=== PATIENT | female | born 1945 | race Caucasian/White ===

== ENCOUNTER 2016-11-22 14:05 | Inpatient (IN) | payer MEDICARE, BC ==
[2016-11-22] MEDS ORDERED: SODIUM CHLORIDE 0.9% 500 ML IV STA (14:42)
[2016-11-22] MEDS ORDERED: SODIUM CHLORIDE 0.9% 1,000 ML IV STA (14:42)
[2016-11-22] MEDS ORDERED: METOCLOPRAMIDE 5 MG/ML 2 ML VIAL IVP STA (14:42)
[2016-11-22 14:53] LABS: Basophils % (A) 0 %; CH 31.6; CHCM 33.8; Eosinophils % (A) 0 %; HCT 48.9 % (34.0-46.0); HDW 2.53; HGB 15.8 gm/dL (11.4-16.0); Luc # (Auto) 0.08; Luc % (Auto) 1; Lymphocytes # (A) 1.1 k/uL (1.0-4.8); Lymphocytes % (A) 11 %; MCH 30.4 pg (25.0-35.0); MCHC 32.4 g/dL (31.0-37.0); MCV 94.1 fL (80.0-100.0); Mean Platelet Volume 8.7; Monocytes # (A) 0.4 k/uL (0-1.0); Monocytes % (A) 4 %; Neutrophils # (A) 8.1 k/uL (1.3-7.7); Neutrophils % (A) 84 %; RDW 13.5 % (11.5-15.5); WBC 9.7 k/uL (3.8-10.6); WBC (Perox) 9.56
[2016-11-22 14:58] LABS: ALT 322 U/L (9-52); AST 225 U/L (14-36); Alkaline Phosphatase 155 U/L (38-126); Anion Gap 11 mmol/L; Blood Urea Nitrogen 15 mg/dL (7-17); Calcium 9.4 mg/dL (8.4-10.2); Carbon Dioxide 25 mmol/L (22-30); Chloride 106 mmol/L (98-107); Glucose 106 mg/dL (74-99); Magnesium 1.9 mg/dL (1.6-2.3); Non-African American GFR(MDRD) >60 (>60 ml/min/1.73 sqM); Potassium 3.6 mmol/L (3.5-5.1); Sodium 142 mmol/L (137-145); Total Bilirubin 2.8 mg/dL (0.2-1.3)
[2016-11-22 15:00] LABS: Creatine Kinase 52 U/L (30-135)
[2016-11-22 15:13] LABS: INR 1.2 (<1.1); Partial Thromboplastin Time 25.9 sec (22.0-30.0); Prothrombin Time 12.3 sec (9.0-12.0)
[2016-11-22 15:14] LABS: Appearance,Urine Clear (Clear); Bacteria,Urine Occasional /hpf; Bilirubin,Urine Negative (Negative); Glucose,Urine (UA) Negative (Negative); Ketones,Urine Negative (Negative); Leukocyte Esterase,Urine Small (Negative); Nitrite,Urine Negative (Negative); PH, Urine 5.5 (5.0-8.0); Particle Count 2353; Protein,Urine Negative (Negative); RBC,Urine <1 /hpf (0-5); Specific Gravity,Urine 1.003 (1.001-1.035); Squamous Epithelial Cell,Urine 2 /hpf (0-4); UA Billing (MACRO vs. MICRO) MICRO; Urobilinogen,Urine <2.0 mg/dL (<2.0); WBC,Urine 2 /hpf (0-5)
[2016-11-22 15:14] LABS: Creatine Kinase MB 0.8 ng/mL (0.0-2.4); Troponin I <0.012 ng/mL (0.000-0.034)
--- NOTE | 2016-11-22 15:49 | XR ---
EXAMINATION TYPE: XR chest 2V DATE OF EXAM: 11/22/2016 3:26 PM COMPARISON: Chest x-ray July 16, 2016 HISTORY: Weakness and chest pressure. History of heart attack and COPD TECHNIQUE: Frontal and lateral views of the chest are obtained. FINDINGS: Osseous structures are demineralized. Postsurgical change lower cervical spine is partiall y imaged with fusion plate and posterior fusion hardware. Post surgical changes right shoulder level is partially imaged. There is mild cardiomegaly on current study. There is underlying emphysematous change. Small amount o f fluid within fissure left lung is felt present. There is patchy left basilar atelectasis. Right sofia g is clear. No pneumothorax is seen bilaterally. IMPRESSION: Chronic parenchymal changes with new mild cardiomegaly. Possible mild fluid overload sta te, clinical correlation for CHF exacerbation advised.
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
[2016-11-22] MEDS ORDERED: NALOXONE 0.4 MG/ML 1 ML VIAL IV PRN (17:13)
[2016-11-22] MEDS: SODIUM CHLORIDE 0.9% 1,000 ML IV SCH (19:09)
[2016-11-22] MEDS: DIPYRIDAMOLE-ASPIRIN 200-25 MG 1 EACH CPMP.12HR PO SCH (20:36)
[2016-11-22] MEDS: PREGABALIN 75 MG CAP PO SCH (20:37)
[2016-11-22] MEDS: NAPROXEN 250 MG TAB PO PRN (20:37)
[2016-11-22] MEDS: FAMOTIDINE 20 MG TAB PO SCH (20:37)
[2016-11-22 20:45] LABS: Creatine Kinase 42 U/L (30-135)
[2016-11-22 20:58] LABS: Creatine Kinase MB 0.7 ng/mL (0.0-2.4); Troponin I <0.012 ng/mL (0.000-0.034)
[2016-11-22] MEDS ORDERED: FUROSEMIDE 10 MG/ML 4 ML VIAL IV SCH (21:00)
[2016-11-22] MEDS ORDERED: METOPROLOL TARTRATE 12.5 MG TAB PO SCH (21:00)
[2016-11-22] MEDS: ALPRAZolam 0.25 MG TAB PO PRN (23:01)
[2016-11-23 03:09] LABS: Creatine Kinase 42 U/L (30-135)
[2016-11-23 03:22] LABS: Creatine Kinase MB 0.7 ng/mL (0.0-2.4); Troponin I <0.012 ng/mL (0.000-0.034)
[2016-11-23] MEDS ORDERED: SODIUM CHLORIDE 0.9% 250 ML IV SCH (05:30)
[2016-11-23] MEDS: LEVOTHYROXINE 137 MCG TAB PO SCH (05:35)
[2016-11-23 09:29] LABS: Anion Gap 8 mmol/L; Blood Urea Nitrogen 18 mg/dL (7-17); Calcium 8.5 mg/dL (8.4-10.2); Carbon Dioxide 26 mmol/L (22-30); Chloride 108 mmol/L (98-107); Glucose 103 mg/dL (74-99); Non-African American GFR(MDRD) >60 (>60 ml/min/1.73 sqM); Potassium 3.6 mmol/L (3.5-5.1); Sodium 142 mmol/L (137-145)
[2016-11-23] MEDS: FAMOTIDINE 20 MG TAB PO SCH ×2 (10:08→22:05)
[2016-11-23] MEDS: OXYBUTYNIN XL 5 MG TAB.ER.24 PO SCH (10:08)
[2016-11-23] MEDS: PREGABALIN 75 MG CAP PO SCH ×3 (10:08→22:06)
[2016-11-23] MEDS: DIPYRIDAMOLE-ASPIRIN 200-25 MG 1 EACH CPMP.12HR PO SCH ×2 (10:08→22:05)
[2016-11-23] MEDS: SODIUM CHLORIDE 0.9% 1,000 ML IV SCH (10:48)
[2016-11-23] MEDS: ONDANSETRON 4 MG/2 ML VIAL IVP PRN (10:48)
[2016-11-23] MEDS ORDERED: SODIUM CHLORIDE 0.9% 500 ML IV ONE ×3 (11:01→13:30)
[2016-11-23] MEDS ORDERED: Potassium Replacement Protocol 1 EACH MISC MISCELLANE PRN (11:01)
[2016-11-23 11:55] LABS: Glucose,Whole Blood 95 mg/dL (75-99)
[2016-11-23 12:16] LABS: Glucose,Whole Blood 92 mg/dL (75-99)
--- NOTE | 2016-11-23 13:09 | XR ---
EXAMINATION TYPE: XR chest 1V DATE OF EXAM: 11/23/2016 1:05 PM CLINICAL HISTORY: Difficulty breathing and CHF progress study. TECHNIQUE: Single AP portable upright view of the chest is obtained. COMPARISON: Chest x-ray from one day earlier FINDINGS: Heart size is stable and mildly enlarged. There is chronic parenchymal change with persist ent left basilar opacity. Right lung remains clear. Osseous structures are demineralized. Postsurgica l changes lower cervical spine is redemonstrated. Postsurgical change right shoulder is also partiall y imaged. IMPRESSION: Chronic parenchymal change and mild cardiomegaly with patchy left basilar atelectasis and /or infiltrate redemonstrated. No new infiltrate is seen.
[2016-11-23 14:00] LABS: Glucose,Whole Blood 128 mg/dL (75-99)
[2016-11-23] MEDS: POTASSIUM CHLORIDE 10 MEQ, LIDOCAINE 2% INJ 10 MG in SODIUM CHLORIDE 0.9% 100 ML IV SCH ×2 (14:02→16:23)
[2016-11-23] MEDS: PANTOPRAZOLE 40 MG/10 ML VIAL IVP SCH (18:49)
--- NOTE | 2016-11-23 21:54 | HP ---
DATE OF ADMISSION: 11/23/2016 CHIEF COMPLAINT: Weakness. HISTORY OF PRESENT ILLNESS: This 71-year-old woman with a past medical history of multiple medical problems, including history of CAD, history of CHF, COPD, CVA, TIA, fibromyalgia, hypertension, hyperlipidemia, history of myocardial infarction, history of back surgery, history of DJD and depression being followed by Dr. Alissa Ulrich in the outpatient setting complaining of generalized tiredness and achiness. The patient had previously bilateral pneumonia and severe COPD and CHF with chronic diastolic dysfunction, ejection 50% percent, also. The patient was found to have relative hypotension intermittently and the laboratory values also at the time of admission showed elevated LFTs of undetermined etiology and the patient admitted for further evaluation and treatment at this time. There is no history of any fever, rigors, chills. No history of headache, loss of consciousness, seizures. The patient was given multiple fluid boluses. PAST MEDICAL HISTORY: CAD, CHF, COPD, CVA, TIA, fibromyalgia, hypertension, hyperlipidemia, history of myocardial infarction, history of hypothyroidism, adenoidectomy, appendectomy, thyroidectomy, depression. Medications prior to admission include home medications are: 1. [place] 10 mg q.4 p.r.n. 2. Lopressor 12.5 mg q.h.s. 4. Lyrica 150 mg daily. 5. Naprosyn 500 mg b.i.d. p.r.n. 6. Aggrenox 25/200, 1 p.o. b.i.d. 7. VESIcare 10 mg p.o. daily. 8. Zocor 10 mg q.h.s. 9. Synthroid 135 mcg p.o. ALLERGIES ARE BACTRIM AND OXYCODONE. FAMILY HISTORY: History of myocardial infarction. SOCIAL HISTORY: Previous history of marijuana smoking. No history of other smoking, alcohol intake. REVIEW OF SYSTEMS: ENT: Diminished hearing, diminished vision. CARDIOVASCULAR: As mentioned earlier. GI: No nausea. : No dysuria. NERVOUS: As mentioned earlier. ALLERGY/IMMUNOLOGY: No asthma or hay fever. MUSCULOSKELETAL: As mentioned earlier. HEMATOLOGY/ONCOLOGY: No history of anemia. ENDOCRINE: Hypothyroidism. CONSTITUTIONAL: As mentioned earlier. DERMATOLOGY: Negative. RHEUMATOLOGY: Negative. PSYCHIATRY: As mentioned earlier. PHYSICAL EXAMINATION: Alert and oriented x3. Pulse is 78, blood pressure to 83/54, respirations 20, temperature normal, pulse ox 98% on 2L. HEENT: Conjunctivae normal. Oral mucosa dry. Neck is no jugular venous distension. No thyroid enlargement. No carotid bruits. CARDIOVASCULAR: S1 and S2 muffled. No S3. No S4, ejection systolic murmur. RESPIRATORY: Breath sounds diminished in the bases. A few scattered rhonchi. No crackles. Abdomen is soft, nontender. No mass palpable. LEGS: No edema. No swelling. NERVOUS SYSTEM: Higher functions as mentioned. Moves all 4 limbs. No focal motor or sensory deficits. LYMPHATIC: No lymph node palpable in neck, axillae or groins. SKIN: No ulcer, rash or bleeding. LABS: Platelets are 138. Otherwise, creatinine is normal at 0.75. LFTs are as noted. Troponins are negative. The EKG present on admission showed with possible LA enlargement. Chest x-ray done on admission showed chronic parenchymal changes and possible fluid overload and chest x-ray repeat was also noted. ASSESSMENT: 1. Weakness, hypotension for evaluation, possibly medication induced. Rule out primary cardiac disorder. possible sepsis Elevated LFTs: AST, ALT, total bilirubin, possible acute hepatitis etiology undetermined. 2. Thrombocytopenia. 3. History of congestive heart failure, ejection fraction 50% with chronic diastolic dysfunction. 4. History of coronary artery disease, chest pain, history of cerebrovascular accident, transient ischemic attack. 5. History of chronic obstructive pulmonary disease. 6. History of fibromyalgia. 7. History of hypertension. 8. History of hyperlipidemia. 9. Myocardial infarction. 10. History of pneumonia. 11. History of weight loss, 10 to 15 pounds. 12. Chronic back pain, degenerative joint disease. 13. Appendectomy. 14. History of claustrophobia. 15. Depression. 16. History of nicotine dependence. 17. FULL CODE. RECOMMENDATIONS AND DISCUSSION: In this 71-year-old woman who presented with multiple complex medical issues, we will monitor the patient closely. Continue with the current medications and symptomatic treatment. Repeat a fluid bolus; however, I would recommend transfer to ICU and close monitoring because of history of CHF and other issues. Other than that, cautious IV fluids. Repeat labs. Will also obtain cultures. Dr. Soto will be consulted for ICU management. Dr. Arevalo will consult for elevated LFTs. cultures will be obtained. Again, etiology uncertain. Will avoid nephrotoxic medications also. See orders for further details because of multiple complex medical issues. A copy of this dictation is being forwarded the patient Dr. Alissa Ulrich, who is the primary physician. Medication reconciliation is also being done. EMELINA
[2016-11-23] MEDS: MELATONIN 3 MG TABLET PO SCH (22:04)
[2016-11-23] MEDS: HEPARIN SODIUM,PORCINE 5,000 UNIT/ML 1 ML VIAL SQ SCH (22:05)
--- NOTE | 2016-11-23 22:14 | CONS ---
REASON FOR CONSULTATION: 1. Chest discomfort. 2. Systemic hypotension. HISTORY OF PRESENT ILLNESS: This is a pleasant 71-year-old female patient who sees Dr. Reginaldo Vasquez as an outpatient with a known history of coronary artery disease and prior myocardial infarction, congestive heart failure, chronic obstructive pulmonary disease, as well as history of TIA/CVA, was brought to the emergency room by her family because she was not feeling well. The patient states that she was just feeling weak lately. Beside that, she has been describing what seems to be chest discomfort. Also she describes intermittent episodes of nausea and vomiting. The patient was initially admitted into [facility]. She was found to be hypotensive with a systolic blood pressure around 90 and in view of that, the patient was transferred to the intensive care unit. The patient underwent an EKG which showed sinus mechanism with a sinus tachycardia at a heart rate around 100. She underwent a chest x-ray which showed chronic parenchymal changes with mild cardiomegaly and without any acute abnormalities. The patient had also 2 sets of cardiac enzymes that came in to be unremarkable. Her kidney function seems to be within normal limits. What was found on the blood work that she has abnormal liver function test with abnormal AST and ALT and also elevated bilirubin. The patient is not aware of any prior history of percutaneous coronary intervention in terms of stenting. It seems to be that her pressure has been about 100 mm systolic after she received some IV fluid. Past medical history includes: 1. CAD with a prior [place]. 2. Congestive heart failure. 3. History of CVA. 4. Hypothyroidism. SOCIAL HISTORY: She does not smoke or drink alcohol. Family history is not relevant. Current medications include: 1. Xanax 0.25 mg every 6 hours p.r.n. 2. Aggrenox 1 tablet b.i.d. 3. Pepcid 20 mg p.o. b.i.d. 4. Heparin 5000 subcu q.12 hours. 5. Synthroid 137 mcg p.o. daily. 6. Melatonin 3 mg p.o. q.h.s. 7. Naproxen 500 mg p.o. b.i.d. 8. Protonix 40 mg IV daily. 9. Lyrica 150 mg p.o. t.i.d. 10. She is on normal saline at 50 mL per hour. 11. Requip 3 mg p.o. t.i.d. 12. Ditropan 10 mg p.o. daily. 13. Zofran 4 mg IV every 6 hours. PHYSICAL EXAMINATION: GENERAL APPEARANCE: She does not look in any pain or distress. The patient is lying flat in bed. Vitals showed heart rate of 87 beats per minute, pressure is 89/57 mmHg, saturation is 96% on room on 2L. Cardiovascular shows regular rate and rhythm with a systolic murmur, right upper sternal border. Respiratory shows clear breathing sounds bilaterally. EXTREMITIES: No pedal edema was noted. DIAGNOSTIC WORKUP: The EKG as described above showed sinus tachycardia without any ischemic changes. The chest x-ray showed cardiomegaly with chronic parenchymal. Blood work showed the following: WBC 9.7, hemoglobin 15.8, platelet count of 138,000. The patient's INR is 1.2. Sodium 142, potassium 3.6, creatinine 0.83, BUN of 18. The troponin is normal limits. Total bilirubin of 2.8, AST was 225, ALT 155. ASSESSMENT: 1. Systemic hypotension of unknown etiology. 2. Generalized weakness and fatigue. 3. Chest discomfort. 4. Multiple comorbid conditions. PLAN: 1. Sepsis to be ruled out and blood culture and urine culture were sent already. 2. The patient's cortisol level was checked already as well. 3. Agree to keep the patient on the current above dose of 0.9 normal saline. 4. The patient possibly is dehydrated because of the nausea and vomiting the last few days. 5. I will obtain an echocardiogram with Doppler. 6. Severe underlying CAD to be ruled out and when the patient's blood pressure is stable, I will consider doing a stress test on her. 7. We will continue following up with her.
[2016-11-23] MEDS ORDERED: SODIUM CHLORIDE 0.9% 1,000 ML IV ONE (23:27)
[2016-11-24] MEDS ORDERED: NOREPINEPHRINE 4 MG in SODIUM CHLORIDE 0.9% 250 ML IV SCH (02:15)
[2016-11-24 05:28] LABS: Basophils % (A) 1 %; CH 30.9; CHCM 32.5; Eosinophils # (A) 0.1 k/uL (0-0.7); Eosinophils % (A) 2 %; HCT 38.5 % (34.0-46.0); HDW 2.57; Luc # (Auto) 0.12; Luc % (Auto) 3; Lymphocytes # (A) 1.2 k/uL (1.0-4.8); Lymphocytes % (A) 26 %; MCH 31.4 pg (25.0-35.0); MCHC 32.8 g/dL (31.0-37.0); MCV 95.5 fL (80.0-100.0); Mean Platelet Volume 7.9; Monocytes # (A) 0.3 k/uL (0-1.0); Monocytes % (A) 7 %; Neutrophils # (A) 2.9 k/uL (1.3-7.7); Neutrophils % (A) 62 %; RBC 4.03 m/uL (3.80-5.40); RDW 13.9 % (11.5-15.5); WBC 4.7 k/uL (3.8-10.6)
[2016-11-24 05:40] LABS: ALT 142 U/L (9-52); AST 42 U/L (14-36); Alkaline Phosphatase 99 U/L (38-126); Anion Gap 8 mmol/L; Blood Urea Nitrogen 12 mg/dL (7-17); Calcium 8.3 mg/dL (8.4-10.2); Carbon Dioxide 21 mmol/L (22-30); Chloride 114 mmol/L (98-107); Glucose 112 mg/dL (74-99); Magnesium 1.7 mg/dL (1.6-2.3); Non-African American GFR(MDRD) >60 (>60 ml/min/1.73 sqM); Phosphorous 3.3 mg/dL (2.5-4.5); Sodium 143 mmol/L (137-145); Total Bilirubin 0.6 mg/dL (0.2-1.3); Total Protein 5.3 g/dL (6.3-8.2)
[2016-11-24 05:42] LABS: HGB 12.6 gm/dL (11.4-16.0)
[2016-11-24] MEDS: NAPROXEN 250 MG TAB PO PRN (05:47)
[2016-11-24] MEDS: LEVOTHYROXINE 137 MCG TAB PO SCH (05:48)
[2016-11-24] MEDS ORDERED: Magnesium Replacement Protocol 1 EACH MISC MISCELLANE PRN (05:52)
[2016-11-24] MEDS: MAGNESIUM SULFATE-D5W PMX 1 GM in DEXTROSE/WATER 1 100ML.BAG IVPB SCH ×2 (06:50→08:10)
--- NOTE | 2016-11-24 07:24 | XR ---
EXAMINATION TYPE: XR chest 1V portable DATE OF EXAM: 11/24/2016 6:43 AM CLINICAL HISTORY: Difficulty breathing and CHF progress study. TECHNIQUE: Single AP portable upright view of the chest is obtained. COMPARISON: Chest x-ray from one day earlier FINDINGS: Cardiac silhouette size is stable and felt mildly enlarged. There is chronic parenchymal c hange with persistent left basilar opacity. Right lung remains clear. Osseous structures are somewhat demineralized. Postsurgical change right shoulder is partially imaged. IMPRESSION: Overall stable findings, chronic parenchymal changes and cardiomegaly with persistent l eft basilar atelectasis and/or infiltrate redemonstrated.
[2016-11-24] MEDS: PREGABALIN 75 MG CAP PO SCH ×3 (08:11→22:12)
[2016-11-24] MEDS: PANTOPRAZOLE 40 MG/10 ML VIAL IVP SCH (08:11)
[2016-11-24] MEDS: HEPARIN SODIUM,PORCINE 5,000 UNIT/ML 1 ML VIAL SQ SCH ×2 (08:11→22:12)
[2016-11-24] MEDS: OXYBUTYNIN XL 5 MG TAB.ER.24 PO SCH (08:11)
[2016-11-24] MEDS: FAMOTIDINE 20 MG TAB PO SCH (08:11)
[2016-11-24] MEDS: DIPYRIDAMOLE-ASPIRIN 200-25 MG 1 EACH CPMP.12HR PO SCH ×2 (08:11→22:12)
[2016-11-24] MEDS: SODIUM CHLORIDE 0.9% 1,000 ML IV SCH (09:10)
[2016-11-24] MEDS ORDERED: HYDROCORTISONE SUCCINATE 100 MG/2 ML VIAL IV STA (10:18)
[2016-11-24] MEDS: ONDANSETRON 4 MG/2 ML VIAL IVP PRN (10:30)
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
--- NOTE | 2016-11-24 16:41 | P.PN ---
Subjective This is a pleasant 71-year-old female patient who sees Dr. VC Vasquez as an outpatient with a past medical history significant for coronary artery disease and prior [facility], congestive heart failure, COPD, as well as history of TIA/ CVA, was admitted to the hospital with hypotension. Initially she was started on IV fluid but she continues to be hypotensive and she required to be on vasopressors was Levophed. I'll follow-up with her today, she continues requiring small dose of Levophed. Overall she is feeling better. The blood culture came in to be positive for gram-negative bacteria and the patient was started on antibiotic. Also the cortisol level was checked and came in to be low and she currently she is on steroids. An echocardiogram was ordered and is in process to be done. Objective - Vital Signs Vital signs: Vital Signs Temp 97.6 F 11/24/16 12:00 Pulse 74 11/24/16 15:00 Resp 18 11/24/16 15:00 BP 113/70 11/24/16 15:00 Pulse Ox 93 L 11/24/16 15:00 Intake & Output 11/23/16 11/24/16 11/24/16 18:59 06:59 18:59 Intake Total 3070 9314.953 5707.579 Output Total 825 750 600 Balance 2245 892.418 569.579 Weight 84.6 kg Intake: IV 2000 Sodium Chloride 0.9% 500 2000 ml @ 999 mls/hr IV .Q31M [facility] Rx#:[id number] Intake, IV Titration 400 1642.418 689.579 Amount Magnesium Sulfate-D5w Pmx 100 1 gm In Dextrose/Water 1 100ml.bag @ 100 mls/hr IVPB Q1H [facility] Rx#: [id number] Norepinephrine 4 mg In 42.418 39.579 Sodium Chloride 0.9% 250 ml @ Titrate IV .Q0M [facility] Rx#:[id number] Potassium Chloride 10 meq 200 Lidocaine 2% Inj 10 mg In Sodium Chloride 0.9% 100 ml @ 100 mls/hr IV Q1HR [facility] Rx#:[id number] Sodium Chloride 0.9% 1, 200 550 450 000 ml @ 50 mls/hr IV . Q20H [facility] Rx#:[id number] Sodium Chloride 0.9% 1, 1000 000 ml @ 999 mls/hr IV . Q1H1M [facility] Rx#:[id number] cefTRIAXone 1,000 mg In 50 100 Sodium Chloride 0.9% 50 ml @ 100 mls/hr IVPB Q24HR [facility] Rx#:[id number] Oral 670 480 Output: Urine 825 750 600 Other: Voiding Method Bedpan Bedpan Bedside Commode Bedpan # Voids 1 0 - Constitutional General appearance: Present: no acute distress - Respiratory Respiratory: bilateral: CTA - Cardiovascular Rhythm: regular Heart sounds: normal: S1, S2 - Labs CBC & Chem 7: 11/24/16 05:01 11/24/16 05:01 Labs: Abnormal Lab Results - Last 24 Hours (Table) 11/23/16 11/24/16 11/24/16 Range/Units 19:05 05:01 05:01 Plt Count 129 L (150-450) k/uL Chloride 114 H (98-107) mmol/L Carbon Dioxide 21 L (22-30) mmol/L Glucose 112 H (74-99) mg/dL Calcium 8.3 L (8.4-10.2) mg/dL AST 42 H (14-36) U/L ALT 142 H (9-52) U/L Total Protein 5.3 L (6.3-8.2) g/dL Albumin 2.8 L (3.5-5.0) g/dL TSH (0.465-4.680) mIU/L U Benzodiazepines Scrn Detected H (NotDetected) 11/24/16 Range/Units 05:01 Plt Count (150-450) k/uL Chloride (98-107) mmol/L Carbon Dioxide (22-30) mmol/L Glucose (74-99) mg/dL Calcium (8.4-10.2) mg/dL AST (14-36) U/L ALT (9-52) U/L Total Protein (6.3-8.2) g/dL Albumin (3.5-5.0) g/dL TSH <0.015 L (0.465-4.680) mIU/L U Benzodiazepines Scrn (NotDetected) Assessment and Plan Plan: Assessment #1 hypotension #2 possible sepsis #3 CAD #4 multiple comorbid conditions Plan #1 right wean the patient from the Levophed #2 she is on antibiotic regarding the blood culture #3 waiting for the echocardiogram to be performed #4 follow-up with the patient
[2016-11-24] MEDS: HYDROCORTISONE SUCCINATE 100 MG/2 ML VIAL IV SCH (16:51)
[2016-11-24] MEDS: MELATONIN 3 MG TABLET PO SCH (23:19)
[2016-11-25] MEDS: HYDROCORTISONE SUCCINATE 100 MG/2 ML VIAL IV SCH ×2 (00:03→08:42)
[2016-11-25] MEDS: diphenhydrAMINE 25 MG CAP PO PRN ×2 (01:34→22:43)
[2016-11-25 04:57] LABS: Basophils % (A) 0 %; CH 30.6; CHCM 31.5; Eosinophils % (A) 0 %; HCT 41.1 % (34.0-46.0); HDW 2.56; HGB 12.9 gm/dL (11.4-16.0); Hypochromasia Slight; Luc # (Auto) 0.03; Luc % (Auto) 1; Lymphocytes # (A) 0.5 k/uL (1.0-4.8); Lymphocytes % (A) 17 %; MCH 30.6 pg (25.0-35.0); MCHC 31.4 g/dL (31.0-37.0); MCV 97.4 fL (80.0-100.0); Mean Platelet Volume 8.3; Monocytes # (A) 0.1 k/uL (0-1.0); Monocytes % (A) 3 %; Neutrophils # (A) 2.5 k/uL (1.3-7.7); Neutrophils % (A) 79 %; RBC 4.22 m/uL (3.80-5.40); RDW 13.6 % (11.5-15.5); WBC 3.2 k/uL (3.8-10.6); WBC (Perox) 3.39
[2016-11-25 05:23] LABS: ALT 120 U/L (9-52); AST 35 U/L (14-36); Alkaline Phosphatase 93 U/L (38-126); Anion Gap 10 mmol/L; Blood Urea Nitrogen 9 mg/dL (7-17); Calcium 8.7 mg/dL (8.4-10.2); Carbon Dioxide 21 mmol/L (22-30); Chloride 111 mmol/L (98-107); Glucose 161 mg/dL (74-99); Magnesium 2.1 mg/dL (1.6-2.3); Non-African American GFR(MDRD) >60 (>60 ml/min/1.73 sqM); Potassium 4.3 mmol/L (3.5-5.1); Sodium 142 mmol/L (137-145); Total Bilirubin 0.4 mg/dL (0.2-1.3); Total Protein 5.4 g/dL (6.3-8.2)
[2016-11-25] MEDS: LEVOTHYROXINE 112 MCG TAB PO SCH (05:51)
[2016-11-25] MEDS: SODIUM CHLORIDE 0.9% 1,000 ML IV SCH (06:37)
[2016-11-25] MEDS: PANTOPRAZOLE 40 MG/10 ML VIAL IVP SCH (08:42)
[2016-11-25] MEDS: HEPARIN SODIUM,PORCINE 5,000 UNIT/ML 1 ML VIAL SQ SCH ×2 (08:43→22:43)
[2016-11-25] MEDS: OXYBUTYNIN XL 5 MG TAB.ER.24 PO SCH (08:43)
[2016-11-25] MEDS: PREGABALIN 75 MG CAP PO SCH ×3 (08:43→22:44)
[2016-11-25] MEDS: DIPYRIDAMOLE-ASPIRIN 200-25 MG 1 EACH CPMP.12HR PO SCH ×2 (08:43→22:43)
--- NOTE | 2016-11-25 10:34 | CDI ---
In responding to this query, please exercise your independent professional judgment. The [facility] Coding Staff and Clinical Documentation Specialists appreciate your assistance in clarifying documentation, maintaining compliance with coding guidelines, accurately documenting patients condition and capturing severity of illness. The fact that a question is asked does not imply that any particular answer is desired or expected. Communication forms are a method of clarifying documentation and are not made part of the Legal Health Record. Thank you in advance for your clarification. Last Revision, January 2016 Roly S[address] [place] [address] Documentation Clarification Form Date: 11/25/2016 10:12:00 AM From: Shadia Quiñonez RN Admit Date: 11/22/2016 5:13:00 PM Patient Name: Jessica Scanlon Visit Number: [id number] Dr. Nora Negron Patient history/risk factors: CAD, CHF, CVA, HTN, Hyperlipidemia, Hx of [place] Clinical Indicators: 11/22 H&P: "Weakness, hypotension for evaluation, possibly med induced. Possible Sepsis." Vitals: HR 70's, RR 16, B/P 80-90/ 50-60 on Levophed Treatment: 2,250 ML 0.9%NS Fluid Bolus Norepinephrine gtt- titrate for B/P In your professional opinion, can you please specify the type of shock if known ? Septic Shock o Suspected or known causative organism o Any associated organ failure Cardiogenic Shock o Cause Hypovolemic Shock o Cause Other, please specify Unable to determine Please document in your progress notes and discharge summary in order to capture severity of illness and risk of mortality. Include clinical findings that support your diagnosis. FYI: Press F11 to launch patient chart. Place X here if this finding has no clinical significance, is not applicable or if you are not able to provide any additional documentation. EMELINA
--- NOTE | 2016-11-25 10:40 | P.PN ---
Subjective This is a 71-year-old female patient with a known history of Coronary Artery Disease (CAD), Heart Failure, COPD, CVA/TIA, Fibromyalgia, Hyperlipidemia, Hypertension, previous Myocardial Infarction ([place]), and hypothyroidism. The patient was admitted with vague complaints. Apparently had some weakness some mental status changes and was noted to have a low blood pressure. Anyway the patient was evaluated thoroughly in the emergency room and was initially admitted to selective. The patient then was transferred to the ICU. On 11/25/2016, the patient is being seen in follow-up. She has been aggressively resuscitated IV fluids and she had received a total of 4 L of IV fluids. Her net fluid balance over the past 48 hours is more than 4 L positive. She required pressors briefly and currently she is off pressors in the norepinephrine infusion has been discontinued yesterday afternoon. The patient was found to have E. coli in her urine and the patient is currently on IV Rocephin. The white cell count is not elevated. The rest of the electrodes are all within normal limits. Renal function is also within normal. As for the liver function tests, these were abnormal at the time of admission and they subsequently normalized. The patient was found to have a low cortisol level at the time of admission. The patient was given stress dose hydrocortisone. Troponin is a been negative. BNP is not elevated. Chest x-ray showing cardiomegaly and a left basilar atelectasis and chronic parenchymal changes. Clinically however, the patient is improved significantly and the patient has no specific complaints today. She is gradually regaining her strength. No change in mental status. No chest pain. No nausea or vomiting. She tolerated her breakfast this morning. Note that echocardiogram from June 2016 showed a preserved LV function with an ejection fraction of 6065%, moderate mitral valve calcification, mild mitral regurgitation, [id number] pulmonary hypertension with a PA pressure of 43. Note that the patient was also in the hospital and June 2016 for bilateral pneumonia and COPD exacerbation. She was treated as an inpatient for a total of 10 days and she was discharged home. During her hospital stay she had a bronchoscopy that showed primarily candidal on examination. Objective - Vital Signs Vital signs: Vital Signs Temp 97.7 F 11/25/16 08:00 Pulse 74 11/25/16 09:00 Resp 21 11/25/16 09:00 BP 105/67 11/25/16 09:00 Pulse Ox 96 11/25/16 09:00 Intake & Output 11/24/16 11/25/16 11/25/16 18:59 06:59 18:59 Intake Total 1561.036 750 440 Output Total 1100 800 400 Balance 461.036 -50 40 Weight 81.2 kg Intake: IV 600 100 Sodium Chloride 0.9% 1, 600 100 000 ml @ 50 mls/hr IV . Q20H [facility] Rx#:[id number] Intake, IV Titration 841.036 50 100 Amount Magnesium Sulfate-D5w Pmx 100 1 gm In Dextrose/Water 1 100ml.bag @ 100 mls/hr IVPB Q1H [facility] Rx#: [id number] Norepinephrine 4 mg In 41.036 Sodium Chloride 0.9% 250 ml @ Titrate IV .Q0M [facility] Rx#:[id number] Sodium Chloride 0.9% 1, 600 50 50 000 ml @ 50 mls/hr IV . Q20H [facility] Rx#:[id number] cefTRIAXone 1,000 mg In 100 50 Sodium Chloride 0.9% 50 ml @ 100 mls/hr IVPB Q24HR [facility] Rx#:[id number] Oral 720 100 240 Output: Urine 1100 800 400 Other: Voiding Method Bedside Commode Bedside Commode Bedpan # Voids 0 0 - Exam The patient appeared well nourished and normally developed. Vital signs as documented. Head exam is unremarkable. No scleral icterus or corneal arcus noted. Neck is without jugular venous distension, thyromegaly, or carotid bruits. Carotid upstrokes are brisk bilaterally. Lungs are clear to auscultation and percussion. Cardiac exam reveals the PMI to be normally sized and situated. Rhythm is regular. First and second heart sounds normal. No murmurs, rubs or gallops. Abdominal exam reveals normal bowel sounds, no masses , no organomegaly and no aortic enlargement. Extremities are nonedematous and both femoral and pedal pulses are normal. - Labs CBC & Chem 7: 11/25/16 04:19 11/25/16 04:19 Labs: Abnormal Lab Results - Last 24 Hours (Table) 11/24/16 11/25/16 11/25/16 Range/Units 05:01 04:19 04:19 WBC 3.2 L (3.8-10.6) k/uL Plt Count 104 L (150-450) k/uL Lymphocytes # 0.5 L (1.0-4.8) k/uL Chloride 111 H (98-107) mmol/L Carbon Dioxide 21 L (22-30) mmol/L Creatinine 0.50 L (0.52-1.04) mg/dL Glucose 161 H (74-99) mg/dL ALT 120 H (9-52) U/L Total Protein 5.4 L (6.3-8.2) g/dL Albumin 3.0 L (3.5-5.0) g/dL TSH <0.015 L (0.465-4.680) mIU/L Microbiology - Last 24 Hours (Table) 11/23/16 18:30 Blood Culture - Preliminary Blood No Growth after 24 hours 11/23/16 16:56 Blood Culture - Preliminary Blood No Growth after 24 hours Assessment and Plan Plan: Assessment 1 generalized weakness with hypotension and dehydration and possibly a gram- negative urine checked infection with E. coli. The patient was resuscitated with IV fluids. The patient was placed on IV Rocephin. Hemodynamically stable and currently off vasopressors. 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 Continue the maintenance fluid of 50 mL an hour of normal saline. Over the patient out of the intensive care unit. Continue the Rocephin. We'll continue to follow.
--- NOTE | 2016-11-25 11:22 | ECHOF ---
Referral Reason: MEASUREMENTS -------- HEIGHT: 152.4 cm WEIGHT: 81.2 kg BP: 104/63 RVIDd: 2.7 cm (< 3.3) IVSd: 1.0 cm (0.6 - 1.1) LVIDd: 4.2 cm (3.9 - 5.3) LVPWd: 1.0 cm (0.6 - 1.1) IVSs: 1.5 cm LVIDs: 2.6 cm LVPWs: 1.5 cm LA Diam: 3.5 cm (2.7 - 3.8) LAESV Index (A-L): 44.46 ml/m Ao Diam: 3.1 cm (2.0 - 3.7) AV Cusp: 1.9 cm (1.5 - 2.6) MV EXCURSION: 8.785 mm (> 18.000) MV EF SLOPE: 24 mm/s (70 - 150) EPSS: 0.7 cm MV E Obey: 1.96 m/s MV DecT: 566 ms MV A Obey: 1.48 m/s MV E/A Ratio: 1.32 RAP: 15.00 mmHg RVSP: 47.02 mmHg FINDINGS -------- Resting bradycardia (HR<60bpm). This was a technically good study. The left ventricular size is normal. Left ventricular wall thickness is normal. Overall left ventricular systolic function is normal with, an EF between 60 - 65 %. The right ventricle is normal in size. The global wall thickness of the right ventricle is mildly enlarged. LA is severely dilated >40 ml/m2 The right atrium is normal in size. There is mild aortic valve sclerosis. The mitral valve leaflets are moderately thickened. Moderate mitral annular calcification present. Moderate mitral regurgitation is present. The peak and mean MV gradients are 24.10mmHg 5.86mmHg as measured by doppler. Moderate mitral stenosis. Moderate tricuspid regurgitation present. There is moderate pulmonary hypertension. The right ventricular systolic pressure, as measured by Doppler, is 47.02mmHg. Trace/mild (physiologic) pulmonic regurgitation. The aortic root size is normal. The inferior vena cava is dilated with no significant inspiratory collapse which is consistent estimated right atrial pressure of >20 mmHg. There is no pericardial effusion. CONCLUSIONS -------- 1. Resting bradycardia (HR<60bpm). 2. There is mild aortic valve sclerosis. 3. The mitral valve leaflets are moderately thickened. 4. Moderate mitral annular calcification present. 5. Moderate mitral regurgitation is present. 6. The peak and mean MV gradients are 24.10mmHg 5.86mmHg as measured by doppler. 7. Moderate mitral stenosis. 8. Moderate tricuspid regurgitation present. 9. There is moderate pulmonary hypertension. 10. The right ventricular systolic pressure, as measured by Doppler, is 47.02mmHg. 11. Trace/mild (physiologic) pulmonic regurgitation. 12. This was a technically good study. 13. The aortic root size is normal. 14. The inferior vena cava is dilated with no significant inspiratory collapse which is consistent estimated right atrial pressure of >20 mmHg. 15. There is no pericardial effusion. 16. The left ventricular size is normal. 17. Left ventricular wall thickness is normal. 18. Overall left ventricular systolic function is normal with, an EF between 60 - 65 %. 19. The right ventricle is normal in size. 20. The global wall thickness of the right ventricle is mildly enlarged. 21. LA is severely dilated >40 ml/m2 22. The right atrium is normal in size. SUPERVISOR KNITTING: Laly Castillo RDCS
--- NOTE | 2016-11-25 14:12 | PN ---
DATE OF SERVICE: 11/24/2016 This 71-year-old woman admitted with weakness and hypotension, possibly related to sepsis, gram-negative bacteria is grown from the cultures. The patient was transferred to ICU after pressor support and Levophed and IV fluids. Patient is feeling much better. LFTs are still elevated. Multiple consultants are following the patient closely. PATIENT MEDICAL HISTORY: Reviewed. REVIEW OF SYSTEMS: CARDIOVASCULAR SYSTEM: No angina, palpitations. RESPIRATORY: As mentioned earlier. GI: No nausea. : No dysuria. NERVOUS SYSTEM: No numbness or weakness. Current medications are reviewed and include: 1. Xanax 0.5 q.6 p.r.n. 2. Rocephin 1 gm IV daily. 3. Aggrenox b.i.d. 4. Heparin 5000 subQ b.i.d. 5. Solu-Cortef 100 mg IV q.h.s. 6. Synthroid 112 mcg p.o. daily. 7. Melatonin 3 mg q.h.s. 8. Narcan 0.2 q.2 p.r.n. 9. Naprosyn 500 mg p.o. b.i.d. 10. Zofran. 11. Ditropan XL. 12. Protonix 40 mg IV daily. 13. Lyrica 150 mg daily. 14. Requip. PHYSICAL EXAM: Patient is alert and oriented x3. The pulse is 66, blood pressure 112/71, respirations 17, temperature is normal, pulse ox 94% on room air. HEENT: Conjunctivae normal. Oral mucosa moist. NECK: No jugular venous distension. No thyroid enlargement, no lymph node enlargement. CARDIOVASCULAR SYSTEM: S1, S2, muffled. RESPIRATORY: Breath sounds diminished at the bases, a few scattered rhonchi, no crackles. Abdomen is soft, nontender, no mass palpable. EXTREMITIES: Legs no edema no swelling. NERVOUS SYSTEM: Higher functions as mentioned earlier. Moves all 4 limbs, no focal motor deficits. LYMPHATICS: No lymph node enlargement in neck, groin or axillae. SKIN: No ulcers, rash, bleeding. LABS: Platelets are 129, CBC within normal limits, cortisol is 7 and TSH less than 0.015, FT4 is 1.86. Albumin is 2.8, AST is 42 and ALT is 142. The drug screen is noted. ASSESSMENT: 1. Weakness, hypotension with possible severe sepsis and septic shock, status post IV fluids and pressor support. 2. Elevated LFTs, AST, ALT, total bilirubin, possible acute hepatitis or secondary to sepsis. 3. Thrombocytopenia. 4. History of congestive heart failure, ejection fraction 50% with chronic diastolic dysfunction. 5. History of coronary artery disease, chest pain. 6. History of cerebrovascular accident, transient ischemic attack. 7. History of chronic obstructive pulmonary disease. 8. History of fibromyalgia. 9. History of hypertension. 10. History of hyperlipidemia. 11. Myocardial infarction. 12. History of pneumonia. 13. History of weight loss, 10 to 15 pounds. 14. Chronic back pain, degenerative joint disease. 15. History of appendectomy. 16. History of claustrophobia. 17. History of depression. 18. History of nicotine dependence. 19. FULL CODE. RECOMMENDATION: In this 71-year-old woman who presented with multiple complex medical issues, will monitor the patient closely. Continue with the current medications, continue with the symptomatic treatment. Otherwise, at this time I would recommend continue with IV fluids, continue with the empiric antibiotics. Follow the cultures and closely monitor. Dr. Soto is following the patient closely. We will repeat cultures also. Will await the report of the cultures, otherwise, continue to monitor. The patient is on IV Rocephin. I would recommend DVT prophylaxis and continue to monitor, further recommendations to follow. Hold IV antihypertensive medications.
--- NOTE | 2016-11-25 18:41 | PN ---
ADDENDUM: Please note hypotension with possible septic shock of possibly secondary from gram negative bacilli and gram negative sepsis. MTDD
[2016-11-25] MEDS ORDERED: ATORVASTATIN 10 MG TAB PO SCH (21:00)
[2016-11-25] MEDS: MELATONIN 3 MG TABLET PO SCH (22:43)
[2016-11-25] MEDS: NAPROXEN 250 MG TAB PO PRN (23:45)
[2016-11-26] MEDS: SODIUM CHLORIDE 0.9% 1,000 ML IV SCH ×2 (04:14→08:35)
[2016-11-26] MEDS ORDERED: ALBUTEROL NEBULIZED 2.5 MG/3 ML INHALATION PRN (04:21)
[2016-11-26] MEDS: ALPRAZolam 0.25 MG TAB PO PRN (04:30)
--- NOTE | 2016-11-26 05:57 | PN ---
DATE OF SERVICE: 11/25/2016 PRESENTING COMPLAINT: Tired. INTERVAL HISTORY: This patient admitted with severe dehydration, possible UTI from Klebsiella pneumoniae with sepsis on presentation. The patient is eating somewhat better. Has been transferred out of the ICU. Has been up to the bathroom. Patient is at her baseline. Uses a walker. ( ). Review of systems done for constitutional, cardiovascular, GI, pulmonary; relevant findings as above. Current medications include IV ceftriaxone. On examination, temperature 98, pulse 74, respirations 16, blood pressure 103/54, pulse ox 99% on room air. GENERAL APPEARANCE: Sitting up, awake. EYES: Pupils equal. Conjunctivae not raised. Mass not palpable. RESPIRATORY: Effort normal. Lungs are clear. CARDIOVASCULAR: First and second sounds normal. No edema. ABDOMEN: Soft, nontender. Liver and spleen not palpable. PSYCHIATRY: Alert and oriented x3. Mood and affect normal. INVESTIGATIONS: White count 3.2, hemoglobin 12.9. Potassium 4.3, BUN 9, creatinine 0.50.TSH less than 0.015. ASSESSMENT: 1. Acute urinary tract infection with sepsis from Klebsiella pneumoniae, present on admission causing sepsis. 2. Chronic obstructive pulmonary disease. 3. Coronary artery disease with prior history of myocardial infarction. 4. Chronic congestive heart failure from diastolic dysfunction; ejection fraction 50% secondary to coronary artery disease. 5. Hyperlipidemia. 6. Fibromyalgia. 7. Essential hypertension. 8. Restless leg syndrome. 9. Hypothyroidism. PLAN: Overall the patient is doing better. We will switch the patient from ceftriaxone to Keflex. Appetite is doing much feeling. Patient's dose of Synthroid has already been scaled back. Will also ( ) the IV fluids. Care was discussed with the patient.
[2016-11-26] MEDS: LEVOTHYROXINE 112 MCG TAB PO SCH (06:33)
[2016-11-26] MEDS ORDERED: PANTOPRAZOLE 40 MG TABLET PO SCH (07:30)
[2016-11-26] MEDS: HEPARIN SODIUM,PORCINE 5,000 UNIT/ML 1 ML VIAL SQ SCH (08:30)
[2016-11-26] MEDS: OXYBUTYNIN XL 5 MG TAB.ER.24 PO SCH (08:30)
[2016-11-26] MEDS: DIPYRIDAMOLE-ASPIRIN 200-25 MG 1 EACH CPMP.12HR PO SCH (08:31)
[2016-11-26] MEDS: PREGABALIN 75 MG CAP PO SCH (08:31)
--- NOTE | 2016-11-26 11:25 | P.PN ---
Subjective This is a 71-year-old female patient with a known history of Coronary Artery Disease (CAD), Heart Failure, COPD, CVA/TIA, Fibromyalgia, Hyperlipidemia, Hypertension, previous Myocardial Infarction ([place]), and hypothyroidism. The patient was admitted with vague complaints. Apparently had some weakness some mental status changes and was noted to have a low blood pressure. Anyway the patient was evaluated thoroughly in the emergency room and was initially admitted to selective. The patient then was transferred to the ICU. On 11/25/2016, the patient is being seen in follow-up. She has been aggressively resuscitated IV fluids and she had received a total of 4 L of IV fluids. Her net fluid balance over the past 48 hours is more than 4 L positive. She required pressors briefly and currently she is off pressors in the norepinephrine infusion has been discontinued yesterday afternoon. The patient was found to have E. coli in her urine and the patient is currently on IV Rocephin. The white cell count is not elevated. The rest of the electrodes are all within normal limits. Renal function is also within normal. As for the liver function tests, these were abnormal at the time of admission and they subsequently normalized. The patient was found to have a low cortisol level at the time of admission. The patient was given stress dose hydrocortisone. Troponin is a been negative. BNP is not elevated. Chest x-ray showing cardiomegaly and a left basilar atelectasis and chronic parenchymal changes. Clinically however, the patient is improved significantly and the patient has no specific complaints today. She is gradually regaining her strength. No change in mental status. No chest pain. No nausea or vomiting. She tolerated her breakfast this morning. Note that echocardiogram from June 2016 showed a preserved LV function with an ejection fraction of 6065%, moderate mitral valve calcification, mild mitral regurgitation, [id number] pulmonary hypertension with a PA pressure of 43. Note that the patient was also in the hospital and June 2016 for bilateral pneumonia and COPD exacerbation. She was treated as an inpatient for a total of 10 days and she was discharged home. During her hospital stay she had a bronchoscopy that showed primarily candidal on examination. On 11/26/2016, the patient is being seen in follow-up. The patient got transferred out of the intensive care unit last night. Since then she has been doing extremely well. Ambulating. On room air. No cough or sputum production. No chest pain. She is on IV Rocephin in the urine cultures ultimately end up being Klebsiella pneumoniae. This is sensitive to Rocephin and is also sensitive to Augmentin. No other significant events overnight, blood work is all within normal limits. Objective - Vital Signs Vital signs: Vital Signs Temp 97 F L 11/26/16 07:00 Pulse 70 11/26/16 07:41 Resp 16 11/26/16 07:29 BP 92/52 11/26/16 07:00 Pulse Ox 94 L 11/26/16 07:29 Intake & Output 11/25/16 11/26/16 11/26/16 18:59 06:59 18:59 Intake Total 1370 590 Output Total 1200 Balance 170 590 Intake: IV 550 Sodium Chloride 0.9% 1, 550 000 ml @ 50 mls/hr IV . Q20H MARICARMEN Rx#:[id number] Intake, IV Titration 100 Amount Sodium Chloride 0.9% 1, 50 000 ml @ 50 mls/hr IV . Q20H MARICARMEN Rx#:[id number] cefTRIAXone 1,000 mg In 50 Sodium Chloride 0.9% 50 ml @ 100 mls/hr IVPB Q24HR MARICARMEN Rx#:[id number] Oral 720 590 Output: Urine 1200 Other: Voiding Method Bedside Commode Bedside Commode # Voids 4 - Exam The patient appeared well nourished and normally developed. Vital signs as documented. Head exam is unremarkable. No scleral icterus or corneal arcus noted. Neck is without jugular venous distension, thyromegaly, or carotid bruits. Carotid upstrokes are brisk bilaterally. Lungs are clear to auscultation and percussion. Cardiac exam reveals the PMI to be normally sized and situated. Rhythm is regular. First and second heart sounds normal. No murmurs, rubs or gallops. Abdominal exam reveals normal bowel sounds, no masses , no organomegaly and no aortic enlargement. Extremities are nonedematous and both femoral and pedal pulses are normal. - Labs CBC & Chem 7: 11/25/16 04:19 11/25/16 04:19 Labs: Microbiology - Last 24 Hours (Table) 11/23/16 18:30 Blood Culture - Preliminary Blood No Growth after 48 hours 11/23/16 16:56 Blood Culture - Preliminary Blood No Growth after 48 hours Assessment and Plan Plan: Assessment 1 generalized weakness with hypotension and dehydration and possibly a gram- negative urine checked infection with E. coli. The patient was resuscitated with IV fluids. The patient was placed on IV Rocephin. Hemodynamically stable and currently off vasopressors. On 11/26/2016, the patient is back to her baseline. Hemodynamically stable. On no pressors. No signs of septicemia. She has capsula pneumoniae her urine and she is on IV Rocephin and she'll be transitioned to oral antibiotics. Blood cultures of been negative for now. She is afebrile. White cell count is not elevated. 2 COPD with hospitalizations approximately 6 months ago for a right lower lobe pulmonary infiltrates/pneumonia 3 preserved LV function with an ejection fraction of 60-65% long with mild aortic stenosis a mild mitral regurgitation 4 coronary artery disease with previous myocardial infarction 5 CVA/TIA, history of 6 hyperlipidemia 7 hypertension 8 hypothyroidism 9 fibromyalgia 10 previous bouts of urine checked infection 11 previous bouts of nonsustained ventricular tachycardia followed up by cardiology 12 possible Domenica syndrome related to vancomycin 13 Anxiety disorder Plan Transition this patient to oral Augmentin. Cut down the IV fluids to KVO. Ablate in the hallway. Possible discharge per medicine. No active pulmonary or critical care issue at this point and we'll sign off the case.
[2016-11-26 14:28] VITALS: BP 104/55; PULSE 99; RESP 18; TEMP 97.8
[2016-11-26 14:39] LABS: ALT 85 U/L (9-52); AST 22 U/L (14-36); Alkaline Phosphatase 90 U/L (38-126); Anion Gap 10 mmol/L; Blood Urea Nitrogen 14 mg/dL (7-17); Calcium 8.6 mg/dL (8.4-10.2); Carbon Dioxide 25 mmol/L (22-30); Chloride 110 mmol/L (98-107); Glucose 121 mg/dL (74-99); Non-African American GFR(MDRD) >60 (>60 ml/min/1.73 sqM); Potassium 3.5 mmol/L (3.5-5.1); Sodium 145 mmol/L (137-145); Total Bilirubin 0.5 mg/dL (0.2-1.3); Total Protein 5.4 g/dL (6.3-8.2)
[2016-11-26 14:49] LABS: Basophils % (A) 1 %; CH 30.8; CHCM 32.3; Eosinophils % (A) 1 %; HCT 37.9 % (34.0-46.0); HGB 12.4 gm/dL (11.4-16.0); Luc # (Auto) 0.04; Luc % (Auto) 1; Lymphocytes # (A) 1.3 k/uL (1.0-4.8); Lymphocytes % (A) 23 %; MCH 31.4 pg (25.0-35.0); MCHC 32.7 g/dL (31.0-37.0); MCV 96.1 fL (80.0-100.0); Mean Platelet Volume 8.3; Monocytes # (A) 0.4 k/uL (0-1.0); Monocytes % (A) 7 %; Neutrophils # (A) 3.9 k/uL (1.3-7.7); Neutrophils % (A) 69 %; RBC 3.95 m/uL (3.80-5.40); RDW 14.1 % (11.5-15.5); WBC 5.7 k/uL (3.8-10.6); WBC (Perox) 6.24
--- NOTE | 2016-11-28 07:53 | DS ---
DATE OF ADMISSION: 11/22/2016 DATE OF DISCHARGE: 11/26/2016 FINAL DIAGNOSES: 1. Acute urinary tract infection with sepsis from Klebsiella pneumoniae, present on admission causing sepsis. 2. Chronic obstructive pulmonary disease. 3. Coronary artery disease with prior history of myocardial infarction. 4. Chronic congestive heart failure from diastolic dysfunction, ejection 50% secondary to coronary artery disease. 5. Hyperlipidemia. 6. Fibromyalgia. 7. Essential hypertension. 8. Restless leg syndrome. 9. Hypothyroidism. HOSPITAL COURSE: This patient presented with UTI with sepsis from above organism, doing much better at the time of discharge. The patient is felt to be over replaced with Synthroid as dose was cut back. Day of discharge, care was discussed with the patient. On exam, lungs are clear. CARDIOVASCULAR: First and second sounds normal. Patient up and about. DC MEDICATIONS: 1. Lyrica 150 mg p.o. t.i.d. 2. Aggrenox 1 capsule p.o. b.i.d. 3. Zocor 20 mg q.h.s. 4. [place] 10 one tablet q.4 p.r.n. 5. Naproxen 500 mg p.o. b.i.d. p.r.n. 6. Vesicare 10 mg p.o. daily. 7. Lopressor 12.5 p.o. q.h.s. 8. Keflex 250 mg p.o. q.8, 15 capsules. 9. Synthroid 112 mcg p.o. daily. 10. Protonix 40 mg with breakfast. 11. Requip 3 mg p.o. t.i.d. Follow up with Dr. Ulrich 12/03/2016. On exam, lungs are clear. CARDIOVASCULAR: First and second sounds are normal.
== END 2016-11-26 15:22 | disposition home health service (06) | DRG 871 ==
LOC: EC 14:05 → 6SEL 17:13 → 6ICU 11-23 13:50 → 5MS5E 11-25 18:05
PROVIDERS: ADMIT Hospitalist; ATTEND Hospitalist
DX: A41.59 Other Gram-negative sepsis (principal); R65.21 Severe sepsis with septic shock; N39.0 Urinary tract infection, site not specified; J98.11 Atelectasis; I50.32 Chronic diastolic (congestive) heart failure; D69.6 Thrombocytopenia, unspecified; I27.2 Other secondary pulmonary hypertension; I11.0 Hypertensive heart disease with heart failure; J44.9 Chronic obstructive pulmonary disease, unspecified; E86.0 Dehydration; E78.5 Hyperlipidemia, unspecified; E89.0 Postprocedural hypothyroidism; F32.9 Major depressive disorder, single episode, unspecified; F40.240 Claustrophobia; F41.9 Anxiety disorder, unspecified; G25.81 Restless legs syndrome; G89.29 Other chronic pain; I08.0 Rheumatic disorders of both mitral and aortic valves; I25.10 Atherosclerotic heart disease of native coronary artery without angina pectoris; I25.2 Old myocardial infarction; M19.90 Unspecified osteoarthritis, unspecified site; M79.7 Fibromyalgia; K44.9 Diaphragmatic hernia without obstruction or gangrene; M54.9 Dorsalgia, unspecified; R79.89 Other specified abnormal findings of blood chemistry; Z87.891 Personal history of nicotine dependence; Z96.611 Presence of right artificial shoulder joint; Z96.651 Presence of right artificial knee joint; Z79.899 Other long term (current) drug therapy; Z88.1 Allergy status to other antibiotic agents; Z88.5 Allergy status to narcotic agent; Z88.2 Allergy status to sulfonamides; Z82.49 Family history of ischemic heart disease and other diseases of the circulatory system
CPT/HCPCS: 36415; 71010; 71020; 80048; 80053; 80306; 81001; 82533; 82550; 82553; 83605; 83735; 83880; 84100; 84439; 84443; 84484; 85025; 85610; 85730; 87040; 87077; 87086; 87186; 93005; 93306; 94640; 96361; 96374; 99285

== ENCOUNTER 2016-12-19 11:07 | Observation (INO) | payer MEDICARE, BC ==
[2016-12-19] MEDS ORDERED: ONDANSETRON 4 MG/2 ML VIAL IVP STA ×3 (11:23→15:56)
[2016-12-19] MEDS ORDERED: SODIUM CHLORIDE 0.9% 500 ML IV STA ×2 (11:57→15:56)
[2016-12-19] MEDS ORDERED: MAG HYDROX/AL HYDROX/SIMETH 30 ML, HYOSCYAMINE ELIXIR 10 ML, CIMETIDINE HCL 300 MG, LID... PO STA ×4 (11:58)
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
[2016-12-19 12:05] LABS: Basophils % (A) 0 %; CH 31.5; CHCM 33.6; Eosinophils # (A) 0.1 k/uL (0-0.7); Eosinophils % (A) 1 %; HCT 50.3 % (34.0-46.0); HDW 2.61; Luc # (Auto) 0.09; Luc % (Auto) 2; Lymphocytes # (A) 0.9 k/uL (1.0-4.8); Lymphocytes % (A) 14 %; MCH 30.8 pg (25.0-35.0); MCHC 32.7 g/dL (31.0-37.0); MCV 94.2 fL (80.0-100.0); Mean Platelet Volume 7.5; Monocytes # (A) 0.3 k/uL (0-1.0); Monocytes % (A) 4 %; Neutrophils # (A) 5.1 k/uL (1.3-7.7); Neutrophils % (A) 79 %; RBC 5.34 m/uL (3.80-5.40); RDW 14.5 % (11.5-15.5); WBC 6.5 k/uL (3.8-10.6); WBC (Perox) 6.83
[2016-12-19 12:21] LABS: ALT 38 U/L (9-52); AST 29 U/L (14-36); Alkaline Phosphatase 89 U/L (38-126); Amylase 38 U/L (30-110); Anion Gap 15 mmol/L; Blood Urea Nitrogen 16 mg/dL (7-17); Calcium 9.4 mg/dL (8.4-10.2); Carbon Dioxide 25 mmol/L (22-30); Chloride 104 mmol/L (98-107); Glucose 96 mg/dL (74-99); Non-African American GFR(MDRD) >60 (>60 ml/min/1.73 sqM); Potassium 4.3 mmol/L (3.5-5.1); Sodium 144 mmol/L (137-145); Total Bilirubin 1.9 mg/dL (0.2-1.3); Total Protein 7.3 g/dL (6.3-8.2)
[2016-12-19 12:24] LABS: Ammonia <9 umol/L (<30)
[2016-12-19 12:26] LABS: HGB 16.4 gm/dL (11.4-16.0)
--- NOTE | 2016-12-19 12:46 | CT ---
EXAMINATION TYPE: CT brain wo con DATE OF EXAM: 12/19/2016 12:29 PM COMPARISON: Prior head CT 2013 2011 HISTORY: Patient complains of increased right side facial droop and right arm weakness. Patient has a history of prior stroke. CT DLP: 979.7 mGycm Automated exposure control for dose reduction was used. FINDINGS: There is no acute intracranial hemorrhage, mass effect, or midline shift identified. The ventricles and sulci are within normal limits in size. Cerebral vascular calcifications are present. There is c ortical atrophy. White matter demyelination in the periventricular locations is again seen. The globe s are intact and the visualized sinuses are remarkable for inflammatory change in the sphenoid sinus. IMPRESSION: No acute intracranial hemorrhage, mass effect, or midline shift is seen. Age-related atrophy and prob able chronic small vessel ischemia. Mild sinus disease.
[2016-12-19] MEDS ORDERED: MORPHINE SULFATE 4 MG/ML SYRINGE IV STA (13:12)
[2016-12-19 13:33] LABS: Appearance,Urine Cloudy (Clear); Bilirubin,Urine 1+ (Negative); Glucose,Urine (UA) Negative (Negative); Ketones,Urine 3+ (Negative); Leukocyte Esterase,Urine Negative (Negative); Mucus,Urine Many /hpf; Nitrite,Urine Negative (Negative); PH, Urine 5.5 (5.0-8.0); Particle Count 14556; Protein,Urine 1+ (Negative); Specific Gravity,Urine 1.028 (1.001-1.035); UA Billing (MACRO vs. MICRO) MICRO
--- NOTE | 2016-12-19 16:05 | US ---
EXAMINATION TYPE: US abdomen limited DATE OF EXAM: 12/19/2016 2:46 PM COMPARISON: Ultrasound kidneys 09 Apr 2016, CT abdomen pelvis second January 2016 CLINICAL HISTORY: Pain, RUQ. RUQ pain and N/V x 5 days, history of cholecystectomy EXAM MEASUREMENTS: Liver Length: 13.8 cm Gallbladder Wall: Surgically absent CBD: 0.7 cm Right Kidney: 9.3 x 5.3 x 5.1 cm TECHNOLOGIST IMPRESSION: Pancreas: Obscured by bowel gas Liver: heterogeneous echotexure with no definite lesions seen at this time, scanned intercostally, l imited by rib shadowing Gallbladder: Surgically absent Evidence for sonographic Orosco's sign: yes CBD: visualized portions wnl, limited by overlying bowel gas Right Kidney: 1.3cm hypoechoic area lateral inferior pole, limited by overlying bowel gas consistent with cyst as noted on previous exam, there is cortical thinning. Common bile duct thought to be within normal limits for patient's age and postcholecystectomy change. IMPRESSION: Limited exam. No significant abnormality is evident to account for patient's symptoms.
[2016-12-19] MEDS ORDERED: SODIUM CHLORIDE 0.9% 1,000 ML IV ONE (17:20)
--- NOTE | 2016-12-19 18:02 | CT ---
EXAMINATION TYPE: CT abdomen pelvis wo con DATE OF EXAM: 12/19/2016 5:21 PM COMPARISON: NONE HISTORY: Right upper Quadrant pain with vomiting for [address] DLP: 499.8 mGycm Automated exposure control for dose reduction was used. TECHNIQUE: Helical acquisition of images was performed from the lung bases through the pelvis. FINDINGS: LUNG BASES: There is a small morganii hernia with calcified right pleural plaques. Additionally there is mild bronchiectasis of the posterior basilar segment of the right lower lobe. Subtle interlobular septal thickening is seen, which most commonly relates to fluid overload. Right basilar atelectasis and left parenchymal scarring are noted. LIVER/GB: The liver is of normal contour with no focal contour deforming masses. There is no evidence of hepatic steatosis. Gallbladder is surgically absent and there is postcholecystectomy dilation of the common bile duct. PANCREAS: Single calcification is seen at the uncinate process. There is mild pancreatic atrophy note d. No pancreatic ductal dilatation. Other punctate calcifications of the ventral pancreatic body are seen on image 16. SPLEEN: No significant abnormality is seen. ADRENALS: Low-density 2.0 cm right adrenal gland lesion is compatible with Hounsfield units of an adr enal adenoma, lipid rich and benign. Similar appearing benign left adrenal adenoma measures 1.8 cm. T his emanates from the lateral limb. KIDNEYS: Multiple bilateral simple renal cyst are appreciated the largest emanating from the left mid pole. Nonobstructing punctate right lower pole renal calculi are present. In addition there is a sing le nonobstructing left lower pole renal calculus.. RETROPERITONEAL ADENOPATHY: None visualized REPRODUCTIVE ORGANS: No significant abnormality is seen URINARY BLADDER: No significant abnormality is seen. PELVIC ADENOPATHY: None visualized. OSSEOUS STRUCTURES: No significant abnormality is seen. BOWEL: There is a moderate hiatal hernia with evidence of Gogo fundoplication and diaphragmatic hi atus is patulous containing obtaining mesenteric fat. Additionally there is a thickened loop of bowel that is difficult to determine if it relates to the terminal ileum or dilated appendix. This is diff icult to determine as multiple loops of small bowel are similar in caliber and course opposed to one another. No right lower quadrant fat stranding changes are appreciated. OTHER: IMPRESSION: 1. THICKENING OF A SINGLE LOOP OF BOWEL NEAR THE TERMINAL ILEUM. IT IS DIFFICULT TO DETERMINE WHETHER THIS RELATES TO TERMINAL ILEITIS OR EARLY APPENDICITIS MULTIPLE SIMILAR CALIBER BOWEL LOOPS ARE I NTERPOSED. NO RIGHT LOWER QUADRANT FAT STRANDING CHANGES, FOCAL FLUID COLLECTION, PHLEGMONOUS COLLECT ION, OR FREE AIR IS IDENTIFIED AT THIS POINT. REPEAT IMAGING WITH ORAL CONTRAST COULD BE CONSIDERED I F THERE IS NO IMPROVEMENT IN PAIN. 2. MULTIPLE BILATERAL NONOBSTRUCTING RENAL CALCULI, SIMPLE RENAL CYSTS, SMALL HIATAL HERNIA, AND BILA TERAL BENIGN ADRENAL ADENOMAS.
[2016-12-19] MEDS: METOCLOPRAMIDE 5 MG/ML 2 ML VIAL IVP PRN (20:11)
[2016-12-19] MEDS: KETOROLAC 30 MG/ML 1 ML VIAL IVP PRN (20:11)
[2016-12-19] MEDS ORDERED: ATORVASTATIN 10 MG TAB PO SCH (21:00)
[2016-12-19] MEDS: PREGABALIN 75 MG CAP PO SCH (21:20)
[2016-12-19] MEDS: DIPYRIDAMOLE-ASPIRIN 200-25 MG 1 EACH CPMP.12HR PO SCH (21:21)
[2016-12-19] MEDS: METOPROLOL TARTRATE 12.5 MG TAB PO SCH (21:21)
[2016-12-19] MEDS: ATORVASTATIN 10 MG TAB PO SCH (21:21)
[2016-12-19] MEDS: ONDANSETRON 4 MG/2 ML VIAL IVP PRN (22:01)
[2016-12-20] MEDS: LORazepam 2 MG/ML SYRINGE IV PRN ×2 (00:07→22:41)
[2016-12-20] MEDS: KETOROLAC 30 MG/ML 1 ML VIAL IVP PRN ×3 (06:27→21:44)
[2016-12-20] MEDS: METOCLOPRAMIDE 5 MG/ML 2 ML VIAL IVP PRN ×2 (06:28→18:45)
[2016-12-20] MEDS: LEVOTHYROXINE 137 MCG TAB PO SCH (06:28)
[2016-12-20] MEDS ORDERED: PANTOPRAZOLE 40 MG TABLET PO SCH (07:30)
[2016-12-20] MEDS: DIPYRIDAMOLE-ASPIRIN 200-25 MG 1 EACH CPMP.12HR PO SCH ×2 (07:37→20:39)
[2016-12-20] MEDS: OXYBUTYNIN XL 5 MG TAB.ER.24 PO SCH (07:37)
[2016-12-20] MEDS: PREGABALIN 75 MG CAP PO SCH ×3 (07:38→21:44)
[2016-12-20] MEDS ORDERED: METOPROLOL SUCCINATE (ER) 25 MG TAB.ER.24H PO SCH (09:00)
[2016-12-20] MEDS ORDERED: SCOPOLAMINE 1.5MG/72HR PATCH TRANSDERM STA (11:56)
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
[2016-12-20] MEDS: ENOXAPARIN 40 MG/0.4 ML SYRINGE SQ SCH (12:17)
[2016-12-20] MEDS: SODIUM CHLORIDE 0.9% 1,000 ML IV SCH ×2 (12:18→22:15)
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
[2016-12-20] MEDS: ONDANSETRON 4 MG/2 ML VIAL IVP PRN ×2 (15:07→20:58)
[2016-12-20] MEDS: ATORVASTATIN 10 MG TAB PO SCH (20:39)
[2016-12-20] MEDS: PANTOPRAZOLE 40 MG/10 ML VIAL IVP SCH (20:59)
[2016-12-20] MEDS: METOPROLOL TARTRATE 12.5 MG TAB PO SCH (22:09)
[2016-12-21] MEDS: LEVOTHYROXINE 137 MCG TAB PO SCH (06:01)
[2016-12-21] MEDS: KETOROLAC 30 MG/ML 1 ML VIAL IVP PRN ×3 (06:29→19:10)
[2016-12-21] MEDS: SODIUM CHLORIDE 0.9% 1,000 ML IV SCH ×2 (08:23→17:30)
[2016-12-21] MEDS: OXYBUTYNIN XL 5 MG TAB.ER.24 PO SCH (08:23)
[2016-12-21] MEDS: ENOXAPARIN 40 MG/0.4 ML SYRINGE SQ SCH (08:23)
[2016-12-21] MEDS: DIPYRIDAMOLE-ASPIRIN 200-25 MG 1 EACH CPMP.12HR PO SCH ×2 (08:23→20:50)
[2016-12-21] MEDS: ONDANSETRON 4 MG/2 ML VIAL IVP PRN ×2 (08:24→19:45)
[2016-12-21] MEDS: PREGABALIN 75 MG CAP PO SCH ×3 (08:24→20:51)
[2016-12-21] MEDS: PANTOPRAZOLE 40 MG/10 ML VIAL IVP SCH ×2 (08:24→20:50)
[2016-12-21 08:41] LABS: Basophils % (A) 1 %; CH 31.2; CHCM 32.2; Eosinophils # (A) 0.1 k/uL (0-0.7); Eosinophils % (A) 1 %; HCT 45.7 % (34.0-46.0); HDW 2.65; HGB 14.5 gm/dL (11.4-16.0); Luc # (Auto) 0.07; Luc % (Auto) 1; Lymphocytes # (A) 1.2 k/uL (1.0-4.8); Lymphocytes % (A) 22 %; MCH 30.8 pg (25.0-35.0); MCHC 31.7 g/dL (31.0-37.0); MCV 97.3 fL (80.0-100.0); Mean Platelet Volume 8.4; Monocytes # (A) 0.4 k/uL (0-1.0); Monocytes % (A) 7 %; Neutrophils # (A) 3.7 k/uL (1.3-7.7); Neutrophils % (A) 68 %; RDW 14.6 % (11.5-15.5); WBC 5.4 k/uL (3.8-10.6)
[2016-12-21 09:00] LABS: ALT 47 U/L (9-52); AST 29 U/L (14-36); Alkaline Phosphatase 82 U/L (38-126); Anion Gap 11 mmol/L; Blood Urea Nitrogen 15 mg/dL (7-17); Calcium 8.8 mg/dL (8.4-10.2); Carbon Dioxide 24 mmol/L (22-30); Chloride 109 mmol/L (98-107); Glucose 96 mg/dL (74-99); Non-African American GFR(MDRD) >60 (>60 ml/min/1.73 sqM); Potassium 3.8 mmol/L (3.5-5.1); Sodium 144 mmol/L (137-145); Total Bilirubin 2.5 mg/dL (0.2-1.3); Total Protein 6.3 g/dL (6.3-8.2)
--- NOTE | 2016-12-21 14:03 | P.PN ---
Subjective Principal diagnosis: Intractable nausea and vomiting Patient is a 71 to female with intractable nausea and vomiting. She continues to have pain in the epigastrium and right upper quadrant. He has been using a scopolamine patch for that. His no fever no chills. She still having difficulty keeping food down. Objective - Vital Signs Vital signs: Vital Signs Temp 96.9 F L 12/21/16 07:00 Pulse 67 12/21/16 07:00 Resp 16 12/21/16 07:00 BP 92/57 12/21/16 07:00 Pulse Ox 96 12/21/16 07:00 Intake & Output 12/20/16 12/21/16 12/21/16 18:59 06:59 18:59 Intake Total 1100 Output Total 100 Balance 1000 Intake: Intake, IV Titration 1100 Amount Sodium Chloride 0.9% 1, 1100 000 ml @ 100 mls/hr IV . Q10H MARICARMEN Rx#:[id number] Output: Urine 100 Other: Voiding Method Bedside Commode Bedside Commode # Voids 2 1 # Bowel Movements 1 - Constitutional General appearance: Present: morbidly obese - Gastrointestinal Gastrointestinal Comment(s): Tenderness is related to the epigastrium. General gastrointestinal: Present: soft, tenderness. Absent: distended, hepatomegaly, organomegaly, rigid, umbilical hernia - Labs CBC & Chem 7: 12/21/16 08:14 12/21/16 08:14 Labs: Abnormal Lab Results - Last 24 Hours (Table) 12/21/16 12/21/16 Range/Units 08:14 08:14 Plt Count 123 L (150-450) k/uL Chloride 109 H (98-107) mmol/L Total Bilirubin 2.5 H (0.2-1.3) mg/dL Microbiology - Last 24 Hours (Table) 12/20/16 20:00 Urine Culture - Preliminary Urine,Voided Assessment and Plan (1) Intractable vomiting Status: Acute Plan: Patient continues to have intractable nausea and vomiting. At this time from the clinical exam her clinical course does not look like there is anything surgical going on. We'll continue to follow the patient with you. Agree with scopolamine patch and Zofran.
[2016-12-21] MEDS: ATORVASTATIN 10 MG TAB PO SCH (20:51)
[2016-12-21] MEDS: LORazepam 2 MG/ML SYRINGE IV PRN (20:51)
[2016-12-21] MEDS: METOPROLOL TARTRATE 12.5 MG TAB PO SCH (22:14)
[2016-12-22] MEDS: KETOROLAC 30 MG/ML 1 ML VIAL IVP PRN ×3 (03:46→22:40)
[2016-12-22] MEDS: ONDANSETRON 4 MG/2 ML VIAL IVP PRN ×3 (04:43→22:36)
[2016-12-22] MEDS: SODIUM CHLORIDE 0.9% 1,000 ML IV SCH ×2 (05:24→14:37)
[2016-12-22] MEDS: LEVOTHYROXINE 137 MCG TAB PO SCH (05:40)
[2016-12-22] MEDS: ENOXAPARIN 40 MG/0.4 ML SYRINGE SQ SCH (08:13)
[2016-12-22] MEDS: OXYBUTYNIN XL 5 MG TAB.ER.24 PO SCH (08:14)
[2016-12-22] MEDS: PREGABALIN 75 MG CAP PO SCH ×3 (08:14→22:15)
[2016-12-22] MEDS: DIPYRIDAMOLE-ASPIRIN 200-25 MG 1 EACH CPMP.12HR PO SCH ×2 (08:14→22:15)
[2016-12-22] MEDS: PANTOPRAZOLE 40 MG/10 ML VIAL IVP SCH ×2 (08:14→23:44)
[2016-12-22 08:25] LABS: Basophils % (A) 1 %; CH 30.7; CHCM 30.6; Eosinophils # (A) 0.1 k/uL (0-0.7); Eosinophils % (A) 2 %; HCT 43.1 % (34.0-46.0); HGB 13.6 gm/dL (11.4-16.0); Hypochromasia Moderate; Luc # (Auto) 0.14; Luc % (Auto) 4; Lymphocytes # (A) 1.2 k/uL (1.0-4.8); Lymphocytes % (A) 31 %; MCH 31.9 pg (25.0-35.0); MCHC 31.6 g/dL (31.0-37.0); Macrocytosis Slight; Mean Platelet Volume 8.3; Monocytes # (A) 0.4 k/uL (0-1.0); Monocytes % (A) 10 %; Neutrophils # (A) 2.1 k/uL (1.3-7.7); Neutrophils % (A) 54 %; RBC 4.27 m/uL (3.80-5.40); RDW 14.6 % (11.5-15.5); WBC 3.9 k/uL (3.8-10.6); WBC (Perox) 3.83
[2016-12-22 09:07] LABS: Polychromasia Present
--- NOTE | 2016-12-22 11:15 | PN ---
DATE OF SERVICE: 12/21/2016 PRESENTING COMPLAINT: Abdominal pain. INTERVAL HISTORY: This patient was seen by me this afternoon. Presented with right lower quadrant pain, remains afebrile. No white count. Not felt to be surgical by Dr. Hartmann. No specific diagnosis, but GI at this point. My impression still remains of localized terminal ileitis, which could be viral. Patient still having some pain but did tolerate some liquids. Has been up in the chair. Review of systems done for constitutional, cardiovascular, GI, pulmonary; relevant findings as above. Current medications are reviewed that include IV fluids. On examination, temperature 96.3, pulse 57, respiration 16, blood pressure 99/62, pulse ox 97% on room air. GENERAL APPEARANCE: Lying in bed, tired -appearing. EYES: Pupils equal. Conjunctivae normal. NECK: JVD not raised. RESPIRATORY: Normal. LUNGS: Diminished breath sounds. CARDIOVASCULAR: First and second sounds normal. No edema. ABDOMEN: Right lower quadrant tenderness. No guarding or rigidity. Soft. PSYCHIATRY: Alert and oriented. Mood and affect slightly anxious appearing. INVESTIGATIONS: White count 5.4, hemoglobin 14.5. No blood in the urine. ASSESSMENT: 1. Possible terminal ileitis could be viral, less likely appendicitis given no fever, no white count now for 4 days presentation. 2. Chronic obstructive pulmonary disease in an ex-smoker. 3. Coronary artery disease with prior history of myocardial infarction. 4. Chronic congestive heart failure from diastolic dysfunction, ejection fraction 50% secondary to coronary artery disease. 5. Hyperlipidemia. 6. Fibromyalgia, chronic. 7. Essential hypertension. 8. Restless leg syndrome. 9. Hypothyroidism. PLAN: Care was discussed with patient. There is no fever, no white count. Abdominal examination did show some localized tenderness, but no guarding or rigidity. Will like to try the patient on antibiotics and see how she does. Diet will be advanced to full liquids. Care was discussed with the patient.
[2016-12-22 14:39] LABS: Appearance,Urine Clear (Clear); Bacteria,Urine Occasional /hpf; Bilirubin,Urine Negative (Negative); Glucose,Urine (UA) Negative (Negative); Ketones,Urine Negative (Negative); Leukocyte Esterase,Urine Moderate (Negative); Mucus,Urine Rare /hpf; Nitrite,Urine Negative (Negative); Particle Count 2619; Protein,Urine Negative (Negative); RBC,Urine 6 /hpf (0-5); Specific Gravity,Urine 1.009 (1.001-1.035); Squamous Epithelial Cell,Urine 5 /hpf (0-4); UA Billing (MACRO vs. MICRO) MICRO; Urobilinogen,Urine <2.0 mg/dL (<2.0); WBC,Urine 9 /hpf (0-5)
[2016-12-22] MEDS: ATORVASTATIN 10 MG TAB PO SCH (22:15)
[2016-12-22] MEDS: METOPROLOL TARTRATE 12.5 MG TAB PO SCH (22:15)
[2016-12-23] MEDS: SODIUM CHLORIDE 0.9% 1,000 ML IV SCH ×3 (02:14→21:16)
[2016-12-23] MEDS: ONDANSETRON 4 MG/2 ML VIAL IVP PRN ×3 (05:57→16:55)
[2016-12-23] MEDS: KETOROLAC 30 MG/ML 1 ML VIAL IVP PRN ×2 (06:22→13:34)
[2016-12-23] MEDS: LEVOTHYROXINE 137 MCG TAB PO SCH (07:02)
--- NOTE | 2016-12-23 07:46 | PN ---
DATE OF SERVICE: 12/22/2016 PRESENTING COMPLAINT: Abdominal pain. INTERVAL HISTORY: This is a patient with right lower quadrant pain. She states she has been throwing up but according to nursing only brings up spit. The patient able to keep full liquids down. The nurse did notice some blood in the stool. Was not sure if the urine is involved. Otherwise looks rather comfortable in bed. Review of systems done for constitutional, cardiovascular, GI, pulmonary; relevant findings as above. Current medications are reviewed and include IV ceftriaxone. On examination, temperature 97, pulse 52, respirations 16, blood pressure 88/52, pulse ox 96% on room air. GENERAL APPEARANCE: Lying in bed, comfortable. EYES: Pupils equal. Conjunctivae normal. NECK: JVD not raised. Mass not palpable. RESPIRATORY: Effort normal. Lungs are clear. CARDIOVASCULAR: First and second sounds normal. No edema. ABDOMEN: Right lower quadrant tenderness. No guarding or rigidity. PSYCHIATRY: Alert and oriented x3. Mood and affect normal. INVESTIGATIONS: White count 3.9. The patient UA from 3 days ago was benign. ASSESSMENT: 1. Possible terminal ileitis, could be viral, less likely, ( ). No fever, no white count. Some blood is noted in the stool today. 2. Chronic obstructive pulmonary disease in an ex-smoker. 3. Coronary artery disease with history of prior history of myocardial infarction. 4. Chronic congestive heart failure from diastolic dysfunction, ejection fraction 50% secondary to coronary artery disease. 5. Hyperlipidemia. 6. Fibromyalgia, chronic. 7. Essential hypertension. 8. Restless leg syndrome. 9. Hypothyroidism. PLAN: We will just repeat UA to make sure there is no blood ( ) in the urine, most likely was hemorrhoidal bleeding. We will await Dr. Arevalo input. We will try patient on soft bland diet. Follow.
[2016-12-23 08:07] LABS: Basophils % (A) 1 %; CH 30.9; CHCM 31.4; Eosinophils # (A) 0.1 k/uL (0-0.7); Eosinophils % (A) 2 %; HCT 37.4 % (34.0-46.0); HDW 2.62; Hypochromasia Slight; Luc # (Auto) 0.08; Luc % (Auto) 3; Lymphocytes % (A) 29 %; MCH 31.7 pg (25.0-35.0); MCHC 32.1 g/dL (31.0-37.0); MCV 98.9 fL (80.0-100.0); Macrocytosis Slight; Monocytes # (A) 0.3 k/uL (0-1.0); Monocytes % (A) 8 %; Neutrophils # (A) 1.9 k/uL (1.3-7.7); Neutrophils % (A) 57 %; RBC 3.78 m/uL (3.80-5.40); RDW 14.8 % (11.5-15.5); WBC 3.3 k/uL (3.8-10.6); WBC (Perox) 3.57
[2016-12-23] MEDS: METOCLOPRAMIDE 5 MG/ML 2 ML VIAL IVP PRN ×3 (08:12→21:06)
[2016-12-23] MEDS: PANTOPRAZOLE 40 MG/10 ML VIAL IVP SCH ×2 (08:13→21:06)
[2016-12-23] MEDS: ENOXAPARIN 40 MG/0.4 ML SYRINGE SQ SCH (08:13)
[2016-12-23] MEDS: DIPYRIDAMOLE-ASPIRIN 200-25 MG 1 EACH CPMP.12HR PO SCH ×2 (10:45→21:44)
[2016-12-23] MEDS: PREGABALIN 75 MG CAP PO SCH ×3 (10:45→22:01)
[2016-12-23] MEDS: OXYBUTYNIN XL 5 MG TAB.ER.24 PO SCH (10:46)
--- NOTE | 2016-12-23 11:02 | P.PN ---
Progress Note - Text 71-year-old female was evaluated by surgical service at the request of the attending for intractable nausea vomiting diffuse tenderness to the right lower quadrant onset 1 week prior. The does not look to be any thing surgically going on and at this time from a clinical perspective will sign off with no further surgical recommendations. Will re-eval as indicated
[2016-12-23 12:12] LABS: Anion Gap 10 mmol/L; Blood Urea Nitrogen 11 mg/dL (7-17); Calcium 8.2 mg/dL (8.4-10.2); Carbon Dioxide 20 mmol/L (22-30); Chloride 113 mmol/L (98-107); Glucose 82 mg/dL (74-99); Non-African American GFR(MDRD) >60 (>60 ml/min/1.73 sqM); Potassium 3.8 mmol/L (3.5-5.1); Sodium 143 mmol/L (137-145)
[2016-12-23] MEDS: METOPROLOL TARTRATE 12.5 MG TAB PO SCH (21:06)
[2016-12-23] MEDS: ATORVASTATIN 10 MG TAB PO SCH (21:06)
[2016-12-23] MEDS: HYDROcodone/APAP 5-325MG 1 EACH TAB PO PRN (21:43)
[2016-12-23] MEDS: LORazepam 2 MG/ML SYRINGE IV PRN (22:00)
[2016-12-24] MEDS: HYDROcodone/APAP 5-325MG 1 EACH TAB PO PRN ×3 (03:26→14:12)
[2016-12-24] MEDS: SODIUM CHLORIDE 0.9% 1,000 ML IV SCH ×2 (05:13→17:09)
[2016-12-24] MEDS: LEVOTHYROXINE 137 MCG TAB PO SCH (06:22)
[2016-12-24] MEDS: ONDANSETRON 4 MG/2 ML VIAL IVP PRN ×2 (06:34→13:55)
[2016-12-24 07:49] VITALS: RESP 16; TEMP 98.5
--- NOTE | 2016-12-24 09:09 | PN ---
DATE OF SERVICE: 12/23/2016 INTERVAL HISTORY: Jessica Scanlon is a 71-year-old female with a past medical history of COPD, CAD, congestive heart failure, hyperlipidemia, fibromyalgia, hypertension, hypothyroidism, who came in with right lower quadrant abdominal pain. The patient states that she has been throwing up. As per the nursing staff report she only brings up spit. The patient states she has nausea, but she has been eating her lunch. This afternoon when I went in to see her she looks rather comfortable in bed. REVIEW OF SYSTEMS: CONSTITUTIONAL: Denies having fevers or chills or rigors. RESPIRATORY: No cough. No difficulty breathing. CARDIOVASCULAR: ( ) no abdominal pain. : No dysuria or hematuria. Patient's medications have been reviewed. On examination, patient's vital signs temperature 98, heart rate 75, respiratory rate 19, blood pressure 115/70, saturating at 93% on room air. GENERAL EXAMINATION: Patient is lying in bed, comfortable. EYES: Pupils round and reactive. No pallor. NECK: No JVD. No thyromegaly. CARDIOVASCULAR: S1, S2 heard. No S3. RESPIRATORY: Bilateral breath sounds are positive. ABDOMEN: Mild tenderness in the right upper quadrant of the abdomen. No guarding or rigidity. CENTRAL NERVOUS SYSTEM: Alert, awake, oriented x3. No focal deficits. PSYCHIATRIC: Appropriate mood and affect. LABS: Hemoglobin is 12, platelets 105, sodium 150, potassium 3.8, chloride 113, bicarb 22, BUN 11, creatinine 0.67. ASSESSMENT AND PLAN: 1. Intractable nausea, vomiting. 2. Right upper quadrant abdominal pain, unclear etiology as this has been going on for the past few months but this is not an acute for her. 3. Chronic obstructive pulmonary disease in an ex-smoker. 4. Coronary artery disease with prior history of myocardial infarction. 5. Congestive heart failure, diastolic dysfunction, ejection fraction of 50% secondary to coronary artery disease. 6. Hyperlipidemia. 7. Fibromyalgia. 8. Essential hypertension. 9. Restless leg syndrome. 10. Hypothyroidism. PLAN: The patient is currently on antibiotics in the form of Ceftriaxone. Her nausea and vomiting has improved significantly since when she came in. The abdominal pain that she has that is chronic has been going on since a few months, nothing acute. If the patient continues to improve in terms of symptoms, she can be discharged home tomorrow.
[2016-12-24] MEDS: ENOXAPARIN 40 MG/0.4 ML SYRINGE SQ SCH (09:19)
[2016-12-24] MEDS: PANTOPRAZOLE 40 MG/10 ML VIAL IVP SCH (09:19)
[2016-12-24] MEDS: OXYBUTYNIN XL 5 MG TAB.ER.24 PO SCH (09:20)
[2016-12-24] MEDS: DIPYRIDAMOLE-ASPIRIN 200-25 MG 1 EACH CPMP.12HR PO SCH (09:20)
[2016-12-24] MEDS: PREGABALIN 75 MG CAP PO SCH ×2 (09:20→16:46)
[2016-12-24] MEDS: METOCLOPRAMIDE 5 MG/ML 2 ML VIAL IVP PRN (09:21)
[2016-12-24 15:22] VITALS: BP 111/66; PULSE 87
[2016-12-25] MEDS ORDERED: PANTOPRAZOLE 40 MG TABLET PO SCH (09:00)
--- NOTE | 2016-12-25 22:25 | DS ---
DATE OF ADMISSION: 12/19/2016 DATE OF DISCHARGE: 12/24/2016 HOSPITAL COURSE: Ms. Scanlon is a 71-year-old female with a past medical history of COPD, coronary artery disease, CHF, hyperlipidemia, fibromyalgia, hypertension, restless leg syndrome, hypothyroidism. She came in with the chief complaint of 5 days of nausea, vomiting and not able to keep anything down. Patient did not have any fever. She was also having right upper quadrant abdominal pain. Patient stated that the pain had been chronic and not an acute issue. Patient denied having any diarrhea. At the time of admission the patient did not have any leukocytosis. As she was having acute abdomen, Surgical Services and GI Services were consulted. Patient was kept n.p.o. and given supportive management, after which her nausea and vomiting did resolve. Patient was resumed on her home medications. Patient showed significant improvement in her symptoms. CONSULTATIONS OBTAINED DURING THE HOSPITAL STAY: 1. GI. 2. Surgery. PROCEDURES DONE DURING HOSPITAL STAY: 1. Abdominal ultrasound showing no acute abdominal process. 2. CT scan of the abdomen and pelvis showing multiple non-obstructive renal calculi and some terminal ileitis or early appendicitis, but no focal fluid collection or free air was identified. Patient did improve with conservative management. As per GI Services, the patient is to continue the conservative management, and they did not plan to do an endoscopy. The same with Surgical Services, who signed off. At the time of discharge, patient's vital signs showed temperature 98.5, heart rate 87, respiratory rate 16, blood pressure 111/66. Saturating at 96%. GENERAL EXAMINATION: Patient is alert, awake and oriented x3. No focal deficits LUNGS: Bilateral breath sounds are positive. CARDIOVASCULAR: S1, S2 heard. ABDOMEN: Patient has some abdominal tenderness in the right upper quadrant which is chronic in nature. On examination of the lower abdomen, bowel sounds are positive. PATIENT'S LABS AT THE TIME OF DISCHARGE: White count 3.3, hemoglobin 12, platelets 105. Sodium 143, potassium 3.8, chloride 113, bicarb 20. BUN 11, creatinine 0.67. PATIENT'S DISCHARGE DIAGNOSES: 1. Intractable nausea and vomiting. 2. Right upper quadrant abdominal pain; unclear etiology, which has been going on for months, but no acute issues. CT scan of the abdomen and pelvic showed nonspecific findings. 3. Chronic obstructive pulmonary disease. 4. Smoker. 5. Coronary artery disease with history of myocardial infarction in the past. 6. Congestive heart failure, diastolic dysfunction; ejection fraction 50% secondary to coronary artery disease. 7. Hyperlipidemia. 8. Fibromyalgia. 9. Essential hypertension. 10. Restless leg syndrome. 11. Hypothyroidism. PATIENT'S DISCHARGE MEDICATIONS: 1. Zocor 20 mg p.o. at bedtime. 2. Vesicare 10 mg p.o. daily. 3. Aggrenox 25/200 mg 1 tablet b.i.d. 4. Flaxton 10/325 one tablet q.4 hours p.r.n. for pain. 5. Synthroid 137 mcg p.o. daily. 6. Metoprolol 12.5 mg p.o. at bedtime. 7. Omeprazole 20 mg p.o. daily. 8. Lyrica 150 mg p.o. 3 times a day. 9. Ropinirole 3 mg p.o. 3 times a day. 10. Zofran 8 mg p.o. q.4 to 6 hours p.r.n. for nausea and vomiting. 11. Protonix 40 mg b.i.d. FOLLOWUP: Patient is advised to follow up with her primary care physician, Dr. Ajay Ulrich, in 1 to 2 weeks. Activity as tolerated. Heart-healthy diet. More than 35 minutes spent with the discharge of the patient.
== END 2016-12-24 18:54 | disposition home or self-care (01) ==
LOC: EC 11:07 → 4MS4W 17:20
PROVIDERS: ADMIT Hospitalist; ATTEND Hospitalist
DX: R11.2 Nausea with vomiting, unspecified (principal); R10.11 Right upper quadrant pain; J44.9 Chronic obstructive pulmonary disease, unspecified; F17.200 Nicotine dependence, unspecified, uncomplicated; I25.10 Atherosclerotic heart disease of native coronary artery without angina pectoris; I25.2 Old myocardial infarction; I10 Essential (primary) hypertension; E78.5 Hyperlipidemia, unspecified; E03.9 Hypothyroidism, unspecified; I50.32 Chronic diastolic (congestive) heart failure; M79.7 Fibromyalgia; G25.81 Restless legs syndrome; K21.9 Gastro-esophageal reflux disease without esophagitis; Z79.02 Long term (current) use of antithrombotics/antiplatelets; Z79.82 Long term (current) use of aspirin; Z79.890 Hormone replacement therapy; Z79.899 Other long term (current) drug therapy; Z88.1 Allergy status to other antibiotic agents; Z88.5 Allergy status to narcotic agent
CPT/HCPCS: 36415; 93005; 97161; 80053 ×2; 80048; 82140; 82150; 83605; 83690; 83735; 84484; 85025 ×4; 81001 ×2; 87086; 87077; 87186; 76705; 70450; 74176; 99285; 96375 ×2; 96376 ×2; 96361 ×3; G0378 ×6; J2060 ×3; J2270; J2765 ×4; J2405 ×6; J1650 ×5; J0696 ×3; J1885 ×5; C9113 ×5; 96366; 96372

== ENCOUNTER 2016-12-27 12:05 | Inpatient (IN) | payer MEDICARE, BC ==
[2016-12-27] MEDS ORDERED: IPRATROPIUM-ALBUTEROL 3 ML NEB INHALATION STA (12:45)
[2016-12-27] MEDS ORDERED: NITROGLYCERIN OINT 1 INCH/GM PACKET TOPICAL STA (12:45)
[2016-12-27] MEDS ORDERED: methylPREDNISolone SOD SUCCI 125 MG/2 ML VIAL IV STA (12:45)
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
[2016-12-27] MEDS ORDERED: ONDANSETRON 4 MG/2 ML VIAL IVP STA (13:16)
[2016-12-27 13:22] LABS: Basophils % (A) 0 %; CH 31.6; CHCM 33.1; Eosinophils % (A) 0 %; HCT 36.5 % (34.0-46.0); HDW 2.57; HGB 11.9 gm/dL (11.4-16.0); Luc # (Auto) 0.09; Luc % (Auto) 1; Lymphocytes # (A) 0.5 k/uL (1.0-4.8); Lymphocytes % (A) 7 %; MCH 31.3 pg (25.0-35.0); MCHC 32.7 g/dL (31.0-37.0); MCV 95.8 fL (80.0-100.0); Mean Platelet Volume 8.3; Monocytes # (A) 0.5 k/uL (0-1.0); Monocytes % (A) 7 %; Neutrophils # (A) 5.9 k/uL (1.3-7.7); Neutrophils % (A) 85 %; RBC 3.81 m/uL (3.80-5.40); RDW 15.1 % (11.5-15.5); WBC 6.9 k/uL (3.8-10.6); WBC (Perox) 7.36
[2016-12-27 13:26] LABS: INR 1.1 (<1.1); Partial Thromboplastin Time 25.8 sec (22.0-30.0); Prothrombin Time 11.4 sec (9.0-12.0)
[2016-12-27 13:30] LABS: ALT 32 U/L (9-52); AST 17 U/L (14-36); Alkaline Phosphatase 65 U/L (38-126); Anion Gap 8 mmol/L; Blood Urea Nitrogen 8 mg/dL (7-17); Calcium 8.6 mg/dL (8.4-10.2); Carbon Dioxide 34 mmol/L (22-30); Chloride 101 mmol/L (98-107); Glucose 102 mg/dL (74-99); Magnesium 1.8 mg/dL (1.6-2.3); Non-African American GFR(MDRD) >60 (>60 ml/min/1.73 sqM); Potassium 3.9 mmol/L (3.5-5.1); Sodium 143 mmol/L (137-145); Total Bilirubin 1.2 mg/dL (0.2-1.3)
[2016-12-27 13:38] LABS: Creatine Kinase 47 U/L (30-135)
[2016-12-27 13:50] LABS: Creatine Kinase MB 0.5 ng/mL (0.0-2.4); Troponin I <0.012 ng/mL (0.000-0.034)
[2016-12-27] MEDS ORDERED: MORPHINE SULFATE 4 MG/ML SYRINGE IVP STA (13:54)
--- NOTE | 2016-12-27 14:22 | XR ---
EXAMINATION TYPE: XR chest 2V DATE OF EXAM: 12/27/2016 2:01 PM COMPARISON: NONE TECHNIQUE: 2 views are submitted HISTORY: Difficulty breathing FINDINGS: There are bilateral pleural effusions with cardiomegaly and bibasilar infiltrate. There is a diffuse interstitial pattern. Postsurgical change involving the right shoulder. The heart is enlarged. No pn eumothorax. IMPRESSION: 1. Small bilateral pleural effusions and basilar infiltrate. Underlying COPD and chronic interstitial lung disease noted. Mild venous congestion not excluded.
[2016-12-27] MEDS ORDERED: PIPERACILLIN-TAZOBACTAM 3.375 GM in DEXTROSE/WATER 1 50ML.BAG IVPB STA (14:46)
[2016-12-27] MEDS ORDERED: FUROSEMIDE 10 MG/ML 4 ML VIAL IV STA (14:46)
[2016-12-27] MEDS ORDERED: PNEUMONIA PROTOCOL UTILIZED 1 EACH MISC PO PRN (14:57)
[2016-12-27] MEDS ORDERED: NAPROXEN 250 MG TAB PO PRN (15:00)
[2016-12-27] MEDS: SODIUM CHLORIDE 0.9% 1,000 ML IV SCH (15:15)
[2016-12-27] MEDS ORDERED: NALOXONE 0.4 MG/ML 1 ML VIAL IV PRN (15:19)
[2016-12-27] MEDS ORDERED: FUROSEMIDE 10 MG/ML 4 ML VIAL IV SCH (16:00)
[2016-12-27] MEDS: IPRATROPIUM-ALBUTEROL 3 ML NEB INHALATION SCH ×4 (16:15→19:59)
[2016-12-27] MEDS: HYDROcodone/APAP 10-325MG 1 EACH TAB PO PRN ×2 (16:19→22:36)
[2016-12-27] MEDS: PREGABALIN 50 MG CAP PO SCH ×2 (16:23→21:43)
[2016-12-27] MEDS: PIPERACILLIN-TAZOBACTAM 3.375 GM in DEXTROSE/WATER 1 50ML.BAG IVPB SCH (16:27)
[2016-12-27] MEDS: NITROGLYCERIN OINT 1 INCH/GM PACKET TOPICAL SCH ×2 (18:03→23:36)
[2016-12-27] MEDS: ONDANSETRON 4 MG/2 ML VIAL IVP PRN (18:44)
[2016-12-27] MEDS ORDERED: PANTOPRAZOLE 40 MG/10 ML VIAL IVP SCH (19:00)
--- NOTE | 2016-12-27 19:44 | HP ---
DATE OF ADMISSION: Patient is a very pleasant 71-year-old female who was discharged about 3 days ago. She was treated for nausea and vomiting, and patient at that time was evaluated by Gastroenterology as well. Patient comes in with same nausea, vomiting, mainly complains of shortness of breath, complains of orthopnea. No clear history of paroxysmal nocturnal dyspnea. Patient on the chest x-ray is found to have some bilateral pleural effusions and mild central venous congestion; not impressive, though. Patient had an ejection fraction of 60% to 65% in the past. Patient had elevated BNP of 2200 with 400 BNP during her previous hospitalization. On exam, patient does not have any JVD. No pedal edema. Patient has bibasilar crackles. I did not appreciate any S3, either. Patient was given IV Lasix and had about 2.5 liters of diuresis. The patient has multiple other symptoms. 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 Patient still is on naproxen; may be contributing to her symptoms of nausea. Patient is severely nauseous. Patient improved during her hospitalization, was having nausea, vomiting. Patient continues to have nausea, vomiting now. Apart from that, patient is also complaining of chest pain, about 7/10 severe, in the right side of the chest, non-radiating. Pressure-like sensation, constant, associated with some questionable diaphoresis, associated with shortness of breath as mentioned above. Her chest pain and shortness of breath did not start at the same time. Patient has degenerative cervical spine disease, because of which patient has ( ) she says. Patient's EKG shows normal sinus rhythm without any acute ST-T wave changes. Patient had one set of troponin which is essentially within normal limits. I am consulting Cardiology as well as Gastroenterology. Will obtain an echocardiogram. Patient's previous echocardiogram essentially showed 60% to 65% ejection fraction. Patient has been under a lot of stress as well, which can contribute to takotsubo-like syndrome. REVIEW OF SYSTEMS: GENERAL: Patient was complaining of fever of 102 degrees. Patient denied any generalized body aches. CONSTITUTIONAL: No fever, no malaise, no fatigue. HEENT: No recent visual problems or hearing problems. Denied any sore throat. CARDIOVASCULAR: As described in HPI. PULMONARY: No shortness of breath, no cough, no hemoptysis. GASTROINTESTINAL: As described in HPI. NEUROLOGICAL: No headaches, no weakness, no numbness. HEMATOLOGICAL: Denies any bleeding or petechiae. GENITOURINARY: Denies any burning micturition, frequency, or urgency. MUSCULOSKELETAL/RHEUMATOLOGICAL: Denies any joint pain, swelling, or any muscle pain. ENDOCRINE: Denies any polyuria or polydipsia. The rest of the 14 point review of systems is negative. Home medications include: 1. Simvastatin. 2. Solifenacin. 3. ( ) 4. Aspirin. 5. Hydrocodone/acetaminophen . 6. Pregabalin. 7. Ropinirole. 8. Levothyroxine. 9. Metoprolol. 10. Naproxen. ALLERGIES: BACTRIM, OXYCODONE. PAST MEDICAL HISTORY: 1. Coronary artery disease. 2. COPD. 3. Fibromyalgia. 4. Hyperlipidemia. 5. Hypertension. 6. Myocardial infarction in the past. 7. Hypothyroidism. 8. Adenoidectomy. 9. Appendectomy. 10. Back surgery. 11. Cholecystectomy. 12. Hysterectomy. 13. Tonsillectomy. 14. Tubal ligation surgery. 15. Cervical fusion surgery. SOCIAL HISTORY: Former smoker. Quit smoking 20 years ago. Denied any history of COPD. Denied any alcohol abuse or any drug abuse. FAMILY HISTORY: Mother of natural causes. Father had myocardial infarction. PHYSICAL EXAMINATION: VITAL SIGNS: Temperature 99.1, pulse of 96, respiratory rate of 18. Blood pressure is 133/78. Saturating at 92% on 2 L of oxygen by nasal cannula. GENERAL: The patient is alert and oriented x3, not in any acute distress. Well developed, well nourished. HEENT: Pupils are round and equally reacting to light. EOMI. No scleral icterus. No conjunctival pallor. Normocephalic, atraumatic. No pharyngeal erythema. No thyromegaly. CARDIOVASCULAR: S1, S2 present. I did not appreciate any JVD. I did not appreciate any S3. PULMONARY: Bibasilar crackles are appreciated. No wheezing was appreciated. Fairly good air entry into bilateral lung chan. ABDOMEN: Soft, nontender, nondistended, normoactive bowel sounds. No palpable organomegaly. MUSCULOSKELETAL: No joint swelling or deformity. EXTREMITIES: No cyanosis, clubbing, or pedal edema. NEUROLOGICAL: Gross neurological examination did not reveal any focal deficits. SKIN: No rashes. LABORATORY DATA: CBC, CMP are essentially within normal limits. BNP as mentioned above. Chest x-ray as mentioned above. EKG as mentioned above. ASSESSMENT AND PLAN: 1. Shortness of breath; unsure of the exact etiology. Patient does not have any clear-cut signs or symptoms of CHF. Patient does not have any JVD or S3, but patient does have elevated BNP, and chest x-ray findings showed some central venous congestion. I will continue with IV Lasix, after which her symptoms of shortness of breath apparently did improve. Obtain an echocardiogram. Takotsubo syndrome is a consideration. 2. Nausea, vomiting secondary to gastritis. Considering her severity of symptoms continuing from her last admission, I will go ahead and consult Gastroenterology; may need an upper GI endoscopy. Patient will be started on Protonix. Naproxen will be discontinued. 3. Chest pain; appears to be musculoskeletal and reproducible in nature. Anyways, Cardiology will be consulted. I will get 2 more sets of troponins. Echocardiogram as mentioned above. 4. Right upper quadrant abdominal pain that has been going on for months. CT of the abdomen did not show any significant abnormality in the previous hospitalization. 5. Coronary artery disease. 6. Patient apparently has congestive heart failure, diastolic dysfunction; ejection fraction abnormal at that time, but patient is not taking any Lasix. 7. Fibromyalgia. 8. Essential hypertension. 9. Restless leg syndrome. 10. Hypothyroidism. For above-mentioned chronic medical problems, I will go ahead and continue her home medications. Patient's primary care physician is Dr. Ajay Ulrich.
[2016-12-27] MEDS ORDERED: IPRATROPIUM-ALBUTEROL 3 ML NEB INHALATION PRN (19:51)
[2016-12-27] MEDS: DIPYRIDAMOLE-ASPIRIN 200-25 MG 1 EACH CPMP.12HR PO SCH (21:43)
[2016-12-27] MEDS: METOPROLOL TARTRATE 12.5 MG TAB PO SCH (21:43)
[2016-12-27] MEDS ORDERED: MORPHINE SULFATE 4 MG/ML SYRINGE IVP PRN (22:28)
[2016-12-27] MEDS: PANTOPRAZOLE 40 MG/10 ML VIAL IVP SCH (22:35)
[2016-12-27] MEDS: METOCLOPRAMIDE 5 MG/ML 2 ML VIAL IVP PRN (22:35)
[2016-12-27] MEDS: ATORVASTATIN 10 MG TAB PO SCH (22:35)
[2016-12-27] MEDS: FUROSEMIDE 10 MG/ML 4 ML VIAL IV SCH (23:29)
[2016-12-28] MEDS: PIPERACILLIN-TAZOBACTAM 3.375 GM in DEXTROSE/WATER 1 50ML.BAG IVPB SCH ×2 (00:10→07:48)
[2016-12-28] MEDS: HYDROcodone/APAP 10-325MG 1 EACH TAB PO PRN ×3 (03:40→21:18)
[2016-12-28] MEDS: NITROGLYCERIN OINT 1 INCH/GM PACKET TOPICAL SCH ×4 (04:24→23:59)
[2016-12-28 05:57] LABS: CH 31.5; CHCM 32.8; HCT 34.5 % (34.0-46.0); HDW 2.59; HGB 11.1 gm/dL (11.4-16.0); MCH 31.1 pg (25.0-35.0); MCHC 32.3 g/dL (31.0-37.0); MCV 96.5 fL (80.0-100.0); Mean Platelet Volume 8.2; RBC 3.57 m/uL (3.80-5.40); RDW 15.2 % (11.5-15.5); WBC 4.8 k/uL (3.8-10.6)
[2016-12-28] MEDS: LEVOTHYROXINE 112 MCG TAB PO SCH (06:00)
[2016-12-28] MEDS: IPRATROPIUM-ALBUTEROL 3 ML NEB INHALATION SCH ×4 (06:09→19:29)
[2016-12-28 06:18] LABS: Anion Gap 8 mmol/L; Blood Urea Nitrogen 15 mg/dL (7-17); Calcium 8.4 mg/dL (8.4-10.2); Carbon Dioxide 35 mmol/L (22-30); Chloride 98 mmol/L (98-107); Glucose 129 mg/dL (74-99); Non-African American GFR(MDRD) >60 (>60 ml/min/1.73 sqM); Sodium 141 mmol/L (137-145)
[2016-12-28] MEDS: ONDANSETRON 4 MG/2 ML VIAL IVP PRN ×2 (07:48→14:35)
[2016-12-28] MEDS: PANTOPRAZOLE 40 MG/10 ML VIAL IVP SCH ×2 (07:56→21:17)
[2016-12-28] MEDS: OXYBUTYNIN 10 MG TAB.ER.24 PO SCH (07:56)
[2016-12-28] MEDS: DIPYRIDAMOLE-ASPIRIN 200-25 MG 1 EACH CPMP.12HR PO SCH ×2 (07:56→21:17)
[2016-12-28] MEDS: FUROSEMIDE 10 MG/ML 4 ML VIAL IV SCH (07:56)
[2016-12-28] MEDS: PREGABALIN 50 MG CAP PO SCH ×3 (07:56→21:17)
--- NOTE | 2016-12-28 08:31 | XR ---
EXAMINATION TYPE: XR chest 2V DATE OF EXAM: 12/28/2016 6:44 AM COMPARISON: 12/27/2016 INDICATION: Pneumonia TECHNIQUE: Frontal and lateral views of the chest are obtained. FINDINGS: The heart size is normal. The pulmonary vasculature is normal. Bibasilar infiltrates are present. This is improving. Small left pleural effusion may be present. Not e is made of a right shoulder prosthesis.. IMPRESSION: 1. Bibasilar infiltrates improving on the left. Continued follow-up is recommended.
--- NOTE | 2016-12-28 10:26 | CONS ---
DATE OF CONSULTATION: CHIEF COMPLAINT: Shortness of breath. This is a 71-year-old lady who was discharged home just 3 days ago, comes in complaining of shortness of breath. There is no history of leg edema, paroxysmal nocturnal dyspnea or orthopnea. The patient has had a recent echo that showed normal LV function. Has elevated BNP and is admitted with diagnosis of congestive heart failure. Patient was in the hospital last month with hypotension, generalized weakness and chest discomfort and at that time had an echo that was unremarkable. The patient also has had chest discomfort on this time mostly on the right side nonradiating without any other associated symptoms. Past medical history is significant for dyslipidemia, hypothyroidism, hypertension and COPD. Medications at home include simvastatin, aspirin, hydrocodone, metoprolol and naproxen. Allergic to BACTRIM and OXYCODONE. Past medical history is significant for COPD, CAD, fibromyalgia, hypertension, dyslipidemia. Past surgical history is significant for cholecystectomy, hysterectomy, tonsillectomy, cervical spine fusion surgery. On exam, comfortable at rest. Heart rate is 75 beats per minute, blood pressure 110/56, respiratory rate is 18. Chest is actually clear to auscultation and percussion. Heart exam reveals first and second heart sounds. No gallop. Abdomen is soft. Exam of the extremities did not reveal any edema. Peripheral pulses are felt. Three sets of troponins are negative. BNP is elevated. Potassium is 4. Creatinine is 0.76. Hemoglobin is 11.1. EKG shows sinus rhythm, normal axis, normal intervals. ASSESSMENT: 1. Shortness of breath, probably secondary to acute diastolic heart failure. 2. Chronic obstructive pulmonary disease. 3. Hypertension. PLAN: Patient is on IV Lasix, which I am going to decrease to once daily. Continue the aspirin, beta blockers and the rest of the things that she is on. I anticipate her going home over the next 24 hours. Thank you for giving me the privilege to participate in the care of this pleasant lady.
[2016-12-28] MEDS: METOCLOPRAMIDE 5 MG/ML 2 ML VIAL IVP PRN (11:02)
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
--- NOTE | 2016-12-28 11:47 | ECHOF ---
Referral Reason:CHF MEASUREMENTS -------- HEIGHT: 162.6 cm WEIGHT: 85.7 kg BP: 92/51 IVSd: 1.1 cm (0.6 - 1.1) LVIDd: 4.1 cm (3.9 - 5.3) LVPWd: 1.1 cm (0.6 - 1.1) LVIDs: 2.4 cm LA Diam: 3.9 cm (2.7 - 3.8) RVIDd: 2.9 cm (< 3.3) LAESV Index (A-L): 44.44 ml/m Ao Diam: 3.1 cm (2.0 - 3.7) AV Cusp: 1.8 cm (1.5 - 2.6) EPSS: 0.8 cm MV E Obey: 2.55 m/s MV DecT: 408 ms MV A Obey: 1.82 m/s MV E/A Ratio: 1.40 AV maxP.21 mmHg AV meanP.81 mmHg RAP: 15.00 mmHg RVSP: 52.67 mmHg MV EF SLOPE: 22.53 mm/s (70 - 150) MV EXCURSION: 8.13 mm (> 18.000) FINDINGS -------- Sinus rhythm with extra systolic beats. This was a technically adequate study. The left ventricular size is normal. There is borderline concentric left ventricular hypertrophy. Overall left ventricular systolic function is normal with, an EF between 60 - 65 %. The right ventricle is normal in size and function. LA is severely dilated >40 ml/m2 The right atrium is normal in size. Aortic valve is trileaflet and is mildly thickened. Trace amount of aortic regurgitation. There is mild aortic stenosis present. Peak/mean gradient across the Aortic Valve is 15.21mmHg / 7.81mmHg. The mitral valve leaflets are moderately thickened. Moderate mitral annular calcification present. Severe mitral regurgitation is present. The peak and mean MV gradients are 26.21mmHg 10.09mmHg as measured by doppler , with a MVA of 3.0cm (by planimetry) [id number] tricuspid regurgitation present. There is moderate pulmonary hypertension. The right ventricular systolic pressure, as measured by Doppler, is 52.67mmHg. Trace/mild (physiologic) pulmonic regurgitation. The aortic root size is normal. The inferior vena cava is dilated with no significant inspiratory collapse which is consistent estimated right atrial pressure of >20 mmHg. There is no pericardial effusion. CONCLUSIONS -------- 1. Sinus rhythm with extra systolic beats. 2. Trace amount of aortic regurgitation. 3. There is mild aortic stenosis present. 4. Peak/mean gradient across the Aortic Valve is 15.21mmHg / 7.81mmHg. 5. The mitral valve leaflets are moderately thickened. 6. Moderate mitral annular calcification present. 7. Severe mitral regurgitation is present. 8. The peak and mean MV gradients are 26.21mmHg 10.09mmHg as measured by doppler. 9. , with a MVA of 3.0cm (by planimetry) 10. [id number] tricuspid regurgitation present. 11. There is moderate pulmonary hypertension. 12. This was a technically adequate study. 13. The right ventricular systolic pressure, as measured by Doppler, is 52.67mmHg. 14. Trace/mild (physiologic) pulmonic regurgitation. 15. The aortic root size is normal. 16. The inferior vena cava is dilated with no significant inspiratory collapse which is consistent estimated right atrial pressure of >20 mmHg. 17. There is no pericardial effusion. 18. The left ventricular size is normal. 19. There is borderline concentric left ventricular hypertrophy. 20. Overall left ventricular systolic function is normal with, an EF between 60 - 65 %. 21. The right ventricle is normal in size and function. 22. LA is severely dilated >40 ml/m2 23. The right atrium is normal in size. 24. Aortic valve is trileaflet and is mildly thickened. ETL TESTER: Laly Castillo RDCS
[2016-12-28 13:27] VITALS: BMI 32.5
--- NOTE | 2016-12-28 14:15 | CONS ---
DATE OF CONSULTATION: 12/28/2016 REASON FOR CONSULTATION: Persistent nausea, vomiting. HISTORY OF PRESENT ILLNESS: The patient is a 71-year-old pleasant lady who was admitted to the hospital with persistent nausea, vomiting for the last few weeks duration. She was just recently treated for nausea, vomiting symptomatically and was discharged home about 3 days ago and now back to the hospital complaining of intense nausea, vomiting almost on a daily basis. She throws up at least once or twice a day usually the symptoms happen when she eats and lasts sometimes all day. She denies any associated abdominal pain. No fever, chills, night sweats. She had a similar hospitalization in August of last year. She had an upper endoscopy done by Dr. Arevalo, which showed a small hiatal hernia and mild gastritis. She denies any heartburn. She reports no dysphagia or odynophagia. No significant change in her bowel habits. Also has exacerbation of congestive heart failure and Cardiology is following the patient closely. Her past medical history is significant for hypertension, hyperlipidemia, congestive heart failure, hypothyroidism, degenerative joint disease and COPD. MEDICATIONS AT HOME: Naproxen, metoprolol, levothyroxine, ropinirole, pregabalin, aspirin, hydrocodone, simvastatin and VESIcare. Allergies to BACTRIM and OXYCODONE. SOCIAL HISTORY: No smoking or alcohol use. FAMILY HISTORY: Unremarkable. PAST SURGICAL HISTORY: Back surgery, cholecystectomy, tubal ligation, hysterectomy, tonsillectomy. REVIEW OF SYSTEMS: CARDIOPULMONARY: No chest pain or shortness of breath. GENITOURINARY: No dysuria or hematuria. MUSCULOSKELETAL: Unremarkable. SKIN: Unremarkable. ENDOCRINE: Unremarkable. PSYCHIATRIC: Unremarkable. NEUROLOGY: Unremarkable. ENT/VISION: Unremarkable. CONSTITUTIONAL: No recent weight loss. No fever, chills or night sweats. On physical examination, she appears comfortable. Vital signs are stable. Blood pressure 109/56, pulse is 75, and afebrile. HEENT EXAMINATION: Unremarkable. Conjunctivae pink. Sclerae anicteric. Oral cavity, no lesions. NECK: No JVD or lymph node enlargement. Chest was clear to auscultation. HEART: Regular rate and rhythm. ABDOMEN: Soft. Bowel sounds are positive. It was nontender, nondistended. Liver and spleen are not palpable. EXTREMITIES: No pedal edema. SKIN: No rashes. NEURO: She is alert and oriented x3. No focal deficits. Labs done at the time of admission to the hospital: WBC 4.8, hemoglobin 11.1, platelets 119. IMPRESSION: Persistent nausea, vomiting on and off for the last 3 to 4 months' duration. She had an upper endoscopy done in August 2016 that showed some gastritis and small hiatal hernia. The patient has no improvement in her symptoms with proton pump inhibitor therapy in the past. She was recently hospitalized a week ago, treated symptomatically and was discharged home and now back to the hospital persistent nausea and vomiting. No history of diabetes mellitus. She denies being started on any new medications in the last 3 months' duration. At this time, possibility of gastric dysmotility versus medication induced side effects causing the nausea, vomiting needs to be considered. RECOMMENDATIONS: 1. I will schedule the patient for a gastric emptying scan on Friday. 2. In the meantime, continue with IV PPI and antiemetics. 3. Small frequent meal. I will follow the patient closely during her hospital stay. Thank you for this consultation.
[2016-12-28] MEDS: SODIUM CHLORIDE 0.9% 1,000 ML IV SCH (15:41)
--- NOTE | 2016-12-28 20:44 | PN ---
Patient is a 71-year-old admitted for congestive heart failure, chronic diastolic dysfunction with acute exacerbation. Patient also had continued nausea and vomiting. Patient was evaluated by cardiology as well as gastroenterology. Gastroenterology believes her nausea is probably induced by medications versus hiatal hernia. Obtained an echocardiogram. Echocardiogram done in January showed normal ejection fraction, actually left ventricular concentric hypertrophy. REVIEW OF SYSTEMS: CARDIOVASCULAR: No chest pain, no orthopnea, no PND, no palpitations. PULMONARY: Denied any shortness of breath. No cough or hemoptysis. GASTROINTESTINAL: Continued nausea and vomiting, but improved. Shortness of breath significantly improved. NEUROLOGIC: No headaches, no weakness, no numbness. Medications were reviewed. PHYSICAL EXAMINATION: Temperature 98.3, pulse 65, respiratory rate of 18, blood pressure is 103/50. Saturating at 95% on 2 L O2 by nasal cannula. GENERAL: The patient is alert and oriented x3, not in any acute distress. Well developed, well nourished. HEENT: Pupils are round and equally reacting to light. EOMI. No scleral icterus. No conjunctival pallor. Normocephalic, atraumatic. No pharyngeal erythema. No thyromegaly. CARDIOVASCULAR: S1 and S2 present. Did not appreciate any jugular venous distention. There is no S3, pedal edema improved. PULMONARY: Chest is clear to auscultation, no wheezing or crackles. ABDOMEN: Soft, nontender, nondistended, normoactive bowel sounds. No palpable organomegaly. MUSCULOSKELETAL: No joint swelling or deformity. EXTREMITIES: No cyanosis, clubbing, or pedal edema. NEUROLOGICAL: Gross neurological examination did not reveal any focal deficits. SKIN: No rashes. ASSESSMENT AND PLAN: 1. Shortness of breath secondary to congestive heart failure, chronic diastolic dysfunction with acute exacerbation. The patient Lasix dose was decreased. 2. Nausea, vomiting secondary to hiatal hernia. Patient is undergoing barium swallow as per gastroenterology. 3. Right upper quadrant abdominal pain, which is chronic. No further intervention at this point of time. 4. Coronary artery disease. 5. Fibromyalgia. 6. Essential hypertension. 7. ( ) syndrome. 8. Hypothyroidism. Plan is to continue with diuretic therapy. I's and O's. Kidney function monitoring. Electrolytes monitoring.
[2016-12-28] MEDS: ATORVASTATIN 10 MG TAB PO SCH (21:16)
[2016-12-28] MEDS: METOPROLOL TARTRATE 12.5 MG TAB PO SCH (21:17)
[2016-12-29 07:03] LABS: Anion Gap 9 mmol/L; Blood Urea Nitrogen 20 mg/dL (7-17); Carbon Dioxide 36 mmol/L (22-30); Chloride 100 mmol/L (98-107); Glucose 89 mg/dL (74-99); Non-African American GFR(MDRD) >60 (>60 ml/min/1.73 sqM); Potassium 3.5 mmol/L (3.5-5.1); Sodium 145 mmol/L (137-145)
[2016-12-29] MEDS: NITROGLYCERIN OINT 1 INCH/GM PACKET TOPICAL SCH ×2 (07:14→11:38)
[2016-12-29] MEDS: IPRATROPIUM-ALBUTEROL 3 ML NEB INHALATION SCH ×4 (08:45→20:34)
[2016-12-29] MEDS: ONDANSETRON 4 MG/2 ML VIAL IVP PRN ×2 (08:50→16:06)
[2016-12-29] MEDS: HYDROcodone/APAP 10-325MG 1 EACH TAB PO PRN ×2 (08:50→14:46)
[2016-12-29] MEDS: LEVOTHYROXINE 112 MCG TAB PO SCH (08:54)
[2016-12-29] MEDS: PREGABALIN 50 MG CAP PO SCH ×3 (08:54→21:31)
[2016-12-29] MEDS: DIPYRIDAMOLE-ASPIRIN 200-25 MG 1 EACH CPMP.12HR PO SCH ×2 (08:55→21:31)
[2016-12-29] MEDS: PANTOPRAZOLE 40 MG/10 ML VIAL IVP SCH ×2 (08:55→21:31)
[2016-12-29] MEDS: OXYBUTYNIN 10 MG TAB.ER.24 PO SCH (08:55)
[2016-12-29] MEDS ORDERED: FUROSEMIDE 10 MG/ML 4 ML VIAL IV SCH (09:00)
[2016-12-29] MEDS: POLYETHYLENE GLYCOL 3350 17 GM POWD.PACK PO SCH (11:37)
--- NOTE | 2016-12-29 12:06 | PN ---
DATE OF SERVICE: 12/29/2016 REQUESTING PHYSICIAN: Dr. Murray. Patient is a 71-year-old pleasant lady with history of congestive heart failure, hypertension was admitted to the hospital because of persistent nausea, vomiting for the last few months duration. She has been having these symptoms for the last 3 months. She was evaluated by Dr. Arevalo and underwent an upper endoscopy in August of last year, which showed small hiatal hernia and mild gastritis. She was treated with Prilosec in the past with no help. She was scheduled for gastric emptying scan today to evaluate for any gastroparesis causing her symptoms. She was taken down for the test to the nuclear medicine department, but patient was complaining of such intense nausea and was about to throw up; hence, the procedure was canceled and she was sent back to her room. She also complains of some vague abdominal fullness and constipation. On physical examination, she appears comfortable. No apparent distress. Vitals as are stable. Blood pressure is 123/63, pulse rate 94, temperature 99. HEENT EXAMINATION: Unremarkable. Conjunctivae pink. Sclerae anicteric. Oral cavity, no lesions. NECK: No JVD, no lymph node enlargement. Chest was clear to auscultation. HEART: Regular rate and rhythm. ABDOMEN: Soft, nontender, nondistended. Liver and spleen are not palpable. Bowel sounds are positive. No organomegaly. EXTREMITIES: No pedal edema. SKIN: No rashes. NEURO: Alert and oriented x3. No focal deficits. No labs available from today IMPRESSION: 1. This is a lady with persistent intermittent nausea, vomiting for the last 3 months' duration. Upper endoscopy by Dr. Arevalo for the same symptoms in August 2016 showed small hiatal hernia and mild gastritis. She has been on Zofran and was started on Reglan yesterday morning with no help. She was scheduled for a gastric emptying scan to evaluate for gastroparesis, but the procedure was cancelled because of intense nausea. Most likely her symptoms are happening because of medication related side effects though she states that she was not started on any new medications in the last 3 months. 2. Congestive heart failure. 3. Mild constipation. RECOMMENDATIONS: 1. Agree with Zofran as well as Reglan as needed for her symptoms. 2. Will start her on MiraLAX for constipation. 3. Hopefully, her symptoms are better tomorrow and we can re-schedule for gastric emptying scan. 4. Small frequent meals and will follow her closely during her hospital stay.
--- NOTE | 2016-12-29 12:36 | P.PN ---
Subjective Principal diagnosis: Acute congestive heart failure secondary to diastolic dysfunction This is a 71-year-old female who is familiar to my service, patient is known to have history of severe COPD, hypertension, hypothyroidism, coronary artery disease, fibromyalgia, patient was recently admitted to [facility] on 2016, and she was mostly admitted with nausea vomiting and diarrhea. Patient was eventually discharged home after few days, however since then the patient has not been feeling well. She has been developing more shortness of breath, some cough, no wheezing, no fever, no chills, no hemoptysis. Shortness of breath has become quite pronounced. Patient presented to the ER, chest x-ray is suggestive of congestive heart failure. Hence the patient was admitted, and this consult was initiated. Patient was given diuretics overnight, and today she seems to be doing much better, breathing a lot easier. Clinically, the patient responded well to diuresis. Looking back at her last admission, patient was seen by many consultants at the time, and she responded well to conservative measures. Today, the patient denies any headaches no blurred vision, no dizziness, no nausea no vomiting no abdominal pain no melena no hematemesis no dysuria and no frequency no urgency. Patient was reevaluated today on 12/29/2016, overall she is feeling better, however she has intermittent episodes of diaphoresis and intermittent chronic nausea and dry heaves. And this has been going on for the last few months. Patient was seen for this by gastroenterology, and she is being evaluated again by Dr. Woodard for these symptoms.. No chest pain, no shortness of breath, no cough, no wheezing, CBC is relatively normal basic metabolic profile is also normal except for a bicarb of 36 which is expected considering the patient is known to have history of COPD. And she has metabolic compensation for her chronic respiratory acidosis. Objective - Vital Signs Vital signs: Vital Signs Temp 97.9 F 12/29/16 11:35 Pulse 87 12/29/16 12:21 Resp 18 12/29/16 11:35 BP 108/69 12/29/16 11:35 Pulse Ox 94 L 12/29/16 11:35 Intake & Output 12/28/16 12/29/16 12/29/16 18:59 06:59 18:59 Intake Total 275 240 Output Total 1500 800 200 Balance -1225 -560 -200 Weight 85.956 kg 86.2 kg Intake: Intake, IV Titration 100 240 Amount Sodium Chloride 0.9% 1, 100 240 000 ml @ 20 mls/hr IV . Q24H [facility] Rx#:[id number] Oral 175 Output: Urine 1500 800 200 Other: Voiding Method Bedside Commode Bedside Commode Bedside Commode # Voids 2 0 1 - Exam Physical Exam: Revealed a 71-year-old female in no distress. HEENT:[Neck is supple.] [No neck masses.] [No thyromegaly.] [No JVD.] Chest: [Clear throughout, minimal fine crackles at the bases, no rhonchi, no wheezes..] Cardiac Exam: [Normal S1 and S2, no S3 gallop, no murmur.] Abdomen: [Soft, nontender, no megaly, no rebound, no guarding, normal bowel sounds.] Extremities: [No clubbing, no edema, no cyanosis.] Neurological Exam: [No focal neurologic deficit.] - Labs CBC & Chem 7: 12/28/16 05:42 12/29/16 05:57 Labs: Abnormal Lab Results - Last 24 Hours (Table) 12/29/16 Range/Units 05:57 Carbon Dioxide 36 H (22-30) mmol/L BUN 20 H (7-17) mg/dL Calcium 8.0 L (8.4-10.2) mg/dL Assessment and Plan Plan: Impression: 1 Acute congestive heart failure secondary to diastolic dysfunction since the patient had a recent echocardiogram and showed good LV function. 2 history of COPD, severe but relatively stable, 3 history of urinary tract infection secondary to Klebsiella pneumonia, 4 history of coronary artery disease and previous HI 5 history of GERD and Mrs. fundoplication. 6 history of fibromyalgia 7 history of essential hypertension 8 history of restless leg syndrome 9 history of CVA/TIA 10 history of hyperlipidemia 11 history of hypothyroidism. Recommendation: Patient seems to be responding well to diuretics, she is now on bronchodilators in the form of DuoNeb, she is back on her usual medications including Lipitor, Aggrenox, Synthroid, Lopressor, and she is empirically on Zosyn. Follow-up chest x-ray in a.m., and if improved, consider discharge planning in the next 24-48 hours. Assuming her GI symptoms improve, and there is follow-up by gastroenterology on these chronic symptoms. Time with Patient: Less than 30
--- NOTE | 2016-12-29 12:50 | PN ---
A 71-year-old lady admitted to hospital with acute diastolic heart failure, feeling better from that standpoint. Her symptoms are primarily GI in origin now. She is on Lopressor 12.5 b.i.d., nitro paste which I am going to stop, Lipitor and Lasix which I am going to switch to p.o. On exam, comfortable at rest. Vital signs are stable. Chest exam reveals good air entry bilaterally. Heart exam reveals first and second heart sounds. No gallop. Abdomen is soft. Exam of the extremities did not reveal any edema. Peripheral pulses are felt. ASSESSMENT: Acute diastolic heart failure, improving. The rest of her evaluation is continuing at the moment.
[2016-12-29] MEDS ORDERED: MAGNESIUM CITRATE 296 ML BOTTLE PO ONE (14:15)
[2016-12-29] MEDS: FUROSEMIDE 40 MG TAB PO SCH (14:53)
[2016-12-29] MEDS: SODIUM CHLORIDE 0.9% 1,000 ML IV SCH (14:55)
--- NOTE | 2016-12-29 17:52 | PN ---
Patient is a 71-year-old admitted with congestive heart failure, chronic diastolic dysfunction with acute exacerbation. Patient is having nausea, vomiting. Patient will undergo gastric emptying studies tomorrow to rule out any gastroparesis and patient has significant clinical improvement, although does have bibasilar crackles that were appreciated. REVIEW OF SYSTEMS: CARDIOVASCULAR: No chest pain, no orthopnea, no PND, no palpitations. PULMONARY: Denied any shortness of breath. No cough or hemoptysis. GASTROINTESTINAL: No diarrhea, nausea or vomiting. No abdominal pain. Normoactive bowel sounds. NEUROLOGIC: No headaches, no weakness, no numbness. Medications were reviewed. PHYSICAL EXAMINATION: Temperature is 97.9, pulse of 87, respiratory rate of 18, blood pressure is 108/69, saturating at 94% on 2 L of O2 by nasal cannula. LUNG EXAMINATION: Bibasilar crackles are still heard. No wheezing was appreciated. Patient continues to have minimally elevated JVD. GENERAL: The patient is alert and oriented x3, not in any acute distress. Well developed, well nourished. HEENT: Pupils are round and equally reacting to light. EOMI. No scleral icterus. No conjunctival pallor. Normocephalic, atraumatic. No pharyngeal erythema. No thyromegaly. CARDIOVASCULAR: S1 and S2 present. No murmurs, rubs, or gallops. ABDOMEN: Soft, nontender, nondistended, normoactive bowel sounds. No palpable organomegaly. MUSCULOSKELETAL: No joint swelling or deformity. EXTREMITIES: No cyanosis, clubbing, or pedal edema. NEUROLOGICAL: Gross neurological examination did not reveal any focal deficits. SKIN: No rashes. LABORATORY DATA: Basic metabolic profile essentially within normal limits except for mildly elevated bicarbonate. ASSESSMENT AND PLAN: 1. Shortness of breath secondary to congestive heart failure, chronic diastolic dysfunction with acute exacerbation. Continue with IV Lasix at 40 mg at this point of time. 2. Nausea, vomiting, secondary to hiatal hernia. Will order any gastroparesis, gastric emptying studies tomorrow. 3. Right upper quadrant pain which is chronic. 4. Coronary artery disease. 5. Fibromyalgia. 6. Essential hypertension. 7. Hypothyroidism. For the rest of the above mentioned chronic medical problems I will go ahead and continue her home medications.
[2016-12-29] MEDS: ATORVASTATIN 10 MG TAB PO SCH (21:31)
[2016-12-29] MEDS: METOPROLOL TARTRATE 12.5 MG TAB PO SCH (21:31)
[2016-12-30 06:32] LABS: Anion Gap 7 mmol/L; Blood Urea Nitrogen 18 mg/dL (7-17); Calcium 8.2 mg/dL (8.4-10.2); Carbon Dioxide 39 mmol/L (22-30); Chloride 98 mmol/L (98-107); Glucose 77 mg/dL (74-99); Non-African American GFR(MDRD) >60 (>60 ml/min/1.73 sqM); Potassium 4.3 mmol/L (3.5-5.1); Sodium 144 mmol/L (137-145)
[2016-12-30] MEDS: IPRATROPIUM-ALBUTEROL 3 ML NEB INHALATION SCH ×4 (07:50→19:00)
[2016-12-30] MEDS ORDERED: PREGABALIN 75 MG CAP PO SCH (09:00)
[2016-12-30] MEDS: HYDROcodone/APAP 10-325MG 1 EACH TAB PO PRN ×2 (10:59→16:52)
[2016-12-30] MEDS: LEVOTHYROXINE 112 MCG TAB PO SCH (11:01)
[2016-12-30] MEDS: DIPYRIDAMOLE-ASPIRIN 200-25 MG 1 EACH CPMP.12HR PO SCH ×2 (11:02→20:45)
[2016-12-30] MEDS: OXYBUTYNIN 10 MG TAB.ER.24 PO SCH (11:02)
[2016-12-30] MEDS: FUROSEMIDE 40 MG TAB PO SCH ×2 (11:02→16:27)
[2016-12-30] MEDS: PANTOPRAZOLE 40 MG/10 ML VIAL IVP SCH ×2 (11:02→20:45)
[2016-12-30] MEDS: POLYETHYLENE GLYCOL 3350 17 GM POWD.PACK PO SCH (11:03)
--- NOTE | 2016-12-30 11:09 | NM ---
EXAMINATION TYPE: NM gastric emptying study DATE OF EXAM: 12/30/2016 10:47 AM COMPARISON: NONE HISTORY: Persistent nausea and vomiting Following administration of 2.2 mCi Tc 99m Sulfur Colloid with 1 cup of oatmeal projection images of the abdomen were obtained 10 minutes post ingestion. When possible, both anterior and posterior proje ction images were obtained to allow the calculation of the geometric mean activity. Clearance: 72 % Half-life: 43 min Gastroesophageal reflux: None IMPRESSION: Gastric emptying: Within normal limits Gastroesophageal reflux: None
--- NOTE | 2016-12-30 12:35 | CDI ---
In responding to this query, please exercise your independent professional judgment. The [facility] [employer] [facility] [employer] Coding Staff and Clinical Documentation Specialists appreciate your assistance in clarifying documentation, maintaining compliance with coding guidelines, accurately documenting patients condition and capturing severity of illness. The fact that a question is asked does not imply that any particular answer is desired or expected. Communication forms are a method of clarifying documentation and are not made part of the Legal Health Record. Thank you in advance for your clarification. Last Revision, January 2016 Roly Soria [address] [facility] [place] [address] Documentation Clarification Form Date: 12/30/2016 12:22:00 PM From: Nila Sims, CCS, CCDS Admit Date: 12/27/2016 3:01:00 PM Patient Name: Jessica Scanlon Visit Number: [id number] Discharge Date: Dr. Jan Faustin: The patient presented with the following respiratory symptoms: SOB, bilateral pleural effusions and mild central venous congestion, elevated BNP 2200, bibasilar crackles and chest pain. On home O2 2-3L nc. History/Risk Factors: Previous ECHO: EF 60-65%. COPD, Gastritis & Curtis's esophagus, CAD, Hypertension, former smoker. Clinical Indicators: VS: T 99, P 106, R 20-26 (sob), BP 134/89, PO 83 ra, 95 3Lnc BMI: 32.2 Treatment: INH, Nitropaste, IV Solumedrol, IV Zofran, IV Morphine, IV Zosyn, O2 2-3Lnc. In your professional opinion, can you please clarify if these findings signify one of the following conditions? Acuity: o Acute o Chronic o Acute on Chronic Respiratory Status: o Respiratory failure o Respiratory failure with hypercapnia o Respiratory failure with hypoxia o Acute Respiratory Distress o Other Diagnosis, please specify o Unable to determine Please document in your progress notes and discharge summary in order to capture severity of illness and risk of mortality. Include clinical findings that support your diagnosis. FYI: Press F11 to launch patient chart. Place X here if this finding has no clinical significance, is not applicable or if you are not able to provide any additional documentation. Thank You. EMELINA
--- NOTE | 2016-12-30 13:20 | P.PN ---
Subjective This is a 71-year-old female who is familiar to my service, patient is known to have history of severe COPD, hypertension, hypothyroidism, coronary artery disease, fibromyalgia, patient was recently admitted to [facility] on 2016, and she was mostly admitted with nausea vomiting and diarrhea. Patient was eventually discharged home after few days, however since then the patient has not been feeling well. She has been developing more shortness of breath, some cough, no wheezing, no fever, no chills, no hemoptysis. Shortness of breath has become quite pronounced. Patient presented to the ER, chest x-ray is suggestive of congestive heart failure. Hence the patient was admitted, and this consult was initiated. The patient is seen again today 12/30/2016 in follow-up on the selective care unit. She is awake and alert in no acute distress. She does have some ongoing issues with nausea and had been seen by Dr. Gutierrez. The patient did have previous cervical spine repair and sometimes gets headaches which could be contributing to the nausea as well. Her gastric emptying study performed this morning revealed no reflux and gastric emptying was within normal limits. Presently, she has no pulmonary complaints, she is maintaining O2 saturations in the low 90s on room air. She is afebrile. Hemodynamically stable. Objective - Vital Signs Vital signs: Vital Signs Temp 97 F L 12/30/16 12:00 Pulse 88 12/30/16 12:17 Resp 16 12/30/16 12:00 BP 111/58 12/30/16 12:00 Pulse Ox 92 L 12/30/16 12:00 Intake & Output 12/29/16 12/30/16 12/30/16 18:59 06:59 18:59 Intake Total 480 240 Output Total 550 1450 Balance -70 -1210 Weight 85 kg Intake: Intake, IV Titration 160 240 Amount Sodium Chloride 0.9% 1, 160 240 000 ml @ 20 mls/hr IV . Q24H [facility] Rx#:[id number] Oral 320 0 Output: Urine 550 1450 Other: Voiding Method Bedside Commode Bedside Commode # Voids 1 - Exam GENERAL EXAM: Obese. Alert, comfortable in no apparent distress. HEAD: Normocephalic. EYES: Normal reaction of pupils, equal size. NOSE: Clear with pink turbinates. THROAT: No erythema or exudates. NECK: No masses, no JVD. CHEST: No chest wall deformity. LUNGS: Equal air entry with faint basilar crackles.. CVS: S1 and S2 normal with no audible murmurs, regular rhythm. ABDOMEN: No hepatosplenomegaly, normal bowel sounds, no guarding or rigidity. Extremities: There is no significant peripheral edema. No clubbing, no cyanosis. Peripheral pulses are intact. - Labs CBC & Chem 7: 12/28/16 05:42 12/30/16 05:35 Labs: Abnormal Lab Results - Last 24 Hours (Table) 12/30/16 Range/Units 05:35 Carbon Dioxide 39 H (22-30) mmol/L BUN 18 H (7-17) mg/dL Calcium 8.2 L (8.4-10.2) mg/dL Assessment and Plan Plan: Impression: 1 Acute congestive heart failure secondary to diastolic dysfunction since the patient had a recent echocardiogram and showed good LV function. 2 History of COPD, severe but relatively stable, 3 History of urinary tract infection secondary to Klebsiella pneumonia, 4 History of coronary artery disease and previous [place] 5 History of GERD and Mrs. fundoplication. 6 History of fibromyalgia 7 History of essential hypertension 8 History of restless leg syndrome 9 History of CVA/TIA 10 History of hyperlipidemia 11 History of hypothyroidism. Plan: The patient was seen and evaluated by Dr. Soto. She has improved with diuretics. She is continued on her pulmonary medications. We'll increase her activity as tolerated. We will continue to follow make further recommendations based on her clinical status.
--- NOTE | 2016-12-30 14:12 | P.PN ---
Subjective Principal diagnosis: CHF This is a pleasant 71-year-old female who follows regularly with Dr. VC Vasquez in the office. She has a known history of hypertension, hypothyroidism, hyperlipidemia, coronary artery disease, severe COPD, she presented to the hospital with symptoms of progressively worsening shortness of breath. Chest x-ray was suggestive of congestive heart failure. Patient was seen and examined this morning, complaining of mild nausea, breathing is stable. She does have some ongoing issues with nausea and has been seen in consultation by Dr. Gutierrez, gastric emptying study performed this morning revealed no reflux and gastric emptying was within normal limits. Echocardiogram with Doppler study revealed an ejection fraction of 60-65%. Her weight today is down 1 kg, she is currently on by mouth Lasix. Objective - Vital Signs Vital signs: Vital Signs Temp 97 F L 12/30/16 12:00 Pulse 88 12/30/16 12:17 Resp 16 12/30/16 12:00 BP 111/58 12/30/16 12:00 Pulse Ox 92 L 12/30/16 12:00 Intake & Output 12/29/16 12/30/16 12/30/16 18:59 06:59 18:59 Intake Total 480 240 Output Total 550 1450 400 Balance -70 -1210 -400 Weight 85 kg Intake: Intake, IV Titration 160 240 Amount Sodium Chloride 0.9% 1, 160 240 000 ml @ 20 mls/hr IV . Q24H [facility] Rx#:[id number] Oral 320 0 Output: Urine 550 1450 400 Other: Voiding Method Bedside Commode Bedside Commode # Voids 1 # Bowel Movements 1 - Exam PHYSICAL EXAMINATION: HEENT: Head is atraumatic, normocephalic. Pupils equal, round. Neck is supple. There is no elevated jugular venous pressure. HEART EXAMINATION: Heart S1, S2 normal. No murmur or gallop heard. CHEST EXAMINATION: Lungs reveal fine crackles to bilateral bases. ABDOMEN: Soft, nontender. Bowel sounds are heard. No organomegaly noted. EXTREMITIES: 2+ peripheral pulses with no evidence of peripheral edema and no calf tenderness noted. NEUROLOGIC patient is awake, alert and oriented -3. . - Labs CBC & Chem 7: 12/28/16 05:42 12/30/16 05:35 Labs: Abnormal Lab Results - Last 24 Hours (Table) 12/30/16 Range/Units 05:35 Carbon Dioxide 39 H (22-30) mmol/L BUN 18 H (7-17) mg/dL Calcium 8.2 L (8.4-10.2) mg/dL Assessment and Plan (1) Diastolic CHF, acute on chronic Status: Acute (2) COPD (chronic obstructive pulmonary disease) Status: Acute (3) CAD (coronary artery disease) Status: Acute (4) HTN (hypertension) Status: Acute (5) History of CVA (cerebrovascular accident) Status: Acute (6) Hyperlipemia Status: Acute (7) Hypothyroid Status: Acute Plan: Cardiology's perspective, we'll recommend to continue the patient on her current medications. A follow-up appointment will be made with Dr. VC Vasquez in the office post discharge. DNP note has been reviewed, I agree with a documented findings and plan of care. Patient was seen and examined.
[2016-12-30] MEDS: ONDANSETRON 4 MG/2 ML VIAL IVP PRN (16:27)
--- NOTE | 2016-12-30 17:17 | PN ---
Patient is a 71-year-old pleasant lady admitted to the hospital with persistent nausea, vomiting for the last 3 months' duration. This morning she had a gastric emptying scan which was reported as normal. The patient had an upper endoscopy done by Dr. Arevalo a couple of months ago, which showed some gastritis and small hiatal hernia. No help with PPI therapy in the past. Presently while in the hospital she is on Zofran as well as Reglan and Protonix. Today she feels a little bit better. On further questioning, the patient states that lately she has been having severe right shoulder pain from cervical neck fusion that was done a few years ago and the pain occasionally radiates to her occipital area and that is what gives her some nausea. On physical examination, she appears comfortable in no apparent distress. Vitals signs are stable. Blood pressure is 130/82, pulse 84 per minute and afebrile. HEENT examination unremarkable. Conjunctivae pink. Sclerae anicteric. Oral cavity, no lesions or rigidity. Lymph node enlargement. CHEST: Clear to auscultation. HEART: Regular rate and rhythm. ABDOMEN: Soft. Bowel sounds are positive. No organomegaly. EXTREMITIES: No pedal edema. SKIN: No rashes. NEURO: Alert and oriented x3. No focal deficits. Labs from today basic metabolic panel is within normal limits. IMPRESSION: Persistent nausea, vomiting for the last 3 months' duration. Upper endoscopy 2 months ago was normal. A gastric emptying scan this morning is normal. Most likely her symptoms are either medication related or pain secondary to pain that she experiences from the cervical fusion causing some headaches. No upper gastrointestinal pathology at this time. RECOMMENDATIONS: 1. Continue with symptomatic and supportive care for chronic nausea and vomiting. 2. No need for more testing. 3. Continue with IV Reglan and Zofran as needed. We will follow her closely during her hospital stay.
[2016-12-30] MEDS: SODIUM CHLORIDE 0.9% 1,000 ML IV SCH (17:53)
[2016-12-30] MEDS ORDERED: NA PHOS,M-B/NA PHOS,DI-BA 133 ML ENEMA RECTAL ONE (18:35)
[2016-12-30] MEDS ORDERED: diphenhydrAMINE 25 MG CAP PO STA (19:30)
[2016-12-30] MEDS: ATORVASTATIN 10 MG TAB PO SCH (20:44)
[2016-12-30] MEDS: NAPROXEN 250 MG TAB PO SCH (22:06)
[2016-12-30] MEDS: METOPROLOL TARTRATE 12.5 MG TAB PO SCH (23:15)
--- NOTE | 2016-12-30 23:52 | PN ---
DATE OF SERVICE: 12/30/2016 PRESENTING COMPLAINT: Tired. INTERVAL HISTORY: This is a patient admitted with CHF exacerbation, known to have diastolic dysfunction. Breathing-james she is doing better, as per Cardiology. Patient does complain of quite a bit of nausea, but when I spoke to the staff, they said patient had eaten rather well; about 60% to 70% of her meals, including chicken strips, rice; kept it down well. On the last admission I had spoken to the nurse and patient had the same symptoms. She said that she was only coughing up spit, but she had been tolerating her diet. Patient does have some chronic neck pain. Patient did have a gastric emptying study that was unremarkable. Review of systems done for constitutional, cardiovascular, GI, pulmonary; relevant findings as above. Current medications are reviewed and include Aggrenox, Lyrica, Requip. On examination, temperature 97, pulse 77, respiration 16, blood pressure 111/58, pulse ox 92% on room air. GENERAL APPEARANCE: Lying in bed, comfortable. EYES: Pupils equal. Conjunctivae normal. NECK: JVD not raised. Mass not palpable. RESPIRATORY: Effort normal. LUNGS: Slightly decreased breath sounds. CARDIOVASCULAR: First and second sounds normal. No edema. ABDOMEN: Soft, nontender. PSYCHIATRY: Alert and oriented x3. Mood and affect slightly low-appearing. INVESTIGATIONS: Potassium 4.3. BUN 18, creatinine 0.76. ASSESSMENT: 1. Acute on chronic congestive heart failure exacerbation from diastolic dysfunction; ejection fraction 50%; secondary to coronary artery disease, clinically improved. 2. Hyperlipidemia. 3. Fibromyalgia, chronic. 4. Essential hypertension. 5. Restless leg syndrome. 6. Hypothyroidism. 7. Chronic obstructive pulmonary disease in an ex-smoker. 8. Nausea; could be a side effect from increased dose of Lyrica. PLAN: Patient is eating rather well as per the nursing staff. Also had a bowel movement today. I will cut back on the dose of Lyrica, give a heating pad for the shoulder. Will switch the Aggrenox to baby aspirin. Patient is on a rather hefty dose on [place]; maybe use at a lower strength and see if that cuts back on the nausea, too. Care was discussed with Dr. Gutierrez over the phone.
[2016-12-31] MEDS: HYDROcodone/APAP 5-325MG 1 EACH TAB PO PRN ×2 (01:28→08:23)
[2016-12-31 02:32] VITALS: TEMP 98.2
[2016-12-31] MEDS: ONDANSETRON 4 MG/2 ML VIAL IVP PRN (05:57)
[2016-12-31] MEDS ORDERED: SODIUM CHLORIDE 0.9% 500 ML IV STA (06:30)
[2016-12-31] MEDS: IPRATROPIUM-ALBUTEROL 3 ML NEB INHALATION SCH ×3 (07:13→15:11)
[2016-12-31] MEDS: LEVOTHYROXINE 112 MCG TAB PO SCH (07:34)
[2016-12-31 07:37] VITALS: BP 93/51; RESP 16
[2016-12-31] MEDS ORDERED: PREGABALIN 75 MG CAP PO SCH (08:00)
[2016-12-31] MEDS: NAPROXEN 250 MG TAB PO SCH (08:14)
[2016-12-31] MEDS: CALCIUM CARBONATE LIQUID 500 MG/5 ML CUP PO SCH ×2 (08:15→13:03)
[2016-12-31] MEDS: OXYBUTYNIN 10 MG TAB.ER.24 PO SCH (08:15)
[2016-12-31] MEDS: POLYETHYLENE GLYCOL 3350 17 GM POWD.PACK PO SCH (08:16)
[2016-12-31] MEDS: FUROSEMIDE 40 MG TAB PO SCH (08:16)
[2016-12-31] MEDS ORDERED: ASPIRIN 81 MG CHEW PO SCH (09:00)
--- NOTE | 2016-12-31 09:40 | CDI ---
In responding to this query, please exercise your independent professional judgment. The [facility] Coding Staff and Clinical Documentation Specialists appreciate your assistance in clarifying documentation, maintaining compliance with coding guidelines, accurately documenting patients condition and capturing severity of illness. The fact that a question is asked does not imply that any particular answer is desired or expected. Communication forms are a method of clarifying documentation and are not made part of the Legal Health Record. Thank you in advance for your clarification. Last Revision, January 2016 Roly Soria [address] [facility] [place] [address] Documentation Clarification Form Date: 12/31/2016 09:38:00 AM From: Nila Sims, CCS, CCDS Admit Date: 12/27/2016 3:01:00 PM Patient Name: Jessica Scanlon Visit Number: [id number] Discharge Date: Dr. Vinh Soto: The patient presented with the following respiratory symptoms: SOB, bilateral pleural effusions and mild central venous congestion, elevated BNP 2200, bibasilar crackles and chest pain. On home O2 2-3L nc. History/Risk Factors: Previous ECHO: EF 60-65%. COPD, Gastritis & Curtis's esophagus, CAD, Hypertension, former smoker. Clinical Indicators: VS: T 99, P 106, R 20-26 (sob), BP 134/89, PO 83 ra, 95 3Lnc BMI: 32.2 Treatment: INH, Nitropaste, IV Solumedrol, IV Zofran, IV Morphine, IV Zosyn, O2 2-3Lnc. In your professional opinion, can you please clarify if these findings signify one of the following conditions? Acuity: o Acute o Chronic o Acute on Chronic Respiratory Status: o Respiratory failure o Respiratory failure with hypercapnia o Respiratory failure with hypoxia o Acute Respiratory Distress o Other Diagnosis, please specify o Unable to determine Please document in your progress notes and discharge summary in order to capture severity of illness and risk of mortality. Include clinical findings that support your diagnosis. FYI: Press F11 to launch patient chart. Place X here if this finding has no clinical significance, is not applicable or if you are not able to provide any additional documentation. Thank You. EMELINA
--- NOTE | 2016-12-31 09:50 | P.PN ---
Subjective Principal diagnosis: 71-year-old female with persistent nausea vomiting for 3 months duration status post gastric emptying study reported as normal. EGD a few months ago reported as normal. Feels better today. Tolerated soft diet this morning. Mild nausea and no emesis. Objective - Vital Signs Vital signs: Vital Signs Temp 98.2 F 12/31/16 07:36 Pulse 71 12/31/16 08:00 Resp 16 12/31/16 08:00 BP 93/51 12/31/16 07:36 Pulse Ox 95 12/31/16 07:36 Intake & Output 12/30/16 12/31/16 12/31/16 18:59 06:59 18:59 Intake Total 480 400 360 Output Total 400 650 Balance 80 -250 360 Weight 84.5 kg 84.5 kg Intake: Oral 480 400 360 Output: Urine 400 650 Other: Voiding Method Bedside Commode Bedside Commode # Voids 1 1 1 # Bowel Movements 1 1 1 - Exam General appearance: The patient is alert, oriented, in no acute distress. HET: Head is normocephalic and atraumatic. Pupils are equal and reactive. Oropharynx is clear without lesions. Neck: Supple without lymphadenopathy. Trachea midline. Heart: S1 S2. Regular rate and rhythm. Lungs: No crackles or wheezes are heard. Abdomen: Soft, nontender, nondistended with bowel sounds. No peritoneal signs. No palpable organomegaly or masses. Extremities: Normal skin color and turgor. No cyanosis, rash, ulceration, clubbing, or edema. Radial and pedal pulses are 2/4 bilaterally. Neurological: No focal deficits. Strength and sensation are grossly intact. - Labs CBC & Chem 7: 12/28/16 05:42 12/30/16 05:35 Assessment and Plan Plan: Impression: 1. Persistent nausea vomiting for last 3 months duration status post upper endoscopy 2 months and reported as normal. Gastric emptying study completed and normal. Most likely symptoms are medication related or pain secondary to pain that she experiences from cervical fusion causing some headaches. No upper GI pathology at this time. Recommendations: 1. Patient has follow-up visit in GI office January 20. 2. Continue with systematic and supportive care for chronic nausea vomiting. 3. We'll sign off and be available for additional questions or concerns. Assessment and plan of care discussed with Dr. Gutierrez.
[2016-12-31 11:53] VITALS: PULSE 71
--- NOTE | 2016-12-31 15:18 | P.PN ---
Subjective Progress note dated 12/31/2016 This is a 71-year-old female who was admitted on 10/26/2017. Seen yesterday with my nurse practitioner Dr. Proctor. She was on selective yesterday and transferred down to the fifth floor sometime yesterday. She is awake and alert. No distress. May be going home today. Anyway the patient's feels a lot better. The patient's breathing is much improved. No pulmonary complaints. Again the patient may be discharged home. She has a history of severe COPD hypertension hypothyroidism coronary artery disease fibromyalgia and recent GI distress. Objective - Vital Signs Vital signs: Vital Signs Temp 98.2 F 12/31/16 07:36 Pulse 71 12/31/16 11:51 Resp 16 12/31/16 11:51 BP 93/51 12/31/16 07:36 Pulse Ox 95 12/31/16 07:36 Intake & Output 12/30/16 12/31/16 12/31/16 18:59 06:59 18:59 Intake Total 480 400 360 Output Total 400 650 250 Balance 80 -250 110 Weight 84.5 kg 84.5 kg Intake: Oral 480 400 360 Output: Urine 400 650 250 Other: Voiding Method Bedside Commode Bedside Commode # Voids 1 1 2 # Bowel Movements 1 1 1 - Exam No acute distress, oriented 3. HEENT examination is grossly unremarkable. Mucous membranes are moist. She is wearing O2. Neck supple. Full range of motion. No adenopathy. Cardiovascular examination reveals regular rhythm rate. S1-S2 normal. No S3- S4 or murmur. Lungs reveal relatively clear but somewhat diminished breath sounds. A few scattered mild rhonchi. No wheezes or crackles. Abdomen soft bowel sounds are heard. Extremities are intact. - Labs CBC & Chem 7: 12/28/16 05:42 12/30/16 05:35 Assessment and Plan (1) CAD (coronary artery disease) Status: Acute (2) COPD (chronic obstructive pulmonary disease) Status: Acute (3) COPD exacerbation Status: Acute (4) Congestive heart failure Status: Acute (5) Diastolic CHF, acute on chronic Status: Acute (6) HTN (hypertension) Status: Acute Plan: Plan dated 12/31/2016 The patient may be discharged home today. Not sure Dr. Sequeira is going to discharge the patient. From the pulmonary standpoint she sure is very stable. We'll continue to follow as needed. Time with Patient: Less than 30
--- NOTE | 2017-01-01 11:09 | CDI ---
In responding to this query, please exercise your independent professional judgment. The [facility] Coding Staff and Clinical Documentation Specialists appreciate your assistance in clarifying documentation, maintaining compliance with coding guidelines, accurately documenting patients condition and capturing severity of illness. The fact that a question is asked does not imply that any particular answer is desired or expected. Communication forms are a method of clarifying documentation and are not made part of the Legal Health Record. Thank you in advance for your clarification. Last Revision, January 2016 Roly Soria [address] [facility] [place] [address] Documentation Clarification Form Date: 12/31/2016 09:38:00 AM RESUBMITTED 01/01/2017 From: Nila Sims, [facility], CCDS Admit Date: 12/27/2016 3:01:00 PM Patient Name: Jessica Scanlon Visit Number: [id number] Discharge Date: 12/31/2016 Dr. Jan Faustin: The patient presented with the following respiratory symptoms: SOB, bilateral pleural effusions and mild central venous congestion, elevated BNP 2200, bibasilar crackles and chest pain. On home O2 2-3L nc. History/Risk Factors: Previous ECHO: EF 60-65%. COPD, Gastritis & Curtis's esophagus, CAD, Hypertension, former smoker. Clinical Indicators: VS: T 99, P 106, R 20-26 (sob), BP 134/89, PO 83 ra, 95 3Lnc BMI: 32.2 Treatment: INH, Nitropaste, IV Solumedrol, IV Zofran, IV Morphine, IV Zosyn, O2 2-3Lnc. In your professional opinion, can you please clarify if these findings signify one of the following conditions? Acuity: o Acute o Chronic o Acute on Chronic Respiratory Status: o Respiratory failure o Respiratory failure with hypercapnia o Respiratory failure with hypoxia o Acute Respiratory Distress o Other Diagnosis, please specify o Unable to determine Please document in your progress notes and discharge summary in order to capture severity of illness and risk of mortality. Include clinical findings that support your diagnosis. FYI: Press F11 to launch patient chart. Place X here if this finding has no clinical significance, is not applicable or if you are not able to provide any additional documentation. Thank You. EMELINA
--- NOTE | 2017-01-02 09:04 | DS ---
DATE OF ADMISSION: 12/27/2016 DATE OF DISCHARGE: 12/31/2016 FINAL DIAGNOSES: 1. Acute on chronic congestive heart failure exacerbation from diastolic dysfunction, ejection fraction 50% secondary to coronary artery disease. 2. Hyperlipidemia. 3. Fibromyalgia. 4. Essential hypertension. 5. Restless leg syndrome. 6. Hypothyroidism. 7. Chronic obstructive pulmonary disease in an ex-smoker. 8. Nausea as a side effect of increased dose of Lyrica. HOSPITAL COURSE: The patient with CHF exacerbation ( ) Lasix, also having nausea. Lyrica dose was cut back, symptoms actually did improve. Also, patient's dose of [place] was cut back. On exam, lungs are clear. CARDIOVASCULAR: First and second sounds are normal. Patient did also have a gastric emptying study, that was within normal limits. A 2-D echocardiogram showed severe mitral regurgitation. CONSULTATIONS: 1. Dr. Soto from Pulmonary. 2. Dr. Galen Gutierrez from GI. 3. Dr. Avery Gutierrez from Cardiology. DISCHARGE MEDICATIONS: 1. Zocor 20 mg q.h.s. 2. VESIcare 10 mg p.o. daily. 3. Synthroid 112 mcg p.o. daily. 4. Lopressor 12.5 p.o. q.h.s. 5. Aspirin 81 mg p.o. daily. 6. Lasix 40 mg p.o. daily. 7. [place] 5 one tablets q.6 p.r.n. 8. DuoNeb t.i.d. 9. Naproxen 250 mg p.o. b.i.d., 20 tablets. 10. MiraLax 17 gm p.o. daily. 11. Potassium 10 mEq daily. 12. Lyrica 150 mg p.o. b.i.d., reduced dose. 13. Requip 1 mg p.o. t.i.d., reduced dose. Follow up with Dr. Ulrich on 01/06/2017. Follow up with cardiology. On exam, LUNGS: Fair air entry. CARDIOVASCULAR: First and second sounds are normal.
--- NOTE | 2017-01-06 08:42 | CDI ---
In responding to this query, please exercise your independent professional judgment. The [facility] Coding Staff and Clinical Documentation Specialists appreciate your assistance in clarifying documentation, maintaining compliance with coding guidelines, accurately documenting patients condition and capturing severity of illness. The fact that a question is asked does not imply that any particular answer is desired or expected. Communication forms are a method of clarifying documentation and are not made part of the Legal Health Record. Thank you in advance for your clarification. Last Revision, January 2016 Roly Soria [address] [facility] [place] [address] Documentation Clarification Form Date: 12/31/2016 09:38:00 AM RESUBMITTED 01/06/2017 From: Nila Sims, [facility], CCDS Admit Date: 12/27/2016 3:01:00 PM Patient Name: Jessica Scanlon Visit Number: [id number] Discharge Date: 12/31/2016 Dr. Jan Faustin: The patient presented with the following respiratory symptoms: SOB, bilateral pleural effusions and mild central venous congestion, elevated BNP 2200, bibasilar crackles and chest pain. On home O2 2-3L nc. History/Risk Factors: Previous ECHO: EF 60-65%. COPD, Gastritis & Curtis's esophagus, CAD, Hypertension, former smoker. Clinical Indicators: VS: T 99, P 106, R 20-26 (sob), BP 134/89, PO 83 ra, 95 3Lnc BMI: 32.2 Treatment: INH, Nitropaste, IV Solumedrol, IV Zofran, IV Morphine, IV Zosyn, O2 2-3Lnc. In your professional opinion, can you please clarify if these findings signify one of the following conditions? Acuity: o Acute o Chronic o Acute on Chronic Respiratory Status: o Respiratory failure o Respiratory failure with hypercapnia o Respiratory failure with hypoxia o Acute Respiratory Distress o Other Diagnosis, please specify o Unable to determine Please document in your progress notes and discharge summary in order to capture severity of illness and risk of mortality. Include clinical findings that support your diagnosis. FYI: Press F11 to launch patient chart. Place X here if this finding has no clinical significance, is not applicable or if you are not able to provide any additional documentation. Thank You. EMELINA
== END 2016-12-31 16:14 | disposition home health service (06) | DRG 292 ==
LOC: EC 12:05 → 6SEL 15:01 → 5MS5E 12-30 17:33
PROVIDERS: ADMIT Hospitalist; ATTEND Hospitalist
DX: I50.33 Acute on chronic diastolic (congestive) heart failure (principal); E87.2 Acidosis; J80 Acute respiratory distress syndrome; J44.9 Chronic obstructive pulmonary disease, unspecified; I34.0 Nonrheumatic mitral (valve) insufficiency; R10.11 Right upper quadrant pain; K29.70 Gastritis, unspecified, without bleeding; K22.70 Barrett's esophagus without dysplasia; K21.0 Gastro-esophageal reflux disease with esophagitis; K44.9 Diaphragmatic hernia without obstruction or gangrene; I25.10 Atherosclerotic heart disease of native coronary artery without angina pectoris; I10 Essential (primary) hypertension; E78.5 Hyperlipidemia, unspecified; M79.7 Fibromyalgia; G25.81 Restless legs syndrome; M54.9 Dorsalgia, unspecified; K59.00 Constipation, unspecified; G89.29 Other chronic pain; Z99.81 Dependence on supplemental oxygen; F32.9 Major depressive disorder, single episode, unspecified; E89.0 Postprocedural hypothyroidism; Z96.651 Presence of right artificial knee joint; Z96.611 Presence of right artificial shoulder joint; E03.9 Hypothyroidism, unspecified; K21.9 Gastro-esophageal reflux disease without esophagitis; R11.0 Nausea; I25.2 Old myocardial infarction; Z98.1 Arthrodesis status; Z86.73 Personal history of transient ischemic attack (TIA), and cerebral infarction without residual deficits; Z87.891 Personal history of nicotine dependence; Z87.440 Personal history of urinary (tract) infections; Z88.2 Allergy status to sulfonamides; Z82.49 Family history of ischemic heart disease and other diseases of the circulatory system; Z88.5 Allergy status to narcotic agent
CPT/HCPCS: 36415; 71020; 78264; 80048; 80053; 82550; 82553; 83605; 83735; 83880; 84484; 85025; 85027; 85610; 85730; 87040; 93005; 93306; 94640; 96374; 96375; 99213; 99285; 99291

== ENCOUNTER 2017-01-16 15:08 | Observation (INO) | payer MEDICARE, BC ==
[2017-01-16] MEDS ORDERED: ASPIRIN 81 MG CHEW PO STA (15:31)
[2017-01-16 15:50] LABS: Basophils # (A) 0.1 k/uL (0-0.2); Basophils % (A) 1 %; CH 31.3; CHCM 32.6; Eosinophils # (A) 0.1 k/uL (0-0.7); Eosinophils % (A) 1 %; HCT 42.6 % (34.0-46.0); HDW 2.65; Luc # (Auto) 0.18; Luc % (Auto) 3; Lymphocytes # (A) 1.3 k/uL (1.0-4.8); Lymphocytes % (A) 23 %; MCHC 33.2 g/dL (31.0-37.0); MCV 96.5 fL (80.0-100.0); Mean Platelet Volume 8.6; Monocytes # (A) 0.4 k/uL (0-1.0); Monocytes % (A) 7 %; Neutrophils # (A) 3.7 k/uL (1.3-7.7); Neutrophils % (A) 64 %; RBC 4.41 m/uL (3.80-5.40); RDW 14.9 % (11.5-15.5); WBC 5.7 k/uL (3.8-10.6); WBC (Perox) 5.77
--- NOTE | 2017-01-16 15:52 | XR ---
EXAMINATION TYPE: XR chest 2V DATE OF EXAM: 01/16/2017 3:47 PM COMPARISON: Prior chest x-ray 28 December 2016 HISTORY: Chest pain and headache TECHNIQUE: Frontal and lateral views of the chest are obtained. FINDINGS: Patient is post shoulder arthroplasty, cervical fusion. There are overlying cardiac leads. There is improvement in aeration, volume status as compared to previous exam. No pneumothorax. Some minimal strand-like densities persist at the lung bases which may reflect atelectasis or scarring. Th ere may be underlying interstitial lung disease. Prominent lung volumes may be indicative of COPD. IMPRESSION: Improvement in volume status, aeration as compared to previous exam. Possible interstiti al lung disease as described, pneumonia felt to be less likely, there may be basilar atelectasis or s car, follow-up as indicated.
[2017-01-16 15:53] LABS: INR 1.1 (<1.1); Partial Thromboplastin Time 23.4 sec (22.0-30.0)
[2017-01-16 15:56] LABS: HGB 14.1 gm/dL (11.4-16.0)
[2017-01-16 15:59] LABS: ALT 34 U/L (9-52); AST 24 U/L (14-36); Alkaline Phosphatase 74 U/L (38-126); Anion Gap 11 mmol/L; Blood Urea Nitrogen 20 mg/dL (7-17); Calcium 9.4 mg/dL (8.4-10.2); Carbon Dioxide 27 mmol/L (22-30); Chloride 107 mmol/L (98-107); Glucose 107 mg/dL (74-99); Magnesium 2.1 mg/dL (1.6-2.3); Non-African American GFR(MDRD) >60 (>60 ml/min/1.73 sqM); Potassium 4.6 mmol/L (3.5-5.1); Sodium 145 mmol/L (137-145); Total Bilirubin 0.9 mg/dL (0.2-1.3); Total Protein 6.9 g/dL (6.3-8.2)
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
[2017-01-16 16:07] LABS: Creatine Kinase 40 U/L (30-135)
[2017-01-16 16:20] LABS: Creatine Kinase MB 0.4 ng/mL (0.0-2.4); Troponin I <0.012 ng/mL (0.000-0.034)
[2017-01-16] MEDS ORDERED: NITROGLYCERIN SL TABS 0.4 MG TAB SUBLINGUAL PRN (16:43)
[2017-01-16] MEDS ORDERED: HYDROcodone/APAP 10-325MG 1 EACH TAB PO ONE (17:34)
[2017-01-16] MEDS ORDERED: HYDROcodone/APAP 10-325MG 1 EACH TAB PO PRN (20:56)
[2017-01-16] MEDS ORDERED: ONDANSETRON 4 MG TAB PO PRN (20:56)
[2017-01-16] MEDS ORDERED: POLYETHYLENE GLYCOL 3350 17 GM POWD.PACK PO PRN (20:56)
[2017-01-16] MEDS ORDERED: IPRATROPIUM-ALBUTEROL 3 ML NEB INHALATION PRN (20:56)
[2017-01-16] MEDS ORDERED: ATORVASTATIN 10 MG TAB PO SCH (21:00)
[2017-01-16] MEDS ORDERED: ALPRAZolam 0.25 MG TAB PO PRN (21:00)
[2017-01-16 21:47] LABS: Creatine Kinase 34 U/L (30-135)
[2017-01-16] MEDS: MORPHINE SULFATE 2 MG/ML SYRINGE IVP PRN ×2 (21:47→21:57)
[2017-01-16] MEDS: PREGABALIN 75 MG CAP PO SCH (21:47)
[2017-01-16] MEDS: DIPYRIDAMOLE-ASPIRIN 200-25 MG 1 EACH CPMP.12HR PO SCH (21:47)
[2017-01-16 22:00] LABS: Creatine Kinase MB 0.3 ng/mL (0.0-2.4); Troponin I <0.012 ng/mL (0.000-0.034)
[2017-01-17] MEDS ORDERED: ONDANSETRON ODT 8 MG TAB.RAPDIS PO PRN (02:35)
[2017-01-17 03:10] LABS: Cholesterol 139 mg/dL (<200); HDL Cholesterol 75 mg/dL (40-60); Triglycerides 83 mg/dL (<150)
[2017-01-17 03:21] LABS: Creatine Kinase 37 U/L (30-135)
[2017-01-17 03:34] LABS: Creatine Kinase MB 0.4 ng/mL (0.0-2.4); Troponin I <0.012 ng/mL (0.000-0.034)
[2017-01-17] MEDS ORDERED: LEVOTHYROXINE 137 MCG TAB PO SCH (06:30)
[2017-01-17 08:22] VITALS: TEMP 97.7
--- NOTE | 2017-01-17 08:37 | CONS ---
DATE OF CONSULTATION: Mrs. Scanlon is 71-year-old female who is followed by Dr. Reginaldo Vasquez on a regular basis who presented with symptoms of right-sided chest discomfort. She was sitting watching her when she had severe pain on the right side of the chest that persisted and with some exacerbation. She had no associated symptoms, came into the emergency room and subsequently admitted. The patient was in the hospital earlier this month with symptoms of dyspnea. She has a history of congestive heart failure on basis of diastolic dysfunction. Her echocardiogram done recently which revealed a preserved left ventricular size systolic function, although there was a mention of severe mitral regurgitation was not documented in the past. Patient is not aware of significant valvular disease according to her. She reports a history of myocardial infarction a few years ago, although no cardiac catheterization was done. According to her, she had a stress test within the last 3 to 4 months that was unremarkable. She has no clear PND, orthopnea. She has some dizziness. No syncope. She is limited in her physical activity because of severe back discomfort and has underwent cervical effusion and has chronic pain. Her coronary risk factors are positive for hypertension, hyperlipidemia. She is a nonsmoker. She stopped 19 years ago. She has been told that she has chronic obstructive lung disease by Dr. Faustin and she uses oxygen at home. Coronary risk factors are positive for cholecystectomy, hysterectomy, tonsillectomy, and cervical fusion. Her medications at home include: 1. Aggrenox. 2. Hydrocodone. 3. Lasix 40 mg daily. 4. DuoNeb. 5. MiraLax. 6. Potassium. 7. Zofran. 8. Synthroid 0.137 mg daily. 9. Zestril 1.25 mg daily. 10. Lyrica 150 mg 3 times a day. 11. Simvastatin 20 mg daily. 12. Requip. 13. Metoprolol succinate 12.5 mg daily. REVIEW OF SYSTEMS: RESPIRATORY SYSTEM: She had dyspnea on exertion, occasional cough, history of chronic obstructive lung disease. GI system: She had episode of nausea and vomiting and diarrhea recently, but that has resolved. GI: No recent GI bleeding. No peptic ulcer disease. system: She had a history of TIA in the past. PHYSICAL EXAMINATION: A 71-year-old female, alert, oriented, in no apparent distress. Blood pressure running in the high in 90s and the heart rate in the 70s. HEAD: Normocephalic. EYES: Sclerae anicteric. NECK: Good upstroke. No bruit. No jugular venous distention. LUNGS: Clear to auscultation. HEART: Regular rate and rhythm. S1, S2, no S3, with systolic murmur at the base 2/6. No diastolic murmur. No rub. ABDOMEN: Soft, obese, nontender, positive bowel sounds. No organomegaly. EXTREMITIES: No edema. Intact distal pulses. LABORATORY DATA: Troponin less than 0.012 for 3 samples. Cholesterol 139, LDL of 47, BUN and creatinine of 20 and 0.8. Hemoglobin of 14.1 potassium of 4.6. EKG revealed a sinus mechanism, normal axis and intervals. Normal echocardiogram. Chest x-ray shows improvement compared chest x-ray done on the . IMPRESSION: 1. Right-sided chest discomfort, atypical for ischemic heart disease, probably noncardiac. 2. History of chronic dyspnea on exertion with chronic obstructive lung disease and a prior history of congestive heart failure on basis of diastolic dysfunction. 3. Reported significant mitral regurgitation on her echocardiogram, although on examination I do not hear significant mitral valve murmur. 4. History of hypertension. 5. Hyperlipidemia. 6. History of cervical spine discomfort and prior fusion. RECOMMENDATIONS: I will obtain the results of her stress test was obtained recently. If there is no significant abnormality, then from the cardiac standpoint, no further work-up will be needed at this time. She will follow up as an outpatient with Dr. Reginaldo Vasquez to further evaluate her mitral valve apparatus. At this time, I see no indication for cardiac work-up during this hospital stay unless the stress test that was done as an outpatient was abnormal. Thank you for this consult. Will follow with you.
[2017-01-17] MEDS ORDERED: LISINOPRIL 2.5 MG TAB PO SCH (09:00)
[2017-01-17] MEDS ORDERED: METOPROLOL SUCCINATE (ER) 25 MG TAB.ER.24H PO SCH (09:00)
[2017-01-17] MEDS ORDERED: POTASSIUM CHLORIDE ER 10 MEQ TAB.ER.PRT PO SCH (09:00)
[2017-01-17] MEDS ORDERED: ASPIRIN 325 MG TAB PO SCH (09:00)
[2017-01-17] MEDS ORDERED: FUROSEMIDE 40 MG TAB PO SCH (09:00)
[2017-01-17] MEDS ORDERED: DOBUTamine DRIP for NUC MED 500 MG in DEXTROSE/WATER 1 250ML.BAG IV ONE (10:12)
[2017-01-17 12:40] VITALS: BP 86/46; PULSE 73; RESP 14
--- NOTE | 2017-01-17 12:42 | ECHOS ---
DATE OF SERVICE: 01/17/2017 AGE: 71Y SEX: F HT: 60" WT: 174 lbs. Protocol Jordan: Others: Dobutamine Stress Echo Stage: Dur. of Exercise: *Heart Rate Blood Pressure *Rest: 69 Rest: 116/76 * *Max. Achieved: 132 Maximum BP: 158/62 85% PMHR: 128 100% PMHR: 150 *METS: INDICATIONS: MEDICATIONS: Patient was given dobutamine infusion according to the standard protocol. Peak heart rate of 132 was achieved. Maximum blood pressure of 158/62 mmHg was noted. Resting EKG shows normal sinus rhythm with normal LA interval and QRS duration and normal ST-T waves. No ST segment depression suggestive of ischemia is noted. An echocardiographic images reveals a normal left ventricular chamber size with normal left ventricular systolic function. At the peak dose of dobutamine infusion, normal increase in the wall thickness and contractility is noted. FINAL IMPRESSION: This dobutamine stress echocardiographic study is negative for stress-induced ischemia. EKG portion of the stress test is not suggestive of ischemia.
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
[2017-01-17] MEDS: DIPYRIDAMOLE-ASPIRIN 200-25 MG 1 EACH CPMP.12HR PO SCH (14:27)
[2017-01-17] MEDS: PREGABALIN 75 MG CAP PO SCH (14:27)
== END 2017-01-17 14:37 | disposition home or self-care (01) ==
LOC: EC 15:08 → 3OBS 16:44
PROVIDERS: ADMIT Internal Medicine; ATTEND Internal Medicine
DX: R07.89 Other chest pain (principal); J96.11 Chronic respiratory failure with hypoxia; J44.9 Chronic obstructive pulmonary disease, unspecified; I11.0 Hypertensive heart disease with heart failure; I50.30 Unspecified diastolic (congestive) heart failure; Z86.73 Personal history of transient ischemic attack (TIA), and cerebral infarction without residual deficits; G62.9 Polyneuropathy, unspecified; E78.5 Hyperlipidemia, unspecified; Z87.891 Personal history of nicotine dependence; E03.9 Hypothyroidism, unspecified; G25.81 Restless legs syndrome; M79.7 Fibromyalgia; I34.0 Nonrheumatic mitral (valve) insufficiency; I25.2 Old myocardial infarction; I25.10 Atherosclerotic heart disease of native coronary artery without angina pectoris; Z79.899 Other long term (current) drug therapy; Z79.82 Long term (current) use of aspirin; Z79.1 Long term (current) use of non-steroidal anti-inflammatories (NSAID); Z82.49 Family history of ischemic heart disease and other diseases of the circulatory system; R42 Dizziness and giddiness; G89.29 Other chronic pain; M54.9 Dorsalgia, unspecified; R32 Unspecified urinary incontinence; Z88.2 Allergy status to sulfonamides; Z88.5 Allergy status to narcotic agent; Z98.1 Arthrodesis status; Z99.81 Dependence on supplemental oxygen; K44.9 Diaphragmatic hernia without obstruction or gangrene
CPT/HCPCS: 99285; 36415; 93005; 93017; 93350; 80061; 80053; 82550 ×2; 82553 ×2; 83735; 84484 ×2; 85025; 85610; 85730; 71020; G0378 ×2; J1250; J2270; 96374; 96376

== ENCOUNTER → 2017-02-15 | Outpatient (CLI) | payer MEDICARE, BC ==
--- NOTE | 2017-02-18 13:36 | MM ---
Reason for exam: screening (asymptomatic). Last mammogram was performed 1 year ago. History: Patient is postmenopausal and has history of endometrial cancer at age 33. Physical Findings: A clinical breast exam by your physician is recommended on an annual basis and results should be correlated with mammographic findings. MG 3D Screening Mammo W/Cad Bilateral CC and MLO view(s) were taken. Prior study comparison: February 02, 2016, bilateral MG 3d diag mammo w/cad YUNIEL. December 30, 2014, bilateral MG screening mammo w CAD. December 30, 2013, bilateral digital screening mammo w/CAD. There are scattered fibroglandular densities. There is chronic nodularity in the right breast. No significant changes when compared with prior studies. ASSESSMENT: Benign, BI-RAD 2 RECOMMENDATION: Routine screening mammogram of both breasts in 1 year.
== END | disposition home or self-care (01) ==
LOC: RADMAMWWP 11:15
PROVIDERS: ATTEND Family Medicine
DX: Z12.31 Encounter for screening mammogram for malignant neoplasm of breast (principal)
CPT/HCPCS: 77063; G0202

== ENCOUNTER 2017-03-11 10:18 | Day surgery (SDC) | payer MEDICARE, BC ==
[2017-03-07 12:19] VITALS: BMI 30.8
[2017-03-11 10:46] VITALS: TEMP 98.6
[2017-03-11] MEDS ORDERED: PROPOFOL 10 MG/ML 20 ML VIAL IV ONE (11:26)
[2017-03-11] MEDS ORDERED: PHENYLEPHRINE-0.9% NACL SYG 1 MG/10 ML SYRINGE ONE (11:26)
[2017-03-11] MEDS ORDERED: ONDANSETRON 4 MG/2 ML VIAL IVP ONE (11:35)
[2017-03-11] MEDS ORDERED: BENZOCAINE SPRAY 100 APPLIC/CAN MUCOUS MEM ONE (11:47)
[2017-03-11] MEDS ORDERED: SODIUM CHLORIDE 0.9% 500 ML IV ONE (12:06)
[2017-03-11 13:04] VITALS: RESP 16
[2017-03-11 13:48] VITALS: BP 95/59; PULSE 71
--- NOTE | 2017-03-12 06:22 | ECHOT ---
DATE OF SERVICE: Mrs. Scanlon is a 71-year-old female who was advised transesophageal echocardiogram to assess the ( ) as well as the mechanism of the mitral regurgitation. This patient has decreased range of motion of the neck and so the patient was given propofol by nurse rodeo rider and transesophageal echocardiogram was performed without any complications. FINDINGS: Left ventricular chamber is normal in size with normal left ventricular systolic function. Left atrium is moderately enlarged. The right ventricle and right atrial chamber is normal in size. There is thickening of the anterior mitral leaflet noted with poor coaptation of the anterior and posterior mitral leaflet. There is no definite evidence of mitral valve prolapse or flailed leaflet. There is no definite evidence of any vegetations on the mitral valve. There is evidence of moderate to severe mitral regurgitation. There is no definite evidence of any reversal of flow in the pulmonary vein and ( ) velocity 0.8 m/second. Interatrial septum is intact. The aortic valve was mildly thickened. FINAL IMPRESSION: 1. There is thickening and calcification of particularly of the anterior mitral leaflet with poor coaptation of the anterior and posterior mitral leaflet. There is no definite evidence of any mitral valve prolapse or flailed mitral leaflet. No definite evidence of any vegetations. 2. Moderate to severe mitral regurgitation is noted. 3. Left ventricular chamber is normal in size with normal left ventricular systolic function. 4. There was no evidence of reversal of flow in the pulmonary vein. 5. Left atrium is moderately enlarged. There is no evidence of thrombus in the left atrium. 6. There is a mild to moderate tricuspid regurgitation noted. 7. Aortic valve is mildly calcified. RECOMMENDATIONS: At present, I would recommend to continue the patient on medical treatment.
[2017-03-12] MEDS ORDERED: LISINOPRIL 2.5 MG TAB PO SCH (09:00)
== END 2017-03-11 14:13 | disposition home or self-care (01) ==
LOC: CATHCVL 10:18
PROVIDERS: ATTEND Internal Medicine Cardiovascular Disease
DX: I08.3 Combined rheumatic disorders of mitral, aortic and tricuspid valves (principal); I67.9 Cerebrovascular disease, unspecified; I20.9 Angina pectoris, unspecified; I11.0 Hypertensive heart disease with heart failure; I50.32 Chronic diastolic (congestive) heart failure; E78.5 Hyperlipidemia, unspecified; Z79.02 Long term (current) use of antithrombotics/antiplatelets; Z79.899 Other long term (current) drug therapy; Z88.2 Allergy status to sulfonamides
CPT/HCPCS: 93312; 93320; 93325; J2405; J2370; J2704

== ENCOUNTER 2017-06-04 09:35 | Emergency (ER) | payer MEDICARE, BC ==
[2017-06-04 09:43] VITALS: RESP 18; TEMP 97.6
[2017-06-04] MEDS ORDERED: diphenhydrAMINE 50 MG CAP PO STA (09:50)
[2017-06-04] MEDS ORDERED: FAMOTIDINE 20 MG TAB PO STA (09:52)
[2017-06-04] MEDS ORDERED: predniSONE 50 MG TAB PO STA (09:52)
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
[2017-06-04 10:44] VITALS: BP 114/69; PULSE 76
== END 2017-06-04 10:49 | disposition home or self-care (01) ==
LOC: EC 09:35
DX: R11.0 Nausea (principal); T36.8X5A Adverse effect of other systemic antibiotics, initial encounter; E78.5 Hyperlipidemia, unspecified; E07.9 Disorder of thyroid, unspecified; M79.7 Fibromyalgia; I25.10 Atherosclerotic heart disease of native coronary artery without angina pectoris; I11.0 Hypertensive heart disease with heart failure; I50.9 Heart failure, unspecified; G25.81 Restless legs syndrome; Z86.73 Personal history of transient ischemic attack (TIA), and cerebral infarction without residual deficits; Z90.49 Acquired absence of other specified parts of digestive tract; Z88.1 Allergy status to other antibiotic agents; Z88.2 Allergy status to sulfonamides; Z88.5 Allergy status to narcotic agent; Z87.891 Personal history of nicotine dependence; Z79.899 Other long term (current) drug therapy
CPT/HCPCS: 99283; J7512

== ENCOUNTER 2017-12-31 11:33 | Inpatient (IN) | payer MEDICARE ==
[2017-12-31] MEDS ORDERED: NITROGLYCERIN OINT 1 INCH/GM PACKET TOPICAL STA (11:55)
[2017-12-31] MEDS ORDERED: SODIUM CHLORIDE 0.9% 1,000 ML IV STA (11:55)
[2017-12-31] MEDS ORDERED: ASPIRIN 81 MG PO STA (11:55)
[2017-12-31] MEDS ORDERED: MORPHINE SULFATE 4 MG/ML SYRINGE IVP STA (11:55)
[2017-12-31] MEDS ORDERED: MORPHINE SULFATE 4 MG/ML SYRINGE IV STA (11:55)
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
[2017-12-31 12:18] LABS: Basophils % (A) 0 %; Eosinophils # (A) 0.1 k/uL (0-0.7); Eosinophils % (A) 1 %; HGB 15.1 gm/dL (11.4-16.0); Lymphocytes # (A) 0.8 k/uL (1.0-4.8); Lymphocytes % (A) 13 %; MCH 32.7 pg (25.0-35.0); MCHC 33.5 g/dL (31.0-37.0); MCV 97.6 fL (80.0-100.0); Mean Platelet Volume 8.1; Monocytes # (A) 0.3 k/uL (0-1.0); Monocytes % (A) 4 %; Neutrophils % (A) 81 %; Platelet Count 152 k/uL (150-450); RBC 4.62 m/uL (3.80-5.40); RDW 13.3 % (11.5-15.5); WBC 6.2 k/uL (3.8-10.6)
[2017-12-31 12:30] LABS: INR 1.1 (<1.2); Partial Thromboplastin Time 23.7 sec (22.0-30.0); Prothrombin Time 10.7 sec (9.0-12.0)
[2017-12-31 12:32] LABS: ALT 28 U/L (9-52); AST 29 U/L (14-36); Albumin 3.7 g/dL (3.5-5.0); Alkaline Phosphatase 91 U/L (38-126); Anion Gap 10 mmol/L; Blood Urea Nitrogen 10 mg/dL (7-17); Calcium 9.1 mg/dL (8.4-10.2); Carbon Dioxide 27 mmol/L (22-30); Chloride 105 mmol/L (98-107); Glucose 111 mg/dL (74-99); Magnesium 2.1 mg/dL (1.6-2.3); Sodium 142 mmol/L (137-145); Total Bilirubin 0.9 mg/dL (0.2-1.3); Total Protein 6.4 g/dL (6.3-8.2)
--- NOTE | 2017-12-31 12:36 | XR ---
EXAMINATION TYPE: XR chest 2V DATE OF EXAM: 12/31/2017 COMPARISON: 11/25/2017 and 01/16/2017 HISTORY: 72-year-old female with chest pain TECHNIQUE: AP and lateral views FINDINGS: Heart upper limits of normal in size. Aorta and pulmonary vasculature within normal limits. Diffuse i nterstitial prominence appears largely chronic. Patchy bibasilar densities are unchanged from 8 and slightly increased from 01/16/2017. Focal density left lower lung is increased. No pleural effusi on. Posterior cervical fusion as well as ACDF and reverse right shoulder arthroplasty noted. IMPRESSION: 1. Chronic parenchymal changes. Patchy bibasilar densities are largely stable from 11/25/2017 suggestin g atelectasis and pleural parenchymal scarring. 2. However, focal left lower lung density is increased. This could represent atelectasis or early dev eloping pneumonia. Correlate with patient's symptoms. Follow-up can be performed.
[2017-12-31 12:40] LABS: Creatine Kinase 77 U/L (30-135)
[2017-12-31 12:50] LABS: Potassium 4.8 mmol/L (3.5-5.1)
[2017-12-31 12:54] LABS: Creatine Kinase MB 0.8 ng/mL (0.0-2.4); Troponin I <0.012 ng/mL (0.000-0.034)
--- NOTE | 2017-12-31 13:30 | CT ---
EXAMINATION TYPE: CT brain wo con DATE OF EXAM: 12/31/2017 COMPARISON: 12/19/2016 HISTORY: 72-year-old female Weakness in upper body, pain TECHNIQUE: Examination was done in axial plane without intravenous contrast. Coronal and sagittal r econstructions performed. CT DLP: 1097 mGycm Automated exposure control for dose reduction was used. FINDINGS: There is no evidence of acute intracranial hemorrhage, acute ischemic changes, mass, mass-effect, or extra-axial fluid collection. There is no effacement of cerebral sulci or basal subarachnoid cister ns. There is no hydrocephalus. There is no midline shift. [place]-white matter distinction is preserv ed. Mild to moderate bifrontal atrophy as seen previously. Paranasal sinuses and are well pneumatized. Trace trapped fluid in the inferior most left mastoid air cells unchanged. Orbits and globes are intact. IMPRESSION: No acute intracranial abnormality seen. Similar mild to moderate bifrontal atrophy.
[2017-12-31] MEDS ORDERED: LEVOFLOXACIN 750MG-D5W PMX 750 MG in DEXTROSE/WATER 1 150ML.BAG IVPB STA (14:10)
[2017-12-31] MEDS ORDERED: MORPHINE SULFATE 4 MG/ML SYRINGE IV PRN (14:11)
[2017-12-31] MEDS ORDERED: NALOXONE 0.4 MG/ML 1 ML VIAL IV PRN (14:11)
[2017-12-31] MEDS ORDERED: ACETAMINOPHEN TAB 325 MG TAB PO PRN (14:11)
[2017-12-31] MEDS ORDERED: ONDANSETRON ODT 4 MG TAB PO PRN (14:14)
[2017-12-31] MEDS ORDERED: NITROGLYCERIN SL TABS 0.4 MG TAB SUBLINGUAL PRN (14:16)
[2017-12-31] MEDS ORDERED: SODIUM CHLORIDE 0.9% 500 ML IV ONE (15:00)
[2017-12-31] MEDS: ONDANSETRON 4 MG/2 ML VIAL IVP PRN (16:37)
[2017-12-31] MEDS ORDERED: LACTATED RINGERS 500 ML IV ONE (17:15)
[2017-12-31] MEDS: PREGABALIN 75 MG CAP PO SCH ×2 (18:31→23:20)
[2017-12-31] MEDS: BUDESONIDE 1 MG/2 ML NEBU INHALATION SCH (19:36)
[2017-12-31] MEDS: IPRATROPIUM 0.5 MG/2.5 ML NEBU INHALATION SCH (19:36)
[2017-12-31] MEDS: FUROSEMIDE 20 MG TAB PO SCH (20:10)
[2017-12-31] MEDS: ATORVASTATIN 10 MG TAB PO SCH (20:10)
[2017-12-31] MEDS: DIPYRIDAMOLE-ASPIRIN 200-25 MG 1 EACH CPMP.12HR PO SCH (20:10)
[2017-12-31] MEDS: HYDROcodone/APAP 10-325MG 1 EACH TAB PO PRN (23:20)
[2018-01-01] MEDS: HYDROcodone/APAP 10-325MG 1 EACH TAB PO PRN ×4 (04:55→23:12)
[2018-01-01] MEDS: LEVOTHYROXINE 112 MCG TAB PO SCH (06:48)
[2018-01-01] MEDS: BUDESONIDE 1 MG/2 ML NEBU INHALATION SCH ×2 (08:33→20:30)
[2018-01-01] MEDS: IPRATROPIUM 0.5 MG/2.5 ML NEBU INHALATION SCH ×2 (08:33→20:30)
[2018-01-01] MEDS: ENOXAPARIN 40 MG/0.4 ML SYRINGE SQ SCH ×2 (09:07→14:08)
[2018-01-01] MEDS: DIPYRIDAMOLE-ASPIRIN 200-25 MG 1 EACH CPMP.12HR PO SCH ×2 (09:07→21:21)
[2018-01-01] MEDS: FLUoxetine HCL 20 MG CAP PO SCH (09:07)
[2018-01-01] MEDS: ASPIRIN 325 MG TAB PO SCH (09:07)
[2018-01-01] MEDS: MAGNESIUM OXIDE 400 MG TAB PO SCH (09:08)
[2018-01-01] MEDS: LISINOPRIL 2.5 MG TAB PO SCH (09:08)
[2018-01-01] MEDS: SPIRONOLACTONE 25 MG TAB PO SCH (09:10)
[2018-01-01] MEDS: FLUTICASONE 50MCG/SPRAY NASAL 16GM EA NOSTRIL SCH (09:14)
[2018-01-01] MEDS: PREGABALIN 75 MG CAP PO SCH ×3 (09:14→21:23)
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
[2018-01-01] MEDS ORDERED: RX INFO: IV CONTRAST WAS GIVEN 1 EACH MISC MISCELLANE PRN (10:40)
[2018-01-01] MEDS ORDERED: DOBUTamine DRIP for NUC MED 250 MG in DEXTROSE/WATER 1 250ML.BAG IV ONE (11:00)
[2018-01-01 11:33] VITALS: BMI 33.8
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
--- NOTE | 2018-01-01 13:04 | CT ---
EXAMINATION TYPE: CT angio chest DATE OF EXAM: 01/01/2018 COMPARISON: Prior chest CT 05/12/2014 HISTORY: shortness of breath and chest discomfort CT DLP: 591 mGycm Automated exposure control for dose reduction was used. CONTRAST: CTA scan of the thorax is performed with IV Contrast, patient injected with 100 mL of Omnipaque 350, pulmonary embolism protocol. MIP images are created and reviewed. 3D reconstructed images are creat ed on an independent workstation and reviewed. FINDINGS: LUNGS: The lungs are remarkable for some vague areas of groundglass opacity and tree-in-bud densities which have developed in the interval, there is no concerning parenchymal mass or nodule identified. Areas of scarring again noted. There is no pleural effusion or pneumothorax seen. The tracheobronc hial tree is patent. AORTA: No additional significant abnormality is seen. MEDIASTINUM: There is satisfactory enhancement of the pulmonary artery and its branches, there is no CT evidence for pulmonary embolism. There are no greater than 1 cm hilar or mediastinal lymph nodes. Pulmonary artery is prominent. No pericardial effusion is seen. There are coronary artery calcifica tions present. OTHER: Low dense adrenal mass is again noted. Patient is post cholecystectomy. Colonic interposition present anterior to the liver. Postop changes are noted to be level of the gastroesophageal junction , there is a hiatal hernia suspected.. Postop changes noted in the right hemidiaphragm. IMPRESSION: THERE MAY BE AREAS OF PNEUMONITIS, CONSIDER EDEMA, EARLY PNEUMONIA, ALLERGIC ALVEOLITIS. FOLLOW-UP IS RECOMMENDED. NO EVIDENT PULMONARY EMBOLISM. CORRELATE FOR POSSIBLE PULMONARY ARTERY HYPERTENSION. CO RONARY ARTERY DISEASE. Additional findings above.
--- NOTE | 2018-01-01 13:54 | ECHOS ---
STRESS ECHOCARDIOGRAM INDICATIONS: Chest pain. BASELINE HEART RATE: 85 BASELINE BLOOD PRESSURE: 119/41 MAXIMUM HEART RATE: 137 MAXIMUM BLOOD PRESSURE: 119/43 85% MPHR: 127 100% MPHR: 149 MAXIMUM STAGE REACHED: 2 TOTAL EXERCISE TIME: 6:00 CLINICAL INFORMATION: Baseline rhythm is a sinus mechanism, rate of 85, normal axis and intervals. Normal echocardiogram. Baseline blood pressure 119/41 mmHg. Patient received an infusion of dobutamine per protocol. Peak rate 137 beats per minute, which is equal to 92% maximum predicted heart rate. Peak blood pressure 119/43 mmHg. Electrocardiographic monitoring revealed rare PVCs. There was no evidence of diagnostic ischemic ST deviation. FINDINGS: Baseline echocardiogram revealed normal function with peak exercise. There was normal wall motion augmentation with no hypokinesis or dyskinesis. CONCLUSION: 1. Normal electrocardiac response to dobutamine infusion with rare premature ventricular contractions. 2. Normal stress echocardiogram with no evidence of stress-induced ischemia. MMODL / IJN: [id number] /
[2018-01-01] MEDS ORDERED: LEVOFLOXACIN 750MG-D5W PMX 750 MG in DEXTROSE/WATER 1 150ML.BAG IVPB SCH (14:00)
[2018-01-01] MEDS: LEVOFLOXACIN 750 MG TAB PO SCH (14:08)
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
--- NOTE | 2018-01-01 16:07 | P.PN ---
Progress Note - Text Progress Note Date: 01/01/18 DATE OF SERVICE: 01/01/2018 PRESENTING COMPLAINT: Not feeling well. HISTORY OF PRESENT ILLNESS: 72-year-old female who presented with several days of not feeling well, decreased appetite some vomiting feeling warm sweaty had 2 loose stools some headaches and shortness of breath. Just tired and rundown. Complained of chest pressure over the previous 24 hours. Chest x-ray revealed infiltrate, admitted for pneumonia. INTERVAL HISTORY: 01/01/2018: Lying in bed appears comfortable. No acute overnight events, vital signs stable afebrile. Patient is possibly having a stress test later today. States she continues to have some constant chest pressure. Troponins were negative 3. Computed tomography scan and chest x-ray revealed chronic changes not acute pneumonia, per pulmonology. Tolerating her diet, up with assistance. Last BM prior to admission. REVIEW OF SYSTEMS: Done for constitutional ,cardiovascular, GI, pulmonary with relevant findings as above. CURRENT MEDICATIONS Acetaminophen, [place], aspirin, Lipitor, budesonide, Aggrenox, Lovenox, fentanyl , fluoxetine, zone, Lasix, levofloxacin, levothyroxine sodium, lisinopril, mag oxide, morphine, Narcan, Nitrostat, Zofran, Lyrica, Requip, spironolactone, PHYSICAL EXAM VITAL SIGNS: Temperature 97.3, pulse 61, respirations 18, blood pressure 116/58, oxygen saturation 97% on 2 L. GENERAL APPEARANCE: Lying in bed, not in distress. HENT: Normocephalic, JVD not raised. Mass not palpable. Oral cavity normal, external appearance of ears and nose normal. EYES:Pupils equal. Conjunctiva normal. RESPIRATORY: Respiratory effort normal. Lungs diminished bilaterally to auscultation. CARDIOVASCULAR: First and second sounds normal. No edema. ABDOMEN: Soft. Liver and spleen not palpable. No tenderness. No mass palpable. PSYCHIATRY: Alert and oriented x3. Mood and affect normal. INVESTIGATIONS: LABS: CBC and BMP grossly unremarkable, troponin 3 episodes negative. Influenza A and B, negative Stress test: Normal stress echocardiogram and normal response to dobutamine infusion Negative for any stress-induced ischemia ASSESSMENT: -Acute pneumonia in a patient who felt warm sweaty some nausea vomiting not feeling well decreased appetite, chest x-ray revealed infiltrate. -Chronic congestive heart failure from diastolic dysfunction, ejection fraction 55% to 60% from hypertensive heart disease. -Hyperlipidemia. -Chronic fibromyalgia. -Essential hypertension. -Rest leg syndrome. -Hypothyroidism. -Chronic obstructive pulmonary disease in ex-smoker. -Gait dysfunction, uses a walker. -Chronic hypoxic respiratory failure on 2-3 L of oxygen. -Hiatal hernia,. -Moderate secondary pulmonary hypertension secondary to chronic obstructive pulmonary disease. -Severe mitral regurgitation nonrheumatic. PLAN: Pulmonology there is no pneumonia, the changes seen on the x-ray are chronic changes. Therefore we'll stop the Levaquin. Patient's stress test today was negative for any ischemic changes, will likely be cleared by cardiology for discharge tomorrow. Plan of care discussed at the bedside we will follow closely. MOBILE MECHANIC statement: Patient was seen and examined by nurse practitioner Coco Alfred and all elements of the case discussed with attending Dr. Sequeira
[2018-01-01] MEDS ORDERED: TEMAZEPAM 15 MG CAP PO PRN (21:17)
[2018-01-01] MEDS: ATORVASTATIN 10 MG TAB PO SCH (21:22)
--- NOTE | 2018-01-01 21:27 | PN ---
PROGRESS NOTE DATE OF SERVICE: January 01, 2018. ATTENDING NOTE: The patient seen and examined by me. Discussed with nurse practitioner, Ms. Alfred. This patient presented with feeling warm, some nausea, no vomiting. Chest x-ray showed some possible infiltrates. Started on antibiotics. She is feeling better today. Did have a stress test that was negative. Tolerating a diet. PHYSICAL EXAMINATION: Afebrile. Pulse 81, blood pressure 102/58, pulse ox 97% on 2 L. ASSESSMENT: 1. Probably bacterial pneumonia versus viral pneumonitis. Clinically improving with antibiotic. 2. Stress test negative. 3. Other medical conditions stable. PLAN: Continue current medication and treatment plan. If continues to do well, will DC home tomorrow. Chest CTA negative for PE. MMODL / IJN: [id number] /
[2018-01-01] MEDS: MELATONIN 5 MG TABLET PO PRN (23:12)
[2018-01-01] MEDS: FUROSEMIDE 20 MG TAB PO SCH (23:12)
[2018-01-02] MEDS: IPRATROPIUM 0.5 MG/2.5 ML NEBU INHALATION SCH ×4 (01:51→21:12)
[2018-01-02] MEDS: LEVOTHYROXINE 112 MCG TAB PO SCH (06:12)
[2018-01-02] MEDS: ASPIRIN 325 MG TAB PO SCH (08:33)
[2018-01-02] MEDS: FLUoxetine HCL 20 MG CAP PO SCH (08:33)
[2018-01-02] MEDS: ENOXAPARIN 40 MG/0.4 ML SYRINGE SQ SCH (08:33)
[2018-01-02] MEDS: DIPYRIDAMOLE-ASPIRIN 200-25 MG 1 EACH CPMP.12HR PO SCH ×2 (08:33→21:03)
[2018-01-02] MEDS: SPIRONOLACTONE 25 MG TAB PO SCH (08:34)
[2018-01-02] MEDS: FLUTICASONE 50MCG/SPRAY NASAL 16GM EA NOSTRIL SCH (08:34)
[2018-01-02] MEDS: LISINOPRIL 2.5 MG TAB PO SCH (08:34)
[2018-01-02] MEDS: MAGNESIUM OXIDE 400 MG TAB PO SCH (08:34)
[2018-01-02] MEDS: PREGABALIN 75 MG CAP PO SCH ×3 (08:36→22:08)
[2018-01-02] MEDS: BUDESONIDE 1 MG/2 ML NEBU INHALATION SCH ×2 (09:09→21:12)
--- NOTE | 2018-01-02 10:40 | P.PN ---
Subjective Progress Note Date: 01/02/18 Principal diagnosis: Atypical chest pain This is a very pleasant 72-year-old female patient who follows with Dr. Alissa Ulrich as her primary care physician. She has a history of coronary disease, congestive heart failure, CVA/TIA, fibromyalgia, hyperlipidemia, hypertension, hypothyroidism, chronic back pain, restless leg syndrome. She also has a remote history of chronic tobacco dependence for approximately 15 years however quit 20 years ago. She does have COPD and follows with Dr. Faustin in our office for the same. She presented to the emergency room yesterday with complaints of chest pressure and tingling and numbness of her bilateral arms. She states she had been sick for a few days with some nausea, vomiting and diarrhea. Her troponins were negative 3. Influenza screen was negative. Dobutamine stress test performed today was negative for cardiac ischemia. A CT angiogram was performed and revealed some possible areas of pneumonitis versus edema. She denied any worsening shortness of breath, cough or congestion. No chills or night sweats. Afebrile. No tachycardia. No tachypnea. Hemodynamically stable. Maintaining good O2 saturations in the high 90s on 2 L/m per nasal cannula. No leukocytosis. The patient is seen again today 01/02/2018 in follow-up on the selective care unit. She is awake and alert in no acute distress. She denies any worsening shortness of breath, cough or congestion. No chest pain, palpitations lightheadedness or dizziness. She is maintaining good O2 saturations in the mid to upper 90s on 2 L/m per nasal cannula. She's been afebrile. Hemodynamically stable. Objective - Vital Signs Vital signs: Vital Signs Temp 98.3 F 01/02/18 08:00 Pulse 69 01/02/18 08:00 Resp 16 01/02/18 04:05 BP 90/55 01/02/18 08:00 Pulse Ox 95 01/02/18 08:00 Intake & Output 01/01/18 01/02/18 01/02/18 18:59 06:59 18:59 Intake Total 1335 354 Balance 1335 354 Weight 78.7 kg 80.3 kg Intake: Intake, IV Titration 625 Amount Sodium Chloride 0.9% 1, 625 000 ml @ 75 mls/hr IV . [id number] STA Rx#:[id number] Oral 710 354 Other: # Voids 2 - Exam GENERAL EXAM: Alert, active, comfortable in no apparent distress. HEAD: Normocephalic. EYES: Normal reaction of pupils, equal size. NOSE: Clear with pink turbinates. THROAT: No erythema or exudates. NECK: No masses, no JVD. CHEST: No chest wall deformity. LUNGS: Equal air entry with no crackles, wheeze, rhonchi or dullness. CVS: S1 and S2 normal with no audible murmur, regular rhythm. ABDOMEN: No hepatosplenomegaly, normal bowel sounds, no guarding or rigidity. SPINE: No scoliosis or deformity SKIN: No rashes CENTRAL NERVOUS SYSTEM: No focal deficits, tone is normal in all 4 extremities. EXTREMITIES: There is no peripheral edema. No clubbing, no cyanosis. Peripheral pulses are intact. - Labs CBC & Chem 7: 12/31/17 11:42 12/31/17 11:42 Assessment and Plan Assessment: Impression: #1 Atypical chest pain. No evidence of stress-induced ischemia on dobutamine stress echocardiogram. #2 Chronic obstructive pulmonary disease, oxygen dependent, currently inactive and stable. No evidence of pneumonia clinically or radiographically. Findings of the computed tomography scan are chronic. #3 History of CVA. #4 Hyperlipidemia. #5 Hypertension. #6 Hypothyroidism. #7 Fibromyalgia. #8 Chronic pain syndrome. #9 Coronary artery disease. #10 Severe mitral regurgitation. #11 Moderate pulmonary hypertension. Plan: The patient was seen and evaluated by Dr. Faustin. She is cleared for discharge from the pulmonary standpoint. Continue with her home medications. She should follow-up in our office in 1-2 weeks' time. She is however encouraged to call sooner with any recurrence of symptoms or other questions or concerns. I, the cosigning physician, performed a history & physical examination of the patient. Lungs sounds are clear. Maintaining good O2 saturations in the 90s on 2 L/m per nasal cannula. I discussed the assessment and plan of care with my nurse practitioner, Mary Cobos. I attest to the above note as dictated by her.
[2018-01-02] MEDS: ONDANSETRON 4 MG/2 ML VIAL IVP PRN (12:00)
[2018-01-02] MEDS ORDERED: MORPHINE ORAL SOLN 10 MG/5 ML CUP PO PRN (13:58)
[2018-01-02] MEDS: LEVOFLOXACIN 750 MG TAB PO SCH (14:02)
--- NOTE | 2018-01-02 14:36 | P.PN ---
Subjective Progress Note Date: 01/02/18 This is a pleasant 72-year-old female who sees Dr. VC Vasquez in the office on a regular basis. Patient has history of hypertension, hyperlipidemia , history of CVA, she is a non-smoker, history of COPD, uses home O2, patient had a dobutamine echocardiographic study performed in January 2017 which was negative for stress-induced ischemia. Patient also underwent a ELLI in February 2017 which revealed thickening and calcification of the anterior mitral leaflet with poor coaptation of the anterior and posterior mitral leaflet, no definite evidence of any mitral valve prolapse or flail mitral leaflet. No evidence of vegetations. Moderate to severe mitral regurg. Left ventricular chamber was normal in size with normal left ventricular systolic function. Left atrium moderately enlarged. Mild to moderate tricuspid regurg. Patient also had an echocardiogram with Doppler study performed in December 2016 which revealed an ejection fraction of 60-65%, severe mitral regurgitation. Patient presents to the hospital on this occasion with symptoms of midsternal chest pressure and heaviness. 2 days ago the patient states she had 3 separate bouts of loose diarrhea stools, a subsequent to that she states she had some nausea and vomiting. Patient then states she had an episode where her upper body from the hips up, including bilateral arms became extremely numb and weak. She had some mild associated dizziness. She then developed chest pressure and heaviness midsternal, mild associated shortness of breath. And it was for this reason that she came to the emergency room for further evaluation. EKG performed on arrival here showed a normal sinus rhythm with no acute changes. Chest x-ray reveals chronic parenchymal changes. Patchy bibasilar densities largely stable as compared with prior chest x-ray. However left lower lung density has increased. This could represent pneumonia. CAT scan of the brain was performed which did not reveal any acute intracranial abnormality. patient underwent dobutamine stress echo that showed no evidence of ischemia. the patient was to be discharged however is being held up due to low blood pressure. Patient is asymptomatic at this time. Objective - Vital Signs Vital signs: Vital Signs Temp 98.3 F 01/02/18 08:00 Pulse 76 01/02/18 13:54 Resp 16 01/02/18 04:05 BP 76/42 01/02/18 12:00 Pulse Ox 98 01/02/18 12:00 Intake & Output 01/01/18 01/02/18 01/02/18 18:59 06:59 18:59 Intake Total 1335 590 Balance 1335 590 Weight 78.7 kg 80.3 kg Intake: Intake, IV Titration 625 0 Amount Levofloxacin 750Mg-D5w 0 Pmx 750 mg In Dextrose/ Water 1 150ml.bag @ 100 mls/hr IVPB Q24H MARICARMEN Rx#: [id number] Sodium Chloride 0.9% 1, 625 000 ml @ 75 mls/hr IV . [id number] STA Rx#:[id number] Oral 710 590 Other: # Voids 2 - Exam PHYSICAL EXAMINATION: HEENT: [Head is atraumatic, normocephalic. Pupils equal, round. Neck is supple. There is no elevated jugular venous pressure.] HEART EXAMINATION: [Heart sounds regular, S1 and S2 with a systolic murmur.] CHEST EXAMINATION:[ Lungs are clear to auscultation and precussion. No chest wall tenderness is noted on palpation or with deep breathing.] ABDOMEN: [ Soft, nontender. Bowel sounds are heard. No organomegaly noted]. EXTREMITIES:[ 2+ peripheral pulses with no evidence of peripheral edema and no calf tenderness noted]. NEUROLOGIC [patient is awake, alert and oriented x3.] . - Labs CBC & Chem 7: 12/31/17 11:42 12/31/17 11:42 Assessment and Plan Assessment: #1 chest pain, atypical, dobutamine stress echo negative for reversible ischemia #2 moderate to severe mitral regurgitation #3 hypertension, Currently hypotensive #4 hyperlipidemia #5 COPD Plan: From cardiology's perspective, we will decrease Aldactone to 12.5 mg daily. Anticipate the patient will be discharged in the next 24 hours. SENIOR ENERGY MARKET COORDINATOR note has been reviewed, I agree with a documented findings and plan of care. Patient was seen and examined.
[2018-01-02] MEDS ORDERED: SODIUM CHLORIDE 0.9% 1,000 ML IV SCH (14:45)
[2018-01-02] MEDS: HYDROcodone/APAP 10-325MG 1 EACH TAB PO PRN (21:02)
[2018-01-02] MEDS: ATORVASTATIN 10 MG TAB PO SCH (21:03)
[2018-01-02] MEDS: FUROSEMIDE 20 MG TAB PO SCH (22:08)
--- NOTE | 2018-01-02 23:28 | PN ---
PROGRESS NOTE DATE OF SERVICE: 01/02/2018 PRESENTING COMPLAINT: Tired. INTERVAL HISTORY: This patient presented with what appeared to be pneumonia, had a stress test that was negative. Earlier today, patient's blood pressure dropped down to 70 systolic. Patient just felt a bit tired. REVIEW OF SYSTEMS: Done for constitutional, cardiovascular, GI, pulmonary; relevant findings as above. The patient overall feeling much better. EXAMINATION: Temperature 98.3, pulse 69, blood pressure down to 76/42, pulse ox 98% on 2L. GENERAL APPEARANCE: Sitting on bed, less tired. EYES: Pupils equal. Conjunctivae normal. HEENT: External nose and ears normal. Oral cavity normal. NECK: JVD not raised. Mass not palpable. RESPIRATORY: Effort normal. LUNGS: Decreased breath sounds. No crackles. CARDIOVASCULAR: First and second sounds normal. No edema. ABDOMEN: Soft, nontender. Liver and spleen not palpable. PSYCHIATRY: Alert and oriented x3. Mood and affect normal. INVESTIGATIONS: From today, proBNP was 611. ASSESSMENT: 1. Pneumonia versus pneumonitis, responded well to IV antibiotic. Clinically feeling better. 2. Chronic congestive heart failure from diastolic dysfunction, ejection fraction 55%- 60% from hypertensive heart disease. 3. Hyperlipidemia. 4. Chronic fibromyalgia. 5. Hypotension. 6. Chronic fibromyalgia. 7. Restless legs syndrome. 8. Hypothyroidism. 9. Chronic obstructive pulmonary disease. 10.Smoker. 11.Gait dysfunction, uses a walker. 12.Chronic hypoxic respiratory failure on 2-3L of oxygen. 13.Hiatal hernia. 14.Moderate secondary pulmonary hypertension secondary to chronic obstructive pulmonary disease. 15.Severe mitral regurgitation, nonrheumatic. Given that patient is hypotensive, will order IV fluids. We will stop the patient's MANSI inhibitor. The patient is already on a p.o. antibiotic. Will keep the patient overnight, given that patient is hypotensive, and see how she is doing. MMODL / IJN: [id number] /
[2018-01-03] MEDS: MELATONIN 5 MG TABLET PO PRN (00:19)
[2018-01-03] MEDS: LEVOTHYROXINE 112 MCG TAB PO SCH (06:23)
[2018-01-03] MEDS: BUDESONIDE 1 MG/2 ML NEBU INHALATION SCH ×2 (08:08→20:19)
[2018-01-03] MEDS: IPRATROPIUM 0.5 MG/2.5 ML NEBU INHALATION SCH ×3 (08:09→20:19)
[2018-01-03] MEDS: DIPYRIDAMOLE-ASPIRIN 200-25 MG 1 EACH CPMP.12HR PO SCH ×2 (09:04→21:01)
[2018-01-03] MEDS: ENOXAPARIN 40 MG/0.4 ML SYRINGE SQ SCH (09:05)
[2018-01-03] MEDS: FLUTICASONE 50MCG/SPRAY NASAL 16GM EA NOSTRIL SCH (09:05)
[2018-01-03] MEDS: MAGNESIUM OXIDE 400 MG TAB PO SCH (09:05)
[2018-01-03] MEDS: FLUoxetine HCL 20 MG CAP PO SCH (09:05)
[2018-01-03] MEDS: PREGABALIN 75 MG CAP PO SCH ×3 (09:06→20:54)
[2018-01-03] MEDS: SPIRONOLACTONE 25 MG TAB PO SCH (09:06)
[2018-01-03] MEDS: HYDROcodone/APAP 10-325MG 1 EACH TAB PO PRN ×3 (09:10→23:11)
--- NOTE | 2018-01-03 11:55 | P.PN ---
Subjective Progress Note Date: 01/03/18 Principal diagnosis: Atypical chest pain This is a very pleasant 72-year-old female patient who follows with Dr. Alissa Ulrich as her primary care physician. She has a history of coronary disease, congestive heart failure, CVA/TIA, fibromyalgia, hyperlipidemia, hypertension, hypothyroidism, chronic back pain, restless leg syndrome. She also has a remote history of chronic tobacco dependence for approximately 15 years however quit 20 years ago. She does have COPD and follows with Dr. Faustin in our office for the same. She presented to the emergency room yesterday with complaints of chest pressure and tingling and numbness of her bilateral arms. She states she had been sick for a few days with some nausea, vomiting and diarrhea. Her troponins were negative 3. Influenza screen was negative. Dobutamine stress test performed today was negative for cardiac ischemia. A CT angiogram was performed and revealed some possible areas of pneumonitis versus edema. She denied any worsening shortness of breath, cough or congestion. No chills or night sweats. Afebrile. No tachycardia. No tachypnea. Hemodynamically stable. Maintaining good O2 saturations in the high 90s on 2 L/m per nasal cannula. No leukocytosis. The patient is seen again today 01/02/2018 in follow-up on the selective care unit. She is awake and alert in no acute distress. She denies any worsening shortness of breath, cough or congestion. No chest pain, palpitations lightheadedness or dizziness. She is maintaining good O2 saturations in the mid to upper 90s on 2 L/m per nasal cannula. She's been afebrile. Hemodynamically stable. The patient is seen again today 01/03/2018 in follow-up on the selective care unit. Her discharge was held yesterday due to some issues with hypotension. She is seen today in follow-up awake and alert in no acute distress. She denies any dizziness or lightheadedness. Current blood pressure 99/52. Heart rate 59 respirations 16 temperature is 97.7. She continues to maintain good O2 saturations in the mid 90s on 2 L/m per nasal cannula. She denies any worsening shortness of breath, cough or congestion. No chills or night sweats. Objective - Vital Signs Vital signs: Vital Signs Temp 97.7 F 01/03/18 08:00 Pulse 76 02/17/18 08:26 Resp 16 01/03/18 08:00 BP 99/52 01/03/18 08:00 Pulse Ox 96 01/03/18 08:00 Intake & Output 01/02/18 01/03/18 01/03/18 18:59 06:59 18:59 Intake Total 826 1595 236 Output Total 1150 Balance 826 445 236 Weight 72 kg Intake: IV 1375 0.9 @ 75 1375 Intake, IV Titration 0 Amount Levofloxacin 750Mg-D5w 0 Pmx 750 mg In Dextrose/ Water 1 150ml.bag @ 100 mls/hr IVPB Q24H [facility]IC[facility] Rx#: [id number] Oral 826 220 236 Output: Urine 1150 Other: # Voids 1 1 - Exam GENERAL EXAM: Alert, active, comfortable in no apparent distress. HEAD: Normocephalic. EYES: Normal reaction of pupils, equal size. NOSE: Clear with pink turbinates. THROAT: No erythema or exudates. NECK: No masses, no JVD. CHEST: No chest wall deformity. LUNGS: Equal air entry with no crackles, wheeze, rhonchi or dullness. CVS: S1 and S2 normal with no audible murmur, regular rhythm. ABDOMEN: No hepatosplenomegaly, normal bowel sounds, no guarding or rigidity. SPINE: No scoliosis or deformity SKIN: No rashes CENTRAL NERVOUS SYSTEM: No focal deficits, tone is normal in all 4 extremities. EXTREMITIES: There is no peripheral edema. No clubbing, no cyanosis. Peripheral pulses are intact. - Labs CBC & Chem 7: 12/31/17 11:42 12/31/17 11:42 Assessment and Plan Assessment: Impression: #1 Atypical chest pain. No evidence of stress-induced ischemia on dobutamine stress echocardiogram. #2 Chronic obstructive pulmonary disease, oxygen dependent, currently inactive and stable. No evidence of pneumonia clinically or radiographically. Findings of the computed tomography scan are chronic. #3 History of CVA. #4 Hyperlipidemia. #5 Hypertension. #6 Hypothyroidism. #7 Fibromyalgia. #8 Chronic pain syndrome. #9 Coronary artery disease. #10 Severe mitral regurgitation. #11 Moderate pulmonary hypertension. Plan: The patient was seen and evaluated by Dr. Faustin. She is cleared for discharge from the pulmonary standpoint. Medications have been adjusted secondary to her hypotension yesterday. Continue with her home pulmonary medications. She should follow-up in our office in 1-2 weeks' time. She is however encouraged to call sooner with any recurrence of symptoms or other questions or concerns. I, the cosigning physician, performed a history & physical examination of the patient. Lungs sounds are clear. Maintaining good O2 saturations in the 90s on 2 L/m per nasal cannula. I discussed the assessment and plan of care with my nurse practitioner, Mary Cobos. I attest to the above note as dictated by her.
[2018-01-03] MEDS ORDERED: diphenhydrAMINE 25 MG CAP PO PRN (12:23)
--- NOTE | 2018-01-03 12:49 | P.PN ---
Subjective Progress Note Date: 01/03/18 This is a pleasant 72-year-old female who sees Dr. VC Vasquez in the office on a regular basis. Patient has history of hypertension, hyperlipidemia , history of CVA, she is a non-smoker, history of COPD, uses home O2, patient had a dobutamine echocardiographic study performed in January 2017 which was negative for stress-induced ischemia. Patient also underwent a ELLI in February 2017 which revealed thickening and calcification of the anterior mitral leaflet with poor coaptation of the anterior and posterior mitral leaflet, no definite evidence of any mitral valve prolapse or flail mitral leaflet. No evidence of vegetations. Moderate to severe mitral regurg. Left ventricular chamber was normal in size with normal left ventricular systolic function. Left atrium moderately enlarged. Mild to moderate tricuspid regurg. Patient also had an echocardiogram with Doppler study performed in December 2016 which revealed an ejection fraction of 60-65%, severe mitral regurgitation. Patient presents to the hospital on this occasion with symptoms of midsternal chest pressure and heaviness. 2 days ago the patient states she had 3 separate bouts of loose diarrhea stools, a subsequent to that she states she had some nausea and vomiting. Patient then states she had an episode where her upper body from the hips up, including bilateral arms became extremely numb and weak. She had some mild associated dizziness. She then developed chest pressure and heaviness midsternal, mild associated shortness of breath. And it was for this reason that she came to the emergency room for further evaluation. EKG performed on arrival here showed a normal sinus rhythm with no acute changes. Chest x-ray reveals chronic parenchymal changes. Patchy bibasilar densities largely stable as compared with prior chest x-ray. However left lower lung density has increased. This could represent pneumonia. CAT scan of the brain was performed which did not reveal any acute intracranial abnormality. patient underwent dobutamine stress echo that showed no evidence of ischemia. the patient was to be discharged however is being held up due to low blood pressure. Patient is asymptomatic at this time. 01/03/2018 Patient seen and examined this morning, feeling well. She was kept in the hospital yesterday because of hypotension and her blood pressure today is 118/ 60. From our perspective she should be able to be discharged today Objective - Vital Signs Vital signs: Vital Signs Temp 97.8 F 01/03/18 12:00 Pulse 66 01/03/18 12:00 Resp 16 01/03/18 12:00 BP 94/55 01/03/18 12:00 Pulse Ox 96 01/03/18 12:00 Intake & Output 01/02/18 01/03/18 01/03/18 18:59 06:59 18:59 Intake Total 826 1595 466 Output Total 1150 Balance 826 445 466 Weight 72 kg Intake: IV 1375 0.9 @ 75 1375 Intake, IV Titration 0 Amount Levofloxacin 750Mg-D5w 0 Pmx 750 mg In Dextrose/ Water 1 150ml.bag @ 100 mls/hr IVPB Q24H [facility] Rx#: [id number] Oral 826 220 466 Output: Urine 1150 Other: # Voids 1 1 - Exam PHYSICAL EXAMINATION: HEENT: [Head is atraumatic, normocephalic. Pupils equal, round. Neck is supple. There is no elevated jugular venous pressure.] HEART EXAMINATION: [Heart S1, S2 systolic murmur is heard. No murmur or gallop heard.] CHEST EXAMINATION:[ Lungs are clear to auscultation and precussion. No chest wall tenderness is noted on palpation or with deep breathing.] ABDOMEN: [ Soft, nontender. Bowel sounds are heard. No organomegaly noted]. EXTREMITIES:[ 2+ peripheral pulses with no evidence of peripheral edema and no calf tenderness noted]. NEUROLOGIC [patient is awake, alert and oriented -3.] . - Labs CBC & Chem 7: 12/31/17 11:42 12/31/17 11:42 Assessment and Plan Plan: Assessment and plan #1 chest pain, with some atypical features for acute coronary syndrome. Troponins negative 3. EKG shows normal sinus rhythm with no acute changes. Dobutamine echocardiographic study performed in January 2017 negative for any reversible ischemia #2 moderate to severe mitral regurg #3 hypertension #4 hyperlipidemia #5 prior history of smoking, patient quit smoking approximately 20 years ago #6COPD with home O2 use #7 prior CVA #8 recent diarrhea with associated nausea and vomiting #9 focal left lower lung density, possible pneumonia, on IV antibiotics Plan From cardiology's perspective, patient may be able to be discharged home today. We will make her a follow-up appointment in the office post discharge. DNP note has been reviewed, I agree with a documented findings and plan of care. Patient was seen and examined.
[2018-01-03] MEDS: SODIUM CHLORIDE 0.9% 1,000 ML IV SCH ×2 (14:23→15:07)
[2018-01-03] MEDS: LEVOFLOXACIN 750 MG TAB PO SCH (15:04)
[2018-01-03] MEDS: ATORVASTATIN 10 MG TAB PO SCH (20:47)
--- NOTE | 2018-01-03 22:43 | PN ---
PROGRESS NOTE DATE OF SERVICE: 01/03/2018 Patient is being followed for Dr. Sequeira. A 72-year-old female patient who is seen for followup in her room. The patient was supposed to be discharged yesterday, but was kept in the hospital because she was hypotensive. Blood pressure is 118/60, but patient continues to continue to feel a little dizzy today. VITAL SIGNS: Temperature of 99.8, pulse 66, respirations 16, blood pressure 94/55, O2 saturation 96. HEENT: Atraumatic, normocephalic. Pupils equal and react to light. Extraocular movements intact. Buccal mucosa is fair. Neck is supple. No goiter or lymphadenopathy. JVD is negative. No carotid bruit heard. Lungs are clear to auscultate. No rales, rhonchi or wheezes. Heart is regular rate and rhythm without any murmurs or gallop rhythm. Abdomen is soft, nontender, nondistended. Bowel sounds positive. EXTREMITIES: No edema, clubbing or cyanosis. Pulses are palpable at 2+. NEUROLOGICAL: Patient is awake, alert, oriented x3. No gross motor or sensory deficit. LABS: CBC: White blood count 6.2, hemoglobin 15.1, hematocrit 45, platelet count of 152. Chemical profile: Sodium 142, potassium 4.8, chloride 105, bicarb 27, BUN 10, creatinine 0.7, glucose 111. ASSESSMENT: 1. Chest pain which is atypical. Acute coronary syndrome ruled out. Cardiology is following. Dobutamine stress test done in January 2017 was negative for any reversible ischemia. The patient does have moderate to severe mitral regurgitation, hypertension and hyperlipidemia. Cardiology continues to follow the patient and they are recommending discharge once the patient's vital signs are improved. 2. Pneumonia versus pneumonitis, responded well to IV antibiotics. The patient is on oral antibiotics and tolerating well. 3. Diastolic congestive heart failure with ejection fraction 55%-60%. 4. Hyperlipidemia, clinically stable. 5. Chronic fibromyalgia under control. 6. Restless legs syndrome. 7. Hypothyroidism. 8. Chronic obstructive pulmonary disease. 9. Gait dysfunction. Patient uses a walker. 10.Chronic hypoxemic respiratory failure. Patient remains on 2-3L of oxygen. The patient's MANSI inhibitors have been put on hold. Tolerating oral antibiotics well. Will continue with IV fluids for another 24 hours and discharge once the patient is clinically stable and no further complaints of dizziness. MMODL / IJN: [id number] /
[2018-01-04 00:18] VITALS: RESP 18
[2018-01-04 01:08] LABS: Appearance,Urine Clear (Clear); Bilirubin,Urine Negative (Negative); Blood,Urine Negative (Negative); Color,Urine Light Yellow; Glucose,Urine (UA) Negative (Negative); Ketones,Urine Negative (Negative); Leukocyte Esterase,Urine Negative (Negative); Nitrite,Urine Negative (Negative); Protein,Urine Negative (Negative); Specific Gravity,Urine 1.004 (1.001-1.035); Squamous Epithelial Cell,Urine 1 /hpf (0-4); Urobilinogen,Urine <2.0 mg/dL (<2.0); WBC,Urine <1 /hpf (0-5)
[2018-01-04] MEDS: MELATONIN 5 MG TABLET PO PRN (02:05)
[2018-01-04] MEDS: LEVOTHYROXINE 112 MCG TAB PO SCH (06:17)
[2018-01-04 07:10] LABS: Basophils % (A) 1 %; Eosinophils # (A) 0.1 k/uL (0-0.7); Eosinophils % (A) 2 %; HCT 41.2 % (34.0-46.0); HGB 12.8 gm/dL (11.4-16.0); Lymphocytes # (A) 0.9 k/uL (1.0-4.8); Lymphocytes % (A) 19 %; MCH 31.2 pg (25.0-35.0); MCHC 31.1 g/dL (31.0-37.0); MCV 100.3 fL (80.0-100.0); Mean Platelet Volume 7.6; Monocytes # (A) 0.4 k/uL (0-1.0); Monocytes % (A) 8 %; Neutrophils # (A) 3.3 k/uL (1.3-7.7); Neutrophils % (A) 68 %; Platelet Count 130 k/uL (150-450); RBC 4.11 m/uL (3.80-5.40); RDW 13.3 % (11.5-15.5); WBC 4.8 k/uL (3.8-10.6)
[2018-01-04 07:20] LABS: Anion Gap 8 mmol/L; Blood Urea Nitrogen 11 mg/dL (7-17); Calcium 8.6 mg/dL (8.4-10.2); Carbon Dioxide 30 mmol/L (22-30); Chloride 101 mmol/L (98-107); Glucose 131 mg/dL (74-99); Potassium 4.2 mmol/L (3.5-5.1); Sodium 139 mmol/L (137-145)
[2018-01-04] MEDS: BUDESONIDE 1 MG/2 ML NEBU INHALATION SCH (07:51)
[2018-01-04] MEDS: IPRATROPIUM 0.5 MG/2.5 ML NEBU INHALATION SCH ×2 (07:51→12:56)
[2018-01-04] MEDS: FLUoxetine HCL 20 MG CAP PO SCH (09:07)
[2018-01-04] MEDS: ENOXAPARIN 40 MG/0.4 ML SYRINGE SQ SCH (09:07)
[2018-01-04] MEDS: FLUTICASONE 50MCG/SPRAY NASAL 16GM EA NOSTRIL SCH (09:08)
[2018-01-04] MEDS: SPIRONOLACTONE 25 MG TAB PO SCH (09:08)
[2018-01-04] MEDS: MAGNESIUM OXIDE 400 MG TAB PO SCH (09:08)
[2018-01-04] MEDS: DIPYRIDAMOLE-ASPIRIN 200-25 MG 1 EACH CPMP.12HR PO SCH (09:08)
[2018-01-04] MEDS: PREGABALIN 75 MG CAP PO SCH (12:21)
[2018-01-04 13:10] VITALS: PULSE 82
--- NOTE | 2018-01-04 13:37 | P.PN ---
Subjective Progress Note Date: 01/04/18 Principal diagnosis: Atypical chest pain This is a very pleasant 72-year-old female patient who follows with Dr. Alissa Ulrich as her primary care physician. She has a history of coronary disease, congestive heart failure, CVA/TIA, fibromyalgia, hyperlipidemia, hypertension, hypothyroidism, chronic back pain, restless leg syndrome. She also has a remote history of chronic tobacco dependence for approximately 15 years however quit 20 years ago. She does have COPD and follows with Dr. Faustin in our office for the same. She presented to the emergency room yesterday with complaints of chest pressure and tingling and numbness of her bilateral arms. She states she had been sick for a few days with some nausea, vomiting and diarrhea. Her troponins were negative 3. Influenza screen was negative. Dobutamine stress test performed today was negative for cardiac ischemia. A CT angiogram was performed and revealed some possible areas of pneumonitis versus edema. She denied any worsening shortness of breath, cough or congestion. No chills or night sweats. Afebrile. No tachycardia. No tachypnea. Hemodynamically stable. Maintaining good O2 saturations in the high 90s on 2 L/m per nasal cannula. No leukocytosis. The patient is seen again today 01/02/2018 in follow-up on the selective care unit. She is awake and alert in no acute distress. She denies any worsening shortness of breath, cough or congestion. No chest pain, palpitations lightheadedness or dizziness. She is maintaining good O2 saturations in the mid to upper 90s on 2 L/m per nasal cannula. She's been afebrile. Hemodynamically stable. The patient is seen again today 01/03/2018 in follow-up on the selective care unit. Her discharge was held yesterday due to some issues with hypotension. She is seen today in follow-up awake and alert in no acute distress. She denies any dizziness or lightheadedness. Current blood pressure 99/52. Heart rate 59 respirations 16 temperature is 97.7. She continues to maintain good O2 saturations in the mid 90s on 2 L/m per nasal cannula. She denies any worsening shortness of breath, cough or congestion. No chills or night sweats. Reevaluated today on 01/04/2018, patient is doing much better today, her hypotension has resolved, I held her blood pressure medications, patient denies any cough no wheezing no shortness of breath and no chest pain. Labs from today were reviewed normal CBC noted normal basic metabolic profile noted blood sugar is 131. Objective - Vital Signs Vital signs: Vital Signs Temp 97.8 F 01/04/18 09:10 Pulse 82 01/04/18 13:09 Resp 18 01/04/18 09:10 BP 102/57 01/04/18 09:10 Pulse Ox 96 01/04/18 09:10 Intake & Output 01/03/18 01/04/18 01/04/18 18:59 06:59 18:59 Intake Total 766 1200 Output Total 900 Balance 766 300 Weight 81.9 kg Intake: IV 1200 0.9 @ 75 1200 Oral 766 Output: Urine 900 Other: Voiding Method Bedside Commode Bedside Commode - Exam GENERAL EXAM: Alert, active, comfortable in no apparent distress. HEAD: Normocephalic. EYES: Normal reaction of pupils, equal size. NOSE: Clear with pink turbinates. THROAT: No erythema or exudates. NECK: No masses, no JVD. CHEST: No chest wall deformity. LUNGS: Equal air entry with no crackles, wheeze, rhonchi or dullness. CVS: S1 and S2 normal with no audible murmur, regular rhythm. ABDOMEN: No hepatosplenomegaly, normal bowel sounds, no guarding or rigidity. SPINE: No scoliosis or deformity SKIN: No rashes CENTRAL NERVOUS SYSTEM: No focal deficits, tone is normal in all 4 extremities. EXTREMITIES: There is no peripheral edema. No clubbing, no cyanosis. Peripheral pulses are intact. - Labs CBC & Chem 7: 01/04/18 06:42 01/04/18 06:42 Labs: Abnormal Lab Results - Last 24 Hours (Table) 01/04/18 01/04/18 Range/Units 06:42 06:42 MCV 100.3 H (80.0-100.0) fL Plt Count 130 L (150-450) k/uL Lymphocytes # 0.9 L (1.0-4.8) k/uL Glucose 131 H (74-99) mg/dL Assessment and Plan Assessment: #1 Atypical chest pain. No evidence of stress-induced ischemia on dobutamine stress echocardiogram. #2 Chronic obstructive pulmonary disease, oxygen dependent, currently inactive and stable. No evidence of pneumonia clinically or radiographically. Findings of the computed tomography scan are chronic. #3 History of CVA. #4 Hyperlipidemia. #5 Hypertension. #6 Hypothyroidism. #7 Fibromyalgia. #8 Chronic pain syndrome. #9 Coronary artery disease. #10 Severe mitral regurgitation. #11 Moderate pulmonary hypertension. Recommendation: Patient was cleared from my perspective for discharge planning, follow-up on outpatient basis. Time with Patient: Less than 30
[2018-01-04 14:18] VITALS: BP 87/50; TEMP 97.7
--- NOTE | 2018-02-01 22:54 | DS ---
DISCHARGE SUMMARY DATE OF ADMISSION: 12/31/2017. DATE OF DISCHARGE: 01/04/2018. ADMISSION DIAGNOSES: 1. Atypical chest pain, rule out acute coronary syndrome. 2. Chronic obstructive pulmonary disease exacerbation, possible pneumonia. 3. History of cerebrovascular accident. 4. Hypertension. 5. Hyperlipidemia. 6. Hypothyroidism. BRIEF HISTORY: Patient is a 72-year-old female patient with history of coronary artery disease, CHF, CVA/TIA, presented to the emergency room with a complaint of chest pressure and tingling and numbness of bilateral arms. She said she had been sick for a few days with some nausea, vomiting, and diarrhea, so she presented to the ED. BRIEF HOSPITAL COURSE: The patient was admitted to cardiac telemetry. Cardiac enzymes and EKG was monitored. Patient's troponins were negative x3. The patient also had influenza test done in the ED which was negative. Cardiology was consulted. The patient was recommended a dobutamine stress echo, which was negative for ischemia. She had a CT angiography done for possible pneumonitis versus edema. The CT angiogram did show some areas of pneumonia. PAST MEDICAL HISTORY: Coronary artery disease, history of congestive heart failure, COPD, CVA/TIA, fibromyalgia, hyperlipidemia, hypertension, myocardial infarction, hypothyroidism. HOME MEDICATIONS: Patient is on Prozac 20 mg p.o. daily, Flonase 1 spray each nostril daily, Lasix 20 mg daily, Atrovent nebulizer treatments t.i.d., Mag-Ox 400 mg daily, Aldactone 25 mg daily, fentanyl patch 12 mcg every 72 hours. ALLERGIES: CLINDAMYCIN, NYSTATIN, SULFA, ACRYLATE, OXYCODONE. HOSPITAL COURSE: As indicated above, patient was admitted to cardiac telemetry. Cardiac enzymes and EKG were unremarkable. Dobutamine stress echo was negative. CT angiogram did show some pneumonia. The patient was treated with IV fluids and IV antibiotics. The patient did show marked improvement with that. She was transitioned to oral medications and antibiotics. Cardiology and Pulmonary consultations were done. Plan of care was approved by both services. The patient remained stable. She was planned to be discharged home. On day of admission, patient became extremely hypotensive. She was given some fluid boluses to improve the blood pressure. MANSI inhibitors were put on hold. The patient did respond to this management. She did not have any further complications. She was then discharged home in a stable condition. Discharge date was 01/04/2018. DISCHARGE DIAGNOSES: 1. Pneumonia. Chest pain, acute coronary syndrome ruled out. 2. Acute exacerbation diastolic congestive heart failure. 3. Hyperlipidemia. 4. Restless leg syndrome. 5. Hypothyroidism. 6. Gait dysfunction. 7. Acute chronic hypoxemic respiratory failure. PHYSICAL EXAMINATION: Examination on the day of discharge, vital signs temp is 99.8, pulse 66, respirations 16, blood pressure 94/55, O2 saturation 96%. HEENT: Atraumatic, normocephalic. Pupils equal and react to light. Extraocular movements intact. Buccal mucosa is fair. NECK: Supple. No goiter or lymphadenopathy. JVD is negative. No carotid bruit heard. LUNGS: Clear to auscultate. No rales, rhonchi, or wheezes. HEART: Regular rate and rhythm without any murmurs or gallop rhythm. ABDOMEN: Soft, nontender, nondistended. Bowel sounds positive. EXTREMITIES: No edema, clubbing, cyanosis. DISCHARGE DISPOSITION: Home. Patient was recommended to follow up with primary care physician and primary pizza driver. DISCHARGE MEDICATIONS: 1. Levaquin 750 mg daily for 4 days. 2. Aggrenox 250/200 mg b.i.d. 3. Pulmicort inhaler 1 inhalation b.i.d. 4. Prozac 20 mg daily. 5. Flonase 1 spray each nostril daily. 6. Lasix 20 mg at bedtime. 7. [place] 10/325 mg 1 tablets every 6 hours p.r.n. 8. Atrovent nebulizer treatment inhalation t.i.d. 9. Levothyroxine 112 mcg daily. 10.Mag-Ox 400 mg daily. 11.Lyrica 150 mg t.i.d. 12.Aldactone 25 mg daily. 13.Fentanyl patch 125 mcg every 72 hours. 14.Requip 3 mg t.i.d. 15.Lisinopril. The patient was advised to stop taking lisinopril. Plan to continue all current medications. Follow up with primary care physician and primary pizza driver in 1 to 2 weeks. MMODL / PAULAN: [id number] /
== END 2018-01-04 14:38 | disposition home health service (06) | DRG 194 ==
LOC: EC 11:33 → 6SEL 14:11
PROVIDERS: ADMIT Hospitalist; ATTEND Hospitalist
DX: J18.9 Pneumonia, unspecified organism (principal); J96.11 Chronic respiratory failure with hypoxia; I95.9 Hypotension, unspecified; I27.29 Other secondary pulmonary hypertension; I11.0 Hypertensive heart disease with heart failure; I50.32 Chronic diastolic (congestive) heart failure; I36.1 Nonrheumatic tricuspid (valve) insufficiency; J44.0 Chronic obstructive pulmonary disease with (acute) lower respiratory infection; R07.89 Other chest pain; I25.10 Atherosclerotic heart disease of native coronary artery without angina pectoris; E03.9 Hypothyroidism, unspecified; E78.5 Hyperlipidemia, unspecified; G25.81 Restless legs syndrome; G89.4 Chronic pain syndrome; I25.2 Old myocardial infarction; I34.0 Nonrheumatic mitral (valve) insufficiency; K44.9 Diaphragmatic hernia without obstruction or gangrene; M79.7 Fibromyalgia; F32.9 Major depressive disorder, single episode, unspecified; M54.2 Cervicalgia; M54.9 Dorsalgia, unspecified; R51 Headache; R11.2 Nausea with vomiting, unspecified; R26.9 Unspecified abnormalities of gait and mobility; Z99.81 Dependence on supplemental oxygen; Z79.899 Other long term (current) drug therapy; Z86.73 Personal history of transient ischemic attack (TIA), and cerebral infarction without residual deficits; Z90.710 Acquired absence of both cervix and uterus; Z98.1 Arthrodesis status; Z96.651 Presence of right artificial knee joint; Z96.611 Presence of right artificial shoulder joint; Z87.891 Personal history of nicotine dependence; Z88.1 Allergy status to other antibiotic agents; Z88.5 Allergy status to narcotic agent; Z88.2 Allergy status to sulfonamides; Z88.8 Allergy status to other drugs, medicaments and biological substances; Z90.49 Acquired absence of other specified parts of digestive tract; Z82.49 Family history of ischemic heart disease and other diseases of the circulatory system
CPT/HCPCS: 36415; 70450; 71046; 71275; 80048; 80053; 81003; 82550; 82553; 83735; 83880; 84484; 85025; 85610; 85730; 87502; 93005; 93017; 93350; 94640; 94760; 96361; 96365; 96375; 99285

== ENCOUNTER 2018-01-06 11:49 | Inpatient (IN) | payer MEDICARE ==
[2018-01-06] MEDS ORDERED: SODIUM CHLORIDE 0.9% 1,000 ML IV STA (12:15)
[2018-01-06] MEDS ORDERED: ONDANSETRON 4 MG/2 ML VIAL IVP STA (12:15)
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
[2018-01-06 12:58] LABS: Amorphous Sediment,Urine Moderate /hpf; Appearance,Urine Cloudy (Clear); Bacteria,Urine Rare /hpf; Bilirubin,Urine Negative (Negative); Blood,Urine Moderate (Negative); Color,Urine Yellow; Glucose,Urine (UA) Negative (Negative); Ketones,Urine 2+ (Negative); Leukocyte Esterase,Urine Negative (Negative); Mucus,Urine Rare /hpf; Nitrite,Urine Negative (Negative); Protein,Urine Trace (Negative); RBC,Urine 3 /hpf (0-5); Specific Gravity,Urine 1.017 (1.001-1.035); Squamous Epithelial Cell,Urine 2 /hpf (0-4); WBC,Urine 1 /hpf (0-5)
[2018-01-06 13:02] LABS: Basophils % (A) 0 %; Eosinophils # (A) 0.1 k/uL (0-0.7); Eosinophils % (A) 1 %; HCT 42.2 % (34.0-46.0); HGB 13.5 gm/dL (11.4-16.0); Lymphocytes # (A) 0.7 k/uL (1.0-4.8); Lymphocytes % (A) 9 %; MCH 31.9 pg (25.0-35.0); MCV 99.7 fL (80.0-100.0); Mean Platelet Volume 8.2; Monocytes # (A) 0.4 k/uL (0-1.0); Monocytes % (A) 4 %; Neutrophils # (A) 6.8 k/uL (1.3-7.7); Neutrophils % (A) 85 %; Platelet Count 143 k/uL (150-450); RBC 4.23 m/uL (3.80-5.40)
[2018-01-06 13:18] LABS: ALT 22 U/L (9-52); AST 21 U/L (14-36); Albumin 3.3 g/dL (3.5-5.0); Alkaline Phosphatase 94 U/L (38-126); Anion Gap 9 mmol/L; Blood Urea Nitrogen 13 mg/dL (7-17); Calcium 8.7 mg/dL (8.4-10.2); Carbon Dioxide 28 mmol/L (22-30); Chloride 105 mmol/L (98-107); Glucose 97 mg/dL (74-99); Magnesium 2.3 mg/dL (1.6-2.3); Potassium 4.3 mmol/L (3.5-5.1); Sodium 142 mmol/L (137-145); Total Bilirubin 0.9 mg/dL (0.2-1.3); Total Protein 5.8 g/dL (6.3-8.2)
[2018-01-06 13:23] LABS: Creatine Kinase 40 U/L (30-135)
[2018-01-06 13:27] LABS: INR 1.2 (<1.2); Prothrombin Time 11.1 sec (9.0-12.0)
--- NOTE | 2018-01-06 13:29 | XR ---
EXAMINATION TYPE: XR chest 2V DATE OF EXAM: 01/06/2018 COMPARISON: Prior chest x-ray 12/31/2017 HISTORY: Weakness, nausea and vomiting, COPD TECHNIQUE: Frontal and lateral views of the chest are obtained. FINDINGS: Postop changes are again noted. There are overlying cardiac leads. The heart is enlarged. Interstitium is increased. No pneumothorax or pleural effusion evident. Pulmonary vascularity mildly prominent. Probable scarring in the left lower lobe again noted. IMPRESSION: Correlate for pulmonary venous hypertension and interstitial edema. Follow-up is recomme nded.
--- NOTE | 2018-01-06 13:31 | XR ---
Abdomen HISTORY: Nausea and vomiting Frontal view of the abdomen submitted on 2 images and correlated to prior exam 05/20/2015 Postop changes again noted to the right hip. Bone mineralization is mildly reduced. Degenerative disc changes are present in the visualized spine, there is an underlying scoliosis. Lung bases show some minimal atelectatic change, surgical ladarius are present at the gastroesophageal junction, right uppe r quadrant, metallic) and in the anterior abdomen as on prior exam. There are some air-filled loops o f small and large bowel. No pneumoperitoneum. No evident bowel obstruction. Some loss of haustral mar kings suspected in the descending colon. IMPRESSION: Correlate for enteritis, colitis. Follow-up as indicated
[2018-01-06 13:37] LABS: Creatine Kinase MB 0.6 ng/mL (0.0-2.4); Troponin I <0.012 ng/mL (0.000-0.034)
[2018-01-06 13:41] LABS: Partial Thromboplastin Time 21.1 sec (22.0-30.0)
[2018-01-06] MEDS ORDERED: NALOXONE 0.4 MG/ML 1 ML VIAL IV PRN (13:44)
[2018-01-06] MEDS ORDERED: NITROGLYCERIN SL TABS 0.4 MG TAB SUBLINGUAL PRN (15:56)
--- NOTE | 2018-01-06 17:09 | CT ---
EXAMINATION TYPE: CT chest wo con DATE OF EXAM: 01/06/2018 COMPARISON: 01/01/2018 HISTORY: Chest pain and cough CT DLP: 387 mGycm. Automated Exposure Control for Dose Reduction was Utilized. TECHNIQUE: CT scan of the thorax is performed without IV contrast. FINDINGS: LUNGS: Multifocal reticulonodular opacities are seen within the lungs, right greater than left predom inating centrally with some nodularity and tree-in-bud opacity in the right upper lobe. Linear pleura l parenchymal scarring is also identified bilaterally. No pulmonary mass is seen. Intrafissural fluid is noted on the left. Prominent subpleural fat is seen. MEDIASTINUM: Lack of IV contrast is noted to limit evaluation for mediastinal and especially hilar ad enopathy. There are no definitive greater than 1 cm hilar or mediastinal lymph nodes. No cardiomega ly or pericardial effusion is seen. Moderate three-vessel coronary calcifications are present. OTHER: There is a small recurrent hiatal hernia despite postsurgical changes of the gastroesophageal junction with herniation of mesenteric fat. Additionally postsurgical changes the right hemidiaphragm are seen with recurrent diaphragmatic herniation measuring 1.6 cm. Cholecystectomy clips are noted w ithin the right upper quadrant. 1 cm right upper pole renal cyst is noted. Low-density left adrenal g land nodule meets criteria for a benign adrenal gland adenoma, lipid rich. There is partial visualiza tion of postsurgical changes of the right humerus and cervical spine. IMPRESSION: 1. Persistent multifocal reticular nodular opacities within both lungs with tree-in-bud opacity withi n the right upper lobe similar to the exam of 01/01/2018 suggesting atypical pneumonitis of infectious or inflammatory etiology. 2. Recurrent hiatal hernia, diaphragmatic hernia, benign right renal cyst, and benign lipid rich adre nal gland adenoma.
[2018-01-06] MEDS: PREGABALIN 75 MG CAP PO SCH ×2 (17:23→19:44)
--- NOTE | 2018-01-06 17:45 | HP ---
HISTORY AND PHYSICAL DATE OF CONSULTATION: 01/06/2018 CHIEF COMPLAINT: Incessant nausea, vomiting, and diminished appetite and feeling sick, cough. HISTORY OF PRESENT ILLNESS: This 72-year-old woman with a past medical history of multiple medical problems including CAD, COPD, CHF, CVA, TIA, fibromyalgia, hypertension, hyperlipidemia, history of pneumonia, history of chronic back pain, DJD being followed by Dr. Alissa Ulrich in the outpatient setting recently was admitted with complaints of weakness and not feeling well. The patient was suspected to have some pneumonia. The patient was given antibiotics. Patient improved significantly. Patient was discharged home but after going home the patient continues to be sick and got worse according to the patient's family, unable to eat and keep anything down. Patient was having incessant vomiting. The patient also had feeling weak and some cough and the patient came to [facility] and was admitted for further evaluation and treatment. The most recent chest x-ray done showed some interstitial edema versus pulmonary hypertension. Ejection fraction was found to be normal during the recent admission. The NT proBNP is not available. There is no history of any fever, rigors or chills. No history of headache, loss of consciousness, seizures at this time. The patient admitted for evaluation and treatment. During the previous admission, pulmonary saw the patient and was thought to have some chronic changes on chest x-ray. PAST MEDICAL HISTORY: History of CAD CHF, COPD, CVA, TIA, hypertension, hyperlipidemia, history of myocardial infarction, DJD. MEDICATIONS: Prior to admission include home medications prior to admission include are: 1. Requip 3 mg p.o. t.i.d. 2. Duragesic patch 1 q.72h hours. 3. Aldactone 25 mg. 4. Zocor 20 mg. 5. Lyrica 150 mg t.i.d. 6. Zofran 4 mg q.8 hours. 7. Nitrostat 0.4 sublingual p.r.n. 8. Magnesium oxide 400 mg daily. 9. Synthroid 112 mcg. 10.Levaquin 750 mg. 11.Atrovent t.i.d. 12.Daisetta 1 tab q.6h. 13.Lasix 20 mg q.h.s. 14.Flonase 1 spray daily. 15.Prozac 20 mg. 16.Pulmicort 1 mg b.i.d. 17.Aggrenox 25 mg p.o. b.i.d. ALLERGIES: CLINDAMYCIN, NYSTATIN, SULFA, TRIMETHOPRIM, OXYCODONE. FAMILY HISTORY: History of myocardial infarction. SOCIAL HISTORY: Previous history of smoking. No history of current smoking. No history of alcohol intake. REVIEW OF SYSTEMS: ENT: Diminished hearing and vision. CARDIOVASCULAR: As mentioned earlier. RESPIRATORY: As mentioned earlier. GI no nausea or vomiting. : No dysuria, or retention. Nervous system: No numbness, generalized weakness. Allergy/ immunology: No asthma or hay fever. MUSCULOSKELETAL: As mentioned earlier. Hematology/oncology: No history of anemia. ENDOCRINE: No history of diabetes, hypothyroidism. Constitutional: As mentioned earlier. Dermatology: Negative. Rheumatology: Negative. Psychiatric: As mentioned earlier. EXAMINATION: The patient is alert and oriented times three. Pulse 80, blood pressure 115/64, respiration 18, temperature 98.1, pulse ox 94% on room air. HEENT is conjunctivae normal. Oral mucosa moist. Neck is no jugular venous distention. No carotid bruit. No lymph node enlargement. Cardiovascular S1-S2 muffled. No S3, no S4. Respiratory: Breath sounds diminished in the bases. A few scattered rhonchi. A few crackles. ABDOMEN: Soft, nontender. No mass palpable. legs no edema and no swelling. NERVOUS SYSTEM: Higher functions as mentioned earlier. Moves all four limbs. No focal deficits Lymphatics: No lymph nodes palpable in the neck, axillae or groin. SKIN: No ulcer, rash or bleeding. LABS: At this time shows CBC with WBC 8, hemoglobin 13.5, platelets 143. INR 1.2. UA noted. ASSESSMENT: 1. Incessant nausea, vomiting, possible acute severe gastritis. 2. Bilateral lung lesions, rule out atypical pneumonia, interstitial pneumonia. 3. Rule out fluid overload. 4. History of congestive heart failure with chronic diastolic dysfunction ejection fraction 50-60%. 5. History of recent early pneumonia. 6. History of coronary artery disease. 7. History of congestive heart failure. 8. History of chronic obstructive pulmonary disease. 9. Cerebrovascular accident/transient ischemic attack. 10.Fibromyalgia. 11.Hyperlipidemia. 12.History of hypertension. 13.History of hypothyroidism. 14.History of myocardial infarction. 15.History of gait dysfunction. 16.History of back surgery, degenerative joint disease. 17.History of thyroidectomy. 18.History of depression. 19.History of claustrophobia. RECOMMENDATIONS AND DISCUSSION: This 72-year-old woman who presented with multiple complex medical issues, we will monitor the patient closely. Continue the current medications, symptomatic treatment, management and recommend bronchodilators and empiric antibiotics. I would recommend ceftriaxone and Zithromax. Pulmonary consultation, and I would also recommend the currently keep the patient n.p.o. except medications and Protonix. Symptomatic treatment. Again, IV fluids. Guarded prognosis because of the multiple complex medical issues and further recommendations to follow. See orders for details. DVT prophylaxis. Discussed with the patient who understands and agrees and further recommendations to follow. Check a serum cortisol level as well. MMODL / IJN: [id number] / EMELINA
[2018-01-06] MEDS: PANTOPRAZOLE 40 MG/10 ML VIAL IVP SCH ×2 (17:48→19:44)
[2018-01-06] MEDS: cefTRIAXone IN SWFI 1,000 MG/10 ML SYRINGE IVP SCH (17:49)
[2018-01-06] MEDS: AZITHROMYCIN 500 MG in SODIUM CHLORIDE 0.9% 250 ML IVPB SCH (17:50)
[2018-01-06] MEDS: METOCLOPRAMIDE 5 MG/ML 2 ML VIAL IVP PRN (17:50)
[2018-01-06] MEDS: SODIUM CHLORIDE 0.9% 1,000 ML IV SCH (19:44)
[2018-01-06] MEDS: HEPARIN SODIUM,PORCINE 5,000 UNIT/ML 1 ML VIAL SQ SCH (19:44)
[2018-01-06] MEDS: ATORVASTATIN 10 MG TAB PO SCH (19:45)
[2018-01-06] MEDS: ALPRAZolam 0.25 MG TAB PO PRN (19:45)
[2018-01-06] MEDS: FUROSEMIDE 20 MG TAB PO SCH (19:45)
[2018-01-06] MEDS: DIPYRIDAMOLE-ASPIRIN 200-25 MG 1 EACH CPMP.12HR PO SCH (19:45)
[2018-01-06] MEDS: HYDROcodone/APAP 10-325MG 1 EACH TAB PO PRN (19:47)
[2018-01-06] MEDS: IPRATROPIUM 0.5 MG/2.5 ML NEBU INHALATION SCH (20:49)
[2018-01-06] MEDS: BUDESONIDE 1 MG/2 ML NEBU INHALATION SCH (20:49)
[2018-01-07] MEDS: SODIUM CHLORIDE 0.9% 1,000 ML IV SCH ×4 (01:10→20:55)
[2018-01-07] MEDS: TEMAZEPAM 15 MG CAP PO PRN ×2 (01:29→23:14)
[2018-01-07] MEDS: HYDROcodone/APAP 10-325MG 1 EACH TAB PO PRN ×4 (01:29→20:47)
[2018-01-07] MEDS: LEVOTHYROXINE 112 MCG TAB PO SCH (05:09)
[2018-01-07] MEDS: ALPRAZolam 0.25 MG TAB PO PRN (05:11)
[2018-01-07 07:19] LABS: Basophils % (A) 0 %; Eosinophils # (A) 0.1 k/uL (0-0.7); Eosinophils % (A) 1 %; HCT 40.7 % (34.0-46.0); HGB 12.7 gm/dL (11.4-16.0); Lymphocytes # (A) 1.1 k/uL (1.0-4.8); Lymphocytes % (A) 16 %; MCH 31.5 pg (25.0-35.0); MCHC 31.3 g/dL (31.0-37.0); MCV 100.6 fL (80.0-100.0); Mean Platelet Volume 7.8; Monocytes # (A) 0.5 k/uL (0-1.0); Monocytes % (A) 7 %; Neutrophils # (A) 5.1 k/uL (1.3-7.7); Neutrophils % (A) 74 %; Platelet Count 144 k/uL (150-450); RBC 4.04 m/uL (3.80-5.40); RDW 13.1 % (11.5-15.5); WBC 6.8 k/uL (3.8-10.6)
[2018-01-07 07:43] LABS: Anion Gap 7 mmol/L; Blood Urea Nitrogen 12 mg/dL (7-17); Carbon Dioxide 27 mmol/L (22-30); Chloride 107 mmol/L (98-107); Glucose 84 mg/dL (74-99); Sodium 141 mmol/L (137-145)
[2018-01-07] MEDS: BUDESONIDE 1 MG/2 ML NEBU INHALATION SCH ×2 (08:25→19:42)
[2018-01-07] MEDS: IPRATROPIUM 0.5 MG/2.5 ML NEBU INHALATION SCH ×3 (08:26→19:43)
[2018-01-07] MEDS: DIPYRIDAMOLE-ASPIRIN 200-25 MG 1 EACH CPMP.12HR PO SCH ×2 (09:23→20:48)
[2018-01-07] MEDS: PANTOPRAZOLE 40 MG/10 ML VIAL IVP SCH ×2 (09:24→20:49)
[2018-01-07] MEDS: FLUTICASONE 50MCG/SPRAY NASAL 16GM EA NOSTRIL SCH (09:53)
[2018-01-07] MEDS: PREGABALIN 75 MG CAP PO SCH ×3 (09:53→20:42)
[2018-01-07] MEDS: HEPARIN SODIUM,PORCINE 5,000 UNIT/ML 1 ML VIAL SQ SCH ×2 (09:53→20:52)
[2018-01-07] MEDS: cefTRIAXone IN SWFI 1,000 MG/10 ML SYRINGE IVP SCH (09:54)
[2018-01-07] MEDS: SPIRONOLACTONE 25 MG TAB PO SCH (09:54)
[2018-01-07] MEDS: FLUoxetine HCL 20 MG CAP PO SCH (09:54)
--- NOTE | 2018-01-07 11:18 | ECHOF ---
Referral Reason:pneumonia?? MEASUREMENTS -------- HEIGHT: 152.4 cm WEIGHT: 78.9 kg BP: 90/56 RVIDd: 2.2 cm (< 3.3) IVSd: 0.9 cm (0.6 - 1.1) LVIDd: 4.2 cm (3.9 - 5.3) LVPWd: 0.9 cm (0.6 - 1.1) IVSs: 1.3 cm LVIDs: 2.4 cm LVPWs: 1.3 cm LAESV Index (A-L): 32.17 ml/m Ao Diam: 2.6 cm (2.0 - 3.7) AV Cusp: 1.2 cm (1.5 - 2.6) LA Diam: 3.9 cm (2.7 - 3.8) MV EXCURSION: 6.941 mm (> 18.000) MV EF SLOPE: 32 mm/s (70 - 150) EPSS: 0.8 cm MV E Obey: 1.95 m/s MV DecT: 480 ms MV A Obey: 1.54 m/s MV E/A Ratio: 1.26 AV maxP.66 mmHg AV meanP.60 mmHg RAP: 5.00 mmHg RVSP: 22.97 mmHg FINDINGS -------- Sinus rhythm. This was a technically good study. The left ventricular size is normal. Left ventricular wall thickness is normal. Overall left vent ricular systolic function is low-normal with, an EF between 50 - 55 %. Left ventricular fillimg pre ssure cannot be estimated due to severe mitral annular calcification. The right ventricle is normal in size and function. LA is midly dilated 29-33ml/m2. The right atrium is normal in size. Aortic valve is trileaflet and is mildly thickened. There is mild aortic stenosis present. Peak/m mayur gradient across the Aortic Valve is 14.66mmHg / 8.60mmHg. The mitral valve leaflets are mildly thickened. Mild mitral annular calcification present. Severe mitral regurgitation is present. The peak and mean MV gradients are 13.28mmHg 4.89mmHg as measure d by doppler. Moderate mitral stenosis. Mild tricuspid regurgitation present. The right ventricular systolic pressure, as measured by Doppl er, is 22.97mmHg. Pulmonic valve appears structurally normal. The aortic root, ascending aorta and aortic arch are normal. Normal inferior vena cava with normal inspiratory collapse consistent with estimated right atrial pre ssure of 5 mmHg. The pericardium is normal. CONCLUSIONS -------- 1. Sinus rhythm. 2. This was a technically good study. 3. The left ventricular size is normal. 4. Left ventricular wall thickness is normal. 5. Overall left ventricular systolic function is low-normal with, an EF between 50 - 55 %. 6. The right ventricle is normal in size and function. 7. LA is midly dilated 29-33ml/m2. 8. The right atrium is normal in size. 9. Aortic valve is trileaflet and is mildly thickened. 10. There is mild aortic stenosis present. 11. Peak/mean gradient across the Aortic Valve is 14.66mmHg / 8.60mmHg. 12. The mitral valve leaflets are mildly thickened. 13. Mild mitral annular calcification present. 14. Severe mitral regurgitation is present. 15. The peak and mean MV gradients are 13.28mmHg 4.89mmHg as measured by doppler. 16. Moderate mitral stenosis. 17. Mild tricuspid regurgitation present. 18. The right ventricular systolic pressure, as measured by Doppler, is 22.97mmHg. 19. Pulmonic valve appears structurally normal. 20. The aortic root, ascending aorta and aortic arch are normal. 21. Normal inferior vena cava with normal inspiratory collapse consistent with estimated right atrial pressure of 5 mmHg. 22. The pericardium is normal. CAREER TECHNICAL EDUCATION TEACHER: Jayla Moreau RDCS
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
[2018-01-07] MEDS: MAGNESIUM OXIDE 400 MG TAB PO SCH (15:38)
[2018-01-07] MEDS: HYDROCORTISONE SUCCINATE 100 MG/2 ML VIAL IV SCH ×2 (17:02→23:15)
[2018-01-07] MEDS: AZITHROMYCIN 500 MG in SODIUM CHLORIDE 0.9% 250 ML IVPB SCH (17:26)
[2018-01-07] MEDS: diphenhydrAMINE 25 MG CAP PO PRN (20:47)
[2018-01-07] MEDS: FUROSEMIDE 20 MG TAB PO SCH (20:48)
[2018-01-07] MEDS: ATORVASTATIN 10 MG TAB PO SCH (20:48)
--- NOTE | 2018-01-08 02:31 | PN ---
PROGRESS NOTE DATE OF SERVICE: 01/07/2018 This 72-year-old woman was admitted with multiple respiratory symptomatology was thought to have multifocal densities suggestive of atypical pneumonia. The patient is been closely monitored. A 2D echo with Doppler was done which showed normal ejection fraction, severe mitral regurgitation and moderate mitral stenosis. No chest pain. No palpitations. No fever. EXAM: Alert and oriented x3. Pulse 62, blood pressure 90/56, respirations 16, temperature 97.2, pulse ox 94% on 2 L. HEENT: Conjunctivae normal. Neck is no jugular venous distention. Cardiovascular: S1, S2 muffled. Respiratory: Breath sounds diminished in the bases. A few scattered rhonchi and crackles. Abdomen is soft, nontender. Legs are no edema, no swelling. Central nervous system : No focal deficits. LABS: Platelets 144 otherwise CMP noted and cortisol is only 5. Influenza is negative. PAST MEDICAL HISTORY: Reviewed. REVIEW OF SYSTEMS: Cardiovascular: No angina or palpitations. Respiration: As mentioned earlier. GI as mentioned earlier. no dysuria. Central nervous system: No numbness, weakness. CURRENT MEDICATIONS ARE: 1. [place] 10 mg q.i.d. p.r.n. 2. Xanax 0.2 t.i.d. 3. Lipitor. 4. Zithromax. 5. Pulmicort. 6. Rocephin. 7. Aggrenox. 8. Duragesic patch. 9. Flonase. 10.Lasix. 11.P.r.n. medication. 12.Heparin. 13.Solu-Cortef. ASSESSMENT: 1. Incessant nausea, vomiting, and possible acute gastritis. 2. Bilateral lung lesions nodular, possible atypical pneumonia, interstitial pneumonia. 3. Low serum cortisol level, rule out Addisoni's disease. 4. Congestive heart failure with chronic diastolic dysfunction ejection fraction 50% to 60%. 5. History of recent early pneumonia. 6. History of coronary artery disease. 7. History of congestive heart failure. 8. History of chronic obstructive pulmonary disease. 9. History of cerebrovascular accident, transient ischemic attack. 10.History of fibromyalgia. 11.Hyperlipidemia. 12.Hypertension. 13.Hypothyroidism. 14.History of myocardial infarction. 15.History of gait dysfunction. 16.History of back surgery, degenerative joint disease. 17.History of thyroidectomy. 18.Depression. 19.History of claustrophobia. RECOMMENDATIONS AND DISCUSSION: Recommend to continue current management and symptomatic treatment. I would also recommend a CT stimulation test. Other than that, continue the broad-spectrum IV antibiotics. I would continue with Zithromax and Rocephin combination and follow the cultures. Closely follow. DVT prophylaxis. Closely follow with Dr. Faustin. Continue the rest of the medications. Guarded prognosis because of multiple complex medical issues. Further recommendations to follow. MMODL / IJN: [id number] / EMELINA
--- NOTE | 2018-01-08 04:43 | CONS ---
CONSULTATION DATE OF SERVICE: 01/07/2018. REASON FOR CONSULTATION: Abnormal x-ray and CT and question of pneumonia. HISTORY OF PRESENT ILLNESS: The patient is a 72-year-old female presenting to the ER at [facility] on the December with chief complaints of nausea, vomiting, decreased appetite, and she is complaining of some chest pressure. Apparently the patient was admitted with similar symptoms from 12/31 to 01/04/2018. The patient said that she did have symptoms of not feeling well, unable to keep anything down, no appetite and heavy pressure on the anterior chest area for the last that has been getting worse for the last 3 days prior to presentation to the hospital. Pressure with moderate intensity almost 6 to 7/10, and no radiation. She did have some shortness of breath with minimal exertion. Did have very mild cough not bringing up any sputum. Denies having any URI symptoms. No significant abdominal pain or any diarrhea. No burning or frequency of urine. With these symptoms, the patient was brought to the ER with the patient has been evaluated by the ER physician. The patient did have a chest x-ray that was suggestive of correlate for pulmonary venous hypertension, interstitial edema. No consolidation reported. The patient did have a KUB x-ray correlate for enteritis/colitis. Followup is recommended. The patient subsequently did have a CT of the chest done which shows multifocal right opacity seen within the lungs, right greater than left, predominantly centrally and opacity right upper lobe. has not changed from her previous CT on 01/01/2018. The patient has been admitted to the hospital. Infectious Disease was consulted for further recommendation regarding antibiotic therapy. The patient has not had any vomiting since morning. REVIEW OF SYSTEMS: Constitutional positive for weakness. No fever has been recorded. Eyes: No complaint. ENT no complaint. Respiratory as per HPI. Cardiovascular: No complaint. Genitourinary no complaint. GASTROINTESTINAL: As per HPI. Musculoskeletal no complaint. Integumentary no complaint. Psychological no complaint. Endocrine no complaint. Neurological: No complaint. PAST MEDICAL HISTORY: Significant for coronary artery disease, heart failure, COPD, CVA, TIA, fibromyalgia, hypertension, hyperlipidemia, hypothyroidism, chronic back pain, restless legs syndrome. PAST SURGICAL HISTORY: Adenoidectomy, appendectomy, back surgery, cholecystectomy, hysterectomy, joint replacement, tonsillectomy tubal ligation, thyroidectomy, right shoulder replacement. Right knee replacement. SOCIAL HISTORY: Remote history of smoking. No drinking or drug use. FAMILY HISTORY: Father history of [place]. ALLERGIES: TO CLINDAMYCIN, SULFA, TRIMETHOPRIM AND OXYCODONE. MEDICATIONS: The patient is currently on Restoril, Aldactone, Requip, Lyrica, Protonix and Zofran, Nitrostat, Narcan. Rocephin, Zithromax, Lipitor, Xanax, Lesage. EXAMINATION: Blood pressure is 90/57 with a pulse of 62, temperature 97.2. He is 95% on 2 L nasal cannula. General description is an elderly-aged female lying in bed in no distress. No tachypnea or accessory muscle of respiration use. HEENT: Shows no pallor or scleral icterus. Oral mucous membranes dry. No pharyngeal erythema or thrush. Neck trachea central. No thyromegaly. Lungs unlabored breathing, decreased intensity. No wheeze or crackle. Heart S1-S2 regular rate and rhythm. ABDOMEN: Soft, no tenderness. No guarding. No rigidity. EXTREMITIES: No edema of feet. Skin examination no rash or mass palpable. Neurological: Patient is awake, alert, oriented times three. Mood and affect normal. LABS: Hemoglobin is 12.7, white count 6.8. BUN of 12, creatinine 0.77. Electrolytes have been normal. Liver enzymes are normal. Lactic acid 1.2. Urine did show some hematuria. Influenza serology was negative. Blood culture obtained currently pending. CT report as well as x-ray report as mentioned above. DIAGNOSTIC IMPRESSION AND PLAN: 1. The patient with abnormal CT suggestive of a mild opacity with question of possible atypical infection. The patient is currently with no fever and no elevated white count. She did have some shortness of breath. Very minimal cough and no sputum production may be related to possible fibrotic malignancies rather than infectious etiology. The patient currently no systemic symptoms. 2. Patient with nausea and vomiting. Positive diarrhea could be related to acute gastritis, possible viral etiology. PLAN: 1. Urine for Legionella antigen and mycoplasma serology has been requested, those will be followed. 2. Will discuss with pulmonary if bronchoscopy and biopsy may be of benefit with coming up with more accurate diagnosis at which time a bronchial wash should be obtained as well. 3. May continue with a short course of Rocephin and Zithromax while waiting for the culture to finalize. 4.for underlying nausea, vomiting, if the patient having diarrhea, stool studies will be requested. 5. We will follow up on the clinical condition and further adjust medication if needed. Thank you for this consultation. Will follow this patient along with you. WILLIE / PAULAN: [id number] / MTDD
[2018-01-08] MEDS: HYDROcodone/APAP 10-325MG 1 EACH TAB PO PRN ×3 (05:19→18:01)
[2018-01-08] MEDS: SODIUM CHLORIDE 0.9% 1,000 ML IV SCH ×3 (05:45→17:00)
[2018-01-08] MEDS: LEVOTHYROXINE 112 MCG TAB PO SCH (05:45)
[2018-01-08] MEDS: BUDESONIDE 1 MG/2 ML NEBU INHALATION SCH ×2 (07:50→21:21)
[2018-01-08] MEDS: IPRATROPIUM 0.5 MG/2.5 ML NEBU INHALATION SCH ×3 (07:50→21:21)
[2018-01-08 08:29] LABS: Basophils % (A) 0 %; Eosinophils % (A) 1 %; HCT 43.9 % (34.0-46.0); HGB 13.5 gm/dL (11.4-16.0); Hypochromasia Slight; Lymphocytes # (A) 0.7 k/uL (1.0-4.8); Lymphocytes % (A) 12 %; MCH 31.7 pg (25.0-35.0); MCHC 30.9 g/dL (31.0-37.0); MCV 102.9 fL (80.0-100.0); Macrocytosis Slight; Monocytes # (A) 0.2 k/uL (0-1.0); Monocytes % (A) 3 %; Neutrophils # (A) 4.9 k/uL (1.3-7.7); Neutrophils % (A) 84 %; Platelet Count 124 k/uL (150-450); RBC 4.27 m/uL (3.80-5.40); RDW 13.3 % (11.5-15.5); WBC 5.8 k/uL (3.8-10.6)
[2018-01-08 08:51] LABS: Anion Gap 11 mmol/L; Blood Urea Nitrogen 17 mg/dL (7-17); Calcium 8.3 mg/dL (8.4-10.2); Carbon Dioxide 28 mmol/L (22-30); Chloride 104 mmol/L (98-107); Glucose 139 mg/dL (74-99); Sodium 143 mmol/L (137-145)
[2018-01-08] MEDS: PANTOPRAZOLE 40 MG/10 ML VIAL IVP SCH ×2 (09:24→20:14)
[2018-01-08] MEDS: HEPARIN SODIUM,PORCINE 5,000 UNIT/ML 1 ML VIAL SQ SCH ×2 (09:24→20:14)
[2018-01-08] MEDS: HYDROCORTISONE SUCCINATE 100 MG/2 ML VIAL IV SCH ×2 (09:24→17:04)
[2018-01-08] MEDS: DIPYRIDAMOLE-ASPIRIN 200-25 MG 1 EACH CPMP.12HR PO SCH (09:24)
[2018-01-08] MEDS: FLUTICASONE 50MCG/SPRAY NASAL 16GM EA NOSTRIL SCH (09:24)
[2018-01-08] MEDS: PREGABALIN 75 MG CAP PO SCH ×3 (09:25→20:13)
[2018-01-08] MEDS: SPIRONOLACTONE 25 MG TAB PO SCH (09:25)
[2018-01-08] MEDS: FLUoxetine HCL 20 MG CAP PO SCH (09:25)
[2018-01-08] MEDS: cefTRIAXone IN SWFI 1,000 MG/10 ML SYRINGE IVP SCH (09:25)
--- NOTE | 2018-01-08 10:56 | P.PN ---
Subjective Progress Note Date: 01/08/18 Principal diagnosis: Intractable nausea, vomiting. Multifocal nodular opacities in both lungs suggesting atypical pneumonitis or inflammatory etiology Jessica is a 72-year-old white female patient of Dr. Ulrich, who presented to the emergency department on 01/06/2018 at 1149 with complaints of intractable nausea, vomiting, some chills, dyspnea, constant chest discomfort over upper sternal area since Friday of this week. She states she does have some coughing spells, but her cough is dry, she is dyspneic on a regular basis due to her history of CHF and COPD, and this has not significantly changed from her baseline. She was just hospitalized for atypical chest pain, and complaints of nausea vomiting and diarrhea and discharged home on Friday01/04/2018 in stable condition. Her COPD was stable during that admission. During that stay her troponins were negative 3, influenza screen was negative. Dobutamine stress test was negative for cardiac ischemia. Patient had a ELLI on 03/11/2017 to assess the mechanism of the mitral regurgitation. It showed thickening and calcification of anterior mitral leaflet with poor coaptation of the anterior and posterior mitral leaflet. There was no definite evidence of any vegetation nor was there any definite evidence of any mitral valve prolapse or flail mitral leaflet. There was moderate to severe mitral regurgitation, and there was mild to moderate tricuspid regurgitation noted. CT angiogram was positive for areas of pneumonitis versus or edema. Patient did not have any acute respiratory symptoms during that stay, no fever, no chills, no chest congestion or increased sputum production. She was discharged home on Levaquin, oral Lasix 20 mg at bedtime, Pulmicort nebIlan shelby and was instructed to follow-up with Dr. Ricketts in the office. Patient does have an underlying history of COPD , has home oxygen at 2-3 L per nasal cannula at bedtime and as needed, coronary artery disease, congestive heart failure, CVA/TIA, fibromyalgia, hyperlipidemia , hypertension, hypothyroidism, chronic back pain, restless leg syndrome. She did have cervical neck fusions, right shoulder replacement, right knee replacement surgeries, bilateral, cataract surgeries, appendectomy and cholecystectomy, Gogo fundoplication. She had an EGD in the past for her symptoms of nausea vomiting, weight loss, which did not show any evidence of peptic ulcer disease or Kristy. During this admission, lab work is negative for any evidence of leukocytosis, WBC is 8.0, hemoglobin is 13.5, INR is 1.2, electrolytes are within normal limits, renal profile is normal, liver enzymes within normal limits, troponin was negative 1, proBNP was elevated at 1360, C-reactive protein was 25.1, ESR was 39, plasma lactic acid was within normal limits at 1.2. Urinalysis showed trace protein, 2+ ketones, and moderate amount of blood. Leukocyte esterase was negative, there was a rare bacteria and rare mucus. Influenza screen was negative. Patient states she has been unable to eat or drink since she returned home on Friday. Every time she takes a drink, she has vomiting. She states her emesis consist of phlegmy material and some bilious output with it. She denies any diarrhea, her last bowel movement was on Friday and it was quiet hard, requiring her to strain to pass it. During last admission while inpatient she was having some diarrhea, which had resolved. She denies any abdominal pain other than when she sits up there is some abdominal wall discomfort over the lower abdomen. Her abdomen is soft, as no guarding noted. Chest x-ray showed pulmonary venous hypertension and interstitial edema. CT chest shows persistent multifocal reticulonodular opacities within both lungs with tree-in-bud opacity within the right upper lobe similar to the exam from suggesting atypical pneumonitis or infectious or inflammatory etiology. Patient was started on Rocephin, azithromycin, nebulized treatments, and admitted for further management. Legionella urine antigen was sent, pending at this time. Blood cultures, sputum culture and urine cultures, as well as mycoplasma IgG and IgM were ordered and are pending at this time. On 01/08/2018 patient seen again in follow-up on medical surgical floor. She hasn't had any episodes of vomiting since admission. She denies any acute dyspnea, chest congestion or sputum production. Remains afebrile, vital signs are stable. Currently on room air with O2 sat at 96%. Urine and blood culture remained negative at the 24-hour umesh. 2-D echocardiogram from 01/07/2018 has been reviewed and showed left ventricular systolic function within low-normal limit with EF between 50-55%, severe mitral regurgitation was again noted. Today's labs show no evidence of leukocytosis, electrolytes and renal profile remained within normal limits. Serum cortisol was low, at 5. Yesterday we added stress doses of hydrocortisone at 100 mg every 8 hours IV. Patient remains on combination of Zithromax and Rocephin, awaiting the final results of the Legionella and Mycoplasma antigen workup. Patient will be scheduled for bronchoscopy tomorrow on 01/09/[address] Ricketts so bronchial cultures can be obtained. Patient is in agreement. Objective - Vital Signs Vital signs: Vital Signs Temp 97.1 F L 01/08/18 06:21 Pulse 73 01/08/18 08:05 Resp 18 01/08/18 06:21 BP 87/53 01/08/18 06:21 Pulse Ox 96 01/08/18 06:21 Intake & Output 01/07/18 01/08/18 01/08/18 18:59 06:59 18:59 Intake Total 240 Balance 240 Weight 78.925 kg 79 kg Intake: Oral 240 Other: Voiding Method Toilet Bedside Commode Diaper Diaper # Voids 1 2 - Exam GENERAL EXAM: Alert, pleasant, 72-year-old white female comfortable in no apparent distress. HEAD: Normocephalic/atraumatic. EYES: Normal reaction of pupils, equal size. Conjunctiva pink, sclera white. NOSE: Clear with pink turbinates. THROAT: No erythema or exudates. NECK: No masses, no JVD, no thyroid enlargement, no adenopathy. CHEST: No chest wall deformity. Symmetrical expansion. LUNGS: Diffuse coarse crackles bilaterally at the bases, no rhonchi or wheezing noted. CVS: Regular rate and rhythm, normal S1 and S2, no gallops, no murmurs, no rubs ABDOMEN: Soft, nontender. No hepatosplenomegaly, normal bowel sounds, no guarding or rigidity. EXTREMITIES: No clubbing, no cyanosis, 2+ pulses and upper and lower extremities. Mild pretibial edema edema MUSCULOSKELETAL: Muscle strength and tone normal. SPINE: No scoliosis or deformity SKIN: No rashes CENTRAL NERVOUS SYSTEM: Alert and oriented -3. No focal deficits, tone is normal in all 4 extremities. PSYCHIATRIC: Alert and oriented -3. Appropriate affect. Intact judgment and insight. - Labs CBC & Chem 7: 01/08/18 08:04 01/08/18 08:04 Labs: Abnormal Lab Results - Last 24 Hours (Table) 01/08/18 01/08/18 Range/Units 08:04 08:04 MCV 102.9 H (80.0-100.0) fL MCHC 30.9 L (31.0-37.0) g/dL Plt Count 124 L (150-450) k/uL Lymphocytes # 0.7 L (1.0-4.8) k/uL Glucose 139 H (74-99) mg/dL Calcium 8.3 L (8.4-10.2) mg/dL Microbiology - Last 24 Hours (Table) 01/06/18 22:35 Urine Culture - Final Urine,Clean Catch 01/06/18 17:03 Blood Culture - Preliminary Blood No Growth after 24 hours Assessment and Plan Plan: Assessment: #1. Intractable nausea, vomiting, constipation, of unclear etiology. KUB x- ray positive for enteritis, colitis. Workup for atypical antigens, Legionella and Mycoplasma is in progress #2. Multifocal reticular nodular opacities within both lungs seen on CT chest from 01/06/2018 and 01/01/2018 suggesting atypical pneumonitis or inflammatory etiology. #3. Mild diastolic heart failure, last echo on 12/28/2016 showed EF of 60-65%. #4. History of moderate to severe mitral regurgitation, being medically treated #5. Recent admission with similar symptoms of nausea, vomiting, diarrhea and atypical chest pain. Dobutamine stress echo was negative for any evidence of ischemia. Patient's COPD was stable during last admission, patient was sent home on Levaquin and her maintenance inhalers and nebulized treatments. #6. History of advanced COPD, oxygen dependent, currently appears to be stable #7. Nicotine dependence, currently in remission #8. History of CVA/TIA #9. Hypertension, hyperlipidemia #10. Hypothyroidism #11. Fibromyalgia, chronic pain syndrome #12. Coronary artery disease Plan: Patient denies any dyspnea, other then on exertion which is at her baseline given the history of COPD and CHF. Afebrile, hemodynamically stable. No further episodes of nausea or vomiting. Awaiting the results of Legionella and Mycoplasma IgG. She continues on Rocephin and Zithromax for now. We'll proceed with scheduling the patient for a bronchoscopy with BAL, bronchial cultures will be obtained and sent for a more accurate diagnosis and etiology of the reticular opacities in bilateral lungs. Nothing by mouth after midnight. Continue with aggressive medical treatments for now. I performed a history & physical examination of the patient and discussed their management with my nurse practitioner, Rhonda Go. I reviewed the nurse practitioner's note and agree with the documented findings and plan of care. Lung sounds are positive for coarse rales bilaterally. The findings and the impression was discussed with the patient. I attest to the documentation by the nurse practitioner. Time with Patient: Less than 30
--- NOTE | 2018-01-08 11:23 | XR ---
EXAMINATION TYPE: XR chest 1V portable DATE OF EXAM: 01/08/2018 COMPARISON: Prior chest x-ray 01/06/2018, chest CT 01/06/2018 HISTORY: Atypical pneumonia, nausea TECHNIQUE: Single frontal view of the chest is obtained. FINDINGS: There may be some slight improvement in aeration. No pneumothorax. Patchy basilar density persists. Postop changes again noted. Cardiomediastinal silhouette, pulmonary vascularity and eulalio ar e unchanged. IMPRESSION: Suspect some improvement in aeration.
[2018-01-08] MEDS ORDERED: COSYNTROPIN 0.25 MG VIAL IVP ONE ×2 (12:00→18:00)
[2018-01-08] MEDS: MAGNESIUM OXIDE 400 MG TAB PO SCH (12:28)
[2018-01-08] MEDS: AZITHROMYCIN 500 MG in SODIUM CHLORIDE 0.9% 250 ML IVPB SCH (16:59)
--- NOTE | 2018-01-08 17:59 | PN ---
PROGRESS NOTE DATE OF SERVICE: 01/08/2018 REASON FOR FOLLOWUP: Abnormal x-ray and a question of pneumonia. INTERVAL HISTORY: The patient is afebrile today. She is breathing more comfortably. She did have occasional cough which has remained to be with minimal sputum production. She was able to provide a sputum sample; unfortunately, it was collected, but not sent down to the lab. The patient denies having any chest pain. No abdominal pain. No further vomiting and no diarrhea. EXAMINATION: Her blood pressure is 100/59 with a pulse of 57, temperature 97.9. She is 97% on 2L nasal cannula. General description is an elderly female up in the chair in no distress. RESPIRATORY SYSTEM: Unlabored breathing. Some decreased breath sounds at the bases. No wheeze. HEART: S1, S2. Regular rate and rhythm. ABDOMEN: Soft. No tenderness. No guarding or rigidity. EXTREMITIES: No edema of feet. LABS: Hemoglobin 13.5, white count of 5.8. BUN of 17, creatinine 0.74. Chest x-ray repeat did show some improvement. DIAGNOSTIC IMPRESSION AND PLAN: Patient with abnormal x-ray and CT with pattern with a question of possible pneumonia. Clinically, denies any significant respiratory symptoms; however, the patient did have mild cough and was able to provide a sputum. R.N. was advised to send the sputum for culture. Serology was also requested, which will be followed. Keep the patient on Rocephin and Zithromax while waiting for condition to stabilize. Continue supportive care. MMODL / IJN: [id number] / EMELINA
[2018-01-08] MEDS: FUROSEMIDE 20 MG TAB PO SCH (20:13)
[2018-01-08] MEDS: ATORVASTATIN 10 MG TAB PO SCH (20:13)
--- NOTE | 2018-01-08 22:44 | P.PN ---
Subjective Progress Note Date: 01/08/18 Progress note being dictated for Dr. Negron Interval history: This is a 72-year-old female admitted with possible acute gastritis, bilateral lung lesions nodular, possible atypical pneumonia, interstitial and pneumonia, low serum cortisol level, ruling out Parrish's disease and multiple other medical issues. Maintained on hydrocortisone , Rocephin, Zithromax, nebulized bronchodilators, with breathing slow to improve. Mostly Nonproductive cough, occasional minimal sputum production. Patient is scheduled for bronchoscopy tomorrow. Afebrile. Chest x-ray reporting some improvement in aeration. Objective - Vital Signs Vital signs: Vital Signs Temp 97.1 F L 01/08/18 16:00 Pulse 67 01/08/18 16:00 Resp 18 01/08/18 16:00 BP 100/59 01/08/18 16:00 Pulse Ox 97 01/08/18 16:00 Intake & Output 01/07/18 01/08/18 01/08/18 18:59 06:59 18:59 Intake Total 240 Balance 240 Weight 78.925 kg 79 kg Intake: Oral 240 Other: Voiding Method Toilet Bedside Commode Diaper Diaper # Voids 1 2 3 # Bowel Movements 1 - Exam PHYSICAL EXAM: VITAL SIGNS: As above GENERAL: Sitting up in chair, no acute distress HEENT: Conjunctivae normal. eyes normal. Oral mucosa moist NECK: No JVD. No thyroid enlargement. No LNs CARDIOVASCULAR: S1, S2 muffled. No murmur RESPIRATION: Breath sounds diminished in the bases. No rhonchi, scattered crackles. No wheezing ABDOMEN: Soft, nontender . No guarding. no masses palpable. No hepatosplenomegaly.Bowel sounds heard. LEGS: mildedema. PSYCHIATRY: Alert and oriented -3, mood and affect normal. NERVOUS SYSTEM: Cranial N 2-12 grossly normal. Moves all 4 limbs. Diffuse weakness No focal def. - Labs CBC & Chem 7: 01/08/18 08:04 01/08/18 08:04 Labs: Abnormal Lab Results - Last 24 Hours (Table) 01/08/18 01/08/18 Range/Units 08:04 08:04 MCV 102.9 H (80.0-100.0) fL MCHC 30.9 L (31.0-37.0) g/dL Plt Count 124 L (150-450) k/uL Lymphocytes # 0.7 L (1.0-4.8) k/uL Glucose 139 H (74-99) mg/dL Calcium 8.3 L (8.4-10.2) mg/dL Microbiology - Last 24 Hours (Table) 01/06/18 22:35 Urine Culture - Final Urine,Clean Catch 01/06/18 17:03 Blood Culture - Preliminary Blood No Growth after 24 hours Assessment and Plan Assessment: 1. possible acute gastritis 2. [ Bilateral lung lesions, nodular, possible atypical pneumonia, interstitial pneumonia, bronchoscopy pending]. 3. [Dissolvable, ruling out Mckenzie's disease]. 4. [ Congestive heart failure, diastolic dysfunction, EF 50-60%]. 5. [ Recent early pneumonia]. 6. [ CAD]. 7. [ COPD]. Plan: Continue on current medication regime ,monitoring and symptomatic treatment. Maintained on nebulized bronchodilators, steroids and antibiotics. Antibiotics as per infectious disease. Sputum culture ordered. Scheduled for bronchoscopy tomorrow with pulmonary as mentioned above. Legionella and Mycoplasma results pending. The impression and plan of care has been dictated as directed. : I performed a history and examination of this patient, discussed the same with the dictator. I agree with the dictator's note ,documented as a scribe. Any additional findings or plans will be noted.
[2018-01-09] MEDS: HYDROCORTISONE SUCCINATE 100 MG/2 ML VIAL IV SCH ×4 (00:02→23:03)
[2018-01-09] MEDS: ALPRAZolam 0.25 MG TAB PO PRN (00:02)
[2018-01-09] MEDS: TEMAZEPAM 15 MG CAP PO PRN ×2 (00:02→23:03)
[2018-01-09 05:28] LABS: Mycoplasma IgM Antibody 0.11 INDEX (<=0.90)
[2018-01-09] MEDS: LEVOTHYROXINE 112 MCG TAB PO SCH (05:44)
[2018-01-09] MEDS: HYDROcodone/APAP 10-325MG 1 EACH TAB PO PRN ×3 (05:44→20:57)
[2018-01-09] MEDS: SODIUM CHLORIDE 0.9% 1,000 ML IV SCH ×4 (05:44→23:04)
[2018-01-09] MEDS: BUDESONIDE 1 MG/2 ML NEBU INHALATION SCH ×2 (08:18→19:39)
[2018-01-09] MEDS: IPRATROPIUM 0.5 MG/2.5 ML NEBU INHALATION SCH ×3 (08:18→19:39)
[2018-01-09] MEDS: FLUoxetine HCL 20 MG CAP PO SCH (08:38)
[2018-01-09] MEDS: SPIRONOLACTONE 25 MG TAB PO SCH (08:39)
[2018-01-09] MEDS: PANTOPRAZOLE 40 MG/10 ML VIAL IVP SCH ×2 (08:45→20:58)
[2018-01-09] MEDS: cefTRIAXone IN SWFI 1,000 MG/10 ML SYRINGE IVP SCH (08:45)
[2018-01-09] MEDS: HEPARIN SODIUM,PORCINE 5,000 UNIT/ML 1 ML VIAL SQ SCH ×2 (08:45→20:58)
[2018-01-09] MEDS: FLUTICASONE 50MCG/SPRAY NASAL 16GM EA NOSTRIL SCH (08:45)
[2018-01-09] MEDS: PREGABALIN 75 MG CAP PO SCH ×3 (08:45→21:03)
[2018-01-09 08:48] LABS: Basophils % (A) 0 %; Eosinophils % (A) 0 %; HGB 12.2 gm/dL (11.4-16.0); Lymphocytes # (A) 0.8 k/uL (1.0-4.8); Lymphocytes % (A) 12 %; MCH 31.4 pg (25.0-35.0); MCHC 31.3 g/dL (31.0-37.0); MCV 100.4 fL (80.0-100.0); Mean Platelet Volume 8.4; Monocytes # (A) 0.4 k/uL (0-1.0); Monocytes % (A) 5 %; Neutrophils # (A) 5.7 k/uL (1.3-7.7); Neutrophils % (A) 82 %; Platelet Count 137 k/uL (150-450); RBC 3.88 m/uL (3.80-5.40); RDW 13.3 % (11.5-15.5); WBC 6.9 k/uL (3.8-10.6)
[2018-01-09 08:49] LABS: Anion Gap 11 mmol/L; Blood Urea Nitrogen 15 mg/dL (7-17); Calcium 8.2 mg/dL (8.4-10.2); Carbon Dioxide 27 mmol/L (22-30); Chloride 103 mmol/L (98-107); Glucose 107 mg/dL (74-99); Potassium 3.6 mmol/L (3.5-5.1); Sodium 141 mmol/L (137-145)
--- NOTE | 2018-01-09 09:54 | P.PN ---
Subjective Progress Note Date: 01/09/18 Principal diagnosis: Intractable nausea, vomiting. Multifocal nodular opacities in both lungs suggesting atypical pneumonitis or inflammatory etiology Jessica is a 72-year-old white female patient of Dr. Ulrich, who presented to the emergency department on 01/06/2018 at 1149 with complaints of intractable nausea, vomiting, some chills, dyspnea, constant chest discomfort over upper sternal area since Friday of this week. She states she does have some coughing spells, but her cough is dry, she is dyspneic on a regular basis due to her history of CHF and COPD, and this has not significantly changed from her baseline. She was just hospitalized for atypical chest pain, and complaints of nausea vomiting and diarrhea and discharged home on Friday01/04/2018 in stable condition. Her COPD was stable during that admission. During that stay her troponins were negative 3, influenza screen was negative. Dobutamine stress test was negative for cardiac ischemia. Patient had a ELLI on 03/11/2017 to assess the mechanism of the mitral regurgitation. It showed thickening and calcification of anterior mitral leaflet with poor coaptation of the anterior and posterior mitral leaflet. There was no definite evidence of any vegetation nor was there any definite evidence of any mitral valve prolapse or flail mitral leaflet. There was moderate to severe mitral regurgitation, and there was mild to moderate tricuspid regurgitation noted. CT angiogram was positive for areas of pneumonitis versus or edema. Patient did not have any acute respiratory symptoms during that stay, no fever, no chills, no chest congestion or increased sputum production. She was discharged home on Levaquin, oral Lasix 20 mg at bedtime, Pulmicort nebIlan shelby and was instructed to follow-up with Dr. Ricketts in the office. Patient does have an underlying history of COPD , has home oxygen at 2-3 L per nasal cannula at bedtime and as needed, coronary artery disease, congestive heart failure, CVA/TIA, fibromyalgia, hyperlipidemia , hypertension, hypothyroidism, chronic back pain, restless leg syndrome. She did have cervical neck fusions, right shoulder replacement, right knee replacement surgeries, bilateral, cataract surgeries, appendectomy and cholecystectomy, Gogo fundoplication. She had an EGD in the past for her symptoms of nausea vomiting, weight loss, which did not show any evidence of peptic ulcer disease or Kristy. During this admission, lab work is negative for any evidence of leukocytosis, WBC is 8.0, hemoglobin is 13.5, INR is 1.2, electrolytes are within normal limits, renal profile is normal, liver enzymes within normal limits, troponin was negative 1, proBNP was elevated at 1360, C-reactive protein was 25.1, ESR was 39, plasma lactic acid was within normal limits at 1.2. Urinalysis showed trace protein, 2+ ketones, and moderate amount of blood. Leukocyte esterase was negative, there was a rare bacteria and rare mucus. Influenza screen was negative. Patient states she has been unable to eat or drink since she returned home on Friday. Every time she takes a drink, she has vomiting. She states her emesis consist of phlegmy material and some bilious output with it. She denies any diarrhea, her last bowel movement was on Friday and it was quiet hard, requiring her to strain to pass it. During last admission while inpatient she was having some diarrhea, which had resolved. She denies any abdominal pain other than when she sits up there is some abdominal wall discomfort over the lower abdomen. Her abdomen is soft, as no guarding noted. Chest x-ray showed pulmonary venous hypertension and interstitial edema. CT chest shows persistent multifocal reticulonodular opacities within both lungs with tree-in-bud opacity within the right upper lobe similar to the exam from suggesting atypical pneumonitis or infectious or inflammatory etiology. Patient was started on Rocephin, azithromycin, nebulized treatments, and admitted for further management. Legionella urine antigen was sent, pending at this time. Blood cultures, sputum culture and urine cultures, as well as mycoplasma IgG and IgM were ordered and are pending at this time. On 01/08/2018 patient seen again in follow-up on medical surgical floor. She hasn't had any episodes of vomiting since admission. She denies any acute dyspnea, chest congestion or sputum production. Remains afebrile, vital signs are stable. Currently on room air with O2 sat at 96%. Urine and blood culture remained negative at the 24-hour umesh. 2-D echocardiogram from 01/07/2018 has been reviewed and showed left ventricular systolic function within low-normal limit with EF between 50-55%, severe mitral regurgitation was again noted. Today's labs show no evidence of leukocytosis, electrolytes and renal profile remained within normal limits. Serum cortisol was low, at 5. Yesterday we added stress doses of hydrocortisone at 100 mg every 8 hours IV. Patient remains on combination of Zithromax and Rocephin, awaiting the final results of the Legionella and Mycoplasma antigen workup. Patient will be scheduled for bronchoscopy tomorrow on 01/09/[address] Ricketts so bronchial cultures can be obtained. Patient is in agreement. On 01/09/2018 patient seen in follow-up. No nausea or vomiting since admission. Vital signs are stable, patient remains afebrile. On 2 L per nasal cannula her O2 sat is 93%. Blood, urine are negative and sputum culture is currently pending. Chest x-ray from 01/08/2018 shows some improvement in aeration. Today's lab work shows the previous history of 6.9, hemoglobin 12.2, no electrolyte or renal profile abnormality. Lung sounds are positive for rales over left lower lobe. Clear on the right. Patient denies any acute dyspnea, no significant sputum production. No fevers, no chills. Objective - Vital Signs Vital signs: Vital Signs Temp 98.3 F 01/09/18 07:40 Pulse 72 01/09/18 08:33 Resp 18 01/09/18 07:40 BP 96/57 01/09/18 07:40 Pulse Ox 93 L 01/09/18 08:19 Intake & Output 01/08/18 01/09/18 01/09/18 18:59 06:59 18:59 Intake Total 250 Balance 250 Intake: Oral 250 Other: Voiding Method Bedside Commode Diaper # Voids 2 4 # Bowel Movements 1 - Exam GENERAL EXAM: Alert, pleasant, 72-year-old white female comfortable in no apparent distress. HEAD: Normocephalic/atraumatic. EYES: Normal reaction of pupils, equal size. Conjunctiva pink, sclera white. NOSE: Clear with pink turbinates. THROAT: No erythema or exudates. NECK: No masses, no JVD, no thyroid enlargement, no adenopathy. CHEST: No chest wall deformity. Symmetrical expansion. LUNGS: Diffuse crackles over left lower lobe, no rhonchi or wheezing noted. CVS: Regular rate and rhythm, normal S1 and S2, no gallops, no murmurs, no rubs ABDOMEN: Soft, nontender. No hepatosplenomegaly, normal bowel sounds, no guarding or rigidity. EXTREMITIES: No clubbing, no cyanosis, 2+ pulses and upper and lower extremities. Mild pretibial edema edema MUSCULOSKELETAL: Muscle strength and tone normal. SPINE: No scoliosis or deformity SKIN: No rashes CENTRAL NERVOUS SYSTEM: Alert and oriented -3. No focal deficits, tone is normal in all 4 extremities. PSYCHIATRIC: Alert and oriented -3. Appropriate affect. Intact judgment and insight. - Labs CBC & Chem 7: 01/09/18 07:17 01/09/18 07:17 Labs: Abnormal Lab Results - Last 24 Hours (Table) 01/09/18 01/09/18 Range/Units 07:17 07:17 MCV 100.4 H (80.0-100.0) fL Plt Count 137 L (150-450) k/uL Lymphocytes # 0.8 L (1.0-4.8) k/uL Glucose 107 H (74-99) mg/dL Calcium 8.2 L (8.4-10.2) mg/dL Microbiology - Last 24 Hours (Table) 01/08/18 13:25 Gram Stain - Preliminary Sputum 01/06/18 17:03 Blood Culture - Preliminary Blood No Growth after 48 hours 01/06/18 22:35 Urine Culture - Final Urine,Clean Catch Assessment and Plan Plan: Assessment: #1. Intractable nausea, vomiting, constipation, of unclear etiology, resolved. KUB x-ray positive for enteritis, colitis. Workup for atypical antigens, Legionella and Mycoplasma is in progress #2. Multifocal reticular nodular opacities within both lungs seen on CT chest from 01/06/2018 and 01/01/2018 suggesting atypical pneumonitis or inflammatory etiology. #3. Mild diastolic heart failure, last echo on 12/28/2016 showed EF of 60-65%. #4. History of moderate to severe mitral regurgitation, being medically treated #5. Recent admission with similar symptoms of nausea, vomiting, diarrhea and atypical chest pain. Dobutamine stress echo was negative for any evidence of ischemia. Patient's COPD was stable during last admission, patient was sent home on Levaquin and her maintenance inhalers and nebulized treatments. #6. History of advanced COPD, oxygen dependent, currently appears to be stable #7. Nicotine dependence, currently in remission #8. History of CVA/TIA #9. Hypertension, hyperlipidemia #10. Hypothyroidism #11. Fibromyalgia, chronic pain syndrome #12. Coronary artery disease Plan: Continue with current medical treatment, yesterday we decreased the dose of hydrocortisone to 50 mg every 8 hours. Patient has not had any further episodes of nausea vomiting since admission. No acute pulmonary complaints, no significant chest congestion or sputum production. She remains afebrile, she continues on a combination of Rocephin and Zithromax. We'll proceed with bronchoscopy with BAL today and bronch washing will be sent for cultures. I performed a history & physical examination of the patient and discussed their management with my nurse practitioner, Rhonda Go. I reviewed the nurse practitioner's note and agree with the documented findings and plan of care. Lung sounds are positive for some scattered rales over left posterior lower lobe. The findings and the impression was discussed with the patient. I attest to the documentation by the nurse practitioner. Time with Patient: Less than 30
[2018-01-09] MEDS: POLYETHYLENE GLYCOL 3350 17 GM POWD.PACK PO SCH (10:37)
[2018-01-09] MEDS ORDERED: IV FLUID CONTINUATION 1,000 ML IV ONE (11:55)
[2018-01-09] MEDS ORDERED: PROPOFOL 10 MG/ML 20 ML VIAL IV ONE (12:03)
--- NOTE | 2018-01-09 12:45 | PCN ---
PROCEDURE NOTE The operative report is bronchoscopy and bronchoalveolar lavage of the right middle lobe and inferior segment of the lingula. PREOPERATIVE DIAGNOSIS: Abnormal CT of the chest and chest x-ray suggestive of atypical mycobacterial infection. POSTOPERATIVE DIAGNOSIS: Abnormal CT of the chest and chest x-ray suggestive of atypical mycobacterial infection. ANESTHESIA USED: IV conscious sedation by COBBLER UPPER. PROCEDURE: Patient was placed in the supine position, O2 was applied via nasal cannula, and a bite block was used. We monitored her O2 saturation continuously, blood pressure was intermittently monitored, cardiac rhythm was continuously monitored. After adequate IV conscious sedation, the bronchoscope was advanced through the bite block down to the area of the vocal cords. The vocal cords were patent. Lidocaine was applied over the vocal cords, and I was able to advance the bronchoscope down to the trachea. Thorough examination done of the trachea, nereyda, right upper lobe, right middle lobe, right lower lobe, left upper lobe, lingula and left lower lobe. Very minimal slightly purulent secretion noted in the airways, however, the bronchoscope was wedged into the middle lobe, and lavage of the middle lobe was done. Then I moved to the lingula, and lavage was done of the inferior segment of the lingula. The fluid was sent for different diagnostic studies. Procedure was well tolerated. No evidence of any significant findings otherwise. No endobronchial tumors and no significant purulent secretions noted. MMODL / IJN: [id number] /
--- NOTE | 2018-01-09 13:14 | CDI ---
Addendum: Chronic hypoxic respiratory failure due to advanced COPD and chronic CHF without chronic hypercapnia Documentation Clarification Form Date: 01/09/2018 12:28:00 PM From: Shadia Quiñonez RN, CCDS Admit Date: 01/07/2018 12:51:00 PM Patient Name: Jessica Scanlon Visit Number: [id number] ATTENTION: The Clinical Documentation Specialists (CDI) and [facility] Coding Staff appreciate your assistance in clarifying documentation. Please respond to the clarification below the line at the bottom and electronically sign. The CDI & [facility] Coding staff will review the response and follow-up if needed. Please note: Queries are made part of the Legal Health Record. If you have any questions, please contact the author of this message via ITS. Dr. Jan Faustin/ Rhonda Go Documentation in the medical record indicated the patient has O2 dependence. Please provide a clinically significance. History/Risk Factors: COPD, O2 dependant, CHF Tobacco use: hx of smoking Home oxygen dependant Clinical Indicators: 01/09 Pulmonary Progress Note: "History of advanced COPD, oxygen dependent, currently appears to be stable ." Pulse oximetry: 92-97% on room air to 2L nasal cannula 01/09 Pulmonary Lung/Breathing assessment:" Diffuse crackles over left lower lobe , no rhonchi or wheezing noted." Treatment: Breathing TX: Atrovent INH TID Pulse ox per nursing unit protocol O2: room air to 2L In your professional opinion, can you please clarify if these findings signify one of the following conditions? Acuity: Chronic Specificity: Respiratory Failure, further specify (if known): With hypercapnia? With hypoxia? Respiratory Distress Respiratory Insufficiency Other Diagnosis, please specify Unable to determine Please continue to document in your progress notes and discharge summary in order to capture severity of illness and risk of mortality. Include clinical findings that support your diagnosis. MTDD
[2018-01-09] MEDS: MAGNESIUM OXIDE 400 MG TAB PO SCH (13:57)
[2018-01-09 15:37] LABS: Appearance,BF Cloudy; Nucleated Cells, Body Fluid 155 /uL; RBC, Body Fluid 25 /uL
--- NOTE | 2018-01-09 15:38 | PN ---
PROGRESS NOTE DATE OF SERVICE: 01/09/2018 This 72-year-old woman who was admitted with bilateral lung lesions, possible acute pneumonia is on IV antibiotics. No chest pain. No palpitations. No fever. Pulmonary is following the patient closely. The patient underwent bronchoscopy today by Dr. Faustin to rule out the possibly atypical mycobacterial infection. The patient is being closely monitored. PAST MEDICAL HISTORY: Reviewed. REVIEW OF SYSTEMS: Noted. PHYSICAL EXAMINATION: Alert and oriented x2. Pulse 88, blood pressure 100/65, respiration 18, temperature 98.9, pulse ox 98% on 2 L. HEENT: Conjunctivae normal. NECK: No jugular venous distention. CARDIOVASCULAR: S1, S2 muffled. RESPIRATORY: Breath sounds diminished in the bases. A few scattered rhonchi and crackles. ABDOMEN: Soft, nontender. LEGS: No edema. NERVOUS SYSTEM: No focal deficits. LAB STUDIES: WBC 6, hemoglobin 12.2, platelets 137. ASSESSMENT: 1. Bilateral lung lesions noted, possible atypical pneumonia, rule out mycobacterial disease and interstitial pneumonia status post bronchoscopy. 2. Possible acute gastritis. 3. Low cortisole, rule out Parrish's disease. 4. Congestive heart failure with chronic diastolic dysfunction, ejection fraction 50 to 60%. 5. History of recent early pneumonia. 6. Coronary artery disease. 7. Chronic obstructive pulmonary disease. RECOMMENDATIONS AND DISCUSSION: This 72-year-old woman who presented with multiple complex medical issues, will monitor the patient closely. Continue the current management and symptomatic treatment. Otherwise the patient responded adequately to cortisol with a CT simulation. levels found to be relatively low. Guarded prognosis. I would also recommend a CT scan of the brain also at this time. Further recommendations to follow. MMODL / IJN: [id number] / MTDD
[2018-01-09 16:00] LABS: Mononuclear WBC,Body Fluid 34 %; Polynuclear WBC,Body Fluid 66 %; Total Cells Counted,Body Fluid 100
--- NOTE | 2018-01-09 16:27 | PN ---
PROGRESS NOTE DATE OF SERVICE: 01/09/2018 REASON FOR FOLLOWUP: Possible pneumonia. INTERVAL HISTORY: The patient is afebrile. The patient is status post bronchoscopy this morning by Dr. Faustin. The patient tolerated the procedure. Bronchial wash cultures currently pending. Denies having any chest pain. She did have mild cough. No abdominal pain or any diarrhea. EXAMINATION: Blood pressure 100/55 with a pulse of 80, temperature 98.9. She is 98% on 2 L nasal cannula. General description is an elderly female lying in bed in no distress. RESPIRATORY SYSTEM: Unlabored breathing. Mild wheeze. HEART: S1, S2. Regular rate and rhythm. ABDOMEN: Soft, no tenderness. LABS: Hemoglobin 12.2, white count 6.9, BUN of 15, creatinine 0.64. DIAGNOSTIC IMPRESSION AND PLAN: Patient with abnormal CT and x-ray with concern for possible atypical infection such as mycobacterium avium, status post bronch. Will wait for the bronch cultures to finalize. Continue with current IV Rocephin and Zithromax, adjusting it further based on the culture report. Continue supportive care. MMODL / IJN: [id number] /
[2018-01-09] MEDS: AZITHROMYCIN 500 MG in SODIUM CHLORIDE 0.9% 250 ML IVPB SCH (16:59)
[2018-01-09] MEDS: ATORVASTATIN 10 MG TAB PO SCH (20:58)
[2018-01-09] MEDS: FUROSEMIDE 20 MG TAB PO SCH (20:58)
[2018-01-10] MEDS: HYDROcodone/APAP 10-325MG 1 EACH TAB PO PRN ×4 (02:42→22:18)
[2018-01-10] MEDS: LEVOTHYROXINE 112 MCG TAB PO SCH (05:33)
[2018-01-10] MEDS: diphenhydrAMINE 25 MG CAP PO PRN (06:40)
[2018-01-10 07:56] LABS: Basophils % (A) 0 %; Eosinophils # (A) 0.1 k/uL (0-0.7); Eosinophils % (A) 1 %; HCT 39.9 % (34.0-46.0); Lymphocytes # (A) 0.9 k/uL (1.0-4.8); Lymphocytes % (A) 11 %; MCH 31.9 pg (25.0-35.0); MCHC 32.5 g/dL (31.0-37.0); MCV 98.1 fL (80.0-100.0); Mean Platelet Volume 7.9; Monocytes # (A) 0.5 k/uL (0-1.0); Monocytes % (A) 6 %; Neutrophils # (A) 6.4 k/uL (1.3-7.7); Neutrophils % (A) 81 %; Platelet Count 153 k/uL (150-450); RBC 4.07 m/uL (3.80-5.40); RDW 13.5 % (11.5-15.5); WBC 7.9 k/uL (3.8-10.6)
[2018-01-10 08:21] LABS: Anion Gap 10 mmol/L; Blood Urea Nitrogen 18 mg/dL (7-17); Calcium 8.2 mg/dL (8.4-10.2); Carbon Dioxide 31 mmol/L (22-30); Chloride 101 mmol/L (98-107); Glucose 106 mg/dL (74-99); Potassium 3.2 mmol/L (3.5-5.1); Sodium 142 mmol/L (137-145)
[2018-01-10] MEDS: BUDESONIDE 1 MG/2 ML NEBU INHALATION SCH ×2 (09:07→21:02)
[2018-01-10] MEDS: IPRATROPIUM 0.5 MG/2.5 ML NEBU INHALATION SCH ×3 (09:07→21:02)
[2018-01-10] MEDS: cefTRIAXone IN SWFI 1,000 MG/10 ML SYRINGE IVP SCH (09:17)
[2018-01-10] MEDS: HEPARIN SODIUM,PORCINE 5,000 UNIT/ML 1 ML VIAL SQ SCH ×2 (09:17→22:19)
[2018-01-10] MEDS: HYDROCORTISONE SUCCINATE 100 MG/2 ML VIAL IV SCH ×3 (09:17→23:30)
[2018-01-10] MEDS: ONDANSETRON 4 MG/2 ML VIAL IVP PRN ×3 (09:17→23:38)
[2018-01-10] MEDS: PANTOPRAZOLE 40 MG/10 ML VIAL IVP SCH ×2 (09:17→22:27)
[2018-01-10] MEDS: SODIUM CHLORIDE 0.9% 1,000 ML IV SCH ×3 (09:18→16:35)
[2018-01-10] MEDS: POLYETHYLENE GLYCOL 3350 17 GM POWD.PACK PO SCH (09:18)
[2018-01-10] MEDS: FLUoxetine HCL 20 MG CAP PO SCH (09:18)
[2018-01-10] MEDS: SPIRONOLACTONE 25 MG TAB PO SCH (09:18)
[2018-01-10] MEDS: FLUTICASONE 50MCG/SPRAY NASAL 16GM EA NOSTRIL SCH (09:19)
[2018-01-10] MEDS: PREGABALIN 75 MG CAP PO SCH ×3 (09:39→22:18)
[2018-01-10] MEDS: MAGNESIUM OXIDE 400 MG TAB PO SCH (13:14)
[2018-01-10] MEDS: METOCLOPRAMIDE 5 MG/ML 2 ML VIAL IVP PRN (13:17)
--- NOTE | 2018-01-10 14:18 | P.PN ---
Subjective Progress Note Date: 01/10/18 Principal diagnosis: Multifocal nodular opacities in the lungs bilaterallyLatosha Lopez is a 72-year-old white female patient of Dr. Ulrich, who presented to the emergency department on 01/06/2018 at 1149 with complaints of intractable nausea, vomiting, some chills, dyspnea, constant chest discomfort over upper sternal area since Friday of this week. She states she does have some coughing spells, but her cough is dry, she is dyspneic on a regular basis due to her history of CHF and COPD, and this has not significantly changed from her baseline. She was just hospitalized for atypical chest pain, and complaints of nausea vomiting and diarrhea and discharged home on Friday01/04/2018 in stable condition. Her COPD was stable during that admission. During that stay her troponins were negative 3, influenza screen was negative. Dobutamine stress test was negative for cardiac ischemia. Patient had a ELLI on 03/11/2017 to assess the mechanism of the mitral regurgitation. It showed thickening and calcification of anterior mitral leaflet with poor coaptation of the anterior and posterior mitral leaflet. There was no definite evidence of any vegetation nor was there any definite evidence of any mitral valve prolapse or flail mitral leaflet. There was moderate to severe mitral regurgitation, and there was mild to moderate tricuspid regurgitation noted. CT angiogram was positive for areas of pneumonitis versus or edema. Patient did not have any acute respiratory symptoms during that stay, no fever, no chills, no chest congestion or increased sputum production. She was discharged home on Levaquin, oral Lasix 20 mg at bedtime, Pulmicort nebs, DuoNeb and was instructed to follow-up with Dr. Ricketts in the office. Patient does have an underlying history of COPD , has home oxygen at 2-3 L per nasal cannula at bedtime and as needed, coronary artery disease, congestive heart failure, CVA/TIA, fibromyalgia, hyperlipidemia , hypertension, hypothyroidism, chronic back pain, restless leg syndrome. She did have cervical neck fusions, right shoulder replacement, right knee replacement surgeries, bilateral, cataract surgeries, appendectomy and cholecystectomy, Gogo fundoplication. She had an EGD in the past for her symptoms of nausea vomiting, weight loss, which did not show any evidence of peptic ulcer disease or Kristy. During this admission, lab work is negative for any evidence of leukocytosis, WBC is 8.0, hemoglobin is 13.5, INR is 1.2, electrolytes are within normal limits, renal profile is normal, liver enzymes within normal limits, troponin was negative 1, proBNP was elevated at 1360, C-reactive protein was 25.1, ESR was 39, plasma lactic acid was within normal limits at 1.2. Urinalysis showed trace protein, 2+ ketones, and moderate amount of blood. Leukocyte esterase was negative, there was a rare bacteria and rare mucus. Influenza screen was negative. Patient states she has been unable to eat or drink since she returned home on Friday. Every time she takes a drink, she has vomiting. She states her emesis consist of phlegmy material and some bilious output with it. She denies any diarrhea, her last bowel movement was on Friday and it was quiet hard, requiring her to strain to pass it. During last admission while inpatient she was having some diarrhea, which had resolved. She denies any abdominal pain other than when she sits up there is some abdominal wall discomfort over the lower abdomen. Her abdomen is soft, as no guarding noted. Chest x-ray showed pulmonary venous hypertension and interstitial edema. CT chest shows persistent multifocal reticulonodular opacities within both lungs with tree-in-bud opacity within the right upper lobe similar to the exam from suggesting atypical pneumonitis or infectious or inflammatory etiology. Patient was started on Rocephin, azithromycin, nebulized treatments, and admitted for further management. Legionella urine antigen was sent, pending at this time. Blood cultures, sputum culture and urine cultures, as well as mycoplasma IgG and IgM were ordered and are pending at this time. On 01/08/2018 patient seen again in follow-up on medical surgical floor. She hasn't had any episodes of vomiting since admission. She denies any acute dyspnea, chest congestion or sputum production. Remains afebrile, vital signs are stable. Currently on room air with O2 sat at 96%. Urine and blood culture remained negative at the 24-hour umesh. 2-D echocardiogram from 01/07/2018 has been reviewed and showed left ventricular systolic function within low-normal limit with EF between 50-55%, severe mitral regurgitation was again noted. Today's labs show no evidence of leukocytosis, electrolytes and renal profile remained within normal limits. Serum cortisol was low, at 5. Yesterday we added stress doses of hydrocortisone at 100 mg every 8 hours IV. Patient remains on combination of Zithromax and Rocephin, awaiting the final results of the Legionella and Mycoplasma antigen workup. Patient will be scheduled for bronchoscopy tomorrow on 01/09/[address] Ricketts so bronchial cultures can be obtained. Patient is in agreement. On 01/09/2018 patient seen in follow-up. No nausea or vomiting since admission. Vital signs are stable, patient remains afebrile. On 2 L per nasal cannula her O2 sat is 93%. Blood, urine are negative and sputum culture is currently pending. Chest x-ray from 01/08/2018 shows some improvement in aeration. Today's lab work shows the previous history of 6.9, hemoglobin 12.2, no electrolyte or renal profile abnormality. Lung sounds are positive for rales over left lower lobe. Clear on the right. Patient denies any acute dyspnea, no significant sputum production. No fevers, no chills. The patient is seen again today 01/10/2018 in follow-up on the regular medical floor. She is seen sitting up in bed and resting quite comfortably. She denies any worsening shortness of breath, cough or congestion. Bronchial washings reveal no growth thus far. Cytology is pending. She denies any worsening shortness of breath, cough or congestion. She still has some complaints of nausea. She has been afebrile. Maintaining good O2 saturations in the mid to upper 90s on 2 L/m per nasal cannula. She's been afebrile. No leukocytosis. Hemoglobin 13.0. Creatinine 0.70. Objective - Vital Signs Vital signs: Vital Signs Temp 96.7 F L 01/10/18 07:00 Pulse 88 01/10/18 14:06 Resp 22 01/10/18 07:00 BP 104/62 01/10/18 07:00 Pulse Ox 98 01/10/18 09:10 Intake & Output 01/09/18 01/10/18 01/10/18 18:59 06:59 18:59 Intake Total 20 1200 Balance 20 1200 Weight 83.5 kg Intake: IV 20 Oral 1200 Other: Voiding Method Bedside Commode Diaper # Voids 1 3 # Bowel Movements 0 - Exam GENERAL EXAM: Alert, active, comfortable in no apparent distress. HEAD: Normocephalic. EYES: Normal reaction of pupils, equal size. NOSE: Clear with pink turbinates. THROAT: No erythema or exudates. NECK: No masses, no JVD. CHEST: No chest wall deformity. LUNGS: Equal air entry with no crackles, wheeze, rhonchi or dullness. CVS: S1 and S2 normal with few scattered rhonchi. ABDOMEN: No hepatosplenomegaly, normal bowel sounds, no guarding or rigidity. SPINE: No scoliosis or deformity SKIN: No rashes CENTRAL NERVOUS SYSTEM: No focal deficits, tone is normal in all 4 extremities. EXTREMITIES: There is no peripheral edema. No clubbing, no cyanosis. Peripheral pulses are intact. - Labs CBC & Chem 7: 01/10/18 07:36 01/10/18 07:36 Labs: Abnormal Lab Results - Last 24 Hours (Table) 01/10/18 01/10/18 Range/Units 07:36 07:36 Lymphocytes # 0.9 L (1.0-4.8) k/uL Potassium 3.2 L (3.5-5.1) mmol/L Carbon Dioxide 31 H (22-30) mmol/L BUN 18 H (7-17) mg/dL Glucose 106 H (74-99) mg/dL Calcium 8.2 L (8.4-10.2) mg/dL Microbiology - Last 24 Hours (Table) 01/08/18 13:25 Gram Stain - Final Sputum Sputum Culture - Final Kristy albicans 01/09/18 12:10 Acid Fast Bacilli Smear - Final Bronchial Washings - Right Acid Fast Bacilli Culture - Preliminary 01/09/18 12:10 Gram Stain - Preliminary Bronchial Washings - Right Bronchial Washings Culture - Preliminary 01/09/18 12:10 Fungal Culture - Preliminary Bronchial Washings - Right 01/06/18 17:03 Blood Culture - Preliminary Blood No Growth after 72 hours Assessment and Plan Assessment: Assessment: #1. Intractable nausea, vomiting, constipation, of unclear etiology, resolved. KUB x-ray positive for enteritis, colitis. Workup for atypical antigens, Legionella and Mycoplasma is in progress #2. Multifocal reticular nodular opacities within both lungs seen on CT chest from 01/06/2018 and 01/01/2018 suggesting atypical pneumonitis or inflammatory etiology. Bronchoscopy with BAL performed 01/09/2018. Cultures are pending. Cytology is pending. #3. Mild diastolic heart failure, last echo on 12/28/2016 showed EF of 60-65%. #4. History of moderate to severe mitral regurgitation, being medically treated #5. Recent admission with similar symptoms of nausea, vomiting, diarrhea and atypical chest pain. Dobutamine stress echo was negative for any evidence of ischemia. Patient's COPD was stable during last admission, patient was sent home on Levaquin and her maintenance inhalers and nebulized treatments. #6. History of advanced COPD, oxygen dependent, currently appears to be stable #7. Nicotine dependence, currently in remission #8. History of CVA/TIA #9. Hypertension, hyperlipidemia #10. Hypothyroidism #11. Fibromyalgia, chronic pain syndrome #12. Coronary artery disease Plan: The patient is seen and evaluated by Dr. Faustin. She is stable from the pulmonary standpoint. Continue with her usual pulmonary medications. No abnormalities in bronchial wash thus far. Cytology is pending. I, the cosigning physician, performed a history & physical examination of the patient. Lungs sounds have few scattered rhonchi. Diminished.. Maintaining good O2 saturations in the 90s on 2 L/m per nasal cannula. I discussed the assessment and plan of care with my nurse practitioner, Mary Cobos. I attest to the above note as dictated by her.
[2018-01-10] MEDS ORDERED: Potassium Replacement Protocol 1 EACH MISC MISCELLANE PRN (14:31)
[2018-01-10] MEDS: POTASSIUM CHLORIDE ER 20 MEQ TAB.ER PO SCH (16:34)
[2018-01-10] MEDS: AZITHROMYCIN 500 MG TAB PO SCH (17:06)
[2018-01-10] MEDS ORDERED: FUROSEMIDE 20 MG TAB PO SCH (18:00)
[2018-01-10] MEDS ORDERED: FLUCONAZOLE 100 MG TAB PO ONE (22:00)
--- NOTE | 2018-01-10 22:06 | P.PN ---
Progress Note - Text Progress Note Date: 01/10/18 Presenting complaint: Nausea vomiting Interval history: This patient presented with nausea vomiting. Also felt to have possible pneumonia. Status post bronchoscopy. Nurse informs me that she does eat well but then throws up everything. Feels a bit congested. Tired. Rundown Review of systems: Was done for constitutional, cardiovascular, GI, pulmonary. relevant finding as above Current medications reviewed that included: Zithromax by mouth, Pulmicort nebulizer, ceftriaxone IV, Duragesic patch, bronchodilators, IV fluids On exam: VITAL SIGNS: [97.8, 74, 22, 114/69, 95% on 2 L] GENERAL APPEARANCE: Propped up in bed, tired appearing HEENT: External appearance of nose and ears normal. Oral cavity shows white patches in the pharynx. EYES: Pupils equal. Conjunctiva normal. NECK: JVD not raised. Mass not palpable. RESPIRATORY: Respiratory effort increased, decreased breath sounds and some basal crackles. CARDIOVASCULAR: First and second sounds normal. No edema. ABDOMEN: Soft. Liver and spleen not palpable. No tenderness. No mass palpable. PSYCHIATRY: Alert and oriented x3. Mood and affect anxious appearing. Investigations: White count 7.9, hemoglobin 13, potassium 3.2, BUN 18, creatinine 0.70 Urine Legionella antigen negative Assessment: -Atypical pneumonitis with multifocal reticular nodular opacities in both the lungs per computed tomography scan. Currently on antibiotics per pulmonary and ID. Patient's feeling poorly. Slow to respond -Oropharyngeal candidiasis infection in a patient who's been on antibiotics and inhaled steroids -Chronic congestive heart failure from dust or dysfunction EF 55-60% from hypertensive heart disease -Hyperlipidemia -Chronic fibronodular -Essential hypertension -Restless leg syndrome -Hypothyroidism -COPD in an ex-smoker -Gait dysfunction and a baseline uses a walker -Chronic hypoxic respiratory failure on 2-3 L of oxygen from COPD -Chronic hiatal hernia -Moderate secondary pulmonary hypertension secondary to COPD -Severe mitral regurgitation, non-rheumatic Plan: Will go ahead and add Diflucan 200 mg daily. Will DC the Lasix. As patient BUN is climbing. Possibly Zithromax can be discontinued and that could be contacted regarding to the nausea vomiting if okay with ID and pulmonary. Care was discussed with the patient. Patient being followed by ID and pulmonary
[2018-01-10] MEDS: ATORVASTATIN 10 MG TAB PO SCH (22:18)
[2018-01-10] MEDS: TEMAZEPAM 15 MG CAP PO PRN (23:30)
[2018-01-11] MEDS: SODIUM CHLORIDE 0.9% 1,000 ML IV SCH ×4 (04:25→23:33)
[2018-01-11] MEDS: LEVOTHYROXINE 112 MCG TAB PO SCH (06:06)
[2018-01-11] MEDS: HYDROcodone/APAP 10-325MG 1 EACH TAB PO PRN ×4 (06:15→23:30)
[2018-01-11] MEDS: cefTRIAXone IN SWFI 1,000 MG/10 ML SYRINGE IVP SCH (08:13)
[2018-01-11] MEDS: POLYETHYLENE GLYCOL 3350 17 GM POWD.PACK PO SCH (08:14)
[2018-01-11] MEDS: HYDROCORTISONE SUCCINATE 100 MG/2 ML VIAL IV SCH ×3 (08:14→23:33)
[2018-01-11] MEDS: FLUTICASONE 50MCG/SPRAY NASAL 16GM EA NOSTRIL SCH (08:14)
[2018-01-11] MEDS: SPIRONOLACTONE 25 MG TAB PO SCH (08:14)
[2018-01-11] MEDS: FLUoxetine HCL 20 MG CAP PO SCH (08:15)
[2018-01-11] MEDS: PREGABALIN 75 MG CAP PO SCH ×3 (08:21→20:40)
[2018-01-11] MEDS: PANTOPRAZOLE 40 MG TABLET PO SCH ×2 (08:23→20:42)
[2018-01-11] MEDS: HEPARIN SODIUM,PORCINE 5,000 UNIT/ML 1 ML VIAL SQ SCH ×2 (08:24→20:46)
[2018-01-11 08:33] LABS: Basophils % (A) 0 %; Eosinophils % (A) 0 %; HCT 41.3 % (34.0-46.0); HGB 12.6 gm/dL (11.4-16.0); Lymphocytes # (A) 0.9 k/uL (1.0-4.8); Lymphocytes % (A) 12 %; MCH 31.1 pg (25.0-35.0); MCHC 30.4 g/dL (31.0-37.0); MCV 102.1 fL (80.0-100.0); Macrocytosis Slight; Mean Platelet Volume 8.1; Monocytes # (A) 0.4 k/uL (0-1.0); Monocytes % (A) 6 %; Neutrophils # (A) 5.6 k/uL (1.3-7.7); Neutrophils % (A) 80 %; Platelet Count 144 k/uL (150-450); RBC 4.05 m/uL (3.80-5.40); RDW 13.3 % (11.5-15.5)
[2018-01-11] MEDS: IPRATROPIUM 0.5 MG/2.5 ML NEBU INHALATION SCH ×3 (08:36→21:00)
[2018-01-11] MEDS: BUDESONIDE 1 MG/2 ML NEBU INHALATION SCH ×2 (08:36→20:59)
[2018-01-11 08:39] LABS: Anion Gap 8 mmol/L; Blood Urea Nitrogen 17 mg/dL (7-17); Calcium 8.5 mg/dL (8.4-10.2); Carbon Dioxide 36 mmol/L (22-30); Chloride 99 mmol/L (98-107); Glucose 100 mg/dL (74-99); Potassium 3.6 mmol/L (3.5-5.1); Sodium 143 mmol/L (137-145)
--- NOTE | 2018-01-11 10:06 | P.PN ---
Subjective Progress Note Date: 01/11/18 Principal diagnosis: Intractable nausea, vomiting. Multifocal nodular opacities in both lungs suggesting atypical pneumonitis or inflammatory etiology Jessica is a 72-year-old white female patient of Dr. Ulrich, who presented to the emergency department on 01/06/2018 at 1149 with complaints of intractable nausea, vomiting, some chills, dyspnea, constant chest discomfort over upper sternal area since Friday of this week. She states she does have some coughing spells, but her cough is dry, she is dyspneic on a regular basis due to her history of CHF and COPD, and this has not significantly changed from her baseline. She was just hospitalized for atypical chest pain, and complaints of nausea vomiting and diarrhea and discharged home on Friday01/04/2018 in stable condition. Her COPD was stable during that admission. During that stay her troponins were negative 3, influenza screen was negative. Dobutamine stress test was negative for cardiac ischemia. Patient had a ELLI on 03/11/2017 to assess the mechanism of the mitral regurgitation. It showed thickening and calcification of anterior mitral leaflet with poor coaptation of the anterior and posterior mitral leaflet. There was no definite evidence of any vegetation nor was there any definite evidence of any mitral valve prolapse or flail mitral leaflet. There was moderate to severe mitral regurgitation, and there was mild to moderate tricuspid regurgitation noted. CT angiogram was positive for areas of pneumonitis versus or edema. Patient did not have any acute respiratory symptoms during that stay, no fever, no chills, no chest congestion or increased sputum production. She was discharged home on Levaquin, oral Lasix 20 mg at bedtime, Pulmicort nebIlan shelby and was instructed to follow-up with Dr. Ricketts in the office. Patient does have an underlying history of COPD , has home oxygen at 2-3 L per nasal cannula at bedtime and as needed, coronary artery disease, congestive heart failure, CVA/TIA, fibromyalgia, hyperlipidemia , hypertension, hypothyroidism, chronic back pain, restless leg syndrome. She did have cervical neck fusions, right shoulder replacement, right knee replacement surgeries, bilateral, cataract surgeries, appendectomy and cholecystectomy, Gogo fundoplication. She had an EGD in the past for her symptoms of nausea vomiting, weight loss, which did not show any evidence of peptic ulcer disease or Kristy. During this admission, lab work is negative for any evidence of leukocytosis, WBC is 8.0, hemoglobin is 13.5, INR is 1.2, electrolytes are within normal limits, renal profile is normal, liver enzymes within normal limits, troponin was negative 1, proBNP was elevated at 1360, C-reactive protein was 25.1, ESR was 39, plasma lactic acid was within normal limits at 1.2. Urinalysis showed trace protein, 2+ ketones, and moderate amount of blood. Leukocyte esterase was negative, there was a rare bacteria and rare mucus. Influenza screen was negative. Patient states she has been unable to eat or drink since she returned home on Friday. Every time she takes a drink, she has vomiting. She states her emesis consist of phlegmy material and some bilious output with it. She denies any diarrhea, her last bowel movement was on Friday and it was quiet hard, requiring her to strain to pass it. During last admission while inpatient she was having some diarrhea, which had resolved. She denies any abdominal pain other than when she sits up there is some abdominal wall discomfort over the lower abdomen. Her abdomen is soft, as no guarding noted. Chest x-ray showed pulmonary venous hypertension and interstitial edema. CT chest shows persistent multifocal reticulonodular opacities within both lungs with tree-in-bud opacity within the right upper lobe similar to the exam from suggesting atypical pneumonitis or infectious or inflammatory etiology. Patient was started on Rocephin, azithromycin, nebulized treatments, and admitted for further management. Legionella urine antigen was sent, pending at this time. Blood cultures, sputum culture and urine cultures, as well as mycoplasma IgG and IgM were ordered and are pending at this time. On 01/08/2018 patient seen again in follow-up on medical surgical floor. She hasn't had any episodes of vomiting since admission. She denies any acute dyspnea, chest congestion or sputum production. Remains afebrile, vital signs are stable. Currently on room air with O2 sat at 96%. Urine and blood culture remained negative at the 24-hour umesh. 2-D echocardiogram from 01/07/2018 has been reviewed and showed left ventricular systolic function within low-normal limit with EF between 50-55%, severe mitral regurgitation was again noted. Today's labs show no evidence of leukocytosis, electrolytes and renal profile remained within normal limits. Serum cortisol was low, at 5. Yesterday we added stress doses of hydrocortisone at 100 mg every 8 hours IV. Patient remains on combination of Zithromax and Rocephin, awaiting the final results of the Legionella and Mycoplasma antigen workup. Patient will be scheduled for bronchoscopy tomorrow on 01/09/[address] Ricketts so bronchial cultures can be obtained. Patient is in agreement. On 01/09/2018 patient seen in follow-up. No nausea or vomiting since admission. Vital signs are stable, patient remains afebrile. On 2 L per nasal cannula her O2 sat is 93%. Blood, urine are negative and sputum culture is currently pending. Chest x-ray from 01/08/2018 shows some improvement in aeration. Today's lab work shows the previous history of 6.9, hemoglobin 12.2, no electrolyte or renal profile abnormality. Lung sounds are positive for rales over left lower lobe. Clear on the right. Patient denies any acute dyspnea, no significant sputum production. No fevers, no chills. The patient is seen again today 01/10/2018 in follow-up on the regular medical floor. She is seen sitting up in bed and resting quite comfortably. She denies any worsening shortness of breath, cough or congestion. Bronchial washings reveal no growth thus far. Cytology is pending. She denies any worsening shortness of breath, cough or congestion. She still has some complaints of nausea. She has been afebrile. Maintaining good O2 saturations in the mid to upper 90s on 2 L/m per nasal cannula. She's been afebrile. No leukocytosis. Hemoglobin 13.0. Creatinine 0.70. On 01/11/2018 patient seen in follow-up. She reports nausea and several episodes of vomiting since yesterday. She is currently on clear liquid diet. She again states she feels like she has no willpower to keep going. From pulmonary standpoint she denies any acute dyspnea, her lung sounds are positive for bibasilar crackles, she is on 2 L per nasal cannula with O2 sat 98%. He is afebrile, vital signs stable. Bronchial wash cultures are pending, AFB smear is negative. Mycoplasma and Legionella antigen were negative. Patient continues on a combination of Rocephin and Zithromax. Diflucan was added by attending physician. Yesterday we recommended GI service consult in regards to patient's ongoing symptoms of nausea and vomiting. Objective - Vital Signs Vital signs: Vital Signs Temp 97.2 F L 01/11/18 07:00 Pulse 80 01/11/18 08:54 Resp 20 01/11/18 07:00 BP 118/72 01/11/18 07:00 Pulse Ox 98 01/11/18 08:39 Intake & Output 01/10/18 01/11/18 01/11/18 18:59 06:59 18:59 Intake Total 240 300 Balance 240 300 Weight 82.5 kg Intake: Oral 240 300 Other: Voiding Method Bedside Commode Diaper # Voids 1 # Bowel Movements 0 0 - Exam GENERAL EXAM: Alert, pleasant, 72-year-old white female comfortable in no apparent distress. HEAD: Normocephalic/atraumatic. EYES: Normal reaction of pupils, equal size. Conjunctiva pink, sclera white. NOSE: Clear with pink turbinates. THROAT: No erythema or exudates. NECK: No masses, no JVD, no thyroid enlargement, no adenopathy. CHEST: No chest wall deformity. Symmetrical expansion. LUNGS: Diffuse crackles over bilateral bases, no rhonchi or wheezing noted. CVS: Regular rate and rhythm, normal S1 and S2, no gallops, no murmurs, no rubs ABDOMEN: Soft, nontender. No hepatosplenomegaly, normal bowel sounds, no guarding or rigidity. EXTREMITIES: No clubbing, no cyanosis, 2+ pulses and upper and lower extremities. Mild pretibial edema edema MUSCULOSKELETAL: Muscle strength and tone normal. SPINE: No scoliosis or deformity SKIN: No rashes CENTRAL NERVOUS SYSTEM: Alert and oriented -3. No focal deficits, tone is normal in all 4 extremities. PSYCHIATRIC: Alert and oriented -3. Appropriate affect. Intact judgment and insight. - Labs CBC & Chem 7: 01/11/18 07:40 01/11/18 07:40 Labs: Abnormal Lab Results - Last 24 Hours (Table) 01/11/18 01/11/18 Range/Units 07:40 07:40 MCV 102.1 H (80.0-100.0) fL MCHC 30.4 L (31.0-37.0) g/dL Plt Count 144 L (150-450) k/uL Lymphocytes # 0.9 L (1.0-4.8) k/uL Carbon Dioxide 36 H (22-30) mmol/L Glucose 100 H (74-99) mg/dL Microbiology - Last 24 Hours (Table) 01/06/18 17:03 Blood Culture - Preliminary Blood No Growth after 96 hours 01/08/18 13:25 Gram Stain - Final Sputum Sputum Culture - Final Kristy albicans Assessment and Plan Plan: Assessment: #1. Intractable nausea, vomiting, constipation, of unclear etiology, resolved. KUB x-ray positive for enteritis, colitis. Workup for atypical antigens, Legionella and Mycoplasma is in progress #2. Multifocal reticular nodular opacities within both lungs seen on CT chest from 01/06/2018 and 01/01/2018 suggesting atypical pneumonitis or inflammatory etiology. #3. Mild diastolic heart failure, last echo on 12/28/2016 showed EF of 60-65%. #4. History of moderate to severe mitral regurgitation, being medically treated #5. Recent admission with similar symptoms of nausea, vomiting, diarrhea and atypical chest pain. Dobutamine stress echo was negative for any evidence of ischemia. Patient's COPD was stable during last admission, patient was sent home on Levaquin and her maintenance inhalers and nebulized treatments. #6. Chronic hypoxic respiratory failure due to advanced COPD and chronic CHF without hypercapnia #7. Nicotine dependence, currently in remission #8. History of CVA/TIA #9. Hypertension, hyperlipidemia #10. Hypothyroidism #11. Fibromyalgia, chronic pain syndrome #12. Coronary artery disease Plan: Continue with current plan of treatment, will await the results of the final bronchial wash cultures. Legionella mycoplasma antigen were negative. Patient is having nausea and vomiting again. Yesterday we recommended consult and GI service in regards to her ongoing symptoms of nausea and vomiting. She remains stable from pulmonary standpoint, remains afebrile, denies any acute dyspnea, chest congestion or sputum production. Continue to follow with you I performed a history & physical examination of the patient and discussed their management with my nurse practitioner, Rhonda Go. I reviewed the nurse practitioner's note and agree with the documented findings and plan of care. Lung sounds are positive for bibasilar rales. The findings and the impression was discussed with the patient. I attest to the documentation by the nurse practitioner. Time with Patient: Less than 30
[2018-01-11] MEDS ORDERED: POTASSIUM CHLORIDE ER 20 MEQ TAB.ER PO SCH ×2 (11:00→20:00)
[2018-01-11] MEDS: MAGNESIUM OXIDE 400 MG TAB PO SCH (12:36)
[2018-01-11] MEDS: AZITHROMYCIN 500 MG TAB PO SCH (16:29)
--- NOTE | 2018-01-11 20:01 | P.PN ---
Progress Note - Text Progress Note Date: 01/11/18 Presenting complaint: Nausea vomiting Interval history: This patient presented with nausea vomiting. Also felt to have possible pneumonia. Status post bronchoscopy. Today-patient was started on Diflucan yesterday. Didn't tolerate some diet today. Overall feeling a bit better.: Tired and rundown. Review of systems: Was done for constitutional, cardiovascular, GI, pulmonary. relevant finding as above Current medications reviewed that included: Zithromax by mouth, Pulmicort nebulizer, ceftriaxone IV, Duragesic patch, bronchodilators, IV fluids On exam: VITAL SIGNS: 97.1, 85, 20, 104/61, 95% on 3 L GENERAL APPEARANCE: Propped up in bed, tired appearing HEENT: External appearance of nose and ears normal. Oral cavity shows white patches in the pharynx. EYES: Pupils equal. Conjunctiva normal. NECK: JVD not raised. Mass not palpable. RESPIRATORY: Respiratory effort increased, decreased breath sounds and some basal crackles. CARDIOVASCULAR: First and second sounds normal. No edema. ABDOMEN: Soft. Liver and spleen not palpable. No tenderness. No mass palpable. PSYCHIATRY: Alert and oriented x3. Mood and affect anxious appearing. Investigations: White count 7, hemoglobin 12.6, potassium 3.6, Urine Legionella antigen negative Assessment: -Atypical pneumonitis with multifocal reticular nodular opacities in both the lungs per computed tomography scan. Currently on antibiotics per pulmonary and ID. Patient's feeling poorly. 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 Started on Diflucan yesterday. Follow with pulmonary and ID. Care was discussed with the patient.
[2018-01-11] MEDS: ATORVASTATIN 10 MG TAB PO SCH (20:41)
--- NOTE | 2018-01-11 21:21 | PN ---
PROGRESS NOTE DATE OF SERVICE: 01/11/2018. REASON FOR FOLLOWUP: Pneumonia. INTERVAL HISTORY: The patient is afebrile. She has been breathing more comfortably. Cough decreased intensity and drainage. The patient now complaining of persistent vomiting since yesterday. Unable to keep anything down. No diarrhea. EXAMINATION: Blood pressure 104/51 with a pulse of 85, temperature 97.1. She is 95% on 3 L nasal cannula. General description is an elderly female up in the chair in no distress. Respiratory system: Unlabored breathing. Clear to auscultation. No wheeze or crackles. Heart S1, S2. Regular rate and rhythm. ABDOMEN: Soft, no tenderness. No organomegaly. LABS: Hemoglobin is 12.6, white count 27.0, BUN 36, creatinine 0.8. Bronch culture showing Kristy species. DIAGNOSTIC IMPRESSION AND PLAN: Patient with question of possible atypical pneumonia versus Mycobacterium avium infection status post bronch cultures currently pending. Culture with Kristy, likely colonized. Keep the patient on Rocephin and Zithromax at this point. Continue supportive care. MMODL / IJN: [id number] / MTDD
[2018-01-11] MEDS: diphenhydrAMINE 25 MG CAP PO PRN (23:29)
[2018-01-11] MEDS: TEMAZEPAM 15 MG CAP PO PRN (23:29)
[2018-01-11] MEDS: FLUCONAZOLE 100 MG TAB PO SCH (23:31)
[2018-01-12] MEDS: HYDROcodone/APAP 10-325MG 1 EACH TAB PO PRN ×3 (06:06→18:28)
[2018-01-12] MEDS: LEVOTHYROXINE 112 MCG TAB PO SCH (06:27)
[2018-01-12] MEDS: HYDROCORTISONE SUCCINATE 100 MG/2 ML VIAL IV SCH ×2 (08:09→15:57)
[2018-01-12] MEDS: SPIRONOLACTONE 25 MG TAB PO SCH (08:09)
[2018-01-12] MEDS: POLYETHYLENE GLYCOL 3350 17 GM POWD.PACK PO SCH (08:09)
[2018-01-12] MEDS: PANTOPRAZOLE 40 MG TABLET PO SCH ×2 (08:10→22:26)
[2018-01-12] MEDS: cefTRIAXone IN SWFI 1,000 MG/10 ML SYRINGE IVP SCH (08:10)
[2018-01-12] MEDS: HEPARIN SODIUM,PORCINE 5,000 UNIT/ML 1 ML VIAL SQ SCH ×2 (08:10→22:29)
[2018-01-12] MEDS: FLUTICASONE 50MCG/SPRAY NASAL 16GM EA NOSTRIL SCH (08:10)
[2018-01-12] MEDS: FLUoxetine HCL 20 MG CAP PO SCH (08:10)
[2018-01-12] MEDS: PREGABALIN 75 MG CAP PO SCH ×3 (08:19→22:26)
[2018-01-12] MEDS: SODIUM CHLORIDE 0.9% 1,000 ML IV SCH ×3 (08:20→22:29)
[2018-01-12] MEDS: BUDESONIDE 1 MG/2 ML NEBU INHALATION SCH ×2 (08:30→19:15)
[2018-01-12] MEDS: IPRATROPIUM 0.5 MG/2.5 ML NEBU INHALATION SCH ×3 (08:30→19:14)
[2018-01-12 09:17] LABS: Basophils % (A) 0 %; Eosinophils % (A) 1 %; HCT 40.7 % (34.0-46.0); HGB 12.7 gm/dL (11.4-16.0); Lymphocytes # (A) 0.9 k/uL (1.0-4.8); Lymphocytes % (A) 13 %; MCH 31.6 pg (25.0-35.0); MCHC 31.2 g/dL (31.0-37.0); MCV 101.4 fL (80.0-100.0); Macrocytosis Slight; Mean Platelet Volume 8.1; Monocytes # (A) 0.4 k/uL (0-1.0); Monocytes % (A) 6 %; Neutrophils # (A) 5.4 k/uL (1.3-7.7); Neutrophils % (A) 80 %; Platelet Count 139 k/uL (150-450); RBC 4.01 m/uL (3.80-5.40); RDW 13.8 % (11.5-15.5); WBC 6.8 k/uL (3.8-10.6)
[2018-01-12 09:32] LABS: Magnesium 2.3 mg/dL (1.6-2.3); Potassium 4.4 mmol/L (3.5-5.1)
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
[2018-01-12] MEDS: MAGNESIUM OXIDE 400 MG TAB PO SCH (12:18)
--- NOTE | 2018-01-12 13:10 | P.PN ---
Subjective Progress Note Date: 01/12/18 Principal diagnosis: Intractable nausea, vomiting. Multifocal nodular opacities in both lungs suggesting atypical pneumonitis or inflammatory etiology Jessica is a 72-year-old white female patient of Dr. Ulrich, who presented to the emergency department on 01/06/2018 at 1149 with complaints of intractable nausea, vomiting, some chills, dyspnea, constant chest discomfort over upper sternal area since Friday of this week. She states she does have some coughing spells, but her cough is dry, she is dyspneic on a regular basis due to her history of CHF and COPD, and this has not significantly changed from her baseline. She was just hospitalized for atypical chest pain, and complaints of nausea vomiting and diarrhea and discharged home on Friday01/04/2018 in stable condition. Her COPD was stable during that admission. During that stay her troponins were negative 3, influenza screen was negative. Dobutamine stress test was negative for cardiac ischemia. Patient had a ELLI on 03/11/2017 to assess the mechanism of the mitral regurgitation. It showed thickening and calcification of anterior mitral leaflet with poor coaptation of the anterior and posterior mitral leaflet. There was no definite evidence of any vegetation nor was there any definite evidence of any mitral valve prolapse or flail mitral leaflet. There was moderate to severe mitral regurgitation, and there was mild to moderate tricuspid regurgitation noted. CT angiogram was positive for areas of pneumonitis versus or edema. Patient did not have any acute respiratory symptoms during that stay, no fever, no chills, no chest congestion or increased sputum production. She was discharged home on Levaquin, oral Lasix 20 mg at bedtime, Pulmicort nebIlan shelby and was instructed to follow-up with Dr. Ricketts in the office. Patient does have an underlying history of COPD , has home oxygen at 2-3 L per nasal cannula at bedtime and as needed, coronary artery disease, congestive heart failure, CVA/TIA, fibromyalgia, hyperlipidemia , hypertension, hypothyroidism, chronic back pain, restless leg syndrome. She did have cervical neck fusions, right shoulder replacement, right knee replacement surgeries, bilateral, cataract surgeries, appendectomy and cholecystectomy, Gogo fundoplication. She had an EGD in the past for her symptoms of nausea vomiting, weight loss, which did not show any evidence of peptic ulcer disease or Kristy. During this admission, lab work is negative for any evidence of leukocytosis, WBC is 8.0, hemoglobin is 13.5, INR is 1.2, electrolytes are within normal limits, renal profile is normal, liver enzymes within normal limits, troponin was negative 1, proBNP was elevated at 1360, C-reactive protein was 25.1, ESR was 39, plasma lactic acid was within normal limits at 1.2. Urinalysis showed trace protein, 2+ ketones, and moderate amount of blood. Leukocyte esterase was negative, there was a rare bacteria and rare mucus. Influenza screen was negative. Patient states she has been unable to eat or drink since she returned home on Friday. Every time she takes a drink, she has vomiting. She states her emesis consist of phlegmy material and some bilious output with it. She denies any diarrhea, her last bowel movement was on Friday and it was quiet hard, requiring her to strain to pass it. During last admission while inpatient she was having some diarrhea, which had resolved. She denies any abdominal pain other than when she sits up there is some abdominal wall discomfort over the lower abdomen. Her abdomen is soft, as no guarding noted. Chest x-ray showed pulmonary venous hypertension and interstitial edema. CT chest shows persistent multifocal reticulonodular opacities within both lungs with tree-in-bud opacity within the right upper lobe similar to the exam from suggesting atypical pneumonitis or infectious or inflammatory etiology. Patient was started on Rocephin, azithromycin, nebulized treatments, and admitted for further management. Legionella urine antigen was sent, pending at this time. Blood cultures, sputum culture and urine cultures, as well as mycoplasma IgG and IgM were ordered and are pending at this time. On 01/08/2018 patient seen again in follow-up on medical surgical floor. She hasn't had any episodes of vomiting since admission. She denies any acute dyspnea, chest congestion or sputum production. Remains afebrile, vital signs are stable. Currently on room air with O2 sat at 96%. Urine and blood culture remained negative at the 24-hour umesh. 2-D echocardiogram from 01/07/2018 has been reviewed and showed left ventricular systolic function within low-normal limit with EF between 50-55%, severe mitral regurgitation was again noted. Today's labs show no evidence of leukocytosis, electrolytes and renal profile remained within normal limits. Serum cortisol was low, at 5. Yesterday we added stress doses of hydrocortisone at 100 mg every 8 hours IV. Patient remains on combination of Zithromax and Rocephin, awaiting the final results of the Legionella and Mycoplasma antigen workup. Patient will be scheduled for bronchoscopy tomorrow on 01/09/[address] Ricketts so bronchial cultures can be obtained. Patient is in agreement. On 01/09/2018 patient seen in follow-up. No nausea or vomiting since admission. Vital signs are stable, patient remains afebrile. On 2 L per nasal cannula her O2 sat is 93%. Blood, urine are negative and sputum culture is currently pending. Chest x-ray from 01/08/2018 shows some improvement in aeration. Today's lab work shows the previous history of 6.9, hemoglobin 12.2, no electrolyte or renal profile abnormality. Lung sounds are positive for rales over left lower lobe. Clear on the right. Patient denies any acute dyspnea, no significant sputum production. No fevers, no chills. The patient is seen again today 01/10/2018 in follow-up on the regular medical floor. She is seen sitting up in bed and resting quite comfortably. She denies any worsening shortness of breath, cough or congestion. Bronchial washings reveal no growth thus far. Cytology is pending. She denies any worsening shortness of breath, cough or congestion. She still has some complaints of nausea. She has been afebrile. Maintaining good O2 saturations in the mid to upper 90s on 2 L/m per nasal cannula. She's been afebrile. No leukocytosis. Hemoglobin 13.0. Creatinine 0.70. On 01/11/2018 patient seen in follow-up. She reports nausea and several episodes of vomiting since yesterday. She is currently on clear liquid diet. She again states she feels like she has no willpower to keep going. From pulmonary standpoint she denies any acute dyspnea, her lung sounds are positive for bibasilar crackles, she is on 2 L per nasal cannula with O2 sat 98%. He is afebrile, vital signs stable. Bronchial wash cultures are pending, AFB smear is negative. Mycoplasma and Legionella antigen were negative. Patient continues on a combination of Rocephin and Zithromax. Diflucan was added by attending physician. Yesterday we recommended GI service consult in regards to patient's ongoing symptoms of nausea and vomiting. On 01/12/2018 patient seen again in follow-up. There hasn't been any episodes of vomiting today, patient still complains of nausea. Currently on full liquid diet, tolerating it well. Denies any abdominal pain. No specific pulmonary complaints, lung sounds are positive for bibasilar crackles, but no wheezes or rhonchi noted. No acute dyspnea, no fever, no chills, no chest congestion. She was seen in consultation by GI service. She is currently on 2 L per nasal cannula with O2 sat at 92%. Vital signs remain stable. Bronchial washings are positive for Kristy albicans, which is thought to be colonized specimen. AFB smear was negative. AFB culture is pending. Patient continues on combination of Zithromax and Rocephin, Diflucan, nebulized treatments, she continues on hydrocortisone. We have spoke to the infectious disease doctor, who has recommended patient to continue on Levaquin 750 mg for 7 more days after discharge. Objective - Vital Signs Vital signs: Vital Signs Temp 97.0 F L 01/12/18 06:36 Pulse 79 01/12/18 08:44 Resp 20 01/12/18 08:00 BP 119/71 01/12/18 06:36 Pulse Ox 99 01/12/18 09:44 Intake & Output 01/11/18 01/12/18 01/12/18 18:59 06:59 18:59 Intake Total 960 400 240 Balance 960 400 240 Weight 81.5 kg Intake: Oral 960 400 240 Other: Voiding Method Bedside Commode Bedside Commode Bedside Commode Diaper Diaper Diaper # Voids 1 4 1 # Bowel Movements 0 - Exam GENERAL EXAM: Alert, pleasant, 72-year-old white female comfortable in no apparent distress. HEAD: Normocephalic/atraumatic. EYES: Normal reaction of pupils, equal size. Conjunctiva pink, sclera white. NOSE: Clear with pink turbinates. THROAT: No erythema or exudates. NECK: No masses, no JVD, no thyroid enlargement, no adenopathy. CHEST: No chest wall deformity. Symmetrical expansion. LUNGS: Diffuse crackles over bilateral bases, no rhonchi or wheezing noted. CVS: Regular rate and rhythm, normal S1 and S2, no gallops, no murmurs, no rubs ABDOMEN: Soft, nontender. No hepatosplenomegaly, normal bowel sounds, no guarding or rigidity. EXTREMITIES: No clubbing, no cyanosis, 2+ pulses and upper and lower extremities. Mild pretibial edema edema MUSCULOSKELETAL: Muscle strength and tone normal. SPINE: No scoliosis or deformity SKIN: No rashes CENTRAL NERVOUS SYSTEM: Alert and oriented -3. No focal deficits, tone is normal in all 4 extremities. PSYCHIATRIC: Alert and oriented -3. Appropriate affect. Intact judgment and insight. - Labs CBC & Chem 7: 01/12/18 08:36 01/12/18 08:36 Labs: Abnormal Lab Results - Last 24 Hours (Table) 01/12/18 Range/Units 08:36 MCV 101.4 H (80.0-100.0) fL Plt Count 139 L (150-450) k/uL Lymphocytes # 0.9 L (1.0-4.8) k/uL Microbiology - Last 24 Hours (Table) 01/09/18 12:10 Fungal Culture - Preliminary Bronchial Washings - Right Kristy albicans 01/06/18 17:03 Blood Culture - Preliminary Blood No Growth after 120 hours 01/09/18 12:10 Gram Stain - Final Bronchial Washings - Right Bronchial Washings Culture - Final Kristy albicans Assessment and Plan Plan: Assessment: #1. Intractable nausea, vomiting, constipation, of unclear etiology, resolved. KUB x-ray positive for enteritis, colitis. Workup for atypical antigens, Legionella and Mycoplasma is negative #2. Multifocal reticular nodular opacities within both lungs seen on CT chest from 01/06/2018 and 01/01/2018 suggesting atypical pneumonitis or inflammatory etiology. Patient is status post bronchoscopy with BAL on 01/09/[address] Ricketts, bronch wash cultures are positive for Kristy albicans #3. Mild diastolic heart failure, last echo on 12/28/2016 showed EF of 60-65%. #4. History of moderate to severe mitral regurgitation, being medically treated #5. Recent admission with similar symptoms of nausea, vomiting, diarrhea and atypical chest pain. Dobutamine stress echo was negative for any evidence of ischemia. Patient's COPD was stable during last admission, patient was sent home on Levaquin and her maintenance inhalers and nebulized treatments. #6. Chronic hypoxic respiratory failure due to advanced COPD and chronic CHF without hypercapnia #7. Nicotine dependence, currently in remission #8. History of CVA/TIA #9. Hypertension, hyperlipidemia #10. Hypothyroidism #11. Fibromyalgia, chronic pain syndrome #12. Coronary artery disease Plan: Legionella and Mycoplasma antigen workup was negative, bronchial washing cultures are only positive for Kristy albicans which is thought to be on the specimen. Continue with current plan of treatment, from pulmonary standpoint patient remains stable. She could be discharged home from pulmonary standpoint , we have spoken to the infectious disease service who has recommended Levaquin 750 mg daily for 7 more days after discharge. GI service consultation was noted. Patient hasn't had any more vomiting today, but is complaining of some nausea. I performed a history & physical examination of the patient and discussed their management with my nurse practitioner, Rhonda Go. I reviewed the nurse practitioner's note and agree with the documented findings and plan of care. Lung sounds are positive for bibasilar rales. The findings and the impression was discussed with the patient. I attest to the documentation by the nurse practitioner. Time with Patient: Less than 30
[2018-01-12 14:15] VITALS: BMI 35.1
[2018-01-12] MEDS: AZITHROMYCIN 500 MG TAB PO SCH (15:57)
--- NOTE | 2018-01-12 15:58 | PN ---
PROGRESS NOTE DATE OF SERVICE: 01/12/2018 REASON FOR FOLLOWUP: Pneumonia, possibly atypical. INTERVAL HISTORY: The patient is afebrile. She has been breathing comfortably. No further vomiting. Still feeling some nausea today, though. No chest pain. No abdominal pain. No diarrhea. PHYSICAL EXAMINATION: Blood pressure 119/71 with a pulse of 60, temperature 97. She is 99% on 2 L nasal cannula. General description is an elderly female up in the bed in no distress. RESPIRATORY SYSTEM: Unlabored breathing. Clear to auscultation anteriorly. HEART: S1, S2. Regular rate and rhythm. ABDOMEN: Soft. No tenderness. LABS: Hemoglobin 12.7, white count 6.8. Bronch cultures are showing Kristy albicans. DIAGNOSTIC IMPRESSION AND PLAN: Patient with bilateral nodular pattern with concern for atypical pulmonary infection, atypical, status post bronch. AFB cultures so far negative organisms in the sputum culture. May give a short course of oral Levaquin with close outpatient followup. Plan of care discussed with the nurse practitioner for Pulmonary. Continue supportive care. MMODL / IJN: [id number] / EMELINA
[2018-01-12] MEDS: diphenhydrAMINE 25 MG CAP PO PRN (22:25)
[2018-01-12] MEDS: ATORVASTATIN 10 MG TAB PO SCH (22:26)
--- NOTE | 2018-01-12 22:36 | P.PN ---
Progress Note - Text Progress Note Date: 01/12/18 Presenting complaint: Nausea vomiting Interval history: This patient presented with nausea vomiting. Also felt to have possible pneumonia. Status post bronchoscopy. Found to have significant pharyngeal thrush Today-patient doing much better after being started on Diflucan. Has had no nausea vomiting. Has been gardening on a diet. Had a bowel movement. Breathing is much improved. Sitting up comfortable cracking jokes and laughing when I walked in. Review of systems: Was done for constitutional, cardiovascular, GI, pulmonary. relevant finding as above Current medications reviewed that included: Zithromax by mouth, Pulmicort nebulizer, ceftriaxone IV, Duragesic patch, bronchodilators, IV fluids On exam: VITAL SIGNS: 97.1, 85, 20, 104/61, 95% on 3 L GENERAL APPEARANCE: Propped up in bed, tired appearing HEENT: External appearance of nose and ears normal. Oral cavity shows white patches in the pharynx. EYES: Pupils equal. Conjunctiva normal. NECK: JVD not raised. Mass not palpable. RESPIRATORY: Respiratory effort increased, decreased breath sounds with improvement entry. CARDIOVASCULAR: First and second sounds normal. No edema. ABDOMEN: Soft. Liver and spleen not palpable. No tenderness. No mass palpable. PSYCHIATRY: Alert and oriented x3. Mood and affect anxious appearing. Investigations: White count 6.8, potassium 4.4 Urine Legionella antigen negative Assessment: -Atypical pneumonitis with multifocal reticular nodular opacities in both the lungs per computed tomography scan. Currently on antibiotics per pulmonary and ID. -Oropharyngeal candidiasis infection in a patient who's been on antibiotics and inhaled steroids -Chronic congestive heart failure from dust or dysfunction EF 55-60% from hypertensive heart disease -Hyperlipidemia -Chronic fibronodular -Essential hypertension -Restless leg syndrome -Hypothyroidism -COPD in an ex-smoker -Gait dysfunction and a baseline uses a walker -Chronic hypoxic respiratory failure on 2-3 L of oxygen from COPD -Chronic hiatal hernia -Moderate secondary pulmonary hypertension secondary to COPD -Severe mitral regurgitation, non-rheumatic Plan: Patient doing much better. IV antibiotics can be discontinued after today. Switch to by mouth Levaquin per ID. This was discussed with the patient. We' ll hopefully discharge the patient tomorrow.
[2018-01-13] MEDS: HYDROcodone/APAP 10-325MG 1 EACH TAB PO PRN ×2 (00:18→06:28)
[2018-01-13] MEDS: TEMAZEPAM 15 MG CAP PO PRN (00:18)
[2018-01-13] MEDS: HYDROCORTISONE SUCCINATE 100 MG/2 ML VIAL IV SCH ×2 (00:19→08:09)
[2018-01-13] MEDS: SODIUM CHLORIDE 0.9% 1,000 ML IV SCH ×3 (06:28→06:29)
[2018-01-13] MEDS: LEVOTHYROXINE 112 MCG TAB PO SCH (06:28)
[2018-01-13] MEDS: IPRATROPIUM 0.5 MG/2.5 ML NEBU INHALATION SCH ×2 (07:59→13:41)
[2018-01-13] MEDS: BUDESONIDE 1 MG/2 ML NEBU INHALATION SCH (07:59)
[2018-01-13] MEDS: HEPARIN SODIUM,PORCINE 5,000 UNIT/ML 1 ML VIAL SQ SCH (08:10)
[2018-01-13] MEDS: FLUTICASONE 50MCG/SPRAY NASAL 16GM EA NOSTRIL SCH (08:10)
[2018-01-13] MEDS: PANTOPRAZOLE 40 MG TABLET PO SCH (08:10)
[2018-01-13] MEDS: FLUoxetine HCL 20 MG CAP PO SCH (08:10)
[2018-01-13] MEDS: POLYETHYLENE GLYCOL 3350 17 GM POWD.PACK PO SCH (08:11)
[2018-01-13] MEDS: SPIRONOLACTONE 25 MG TAB PO SCH (08:11)
[2018-01-13] MEDS: PREGABALIN 75 MG CAP PO SCH (08:15)
[2018-01-13] MEDS: FLUCONAZOLE 100 MG TAB PO SCH (08:20)
[2018-01-13] MEDS ORDERED: FLUCONAZOLE 100 MG TAB PO SCH (09:00)
[2018-01-13] MEDS ORDERED: LEVOFLOXACIN 750 MG TAB PO SCH (09:00)
--- NOTE | 2018-01-13 09:22 | P.PN ---
Subjective Progress Note Date: 01/13/18 Principal diagnosis: Intractable nausea, vomiting. Multifocal nodular opacities in both lungs suggesting atypical pneumonitis or inflammatory etiology Jessica is a 72-year-old white female patient of Dr. Ulrich, who presented to the emergency department on 01/06/2018 at 1149 with complaints of intractable nausea, vomiting, some chills, dyspnea, constant chest discomfort over upper sternal area since Friday of this week. She states she does have some coughing spells, but her cough is dry, she is dyspneic on a regular basis due to her history of CHF and COPD, and this has not significantly changed from her baseline. She was just hospitalized for atypical chest pain, and complaints of nausea vomiting and diarrhea and discharged home on Friday01/04/2018 in stable condition. Her COPD was stable during that admission. During that stay her troponins were negative 3, influenza screen was negative. Dobutamine stress test was negative for cardiac ischemia. Patient had a ELLI on 03/11/2017 to assess the mechanism of the mitral regurgitation. It showed thickening and calcification of anterior mitral leaflet with poor coaptation of the anterior and posterior mitral leaflet. There was no definite evidence of any vegetation nor was there any definite evidence of any mitral valve prolapse or flail mitral leaflet. There was moderate to severe mitral regurgitation, and there was mild to moderate tricuspid regurgitation noted. CT angiogram was positive for areas of pneumonitis versus or edema. Patient did not have any acute respiratory symptoms during that stay, no fever, no chills, no chest congestion or increased sputum production. She was discharged home on Levaquin, oral Lasix 20 mg at bedtime, Pulmicort nebIlan shelby and was instructed to follow-up with Dr. Ricketts in the office. Patient does have an underlying history of COPD , has home oxygen at 2-3 L per nasal cannula at bedtime and as needed, coronary artery disease, congestive heart failure, CVA/TIA, fibromyalgia, hyperlipidemia , hypertension, hypothyroidism, chronic back pain, restless leg syndrome. She did have cervical neck fusions, right shoulder replacement, right knee replacement surgeries, bilateral, cataract surgeries, appendectomy and cholecystectomy, Gogo fundoplication. She had an EGD in the past for her symptoms of nausea vomiting, weight loss, which did not show any evidence of peptic ulcer disease or Kristy. During this admission, lab work is negative for any evidence of leukocytosis, WBC is 8.0, hemoglobin is 13.5, INR is 1.2, electrolytes are within normal limits, renal profile is normal, liver enzymes within normal limits, troponin was negative 1, proBNP was elevated at 1360, C-reactive protein was 25.1, ESR was 39, plasma lactic acid was within normal limits at 1.2. Urinalysis showed trace protein, 2+ ketones, and moderate amount of blood. Leukocyte esterase was negative, there was a rare bacteria and rare mucus. Influenza screen was negative. Patient states she has been unable to eat or drink since she returned home on Friday. Every time she takes a drink, she has vomiting. She states her emesis consist of phlegmy material and some bilious output with it. She denies any diarrhea, her last bowel movement was on Friday and it was quiet hard, requiring her to strain to pass it. During last admission while inpatient she was having some diarrhea, which had resolved. She denies any abdominal pain other than when she sits up there is some abdominal wall discomfort over the lower abdomen. Her abdomen is soft, as no guarding noted. Chest x-ray showed pulmonary venous hypertension and interstitial edema. CT chest shows persistent multifocal reticulonodular opacities within both lungs with tree-in-bud opacity within the right upper lobe similar to the exam from suggesting atypical pneumonitis or infectious or inflammatory etiology. Patient was started on Rocephin, azithromycin, nebulized treatments, and admitted for further management. Legionella urine antigen was sent, pending at this time. Blood cultures, sputum culture and urine cultures, as well as mycoplasma IgG and IgM were ordered and are pending at this time. On 01/08/2018 patient seen again in follow-up on medical surgical floor. She hasn't had any episodes of vomiting since admission. She denies any acute dyspnea, chest congestion or sputum production. Remains afebrile, vital signs are stable. Currently on room air with O2 sat at 96%. Urine and blood culture remained negative at the 24-hour umesh. 2-D echocardiogram from 01/07/2018 has been reviewed and showed left ventricular systolic function within low-normal limit with EF between 50-55%, severe mitral regurgitation was again noted. Today's labs show no evidence of leukocytosis, electrolytes and renal profile remained within normal limits. Serum cortisol was low, at 5. Yesterday we added stress doses of hydrocortisone at 100 mg every 8 hours IV. Patient remains on combination of Zithromax and Rocephin, awaiting the final results of the Legionella and Mycoplasma antigen workup. Patient will be scheduled for bronchoscopy tomorrow on 01/09/[address] Ricketts so bronchial cultures can be obtained. Patient is in agreement. On 01/09/2018 patient seen in follow-up. No nausea or vomiting since admission. Vital signs are stable, patient remains afebrile. On 2 L per nasal cannula her O2 sat is 93%. Blood, urine are negative and sputum culture is currently pending. Chest x-ray from 01/08/2018 shows some improvement in aeration. Today's lab work shows the previous history of 6.9, hemoglobin 12.2, no electrolyte or renal profile abnormality. Lung sounds are positive for rales over left lower lobe. Clear on the right. Patient denies any acute dyspnea, no significant sputum production. No fevers, no chills. The patient is seen again today 01/10/2018 in follow-up on the regular medical floor. She is seen sitting up in bed and resting quite comfortably. She denies any worsening shortness of breath, cough or congestion. Bronchial washings reveal no growth thus far. Cytology is pending. She denies any worsening shortness of breath, cough or congestion. She still has some complaints of nausea. She has been afebrile. Maintaining good O2 saturations in the mid to upper 90s on 2 L/m per nasal cannula. She's been afebrile. No leukocytosis. Hemoglobin 13.0. Creatinine 0.70. On 01/11/2018 patient seen in follow-up. She reports nausea and several episodes of vomiting since yesterday. She is currently on clear liquid diet. She again states she feels like she has no willpower to keep going. From pulmonary standpoint she denies any acute dyspnea, her lung sounds are positive for bibasilar crackles, she is on 2 L per nasal cannula with O2 sat 98%. He is afebrile, vital signs stable. Bronchial wash cultures are pending, AFB smear is negative. Mycoplasma and Legionella antigen were negative. Patient continues on a combination of Rocephin and Zithromax. Diflucan was added by attending physician. Yesterday we recommended GI service consult in regards to patient's ongoing symptoms of nausea and vomiting. On 01/12/2018 patient seen again in follow-up. There hasn't been any episodes of vomiting today, patient still complains of nausea. Currently on full liquid diet, tolerating it well. Denies any abdominal pain. No specific pulmonary complaints, lung sounds are positive for bibasilar crackles, but no wheezes or rhonchi noted. No acute dyspnea, no fever, no chills, no chest congestion. She was seen in consultation by GI service. She is currently on 2 L per nasal cannula with O2 sat at 92%. Vital signs remain stable. Bronchial washings are positive for Kristy albicans, which is thought to be colonized specimen. AFB smear was negative. AFB culture is pending. Patient continues on combination of Zithromax and Rocephin, Diflucan, nebulized treatments, she continues on hydrocortisone. We have spoke to the infectious disease doctor, who has recommended patient to continue on Levaquin 750 mg for 7 more days after discharge. On 01/13/2018 patient seen in follow-up. No episodes of vomiting since yesterday. Denies any nausea. She is tolerating full liquid diet quite well. Vital signs are stable, patient remains afebrile. She continues on 2 L per nasal cannula with O2 sat at 100%. Lung sounds are only positive for some minimal crackles at the bases. Patient denies any acute dyspnea, or chest congestion. Bronchial washing culture was negative, there was Kristy albicans on the fungal culture. She was started on oral Levaquin starting today, she completed her course of Rocephin and Zithromax, continues on oral Diflucan. From pulmonary standpoint she stable for discharge home today. Objective - Vital Signs Vital signs: Vital Signs Temp 97.8 F 01/13/18 06:34 Pulse 71 01/13/18 08:13 Resp 22 01/13/18 06:34 BP 123/76 01/13/18 06:34 Pulse Ox 100 01/13/18 07:59 Intake & Output 01/12/18 01/13/18 01/13/18 18:59 06:59 18:59 Intake Total 240 Balance 240 Weight 81.5 kg 81.5 kg Intake: Oral 240 Other: Voiding Method Bedside Commode Bedside Commode # Voids 2 2 # Bowel Movements 1 - Exam GENERAL EXAM: Alert, pleasant, 72-year-old white female comfortable in no apparent distress. HEAD: Normocephalic/atraumatic. EYES: Normal reaction of pupils, equal size. Conjunctiva pink, sclera white. NOSE: Clear with pink turbinates. THROAT: No erythema or exudates. NECK: No masses, no JVD, no thyroid enlargement, no adenopathy. CHEST: No chest wall deformity. Symmetrical expansion. LUNGS: Minimal crackles over bilateral bases, no rhonchi or wheezing noted. CVS: Regular rate and rhythm, normal S1 and S2, no gallops, no murmurs, no rubs ABDOMEN: Soft, nontender. No hepatosplenomegaly, normal bowel sounds, no guarding or rigidity. EXTREMITIES: No clubbing, no cyanosis, 2+ pulses and upper and lower extremities. Mild pretibial edema edema MUSCULOSKELETAL: Muscle strength and tone normal. SPINE: No scoliosis or deformity SKIN: No rashes CENTRAL NERVOUS SYSTEM: Alert and oriented -3. No focal deficits, tone is normal in all 4 extremities. PSYCHIATRIC: Alert and oriented -3. Appropriate affect. Intact judgment and insight. - Labs CBC & Chem 7: 01/12/18 08:36 01/12/18 08:36 Labs: Abnormal Lab Results - Last 24 Hours (Table) 01/12/18 Range/Units 08:36 MCV 101.4 H (80.0-100.0) fL Plt Count 139 L (150-450) k/uL Lymphocytes # 0.9 L (1.0-4.8) k/uL Microbiology - Last 24 Hours (Table) 01/06/18 17:03 Blood Culture - Final Blood No Growth after 144 hours 01/09/18 12:10 Fungal Culture - Preliminary Bronchial Washings - Right Kristy albicans Assessment and Plan Plan: Assessment: #1. Intractable nausea, vomiting, constipation, of unclear etiology, resolved. KUB x-ray positive for enteritis, colitis. Workup for atypical antigens, Legionella and Mycoplasma is negative #2. Multifocal reticular nodular opacities within both lungs seen on CT chest from 01/06/2018 and 01/01/2018 suggesting atypical pneumonitis or inflammatory etiology. Patient is status post bronchoscopy with BAL on 01/09/[address] Ricketts, bronch wash cultures are positive for Kristy albicans #3. Mild diastolic heart failure, last echo on 12/28/2016 showed EF of 60-65%. #4. History of moderate to severe mitral regurgitation, being medically treated #5. Recent admission with similar symptoms of nausea, vomiting, diarrhea and atypical chest pain. Dobutamine stress echo was negative for any evidence of ischemia. Patient's COPD was stable during last admission, patient was sent home on Levaquin and her maintenance inhalers and nebulized treatments. #6. Chronic hypoxic respiratory failure due to advanced COPD and chronic CHF without hypercapnia #7. Nicotine dependence, currently in remission #8. History of CVA/TIA #9. Hypertension, hyperlipidemia #10. Hypothyroidism #11. Fibromyalgia, chronic pain syndrome #12. Coronary artery disease Plan: Patient remains stable from pulmonary standpoint, no acute pulmonary complaints , does become slightly dyspneic with exertion, but this is baseline for her. Bronchial washing culture was negative, fungal culture was positive for Kristy albicans. Patient was started on oral Levaquin starting today, Rocephin and Zithromax were discontinued per ID service recommendation. Patient is stable for discharge home today. She will need follow-up appointment with Dr. Ricketts in the office in 7 days. I performed a history & physical examination of the patient and discussed their management with my nurse practitioner, Rhonda Go. I reviewed the nurse practitioner's note and agree with the documented findings and plan of care. Lung sounds are positive for minimal rales. The findings and the impression was discussed with the patient. I attest to the documentation by the nurse practitioner. Time with Patient: Less than 30
[2018-01-13] MEDS: MAGNESIUM OXIDE 400 MG TAB PO SCH (14:22)
--- NOTE | 2018-01-13 14:26 | PN ---
PROGRESS NOTE DATE OF SERVICE: 01/13/2018 REASON FOR FOLLOWUP: Pneumonia. INTERVAL HISTORY: The patient is afebrile. She is breathing comfortably. Denies having any chest pain. Very minimal cough, not bringing up any sputum. No further nausea OR vomiting. She has been tolerating a clear liquid diet. PHYSICAL EXAMINATION: Blood pressure 123/76 with a pulse of 73, temperature 97.8, she is 99% on 2 L nasal cannula. General description is an elderly female, up in the bed in no distress. RESPIRATORY SYSTEM: Unlabored breathing, clear to auscultation anteriorly. HEART: S1, S2. Regular rate and rhythm. ABDOMEN: Soft, no tenderness. EXTREMITIES: No edema of the feet. LABS: Hemoglobin 12.7, white count 6.8. Bronch culture mostly with Kristy. DIAGNOSTIC IMPRESSION AND PLAN: Patient with reticulonodular pattern on the CT with concern for possible atypical pneumonia or a DAO infection, status post bronchoscopy cultures currently showing a possible Kristy which is likely colonized. The AFB culture currently pending. She may go home on oral Levaquin with close outpatient follow up on this culture. Continue supportive care. MMODL / IJN: [id number] / MTDD
[2018-01-13 15:01] VITALS: BP 127/73; PULSE 97; RESP 16; TEMP 97.7
--- NOTE | 2018-01-13 19:09 | P.DS ---
Providers Date of admission: 01/07/18 12:51 Expected date of discharge: 01/13/18 Attending physician: Tom Sequeira Consults: 01/06/18 15:56 Consult Physician Routine Consulting Provider: Jan Faustin Consult Reason/Comments: pneumonia Do you want consulting provider notified?: Yes 01/07/18 00:37 Consult Physician Routine Consulting Provider: Linden Hermosillo Consult Reason/Comments: pneumonia?? Do you want consulting provider notified?: Yes Primary care physician: Ajay [facility] Course: Hospital course: Patient admitted with nausea vomiting. Found to have pneumonia. Status post bronchoscopy. Cultures came back negative. Patient found a significant oropharyngeal thrush. Treated with Diflucan. By the time of discharge starting a diet. No more nausea vomiting. 2-D echo-showed mitral stenosis and mitral regurgitation moderate Bronchoscopy was done Computed tomography scan of the chest showed persistent multifocal reticular- nodular opacities On examination: Sitting up in bed. Comfortable Lungs decreased breath sounds, no further crackles Psych-AO 3 Patient Condition at Discharge: Stable Plan - Discharge Summary Discharge Rx Participant: Yes New Discharge Prescriptions: New Levofloxacin [Levaquin] 750 mg PO DAILY 7 Days #7 tab Fluconazole [Diflucan] 100 mg PO DAILY #10 tab Omeprazole [PriLOSEC] 20 mg PO AC-BRKFST #30 cap Polyethylene Glycol 3350 [Miralax] 17 gm PO DAILY powd.pack predniSONE 0 mg PO DIRECTED #10 tab Continue Simvastatin [Zocor] 20 mg PO HS rOPINIRole HCL [Requip] 3 mg PO TID Pregabalin [Lyrica] 150 mg PO TID HYDROcodone/APAP 10-325MG [Diamond 10-325] 1 tab PO Q6H PRN PRN Reason: Pain Aspirin/Dipyridamole [Aggrenox 25MG -200MG] 1 tab PO BID Levothyroxine Sodium [Synthroid] 112 mcg PO DAILY Ipratropium Nebulized [Atrovent Nebulized] 0.5 mg INHALATION RT-TID Ondansetron Odt [Zofran ODT] 4 mg PO Q8H PRN PRN Reason: Nausea Budesonide [Pulmicort] 1 mg INHALATION RT-BID Fluticasone Nasal Rosebud [Flonase Nasal Rosebud] 1 spr EA NOSTRIL DAILY FLUoxetine HCL [PROzac] 20 mg PO DAILY Spironolactone [Aldactone] 25 mg PO DAILY Furosemide [Lasix] 20 mg PO HS Magnesium Oxide 400 mg PO DAILY fentaNYL 12MCG/HR PATCH [Duragesic 12MCG/HR] 1 patch TRANSDERM Q72H Nitroglycerin Sl Tabs [Nitrostat] 0.4 mg SUBLINGUAL Q5M PRN #25 tab PRN Reason: Chest Pain Discontinued Levofloxacin [Levaquin] 750 mg PO DAILY@1400 #4 tab Discharge Medication List Simvastatin [Zocor] 20 mg PO HS 11/10/14 [History] Aspirin/Dipyridamole [Aggrenox 25MG -200MG] 1 tab PO BID 01/16/17 [History] HYDROcodone/APAP 10-325MG [Diamond 10-325] 1 tab PO Q6H PRN 01/16/17 [History] Pregabalin [Lyrica] 150 mg PO TID 01/16/17 [History] rOPINIRole HCL [Requip] 3 mg PO TID 01/16/17 [History] Levothyroxine Sodium [Synthroid] 112 mcg PO DAILY 06/04/17 [History] Budesonide [Pulmicort] 1 mg INHALATION RT-BID 12/31/17 [History] FLUoxetine HCL [PROzac] 20 mg PO DAILY 12/31/17 [History] Fluticasone Nasal Rosebud [Flonase Nasal Rosebud] 1 spr EA NOSTRIL DAILY 12/31/17 [ History] Furosemide [Lasix] 20 mg PO HS 12/31/17 [History] Ipratropium Nebulized [Atrovent Nebulized] 0.5 mg INHALATION RT-TID 12/31/17 [ History] Magnesium Oxide 400 mg PO DAILY 12/31/17 [History] Ondansetron Odt [Zofran ODT] 4 mg PO Q8H PRN 12/31/17 [History] Spironolactone [Aldactone] 25 mg PO DAILY 12/31/17 [History] fentaNYL 12MCG/HR PATCH [Duragesic 12MCG/HR] 1 patch TRANSDERM Q72H 12/31/17 [ History] Nitroglycerin Sl Tabs [Nitrostat] 0.4 mg SUBLINGUAL Q5M PRN #25 tab 01/02/18 [Rx ] Levofloxacin [Levaquin] 750 mg PO DAILY 7 Days #7 tab 01/12/18 [Rx] Fluconazole [Diflucan] 100 mg PO DAILY #10 tab 01/13/18 [Rx] Omeprazole [PriLOSEC] 20 mg PO AC-BRKFST #30 cap 01/13/18 [Rx] Polyethylene Glycol 3350 [Miralax] 17 gm PO DAILY powd.pack 01/13/18 [Rx] predniSONE 0 mg PO DIRECTED #10 tab 01/13/18 [Rx] Follow up Appointment(s)/Referral(s): Jan Faustin MD [STAFF PHYSICIAN] - 01/21/18 2:30 pm Ajay Ulrich DO [Primary Care Provider] - 01/16/18 1:15 pm [facility] Visiting Nurse, [NON-STAFF] - Patient Instructions/Handouts: Heart Failure (DC), Pneumonitis (DC), Enteritis (DC) Activity/Diet/Wound Care/Special Instructions: Cardiac, low fat diet. Pt has heart failure booklet. Activity as tolerated. Discharge Disposition: HOME WITH HOME HEALTH SERVICES
== END 2018-01-13 15:39 | disposition home health service (06) | DRG 987 ==
LOC: EC 11:49 → 3OBS 13:44 → OBSVTOIN 01-07 12:51 → 4MS4W 01-07 16:11
PROVIDERS: ADMIT Hospitalist; ATTEND Hospitalist
PROC: 0B9D8ZX Drainage of Right Middle Lung Lobe, Via Natural or Artificial Opening Endoscopic, Diagnostic (ICD-10-PCS; 2018-01-09)
PROC: 0B9H8ZX Drainage of Lung Lingula, Via Natural or Artificial Opening Endoscopic, Diagnostic (ICD-10-PCS; principal; 2018-01-09 12:10)
DX: K52.9 Noninfective gastroenteritis and colitis, unspecified (principal); J18.9 Pneumonia, unspecified organism; B37.1 Pulmonary candidiasis; J96.11 Chronic respiratory failure with hypoxia; B37.0 Candidal stomatitis; I11.0 Hypertensive heart disease with heart failure; I50.32 Chronic diastolic (congestive) heart failure; I27.29 Other secondary pulmonary hypertension; J44.0 Chronic obstructive pulmonary disease with (acute) lower respiratory infection; I08.1 Rheumatic disorders of both mitral and tricuspid valves; I25.10 Atherosclerotic heart disease of native coronary artery without angina pectoris; R26.9 Unspecified abnormalities of gait and mobility; F32.9 Major depressive disorder, single episode, unspecified; F40.240 Claustrophobia; M79.7 Fibromyalgia; E78.5 Hyperlipidemia, unspecified; K59.00 Constipation, unspecified; G89.4 Chronic pain syndrome; F17.201 Nicotine dependence, unspecified, in remission; E89.0 Postprocedural hypothyroidism; G25.81 Restless legs syndrome; Z82.49 Family history of ischemic heart disease and other diseases of the circulatory system; Z88.6 Allergy status to analgesic agent; Z88.1 Allergy status to other antibiotic agents; Z88.2 Allergy status to sulfonamides; Z88.8 Allergy status to other drugs, medicaments and biological substances; I25.2 Old myocardial infarction; Z86.73 Personal history of transient ischemic attack (TIA), and cerebral infarction without residual deficits; Z79.899 Other long term (current) drug therapy; Z79.891 Long term (current) use of opiate analgesic; Z79.51 Long term (current) use of inhaled steroids; Z87.01 Personal history of pneumonia (recurrent); Z99.81 Dependence on supplemental oxygen; Z98.1 Arthrodesis status; Z96.611 Presence of right artificial shoulder joint; Z96.651 Presence of right artificial knee joint; Z90.89 Acquired absence of other organs; Z90.49 Acquired absence of other specified parts of digestive tract; Z98.41 Cataract extraction status, right eye; Z98.42 Cataract extraction status, left eye; Z87.19 Personal history of other diseases of the digestive system; Z90.710 Acquired absence of both cervix and uterus; Z98.51 Tubal ligation status; Z79.82 Long term (current) use of aspirin
CPT/HCPCS: 31624; 36415; 71045; 71046; 71250; 74018; 80048; 80053; 81001; 82024; 82533; 82550; 82553; 83605; 83735; 83880; 84132; 84484; 85025; 85610; 85652; 85730; 86140; 86738; 87040; 87070; 87086; 87102; 87116; 87205; 87206; 87252; 87449; 87496; 87498; 87502; 87529; 87541; 87581; 87634; 87798; 88108; 88305; 89050; 93005; 93306; 94640; 94760; 96361; 96374; 99285

== ENCOUNTER 2018-05-06 09:58 | Inpatient (IN) | payer MEDICARE ==
[2018-05-06] MEDS ORDERED: IPRATROPIUM-ALBUTEROL 3 ML NEB INHALATION PRN (11:26)
[2018-05-06] MEDS ORDERED: PREGABALIN 75 MG CAP PO SCH (11:30)
[2018-05-06] MEDS ORDERED: SODIUM CHLORIDE 0.9% 1,000 ML IV SCH (11:30)
[2018-05-06] MEDS: IPRATROPIUM-ALBUTEROL 3 ML NEB INHALATION SCH ×3 (12:00→19:21)
[2018-05-06 12:08] LABS: Basophils % (A) 0 %; Eosinophils # (A) 0.1 k/uL (0-0.7); Eosinophils % (A) 1 %; HCT 39.9 % (34.0-46.0); HGB 13.2 gm/dL (11.4-16.0); Lymphocytes # (A) 0.5 k/uL (1.0-4.8); Lymphocytes % (A) 7 %; MCHC 33.1 g/dL (31.0-37.0); MCV 93.6 fL (80.0-100.0); Mean Platelet Volume 8.2; Monocytes # (A) 0.5 k/uL (0-1.0); Monocytes % (A) 7 %; Neutrophils # (A) 6.1 k/uL (1.3-7.7); Neutrophils % (A) 83 %; Platelet Count 115 k/uL (150-450); RBC 4.26 m/uL (3.80-5.40); RDW 13.6 % (11.5-15.5); WBC 7.3 k/uL (3.8-10.6)
[2018-05-06 12:09] LABS: Albumin 3.6 g/dL (3.5-5.0); Calcium 8.4 mg/dL (8.4-10.2); Potassium 3.9 mmol/L (3.5-5.1); Total Bilirubin 0.6 mg/dL (0.2-1.3); Total Protein 5.9 g/dL (6.3-8.2)
[2018-05-06] MEDS: LEVOFLOXACIN 750MG-D5W PMX 750 MG in DEXTROSE/WATER 1 150ML.BAG IVPB SCH (13:28)
[2018-05-06] MEDS: methylPREDNISolone SOD SUCCI 125 MG/2 ML VIAL IV SCH ×2 (13:36→17:14)
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
[2018-05-06] MEDS: PIPERACILLIN-TAZOBACTAM 3.375 GM in DEXTROSE/WATER 1 50ML.BAG IVPB SCH ×2 (15:37→15:40)
--- NOTE | 2018-05-06 16:00 | XR ---
EXAMINATION TYPE: XR chest 2V DATE OF EXAM: 05/06/2018 COMPARISON: 05/06/2018 TECHNIQUE: PA and lateral views submitted. HISTORY: COPD FINDINGS: Postsurgical change right shoulder. Bilateral consolidation and small effusion. Heart size mildly pro minent interstitial prominence. No pneumothorax. Arthropathy of the shoulders. IMPRESSION: 1. Bilateral infiltrate and pleural effusion correlate for mild CHF.
[2018-05-06] MEDS: HYDROcodone/APAP 10-325MG 1 EACH TAB PO PRN ×2 (16:12→22:20)
[2018-05-06] MEDS: PREGABALIN 75 MG CAP PO SCH ×2 (16:21→20:09)
[2018-05-06] MEDS: BUDESONIDE 1 MG/2 ML NEBU INHALATION SCH (19:21)
[2018-05-06] MEDS: FORMOTEROL FUMARATE 20 MCG/2 ML NEBU INHALATION SCH (19:38)
[2018-05-06] MEDS: HEPARIN SODIUM,PORCINE 5,000 UNIT/ML 1 ML VIAL SQ SCH (20:09)
[2018-05-06] MEDS: ATORVASTATIN 10 MG TAB PO SCH (20:10)
[2018-05-06] MEDS: DIPYRIDAMOLE-ASPIRIN 200-25 MG 1 EACH CPMP.12HR PO SCH (20:10)
[2018-05-06] MEDS: FAMOTIDINE 20 MG/2 ML VIAL IV SCH (20:10)
[2018-05-07] MEDS: PIPERACILLIN-TAZOBACTAM 3.375 GM in DEXTROSE/WATER 1 50ML.BAG IVPB SCH ×4 (02:24→23:37)
[2018-05-07] MEDS: methylPREDNISolone SOD SUCCI 125 MG/2 ML VIAL IV SCH ×5 (02:25→23:37)
[2018-05-07] MEDS: HYDROcodone/APAP 10-325MG 1 EACH TAB PO PRN ×3 (05:52→22:08)
[2018-05-07] MEDS: LEVOTHYROXINE 112 MCG TAB PO SCH (06:13)
[2018-05-07] MEDS: FORMOTEROL FUMARATE 20 MCG/2 ML NEBU INHALATION SCH ×2 (07:04→18:55)
[2018-05-07] MEDS: BUDESONIDE 1 MG/2 ML NEBU INHALATION SCH ×2 (07:04→18:55)
[2018-05-07] MEDS: IPRATROPIUM-ALBUTEROL 3 ML NEB INHALATION SCH ×4 (07:04→18:55)
--- NOTE | 2018-05-07 07:22 | P.PN ---
Subjective This is a pleasant 72 years old female with past medical history of coronary artery disease, heart failure, COPD, CVA/TIA, fibromyalgia, GERD, hyperlipidemia , hypertension, osteoarthritis, hypothyroidism, hallway today to see her pattern painter at the office and he sent her to the hospital as direct admission. No records in the paper chart. Patient was complaining of from progressive increasing dyspnea over the last 2 days associated with worsening cough and phlegm with grayish color associated with some chest tightness, no chest pain. No change in urine or bowel habits, no diarrhea. No fever. Patient has long history of COPD and chronic cough, she is oxygen dependent 2-3 L/m by nasal cannula, but she doesn't know if she uses prednisone at home On admission patient was short of breath she can finish her sentences because of her breathing difficulty 05/07/2018 Patient still dyspneic, and needs breathing treatments. Vitals look stable. She maintains good saturation on 2 L/m oxygen via [place], labs are reviewed showing WBC 7.3, sodium 139 creatinine 0.9S of the labs were unremarkable. Chest x-ray shows bilateral infiltrates and pleural effusion which correlates with mild CHF. Echo is ordered and pending. Also we going to check her troponin, we'll check EKG and she might benefit from continuing education specialist evaluation. Resume her home medication. Patient was noticed to be an Aggrenox [dipyridamole/aspirin] . patient states she has previous heart disease and and sometimes it was recommended open heart surgery for her but she wasn't sure for what reason, she denies history of cardiac cath Review of systems CONSTITUTIONAL: No fever, no malaise, no fatigue. HEENT: No recent visual problems or hearing problems. Denied any sore throat. CARDIOVASCULAR: No orthopnea, PND, no palpitations, no syncope. PULMONARY: No shortness of breath, no cough, no hemoptysis. GASTROINTESTINAL: No diarrhea, no nausea, no vomiting, no abdominal pain. Normoactive bowel sounds. NEUROLOGICAL: No headaches, no weakness, no numbness. HEMATOLOGICAL: Denies any bleeding or petechiae. GENITOURINARY: Denies any burning micturition, frequency, or urgency. MUSCULOSKELETAL/RHEUMATOLOGICAL: Denies any joint pain, swelling, or any muscle pain. ENDOCRINE: Denies any polyuria or polydipsia. Objective - Vital Signs Vital signs: Vital Signs Temp 98.1 F 06/21/18 05:36 Pulse 83 05/07/18 05:36 Resp 18 05/07/18 05:36 BP 105/63 05/07/18 05:36 Pulse Ox 97 05/07/18 05:36 Intake & Output 05/06/18 05/07/18 05/07/18 18:59 06:59 18:59 Intake Total 300 Balance 300 Weight 80.83 kg Intake: Oral 300 Other: Voiding Method Toilet Toilet # Voids 1 3 - Exam -GENERAL: The patient is alert and oriented x3, patient is dyspneic and she cannot finish her sentences, she is in moderate respiratory distress. Well developed, well nourished. HEENT: Pupils are round and equally reacting to light. EOMI. No scleral icterus. No conjunctival pallor. Normocephalic, atraumatic. No pharyngeal erythema. No thyromegaly. CARDIOVASCULAR: S1 and S2 present. No murmurs, rubs, or gallops. -PULMONARY: Chest is clear to auscultation, no crackles. Patient has bilateral wheezing with prolonged expiratory phase and decrease air entry both sides ABDOMEN: Soft, nontender, nondistended, normoactive bowel sounds. No palpable organomegaly. MUSCULOSKELETAL: No joint swelling or deformity. EXTREMITIES: No cyanosis, clubbing, or pedal edema. NEUROLOGICAL: Gross neurological examination did not reveal any focal deficits. SKIN: No rashes. - Labs CBC & Chem 7: 05/06/18 11:40 05/06/18 11:40 Labs: Abnormal Lab Results - Last 24 Hours (Table) 05/06/18 05/06/18 Range/Units 11:40 11:40 Plt Count 115 L (150-450) k/uL Lymphocytes # 0.5 L (1.0-4.8) k/uL Glucose 101 H (74-99) mg/dL Total Protein 5.9 L (6.3-8.2) g/dL Assessment and Plan Assessment: -Chronic obstructive lung disease, an acute exacerbation -History of CHF -History of CVA/TIA -History of fibromyalgia -GERD -Hyperlipidemia -Hypertension -Osteoarthritis -Hypothyroidism Plan: Patient will continue with the same breathing treatment, oxygen, and steroids. hold IV hydration and in view ofpossible chf. Pulmonary team consult. Patient was already started on antibiotic as per pulmonary team will continue with it. DVT and GI prophylaxis. Follow-up culture results. Patient chest x-ray shows possible CHF. Check EKG, troponin, echo and call cardiology consult. Further recommendation depends on patient's clinical course Prognosis is guarded given severity of her illness
[2018-05-07 07:30] LABS: Basophils % (A) 0 %; Eosinophils % (A) 0 %; HCT 41.4 % (34.0-46.0); HGB 13.4 gm/dL (11.4-16.0); Lymphocytes # (A) 0.4 k/uL (1.0-4.8); Lymphocytes % (A) 8 %; MCH 30.8 pg (25.0-35.0); MCHC 32.4 g/dL (31.0-37.0); MCV 94.8 fL (80.0-100.0); Mean Platelet Volume 8.5; Monocytes # (A) 0.2 k/uL (0-1.0); Monocytes % (A) 4 %; Neutrophils # (A) 3.6 k/uL (1.3-7.7); Neutrophils % (A) 87 %; Platelet Count 116 k/uL (150-450); RBC 4.36 m/uL (3.80-5.40); RDW 13.4 % (11.5-15.5); WBC 4.2 k/uL (3.8-10.6)
[2018-05-07 08:02] LABS: Albumin 3.6 g/dL (3.5-5.0); Bilirubin, Delta 0.2 mg/dL (0.0-0.2); Bilirubin,Unconjugated 0.3 mg/dL (0.0-1.1); Calcium 8.7 mg/dL (8.4-10.2); Potassium 4.5 mmol/L (3.5-5.1); Total Bilirubin 0.5 mg/dL (0.2-1.3)
[2018-05-07] MEDS: TRIMETHOBENZAMIDE 300 MG CAP PO PRN ×2 (08:42→18:06)
[2018-05-07] MEDS: DIPYRIDAMOLE-ASPIRIN 200-25 MG 1 EACH CPMP.12HR PO SCH ×2 (09:46→22:07)
[2018-05-07] MEDS: FUROSEMIDE 40 MG TAB PO SCH (09:47)
[2018-05-07] MEDS: FAMOTIDINE 20 MG/2 ML VIAL IV SCH (09:47)
[2018-05-07] MEDS: FLUoxetine HCL 20 MG CAP PO SCH (09:48)
[2018-05-07] MEDS: HEPARIN SODIUM,PORCINE 5,000 UNIT/ML 1 ML VIAL SQ SCH ×2 (09:48→22:07)
[2018-05-07] MEDS: MAGNESIUM OXIDE 400 MG TAB PO SCH (09:48)
[2018-05-07] MEDS: SPIRONOLACTONE 25 MG TAB PO SCH (09:48)
[2018-05-07] MEDS: PREGABALIN 75 MG CAP PO SCH ×3 (09:55→22:19)
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
[2018-05-07] MEDS: LEVOFLOXACIN 750MG-D5W PMX 750 MG in DEXTROSE/WATER 1 150ML.BAG IVPB SCH (12:16)
--- NOTE | 2018-05-07 13:42 | CDI ---
Last Revision, October 2017 Documentation Clarification Form Date: 05/07/18 3047 From: Shadia Quiñonez RN, CCDS Admit Date: 05/06/2018 10:30:00 AM Patient Name: Jessica Scanlon Visit Number: [id number] ATTENTION: The Clinical Documentation Specialists (CDI) and [facility] Coding Staff appreciate your assistance in clarifying documentation. Please respond to the clarification below the line at the bottom and electronically sign. The CDI & [facility] Coding staff will review the response and follow-up if needed. Please note: Queries are made part of the Legal Health Record. If you have any questions, please contact the author of this message via ITS. Dr. Grant Pneumonia was documented in your notes on 05/06 and requires further specificity History/Risk Factors: COPD, CHF, TIA, GERD Clinical Indicators: WBC: 7.3/4.2 Left shift: 6.1/3.6 CXR: Bilateral infiltrate and mild chf 05/07 Pulmonary Consult: "acute COPD exacerbation with suspected left lower lobe pneumonia." 05/07 Pulmonary Lung/Breathing assessment: "sounds are diminished bilaterally along with marked diminished breath sounds and diffuse expiratory wheezes heard throughout the lung chan bilaterally. Exhalation phases especially prolonged. Treatment: Antibiotics: Zosyn 3.375 gm IVPB q 8 hrs, Levaquin 750 mg IVPB q 24 hrs O2: 2-3 L NC Breathing TX: Duoneb QID and Q 2 hrs PRN, Pulmoicort BID In order to capture the severity of condition, please clarify if the condition signifies and you are treating for: Aspiration Pneumonia, identify if: Due to solids or liquids Bacterial Pneumonia, specify causal organism (if known) Gram Negative Pneumonia Due to Strep Due to Staph Due to E. coli Other bacteria (please specify) Other, please specify Unable to determine Please continue to document in your progress notes and discharge summary in order to capture severity of illness and risk of mortality. Include clinical findings that support your diagnosis. MTDD
[2018-05-07] MEDS ORDERED: FUROSEMIDE 10 MG/ML 4 ML VIAL IV STA (14:04)
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
[2018-05-07 20:39] LABS: Glucose,Whole Blood 176 mg/dL (75-99)
[2018-05-07] MEDS: ATORVASTATIN 10 MG TAB PO SCH (22:07)
[2018-05-07] MEDS: FAMOTIDINE 20 MG TAB PO SCH (22:07)
[2018-05-07] MEDS: INSULIN ASPART 100 UNIT/ML 1 ML 10 ML VIAL SQ SCH (22:08)
[2018-05-07] MEDS: TEMAZEPAM 15 MG CAP PO PRN (22:09)
[2018-05-08] MEDS: HYDROcodone/APAP 10-325MG 1 EACH TAB PO PRN ×3 (03:56→21:09)
[2018-05-08] MEDS: ALPRAZolam 0.25 MG TAB PO PRN (05:48)
[2018-05-08] MEDS: LEVOTHYROXINE 112 MCG TAB PO SCH (05:49)
[2018-05-08] MEDS: methylPREDNISolone SOD SUCCI 125 MG/2 ML VIAL IV SCH ×3 (05:49→17:37)
[2018-05-08 06:56] LABS: Glucose,Whole Blood 211 mg/dL (75-99)
[2018-05-08] MEDS: INSULIN ASPART 100 UNIT/ML 1 ML 10 ML VIAL SQ SCH ×4 (07:39→21:10)
[2018-05-08] MEDS: PIPERACILLIN-TAZOBACTAM 3.375 GM in DEXTROSE/WATER 1 50ML.BAG IVPB SCH ×2 (08:16→16:30)
[2018-05-08] MEDS: FLUoxetine HCL 20 MG CAP PO SCH (08:17)
[2018-05-08] MEDS: MAGNESIUM OXIDE 400 MG TAB PO SCH (08:17)
[2018-05-08] MEDS: FAMOTIDINE 20 MG TAB PO SCH ×2 (08:17→21:10)
[2018-05-08] MEDS: PREGABALIN 75 MG CAP PO SCH ×3 (08:17→21:10)
[2018-05-08] MEDS: DIPYRIDAMOLE-ASPIRIN 200-25 MG 1 EACH CPMP.12HR PO SCH ×2 (08:18→21:11)
[2018-05-08] MEDS: SPIRONOLACTONE 25 MG TAB PO SCH (08:18)
[2018-05-08] MEDS: FUROSEMIDE 40 MG TAB PO SCH (08:18)
[2018-05-08] MEDS: HEPARIN SODIUM,PORCINE 5,000 UNIT/ML 1 ML VIAL SQ SCH ×2 (08:18→21:10)
[2018-05-08 08:22] LABS: Basophils % (A) 0 %; Eosinophils % (A) 1 %; HCT 42.8 % (34.0-46.0); HGB 14.2 gm/dL (11.4-16.0); Lymphocytes # (A) 0.3 k/uL (1.0-4.8); Lymphocytes % (A) 3 %; MCH 31.3 pg (25.0-35.0); MCHC 33.2 g/dL (31.0-37.0); MCV 94.4 fL (80.0-100.0); Mean Platelet Volume 8.2; Monocytes # (A) 0.5 k/uL (0-1.0); Monocytes % (A) 5 %; Neutrophils # (A) 8.3 k/uL (1.3-7.7); Neutrophils % (A) 91 %; Platelet Count 120 k/uL (150-450); RBC 4.54 m/uL (3.80-5.40); RDW 13.5 % (11.5-15.5); WBC 9.1 k/uL (3.8-10.6)
[2018-05-08 08:31] LABS: Albumin 3.9 g/dL (3.5-5.0); Bilirubin, Delta 0.2 mg/dL (0.0-0.2); Bilirubin,Unconjugated 0.2 mg/dL (0.0-1.1); Calcium 8.8 mg/dL (8.4-10.2); Total Bilirubin 0.4 mg/dL (0.2-1.3); Total Protein 6.3 g/dL (6.3-8.2)
[2018-05-08] MEDS: BUDESONIDE 1 MG/2 ML NEBU INHALATION SCH ×2 (08:33→18:43)
[2018-05-08] MEDS: IPRATROPIUM-ALBUTEROL 3 ML NEB INHALATION SCH ×4 (08:33→18:43)
[2018-05-08] MEDS: FORMOTEROL FUMARATE 20 MCG/2 ML NEBU INHALATION SCH ×2 (08:33→18:43)
--- NOTE | 2018-05-08 09:10 | P.PN ---
Subjective This is a pleasant 72 years old female with past medical history of coronary artery disease, heart failure, COPD, CVA/TIA, fibromyalgia, GERD, hyperlipidemia , hypertension, osteoarthritis, hypothyroidism, hallway today to see her reverse logistics analyst at the office and he sent her to the hospital as direct admission. No records in the paper chart. Patient was complaining of from progressive increasing dyspnea over the last 2 days associated with worsening cough and phlegm with grayish color associated with some chest tightness, no chest pain. No change in urine or bowel habits, no diarrhea. No fever. Patient has long history of COPD and chronic cough, she is oxygen dependent 2-3 L/m by nasal cannula, but she doesn't know if she uses prednisone at home On admission patient was short of breath she can finish her sentences because of her breathing difficulty 05/07/2018 Patient still dyspneic, and needs breathing treatments. Vitals look stable. She maintains good saturation on 2 L/m oxygen via NC, labs are reviewed showing WBC 7.3, sodium 139 creatinine 0.9S of the labs were unremarkable. Chest x-ray shows bilateral infiltrates and pleural effusion which correlates with mild CHF. Echo is ordered and pending. Also we going to check her troponin, we'll check EKG and she might benefit from shingle carrier evaluation. Resume her home medication. Patient was noticed to be an Aggrenox [dipyridamole/aspirin] . patient states she has previous heart disease and and sometimes it was recommended open heart surgery for her but she wasn't sure for what reason, she denies history of cardiac cath 05/08/2018 Patient still dyspneic, and needs breathing treatments. Vitals look stable. Afebrile. She maintains good saturation on 2 L/m oxygen via NC, labs are reviewed showing. Increase in the WBC from 4.2 to 9.1 with neutrophils 91%. Creatinine 1.03. Blood Cultures are negative. Patient had 2 episodes of chest pain last night, H1 about 20 minutes and relieved by per, it was in the central chest radiating to the right shoulder, nonspecific in character. This morning patient is chest pain-free Blood pressure on the low side after restarting blood pressure medication. She is currently Off fluid due to her CHF possibility. Echo is pending and shingle carrier following the patient Review of systems CONSTITUTIONAL: No fever, no malaise, no fatigue. HEENT: No recent visual problems or hearing problems. Denied any sore throat. CARDIOVASCULAR: No orthopnea, PND, no palpitations, no syncope. PULMONARY: No shortness of breath, no cough, no hemoptysis. GASTROINTESTINAL: No diarrhea, no nausea, no vomiting, no abdominal pain. Normoactive bowel sounds. NEUROLOGICAL: No headaches, no weakness, no numbness. HEMATOLOGICAL: Denies any bleeding or petechiae. GENITOURINARY: Denies any burning micturition, frequency, or urgency. MUSCULOSKELETAL/RHEUMATOLOGICAL: Denies any joint pain, swelling, or any muscle pain. ENDOCRINE: Denies any polyuria or polydipsia. Objective - Vital Signs Vital signs: Vital Signs Temp 97.6 F 05/08/18 06:14 Pulse 80 05/08/18 08:33 Resp 18 05/08/18 06:14 BP 93/58 05/08/18 06:14 Pulse Ox 95 05/08/18 06:14 Intake & Output 05/07/18 05/08/18 05/08/18 18:59 06:59 18:59 Intake Total 1540 Balance 1540 Weight 81.1 kg Intake: Intake, IV Titration 500 Amount Levofloxacin 750Mg-D5w 150 Pmx 750 mg In Dextrose/ Water 1 150ml.bag @ 100 mls/hr IVPB Q24H [facility] Rx#: [id number] Piperacillin-Tazobactam 3 50 .375 gm In Dextrose/Water 1 50ml.bag @ 12.5 mls/hr IVPB Q8HR [facility] Rx#: [id number] Sodium Chloride 0.9% 1, 300 000 ml @ 50 mls/hr IV . Q20H [facility] Rx#:[id number] Oral 1040 Other: Voiding Method Toilet Toilet Bedside Commode # Voids 2 1 - Exam -GENERAL: The patient is alert and oriented x3, patient is dyspneic and she cannot finish her sentences, she is in moderate respiratory distress. Well developed, well nourished. HEENT: Pupils are round and equally reacting to light. EOMI. No scleral icterus. No conjunctival pallor. Normocephalic, atraumatic. No pharyngeal erythema. No thyromegaly. CARDIOVASCULAR: S1 and S2 present. No murmurs, rubs, or gallops. -PULMONARY: Chest is clear to auscultation, no crackles. Patient has bilateral wheezing with prolonged expiratory phase and decrease air entry both sides, air movement is better than yesterday ABDOMEN: Soft, nontender, nondistended, normoactive bowel sounds. No palpable organomegaly. MUSCULOSKELETAL: No joint swelling or deformity. EXTREMITIES: No cyanosis, clubbing, or pedal edema. NEUROLOGICAL: Gross neurological examination did not reveal any focal deficits. SKIN: No rashes. - Labs CBC & Chem 7: 05/08/18 07:58 05/08/18 07:58 Labs: Abnormal Lab Results - Last 24 Hours (Table) 05/07/18 05/08/18 05/08/18 Range/Units 20:37 06:54 07:58 Plt Count 120 L (150-450) k/uL Neutrophils # 8.3 H (1.3-7.7) k/uL Lymphocytes # 0.3 L (1.0-4.8) k/uL Chloride (98-107) mmol/L BUN (7-17) mg/dL Glucose (74-99) mg/dL POC Glucose (mg/dL) 176 H 211 H (75-99) mg/dL 05/08/18 Range/Units 07:58 Plt Count (150-450) k/uL Neutrophils # (1.3-7.7) k/uL Lymphocytes # (1.0-4.8) k/uL Chloride 95 L (98-107) mmol/L BUN 29 H (7-17) mg/dL Glucose 167 H (74-99) mg/dL POC Glucose (mg/dL) (75-99) mg/dL Microbiology - Last 24 Hours (Table) 05/06/18 11:30 Blood Culture - Preliminary Blood No Growth after 24 hours 05/06/18 11:40 Blood Culture - Preliminary Blood No Growth after 24 hours Assessment and Plan Assessment: -Chronic obstructive lung disease, an acute exacerbation -History of CHF, pulmonary congestion on chest x-ray -2 episodes of chest pain, of unclear etiology -History of CVA/TIA -History of fibromyalgia -GERD -Hyperlipidemia -Hypertension -Osteoarthritis -Hypothyroidism -Chronic pain syndrome Plan: Patient will continue with the same breathing treatment, oxygen, and steroids. hold IV hydration and in view of possible chf. Pulmonary team consult is appreciated. Patient was already started on antibiotic Zosyn and Levaquin as per pulmonary team will continue with it. DVT and GI prophylaxis. Follow-up culture results. Patient chest x-ray shows possible CHF. echo: Pending and call cardiology consult is appreciated. Patient is on Aggrenox. Patient was restarted on Lasix and Aldactone and Lipitor. Patient has 2 episodes of chest pain yesterday which is an you for her, discussed with the cardiology team. Further recommendation depends on patient's clinical course Physical therapy evaluation: Pending Prognosis is guarded given severity of her illness
[2018-05-08 11:15] LABS: Glucose,Whole Blood 149 mg/dL (75-99)
[2018-05-08] MEDS: LEVOFLOXACIN 750 MG TAB PO SCH (11:35)
[2018-05-08] MEDS ORDERED: FUROSEMIDE 10 MG/ML 4 ML VIAL IV STA (12:27)
[2018-05-08] MEDS ORDERED: NITROGLYCERIN SL TABS 0.4 MG TAB SUBLINGUAL PRN (13:43)
--- NOTE | 2018-05-08 13:44 | P.PN ---
Subjective Mrs. Scanlon is a pleasant 72-year-old female past medical history significant for aortic stenosis, mitral stenosis and regurgitation, hypertension , dyslipidemia, COPD in a former smoker and history of CVA. She follows with Dr. Vasquez in the office. She presented to the hospital yesterday from Dr. Faustin's office with symptoms of shortness of breath and fatigue. She states this all started Friday. She felt tired all day and barely got up out of bed. She was coughing, short of breath, congested and generally didn't feel well. When she was seen in the pulmonary office yesterday they performed a chest xray which showed pulmonary congestion with suspicion of left lower lobe infiltrate. Repeat xray here shows b/l infiltrate and pleural effusion and CHF. She is seen and examined sitting up in bed in mild respiratory distress. She continues to c/ o shortness of breath. She denies chest pain, dizziness, nausea, vomiting, palpitations, diaphoresis, PND or orhopnea. EKG reveals sinus mechanism with no acute ST or T-wave abnormalities. Laboratory data reviewed, hemoglobin 13.4, platelets 116, sodium 139, potassium 4.5, creatinine 0.86, cardiac enzymes negative 1, proBNP 1400. Current cardiac medications include simvastatin 20 mg daily, Lasix 40 mg daily and Aldactone 25 mg daily. Most recent echocardiogram performed December 2016 reveals preserved left ventricular systolic function with ejection fraction of 50-55 %, mildly dilated left atrium, moderate mitral stenosis with an mean gradient 4.89 with severe mitral regurgitation and mild aortic stenosis with mean gradient of 8.6 mmHg. 05/08/2018 Mrs. Scanlon is seen and examined sitting up in bed. She states she is feeling a little bit better today, but still not great. She complains of two separate occasions of chest discomfort last evening. Both in the mid-sternal region described as tightening. There was radiation to the right shoulder. The episode was brief and subsided on its own. She denies associated dizziness, nausea, vomiting, diaphoresis, palpitations or increased shortness of breath. Telemetry tracings have been unremarkable. One dose of IV lasix was given yesterday and she seems to be breathing easier today. Blood pressure 93/58 heart rate 87 afebrile and maintaining oxygen saturation on nasal cannula. Sodium 137, potassium 4.0, creatinine 1.03, cardiac enzymes negative x4. Objective - Vital Signs Vital signs: Vital Signs Temp 97.6 F 05/08/18 06:14 Pulse 80 05/08/18 12:36 Resp 18 05/08/18 06:14 BP 93/58 05/08/18 06:14 Pulse Ox 95 05/08/18 06:14 Intake & Output 05/07/18 05/08/18 05/08/18 18:59 06:59 18:59 Intake Total 1540 Balance 1540 Weight 81.1 kg Intake: Intake, IV Titration 500 Amount Levofloxacin 750Mg-D5w 150 Pmx 750 mg In Dextrose/ Water 1 150ml.bag @ 100 mls/hr IVPB Q24H [facility] Rx#: [id number] Piperacillin-Tazobactam 3 50 .375 gm In Dextrose/Water 1 50ml.bag @ 12.5 mls/hr IVPB Q8HR [facility] Rx#: [id number] Sodium Chloride 0.9% 1, 300 000 ml @ 50 mls/hr IV . Q20H [facility] Rx#:[id number] Oral 1040 Other: Voiding Method Toilet Toilet Bedside Commode # Voids 2 1 - Exam GENERAL: Well-appearing, well-nourished and in no acute distress. NECK: Supple without JVD or thyromegaly. LUNGS: Coarse rhonchi noted throughout, bibasilar rales, no wheezes noted. Respiration equal and unlabored. HEART: Regular rate and rhythm with systolic ejection murmur at the left sternal border, no rubs or gallops. S1 and S2 heard. EXTREMITIES: Normal range of motion, no edema. No clubbing or cyanosis. Peripheral pulses intact and strong. - Labs CBC & Chem 7: 05/08/18 07:58 05/08/18 07:58 Labs: Abnormal Lab Results - Last 24 Hours (Table) 05/07/18 05/08/18 05/08/18 Range/Units 20:37 06:54 07:58 Plt Count 120 L (150-450) k/uL Neutrophils # 8.3 H (1.3-7.7) k/uL Lymphocytes # 0.3 L (1.0-4.8) k/uL Chloride (98-107) mmol/L BUN (7-17) mg/dL Glucose (74-99) mg/dL POC Glucose (mg/dL) 176 H 211 H (75-99) mg/dL 05/08/18 05/08/18 Range/Units 07:58 11:12 Plt Count (150-450) k/uL Neutrophils # (1.3-7.7) k/uL Lymphocytes # (1.0-4.8) k/uL Chloride 95 L (98-107) mmol/L BUN 29 H (7-17) mg/dL Glucose 167 H (74-99) mg/dL POC Glucose (mg/dL) 149 H (75-99) mg/dL Microbiology - Last 24 Hours (Table) 05/06/18 11:30 Blood Culture - Preliminary Blood No Growth after 24 hours 05/06/18 11:40 Blood Culture - Preliminary Blood No Growth after 24 hours Assessment and Plan Assessment: ASSESSMENT 1. Shortness of breath with evidence of bilateral lobe infiltrates and exacerbation of chronic COPD 2. Mild exacerbation of diastolic heart failure, minimal elevation of proBNP. 3. Moderate mitral regurgitation 4. Mild aortic stenosis 5. Mild-moderate tricuspid regurgitation 6. Hypertension 7. Dyslipidemia PLAN Repeat EKG if complaints of chest pain. Add PRN order of SL nitroglycerin to be given for chest pain. Ongoing medical management of COPD and pneumonia. Further recommendations to follow based on clinical course. Nurse Practitioner note has been reviewed, I agree with a documented findings and plan of care. Patient was seen and examined.
--- NOTE | 2018-05-08 14:00 | ECHOF ---
Referral Reason:Rule out heart disease MEASUREMENTS -------- HEIGHT: 162.6 cm WEIGHT: 80.7 kg BP: 105/63 IVSd: 1.2 cm (0.6 - 1.1) LVIDd: 3.9 cm (3.9 - 5.3) LVPWd: 1.3 cm (0.6 - 1.1) IVSs: 1.5 cm LVIDs: 1.6 cm LVPWs: 1.5 cm LAESV Index (A-L): 30.22 ml/m Ao Diam: 3.1 cm (2.0 - 3.7) AV Cusp: 1.5 cm (1.5 - 2.6) LA Diam: 2.8 cm (2.7 - 3.8) MV EXCURSION: 10.065 mm (> 18.000) MV EF SLOPE: 39 mm/s (70 - 150) EPSS: 0.6 cm MV E Obey: 2.05 m/s MV DecT: 394 ms MV A Obey: 2.17 m/s MV E/A Ratio: 0.94 AV maxP.92 mmHg AV meanP.43 mmHg RAP: 5.00 mmHg RVSP: 17.01 mmHg FINDINGS -------- Sinus rhythm. This was a technically good study. The left ventricular size is normal. There is mild concentric left ventricular hypertrophy. Overa ll left ventricular systolic function is normal with, an EF between 55 - 60 %. The right ventricle is normal in size and function. LA is midly dilated 29-33ml/m2. The right atrium is normal in size. Aortic valve is trileaflet and is mildly thickened. There is mild aortic stenosis present. Peak/m mayur gradient across the Aortic Valve is 19.92mmHg / 10.43mmHg. The mitral valve leaflets are mildly thickened. Mild mitral regurgitation is present. The peak a nd mean MV gradients are 19.39mmHg 8.09mmHg as measured by doppler. Knnn-zw-nssmvmfa mitral stenosi s. Mild tricuspid regurgitation present. The right ventricular systolic pressure, as measured by Doppl er, is 17.01mmHg. Pulmonic valve appears structurally normal. The aortic root size is normal. Normal inferior vena cava with normal inspiratory collapse consistent with estimated right atrial pre ssure of 5 mmHg. The pericardium is normal. CONCLUSIONS -------- 1. Sinus rhythm. 2. This was a technically good study. 3. The left ventricular size is normal. 4. There is mild concentric left ventricular hypertrophy. 5. Overall left ventricular systolic function is normal with, an EF between 55 - 60 %. 6. The right ventricle is normal in size and function. 7. LA is midly dilated 29-33ml/m2. 8. The right atrium is normal in size. 9. Aortic valve is trileaflet and is mildly thickened. 10. There is mild aortic stenosis present. 11. Peak/mean gradient across the Aortic Valve is 19.92mmHg / 10.43mmHg. 12. The mitral valve leaflets are mildly thickened. 13. Mild mitral regurgitation is present. 14. The peak and mean MV gradients are 19.39mmHg 8.09mmHg as measured by doppler. 15. Wigh-[id number]-ezcgkpkv mitral stenosis. 16. Mild tricuspid regurgitation present. 17. The right ventricular systolic pressure, as measured by Doppler, is 17.01mmHg. 18. Pulmonic valve appears structurally normal. 19. The aortic root size is normal. 20. Normal inferior vena cava with normal inspiratory collapse consistent with estimated right atrial pressure of 5 mmHg. 21. The pericardium is normal. TRAVERTINE INSTALLER: Jayla Moreau RDCS
--- NOTE | 2018-05-08 15:04 | P.PN ---
Subjective Progress Note Date: 05/08/18 Principal diagnosis: Acute on chronic hypoxic respiratory failure secondary to mild exacerbation of diastolic congestive heart failure. 72-year-old female patient with known history of COPD has been maintained on DuoNeb neb last treatment [id number] along with oxygen at 2 L/m nasal cannula, was seen in our office yesterday because of increased shortness of breath, increased dyspnea, chest tightness and wheezing. She had a congested cough. She was unable to bring up much sputum. No pleurisy or hemoptysis. She was seen in the office and the patient had a chest x-ray that showed evidence of pulmonary vessel congestion and suspected left lower lobe pulmonary infiltration/pneumonia. No evidence of any pneumothorax. Patient is afebrile. The patient's hemodynamically stable. The patient was hospitalized in the past for a similar complaint and her last hospitalization was in December 2017 and back then the patient a CAT scan of the chest that showed some limited groundglass/. Tree and bud pulmonate infiltrates for which the patient underwent a bronchoscopy and the bronchioloalveolar lavage showed no evidence of any microbial growth. This was done by Dr. Faustin. The patient since then was doing fine utilizing her DuoNeb nebulized treatments. She is not using any form of maintenance respiratory medications. The patient also is known to have multiple medical problems and comorbidities. 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 She also has chronic degenerative arthritis and she has undergone a right shoulder and the right knee replacement and previous history of cervical spine fusion. She has chronic back pain and restless leg syndrome. No significant leukocytosis. The rest of the blood work essentially within normal limits. Cardiac enzymes have been negative. The patient is seen again today 05/08/2018 in follow-up on the regular medical floor. She is currently sitting up in a chair at the bedside. She is awake and alert in no acute distress. She is maintaining good O2 saturations in the 90s on 3 L/m per nasal cannula. Blood cultures reveal no growth. White count 9.1. Hemoglobin 14.2. Creatinine 1.03. She remains on bronchodilators, IV Solu-Medrol, empiric antibiotics. She is on oral diuretics. Cardiology is following. Objective - Vital Signs Vital signs: Vital Signs Temp 97.6 F 05/08/18 06:14 Pulse 80 05/08/18 12:36 Resp 18 05/08/18 08:15 BP 93/58 05/08/18 06:14 Pulse Ox 95 05/08/18 06:14 Intake & Output 05/07/18 05/08/18 05/08/18 18:59 06:59 18:59 Intake Total 1540 Balance 1540 Weight 81.1 kg Intake: Intake, IV Titration 500 Amount Levofloxacin 750Mg-D5w 150 Pmx 750 mg In Dextrose/ Water 1 150ml.bag @ 100 mls/hr IVPB Q24H [facility] Rx#: [id number] Piperacillin-Tazobactam 3 50 .375 gm In Dextrose/Water 1 50ml.bag @ 12.5 mls/hr IVPB Q8HR [facility] Rx#: [id number] Sodium Chloride 0.9% 1, 300 000 ml @ 50 mls/hr IV . Q20H [facility] Rx#:[id number] Oral 1040 Other: Voiding Method Toilet Toilet Toilet Bedside Commode Bedside Commode # Voids 2 1 - Exam Gen. appearance the patient is calm comfortable and mild degree of respiratory distress, a bit anxious Head exam was generally normal. There was no scleral icterus or corneal arcus. Mucous membranes were moist. Neck was supple and without jugular venous distension, thyromegaly, or carotid bruits. Carotids were easily palpable bilaterally. There was no adenopathy. Lungs sounds are diminished bilaterally along with marked diminished breath sounds and diffuse expiratory wheezes heard throughout the lung chan bilaterally. Exhalation phases especially prolonged Cardiac exam revealed the PMI to be normally situated and sized. The rhythm was regular and no extrasystoles were noted during several minutes of auscultation. The first and second heart sounds were normal and physiologic splitting of the second heart sound was noted. There were no murmurs, rubs, clicks, or gallops. Abdominal exam revealed normal bowel sounds. The abdomen was soft, non-tender, and without masses, organomegaly, or appreciable enlargement of the abdominal aorta. Examination of the extremities revealed easily palpable radial, femoral and pedal pulses. There was no cyanosis, clubbing or edema. Muscular skeletal exam shows normal strength and tone. The patient has had a right shoulder replacement scars in place and the patient has also had a right knee replacement the scar is in place. No scoliosis. No deformities. Examination of the skin revealed no evidence of significant rashes, suspicious appearing nevi or other concerning lesions. Neurologically the patient has some right facial weakness otherwise motor function is equal and symmetrical in all 4 extremities and the patient is awake and alert 3. Psychiatric the patient has normal mood and affect and judgment and insight. - Labs CBC & Chem 7: 05/08/18 07:58 05/08/18 07:58 Labs: Abnormal Lab Results - Last 24 Hours (Table) 05/07/18 05/08/18 05/08/18 Range/Units 20:37 06:54 07:58 Plt Count 120 L (150-450) k/uL Neutrophils # 8.3 H (1.3-7.7) k/uL Lymphocytes # 0.3 L (1.0-4.8) k/uL Chloride (98-107) mmol/L BUN (7-17) mg/dL Glucose (74-99) mg/dL POC Glucose (mg/dL) 176 H 211 H (75-99) mg/dL 05/08/18 05/08/18 Range/Units 07:58 11:12 Plt Count (150-450) k/uL Neutrophils # (1.3-7.7) k/uL Lymphocytes # (1.0-4.8) k/uL Chloride 95 L (98-107) mmol/L BUN 29 H (7-17) mg/dL Glucose 167 H (74-99) mg/dL POC Glucose (mg/dL) 149 H (75-99) mg/dL Microbiology - Last 24 Hours (Table) 05/06/18 11:30 Blood Culture - Preliminary Blood No Growth after 48 hours 05/06/18 11:40 Blood Culture - Preliminary Blood No Growth after 48 hours Assessment and Plan Assessment: Assessment 1 acute on chronic hypoxic respiratory failure secondary to an acute exacerbation of chronic obstructive pulmonary disease. 2 acute exacerbation of chronic diastolic congestive heart failure secondary to valvular heart disease with moderate mitral stenosis and severe mitral regurgitation. 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 Grant. She is breathing quite a bit easier today as compared to yesterday. Continue the current treatment plan including IV Solu-Medrol, bronchodilators, antibiotics. Doubt any significant pneumonia. Continue diuretics. We will increase her activity as tolerated. We 'll continue to follow make further recommendations based on her clinical status. I, the cosigning physician, performed a history & physical examination of the patient. Lungs sounds faint crackles in the posterior bases. Maintaining good O2 saturations in the 90s on 3 L/m per nasal cannula. I discussed the assessment and plan of care with my nurse practitioner, Mary Cobos. I attest to the above note as dictated by her.
[2018-05-08 17:25] LABS: Glucose,Whole Blood 195 mg/dL (75-99)
[2018-05-08 20:33] LABS: Glucose,Whole Blood 160 mg/dL (75-99)
[2018-05-08] MEDS: ATORVASTATIN 10 MG TAB PO SCH (21:11)
[2018-05-09] MEDS: methylPREDNISolone SOD SUCCI 125 MG/2 ML VIAL IV SCH ×3 (00:33→11:36)
[2018-05-09] MEDS: PIPERACILLIN-TAZOBACTAM 3.375 GM in DEXTROSE/WATER 1 50ML.BAG IVPB SCH ×2 (00:33→08:17)
[2018-05-09] MEDS: TEMAZEPAM 15 MG CAP PO PRN (00:41)
[2018-05-09] MEDS: LEVOTHYROXINE 112 MCG TAB PO SCH (05:45)
[2018-05-09 07:25] LABS: Glucose,Whole Blood 182 mg/dL (75-99)
[2018-05-09] MEDS: IPRATROPIUM-ALBUTEROL 3 ML NEB INHALATION SCH ×4 (07:30→19:54)
[2018-05-09] MEDS: FORMOTEROL FUMARATE 20 MCG/2 ML NEBU INHALATION SCH ×2 (07:30→19:54)
[2018-05-09] MEDS: BUDESONIDE 1 MG/2 ML NEBU INHALATION SCH ×2 (07:31→19:54)
--- NOTE | 2018-05-09 07:43 | XR ---
EXAMINATION TYPE: XR chest 1V DATE OF EXAM: 05/09/2018 COMPARISON: 05/06/2018 HISTORY: 72-year-old female CHF, history of pneumonia TECHNIQUE: Single frontal view of the chest is obtained. FINDINGS: Reverse right total shoulder arthroplasty. Partially visualized. Heart upper limits of normal in size. Hyperinflation. Mild diffuse interstitial prominence. Patchy le ft lower lung density is relatively unchanged. Mild blunting of the left costophrenic angle, comparis on exam which included a lateral view showed no pleural effusion. IMPRESSION: 1. COPD an borderline heart size. 2. Continued patchy left basilar atelectasis and/or infiltrate.
[2018-05-09 07:44] LABS: Albumin 3.7 g/dL (3.5-5.0); Bilirubin, Delta 0.3 mg/dL (0.0-0.2); Bilirubin,Unconjugated 0.2 mg/dL (0.0-1.1); Calcium 8.6 mg/dL (8.4-10.2); Potassium 3.8 mmol/L (3.5-5.1); Total Bilirubin 0.5 mg/dL (0.2-1.3); Total Protein 6.1 g/dL (6.3-8.2)
[2018-05-09 08:18] LABS: Basophils % (A) 0 %; Eosinophils % (A) 0 %; HCT 44.1 % (34.0-46.0); HGB 14.4 gm/dL (11.4-16.0); Lymphocytes # (A) 0.3 k/uL (1.0-4.8); Lymphocytes % (A) 4 %; MCH 30.5 pg (25.0-35.0); MCHC 32.7 g/dL (31.0-37.0); MCV 93.5 fL (80.0-100.0); Mean Platelet Volume 8.8; Monocytes # (A) 0.3 k/uL (0-1.0); Monocytes % (A) 5 %; Neutrophils # (A) 6.7 k/uL (1.3-7.7); Neutrophils % (A) 91 %; Platelet Count 126 k/uL (150-450); RBC 4.72 m/uL (3.80-5.40); RDW 13.4 % (11.5-15.5); WBC 7.4 k/uL (3.8-10.6)
[2018-05-09] MEDS: SPIRONOLACTONE 25 MG TAB PO SCH (08:18)
[2018-05-09] MEDS: HEPARIN SODIUM,PORCINE 5,000 UNIT/ML 1 ML VIAL SQ SCH ×2 (08:18→21:48)
[2018-05-09] MEDS: DIPYRIDAMOLE-ASPIRIN 200-25 MG 1 EACH CPMP.12HR PO SCH ×2 (08:18→21:48)
[2018-05-09] MEDS: FAMOTIDINE 20 MG TAB PO SCH ×2 (08:18→21:47)
[2018-05-09] MEDS: PREGABALIN 75 MG CAP PO SCH ×3 (08:19→21:47)
[2018-05-09] MEDS: FLUoxetine HCL 20 MG CAP PO SCH (08:19)
[2018-05-09] MEDS: MAGNESIUM OXIDE 400 MG TAB PO SCH (08:19)
[2018-05-09] MEDS: FUROSEMIDE 40 MG TAB PO SCH ×2 (08:19→12:42)
[2018-05-09] MEDS: HYDROcodone/APAP 10-325MG 1 EACH TAB PO PRN ×3 (08:20→21:47)
[2018-05-09] MEDS: INSULIN ASPART 100 UNIT/ML 1 ML 10 ML VIAL SQ SCH ×4 (08:29→21:48)
[2018-05-09] MEDS ORDERED: diphenhydrAMINE 50 MG/ML 1 ML VIAL IVP STA (11:19)
--- NOTE | 2018-05-09 11:22 | P.PN ---
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 No records in the paper chart. Patient was complaining of from progressive increasing dyspnea over the last 2 days associated with worsening cough and phlegm with grayish color associated with some chest tightness, no chest pain. No change in urine or bowel habits, no diarrhea. No fever. Patient has long history of COPD and chronic cough, she is oxygen dependent 2-3 L/m by nasal cannula, but she doesn't know if she uses prednisone at home On admission patient was short of breath she can finish her sentences because of her breathing difficulty 05/07/2018 Patient still dyspneic, and needs breathing treatments. Vitals look stable. She maintains good saturation on 2 L/m oxygen via NC, labs are reviewed showing WBC 7.3, sodium 139 creatinine 0.9S of the labs were unremarkable. Chest x-ray shows bilateral infiltrates and pleural effusion which correlates with mild CHF. Echo is ordered and pending. Also we going to check her troponin, we'll check EKG and she might benefit from [employer] evaluation. Resume her home medication. Patient was noticed to be an Aggrenox [dipyridamole/aspirin] . patient states she has previous heart disease and and sometimes it was recommended open heart surgery for her but she wasn't sure for what reason, she denies history of cardiac cath 05/08/2018 Patient still dyspneic, and needs breathing treatments. Vitals look stable. Afebrile. She maintains good saturation on 2 L/m oxygen via NC, labs are reviewed showing. Increase in the WBC from 4.2 to 9.1 with neutrophils 91%. Creatinine 1.03. Blood Cultures are negative. Patient had 2 episodes of chest pain last night, H1 about 20 minutes and relieved by per, it was in the central chest radiating to the right shoulder, nonspecific in character. This morning patient is chest pain-free Blood pressure on the low side after restarting blood pressure medication. She is currently Off fluid due to her CHF possibility. Echo: Flexion fraction 55- 60% and mild LVH and [employer] following the patient Patient has some itching which she says it happens to her now on patient, patient was provided. Patient is already on steroids Review of systems CONSTITUTIONAL: No fever, no malaise, no fatigue. HEENT: No recent visual problems or hearing problems. Denied any sore throat. CARDIOVASCULAR: No orthopnea, PND, no palpitations, no syncope. PULMONARY: No shortness of breath, no cough, no hemoptysis. GASTROINTESTINAL: No diarrhea, no nausea, no vomiting, no abdominal pain. Normoactive bowel sounds. NEUROLOGICAL: No headaches, no weakness, no numbness. HEMATOLOGICAL: Denies any bleeding or petechiae. GENITOURINARY: Denies any burning micturition, frequency, or urgency. MUSCULOSKELETAL/RHEUMATOLOGICAL: Denies any joint pain, swelling, or any muscle pain. ENDOCRINE: Denies any polyuria or polydipsia. Objective - Vital Signs Vital signs: Vital Signs Temp 97.5 F L 05/09/18 05:00 Pulse 96 05/09/18 07:50 Resp 17 05/09/18 05:00 BP 102/62 05/09/18 05:00 Pulse Ox 97 05/09/18 05:00 Intake & Output 05/08/18 05/09/18 05/09/18 18:59 06:59 18:59 Intake Total 50 Balance 50 Weight 81 kg Intake: Intake, IV Titration 50 Amount Piperacillin-Tazobactam 3 50 .375 gm In Dextrose/Water 1 50ml.bag @ 12.5 mls/hr IVPB Q8HR [facility] Rx#: [id number] Other: Voiding Method Toilet Toilet Bedside Commode Bedside Commode # Voids 4 3 - Exam -GENERAL: The patient is alert and oriented x3, patient is dyspneic and she cannot finish her sentences, she is in moderate respiratory distress. Well developed, well nourished. HEENT: Pupils are round and equally reacting to light. EOMI. No scleral icterus. No conjunctival pallor. Normocephalic, atraumatic. No pharyngeal erythema. No thyromegaly. CARDIOVASCULAR: S1 and S2 present. No murmurs, rubs, or gallops. -PULMONARY: Chest is clear to auscultation, no crackles. Patient has bilateral wheezing with prolonged expiratory phase and decrease air entry both sides, air movement is better than yesterday ABDOMEN: Soft, nontender, nondistended, normoactive bowel sounds. No palpable organomegaly. MUSCULOSKELETAL: No joint swelling or deformity. EXTREMITIES: No cyanosis, clubbing, or pedal edema. NEUROLOGICAL: Gross neurological examination did not reveal any focal deficits. SKIN: No rashes. - Labs CBC & Chem 7: 05/09/18 07:09 05/09/18 07:09 Labs: Abnormal Lab Results - Last 24 Hours (Table) 05/08/18 05/08/18 05/08/18 Range/Units 11:12 17:23 20:29 Plt Count (150-450) k/uL Lymphocytes # (1.0-4.8) k/uL Chloride (98-107) mmol/L Carbon Dioxide (22-30) mmol/L BUN (7-17) mg/dL Creatinine (0.52-1.04) mg/dL Glucose (74-99) mg/dL POC Glucose (mg/dL) 149 H 195 H 160 H (75-99) mg/dL Delta Bilirubin (0.0-0.2) mg/dL Total Protein (6.3-8.2) g/dL 05/09/18 05/09/18 05/09/18 Range/Units 07:09 07:09 07:23 Plt Count 126 L (150-450) k/uL Lymphocytes # 0.3 L (1.0-4.8) k/uL Chloride 92 L (98-107) mmol/L Carbon Dioxide 36 H (22-30) mmol/L BUN 34 H (7-17) mg/dL Creatinine 1.14 H (0.52-1.04) mg/dL Glucose 197 H (74-99) mg/dL POC Glucose (mg/dL) 182 H (75-99) mg/dL Delta Bilirubin 0.3 H (0.0-0.2) mg/dL Total Protein 6.1 L (6.3-8.2) g/dL Microbiology - Last 24 Hours (Table) 05/06/18 11:30 Blood Culture - Preliminary Blood No Growth after 48 hours 05/06/18 11:40 Blood Culture - Preliminary Blood No Growth after 48 hours Assessment and Plan Assessment: -Chronic obstructive lung disease, an acute exacerbation -Left lower lobe pneumonia -History of CHF, pulmonary congestion on chest x-ray -2 episodes of chest pain, of unclear etiology -History of CVA/TIA -History of fibromyalgia -GERD -Hyperlipidemia -Hypertension -Osteoarthritis -Hypothyroidism -Chronic pain syndrome -Chronic thrombocytopenia Plan: Patient will continue with the same breathing treatment, oxygen, and steroids. hold IV hydration and in view of possible chf. Pulmonary team consult is appreciated. Patient was already started on antibiotic Zosyn and Levaquin as per pulmonary team will continue with it. DVT and GI prophylaxis. Follow-up culture results. Patient chest x-ray shows possible CHF. echo: Pending and call cardiology consult is appreciated. Patient is on Aggrenox. Patient was restarted on Lasix and Aldactone and Lipitor. Patient has 2 episodes of chest pain yesterday which is an you for her, discussed with the cardiology team. Further recommendation depends on patient's clinical course Physical therapy and occupational therapy evaluation: Home with family Prognosis is guarded given severity of her illness
[2018-05-09] MEDS: LEVOFLOXACIN 750 MG TAB PO SCH (11:35)
[2018-05-09 12:00] LABS: Glucose,Whole Blood 207 mg/dL (75-99)
--- NOTE | 2018-05-09 12:02 | P.PN ---
Subjective Progress Note Date: 05/09/18 Principal diagnosis: Acute on chronic hypoxic respiratory failure secondary to mild exacerbation of diastolic congestive heart failure. 72-year-old female patient with known history of COPD has been maintained on DuoNeb neb last treatment [id number] along with oxygen at 2 L/m nasal cannula, was seen in our office yesterday because of increased shortness of breath, increased dyspnea, chest tightness and wheezing. She had a congested cough. She was unable to bring up much sputum. No pleurisy or hemoptysis. She was seen in the office and the patient had a chest x-ray that showed evidence of pulmonary vessel congestion and suspected left lower lobe pulmonary infiltration/pneumonia. No evidence of any pneumothorax. Patient is afebrile. The patient's hemodynamically stable. The patient was hospitalized in the past for a similar complaint and her last hospitalization was in December 2017 and back then the patient a CAT scan of the chest that showed some limited groundglass/. Tree and bud pulmonate infiltrates for which the patient underwent a bronchoscopy and the bronchioloalveolar lavage showed no evidence of any microbial growth. This was done by Dr. Faustin. The patient since then was doing fine utilizing her DuoNeb nebulized treatments. She is not using any form of maintenance respiratory medications. The patient also is known to have multiple medical problems and comorbidities. 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 She also has chronic degenerative arthritis and she has undergone a right shoulder and the right knee replacement and previous history of cervical spine fusion. She has chronic back pain and restless leg syndrome. No significant leukocytosis. The rest of the blood work essentially within normal limits. Cardiac enzymes have been negative. The patient is seen again today 05/08/2018 in follow-up on the regular medical floor. She is currently sitting up in a chair at the bedside. She is awake and alert in no acute distress. She is maintaining good O2 saturations in the 90s on 3 L/m per nasal cannula. Blood cultures reveal no growth. White count 9.1. Hemoglobin 14.2. Creatinine 1.03. She remains on bronchodilators, IV Solu-Medrol, empiric antibiotics. She is on oral diuretics. Cardiology is following. The patient is seen again today 05/09/2018 in follow-up on the regular medical floor. She is currently resting quite comfortably in bed. She remains awake and alert in no acute distress. She is maintaining good O2 saturations in the 90s on 3 L/m per nasal cannula. She's currently afebrile. Hemodynamically stable. Blood cultures reveal no growth to date. White count 7.4. Hemoglobin 14.4. Creatinine 1.14. She remains on bronchodilators, Zosyn and Levaquin, diuretics. Objective - Vital Signs Vital signs: Vital Signs Temp 97.5 F L 05/09/18 05:00 Pulse 92 05/09/18 11:25 Resp 17 05/09/18 05:00 BP 102/62 05/09/18 05:00 Pulse Ox 97 05/09/18 05:00 Intake & Output 05/08/18 05/09/18 05/09/18 18:59 06:59 18:59 Intake Total 50 Balance 50 Weight 81 kg Intake: Intake, IV Titration 50 Amount Piperacillin-Tazobactam 3 50 .375 gm In Dextrose/Water 1 50ml.bag @ 12.5 mls/hr IVPB Q8HR [facility] Rx#: [id number] Other: Voiding Method Toilet Toilet Bedside Commode Bedside Commode # Voids 4 3 - Exam Gen. appearance the patient is calm comfortable and mild degree of respiratory distress, a bit anxious Head exam was generally normal. There was no scleral icterus or corneal arcus. Mucous membranes were moist. Neck was supple and without jugular venous distension, thyromegaly, or carotid bruits. Carotids were easily palpable bilaterally. There was no adenopathy. Lungs sounds are diminished bilaterally along with marked diminished breath sounds and end expiratory wheezes heard throughout the lung chan bilaterally. Exhalation phases especially prolonged Cardiac exam revealed the PMI to be normally situated and sized. The rhythm was regular and no extrasystoles were noted during several minutes of auscultation. The first and second heart sounds were normal and physiologic splitting of the second heart sound was noted. There were no murmurs, rubs, clicks, or gallops. Abdominal exam revealed normal bowel sounds. The abdomen was soft, non-tender, and without masses, organomegaly, or appreciable enlargement of the abdominal aorta. Examination of the extremities revealed easily palpable radial, femoral and pedal pulses. There was no cyanosis, clubbing or edema. Muscular skeletal exam shows normal strength and tone. The patient has had a right shoulder replacement scars in place and the patient has also had a right knee replacement the scar is in place. No scoliosis. No deformities. Examination of the skin revealed no evidence of significant rashes, suspicious appearing nevi or other concerning lesions. Neurologically the patient has some right facial weakness otherwise motor function is equal and symmetrical in all 4 extremities and the patient is awake and alert 3. Psychiatric the patient has normal mood and affect and judgment and insight. - Labs CBC & Chem 7: 05/09/18 07:09 05/09/18 07:09 Labs: Abnormal Lab Results - Last 24 Hours (Table) 05/08/18 05/08/18 05/09/18 Range/Units 17:23 20:29 07:09 Plt Count 126 L (150-450) k/uL Lymphocytes # 0.3 L (1.0-4.8) k/uL Chloride (98-107) mmol/L Carbon Dioxide (22-30) mmol/L BUN (7-17) mg/dL Creatinine (0.52-1.04) mg/dL Glucose (74-99) mg/dL POC Glucose (mg/dL) 195 H 160 H (75-99) mg/dL Delta Bilirubin (0.0-0.2) mg/dL Total Protein (6.3-8.2) g/dL 05/09/18 05/09/18 Range/Units 07:09 07:23 Plt Count (150-450) k/uL Lymphocytes # (1.0-4.8) k/uL Chloride 92 L (98-107) mmol/L Carbon Dioxide 36 H (22-30) mmol/L BUN 34 H (7-17) mg/dL Creatinine 1.14 H (0.52-1.04) mg/dL Glucose 197 H (74-99) mg/dL POC Glucose (mg/dL) 182 H (75-99) mg/dL Delta Bilirubin 0.3 H (0.0-0.2) mg/dL Total Protein 6.1 L (6.3-8.2) g/dL Microbiology - Last 24 Hours (Table) 05/06/18 11:30 Blood Culture - Preliminary Blood No Growth after 48 hours 05/06/18 11:40 Blood Culture - Preliminary Blood No Growth after 48 hours Assessment and Plan Assessment: Assessment 1 acute on chronic hypoxic respiratory failure secondary to an acute exacerbation of chronic obstructive pulmonary disease. 2 acute exacerbation of chronic diastolic congestive heart failure secondary to valvular heart disease with moderate mitral stenosis and severe mitral regurgitation. 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 Grant. We will titrate her steroids. Continue bronchodilators. De-escalate antibiotics. Continue diuretics. We will increase her activity as tolerated. We'll continue to follow make further recommendations based on her clinical status. We will continue to follow. I, the cosigning physician, performed a history & physical examination of the patient. Lungs sounds faint crackles in the posterior bases, end expiratory wheeze. Maintaining good O2 saturations in the 90s on 3 L/m per nasal cannula. I discussed the assessment and plan of care with my nurse practitioner, Mary Cobos. I attest to the above note as dictated by her.
[2018-05-09] MEDS: methylPREDNISolone SOD SUCCI 40 MG/ML 1 ML VIAL IV SCH ×2 (16:21→23:14)
[2018-05-09 17:10] LABS: Glucose,Whole Blood 124 mg/dL (75-99)
[2018-05-09 21:20] LABS: Glucose,Whole Blood 143 mg/dL (75-99)
[2018-05-09] MEDS: ATORVASTATIN 10 MG TAB PO SCH (21:48)
[2018-05-09] MEDS: ALPRAZolam 0.25 MG TAB PO PRN (23:14)
[2018-05-10] MEDS: HYDROcodone/APAP 10-325MG 1 EACH TAB PO PRN ×3 (05:35→20:42)
[2018-05-10] MEDS: LEVOTHYROXINE 112 MCG TAB PO SCH (05:36)
[2018-05-10 07:34] LABS: Glucose,Whole Blood 151 mg/dL (75-99)
[2018-05-10] MEDS: INSULIN ASPART 100 UNIT/ML 1 ML 10 ML VIAL SQ SCH ×4 (07:57→21:40)
[2018-05-10] MEDS: HEPARIN SODIUM,PORCINE 5,000 UNIT/ML 1 ML VIAL SQ SCH ×2 (07:58→21:40)
[2018-05-10] MEDS: DIPYRIDAMOLE-ASPIRIN 200-25 MG 1 EACH CPMP.12HR PO SCH ×2 (07:59→21:40)
[2018-05-10] MEDS: PREGABALIN 75 MG CAP PO SCH ×3 (07:59→21:39)
[2018-05-10] MEDS: FUROSEMIDE 40 MG TAB PO SCH (07:59)
[2018-05-10] MEDS: AMOXIC-POT CLAV 875-125MG 1 EACH TAB PO SCH (07:59)
[2018-05-10] MEDS: SPIRONOLACTONE 25 MG TAB PO SCH (07:59)
[2018-05-10] MEDS: methylPREDNISolone SOD SUCCI 40 MG/ML 1 ML VIAL IV SCH ×3 (07:59→23:17)
[2018-05-10] MEDS: FAMOTIDINE 20 MG TAB PO SCH ×2 (07:59→21:40)
[2018-05-10] MEDS: MAGNESIUM OXIDE 400 MG TAB PO SCH (07:59)
[2018-05-10] MEDS: FLUoxetine HCL 20 MG CAP PO SCH (07:59)
[2018-05-10] MEDS: IPRATROPIUM-ALBUTEROL 3 ML NEB INHALATION SCH ×4 (08:20→19:44)
[2018-05-10] MEDS: FORMOTEROL FUMARATE 20 MCG/2 ML NEBU INHALATION SCH ×2 (08:20→19:44)
[2018-05-10] MEDS: BUDESONIDE 1 MG/2 ML NEBU INHALATION SCH ×2 (08:20→19:44)
[2018-05-10 09:14] LABS: Calcium 8.4 mg/dL (8.4-10.2); Potassium 3.5 mmol/L (3.5-5.1)
--- NOTE | 2018-05-10 11:31 | P.PN ---
Subjective This is a pleasant 72 years old female with past medical history of coronary artery disease, heart failure, COPD, CVA/TIA, fibromyalgia, GERD, hyperlipidemia , hypertension, osteoarthritis, hypothyroidism, hallway today to see her computing tutor at the office and he sent her to the hospital as direct admission. No records in the paper chart. Patient was complaining of from progressive increasing dyspnea over the last 2 days associated with worsening cough and phlegm with grayish color associated with some chest tightness, no chest pain. No change in urine or bowel habits, no diarrhea. No fever. Patient has long history of COPD and chronic cough, she is oxygen dependent 2-3 L/m by nasal cannula, but she doesn't know if she uses prednisone at home On admission patient was short of breath she can finish her sentences because of her breathing difficulty 05/07/2018 Patient still dyspneic, and needs breathing treatments. Vitals look stable. She maintains good saturation on 2 L/m oxygen via NC, labs are reviewed showing WBC 7.3, sodium 139 creatinine 0.9S of the labs were unremarkable. Chest x-ray shows bilateral infiltrates and pleural effusion which correlates with mild CHF. Echo is ordered and pending. Also we going to check her troponin, we'll check EKG and she might benefit from carton forming machine helper evaluation. Resume her home medication. Patient was noticed to be an Aggrenox [dipyridamole/aspirin] . patient states she has previous heart disease and and sometimes it was recommended open heart surgery for her but she wasn't sure for what reason, she denies history of cardiac cath 05/08/2018 Patient still dyspneic, and needs breathing treatments. Vitals look stable. Afebrile. She maintains good saturation on 2 L/m oxygen via NC, labs are reviewed showing. Increase in the WBC from 4.2 to 9.1 with neutrophils 91%. Creatinine 1.03. Blood Cultures are negative. Patient had 2 episodes of chest pain last night, H1 about 20 minutes and relieved by per, it was in the central chest radiating to the right shoulder, nonspecific in character. This morning patient is chest pain-free Blood pressure on the low side after restarting blood pressure medication. She is currently Off fluid due to her CHF possibility. Echo: Flexion fraction 55- 60% and mild LVH and carton forming machine helper following the patient 05/10/2018 Patient is still dyspneic breathing treatment. Vitas looks stable blood pressure on the low side. Patient is afebrile. Continue with oxygen therapy. She doesn't have chest anymore today. However she feels pressure on her chest she states like an elephant sitting on my chest. Sodium 138 potassium 3.5 creatinine 1.0 glucose 172. Patient continue on Solu-Medrol 40 mg IV every 8 hours area at Augmentin is been added today. Hold Lasix Review of systems CONSTITUTIONAL: No fever, no malaise, no fatigue. HEENT: No recent visual problems or hearing problems. Denied any sore throat. CARDIOVASCULAR: No orthopnea, PND, no palpitations, no syncope. PULMONARY: No shortness of breath, no cough, no hemoptysis. GASTROINTESTINAL: No diarrhea, no nausea, no vomiting, no abdominal pain. Normoactive bowel sounds. NEUROLOGICAL: No headaches, no weakness, no numbness. HEMATOLOGICAL: Denies any bleeding or petechiae. GENITOURINARY: Denies any burning micturition, frequency, or urgency. MUSCULOSKELETAL/RHEUMATOLOGICAL: Denies any joint pain, swelling, or any muscle pain. ENDOCRINE: Denies any polyuria or polydipsia. Objective - Vital Signs Vital signs: Vital Signs Temp 97.4 F L 05/10/18 05:35 Pulse 98 05/10/18 08:45 Resp 17 05/10/18 05:35 BP 105/65 05/10/18 05:35 Pulse Ox 98 05/10/18 08:21 Intake & Output 05/09/18 05/10/18 05/10/18 18:59 06:59 18:59 Intake Total 350 Balance 350 Weight 80 kg 80.5 kg Intake: Oral 350 Other: Voiding Method Toilet Toilet Bedside Commode Bedside Commode # Voids 5 1 - Exam -GENERAL: The patient is alert and oriented x3, patient is dyspneic and she cannot finish her sentences, she is in moderate respiratory distress. Well developed, well nourished. HEENT: Pupils are round and equally reacting to light. EOMI. No scleral icterus. No conjunctival pallor. Normocephalic, atraumatic. No pharyngeal erythema. No thyromegaly. CARDIOVASCULAR: S1 and S2 present. No murmurs, rubs, or gallops. -PULMONARY: Chest is clear to auscultation, no crackles. Patient has bilateral wheezing with prolonged expiratory phase and decrease air entry both sides, air movement is better than yesterday ABDOMEN: Soft, nontender, nondistended, normoactive bowel sounds. No palpable organomegaly. MUSCULOSKELETAL: No joint swelling or deformity. EXTREMITIES: No cyanosis, clubbing, or pedal edema. NEUROLOGICAL: Gross neurological examination did not reveal any focal deficits. SKIN: No rashes. - Labs CBC & Chem 7: 05/09/18 07:09 05/10/18 08:30 Labs: Abnormal Lab Results - Last 24 Hours (Table) 05/09/18 05/09/18 05/09/18 Range/Units 11:55 17:08 21:15 Chloride (98-107) mmol/L Carbon Dioxide (22-30) mmol/L BUN (7-17) mg/dL Glucose (74-99) mg/dL POC Glucose (mg/dL) 207 H 124 H 143 H (75-99) mg/dL 05/10/18 05/10/18 Range/Units 07:30 08:30 Chloride 92 L (98-107) mmol/L Carbon Dioxide 35 H (22-30) mmol/L BUN 30 H (7-17) mg/dL Glucose 172 H (74-99) mg/dL POC Glucose (mg/dL) 151 H (75-99) mg/dL Microbiology - Last 24 Hours (Table) 05/06/18 11:30 Blood Culture - Preliminary Blood No Growth after 72 hours 05/06/18 11:40 Blood Culture - Preliminary Blood No Growth after 72 hours Assessment and Plan Assessment: -Chronic obstructive lung disease, an acute exacerbation -Left lower lobe pneumonia -History of CHF, pulmonary congestion on chest x-ray -2 episodes of chest pain, of unclear etiology -History of CVA/TIA -History of fibromyalgia -GERD -Hyperlipidemia -Hypertension -Osteoarthritis -Hypothyroidism -Chronic pain syndrome -Chronic thrombocytopenia Plan: Patient admitted for COPD exacerbation and pneumonia and she remains dyspneic. Patient will continue with the same breathing treatment, oxygen, and steroids. hold IV hydration and in view of possible chf. Pulmonary team consult is appreciated. Patient was already started on antibiotic Zosyn and Levaquin which are changed to Augmentin. DVT and GI prophylaxis. Follow-up culture results. Patient chest x-ray shows possible CHF. echo: Pending and call cardiology consult is appreciated. Patient is on Aggrenox. Patient was restarted on Lasix and Aldactone and Lipitor. Patient has 2 episodes of chest pain which is resolved now, discussed with the cardiology team. Further recommendation depends on patient's clinical course Physical therapy and occupational therapy evaluation: Home with family Prognosis is guarded given severity of her illness Time with Patient: Greater than 30
[2018-05-10 11:52] LABS: Glucose,Whole Blood 122 mg/dL (75-99)
--- NOTE | 2018-05-10 15:00 | P.PN ---
Subjective Progress Note Date: 05/10/18 72-year-old female patient with known history of COPD has been maintained on DuoNeb neb last treatment [id number] along with oxygen at 2 L/m nasal cannula, was seen in our office yesterday because of increased shortness of breath, increased dyspnea, chest tightness and wheezing. She had a congested cough. She was unable to bring up much sputum. No pleurisy or hemoptysis. She was seen in the office and the patient had a chest x-ray that showed evidence of pulmonary vessel congestion and suspected left lower lobe pulmonary infiltration/pneumonia. No evidence of any pneumothorax. Patient is afebrile. The patient's hemodynamically stable. The patient was hospitalized in the past for a similar complaint and her last hospitalization was in December 2017 and back then the patient a CAT scan of the chest that showed some limited groundglass/. Tree and bud pulmonate infiltrates for which the patient underwent a bronchoscopy and the bronchioloalveolar lavage showed no evidence of any microbial growth. This was done by Dr. Faustin. The patient since then was doing fine utilizing her DuoNeb nebulized treatments. She is not using any form of maintenance respiratory medications. The patient also is known to have multiple medical problems and comorbidities. 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 She also has chronic degenerative arthritis and she has undergone a right shoulder and the right knee replacement and previous history of cervical spine fusion. She has chronic back pain and restless leg syndrome. No significant leukocytosis. The rest of the blood work essentially within normal limits. Cardiac enzymes have been negative. The patient is seen again today 05/08/2018 in follow-up on the regular medical floor. She is currently sitting up in a chair at the bedside. She is awake and alert in no acute distress. She is maintaining good O2 saturations in the 90s on 3 L/m per nasal cannula. Blood cultures reveal no growth. White count 9.1. Hemoglobin 14.2. Creatinine 1.03. She remains on bronchodilators, IV Solu-Medrol, empiric antibiotics. She is on oral diuretics. Cardiology is following. The patient is seen again today 05/09/2018 in follow-up on the regular medical floor. She is currently resting quite comfortably in bed. She remains awake and alert in no acute distress. She is maintaining good O2 saturations in the 90s on 3 L/m per nasal cannula. She's currently afebrile. Hemodynamically stable. Blood cultures reveal no growth to date. White count 7.4. Hemoglobin 14.4. Creatinine 1.14. She remains on bronchodilators, Zosyn and Levaquin, diuretics. On 05/10/2018, patient is still short of breath. She is still being treated for an acute COPD exacerbation. Note that she has also history of valvular heart disease with mitral regurgitation. No fever or chills. Still bronchus spastic and wheezy. I have the patient on Solu Medrol 40 g every 8 hours and Augmentin was also added as an empiric antibiotic coverage. No chest pain. She gets labored breathing when she does some activity and she gets worked 7 she becomes more bronchus spastic and wheezy. Limited edema in lower extremities bilaterally. Lasix is currently on hold. She is on DuoNeb neb last treatment [id number], Pulmicort Respules, IV Solu Medrol 40 mg every 8 hours and the rest of the outpatient indications of been ordered resume. Objective - Vital Signs Vital signs: Vital Signs Temp 97.4 F L 05/10/18 05:35 Pulse 102 H 05/10/18 11:55 Resp 17 05/10/18 05:35 BP 105/65 05/10/18 05:35 Pulse Ox 98 05/10/18 08:21 Intake & Output 05/09/18 05/10/18 05/10/18 18:59 06:59 18:59 Intake Total 350 Balance 350 Weight 80 kg 80.5 kg Intake: Oral 350 Other: Voiding Method Toilet Toilet Toilet Bedside Commode Bedside Commode Bedside Commode # Voids 5 1 4 # Bowel Movements 0 - Exam Gen. appearance the patient is calm comfortable and mild degree of respiratory distress, a bit anxious Head exam was generally normal. There was no scleral icterus or corneal arcus. Mucous membranes were moist. Neck was supple and without jugular venous distension, thyromegaly, or carotid bruits. Carotids were easily palpable bilaterally. There was no adenopathy. Lungs sounds are diminished bilaterally along with marked diminished breath sounds and end expiratory wheezes heard throughout the lung chan bilaterally. Exhalation phases especially prolonged Cardiac exam revealed the PMI to be normally situated and sized. The rhythm was regular and no extrasystoles were noted during several minutes of auscultation. The first and second heart sounds were normal and physiologic splitting of the second heart sound was noted. There were no murmurs, rubs, clicks, or gallops. Abdominal exam revealed normal bowel sounds. The abdomen was soft, non-tender, and without masses, organomegaly, or appreciable enlargement of the abdominal aorta. Examination of the extremities revealed easily palpable radial, femoral and pedal pulses. There was no cyanosis, clubbing or edema. Muscular skeletal exam shows normal strength and tone. The patient has had a right shoulder replacement scars in place and the patient has also had a right knee replacement the scar is in place. No scoliosis. No deformities. Examination of the skin revealed no evidence of significant rashes, suspicious appearing nevi or other concerning lesions. Neurologically the patient has some right facial weakness otherwise motor function is equal and symmetrical in all 4 extremities and the patient is awake and alert 3. Psychiatric the patient has normal mood and affect and judgment and insight. - Labs CBC & Chem 7: 05/09/18 07:09 05/10/18 08:30 Labs: Abnormal Lab Results - Last 24 Hours (Table) 05/09/18 05/09/18 05/10/18 Range/Units 17:08 21:15 07:30 Chloride (98-107) mmol/L Carbon Dioxide (22-30) mmol/L BUN (7-17) mg/dL Glucose (74-99) mg/dL POC Glucose (mg/dL) 124 H 143 H 151 H (75-99) mg/dL 05/10/18 05/10/18 Range/Units 08:30 11:44 Chloride 92 L (98-107) mmol/L Carbon Dioxide 35 H (22-30) mmol/L BUN 30 H (7-17) mg/dL Glucose 172 H (74-99) mg/dL POC Glucose (mg/dL) 122 H (75-99) mg/dL Microbiology - Last 24 Hours (Table) 05/06/18 11:30 Blood Culture - Preliminary Blood No Growth after 96 hours 05/06/18 11:40 Blood Culture - Preliminary Blood No Growth after 96 hours Assessment and Plan Plan: Assessment 1 acute COPD exacerbation with suspected left lower lobe pneumonia, still bronchospastic and wheezy. The chest x-ray from yesterday showed COPD and continued patchy left basilar atelectasis/infiltrates. Limited improvement for now. 2 valvular heart disease with moderate mitral stenosis and severe mitral regurgitation with a component of heart failure as evident on chest x-ray on admission. The patient is a preserved LV function with an ejection fraction of 60-65% 3 advanced oxygen-dependent COPD maintained on DuoNeb nebulized treatment around -the-clock 4 CVA with recurrent TIAs and the residual right facial weakness 5 hypertension 6 hyperlipidemia 7 hypothyroidism 8 coronary artery disease 9 fibromyalgia 10 chronic pain Plan Continue same treatment of bronchodilators, steroids and the patient is currently on Augmentin. I think the predominant component Attributing to her shortness of breath and COPD and questionable left lower lobe pneumonia. Chest x-ray still showing some left basilar infiltrate. Continue same treatment. We' ll continue to follow and make further recommendations based on her progress. No need for any diuretics. The patient is currently on Aldactone 25 L by mouth daily and Lasix is currently on hold. Xanax for anxiety.
[2018-05-10 17:24] LABS: Glucose,Whole Blood 127 mg/dL (75-99)
[2018-05-10 20:10] LABS: Glucose,Whole Blood 139 mg/dL (75-99)
[2018-05-10] MEDS: ATORVASTATIN 10 MG TAB PO SCH (21:40)
[2018-05-10] MEDS: TEMAZEPAM 15 MG CAP PO PRN (23:17)
[2018-05-11] MEDS: HYDROcodone/APAP 10-325MG 1 EACH TAB PO PRN ×3 (04:54→22:07)
[2018-05-11] MEDS: LEVOTHYROXINE 112 MCG TAB PO SCH (05:39)
[2018-05-11] MEDS: BUDESONIDE 1 MG/2 ML NEBU INHALATION SCH ×2 (06:56→19:37)
[2018-05-11] MEDS: FORMOTEROL FUMARATE 20 MCG/2 ML NEBU INHALATION SCH ×2 (06:56→19:37)
[2018-05-11] MEDS: IPRATROPIUM-ALBUTEROL 3 ML NEB INHALATION SCH ×4 (06:56→19:38)
[2018-05-11 08:10] LABS: Glucose,Whole Blood 145 mg/dL (75-99)
[2018-05-11] MEDS: INSULIN ASPART 100 UNIT/ML 1 ML 10 ML VIAL SQ SCH ×4 (09:15→21:56)
[2018-05-11] MEDS: methylPREDNISolone SOD SUCCI 40 MG/ML 1 ML VIAL IV SCH ×2 (09:15→15:53)
[2018-05-11] MEDS: FAMOTIDINE 20 MG TAB PO SCH (09:16)
[2018-05-11] MEDS: DIPYRIDAMOLE-ASPIRIN 200-25 MG 1 EACH CPMP.12HR PO SCH ×2 (09:16→21:57)
[2018-05-11] MEDS: AMOXIC-POT CLAV 875-125MG 1 EACH TAB PO SCH (09:16)
[2018-05-11] MEDS: HEPARIN SODIUM,PORCINE 5,000 UNIT/ML 1 ML VIAL SQ SCH ×2 (09:17→21:57)
[2018-05-11] MEDS: FLUoxetine HCL 20 MG CAP PO SCH (09:17)
[2018-05-11] MEDS: MAGNESIUM OXIDE 400 MG TAB PO SCH (09:17)
[2018-05-11] MEDS: SPIRONOLACTONE 25 MG TAB PO SCH (09:18)
[2018-05-11] MEDS: PREGABALIN 75 MG CAP PO SCH ×3 (09:23→22:00)
[2018-05-11 09:50] LABS: Calcium 8.3 mg/dL (8.4-10.2); Potassium 3.9 mmol/L (3.5-5.1)
--- NOTE | 2018-05-11 09:51 | CDI ---
Last Revision, October 2017 Documentation Clarification Form 2nd Request Date: 05/07/2018 1:42:00 PM From: Shadia Quiñonez RN, CCDS Admit Date: 05/06/2018 10:30:00 AM Patient Name: Jessica Scanlon Visit Number: [id number] ATTENTION: The Clinical Documentation Specialists (CDI) and [facility] Coding Staff appreciate your assistance in clarifying documentation. Please respond to the clarification below the line at the bottom and electronically sign. The CDI & [facility] Coding staff will review the response and follow-up if needed. Please note: Queries are made part of the Legal Health Record. If you have any questions, please contact the author of this message via ITS. Dr. Grant/Ramin Pneumonia was documented in your notes on 05/06 and requires further specificty History/Risk Factors: COPD, CHF, TIA, GERD Clinical Indicators: WBC: 7.3/4.2 Left shift: 6.1/3.6 CXR: Bilateral infiltrate and mild chf 05/07 Pulmonary Consult: "acute COPD exacerbation with suspected left lower lobe pneumonia." 05/07 Pulmonary Lung/Breathing assessment: "sounds are diminished bilaterally along with marked diminished breath sounds and diffuse expiratory wheezes heard throughout the lung chan bilaterally. Exhalation phases especially prolonged. Treatment: Antibiotics: Zosyn 3.375 gm IVPB q 8 hrs, Levaquin 750 mg IVPB q 24 hrs O2: 2-3 L NC Breathing Tx: Duoneb QID and Q 2 hrs PRN, Pulmoicort BID In order to capture the severity of condition, please clarify if the condition signifies and you are treating for: Aspiration Pneumonia, identify if: Due to solids or liquids Bacterial Pneumonia, specify causal organism) Gram Negative Pneumonia Due to Strep Due to Staph Due to E. Coli Other bacteria Viral Pneumonia, specify casual organism Ventilator Associated Pneumonia Healthcare Acquired Pneumonia/Pneumonia, unspecified Other, please specify Unable to determine Please continue to document in your progress notes and discharge summary in order to capture severity of illness and risk of mortality. Include clinical findings that support your diagnosis. BACTERIAL PNUEMONIA, OTHER BACTERIA MTDD
[2018-05-11 11:41] LABS: Glucose,Whole Blood 139 mg/dL (75-99)
--- NOTE | 2018-05-11 12:42 | P.PN ---
Subjective This is a pleasant 72 years old female with past medical history of coronary artery disease, heart failure, COPD, CVA/TIA, fibromyalgia, GERD, hyperlipidemia , hypertension, osteoarthritis, hypothyroidism, hallway today to see her insurance coordinator at the office and he sent her to the hospital as direct admission. No records in the paper chart. Patient was complaining of from progressive increasing dyspnea over the last 2 days associated with worsening cough and phlegm with grayish color associated with some chest tightness, no chest pain. No change in urine or bowel habits, no diarrhea. No fever. Patient has long history of COPD and chronic cough, she is oxygen dependent 2-3 L/m by nasal cannula, but she doesn't know if she uses prednisone at home On admission patient was short of breath she can finish her sentences because of her breathing difficulty 05/07/2018 Patient still dyspneic, and needs breathing treatments. Vitals look stable. She maintains good saturation on 2 L/m oxygen via NC, labs are reviewed showing WBC 7.3, sodium 139 creatinine 0.9S of the labs were unremarkable. Chest x-ray shows bilateral infiltrates and pleural effusion which correlates with mild CHF. Echo is ordered and pending. Also we going to check her troponin, we'll check EKG and she might benefit from poll clerk evaluation. Resume her home medication. Patient was noticed to be an Aggrenox [dipyridamole/aspirin] . patient states she has previous heart disease and and sometimes it was recommended open heart surgery for her but she wasn't sure for what reason, she denies history of cardiac cath 05/08/2018 Patient still dyspneic, and needs breathing treatments. Vitals look stable. Afebrile. She maintains good saturation on 2 L/m oxygen via NC, labs are reviewed showing. Increase in the WBC from 4.2 to 9.1 with neutrophils 91%. Creatinine 1.03. Blood Cultures are negative. Patient had 2 episodes of chest pain last night, H1 about 20 minutes and relieved by per, it was in the central chest radiating to the right shoulder, nonspecific in character. This morning patient is chest pain-free Blood pressure on the low side after restarting blood pressure medication. She is currently Off fluid due to her CHF possibility. Echo: Flexion fraction 55- 60% and mild LVH and poll clerk following the patient 05/10/2018 Patient is still dyspneic breathing treatment. Vitas looks stable blood pressure on the low side. Patient is afebrile. Continue with oxygen therapy. She doesn't have chest anymore today. However she feels pressure on her chest she states like an elephant sitting on my chest. Sodium 138 potassium 3.5 creatinine 1.0 glucose 172. Patient continue on Solu-Medrol 40 mg IV every 8 hours area at Augmentin is been added today. Hold Lasix 05/11/2018 Patient dyspnea is improving at rest however she has difficulty finishing her symptoms still. Blood pressure is improving. Patient remains of bile and her IV antibiotics were changed to oral antibiotics per pulmonary recommendation. Patient to continue with oxygen therapy. No chest pain. She still feels some heaviness on her chest. Labs shows sodium 138 potassium 3.9, Betadine high at 31, creatinine 0.99, but GFR is at 58, suspicious for CTD stage III. Her sugars is well controlled Objective - Vital Signs Vital signs: Vital Signs Temp 97.8 F 05/11/18 05:10 Pulse 78 05/11/18 11:03 Resp 18 05/11/18 05:10 BP 114/60 05/11/18 05:10 Pulse Ox 95 05/11/18 06:59 Intake & Output 05/10/18 05/11/18 05/11/18 18:59 06:59 18:59 Intake Total 240 Balance 240 Weight 81 kg Intake: Oral 240 Other: Voiding Method Toilet Toilet Bedside Commode Bedside Commode # Voids 4 3 # Bowel Movements 0 - Exam -GENERAL: The patient is alert and oriented x3, patient is dyspneic and she cannot finish her sentences, she is in moderate respiratory distress. Well developed, well nourished. HEENT: Pupils are round and equally reacting to light. EOMI. No scleral icterus. No conjunctival pallor. Normocephalic, atraumatic. No pharyngeal erythema. No thyromegaly. CARDIOVASCULAR: S1 and S2 present. No murmurs, rubs, or gallops. -PULMONARY: Chest is clear to auscultation, no crackles. Patient has bilateral wheezing with prolonged expiratory phase and decrease air entry both sides, air movement is better than yesterday ABDOMEN: Soft, nontender, nondistended, normoactive bowel sounds. No palpable organomegaly. MUSCULOSKELETAL: No joint swelling or deformity. EXTREMITIES: No cyanosis, clubbing, or pedal edema. NEUROLOGICAL: Gross neurological examination did not reveal any focal deficits. SKIN: No rashes. - Labs CBC & Chem 7: 05/09/18 07:09 05/11/18 07:41 Labs: Abnormal Lab Results - Last 24 Hours (Table) 05/10/18 05/10/18 05/11/18 Range/Units 17:11 20:08 07:40 Chloride (98-107) mmol/L Carbon Dioxide (22-30) mmol/L BUN (7-17) mg/dL Glucose (74-99) mg/dL POC Glucose (mg/dL) 127 H 139 H 145 H (75-99) mg/dL Calcium (8.4-10.2) mg/dL 05/11/18 05/11/18 Range/Units 07:41 11:32 Chloride 93 L (98-107) mmol/L Carbon Dioxide 36 H (22-30) mmol/L BUN 31 H (7-17) mg/dL Glucose 116 H (74-99) mg/dL POC Glucose (mg/dL) 139 H (75-99) mg/dL Calcium 8.3 L (8.4-10.2) mg/dL Microbiology - Last 24 Hours (Table) 05/11/18 07:05 Sputum Culture - Preliminary Sputum 05/06/18 11:30 Blood Culture - Preliminary Blood No Growth after 96 hours 05/06/18 11:40 Blood Culture - Preliminary Blood No Growth after 96 hours Assessment and Plan Assessment: -Chronic obstructive lung disease, an acute exacerbation -Left lower lobe pneumonia -History of CHF, pulmonary congestion on chest x-ray -2 episodes of chest pain, of unclear etiology -History of CVA/TIA -History of fibromyalgia -GERD -Hyperlipidemia -Hypertension -Osteoarthritis -Hypothyroidism -Chronic pain syndrome -Chronic thrombocytopenia Plan: Patient admitted for COPD exacerbation and pneumonia and she remains dyspneic. Patient will continue with the same breathing treatment, oxygen, and steroids. hold IV hydration and in view of possible chf. Pulmonary team consult is appreciated. Patient was already started on antibiotic Zosyn and Levaquin which are changed to Augmentin. DVT and GI prophylaxis. Follow-up culture results. Patient chest x-ray shows possible CHF. echo: Pending and call cardiology consult is appreciated. Patient is on Aggrenox. Patient was restarted on Lasix and Aldactone and Lipitor. Patient has 2 episodes of chest pain which is resolved now, discussed with the cardiology team. Further recommendation depends on patient's clinical course Physical therapy and occupational therapy evaluation: Home with family Prognosis is guarded given severity of her illness
[2018-05-11] MEDS ORDERED: FUROSEMIDE 10 MG/ML 2 ML VIAL IV ONE (14:45)
--- NOTE | 2018-05-11 14:45 | P.PN ---
Subjective Progress Note Date: 05/11/18 Principal diagnosis: Acute COPD exacerbation with suspected left lower lobe pneumonia 72-year-old female patient with known history of COPD has been maintained on DuoNeb neb last treatment [id number] along with oxygen at 2 L/m nasal cannula, was seen in our office yesterday because of increased shortness of breath, increased dyspnea, chest tightness and wheezing. She had a congested cough. She was unable to bring up much sputum. No pleurisy or hemoptysis. She was seen in the office and the patient had a chest x-ray that showed evidence of pulmonary vessel congestion and suspected left lower lobe pulmonary infiltration/pneumonia. No evidence of any pneumothorax. Patient is afebrile. The patient's hemodynamically stable. The patient was hospitalized in the past for a similar complaint and her last hospitalization was in December 2017 and back then the patient a CAT scan of the chest that showed some limited groundglass/. Tree and bud pulmonate infiltrates for which the patient underwent a bronchoscopy and the bronchioloalveolar lavage showed no evidence of any microbial growth. This was done by Dr. Faustin. The patient since then was doing fine utilizing her DuoNeb nebulized treatments. She is not using any form of maintenance respiratory medications. The patient also is known to have multiple medical problems and comorbidities. 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 She also has chronic degenerative arthritis and she has undergone a right shoulder and the right knee replacement and previous history of cervical spine fusion. She has chronic back pain and restless leg syndrome. No significant leukocytosis. The rest of the blood work essentially within normal limits. Cardiac enzymes have been negative. The patient is seen again today 05/08/2018 in follow-up on the regular medical floor. She is currently sitting up in a chair at the bedside. She is awake and alert in no acute distress. She is maintaining good O2 saturations in the 90s on 3 L/m per nasal cannula. Blood cultures reveal no growth. White count 9.1. Hemoglobin 14.2. Creatinine 1.03. She remains on bronchodilators, IV Solu-Medrol, empiric antibiotics. She is on oral diuretics. Cardiology is following. The patient is seen again today 05/09/2018 in follow-up on the regular medical floor. She is currently resting quite comfortably in bed. She remains awake and alert in no acute distress. She is maintaining good O2 saturations in the 90s on 3 L/m per nasal cannula. She's currently afebrile. Hemodynamically stable. Blood cultures reveal no growth to date. White count 7.4. Hemoglobin 14.4. Creatinine 1.14. She remains on bronchodilators, Zosyn and Levaquin, diuretics. On 05/10/2018, patient is still short of breath. She is still being treated for an acute COPD exacerbation. Note that she has also history of valvular heart disease with mitral regurgitation. No fever or chills. Still bronchus spastic and wheezy. I have the patient on Solu Medrol 40 g every 8 hours and Augmentin was also added as an empiric antibiotic coverage. No chest pain. She gets labored breathing when she does some activity and she gets worked 7 she becomes more bronchus spastic and wheezy. Limited edema in lower extremities bilaterally. Lasix is currently on hold. She is on DuoNeb neb last treatment [id number], Pulmicort Respules, IV Solu Medrol 40 mg every 8 hours and the rest of the outpatient indications of been ordered resume. On 05/11/2018 patient seen in follow-up on medical surgical floor. She states she is improving, no fever, no chills. No chest discomfort. Lung sounds are positive for bibasilar crackles, patient does get dyspneic with any exertion. Has productive cough with clear sputum. Microbiology remains negative. Patient remains on empiric antibiotics in the form of Augmentin for the left lower lobe pneumonia. She is on nebulized bronchodilators, Pulmicort and Perforomist. Patient has some limited edema in her lower extremities bilaterally. A 6 remains on hold. Patient continues on her Aldactone. Today' s lab work has been reviewed, sodium is 138, potassium is 3.9, chloride is 93, CO2 36, B1 is 31, creatinine 0.99. Objective - Vital Signs Vital signs: Vital Signs Temp 97.8 F 05/11/18 05:10 Pulse 78 05/11/18 11:03 Resp 18 05/11/18 05:10 BP 114/60 05/11/18 05:10 Pulse Ox 95 05/11/18 06:59 Intake & Output 05/10/1818 18 18:59 06:59 18:59 Intake Total 240 Balance 240 Weight 81 kg Intake: Oral 240 Other: Voiding Method Toilet Toilet Bedside Commode Bedside Commode # Voids 4 3 # Bowel Movements 0 - Exam Gen. appearance the patient is calm comfortable and mild degree of respiratory distress, a bit anxious Head exam was generally normal. There was no scleral icterus or corneal arcus. Mucous membranes were moist. Neck was supple and without jugular venous distension, thyromegaly, or carotid bruits. Carotids were easily palpable bilaterally. There was no adenopathy. Lungs sounds are diminished bilaterally with bibasilar crackles, no significant wheezes noted on today's exam, there is pronation of the expiratory phase Cardiac exam revealed the PMI to be normally situated and sized. The rhythm was regular and no extrasystoles were noted during several minutes of auscultation. The first and second heart sounds were normal and physiologic splitting of the second heart sound was noted. There were no murmurs, rubs, clicks, or gallops. Abdominal exam revealed normal bowel sounds. The abdomen was soft, non-tender, and without masses, organomegaly, or appreciable enlargement of the abdominal aorta. Examination of the extremities revealed easily palpable radial, femoral and pedal pulses. There was no cyanosis, clubbing or edema. Muscular skeletal exam shows normal strength and tone. The patient has had a right shoulder replacement scars in place and the patient has also had a right knee replacement the scar is in place. No scoliosis. No deformities. Examination of the skin revealed no evidence of significant rashes, suspicious appearing nevi or other concerning lesions. Neurologically the patient has some right facial weakness otherwise motor function is equal and symmetrical in all 4 extremities and the patient is awake and alert 3. Psychiatric the patient has normal mood and affect and judgment and insight. - Labs CBC & Chem 7: 05/09/18 07:09 05/11/18 07:41 Labs: Abnormal Lab Results - Last 24 Hours (Table) 05/10/18 05/10/18 05/10/18 Range/Units 11:44 17:11 20:08 Chloride (98-107) mmol/L Carbon Dioxide (22-30) mmol/L BUN (7-17) mg/dL Glucose (74-99) mg/dL POC Glucose (mg/dL) 122 H 127 H 139 H (75-99) mg/dL Calcium (8.4-10.2) mg/dL 05/11/18 05/11/18 Range/Units 07:40 07:41 Chloride 93 L (98-107) mmol/L Carbon Dioxide 36 H (22-30) mmol/L BUN 31 H (7-17) mg/dL Glucose 116 H (74-99) mg/dL POC Glucose (mg/dL) 145 H (75-99) mg/dL Calcium 8.3 L (8.4-10.2) mg/dL Microbiology - Last 24 Hours (Table) 05/11/18 07:05 Sputum Culture - Preliminary Sputum 05/06/18 11:30 Blood Culture - Preliminary Blood No Growth after 96 hours 05/06/18 11:40 Blood Culture - Preliminary Blood No Growth after 96 hours Assessment and Plan Plan: Assessment: 1 acute COPD exacerbation with suspected left lower lobe pneumonia, still bronchospastic and wheezy. The chest x-ray from yesterday showed COPD and continued patchy left basilar atelectasis/infiltrates. Limited improvement for now. 2 valvular heart disease with moderate mitral stenosis and severe mitral regurgitation with a component of heart failure as evident on chest x-ray on admission. 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 Patient is afebrile. Patient has bibasilar crackles, and in view of her underlying valvular heart disease, we will add a small dose of Lasix 20 mg 1, No chest pain, no worsening dyspnea. Continue nebulized bronchodilators. Patient is stable for discharge home tomorrow. I performed a history & physical examination of the patient and discussed their management with my nurse practitioner, Rhonda Go. I reviewed the nurse practitioner's note and agree with the documented findings and plan of care. Lung sounds are positive for bibasilar crackles, and prolongation of expiratory phase. No significant wheezing. The findings and the impression was discussed with the patient. I attest to the documentation by the nurse practitioner. Time with Patient: Less than 30
[2018-05-11 17:46] LABS: Glucose,Whole Blood 159 mg/dL (75-99)
[2018-05-11 20:02] LABS: Glucose,Whole Blood 202 mg/dL (75-99)
[2018-05-11] MEDS: ATORVASTATIN 10 MG TAB PO SCH (21:57)
[2018-05-12] MEDS: methylPREDNISolone SOD SUCCI 40 MG/ML 1 ML VIAL IV SCH ×4 (00:19→23:24)
[2018-05-12] MEDS: ALPRAZolam 0.25 MG TAB PO PRN (00:19)
[2018-05-12] MEDS: diphenhydrAMINE 25 MG CAP PO PRN ×2 (04:48→20:19)
[2018-05-12] MEDS: LEVOTHYROXINE 112 MCG TAB PO SCH (06:21)
[2018-05-12] MEDS: FORMOTEROL FUMARATE 20 MCG/2 ML NEBU INHALATION SCH ×2 (07:09→20:47)
[2018-05-12] MEDS: IPRATROPIUM-ALBUTEROL 3 ML NEB INHALATION SCH ×4 (07:09→20:40)
[2018-05-12] MEDS: BUDESONIDE 1 MG/2 ML NEBU INHALATION SCH ×2 (07:09→20:40)
[2018-05-12 07:13] LABS: Glucose,Whole Blood 151 mg/dL (75-99)
[2018-05-12] MEDS: PREGABALIN 75 MG CAP PO SCH ×3 (07:43→21:53)
[2018-05-12] MEDS: AMOXIC-POT CLAV 875-125MG 1 EACH TAB PO SCH (07:43)
[2018-05-12] MEDS: FAMOTIDINE 20 MG TAB PO SCH (07:43)
[2018-05-12] MEDS: DIPYRIDAMOLE-ASPIRIN 200-25 MG 1 EACH CPMP.12HR PO SCH (07:44)
[2018-05-12] MEDS: FLUoxetine HCL 20 MG CAP PO SCH (07:44)
[2018-05-12] MEDS: MAGNESIUM OXIDE 400 MG TAB PO SCH (07:45)
[2018-05-12] MEDS: SPIRONOLACTONE 25 MG TAB PO SCH (07:47)
[2018-05-12] MEDS: INSULIN ASPART 100 UNIT/ML 1 ML 10 ML VIAL SQ SCH ×4 (07:49→20:18)
[2018-05-12 08:37] LABS: Calcium 8.5 mg/dL (8.4-10.2); Potassium 4.1 mmol/L (3.5-5.1)
[2018-05-12] MEDS: HEPARIN SODIUM,PORCINE 5,000 UNIT/ML 1 ML VIAL SQ SCH ×2 (09:31→21:53)
[2018-05-12] MEDS: HYDROcodone/APAP 10-325MG 1 EACH TAB PO PRN ×2 (09:40→15:42)
--- NOTE | 2018-05-12 10:46 | P.PN ---
Subjective Progress Note Date: 05/12/18 Principal diagnosis: Acute COPD exacerbation with suspected left lower lobe pneumonia 72-year-old female patient with known history of COPD has been maintained on DuoNeb neb last treatment [id number] along with oxygen at 2 L/m nasal cannula, was seen in our office yesterday because of increased shortness of breath, increased dyspnea, chest tightness and wheezing. She had a congested cough. She was unable to bring up much sputum. No pleurisy or hemoptysis. She was seen in the office and the patient had a chest x-ray that showed evidence of pulmonary vessel congestion and suspected left lower lobe pulmonary infiltration/pneumonia. No evidence of any pneumothorax. Patient is afebrile. The patient's hemodynamically stable. The patient was hospitalized in the past for a similar complaint and her last hospitalization was in December 2017 and back then the patient a CAT scan of the chest that showed some limited groundglass/. Tree and bud pulmonate infiltrates for which the patient underwent a bronchoscopy and the bronchioloalveolar lavage showed no evidence of any microbial growth. This was done by Dr. Faustin. The patient since then was doing fine utilizing her DuoNeb nebulized treatments. She is not using any form of maintenance respiratory medications. The patient also is known to have multiple medical problems and comorbidities. 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 She also has chronic degenerative arthritis and she has undergone a right shoulder and the right knee replacement and previous history of cervical spine fusion. She has chronic back pain and restless leg syndrome. No significant leukocytosis. The rest of the blood work essentially within normal limits. Cardiac enzymes have been negative. The patient is seen again today 05/08/2018 in follow-up on the regular medical floor. She is currently sitting up in a chair at the bedside. She is awake and alert in no acute distress. She is maintaining good O2 saturations in the 90s on 3 L/m per nasal cannula. Blood cultures reveal no growth. White count 9.1. Hemoglobin 14.2. Creatinine 1.03. She remains on bronchodilators, IV Solu-Medrol, empiric antibiotics. She is on oral diuretics. Cardiology is following. The patient is seen again today 05/09/2018 in follow-up on the regular medical floor. She is currently resting quite comfortably in bed. She remains awake and alert in no acute distress. She is maintaining good O2 saturations in the 90s on 3 L/m per nasal cannula. She's currently afebrile. Hemodynamically stable. Blood cultures reveal no growth to date. White count 7.4. Hemoglobin 14.4. Creatinine 1.14. She remains on bronchodilators, Zosyn and Levaquin, diuretics. On 05/10/2018, patient is still short of breath. She is still being treated for an acute COPD exacerbation. Note that she has also history of valvular heart disease with mitral regurgitation. No fever or chills. Still bronchus spastic and wheezy. I have the patient on Solu Medrol 40 g every 8 hours and Augmentin was also added as an empiric antibiotic coverage. No chest pain. She gets labored breathing when she does some activity and she gets worked 7 she becomes more bronchus spastic and wheezy. Limited edema in lower extremities bilaterally. Lasix is currently on hold. She is on DuoNeb neb last treatment [id number], Pulmicort Respules, IV Solu Medrol 40 mg every 8 hours and the rest of the outpatient indications of been ordered resume. On 05/11/2018 patient seen in follow-up on medical surgical floor. She states she is improving, no fever, no chills. No chest discomfort. Lung sounds are positive for bibasilar crackles, patient does get dyspneic with any exertion. Has productive cough with clear sputum. Microbiology remains negative. Patient remains on empiric antibiotics in the form of Augmentin for the left lower lobe pneumonia. She is on nebulized bronchodilators, Pulmicort and Perforomist. Patient has some limited edema in her lower extremities bilaterally. A 6 remains on hold. Patient continues on her Aldactone. Today' s lab work has been reviewed, sodium is 138, potassium is 3.9, chloride is 93, CO2 36, B1 is 31, creatinine 0.99. On 05/12/2018 patient seen again on medical surgical floor. She states she is short of breath at rest, she is having some chest tightness, dyspnea, she feels like her lungs are filling up again with fluid. We gave her 1 dose of oral Lasix 20 mg in patient states she did not diurese significantly. Her oxygenation stable on 2 L per nasal cannula in the pulse ox is 95%, she remains afebrile, denies any fever or chills. On sounds are positive for bibasilar crackles, and a few scattered expiratory wheezes in the anterior upper lobes. Today's BMP was reviewed, sodium is 137, potassium is 4.1, chloride is 94, CO2 36, BUN is 33, creatinine is 1.0. Changes remain negative to date. Patient is being treated with oral Augmentin for her community-acquired left lower lobe pneumonia. We will obtain a follow-up chest x-ray today, we may have to give the patient another dose of IV Lasix, and monitor for her response. Objective - Vital Signs Vital signs: Vital Signs Temp 97.8 F 05/12/18 05:38 Pulse 88 05/12/18 07:33 Resp 18 05/12/18 05:38 BP 112/76 05/12/18 05:38 Pulse Ox 95 05/12/18 05:38 Intake & Output 05/11/18 05/12/18 05/12/18 18:59 06:59 18:59 Weight 81 kg Other: Voiding Method Bedside Commode Bedside Commode # Voids 3 2 - Exam Gen. appearance the patient is calm comfortable and mild degree of respiratory distress, a bit anxious Head exam was generally normal. There was no scleral icterus or corneal arcus. Mucous membranes were moist. Neck was supple and without jugular venous distension, thyromegaly, or carotid bruits. Carotids were easily palpable bilaterally. There was no adenopathy. Lungs sounds are diminished bilaterally with bibasilar crackles, a few expiratory wheezes wheezes noted on today's exam, there is prolongation of the expiratory phase Cardiac exam revealed the PMI to be normally situated and sized. The rhythm was regular and no extrasystoles were noted during several minutes of auscultation. The first and second heart sounds were normal and physiologic splitting of the second heart sound was noted. There were no murmurs, rubs, clicks, or gallops. Abdominal exam revealed normal bowel sounds. The abdomen was soft, non-tender, and without masses, organomegaly, or appreciable enlargement of the abdominal aorta. Examination of the extremities revealed easily palpable radial, femoral and pedal pulses. There was no cyanosis, clubbing or edema. Muscular skeletal exam shows normal strength and tone. The patient has had a right shoulder replacement scars in place and the patient has also had a right knee replacement the scar is in place. No scoliosis. No deformities. Examination of the skin revealed no evidence of significant rashes, suspicious appearing nevi or other concerning lesions. Neurologically the patient has some right facial weakness otherwise motor function is equal and symmetrical in all 4 extremities and the patient is awake and alert 3. Psychiatric the patient has normal mood and affect and judgment and insight. - Labs CBC & Chem 7: 05/09/18 07:09 05/12/18 07:14 Labs: Abnormal Lab Results - Last 24 Hours (Table) 05/11/18 05/11/18 05/11/18 Range/Units 11:32 17:34 20:00 Chloride (98-107) mmol/L Carbon Dioxide (22-30) mmol/L BUN (7-17) mg/dL Glucose (74-99) mg/dL POC Glucose (mg/dL) 139 H 159 H 202 H (75-99) mg/dL 05/12/18 05/12/18 Range/Units 07:05 07:14 Chloride 94 L (98-107) mmol/L Carbon Dioxide 36 H (22-30) mmol/L BUN 33 H (7-17) mg/dL Glucose 162 H (74-99) mg/dL POC Glucose (mg/dL) 151 H (75-99) mg/dL Microbiology - Last 24 Hours (Table) 05/11/18 07:05 Gram Stain - Preliminary Sputum Sputum Culture - Preliminary 05/06/18 11:30 Blood Culture - Preliminary Blood No Growth after 120 hours 05/06/18 11:40 Blood Culture - Preliminary Blood No Growth after 120 hours Assessment and Plan Plan: Assessment: 1 acute COPD exacerbation with left lower lobe pneumonia, community-acquired 2 valvular heart disease with moderate mitral stenosis and severe mitral regurgitation with a component of heart failure as evident on chest x-ray on admission. The patient is a preserved LV function with an ejection fraction of 60-65% 3 advanced oxygen-dependent COPD maintained on DuoNeb nebulized treatment around -the-clock 4 CVA with recurrent TIAs and the residual right facial weakness 5 hypertension 6 hyperlipidemia 7 hypothyroidism 8 coronary artery disease 9 fibromyalgia 10 chronic pain Plan We will obtain a follow-up 2 view chest x-ray today, patient is complaining of dyspnea at rest, she feels as though her lungs are filling up with fluid, we may have to give the patient an additional dose of IV Lasix. His vital signs remain stable, no fever or chills, microbiology is negative thus far. Oxygenation is stable on 2 L per nasal cannula. Continue current antibiotic coverage, continue nebulized bronchodilators. Will review the results of the chest x-ray I performed a history & physical examination of the patient and discussed their management with my nurse practitioner, Rhonda Go. I reviewed the nurse practitioner's note and agree with the documented findings and plan of care. Lung sounds are positive for bibasilar crackles, and prolongation of expiratory phase. No significant wheezing. The findings and the impression was discussed with the patient. I attest to the documentation by the nurse practitioner. Time with Patient: Less than 30
--- NOTE | 2018-05-12 11:17 | XR ---
EXAMINATION TYPE: XR chest 2V DATE OF EXAM: 05/12/2018 COMPARISON: 05/09/2018 HISTORY: Shortness of breath TECHNIQUE: Frontal and lateral views of the chest are obtained. FINDINGS: Pulmonary venous congestion with strandy density left lower lobe and small bilateral pleural effusion s. Heart size is stable. Mediastinal structures are stable and grossly unremarkable. No evidence for hilar prominence. Degenerative changes dorsal spine. IMPRESSION: 1. Pulmonary venous congestion with strandy density left lower lobe and small bilateral pleural effus ions.
[2018-05-12 11:36] LABS: Glucose,Whole Blood 183 mg/dL (75-99)
[2018-05-12] MEDS ORDERED: FUROSEMIDE 10 MG/ML 4 ML VIAL IV STA (11:46)
--- NOTE | 2018-05-12 13:21 | P.PN ---
Subjective This is a pleasant 72 years old female with past medical history of coronary artery disease, heart failure, COPD, CVA/TIA, fibromyalgia, GERD, hyperlipidemia , hypertension, osteoarthritis, hypothyroidism, hallway today to see her boarding house cook at the office and he sent her to the hospital as direct admission. No records in the paper chart. Patient was complaining of from progressive increasing dyspnea over the last 2 days associated with worsening cough and phlegm with grayish color associated with some chest tightness, no chest pain. No change in urine or bowel habits, no diarrhea. No fever. Patient has long history of COPD and chronic cough, she is oxygen dependent 2-3 L/m by nasal cannula, but she doesn't know if she uses prednisone at home On admission patient was short of breath she can finish her sentences because of her breathing difficulty 05/07/2018 Patient still dyspneic, and needs breathing treatments. Vitals look stable. She maintains good saturation on 2 L/m oxygen via NC, labs are reviewed showing WBC 7.3, sodium 139 creatinine 0.9S of the labs were unremarkable. Chest x-ray shows bilateral infiltrates and pleural effusion which correlates with mild CHF. Echo is ordered and pending. Also we going to check her troponin, we'll check EKG and she might benefit from fundraising sale representative evaluation. Resume her home medication. Patient was noticed to be an Aggrenox [dipyridamole/aspirin] . patient states she has previous heart disease and and sometimes it was recommended open heart surgery for her but she wasn't sure for what reason, she denies history of cardiac cath 05/08/2018 Patient still dyspneic, and needs breathing treatments. Vitals look stable. Afebrile. She maintains good saturation on 2 L/m oxygen via NC, labs are reviewed showing. Increase in the WBC from 4.2 to 9.1 with neutrophils 91%. Creatinine 1.03. Blood Cultures are negative. Patient had 2 episodes of chest pain last night, H1 about 20 minutes and relieved by per, it was in the central chest radiating to the right shoulder, nonspecific in character. This morning patient is chest pain-free Blood pressure on the low side after restarting blood pressure medication. She is currently Off fluid due to her CHF possibility. Echo: Flexion fraction 55- 60% and mild LVH and fundraising sale representative following the patient 05/10/2018 Patient is still dyspneic breathing treatment. Vitas looks stable blood pressure on the low side. Patient is afebrile. Continue with oxygen therapy. She doesn't have chest anymore today. However she feels pressure on her chest she states like an elephant sitting on my chest. Sodium 138 potassium 3.5 creatinine 1.0 glucose 172. Patient continue on Solu-Medrol 40 mg IV every 8 hours area at Augmentin is been added today. Hold Lasix 05/11/2018 Patient dyspnea is improving at rest however she has difficulty finishing her symptoms still. Blood pressure is improving. Patient remains of bile and her IV antibiotics were changed to oral antibiotics per pulmonary recommendation. Patient to continue with oxygen therapy. No chest pain. She still feels some heaviness on her chest. Labs shows sodium 138 potassium 3.9, Betadine high at 31, creatinine 0.99, but GFR is at 58, suspicious for CTD stage III. Her sugars is well controlled 05/12/2018 Patient still dyspneic repeat chest x-ray shows pulmonary congestion pleural effusion she can more Lasix 40 mg IV 1. Vitas looks stable. No more IV fluid for CHF. BNP was removed from today was unremarkable with creatinine 1.0 on sodium 137. Sugar is fluctuation between 1:30 and 200 and she goes kristy albicans in her sputum Objective - Vital Signs Vital signs: Vital Signs Temp 97.8 F 05/12/18 05:38 Pulse 88 05/12/18 11:27 Resp 18 05/12/18 07:50 BP 112/76 05/12/18 05:38 Pulse Ox 95 05/12/18 05:38 Intake & Output 05/11/18 05/12/18 05/12/18 18:59 06:59 18:59 Weight 81 kg Other: Voiding Method Bedside Commode Bedside Commode Bedside Commode # Voids 3 2 - Exam -GENERAL: The patient is alert and oriented x3, patient is dyspneic and she cannot finish her sentences, she is in moderate respiratory distress. Well developed, well nourished. HEENT: Pupils are round and equally reacting to light. EOMI. No scleral icterus. No conjunctival pallor. Normocephalic, atraumatic. No pharyngeal erythema. No thyromegaly. CARDIOVASCULAR: S1 and S2 present. No murmurs, rubs, or gallops. -PULMONARY: Chest is clear to auscultation, no crackles. Patient has bilateral wheezing with prolonged expiratory phase and decrease air entry both sides, air movement is better than yesterday ABDOMEN: Soft, nontender, nondistended, normoactive bowel sounds. No palpable organomegaly. MUSCULOSKELETAL: No joint swelling or deformity. EXTREMITIES: No cyanosis, clubbing, or pedal edema. NEUROLOGICAL: Gross neurological examination did not reveal any focal deficits. SKIN: No rashes. - Labs CBC & Chem 7: 05/09/18 07:09 05/12/18 07:14 Labs: Abnormal Lab Results - Last 24 Hours (Table) 05/11/18 05/11/18 05/12/18 Range/Units 17:34 20:00 07:05 Chloride (98-107) mmol/L Carbon Dioxide (22-30) mmol/L BUN (7-17) mg/dL Glucose (74-99) mg/dL POC Glucose (mg/dL) 159 H 202 H 151 H (75-99) mg/dL 05/12/18 05/12/18 Range/Units 07:14 11:34 Chloride 94 L (98-107) mmol/L Carbon Dioxide 36 H (22-30) mmol/L BUN 33 H (7-17) mg/dL Glucose 162 H (74-99) mg/dL POC Glucose (mg/dL) 183 H (75-99) mg/dL Microbiology - Last 24 Hours (Table) 05/11/18 07:05 Gram Stain - Preliminary Sputum Sputum Culture - Preliminary Kristy albicans 05/06/18 11:30 Blood Culture - Preliminary Blood No Growth after 120 hours 05/06/18 11:40 Blood Culture - Preliminary Blood No Growth after 120 hours Assessment and Plan Assessment: -Chronic obstructive lung disease, an acute exacerbation -Left lower lobe pneumonia -History of CHF, pulmonary congestion on chest x-ray -2 episodes of chest pain, of unclear etiology -History of CVA/TIA -History of fibromyalgia -GERD -Hyperlipidemia -Hypertension -Osteoarthritis -Hypothyroidism -Chronic pain syndrome -Chronic thrombocytopenia Plan: Patient admitted for COPD exacerbation and pneumonia and she remains dyspneic. Patient will continue with the same breathing treatment, oxygen, and steroids. hold IV hydration and in view of possible chf. Pulmonary team consult is appreciated. Patient was already started on antibiotic Zosyn and Levaquin which are changed to Augmentin. DVT and GI prophylaxis. Follow-up culture results. Patient chest x-ray shows possible CHF. echo: Pending and call cardiology consult is appreciated. Patient is on Aggrenox. Patient was restarted on Lasix and Aldactone and Lipitor. Patient has 2 episodes of chest pain which is resolved now, discussed with the cardiology team. Further recommendation depends on patient's clinical course Physical therapy and occupational therapy evaluation: Home with family Prognosis is guarded given severity of her illness
--- NOTE | 2018-05-12 13:33 | P.PN ---
Subjective This is a pleasant 72 years old female with past medical history of coronary artery disease, heart failure, COPD, CVA/TIA, fibromyalgia, GERD, hyperlipidemia , hypertension, osteoarthritis, hypothyroidism, hallway today to see her award machine operator at the office and he sent her to the hospital as direct admission. No records in the paper chart. Patient was complaining of from progressive increasing dyspnea over the last 2 days associated with worsening cough and phlegm with grayish color associated with some chest tightness, no chest pain. No change in urine or bowel habits, no diarrhea. No fever. Patient has long history of COPD and chronic cough, she is oxygen dependent 2-3 L/m by nasal cannula, but she doesn't know if she uses prednisone at home On admission patient was short of breath she can finish her sentences because of her breathing difficulty 05/07/2018 Patient still dyspneic, and needs breathing treatments. Vitals look stable. She maintains good saturation on 2 L/m oxygen via NC, labs are reviewed showing WBC 7.3, sodium 139 creatinine 0.9S of the labs were unremarkable. Chest x-ray shows bilateral infiltrates and pleural effusion which correlates with mild CHF. Echo is ordered and pending. Also we going to check her troponin, we'll check EKG and she might benefit from electrical technician instructor evaluation. Resume her home medication. Patient was noticed to be an Aggrenox [dipyridamole/aspirin] . patient states she has previous heart disease and and sometimes it was recommended open heart surgery for her but she wasn't sure for what reason, she denies history of cardiac cath 05/08/2018 Patient still dyspneic, and needs breathing treatments. Vitals look stable. Afebrile. She maintains good saturation on 2 L/m oxygen via NC, labs are reviewed showing. Increase in the WBC from 4.2 to 9.1 with neutrophils 91%. Creatinine 1.03. Blood Cultures are negative. Patient had 2 episodes of chest pain last night, H1 about 20 minutes and relieved by per, it was in the central chest radiating to the right shoulder, nonspecific in character. This morning patient is chest pain-free Blood pressure on the low side after restarting blood pressure medication. She is currently Off fluid due to her CHF possibility. Echo: Flexion fraction 55- 60% and mild LVH and electrical technician instructor following the patient 05/10/2018 Patient is still dyspneic breathing treatment. Vitas looks stable blood pressure on the low side. Patient is afebrile. Continue with oxygen therapy. She doesn't have chest anymore today. However she feels pressure on her chest she states like an elephant sitting on my chest. Sodium 138 potassium 3.5 creatinine 1.0 glucose 172. Patient continue on Solu-Medrol 40 mg IV every 8 hours area at Augmentin is been added today. Hold Lasix 05/11/2018 Patient dyspnea is improving at rest however she has difficulty finishing her symptoms still. Blood pressure is improving. Patient remains of bile and her IV antibiotics were changed to oral antibiotics per pulmonary recommendation. Patient to continue with oxygen therapy. No chest pain. She still feels some heaviness on her chest. Labs shows sodium 138 potassium 3.9, Betadine high at 31, creatinine 0.99, but GFR is at 58, suspicious for CTD stage III. Her sugars is well controlled 05/12/2018 Patient still dyspneic repeat chest x-ray shows pulmonary congestion pleural effusion she can more Lasix 40 mg IV 1. Vitas looks stable. No more IV fluid for CHF. BNP was removed from today was unremarkable with creatinine 1.0 on sodium 137. Sugar is fluctuation between 130 and 200 and she goes kristy albicans in her sputum. Patient and is not improving, pulmonary team was trying to do bronchoscopy tomorrow as per patient which according to her toe was done before and was Informed CONSTITUTIONAL: No fever, no malaise, no fatigue. HEENT: No recent visual problems or hearing problems. Denied any sore throat. CARDIOVASCULAR: No orthopnea, PND, no palpitations, no syncope. PULMONARY: No shortness of breath, no cough, no hemoptysis. GASTROINTESTINAL: No diarrhea, no nausea, no vomiting, no abdominal pain. Normoactive bowel sounds. NEUROLOGICAL: No headaches, no weakness, no numbness. HEMATOLOGICAL: Denies any bleeding or petechiae. GENITOURINARY: Denies any burning micturition, frequency, or urgency. MUSCULOSKELETAL/RHEUMATOLOGICAL: Denies any joint pain, swelling, or any muscle pain. ENDOCRINE: Denies any polyuria or polydipsia. Objective - Vital Signs Vital signs: Vital Signs Temp 97.8 F 05/12/18 05:38 Pulse 88 05/12/18 11:27 Resp 18 05/12/18 07:50 BP 112/76 05/12/18 05:38 Pulse Ox 95 05/12/18 05:38 Intake & Output 05/11/18 05/12/18 05/12/18 18:59 06:59 18:59 Weight 81 kg Other: Voiding Method Bedside Commode Bedside Commode Bedside Commode # Voids 3 2 - Exam -GENERAL: The patient is alert and oriented x3, patient is dyspneic and she cannot finish her sentences, she is in moderate respiratory distress. Well developed, well nourished. HEENT: Pupils are round and equally reacting to light. EOMI. No scleral icterus. No conjunctival pallor. Normocephalic, atraumatic. No pharyngeal erythema. No thyromegaly. CARDIOVASCULAR: S1 and S2 present. No murmurs, rubs, or gallops. -PULMONARY: Chest is clear to auscultation, no crackles. Patient has bilateral wheezing with prolonged expiratory phase and decrease air entry both sides, air movement is better than yesterday ABDOMEN: Soft, nontender, nondistended, normoactive bowel sounds. No palpable organomegaly. MUSCULOSKELETAL: No joint swelling or deformity. EXTREMITIES: No cyanosis, clubbing, or pedal edema. NEUROLOGICAL: Gross neurological examination did not reveal any focal deficits. SKIN: No rashes. - Labs CBC & Chem 7: 05/09/18 07:09 05/12/18 07:14 Labs: Abnormal Lab Results - Last 24 Hours (Table) 05/11/18 05/11/18 05/12/18 Range/Units 17:34 20:00 07:05 Chloride (98-107) mmol/L Carbon Dioxide (22-30) mmol/L BUN (7-17) mg/dL Glucose (74-99) mg/dL POC Glucose (mg/dL) 159 H 202 H 151 H (75-99) mg/dL 05/12/18 05/12/18 Range/Units 07:14 11:34 Chloride 94 L (98-107) mmol/L Carbon Dioxide 36 H (22-30) mmol/L BUN 33 H (7-17) mg/dL Glucose 162 H (74-99) mg/dL POC Glucose (mg/dL) 183 H (75-99) mg/dL Microbiology - Last 24 Hours (Table) 05/11/18 07:05 Gram Stain - Preliminary Sputum Sputum Culture - Preliminary Kristy albicans 05/06/18 11:30 Blood Culture - Preliminary Blood No Growth after 120 hours 05/06/18 11:40 Blood Culture - Preliminary Blood No Growth after 120 hours Assessment and Plan Assessment: -Chronic obstructive lung disease, an acute exacerbation -Left lower lobe pneumonia -History of CHF, pulmonary congestion on chest x-ray -2 episodes of chest pain, of unclear etiology -History of CVA/TIA -History of fibromyalgia -GERD -Hyperlipidemia -Hypertension -Osteoarthritis -Hypothyroidism -Chronic pain syndrome -Chronic thrombocytopenia Plan: Patient admitted for COPD exacerbation and pneumonia and she remains dyspneic. Patient will continue with the same breathing treatment, oxygen, and steroids. hold IV hydration and in view of possible chf. Pulmonary team consult is appreciated. Patient was already started on antibiotic Zosyn and Levaquin which are changed to Augmentin. DVT and GI prophylaxis. Follow-up culture results. Patient chest x-ray shows possible CHF. echo: Pending and call cardiology consult is appreciated. Patient is on Aggrenox. Patient was restarted on Lasix and Aldactone and Lipitor. Patient has 2 episodes of chest pain which is resolved now, discussed with the cardiology team. Further recommendation depends on patient's clinical course Physical therapy and occupational therapy evaluation: Home with family Prognosis is guarded given severity of her illness
[2018-05-12] MEDS: FLUCONAZOLE 100 MG TAB PO SCH (14:38)
[2018-05-12 15:27] VITALS: BMI 30.6
[2018-05-12] MEDS: FUROSEMIDE 10 MG/ML 4 ML VIAL IV SCH (15:44)
[2018-05-12 17:33] LABS: Glucose,Whole Blood 143 mg/dL (75-99)
[2018-05-12 20:36] LABS: Glucose,Whole Blood 184 mg/dL (75-99)
[2018-05-12] MEDS: ATORVASTATIN 10 MG TAB PO SCH (21:53)
[2018-05-12] MEDS: TEMAZEPAM 15 MG CAP PO PRN (23:24)
[2018-05-13] MEDS: FUROSEMIDE 10 MG/ML 4 ML VIAL IV SCH ×4 (01:06→23:50)
[2018-05-13 07:12] LABS: Glucose,Whole Blood 172 mg/dL (75-99)
[2018-05-13] MEDS: IPRATROPIUM-ALBUTEROL 3 ML NEB INHALATION SCH ×4 (07:38→19:49)
[2018-05-13] MEDS: FORMOTEROL FUMARATE 20 MCG/2 ML NEBU INHALATION SCH ×2 (07:38→19:49)
[2018-05-13] MEDS: BUDESONIDE 1 MG/2 ML NEBU INHALATION SCH ×2 (07:38→19:49)
[2018-05-13] MEDS: methylPREDNISolone SOD SUCCI 40 MG/ML 1 ML VIAL IV SCH ×3 (08:25→23:50)
[2018-05-13 11:05] LABS: Glucose,Whole Blood 141 mg/dL (75-99)
[2018-05-13] MEDS ORDERED: SODIUM CHLORIDE 0.9% 1,000 ML IV ONE (11:54)
[2018-05-13] MEDS ORDERED: LACTATED RINGERS 1,000 ML IV ONE (11:54)
[2018-05-13] MEDS ORDERED: KETAMINE 10 MG/ML 20 ML VIAL ONE (11:55)
[2018-05-13] MEDS ORDERED: GLYCOPYRROLATE 0.2 MG/ML 2 ML VIAL ONE (11:55)
[2018-05-13] MEDS ORDERED: PROPOFOL 10 MG/ML 20 ML VIAL IV ONE (11:55)
[2018-05-13] MEDS ORDERED: fentaNYL (PF) 50 MCG/ML 2 ML AMP ONE (11:55)
[2018-05-13] MEDS ORDERED: MIDAZOLAM 2 MG/2 ML VIAL ONE (11:55)
--- NOTE | 2018-05-13 12:00 | PN ---
PROGRESS NOTE DATE OF SERVICE: 05/13/2018 On 05/13/2018, patient is seen again in followup on medical-surgical floor. Still complaining of shortness of breath, yesterday we started the patient on IV diuretics, Lasix 40 mg q.8 hours, and patient is in -300 mL net fluid balance over the last 24 hours. She is complaining of urinary frequency and sensation of incomplete emptying of her bladder. A bladder ultrasound was done last night, and only 50 mL of postvoid residual was found. Vital signs remained stable, patient is afebrile. On 2 L per nasal cannula, pulse ox is 95%. Patient remains on empiric antibiotics in the form of Augmentin, nebulized bronchodilators, Pulmicort, Perforomist for her acute COPD exacerbation. She still has occasional productive cough, but for the most part, it is nonproductive. The patient is scheduled for a bronchoscopy with BAL by Dr. Faustin this afternoon at 12 p.m. The patient has been n.p.o. since midnight. Continue current medical treatment. PHYSICAL EXAMINATION: Physical exam reveals a pleasant, overweight, 66-year-old white female, resting in bed, in no acute distress. HEENT: Scalp without lesions, normocephalic, atraumatic. PERRLA. Oral mucosa is moist. NECK: Supple, no neck masses, no JVD, no thyroid enlargement, no adenopathy. LUNGS: Symmetrical expansion bilaterally, diminished breath sounds at the bases. Fine crackles over the left posterior lower lobe, and end-expiratory wheezing. CARDIOVASCULAR: Regular rate and rhythm, normal S1 and S2. No gallops, no murmurs, no rubs. ABDOMEN: Soft, nontender, no organomegaly, no rebound tenderness, no guarding. Positive bowel sounds. EXTREMITIES: No clubbing, no edema, no cyanosis, 2+ pulses in upper and lower extremities. MUSCULOSKELETAL: Muscle strength and tone normal. NEUROLOGIC: Alert and oriented x3, no focal neurological deficits. ASSESSMENT: 1. Acute exacerbation of chronic obstructive pulmonary disease. 2. Dyspnea, chest congestion, due to the above. Chest x-ray showed pulmonary venous congestion and small bilateral pleural effusions, the patient has component of fluid overload, possibly related to underlying valvular heart disease, and is currently undergoing diuresis. PLAN: Continue with current medical treatment, continue IV diuretics, continue with current antibiotic coverage, nebulized bronchodilators, Pulmicort, Perforomist, continue steroids. The patient is scheduled for a bronchoscopy with BAL by Dr. Faustin today in the afternoon. MMODL / IJN: [id number] /
[2018-05-13] MEDS ORDERED: LIDOCAINE 1% INJ 10MG/ML (20 ML MDV) INTRATRACH ONE (12:17)
[2018-05-13] MEDS: INSULIN ASPART 100 UNIT/ML 1 ML 10 ML VIAL SQ SCH ×4 (14:08→21:09)
[2018-05-13] MEDS: LEVOTHYROXINE 112 MCG TAB PO SCH (14:08)
[2018-05-13] MEDS: FLUoxetine HCL 20 MG CAP PO SCH (14:11)
[2018-05-13] MEDS: FAMOTIDINE 20 MG TAB PO SCH (14:11)
[2018-05-13] MEDS: HEPARIN SODIUM,PORCINE 5,000 UNIT/ML 1 ML VIAL SQ SCH ×2 (14:11→21:03)
[2018-05-13] MEDS: FLUCONAZOLE 100 MG TAB PO SCH (14:12)
[2018-05-13] MEDS: MAGNESIUM OXIDE 400 MG TAB PO SCH (14:12)
[2018-05-13] MEDS: SPIRONOLACTONE 25 MG TAB PO SCH (14:13)
[2018-05-13] MEDS: PREGABALIN 75 MG CAP PO SCH ×3 (14:14→21:09)
--- NOTE | 2018-05-13 14:30 | PCN ---
PROCEDURE NOTE PROCEDURE PERFORMED: Bronchoscopy and bronchoalveolar lavage and washings of the purulent secretions. PREOPERATIVE DIAGNOSES: Persistent COPD exacerbation symptoms and persistent cough. POSTOPERATIVE DIAGNOSIS: Severe tracheobronchitis/purulent. ANESTHESIA USED: IV conscious sedation. DESCRIPTION OF PROCEDURE: The patient was prepared according the bronchoscopy protocol. O2 was applied via nasal cannula. The patient was placed in the supine position, we monitored her O2 saturation continuously, blood pressure was intermittently monitored, and cardiac rhythm was also monitored continuously. After adequate IV conscious sedation, the bronchoscope was inserted through the mouth through a bite block, and I was able to visualize the vocal cords easily. There was some yeastlike material, whitish secretions noted on the vocal cords, which were suctioned. Lidocaine was applied over the vocal cords, and the bronchoscope was advanced further down. Thorough examination was done of the trachea, nereyda, right upper lobe, right middle lobe, right lower lobe, left upper lobe lingula and left lower lobe. No evidence of any endobronchial tumors, however, there was clearly evidence of severe purulent secretions noted throughout the whole bronchial tree. These were suctioned and lavaged, especially in the right middle lobe and right lower lobe. Also, the same in the left lower lobe. The secretions were suctioned easily, sent for different diagnostic studies. The procedure was well tolerated, no evidence of any immediate complications. MMODL / IJN: [id number] /
[2018-05-13] MEDS: HYDROcodone/APAP 10-325MG 1 EACH TAB PO PRN (16:12)
[2018-05-13] MEDS: AMOXIC-POT CLAV 875-125MG 1 EACH TAB PO SCH (16:16)
[2018-05-13] MEDS: LEVOFLOXACIN 750 MG TAB PO SCH (16:17)
[2018-05-13 16:21] LABS: Appearance,BF Bloody; Color,BF Red
[2018-05-13 16:22] LABS: Nucleated Cells, Body Fluid 1100 /uL; RBC, Body Fluid 9100 /uL
[2018-05-13 16:25] LABS: Mononuclear WBC,Body Fluid 22 %; Polynuclear WBC,Body Fluid 78 %; Total Cells Counted,Body Fluid 100
[2018-05-13 17:34] LABS: Glucose,Whole Blood 114 mg/dL (75-99)
[2018-05-13] MEDS: ALPRAZolam 0.25 MG TAB PO PRN (17:57)
[2018-05-13] MEDS: ATORVASTATIN 10 MG TAB PO SCH (21:03)
[2018-05-13 21:05] LABS: Glucose,Whole Blood 198 mg/dL (75-99)
--- NOTE | 2018-05-13 21:28 | P.PN ---
Subjective This is a pleasant 72 years old female with past medical history of coronary artery disease, heart failure, COPD, CVA/TIA, fibromyalgia, GERD, hyperlipidemia , hypertension, osteoarthritis, hypothyroidism, hallway today to see her athletic monitor at the office and he sent her to the hospital as direct admission. No records in the paper chart. Patient was complaining of from progressive increasing dyspnea over the last 2 days associated with worsening cough and phlegm with grayish color associated with some chest tightness, no chest pain. No change in urine or bowel habits, no diarrhea. No fever. Patient has long history of COPD and chronic cough, she is oxygen dependent 2-3 L/m by nasal cannula, but she doesn't know if she uses prednisone at home On admission patient was short of breath she can finish her sentences because of her breathing difficulty 05/07/2018 Patient still dyspneic, and needs breathing treatments. Vitals look stable. She maintains good saturation on 2 L/m oxygen via NC, labs are reviewed showing WBC 7.3, sodium 139 creatinine 0.9S of the labs were unremarkable. Chest x-ray shows bilateral infiltrates and pleural effusion which correlates with mild CHF. Echo is ordered and pending. Also we going to check her troponin, we'll check EKG and she might benefit from software development test engineer evaluation. Resume her home medication. Patient was noticed to be an Aggrenox [dipyridamole/aspirin] . patient states she has previous heart disease and and sometimes it was recommended open heart surgery for her but she wasn't sure for what reason, she denies history of cardiac cath 05/08/2018 Patient still dyspneic, and needs breathing treatments. Vitals look stable. Afebrile. She maintains good saturation on 2 L/m oxygen via NC, labs are reviewed showing. Increase in the WBC from 4.2 to 9.1 with neutrophils 91%. Creatinine 1.03. Blood Cultures are negative. Patient had 2 episodes of chest pain last night, H1 about 20 minutes and relieved by per, it was in the central chest radiating to the right shoulder, nonspecific in character. This morning patient is chest pain-free Blood pressure on the low side after restarting blood pressure medication. She is currently Off fluid due to her CHF possibility. Echo: Flexion fraction 55- 60% and mild LVH and software development test engineer following the patient 05/10/2018 Patient is still dyspneic breathing treatment. Vitas looks stable blood pressure on the low side. Patient is afebrile. Continue with oxygen therapy. She doesn't have chest anymore today. However she feels pressure on her chest she states like an elephant sitting on my chest. Sodium 138 potassium 3.5 creatinine 1.0 glucose 172. Patient continue on Solu-Medrol 40 mg IV every 8 hours area at Augmentin is been added today. Hold Lasix 05/11/2018 Patient dyspnea is improving at rest however she has difficulty finishing her symptoms still. Blood pressure is improving. Patient remains of bile and her IV antibiotics were changed to oral antibiotics per pulmonary recommendation. Patient to continue with oxygen therapy. No chest pain. She still feels some heaviness on her chest. Labs shows sodium 138 potassium 3.9, Betadine high at 31, creatinine 0.99, but GFR is at 58, suspicious for CTD stage III. Her sugars is well controlled 05/12/2018 Patient still dyspneic repeat chest x-ray shows pulmonary congestion pleural effusion she can more Lasix 40 mg IV 1. Vitas looks stable. No more IV fluid for CHF. BNP was removed from today was unremarkable with creatinine 1.0 on sodium 137. Sugar is fluctuation between 130 and 200 and she goes kristy albicans in her sputum. Patient and is not improving, pulmonary team was trying to do bronchoscopy tomorrow as per patient which according to her toe was done before and was Informed 05/13/2018, patient dyspnea is significantly improved after pulmonary procedure. Her breathing is much quieter. Better air entry. And less wheezing . no cough and the patient feels improving. Objective - Vital Signs Vital signs: Vital Signs Temp 98.6 F 05/13/18 15:25 Pulse 86 05/13/18 20:13 Resp 14 05/13/18 15:25 BP 105/70 05/13/18 15:25 Pulse Ox 100 05/13/18 15:25 Intake & Output 05/13/18 05/13/18 05/14/18 06:59 18:59 06:59 Intake Total 150 540 Output Total 300 700 Balance -150 -160 Intake: IV 300 Oral 150 240 Output: Urine 300 700 Other: Voiding Method Bedside Commode Bedside Commode # Voids 2 - Exam -GENERAL: The patient is alert and oriented x3, patient is dyspneic and she cannot finish her sentences, she is in moderate respiratory distress. Well developed, well nourished. HEENT: Pupils are round and equally reacting to light. EOMI. No scleral icterus. No conjunctival pallor. Normocephalic, atraumatic. No pharyngeal erythema. No thyromegaly. CARDIOVASCULAR: S1 and S2 present. No murmurs, rubs, or gallops. -PULMONARY: Chest is clear to auscultation, no crackles. Patient has bilateral wheezing with prolonged expiratory phase and decrease air entry both sides, air movement is better than yesterday ABDOMEN: Soft, nontender, nondistended, normoactive bowel sounds. No palpable organomegaly. MUSCULOSKELETAL: No joint swelling or deformity. EXTREMITIES: No cyanosis, clubbing, or pedal edema. NEUROLOGICAL: Gross neurological examination did not reveal any focal deficits. SKIN: No rashes. - Labs CBC & Chem 7: 05/09/18 07:09 05/12/18 07:14 Labs: Abnormal Lab Results - Last 24 Hours (Table) 05/13/18 05/13/18 05/13/18 Range/Units 07:08 10:58 17:21 POC Glucose (mg/dL) 172 H 141 H 114 H (75-99) mg/dL 05/13/18 Range/Units 21:03 POC Glucose (mg/dL) 198 H (75-99) mg/dL Microbiology - Last 24 Hours (Table) 05/13/18 12:11 Acid Fast Bacilli Culture - Preliminary Bronchial Washings - Random 05/13/18 12:11 Bronchial Washings Culture - Preliminary Bronchial Washings - Random 05/13/18 12:11 Fungal Culture - Preliminary Bronchial Washings - Random 05/11/18 07:05 Gram Stain - Final Sputum Sputum Culture - Final Kristy albicans Assessment and Plan Assessment: -Chronic obstructive lung disease, an acute exacerbation -Left lower lobe pneumonia -History of CHF, pulmonary congestion on chest x-ray -2 episodes of chest pain, of unclear etiology -History of CVA/TIA -History of fibromyalgia -GERD -Hyperlipidemia -Hypertension -Osteoarthritis -Hypothyroidism -Chronic pain syndrome -Chronic thrombocytopenia Plan: Patient admitted for COPD exacerbation and pneumonia and she remains dyspneic. Patient will continue with the same breathing treatment, oxygen, and steroids. hold IV hydration and in view of possible chf. Pulmonary team consult is appreciated. Patient was already started on antibiotic Zosyn and Levaquin which are changed to Augmentin. DVT and GI prophylaxis. Follow-up culture results. Patient chest x-ray shows possible CHF. echo: Pending and call cardiology consult is appreciated. Patient is on Aggrenox. Patient was restarted on Lasix and Aldactone and Lipitor. Patient has 2 episodes of chest pain which is resolved now, discussed with the cardiology team. Further recommendation depends on patient's clinical course Physical therapy and occupational therapy evaluation: Home with family Prognosis is guarded given severity of her illness
[2018-05-14] MEDS: TEMAZEPAM 15 MG CAP PO PRN (00:15)
[2018-05-14] MEDS: LEVOTHYROXINE 112 MCG TAB PO SCH (06:02)
[2018-05-14] MEDS: diphenhydrAMINE 25 MG CAP PO PRN (06:02)
[2018-05-14 07:07] LABS: Glucose,Whole Blood 229 mg/dL (75-99)
[2018-05-14 07:34] LABS: Basophils % (A) 0 %; Eosinophils # (A) 0.1 k/uL (0-0.7); Eosinophils % (A) 1 %; HCT 47.4 % (34.0-46.0); HGB 15.3 gm/dL (11.4-16.0); Lymphocytes # (A) 0.3 k/uL (1.0-4.8); Lymphocytes % (A) 3 %; MCH 30.8 pg (25.0-35.0); MCHC 32.3 g/dL (31.0-37.0); MCV 95.3 fL (80.0-100.0); Mean Platelet Volume 10.4; Monocytes # (A) 0.3 k/uL (0-1.0); Monocytes % (A) 3 %; Neutrophils # (A) 8.8 k/uL (1.3-7.7); Neutrophils % (A) 93 %; RBC 4.98 m/uL (3.80-5.40); RDW 13.4 % (11.5-15.5); WBC 9.5 k/uL (3.8-10.6)
[2018-05-14] MEDS: PREGABALIN 75 MG CAP PO SCH ×3 (07:41→21:26)
[2018-05-14] MEDS: FLUoxetine HCL 20 MG CAP PO SCH (07:42)
[2018-05-14] MEDS: FLUCONAZOLE 100 MG TAB PO SCH (07:42)
[2018-05-14] MEDS: SPIRONOLACTONE 25 MG TAB PO SCH (07:42)
[2018-05-14] MEDS: FUROSEMIDE 10 MG/ML 4 ML VIAL IV SCH ×2 (07:42→16:54)
[2018-05-14] MEDS: FAMOTIDINE 20 MG TAB PO SCH (07:42)
[2018-05-14] MEDS: methylPREDNISolone SOD SUCCI 40 MG/ML 1 ML VIAL IV SCH ×2 (07:42→16:53)
[2018-05-14] MEDS: MAGNESIUM OXIDE 400 MG TAB PO SCH (07:42)
[2018-05-14] MEDS: INSULIN ASPART 100 UNIT/ML 1 ML 10 ML VIAL SQ SCH ×4 (07:44→20:44)
[2018-05-14 08:06] LABS: Calcium 8.3 mg/dL (8.4-10.2); Potassium 4.7 mmol/L (3.5-5.1)
[2018-05-14 08:13] LABS: Platelet Count 82 k/uL (150-450)
[2018-05-14] MEDS: FORMOTEROL FUMARATE 20 MCG/2 ML NEBU INHALATION SCH ×2 (08:32→20:37)
[2018-05-14] MEDS: BUDESONIDE 1 MG/2 ML NEBU INHALATION SCH ×2 (08:32→20:37)
[2018-05-14] MEDS: IPRATROPIUM-ALBUTEROL 3 ML NEB INHALATION SCH ×4 (08:32→20:37)
[2018-05-14] MEDS: HEPARIN SODIUM,PORCINE 5,000 UNIT/ML 1 ML VIAL SQ SCH ×2 (09:25→20:10)
[2018-05-14 10:59] LABS: Glucose,Whole Blood 139 mg/dL (75-99)
--- NOTE | 2018-05-14 11:49 | XR ---
EXAMINATION TYPE: XR chest 2V DATE OF EXAM: 05/14/2018 COMPARISON: Prior chest 05/12/2018 HISTORY: Follow-up, pneumonia, pleural effusion TECHNIQUE: Frontal and lateral views of the chest are obtained. FINDINGS: There is some improvement in aeration as compared to prior exam. No evident pneumothorax. Postop change noted to the right shoulder. Cardiac mediastinal silhouette, pulmonary vascularity and eulalio show similar appearance. Some minimal patchy basilar density persists. IMPRESSION: Some improvement in aeration.
[2018-05-14] MEDS: HYDROcodone/APAP 10-325MG 1 EACH TAB PO PRN ×2 (12:57→20:10)
--- NOTE | 2018-05-14 13:15 | P.PN ---
Subjective Progress Note Date: 05/13/18 Principal diagnosis: Acute COPD exacerbation with suspected left lower lobe pneumonia 72-year-old female patient with known history of COPD has been maintained on DuoNeb neb last treatment [id number] along with oxygen at 2 L/m nasal cannula, was seen in our office yesterday because of increased shortness of breath, increased dyspnea, chest tightness and wheezing. She had a congested cough. She was unable to bring up much sputum. No pleurisy or hemoptysis. She was seen in the office and the patient had a chest x-ray that showed evidence of pulmonary vessel congestion and suspected left lower lobe pulmonary infiltration/pneumonia. No evidence of any pneumothorax. Patient is afebrile. The patient's hemodynamically stable. The patient was hospitalized in the past for a similar complaint and her last hospitalization was in December 2017 and back then the patient a CAT scan of the chest that showed some limited groundglass/. Tree and bud pulmonate infiltrates for which the patient underwent a bronchoscopy and the bronchioloalveolar lavage showed no evidence of any microbial growth. This was done by Dr. Faustin. The patient since then was doing fine utilizing her DuoNeb nebulized treatments. She is not using any form of maintenance respiratory medications. The patient also is known to have multiple medical problems and comorbidities. 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 She also has chronic degenerative arthritis and she has undergone a right shoulder and the right knee replacement and previous history of cervical spine fusion. She has chronic back pain and restless leg syndrome. No significant leukocytosis. The rest of the blood work essentially within normal limits. Cardiac enzymes have been negative. The patient is seen again today 05/08/2018 in follow-up on the regular medical floor. She is currently sitting up in a chair at the bedside. She is awake and alert in no acute distress. She is maintaining good O2 saturations in the 90s on 3 L/m per nasal cannula. Blood cultures reveal no growth. White count 9.1. Hemoglobin 14.2. Creatinine 1.03. She remains on bronchodilators, IV Solu-Medrol, empiric antibiotics. She is on oral diuretics. Cardiology is following. The patient is seen again today 05/09/2018 in follow-up on the regular medical floor. She is currently resting quite comfortably in bed. She remains awake and alert in no acute distress. She is maintaining good O2 saturations in the 90s on 3 L/m per nasal cannula. She's currently afebrile. Hemodynamically stable. Blood cultures reveal no growth to date. White count 7.4. Hemoglobin 14.4. Creatinine 1.14. She remains on bronchodilators, Zosyn and Levaquin, diuretics. On 05/10/2018, patient is still short of breath. She is still being treated for an acute COPD exacerbation. Note that she has also history of valvular heart disease with mitral regurgitation. No fever or chills. Still bronchus spastic and wheezy. I have the patient on Solu Medrol 40 g every 8 hours and Augmentin was also added as an empiric antibiotic coverage. No chest pain. She gets labored breathing when she does some activity and she gets worked 7 she becomes more bronchus spastic and wheezy. Limited edema in lower extremities bilaterally. Lasix is currently on hold. She is on DuoNeb neb last treatment [id number], Pulmicort Respules, IV Solu Medrol 40 mg every 8 hours and the rest of the outpatient indications of been ordered resume. On 05/11/2018 patient seen in follow-up on medical surgical floor. She states she is improving, no fever, no chills. No chest discomfort. Lung sounds are positive for bibasilar crackles, patient does get dyspneic with any exertion. Has productive cough with clear sputum. Microbiology remains negative. Patient remains on empiric antibiotics in the form of Augmentin for the left lower lobe pneumonia. She is on nebulized bronchodilators, Pulmicort and Perforomist. Patient has some limited edema in her lower extremities bilaterally. A 6 remains on hold. Patient continues on her Aldactone. Today' s lab work has been reviewed, sodium is 138, potassium is 3.9, chloride is 93, CO2 36, B1 is 31, creatinine 0.99. On 05/12/2018 patient seen again on medical surgical floor. She states she is short of breath at rest, she is having some chest tightness, dyspnea, she feels like her lungs are filling up again with fluid. We gave her 1 dose of oral Lasix 20 mg in patient states she did not diurese significantly. Her oxygenation stable on 2 L per nasal cannula in the pulse ox is 95%, she remains afebrile, denies any fever or chills. On sounds are positive for bibasilar crackles, and a few scattered expiratory wheezes in the anterior upper lobes. Today's BMP was reviewed, sodium is 137, potassium is 4.1, chloride is 94, CO2 36, BUN is 33, creatinine is 1.0. Changes remain negative to date. Patient is being treated with oral Augmentin for her community-acquired left lower lobe pneumonia. We will obtain a follow-up chest x-ray today, we may have to give the patient another dose of IV Lasix, and monitor for her response. On 05/13/2018 patient seen again in follow-up. Patient reports limited improvement, still complains of shortness of breath, lung sounds are positive for coarse bilateral bases crackles, yesterday we increased patient's Lasix to 40 mg every 8 hours, patient is diuresing, and she is complaining of urinary frequency, and sensation of urinary retention, however bedside bladder ultrasound post void residuals was 50 mL. Patient remains afebrile, she remains on empiric antibiotics, microbiology remains negative. View of her ongoing shortness of breath, she will undergo bronchoscopy with BAL today by Dr. Ricketts Objective - Vital Signs Vital signs: Vital Signs Temp 97.9 F 05/14/18 05:55 Pulse 88 05/14/18 11:42 Resp 18 05/14/18 08:40 BP 130/60 05/14/18 05:55 Pulse Ox 94 L 05/14/18 05:55 Intake & Output 05/13/18 05/14/18 05/14/18 18:59 06:59 18:59 Intake Total 540 Output Total 700 Balance -160 Weight 79 kg Intake: IV 300 Oral 240 Output: Urine 700 Other: Voiding Method Bedside Commode Bedside Commode Bedside Commode # Voids 2 - Exam Gen. appearance the patient is calm comfortable and mild degree of respiratory distress, a bit anxious Head exam was generally normal. There was no scleral icterus or corneal arcus. Mucous membranes were moist. Neck was supple and without jugular venous distension, thyromegaly, or carotid bruits. Carotids were easily palpable bilaterally. There was no adenopathy. Lungs sounds are diminished bilaterally with bibasilar crackles, a few expiratory wheezes wheezes noted on today's exam, there is prolongation of the expiratory phase Cardiac exam revealed the PMI to be normally situated and sized. The rhythm was regular and no extrasystoles were noted during several minutes of auscultation. The first and second heart sounds were normal and physiologic splitting of the second heart sound was noted. There were no murmurs, rubs, clicks, or gallops. Abdominal exam revealed normal bowel sounds. The abdomen was soft, non-tender, and without masses, organomegaly, or appreciable enlargement of the abdominal aorta. Examination of the extremities revealed easily palpable radial, femoral and pedal pulses. There was no cyanosis, clubbing or edema. Muscular skeletal exam shows normal strength and tone. The patient has had a right shoulder replacement scars in place and the patient has also had a right knee replacement the scar is in place. No scoliosis. No deformities. Examination of the skin revealed no evidence of significant rashes, suspicious appearing nevi or other concerning lesions. Neurologically the patient has some right facial weakness otherwise motor function is equal and symmetrical in all 4 extremities and the patient is awake and alert 3. Psychiatric the patient has normal mood and affect and judgment and insight. - Labs CBC & Chem 7: 05/14/18 07:06 05/14/18 07:06 Labs: Abnormal Lab Results - Last 24 Hours (Table) 05/13/18 05/13/18 05/13/18 Range/Units 12:11 17:21 21:03 Hct (34.0-46.0) % Plt Count (150-450) k/uL Neutrophils # (1.3-7.7) k/uL Lymphocytes # (1.0-4.8) k/uL Sodium (137-145) mmol/L Chloride (98-107) mmol/L Carbon Dioxide (22-30) mmol/L BUN (7-17) mg/dL Glucose (74-99) mg/dL POC Glucose (mg/dL) 114 H 198 H (75-99) mg/dL Calcium (8.4-10.2) mg/dL Viral Test See Below H 05/14/18 05/14/18 05/14/18 Range/Units 07:04 07:06 07:06 Hct 47.4 H (34.0-46.0) % Plt Count 82 L (150-450) k/uL Neutrophils # 8.8 H (1.3-7.7) k/uL Lymphocytes # 0.3 L (1.0-4.8) k/uL Sodium 136 L (137-145) mmol/L Chloride 88 L (98-107) mmol/L Carbon Dioxide 36 H (22-30) mmol/L BUN 36 H (7-17) mg/dL Glucose 236 H (74-99) mg/dL POC Glucose (mg/dL) 229 H (75-99) mg/dL Calcium 8.3 L (8.4-10.2) mg/dL Viral Test 05/14/18 Range/Units 10:57 Hct (34.0-46.0) % Plt Count (150-450) k/uL Neutrophils # (1.3-7.7) k/uL Lymphocytes # (1.0-4.8) k/uL Sodium (137-145) mmol/L Chloride (98-107) mmol/L Carbon Dioxide (22-30) mmol/L BUN (7-17) mg/dL Glucose (74-99) mg/dL POC Glucose (mg/dL) 139 H (75-99) mg/dL Calcium (8.4-10.2) mg/dL Viral Test Microbiology - Last 24 Hours (Table) 05/13/18 12:11 Gram Stain - Preliminary Bronchial Washings - Random Bronchial Washings Culture - Preliminary 05/13/18 12:11 Acid Fast Bacilli Smear - Final Bronchial Washings - Random Acid Fast Bacilli Culture - Preliminary 05/13/18 12:11 Fungal Culture - Preliminary Bronchial Washings - Random 05/11/18 07:05 Gram Stain - Final Sputum Sputum Culture - Final Kristy albicans Assessment and Plan Plan: Assessment: 1 acute COPD exacerbation with left lower lobe pneumonia, community-acquired 2 valvular heart disease with moderate mitral stenosis and severe mitral regurgitation with a component of heart failure as evident on chest x-ray on admission. 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 Patient is awaiting to have her bronchoscopy with BAL today with Dr. Ricketts. I performed a history & physical examination of the patient and discussed their management with my nurse practitioner, Rhonda Go. I reviewed the nurse practitioner's note and agree with the documented findings and plan of care. Lung sounds are positive for bibasilar crackles, and prolongation of expiratory phase. No significant wheezing. The findings and the impression was discussed with the patient. I attest to the documentation by the nurse practitioner. Time with Patient: Less than 30
--- NOTE | 2018-05-14 13:19 | P.PN ---
Subjective Progress Note Date: 05/14/18 Principal diagnosis: Acute COPD exacerbation with suspected left lower lobe pneumonia 72-year-old female patient with known history of COPD has been maintained on DuoNeb neb last treatment [id number] along with oxygen at 2 L/m nasal cannula, was seen in our office yesterday because of increased shortness of breath, increased dyspnea, chest tightness and wheezing. She had a congested cough. She was unable to bring up much sputum. No pleurisy or hemoptysis. She was seen in the office and the patient had a chest x-ray that showed evidence of pulmonary vessel congestion and suspected left lower lobe pulmonary infiltration/pneumonia. No evidence of any pneumothorax. Patient is afebrile. The patient's hemodynamically stable. The patient was hospitalized in the past for a similar complaint and her last hospitalization was in December 2017 and back then the patient a CAT scan of the chest that showed some limited groundglass/. Tree and bud pulmonate infiltrates for which the patient underwent a bronchoscopy and the bronchioloalveolar lavage showed no evidence of any microbial growth. This was done by Dr. Faustin. The patient since then was doing fine utilizing her DuoNeb nebulized treatments. She is not using any form of maintenance respiratory medications. The patient also is known to have multiple medical problems and comorbidities. 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 She also has chronic degenerative arthritis and she has undergone a right shoulder and the right knee replacement and previous history of cervical spine fusion. She has chronic back pain and restless leg syndrome. No significant leukocytosis. The rest of the blood work essentially within normal limits. Cardiac enzymes have been negative. The patient is seen again today 05/08/2018 in follow-up on the regular medical floor. She is currently sitting up in a chair at the bedside. She is awake and alert in no acute distress. She is maintaining good O2 saturations in the 90s on 3 L/m per nasal cannula. Blood cultures reveal no growth. White count 9.1. Hemoglobin 14.2. Creatinine 1.03. She remains on bronchodilators, IV Solu-Medrol, empiric antibiotics. She is on oral diuretics. Cardiology is following. The patient is seen again today 05/09/2018 in follow-up on the regular medical floor. She is currently resting quite comfortably in bed. She remains awake and alert in no acute distress. She is maintaining good O2 saturations in the 90s on 3 L/m per nasal cannula. She's currently afebrile. Hemodynamically stable. Blood cultures reveal no growth to date. White count 7.4. Hemoglobin 14.4. Creatinine 1.14. She remains on bronchodilators, Zosyn and Levaquin, diuretics. On 05/10/2018, patient is still short of breath. She is still being treated for an acute COPD exacerbation. Note that she has also history of valvular heart disease with mitral regurgitation. No fever or chills. Still bronchus spastic and wheezy. I have the patient on Solu Medrol 40 g every 8 hours and Augmentin was also added as an empiric antibiotic coverage. No chest pain. She gets labored breathing when she does some activity and she gets worked 7 she becomes more bronchus spastic and wheezy. Limited edema in lower extremities bilaterally. Lasix is currently on hold. She is on DuoNeb neb last treatment [id number], Pulmicort Respules, IV Solu Medrol 40 mg every 8 hours and the rest of the outpatient indications of been ordered resume. On 05/11/2018 patient seen in follow-up on medical surgical floor. She states she is improving, no fever, no chills. No chest discomfort. Lung sounds are positive for bibasilar crackles, patient does get dyspneic with any exertion. Has productive cough with clear sputum. Microbiology remains negative. Patient remains on empiric antibiotics in the form of Augmentin for the left lower lobe pneumonia. She is on nebulized bronchodilators, Pulmicort and Perforomist. Patient has some limited edema in her lower extremities bilaterally. A 6 remains on hold. Patient continues on her Aldactone. Today' s lab work has been reviewed, sodium is 138, potassium is 3.9, chloride is 93, CO2 36, B1 is 31, creatinine 0.99. On 05/12/2018 patient seen again on medical surgical floor. She states she is short of breath at rest, she is having some chest tightness, dyspnea, she feels like her lungs are filling up again with fluid. We gave her 1 dose of oral Lasix 20 mg in patient states she did not diurese significantly. Her oxygenation stable on 2 L per nasal cannula in the pulse ox is 95%, she remains afebrile, denies any fever or chills. On sounds are positive for bibasilar crackles, and a few scattered expiratory wheezes in the anterior upper lobes. Today's BMP was reviewed, sodium is 137, potassium is 4.1, chloride is 94, CO2 36, BUN is 33, creatinine is 1.0. Changes remain negative to date. Patient is being treated with oral Augmentin for her community-acquired left lower lobe pneumonia. We will obtain a follow-up chest x-ray today, we may have to give the patient another dose of IV Lasix, and monitor for her response. On 05/13/2018 patient seen again in follow-up. Patient reports limited improvement, still complains of shortness of breath, lung sounds are positive for coarse bilateral bases crackles, yesterday we increased patient's Lasix to 40 mg every 8 hours, patient is diuresing, and she is complaining of urinary frequency, and sensation of urinary retention, however bedside bladder ultrasound post void residuals was 50 mL. Patient remains afebrile, she remains on empiric antibiotics, microbiology remains negative. View of her ongoing shortness of breath, she will undergo bronchoscopy with BAL today by Dr. Ricketts On 05/14/2018 patient seen again in follow-up. Yesterday she underwent bronchoscopy with BAL by Dr. Ricketts, and there was a large amount of retained secretions that were suctioned from her airways. Patient continues on IV diuretics, she is diuresing, and her weight is down 2 kg in the last 24 hours, she reports breathing easier, less congested, sounds reveal better air in entry bilaterally, with bibasilar crackles. Increase patient's activity as tolerated , patient remains afebrile, chest pain, no worsening dyspnea, she continues on 3 L per nasal cannula, pulse ox of 94%, bronchial wash cultures are pending, antibiotics have been switched to Levaquin yesterday. His chest x-ray has been reviewed by Dr. Ricketts, and showed improvement in aeration compared to prior exams. He shouldn't is stable, improving, and could be considered for discharge home today on oral course of antibiotics, and her maintenance dose of Lasix, and nebulized treatments and inhalers. Objective - Vital Signs Vital signs: Vital Signs Temp 97.9 F 05/14/18 05:55 Pulse 88 05/14/18 11:42 Resp 18 05/14/18 08:40 BP 130/60 05/14/18 05:55 Pulse Ox 94 L 05/14/18 05:55 Intake & Output 05/13/18 05/14/18 05/14/18 18:59 06:59 18:59 Intake Total 540 Output Total 700 Balance -160 Weight 79 kg Intake: IV 300 Oral 240 Output: Urine 700 Other: Voiding Method Bedside Commode Bedside Commode Bedside Commode # Voids 2 - Exam Gen. appearance the patient is calm comfortable and mild degree of respiratory distress, a bit anxious Head exam was generally normal. There was no scleral icterus or corneal arcus. Mucous membranes were moist. Neck was supple and without jugular venous distension, thyromegaly, or carotid bruits. Carotids were easily palpable bilaterally. There was no adenopathy. Lungs sounds are diminished bilaterally with bibasilar crackles, a few expiratory wheezes wheezes noted on today's exam, there is prolongation of the expiratory phase Cardiac exam revealed the PMI to be normally situated and sized. The rhythm was regular and no extrasystoles were noted during several minutes of auscultation. The first and second heart sounds were normal and physiologic splitting of the second heart sound was noted. There were no murmurs, rubs, clicks, or gallops. Abdominal exam revealed normal bowel sounds. The abdomen was soft, non-tender, and without masses, organomegaly, or appreciable enlargement of the abdominal aorta. Examination of the extremities revealed easily palpable radial, femoral and pedal pulses. There was no cyanosis, clubbing or edema. Muscular skeletal exam shows normal strength and tone. The patient has had a right shoulder replacement scars in place and the patient has also had a right knee replacement the scar is in place. No scoliosis. No deformities. Examination of the skin revealed no evidence of significant rashes, suspicious appearing nevi or other concerning lesions. Neurologically the patient has some right facial weakness otherwise motor function is equal and symmetrical in all 4 extremities and the patient is awake and alert 3. Psychiatric the patient has normal mood and affect and judgment and insight. - Labs CBC & Chem 7: 05/14/18 07:06 05/14/18 07:06 Labs: Abnormal Lab Results - Last 24 Hours (Table) 05/13/18 05/13/18 05/13/18 Range/Units 12:11 17:21 21:03 Hct (34.0-46.0) % Plt Count (150-450) k/uL Neutrophils # (1.3-7.7) k/uL Lymphocytes # (1.0-4.8) k/uL Sodium (137-145) mmol/L Chloride (98-107) mmol/L Carbon Dioxide (22-30) mmol/L BUN (7-17) mg/dL Glucose (74-99) mg/dL POC Glucose (mg/dL) 114 H 198 H (75-99) mg/dL Calcium (8.4-10.2) mg/dL Viral Test See Below H 05/14/18 05/14/18 05/14/18 Range/Units 07:04 07:06 07:06 Hct 47.4 H (34.0-46.0) % Plt Count 82 L (150-450) k/uL Neutrophils # 8.8 H (1.3-7.7) k/uL Lymphocytes # 0.3 L (1.0-4.8) k/uL Sodium 136 L (137-145) mmol/L Chloride 88 L (98-107) mmol/L Carbon Dioxide 36 H (22-30) mmol/L BUN 36 H (7-17) mg/dL Glucose 236 H (74-99) mg/dL POC Glucose (mg/dL) 229 H (75-99) mg/dL Calcium 8.3 L (8.4-10.2) mg/dL Viral Test 05/14/18 Range/Units 10:57 Hct (34.0-46.0) % Plt Count (150-450) k/uL Neutrophils # (1.3-7.7) k/uL Lymphocytes # (1.0-4.8) k/uL Sodium (137-145) mmol/L Chloride (98-107) mmol/L Carbon Dioxide (22-30) mmol/L BUN (7-17) mg/dL Glucose (74-99) mg/dL POC Glucose (mg/dL) 139 H (75-99) mg/dL Calcium (8.4-10.2) mg/dL Viral Test Microbiology - Last 24 Hours (Table) 05/13/18 12:11 Gram Stain - Preliminary Bronchial Washings - Random Bronchial Washings Culture - Preliminary 05/13/18 12:11 Acid Fast Bacilli Smear - Final Bronchial Washings - Random Acid Fast Bacilli Culture - Preliminary 05/13/18 12:11 Fungal Culture - Preliminary Bronchial Washings - Random 05/11/18 07:05 Gram Stain - Final Sputum Sputum Culture - Final Kristy albicans Assessment and Plan Plan: Assessment: 1 acute COPD exacerbation with left lower lobe pneumonia, community-acquired 2 valvular heart disease with moderate mitral stenosis and severe mitral regurgitation with a component of heart failure as evident on chest x-ray on admission. The patient is a preserved LV function with an ejection fraction of 60-65% 3 advanced oxygen-dependent COPD maintained on DuoNeb nebulized treatment around -the-clock 4 CVA with recurrent TIAs and the residual right facial weakness 5 hypertension 6 hyperlipidemia 7 hypothyroidism 8 coronary artery disease 9 fibromyalgia 10 chronic pain Plan Today's chest x-ray shows improving aeration, clinically patient remains stable , improving. Increase activity, no acute events overnight, yesterday we switched to patient's antibiotics to Levaquin, cultures remain negative thus far , bronchial wash cultures are pending. No fever, no chills, no chest wall tenderness, no worsening dyspnea. Patient could be considered for discharge home today, on 7 day course of Levaquin 750 mg, on her home dose of Lasix 40 mg once daily, and her maintenance inhalers and nebulized treatments, follow-up with Dr. Ricketts in the office in one week. I performed a history & physical examination of the patient and discussed their management with my nurse practitioner, Rhonda Go. I reviewed the nurse practitioner's note and agree with the documented findings and plan of care. Lung sounds are positive for bibasilar crackles, and prolongation of expiratory phase. No significant wheezing. The findings and the impression was discussed with the patient. I attest to the documentation by the nurse practitioner. Time with Patient: Less than 30
[2018-05-14 17:06] LABS: Glucose,Whole Blood 150 mg/dL (75-99)
[2018-05-14] MEDS ORDERED: PANTOPRAZOLE 40 MG TABLET PO SCH (17:30)
[2018-05-14] MEDS: predniSONE 50 MG TAB PO SCH (19:18)
[2018-05-14] MEDS: FUROSEMIDE 40 MG TAB PO SCH (19:18)
[2018-05-14] MEDS: ATORVASTATIN 10 MG TAB PO SCH (20:10)
[2018-05-14 20:23] LABS: Glucose,Whole Blood 120 mg/dL (75-99)
[2018-05-14] MEDS: PANTOPRAZOLE 40 MG TABLET PO SCH (21:26)
[2018-05-15] MEDS: TEMAZEPAM 15 MG CAP PO PRN ×2 (00:39→23:44)
[2018-05-15] MEDS: LEVOTHYROXINE 112 MCG TAB PO SCH (05:58)
[2018-05-15 07:08] LABS: Glucose,Whole Blood 194 mg/dL (75-99)
[2018-05-15] MEDS: IPRATROPIUM-ALBUTEROL 3 ML NEB INHALATION SCH ×5 (07:09→20:00)
[2018-05-15] MEDS: BUDESONIDE 1 MG/2 ML NEBU INHALATION SCH ×2 (07:09→19:59)
[2018-05-15] MEDS: FORMOTEROL FUMARATE 20 MCG/2 ML NEBU INHALATION SCH ×2 (07:09→19:59)
[2018-05-15] MEDS: HYDROcodone/APAP 10-325MG 1 EACH TAB PO PRN ×3 (07:38→21:42)
[2018-05-15] MEDS: INSULIN ASPART 100 UNIT/ML 1 ML 10 ML VIAL SQ SCH ×4 (07:45→21:41)
[2018-05-15] MEDS: FUROSEMIDE 40 MG TAB PO SCH ×2 (07:48→16:29)
[2018-05-15] MEDS: PANTOPRAZOLE 40 MG TABLET PO SCH ×2 (07:48→21:41)
[2018-05-15] MEDS: FLUoxetine HCL 20 MG CAP PO SCH (07:49)
[2018-05-15] MEDS: MAGNESIUM OXIDE 400 MG TAB PO SCH (07:49)
[2018-05-15] MEDS: FLUCONAZOLE 100 MG TAB PO SCH (07:49)
[2018-05-15] MEDS: predniSONE 50 MG TAB PO SCH (07:49)
[2018-05-15] MEDS: HEPARIN SODIUM,PORCINE 5,000 UNIT/ML 1 ML VIAL SQ SCH ×2 (07:49→21:41)
[2018-05-15] MEDS: SPIRONOLACTONE 25 MG TAB PO SCH (07:50)
[2018-05-15] MEDS: PREGABALIN 75 MG CAP PO SCH ×3 (07:56→21:41)
--- NOTE | 2018-05-15 08:22 | P.PN ---
Subjective This is a pleasant 72 years old female with past medical history of coronary artery disease, heart failure, COPD, CVA/TIA, fibromyalgia, GERD, hyperlipidemia , hypertension, osteoarthritis, hypothyroidism, hallway today to see her business development manager at the office and he sent her to the hospital as direct admission. No records in the paper chart. Patient was complaining of from progressive increasing dyspnea over the last 2 days associated with worsening cough and phlegm with grayish color associated with some chest tightness, no chest pain. No change in urine or bowel habits, no diarrhea. No fever. Patient has long history of COPD and chronic cough, she is oxygen dependent 2-3 L/m by nasal cannula, but she doesn't know if she uses prednisone at home On admission patient was short of breath she can finish her sentences because of her breathing difficulty 05/07/2018 Patient still dyspneic, and needs breathing treatments. Vitals look stable. She maintains good saturation on 2 L/m oxygen via NC, labs are reviewed showing WBC 7.3, sodium 139 creatinine 0.9S of the labs were unremarkable. Chest x-ray shows bilateral infiltrates and pleural effusion which correlates with mild CHF. Echo is ordered and pending. Also we going to check her troponin, we'll check EKG and she might benefit from polisher dial evaluation. Resume her home medication. Patient was noticed to be an Aggrenox [dipyridamole/aspirin] . patient states she has previous heart disease and and sometimes it was recommended open heart surgery for her but she wasn't sure for what reason, she denies history of cardiac cath 05/08/2018 Patient still dyspneic, and needs breathing treatments. Vitals look stable. Afebrile. She maintains good saturation on 2 L/m oxygen via NC, labs are reviewed showing. Increase in the WBC from 4.2 to 9.1 with neutrophils 91%. Creatinine 1.03. Blood Cultures are negative. Patient had 2 episodes of chest pain last night, H1 about 20 minutes and relieved by per, it was in the central chest radiating to the right shoulder, nonspecific in character. This morning patient is chest pain-free Blood pressure on the low side after restarting blood pressure medication. She is currently Off fluid due to her CHF possibility. Echo: Flexion fraction 55- 60% and mild LVH and polisher dial following the patient 05/10/2018 Patient is still dyspneic breathing treatment. Vitas looks stable blood pressure on the low side. Patient is afebrile. Continue with oxygen therapy. She doesn't have chest anymore today. However she feels pressure on her chest she states like an elephant sitting on my chest. Sodium 138 potassium 3.5 creatinine 1.0 glucose 172. Patient continue on Solu-Medrol 40 mg IV every 8 hours area at Augmentin is been added today. Hold Lasix 05/11/2018 Patient dyspnea is improving at rest however she has difficulty finishing her symptoms still. Blood pressure is improving. Patient remains of bile and her IV antibiotics were changed to oral antibiotics per pulmonary recommendation. Patient to continue with oxygen therapy. No chest pain. She still feels some heaviness on her chest. Labs shows sodium 138 potassium 3.9, Betadine high at 31, creatinine 0.99, but GFR is at 58, suspicious for CTD stage III. Her sugars is well controlled 05/12/2018 Patient still dyspneic repeat chest x-ray shows pulmonary congestion pleural effusion she can more Lasix 40 mg IV 1. Vitas looks stable. No more IV fluid for CHF. BNP was removed from today was unremarkable with creatinine 1.0 on sodium 137. Sugar is fluctuation between 130 and 200 and she goes kristy albicans in her sputum. Patient and is not improving, pulmonary team was trying to do bronchoscopy tomorrow as per patient which according to her toe was done before and was Informed 05/13/2018, patient dyspnea is significantly improved after pulmonary procedure. Her breathing is much quieter. Better air entry. And less wheezing . no cough and the patient feels improving. 6 11/24/2017 Patient still dyspneic although it's looks better. Chest still tight. Patient was a started on diuresis with Lasix 40 mg every 8 hours. Patient still on steroids and needing a breathing treatment. Patient might benefit from in house therapy for 1 or 2 more days Objective - Vital Signs Vital signs: Vital Signs Temp 97.9 F 05/14/18 05:55 Pulse 88 05/14/18 11:42 Resp 18 05/14/18 08:40 BP 130/60 05/14/18 05:55 Pulse Ox 94 L 05/14/18 05:55 Intake & Output 05/13/18 05/14/18 05/14/18 18:59 06:59 18:59 Intake Total 540 Output Total 700 Balance -160 Weight 79 kg Intake: IV 300 Oral 240 Output: Urine 700 Other: Voiding Method Bedside Commode Bedside Commode Bedside Commode # Voids 2 - Exam -GENERAL: The patient is alert and oriented x3, patient is dyspneic and she cannot finish her sentences, she is in moderate respiratory distress. Well developed, well nourished. HEENT: Pupils are round and equally reacting to light. EOMI. No scleral icterus. No conjunctival pallor. Normocephalic, atraumatic. No pharyngeal erythema. No thyromegaly. CARDIOVASCULAR: S1 and S2 present. No murmurs, rubs, or gallops. -PULMONARY: Chest is clear to auscultation, no crackles. Patient has bilateral wheezing with prolonged expiratory phase and decrease air entry both sides, air movement is improving ABDOMEN: Soft, nontender, nondistended, normoactive bowel sounds. No palpable organomegaly. MUSCULOSKELETAL: No joint swelling or deformity. EXTREMITIES: No cyanosis, clubbing, or pedal edema. NEUROLOGICAL: Gross neurological examination did not reveal any focal deficits. SKIN: No rashes. - Labs CBC & Chem 7: 05/14/18 07:06 05/14/18 07:06 Labs: Abnormal Lab Results - Last 24 Hours (Table) 05/13/18 05/13/18 05/13/18 Range/Units 12:11 17:21 21:03 Hct (34.0-46.0) % Plt Count (150-450) k/uL Neutrophils # (1.3-7.7) k/uL Lymphocytes # (1.0-4.8) k/uL Sodium (137-145) mmol/L Chloride (98-107) mmol/L Carbon Dioxide (22-30) mmol/L BUN (7-17) mg/dL Glucose (74-99) mg/dL POC Glucose (mg/dL) 114 H 198 H (75-99) mg/dL Calcium (8.4-10.2) mg/dL Viral Test See Below H 05/14/18 05/14/18 05/14/18 Range/Units 07:04 07:06 07:06 Hct 47.4 H (34.0-46.0) % Plt Count 82 L (150-450) k/uL Neutrophils # 8.8 H (1.3-7.7) k/uL Lymphocytes # 0.3 L (1.0-4.8) k/uL Sodium 136 L (137-145) mmol/L Chloride 88 L (98-107) mmol/L Carbon Dioxide 36 H (22-30) mmol/L BUN 36 H (7-17) mg/dL Glucose 236 H (74-99) mg/dL POC Glucose (mg/dL) 229 H (75-99) mg/dL Calcium 8.3 L (8.4-10.2) mg/dL Viral Test 05/14/18 Range/Units 10:57 Hct (34.0-46.0) % Plt Count (150-450) k/uL Neutrophils # (1.3-7.7) k/uL Lymphocytes # (1.0-4.8) k/uL Sodium (137-145) mmol/L Chloride (98-107) mmol/L Carbon Dioxide (22-30) mmol/L BUN (7-17) mg/dL Glucose (74-99) mg/dL POC Glucose (mg/dL) 139 H (75-99) mg/dL Calcium (8.4-10.2) mg/dL Viral Test Microbiology - Last 24 Hours (Table) 05/13/18 12:11 Gram Stain - Preliminary Bronchial Washings - Random Bronchial Washings Culture - Preliminary 05/13/18 12:11 Acid Fast Bacilli Smear - Final Bronchial Washings - Random Acid Fast Bacilli Culture - Preliminary 05/13/18 12:11 Fungal Culture - Preliminary Bronchial Washings - Random 05/11/18 07:05 Gram Stain - Final Sputum Sputum Culture - Final Kristy albicans Assessment and Plan Assessment: -Chronic obstructive lung disease, an acute exacerbation -Left lower lobe pneumonia -History of CHF, pulmonary congestion on chest x-ray -2 episodes of chest pain, of unclear etiology -History of CVA/TIA -History of fibromyalgia -GERD -Hyperlipidemia -Hypertension -Osteoarthritis -Hypothyroidism -Chronic pain syndrome -Chronic thrombocytopenia Plan: Patient admitted for COPD exacerbation and pneumonia and she remains dyspneic. Patient will continue with the same breathing treatment, oxygen, and steroids. hold IV hydration and in view of possible chf. Pulmonary team consult is appreciated. Patient was already started on antibiotic Zosyn and Levaquin which are changed to Augmentin. DVT and GI prophylaxis. Follow-up culture results. Patient chest x-ray shows possible CHF. echo: 55-60%, mild left ventricular hypertrophy cardiology consult is appreciated. Patient is on Aggrenox. Patient was restarted on Lasix and Aldactone and Lipitor. Patient has 2 episodes of chest pain which is resolved now, discussed with the cardiology team. Further recommendation depends on patient's clinical course Physical therapy and occupational therapy evaluation: Home with family Prognosis is guarded given severity of her illness
[2018-05-15] MEDS ORDERED: FUROSEMIDE 40 MG TAB PO SCH (09:00)
--- NOTE | 2018-05-15 10:55 | P.PN ---
Subjective Progress Note Date: 05/15/18 Principal diagnosis: Acute COPD exacerbation with suspected left lower lobe pneumonia 72-year-old female patient with known history of COPD has been maintained on DuoNeb neb last treatment [id number] along with oxygen at 2 L/m nasal cannula, was seen in our office yesterday because of increased shortness of breath, increased dyspnea, chest tightness and wheezing. She had a congested cough. She was unable to bring up much sputum. No pleurisy or hemoptysis. She was seen in the office and the patient had a chest x-ray that showed evidence of pulmonary vessel congestion and suspected left lower lobe pulmonary infiltration/pneumonia. No evidence of any pneumothorax. Patient is afebrile. The patient's hemodynamically stable. The patient was hospitalized in the past for a similar complaint and her last hospitalization was in December 2017 and back then the patient a CAT scan of the chest that showed some limited groundglass/. Tree and bud pulmonate infiltrates for which the patient underwent a bronchoscopy and the bronchioloalveolar lavage showed no evidence of any microbial growth. This was done by Dr. Faustin. The patient since then was doing fine utilizing her DuoNeb nebulized treatments. She is not using any form of maintenance respiratory medications. The patient also is known to have multiple medical problems and comorbidities. 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 She also has chronic degenerative arthritis and she has undergone a right shoulder and the right knee replacement and previous history of cervical spine fusion. She has chronic back pain and restless leg syndrome. No significant leukocytosis. The rest of the blood work essentially within normal limits. Cardiac enzymes have been negative. The patient is seen again today 05/08/2018 in follow-up on the regular medical floor. She is currently sitting up in a chair at the bedside. She is awake and alert in no acute distress. She is maintaining good O2 saturations in the 90s on 3 L/m per nasal cannula. Blood cultures reveal no growth. White count 9.1. Hemoglobin 14.2. Creatinine 1.03. She remains on bronchodilators, IV Solu-Medrol, empiric antibiotics. She is on oral diuretics. Cardiology is following. The patient is seen again today 05/09/2018 in follow-up on the regular medical floor. She is currently resting quite comfortably in bed. She remains awake and alert in no acute distress. She is maintaining good O2 saturations in the 90s on 3 L/m per nasal cannula. She's currently afebrile. Hemodynamically stable. Blood cultures reveal no growth to date. White count 7.4. Hemoglobin 14.4. Creatinine 1.14. She remains on bronchodilators, Zosyn and Levaquin, diuretics. On 05/10/2018, patient is still short of breath. She is still being treated for an acute COPD exacerbation. Note that she has also history of valvular heart disease with mitral regurgitation. No fever or chills. Still bronchus spastic and wheezy. I have the patient on Solu Medrol 40 g every 8 hours and Augmentin was also added as an empiric antibiotic coverage. No chest pain. She gets labored breathing when she does some activity and she gets worked 7 she becomes more bronchus spastic and wheezy. Limited edema in lower extremities bilaterally. Lasix is currently on hold. She is on DuoNeb neb last treatment [id number], Pulmicort Respules, IV Solu Medrol 40 mg every 8 hours and the rest of the outpatient indications of been ordered resume. On 05/11/2018 patient seen in follow-up on medical surgical floor. She states she is improving, no fever, no chills. No chest discomfort. Lung sounds are positive for bibasilar crackles, patient does get dyspneic with any exertion. Has productive cough with clear sputum. Microbiology remains negative. Patient remains on empiric antibiotics in the form of Augmentin for the left lower lobe pneumonia. She is on nebulized bronchodilators, Pulmicort and Perforomist. Patient has some limited edema in her lower extremities bilaterally. A 6 remains on hold. Patient continues on her Aldactone. Today' s lab work has been reviewed, sodium is 138, potassium is 3.9, chloride is 93, CO2 36, B1 is 31, creatinine 0.99. On 05/12/2018 patient seen again on medical surgical floor. She states she is short of breath at rest, she is having some chest tightness, dyspnea, she feels like her lungs are filling up again with fluid. We gave her 1 dose of oral Lasix 20 mg in patient states she did not diurese significantly. Her oxygenation stable on 2 L per nasal cannula in the pulse ox is 95%, she remains afebrile, denies any fever or chills. On sounds are positive for bibasilar crackles, and a few scattered expiratory wheezes in the anterior upper lobes. Today's BMP was reviewed, sodium is 137, potassium is 4.1, chloride is 94, CO2 36, BUN is 33, creatinine is 1.0. Changes remain negative to date. Patient is being treated with oral Augmentin for her community-acquired left lower lobe pneumonia. We will obtain a follow-up chest x-ray today, we may have to give the patient another dose of IV Lasix, and monitor for her response. On 05/13/2018 patient seen again in follow-up. Patient reports limited improvement, still complains of shortness of breath, lung sounds are positive for coarse bilateral bases crackles, yesterday we increased patient's Lasix to 40 mg every 8 hours, patient is diuresing, and she is complaining of urinary frequency, and sensation of urinary retention, however bedside bladder ultrasound post void residuals was 50 mL. Patient remains afebrile, she remains on empiric antibiotics, microbiology remains negative. View of her ongoing shortness of breath, she will undergo bronchoscopy with BAL today by Dr. Ricketts On 05/14/2018 patient seen again in follow-up. Yesterday she underwent bronchoscopy with BAL by Dr. Ricketts, and there was a large amount of retained secretions that were suctioned from her airways. Patient continues on IV diuretics, she is diuresing, and her weight is down 2 kg in the last 24 hours, she reports breathing easier, less congested, sounds reveal better air in entry bilaterally, with bibasilar crackles. Increase patient's activity as tolerated , patient remains afebrile, chest pain, no worsening dyspnea, she continues on 3 L per nasal cannula, pulse ox of 94%, bronchial wash cultures are pending, antibiotics have been switched to Levaquin yesterday. His chest x-ray has been reviewed by Dr. Ricketts, and showed improvement in aeration compared to prior exams. He shouldn't is stable, improving, and could be considered for discharge home today on oral course of antibiotics, and her maintenance dose of Lasix, and nebulized treatments and inhalers. On 05/15/2018 patient seen again in follow-up on medical surgical floor. She is awake alert, denies any acute distress, she has been ambulating with a walker in the room, but he has not done any extensive ambulation in the hallway , nevertheless she continues to improve. No worsening dyspnea, lung sounds are positive for minimal crackles at the left lower base. Sucks on 3 L per nasal cannula is 93%. Patient is afebrile, IV Lasix has been transitioned to oral, she has been treated and IV steroids, antibiotics, and breathing treatments. Bronchial wash preliminary Gram stain showed no organisms. Final culture is pending. No fever no chills. From pulmonary standpoint patient is stable for discharge home today. Objective - Vital Signs Vital signs: Vital Signs Temp 96.6 F L 05/15/18 05:00 Pulse 76 05/15/18 07:24 Resp 16 05/15/18 05:00 BP 105/60 05/15/18 05:00 Pulse Ox 97 05/15/18 05:00 Intake & Output 05/14/18 05/15/18 05/15/18 18:59 06:59 18:59 Intake Total 360 360 Output Total 800 Balance -440 360 Weight 80.5 kg Intake: Oral 360 360 Output: Urine 800 Other: Voiding Method Bedside Commode Bedside Commode Bedside Commode # Voids 2 3 - Exam Gen. appearance the patient is calm comfortable and mild degree of respiratory distress, a bit anxious Head exam was generally normal. There was no scleral icterus or corneal arcus. Mucous membranes were moist. Neck was supple and without jugular venous distension, thyromegaly, or carotid bruits. Carotids were easily palpable bilaterally. There was no adenopathy. Lungs sounds are diminished bilaterally with minimal left posterior base crackles, good air in entry noted bilaterally, no wheezes noted Cardiac exam revealed the PMI to be normally situated and sized. The rhythm was regular and no extrasystoles were noted during several minutes of auscultation. The first and second heart sounds were normal and physiologic splitting of the second heart sound was noted. There were no murmurs, rubs, clicks, or gallops. Abdominal exam revealed normal bowel sounds. The abdomen was soft, non-tender, and without masses, organomegaly, or appreciable enlargement of the abdominal aorta. Examination of the extremities revealed easily palpable radial, femoral and pedal pulses. There was no cyanosis, clubbing or edema. Muscular skeletal exam shows normal strength and tone. The patient has had a right shoulder replacement scars in place and the patient has also had a right knee replacement the scar is in place. No scoliosis. No deformities. Examination of the skin revealed no evidence of significant rashes, suspicious appearing nevi or other concerning lesions. Neurologically the patient has some right facial weakness otherwise motor function is equal and symmetrical in all 4 extremities and the patient is awake and alert 3. Psychiatric the patient has normal mood and affect and judgment and insight. - Labs CBC & Chem 7: 05/14/18 07:06 05/14/18 07:06 Labs: Abnormal Lab Results - Last 24 Hours (Table) 05/13/18 05/14/18 05/14/18 Range/Units 12:11 10:57 17:04 POC Glucose (mg/dL) 139 H 150 H (75-99) mg/dL Viral Test See Below H 05/14/18 05/15/18 Range/Units 20:22 07:07 POC Glucose (mg/dL) 120 H 194 H (75-99) mg/dL Viral Test Assessment and Plan Plan: Assessment: 1 acute COPD exacerbation with left lower lobe pneumonia, community-acquired 2 valvular heart disease with moderate mitral stenosis and severe mitral regurgitation with a component of heart failure as evident on chest x-ray on admission. 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 No fever or chills. From pulmonary standpoint patient is stable for discharge home today on outpatient course of Levaquin, her maintenance dose of Lasix, and her inhalers and nebulized treatments. Follow-up with Dr. Ricketts in one week. I performed a history & physical examination of the patient and discussed their management with my nurse practitioner, Rhonda Go. I reviewed the nurse practitioner's note and agree with the documented findings and plan of care. Lung sounds are positive for minimal crackles at the left posterior base. No significant wheezing. The findings and the impression was discussed with the patient. I attest to the documentation by the nurse practitioner. Time with Patient: Less than 30
[2018-05-15 12:07] LABS: Glucose,Whole Blood 185 mg/dL (75-99)
[2018-05-15] MEDS: LEVOFLOXACIN 750 MG TAB PO SCH (13:21)
--- NOTE | 2018-05-15 16:25 | CT ---
EXAMINATION TYPE: CT brain wo con DATE OF EXAM: 05/15/2018 COMPARISON: 12/31/2017 HISTORY: 72-year-old female possible TIA symptoms, weakness, change in speech TECHNIQUE: Examination was done in axial plane without intravenous contrast. Coronal and sagittal r econstructions performed. CT DLP: 1121 mGycm Automated exposure control for dose reduction was used. FINDINGS: There is no evidence of acute intracranial hemorrhage, acute ischemic changes, mass, mass-effect, or extra-axial fluid collection. There is no effacement of cerebral sulci or basal subarachnoid cister ns. There is no hydrocephalus. There is no midline shift. Burleson-white matter distinction is preserv ed. Mild to moderate bifrontal atrophy is unchanged. Paranasal sinuses and mastoid air cells are well pneumatized. Stable trace fluid in the inferior left mastoid air cells. Orbits and globes are intact. IMPRESSION: Stable mild to moderate bifrontal atrophy. No acute intracranial abnormality seen.
[2018-05-15 17:11] LABS: Glucose,Whole Blood 127 mg/dL (75-99)
--- NOTE | 2018-05-15 18:01 | P.PN ---
Subjective Progress Note Date: 05/15/18 72 years old female with past medical history of coronary artery disease, heart failure, COPD, CVA/TIA, fibromyalgia, GERD, hyperlipidemia, hypertension, osteoarthritis, hypothyroidism, hallway today to see her supervisor safety deposit at the office and he sent her to the hospital as direct admission. No records in the paper chart. Patient was complaining of from progressive increasing dyspnea over the last 2 days associated with worsening cough and phlegm with grayish color associated with some chest tightness, no chest pain. No change in urine or bowel habits, no diarrhea. No fever. Patient has long history of COPD and chronic cough, she is oxygen dependent 2-3 L/m by nasal cannula, but she doesn' t know if she uses prednisone at home On admission patient was short of breath she can finish her sentences because of her breathing difficulty Objective - Vital Signs Vital signs: Vital Signs Temp 97.9 F 05/15/18 15:18 Pulse 94 05/15/18 15:18 Resp 16 05/15/18 15:18 BP 123/75 05/15/18 15:18 Pulse Ox 95 05/15/18 15:18 Intake & Output 05/14/18 05/15/18 05/15/18 18:59 06:59 18:59 Intake Total 360 360 Output Total 800 Balance -440 360 Weight 80.5 kg Intake: Oral 360 360 Output: Urine 800 Other: Voiding Method Bedside Commode Bedside Commode Bedside Commode # Voids 2 3 3 - Exam - Constitutional General appearance: Present: average body habitus, cooperative, no acute distress - EENT Eyes: Present: anicteric sclerae, EOMI, PERRLA, normal appearance ENT: Present: hearing grossly normal, normal oropharynx Ears: bilateral: normal - Neck Neck: Present: normal ROM. Absent: lymphadenopathy, rigidity, thyromegaly Carotids: negative: bruit present Thyroid: bilateral: normal size, negative: enlarged, nodule - Respiratory Respiratory: bilateral: CTA, negative: rales, rhonchi, wheezing - Cardiovascular Rhythm: regular Heart sounds: normal: S1, S2 Abnormal Heart Sounds: Absent: systolic murmur, diastolic murmur - Gastrointestinal General gastrointestinal: Present: normal bowel sounds, soft. Absent: distended , organomegaly, tenderness - Genitourinary Genitourinary Comment(s): deferred - Integumentary Integumentary: Present: normal turgor. Absent: jaundiced, rash, ulcer - Neurologic Neurologic: Present: CNII-XII intact. Absent: focal deficits - Musculoskeletal Musculoskeletal: Present: gait normal, strength equal bilaterally - Psychiatric Psychiatric: Present: A&O x's 3, appropriate affect, intact judgment & insight - Labs CBC & Chem 7: 05/14/18 07:06 05/14/18 07:06 Labs: Abnormal Lab Results - Last 24 Hours (Table) 05/14/18 05/14/18 05/15/18 Range/Units 17:04 20:22 07:07 POC Glucose (mg/dL) 150 H 120 H 194 H (75-99) mg/dL 05/15/18 Range/Units 12:04 POC Glucose (mg/dL) 185 H (75-99) mg/dL Microbiology - Last 24 Hours (Table) 05/13/18 12:11 Gram Stain - Preliminary Bronchial Washings - Random Bronchial Washings Culture - Preliminary Kristy albicans Gram Neg Bacilli Yeast species Assessment and Plan Assessment: 1. Chronic obstructive lung disease, an acute exacerbation 2. Left lower lobe pneumonia 3. History of CHF, pulmonary congestion on chest x-ray 4. 2 episodes of chest pain, of unclear etiology 5. History of CVA/TIA 6. History of fibromyalgia 7. GERD 8. Hyperlipidemia 9. Hypertension 10. Osteoarthritis 11. Hypothyroidism 12. Chronic pain syndrome 13 Chronic thrombocytopenia Plan: Patient admitted for COPD exacerbation and pneumonia and she remains dyspneic. Patient will continue with the same breathing treatment, oxygen, and steroids. hold IV hydration and in view of possible chf. Pulmonary team consult is appreciated. Patient was already started on antibiotic Zosyn and Levaquin which are changed to Augmentin. DVT and GI prophylaxis. Follow-up culture results. Patient chest x-ray shows possible CHF. echo: 55-60%, mild left ventricular hypertrophy cardiology consult is appreciated. Patient is on Aggrenox. Patient was restarted on Lasix and Aldactone and Lipitor. Patient has 2 episodes of chest pain which is resolved now, discussed with the cardiology team. Further recommendation depends on patient's clinical course Physical therapy and occupational therapy evaluation: Home with family Prognosis is guarded given severity of her illness Time with Patient: Greater than 30
[2018-05-15 20:51] LABS: Glucose,Whole Blood 142 mg/dL (75-99)
[2018-05-15] MEDS: ATORVASTATIN 10 MG TAB PO SCH (21:41)
[2018-05-16] MEDS: diphenhydrAMINE 25 MG CAP PO PRN ×2 (01:47→09:09)
[2018-05-16] MEDS: LEVOTHYROXINE 112 MCG TAB PO SCH (05:34)
[2018-05-16 07:07] LABS: Glucose,Whole Blood 383 mg/dL (75-99)
[2018-05-16] MEDS: FORMOTEROL FUMARATE 20 MCG/2 ML NEBU INHALATION SCH ×2 (07:22→19:07)
[2018-05-16] MEDS: BUDESONIDE 1 MG/2 ML NEBU INHALATION SCH ×2 (07:22→19:07)
[2018-05-16] MEDS: IPRATROPIUM-ALBUTEROL 3 ML NEB INHALATION SCH ×4 (07:22→19:07)
[2018-05-16] MEDS: HYDROcodone/APAP 10-325MG 1 EACH TAB PO PRN ×2 (07:33→21:50)
[2018-05-16] MEDS: PANTOPRAZOLE 40 MG TABLET PO SCH ×2 (07:34→20:45)
[2018-05-16] MEDS: SPIRONOLACTONE 25 MG TAB PO SCH (07:34)
[2018-05-16] MEDS: HEPARIN SODIUM,PORCINE 5,000 UNIT/ML 1 ML VIAL SQ SCH ×2 (07:35→20:44)
[2018-05-16] MEDS: predniSONE 50 MG TAB PO SCH (07:35)
[2018-05-16] MEDS: FLUoxetine HCL 20 MG CAP PO SCH (07:35)
[2018-05-16] MEDS: FUROSEMIDE 40 MG TAB PO SCH ×2 (07:35→15:33)
[2018-05-16] MEDS: MAGNESIUM OXIDE 400 MG TAB PO SCH (07:35)
[2018-05-16] MEDS: INSULIN ASPART 100 UNIT/ML 1 ML 10 ML VIAL SQ SCH ×4 (07:36→20:44)
[2018-05-16] MEDS: PREGABALIN 75 MG CAP PO SCH ×3 (07:52→21:50)
--- NOTE | 2018-05-16 11:02 | P.PN ---
Subjective Progress Note Date: 05/16/18 Principal diagnosis: Acute on chronic hypoxic respiratory failure secondary to mild exacerbation of diastolic congestive heart failure. 72-year-old female patient with known history of COPD has been maintained on DuoNeb neb last treatment [id number] along with oxygen at 2 L/m nasal cannula, was seen in our office yesterday because of increased shortness of breath, increased dyspnea, chest tightness and wheezing. She had a congested cough. She was unable to bring up much sputum. No pleurisy or hemoptysis. She was seen in the office and the patient had a chest x-ray that showed evidence of pulmonary vessel congestion and suspected left lower lobe pulmonary infiltration/pneumonia. No evidence of any pneumothorax. Patient is afebrile. The patient's hemodynamically stable. The patient was hospitalized in the past for a similar complaint and her last hospitalization was in December 2017 and back then the patient a CAT scan of the chest that showed some limited groundglass/. Tree and bud pulmonate infiltrates for which the patient underwent a bronchoscopy and the bronchioloalveolar lavage showed no evidence of any microbial growth. This was done by Dr. Faustin. The patient since then was doing fine utilizing her DuoNeb nebulized treatments. She is not using any form of maintenance respiratory medications. The patient also is known to have multiple medical problems and comorbidities. 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 She also has chronic degenerative arthritis and she has undergone a right shoulder and the right knee replacement and previous history of cervical spine fusion. She has chronic back pain and restless leg syndrome. No significant leukocytosis. The rest of the blood work essentially within normal limits. Cardiac enzymes have been negative. The patient is seen again today 05/08/2018 in follow-up on the regular medical floor. She is currently sitting up in a chair at the bedside. She is awake and alert in no acute distress. She is maintaining good O2 saturations in the 90s on 3 L/m per nasal cannula. Blood cultures reveal no growth. White count 9.1. Hemoglobin 14.2. Creatinine 1.03. She remains on bronchodilators, IV Solu-Medrol, empiric antibiotics. She is on oral diuretics. Cardiology is following. The patient is seen again today 05/09/2018 in follow-up on the regular medical floor. She is currently resting quite comfortably in bed. She remains awake and alert in no acute distress. She is maintaining good O2 saturations in the 90s on 3 L/m per nasal cannula. She's currently afebrile. Hemodynamically stable. Blood cultures reveal no growth to date. White count 7.4. Hemoglobin 14.4. Creatinine 1.14. She remains on bronchodilators, Zosyn and Levaquin, diuretics. On 05/10/2018, patient is still short of breath. She is still being treated for an acute COPD exacerbation. Note that she has also history of valvular heart disease with mitral regurgitation. No fever or chills. Still bronchus spastic and wheezy. I have the patient on Solu Medrol 40 g every 8 hours and Augmentin was also added as an empiric antibiotic coverage. No chest pain. She gets labored breathing when she does some activity and she gets worked 7 she becomes more bronchus spastic and wheezy. Limited edema in lower extremities bilaterally. Lasix is currently on hold. She is on DuoNeb neb last treatment [id number], Pulmicort Respules, IV Solu Medrol 40 mg every 8 hours and the rest of the outpatient indications of been ordered resume. On 05/11/2018 patient seen in follow-up on medical surgical floor. She states she is improving, no fever, no chills. No chest discomfort. Lung sounds are positive for bibasilar crackles, patient does get dyspneic with any exertion. Has productive cough with clear sputum. Microbiology remains negative. Patient remains on empiric antibiotics in the form of Augmentin for the left lower lobe pneumonia. She is on nebulized bronchodilators, Pulmicort and Perforomist. Patient has some limited edema in her lower extremities bilaterally. A 6 remains on hold. Patient continues on her Aldactone. Today' s lab work has been reviewed, sodium is 138, potassium is 3.9, chloride is 93, CO2 36, B1 is 31, creatinine 0.99. On 05/12/2018 patient seen again on medical surgical floor. She states she is short of breath at rest, she is having some chest tightness, dyspnea, she feels like her lungs are filling up again with fluid. We gave her 1 dose of oral Lasix 20 mg in patient states she did not diurese significantly. Her oxygenation stable on 2 L per nasal cannula in the pulse ox is 95%, she remains afebrile, denies any fever or chills. On sounds are positive for bibasilar crackles, and a few scattered expiratory wheezes in the anterior upper lobes. Today's BMP was reviewed, sodium is 137, potassium is 4.1, chloride is 94, CO2 36, BUN is 33, creatinine is 1.0. Changes remain negative to date. Patient is being treated with oral Augmentin for her community-acquired left lower lobe pneumonia. We will obtain a follow-up chest x-ray today, we may have to give the patient another dose of IV Lasix, and monitor for her response. On 05/13/2018 patient seen again in follow-up. Patient reports limited improvement, still complains of shortness of breath, lung sounds are positive for coarse bilateral bases crackles, yesterday we increased patient's Lasix to 40 mg every 8 hours, patient is diuresing, and she is complaining of urinary frequency, and sensation of urinary retention, however bedside bladder ultrasound post void residuals was 50 mL. Patient remains afebrile, she remains on empiric antibiotics, microbiology remains negative. View of her ongoing shortness of breath, she will undergo bronchoscopy with BAL today by Dr. Ricketts On 05/14/2018 patient seen again in follow-up. Yesterday she underwent bronchoscopy with BAL by Dr. Ricketts, and there was a large amount of retained secretions that were suctioned from her airways. Patient continues on IV diuretics, she is diuresing, and her weight is down 2 kg in the last 24 hours, she reports breathing easier, less congested, sounds reveal better air in entry bilaterally, with bibasilar crackles. Increase patient's activity as tolerated , patient remains afebrile, chest pain, no worsening dyspnea, she continues on 3 L per nasal cannula, pulse ox of 94%, bronchial wash cultures are pending, antibiotics have been switched to Levaquin yesterday. His chest x-ray has been reviewed by Dr. Ricketts, and showed improvement in aeration compared to prior exams. He shouldn't is stable, improving, and could be considered for discharge home today on oral course of antibiotics, and her maintenance dose of Lasix, and nebulized treatments and inhalers. On 05/15/2018 patient seen again in follow-up on medical surgical floor. She is awake alert, denies any acute distress, she has been ambulating with a walker in the room, but he has not done any extensive ambulation in the hallway , nevertheless she continues to improve. No worsening dyspnea, lung sounds are positive for minimal crackles at the left lower base. Sucks on 3 L per nasal cannula is 93%. Patient is afebrile, IV Lasix has been transitioned to oral, she has been treated and IV steroids, antibiotics, and breathing treatments. Bronchial wash preliminary Gram stain showed no organisms. Final culture is pending. No fever no chills. From pulmonary standpoint patient is stable for discharge home today. The patient is seen again today 05/16/2018 in follow-up on the regular medical floor. She is currently sitting up in a chair at the bedside. She is awake and alert in no acute distress. She denies any worsening shortness of breath, cough or congestion. No chills or night sweats. Bronchial wash findings were positive for Klebsiella pneumoniae and she is currently on Levaquin and will continue with her breathing treatments. Objective - Vital Signs Vital signs: Vital Signs Temp 97.4 F L 05/15/18 23:00 Pulse 68 05/16/18 07:52 Resp 18 05/16/18 06:06 BP 109/69 05/16/18 06:06 Pulse Ox 94 L 05/16/18 06:06 Intake & Output 05/15/18 05/16/18 05/16/18 18:59 06:59 18:59 Intake Total 240 Balance 240 Weight 80 kg Intake: Oral 240 Other: Voiding Method Bedside Commode Bedside Commode # Voids 3 3 - Exam Gen. appearance the patient is calm comfortable and mild degree of respiratory distress, a bit anxious Head exam was generally normal. There was no scleral icterus or corneal arcus. Mucous membranes were moist. Neck was supple and without jugular venous distension, thyromegaly, or carotid bruits. Carotids were easily palpable bilaterally. There was no adenopathy. Lungs sounds are diminished bilaterally Cardiac exam revealed the PMI to be normally situated and sized. The rhythm was regular and no extrasystoles were noted during several minutes of auscultation. The first and second heart sounds were normal and physiologic splitting of the second heart sound was noted. There were no murmurs, rubs, clicks, or gallops. Abdominal exam revealed normal bowel sounds. The abdomen was soft, non-tender, and without masses, organomegaly, or appreciable enlargement of the abdominal aorta. Examination of the extremities revealed easily palpable radial, femoral and pedal pulses. There was no cyanosis, clubbing or edema. Muscular skeletal exam shows normal strength and tone. The patient has had a right shoulder replacement scars in place and the patient has also had a right knee replacement the scar is in place. No scoliosis. No deformities. Examination of the skin revealed no evidence of significant rashes, suspicious appearing nevi or other concerning lesions. Neurologically the patient has some right facial weakness otherwise motor function is equal and symmetrical in all 4 extremities and the patient is awake and alert 3. Psychiatric the patient has normal mood and affect and judgment and insight. - Labs CBC & Chem 7: 05/14/18 07:06 05/14/18 07:06 Labs: Abnormal Lab Results - Last 24 Hours (Table) 05/15/18 05/15/18 05/15/18 Range/Units 12:04 17:09 20:49 POC Glucose (mg/dL) 185 H 127 H 142 H (75-99) mg/dL 05/16/18 Range/Units 07:05 POC Glucose (mg/dL) 383 H (75-99) mg/dL Microbiology - Last 24 Hours (Table) 05/13/18 12:11 Gram Stain - Preliminary Bronchial Washings - Random Bronchial Washings Culture - Preliminary Kristy albicans Klebsiella pneumoniae Yeast species Assessment and Plan Assessment: Assessment 1 acute on chronic hypoxic respiratory failure secondary to an acute exacerbation of chronic obstructive pulmonary disease, complicated by Klebsiella pneumoniae in her bronchial wash. 2 acute exacerbation of chronic diastolic congestive heart failure secondary to valvular heart disease with moderate mitral stenosis and severe mitral regurgitation. 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 Faustin. She is cleared for discharge from the pulmonary standpoint. Complete her course of antibiotics. Complete prednisone taper. Follow-up in our office in 1-2 weeks' time. I, the cosigning physician, performed a history & physical examination of the patient. Lungs sounds faint crackles in the posterior bases. Maintaining good O2 saturations in the 90s on 3 L/m per nasal cannula. I discussed the assessment and plan of care with my nurse practitioner, Mary Cobos. I attest to the above note as dictated by her.
[2018-05-16 11:55] LABS: Glucose,Whole Blood 131 mg/dL (75-99)
[2018-05-16] MEDS ORDERED: ONDANSETRON 4 MG TAB PO PRN (15:10)
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
[2018-05-16 16:48] VITALS: RESP 16
[2018-05-16 17:36] LABS: Glucose,Whole Blood 213 mg/dL (75-99)
--- NOTE | 2018-05-16 18:17 | PN ---
PROGRESS NOTE DATE OF SERVICE: 05/16/2018 PRESENTING COMPLAINT: Short of breath. INTERVAL HISTORY: Patient admitted with COPD exacerbation, status post bronchoscopy with bronchial washing showing Klebsiella pneumoniae. The patient is overall feeling better. Had an episode last night where she was shaking a bit and the nurse had to wake her up. Maybe she was mumbling. Because of concern for seizure, Neurology was consulted. Overall, patient feels better. REVIEW OF SYSTEMS: Done for constitutional, cardiovascular, GI, pulmonary; relevant findings as above. CURRENT MEDICATIONS: Reviewed that include: 1. DuoNeb. 2. Fentanyl patch. 3. P.o. Lasix. 4. P.o. Levaquin. 5. Prednisone 50 mg. EXAMINATION: Afebrile, pulse 96, respirations 16, blood pressure 105/72, pulse ox 93% on room air. GENERAL APPEARANCE: Sitting on bed, comfortable. EYES: Pupils equal. Conjunctivae normal. HEENT: External nose and ears normal. Oral cavity normal. NECK: JVD not raised. Mass not palpable. RESPIRATORY: Effort normal. LUNGS: Decreased breath sounds. CARDIOVASCULAR: First and second sounds normal. No edema. ABDOMEN: Soft, nontender. Liver and spleen not palpable. No mass palpable. PSYCHIATRY: Alert and oriented x3. Mood and affect were normal. INVESTIGATIONS: Accu-Cheks 383, 131, 213. ASSESSMENT: 1. Acute on chronic congestive heart failure exacerbation from diastolic dysfunction, ejection fraction 55%-60% from hypertensive heart disease. 2. Hyperlipidemia. 3. Essential hypertension. 4. Restless legs syndrome. 5. Hypothyroidism. 6. Acute exacerbation of chronic obstructive pulmonary disease in an ex-smoker. 7. Chronic gait dysfunction, uses a walker at her baseline. 8. Chronic hypoxic respiratory failure on home oxygen 2-3L from chronic obstructive pulmonary disease. 9. Chronic hiatal hernia. 10.Moderate secondary pulmonary hypertension secondary to chronic obstructive pulmonary disease. 11.Severe mitral regurgitation, nonrheumatic. 12.Pneumonia secondary to Klebsiella pneumoniae. 13.Procedure, status post bronchoscopy. 14.Episode of tremors during night with mumbling, could be abnormal sleep cycle. Neurological consultation is pending. PLAN: Will continue patient on DuoNeb. Will cut back on the Solu-Medrol to 40. Will complete a course of Levaquin per Pulmonary. Neurology consultation was done that is pending. Care was discussed with the patient. Questions were answered. MMODL / IJN: [id number] /
[2018-05-16 20:20] LABS: Glucose,Whole Blood 177 mg/dL (75-99)
[2018-05-16] MEDS: ATORVASTATIN 10 MG TAB PO SCH (20:44)
[2018-05-16] MEDS: TEMAZEPAM 15 MG CAP PO PRN (23:08)
[2018-05-17] MEDS: LEVOTHYROXINE 112 MCG TAB PO SCH (05:21)
[2018-05-17] MEDS: HYDROcodone/APAP 10-325MG 1 EACH TAB PO PRN ×2 (05:21→11:22)
[2018-05-17 06:03] VITALS: BP 108/69; TEMP 97.7
[2018-05-17] MEDS: BUDESONIDE 1 MG/2 ML NEBU INHALATION SCH (07:09)
[2018-05-17] MEDS: FORMOTEROL FUMARATE 20 MCG/2 ML NEBU INHALATION SCH (07:09)
[2018-05-17] MEDS: IPRATROPIUM-ALBUTEROL 3 ML NEB INHALATION SCH ×3 (07:09→15:50)
[2018-05-17 07:27] LABS: Glucose,Whole Blood 145 mg/dL (75-99)
[2018-05-17] MEDS: FUROSEMIDE 40 MG TAB PO SCH ×2 (07:36→14:57)
[2018-05-17] MEDS: PREGABALIN 75 MG CAP PO SCH ×2 (07:36→14:57)
[2018-05-17] MEDS: HEPARIN SODIUM,PORCINE 5,000 UNIT/ML 1 ML VIAL SQ SCH (07:36)
[2018-05-17] MEDS: diphenhydrAMINE 25 MG CAP PO PRN ×2 (07:36→14:56)
[2018-05-17] MEDS: MAGNESIUM OXIDE 400 MG TAB PO SCH (07:37)
[2018-05-17] MEDS: PANTOPRAZOLE 40 MG TABLET PO SCH (07:37)
[2018-05-17] MEDS: FLUoxetine HCL 20 MG CAP PO SCH (07:38)
[2018-05-17] MEDS: SPIRONOLACTONE 25 MG TAB PO SCH (07:38)
[2018-05-17] MEDS: INSULIN ASPART 100 UNIT/ML 1 ML 10 ML VIAL SQ SCH ×2 (07:47→11:57)
[2018-05-17] MEDS ORDERED: predniSONE 20 MG TAB PO SCH (09:00)
[2018-05-17 11:48] VITALS: PULSE 80
[2018-05-17 11:51] LABS: Glucose,Whole Blood 207 mg/dL (75-99)
[2018-05-17] MEDS: LEVOFLOXACIN 750 MG TAB PO SCH (14:52)
--- NOTE | 2018-05-17 14:57 | P.PN ---
Subjective Progress Note Date: 05/17/18 Principal diagnosis: Acute exacerbation of COPD and community-acquired pneumonia 72-year-old female patient with known history of COPD has been maintained on DuoNeb neb last treatment [id number] along with oxygen at 2 L/m nasal cannula, was seen in our office yesterday because of increased shortness of breath, increased dyspnea, chest tightness and wheezing. She had a congested cough. She was unable to bring up much sputum. No pleurisy or hemoptysis. She was seen in the office and the patient had a chest x-ray that showed evidence of pulmonary vessel congestion and suspected left lower lobe pulmonary infiltration/pneumonia. No evidence of any pneumothorax. Patient is afebrile. The patient's hemodynamically stable. The patient was hospitalized in the past for a similar complaint and her last hospitalization was in December 2017 and back then the patient a CAT scan of the chest that showed some limited groundglass/. Tree and bud pulmonate infiltrates for which the patient underwent a bronchoscopy and the bronchioloalveolar lavage showed no evidence of any microbial growth. This was done by Dr. Faustin. The patient since then was doing fine utilizing her DuoNeb nebulized treatments. She is not using any form of maintenance respiratory medications. The patient also is known to have multiple medical problems and comorbidities. 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 She also has chronic degenerative arthritis and she has undergone a right shoulder and the right knee replacement and previous history of cervical spine fusion. She has chronic back pain and restless leg syndrome. No significant leukocytosis. The rest of the blood work essentially within normal limits. Cardiac enzymes have been negative. The patient is seen again today 05/08/2018 in follow-up on the regular medical floor. She is currently sitting up in a chair at the bedside. She is awake and alert in no acute distress. She is maintaining good O2 saturations in the 90s on 3 L/m per nasal cannula. Blood cultures reveal no growth. White count 9.1. Hemoglobin 14.2. Creatinine 1.03. She remains on bronchodilators, IV Solu-Medrol, empiric antibiotics. She is on oral diuretics. Cardiology is following. The patient is seen again today 05/09/2018 in follow-up on the regular medical floor. She is currently resting quite comfortably in bed. She remains awake and alert in no acute distress. She is maintaining good O2 saturations in the 90s on 3 L/m per nasal cannula. She's currently afebrile. Hemodynamically stable. Blood cultures reveal no growth to date. White count 7.4. Hemoglobin 14.4. Creatinine 1.14. She remains on bronchodilators, Zosyn and Levaquin, diuretics. On 05/10/2018, patient is still short of breath. She is still being treated for an acute COPD exacerbation. Note that she has also history of valvular heart disease with mitral regurgitation. No fever or chills. Still bronchus spastic and wheezy. I have the patient on Solu Medrol 40 g every 8 hours and Augmentin was also added as an empiric antibiotic coverage. No chest pain. She gets labored breathing when she does some activity and she gets worked 7 she becomes more bronchus spastic and wheezy. Limited edema in lower extremities bilaterally. Lasix is currently on hold. She is on DuoNeb neb last treatment [id number], Pulmicort Respules, IV Solu Medrol 40 mg every 8 hours and the rest of the outpatient indications of been ordered resume. On 05/11/2018 patient seen in follow-up on medical surgical floor. She states she is improving, no fever, no chills. No chest discomfort. Lung sounds are positive for bibasilar crackles, patient does get dyspneic with any exertion. Has productive cough with clear sputum. Microbiology remains negative. Patient remains on empiric antibiotics in the form of Augmentin for the left lower lobe pneumonia. She is on nebulized bronchodilators, Pulmicort and Perforomist. Patient has some limited edema in her lower extremities bilaterally. A 6 remains on hold. Patient continues on her Aldactone. Today' s lab work has been reviewed, sodium is 138, potassium is 3.9, chloride is 93, CO2 36, B1 is 31, creatinine 0.99. On 05/12/2018 patient seen again on medical surgical floor. She states she is short of breath at rest, she is having some chest tightness, dyspnea, she feels like her lungs are filling up again with fluid. We gave her 1 dose of oral Lasix 20 mg in patient states she did not diurese significantly. Her oxygenation stable on 2 L per nasal cannula in the pulse ox is 95%, she remains afebrile, denies any fever or chills. On sounds are positive for bibasilar crackles, and a few scattered expiratory wheezes in the anterior upper lobes. Today's BMP was reviewed, sodium is 137, potassium is 4.1, chloride is 94, CO2 36, BUN is 33, creatinine is 1.0. Changes remain negative to date. Patient is being treated with oral Augmentin for her community-acquired left lower lobe pneumonia. We will obtain a follow-up chest x-ray today, we may have to give the patient another dose of IV Lasix, and monitor for her response. On 05/13/2018 patient seen again in follow-up. Patient reports limited improvement, still complains of shortness of breath, lung sounds are positive for coarse bilateral bases crackles, yesterday we increased patient's Lasix to 40 mg every 8 hours, patient is diuresing, and she is complaining of urinary frequency, and sensation of urinary retention, however bedside bladder ultrasound post void residuals was 50 mL. Patient remains afebrile, she remains on empiric antibiotics, microbiology remains negative. View of her ongoing shortness of breath, she will undergo bronchoscopy with BAL today by Dr. Ricketts On 05/14/2018 patient seen again in follow-up. Yesterday she underwent bronchoscopy with BAL by Dr. Ricketts, and there was a large amount of retained secretions that were suctioned from her airways. Patient continues on IV diuretics, she is diuresing, and her weight is down 2 kg in the last 24 hours, she reports breathing easier, less congested, sounds reveal better air in entry bilaterally, with bibasilar crackles. Increase patient's activity as tolerated , patient remains afebrile, chest pain, no worsening dyspnea, she continues on 3 L per nasal cannula, pulse ox of 94%, bronchial wash cultures are pending, antibiotics have been switched to Levaquin yesterday. His chest x-ray has been reviewed by Dr. Ricketts, and showed improvement in aeration compared to prior exams. He shouldn't is stable, improving, and could be considered for discharge home today on oral course of antibiotics, and her maintenance dose of Lasix, and nebulized treatments and inhalers. On 05/15/2018 patient seen again in follow-up on medical surgical floor. She is awake alert, denies any acute distress, she has been ambulating with a walker in the room, but he has not done any extensive ambulation in the hallway , nevertheless she continues to improve. No worsening dyspnea, lung sounds are positive for minimal crackles at the left lower base. Sucks on 3 L per nasal cannula is 93%. Patient is afebrile, IV Lasix has been transitioned to oral, she has been treated and IV steroids, antibiotics, and breathing treatments. Bronchial wash preliminary Gram stain showed no organisms. Final culture is pending. No fever no chills. From pulmonary standpoint patient is stable for discharge home today. The patient is seen again today 05/16/2018 in follow-up on the regular medical floor. She is currently sitting up in a chair at the bedside. She is awake and alert in no acute distress. She denies any worsening shortness of breath, cough or congestion. No chills or night sweats. Bronchial wash findings were positive for Klebsiella pneumoniae and she is currently on Levaquin and will continue with her breathing treatments. Reevaluated today on 05/17/2018, patient seems to be doing well, hardly any cough , no wheezing, no shortness of breath, bronchial washings came back positive for Kristy and Klebsiella pneumonia. Patient is on proper treatment, doing great, asymptomatic, and I believe she could be discharged home on oral antibiotics. Clinically the questionable seizure is not truly a seizure. Objective - Vital Signs Vital signs: Vital Signs Temp 97.7 F 05/17/18 05:05 Pulse 80 05/17/18 11:48 Resp 16 05/17/18 05:05 BP 108/69 05/17/18 05:05 Pulse Ox 97 05/17/18 05:05 Intake & Output 05/16/18 05/17/18 05/17/18 18:59 06:59 18:59 Intake Total 780 150 980 Output Total 400 4 Balance 380 150 976 Weight 80 kg 79 kg 79 kg Intake: Oral 780 150 980 Output: Urine 400 4 Other: Voiding Method Bedside Commode # Voids 3 1 2 # Bowel Movements 3 2 - Exam Gen. appearance the patient is calm comfortable and mild degree of respiratory distress, a bit anxious Head exam was generally normal. There was no scleral icterus or corneal arcus. Mucous membranes were moist. Neck was supple and without jugular venous distension, thyromegaly, or carotid bruits. Carotids were easily palpable bilaterally. There was no adenopathy. Lungs sounds are diminished bilaterally Cardiac exam revealed the PMI to be normally situated and sized. The rhythm was regular and no extrasystoles were noted during several minutes of auscultation. The first and second heart sounds were normal and physiologic splitting of the second heart sound was noted. There were no murmurs, rubs, clicks, or gallops. Abdominal exam revealed normal bowel sounds. The abdomen was soft, non-tender, and without masses, organomegaly, or appreciable enlargement of the abdominal aorta. Examination of the extremities revealed easily palpable radial, femoral and pedal pulses. There was no cyanosis, clubbing or edema. Muscular skeletal exam shows normal strength and tone. The patient has had a right shoulder replacement scars in place and the patient has also had a right knee replacement the scar is in place. No scoliosis. No deformities. Examination of the skin revealed no evidence of significant rashes, suspicious appearing nevi or other concerning lesions. Neurologically the patient has some right facial weakness otherwise motor function is equal and symmetrical in all 4 extremities and the patient is awake and alert 3. Psychiatric the patient has normal mood and affect and judgment and insight. - Labs CBC & Chem 7: 05/14/18 07:06 05/14/18 07:06 Labs: Abnormal Lab Results - Last 24 Hours (Table) 05/16/18 05/16/18 05/17/18 Range/Units 17:34 20:16 07:26 POC Glucose (mg/dL) 213 H 177 H 145 H (75-99) mg/dL 05/17/18 Range/Units 11:50 POC Glucose (mg/dL) 207 H (75-99) mg/dL Microbiology - Last 24 Hours (Table) 05/13/18 12:11 Gram Stain - Final Bronchial Washings - Random Bronchial Washings Culture - Final Kristy albicans Klebsiella pneumoniae Kristy glabrata Assessment and Plan Assessment: 1 acute on chronic hypoxic respiratory failure secondary to an acute exacerbation of chronic obstructive pulmonary disease, complicated by Klebsiella pneumoniae in her bronchial wash. 2 acute exacerbation of chronic diastolic congestive heart failure secondary to valvular heart disease with moderate mitral stenosis and severe mitral regurgitation. The patient is a preserved LV function with an ejection fraction of 60-65% 3 advanced oxygen-dependent COPD maintained on DuoNeb nebulized treatment around -the-clock 4 CVA with recurrent TIAs and the residual right facial weakness 5 hypertension 6 hyperlipidemia 7 hypothyroidism 8 coronary artery disease 9 fibromyalgia 10 chronic pain Recommendation: Patient is cleared for discharge planning today, follow up with me in the office in one week.
--- NOTE | 2018-05-18 07:14 | DS ---
DISCHARGE SUMMARY DATE OF ADMISSION: 05/06/18. DATE OF DISCHARGE: 05/17/18. FINAL DIAGNOSES: 1. Acute on chronic congestive heart failure exacerbation from diastolic dysfunction. Ejection fraction 50-60% from hypertensive heart disease. 2. Pneumonia secondary to Klebsiella pneumoniae. 3. Hyperlipidemia. 4. Essential hypertension. 5. Restless legs syndrome. 6. Hypothyroidism. 7. Acute exacerbation of chronic obstructive pulmonary disease in an ex-smoker. 8. Chronic gait dysfunction, uses a walker at baseline. 9. Chronic hypoxic respiratory failure on home oxygen 2-3 L from chronic obstructive pulmonary disease. 10.Chronic hiatal hernia. 11.Moderate secondary pulmonary hypertension secondary to chronic obstructive pulmonary disease. 12.Severe mitral regurgitation, nonrheumatic. PROCEDURE: Bronchoscopy. CONSULTATIONS: 1. Dr. Faustin from Pulmonary. 2. Dr. Draper from Neurology. 3. Dr. Arizmendi from Cardiology. HOSPITAL COURSE: This is a patient with multiple medical problems presented with shortness of breath, felt to have a combination of pneumonia and CHF exacerbation. The patient at home takes 2-3 L of oxygen. The patient did undergo bronchoscopy by Dr. Faustin. The above organism was found. The patient is found to have severe tracheobronchitis, purulent. The patient also did undergo bronchoalveolar lavage. By the time of discharge, patient is feeling much better. Also the patient dose of Lasix was increased because of CHF. The patient's 2D echo shows preserved LV function. EXAMINATION: Lungs: Decreased breath sounds. No edema. Psych: AO x3. DISCHARGE MEDICATIONS: 1. Zocor 20 mg p.o. q.h.s. 2. Aggrenox 1 tab p.o. b.i.d. 3. Cameron 10 1 tab p.o. t.i.d. 4. Lyrica 150 mg p.o. t.i.d. 5. Requip 3 mg p.o. t.i.d. 6. Synthroid 112 mcg p.o. daily. 7. Prozac 20 mg p.o. daily. 8. Magnesium oxide 400 mg p.o. daily. 9. Aldactone 25 mg p.o. daily. 10.Duragesic 12 patch every 72 hours. 11.DuoNeb q.i.d. 12.Levaquin 750 mg daily for 7 days. 13.Lasix 40 mg p.o. b.i.d. 14.Prednisone taper. Follow with Dr. Faustin in 1 week, Dr. Ulrich in 1 week. BMP on 05/21/18. Home oxygen 2- 3 L of nasal cannula to continue. Discharge planning more than 35 minutes. MMODL / IJN: [id number] /
== END 2018-05-17 16:06 | disposition home or self-care (01) | DRG 166 ==
LOC: 5MS5E 10:30
PROVIDERS: ADMIT Hospitalist; ATTEND Hospitalist
PROC: 0B9F8ZX Drainage of Right Lower Lung Lobe, Via Natural or Artificial Opening Endoscopic, Diagnostic (ICD-10-PCS; 2018-05-13)
PROC: 0B9J8ZX Drainage of Left Lower Lung Lobe, Via Natural or Artificial Opening Endoscopic, Diagnostic (ICD-10-PCS; principal; 2018-05-13 07:30)
PROC: 0B9D8ZX Drainage of Right Middle Lung Lobe, Via Natural or Artificial Opening Endoscopic, Diagnostic (ICD-10-PCS; 2018-05-13 07:30)
DX: J15.0 Pneumonia due to Klebsiella pneumoniae (principal); I50.33 Acute on chronic diastolic (congestive) heart failure; J96.21 Acute and chronic respiratory failure with hypoxia; J44.1 Chronic obstructive pulmonary disease with (acute) exacerbation; J44.0 Chronic obstructive pulmonary disease with (acute) lower respiratory infection; J98.11 Atelectasis; K21.9 Gastro-esophageal reflux disease without esophagitis; E78.5 Hyperlipidemia, unspecified; I10 Essential (primary) hypertension; M19.90 Unspecified osteoarthritis, unspecified site; E86.0 Dehydration; Z96.611 Presence of right artificial shoulder joint; Z96.651 Presence of right artificial knee joint; G25.81 Restless legs syndrome; M54.9 Dorsalgia, unspecified; I11.0 Hypertensive heart disease with heart failure; K44.9 Diaphragmatic hernia without obstruction or gangrene; G89.4 Chronic pain syndrome; M79.7 Fibromyalgia; E89.0 Postprocedural hypothyroidism; D69.6 Thrombocytopenia, unspecified; I25.10 Atherosclerotic heart disease of native coronary artery without angina pectoris; I27.29 Other secondary pulmonary hypertension; Z98.1 Arthrodesis status; I69.392 Facial weakness following cerebral infarction; I25.2 Old myocardial infarction; Z79.899 Other long term (current) drug therapy; Z79.890 Hormone replacement therapy; Z79.891 Long term (current) use of opiate analgesic; Z79.82 Long term (current) use of aspirin; Z88.1 Allergy status to other antibiotic agents; Z88.5 Allergy status to narcotic agent; Z88.2 Allergy status to sulfonamides; Z88.8 Allergy status to other drugs, medicaments and biological substances; Z87.891 Personal history of nicotine dependence; Z99.81 Dependence on supplemental oxygen; Z90.710 Acquired absence of both cervix and uterus; Z90.49 Acquired absence of other specified parts of digestive tract; Z82.49 Family history of ischemic heart disease and other diseases of the circulatory system
CPT/HCPCS: 31624; 31645; 70450; 71045; 71046; 80048; 80053; 80076; 83036; 83880; 84484; 85025; 87040; 87070; 87077; 87102; 87116; 87186; 87205; 87206; 87252; 87496; 87498; 87502; 87529; 87634; 87798; 88108; 88305; 89050; 93005; 93306; 94640; 94760

== ENCOUNTER → 2018-05-28 | Outpatient (CLI) | payer MEDICARE ==
[2018-05-28 12:49] LABS: Calcium 8.6 mg/dL (8.4-10.2)
== END | disposition home or self-care (01) ==
LOC: LABWHC1 11:37
PROVIDERS: ATTEND Internal Medicine
DX: E87.6 Hypokalemia (principal)
CPT/HCPCS: 36415; 80048

== ENCOUNTER 2018-06-22 16:15 | Inpatient (IN) | payer MEDICARE ==
[2018-06-22] MEDS ORDERED: ONDANSETRON 4 MG/2 ML VIAL IVP STA (16:21)
[2018-06-22] MEDS ORDERED: FAMOTIDINE 20 MG/2 ML VIAL IV STA (16:21)
[2018-06-22] MEDS ORDERED: ASPIRIN 81 MG PO STA (16:21)
[2018-06-22] MEDS ORDERED: SODIUM CHLORIDE 0.9% 1,000 ML IV STA (16:21)
[2018-06-22] MEDS ORDERED: NITROGLYCERIN SL TABS 0.4 MG TAB SUBLINGUAL STA ×3 (16:21)
[2018-06-22] MEDS ORDERED: SODIUM CHLORIDE 0.9% 500 ML IV STA ×2 (16:22→17:13)
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
--- NOTE | 2018-06-22 17:01 | XR ---
EXAMINATION: XR chest 2V DATE AND TIME: 06/22/2018 4:48 PM ORDERING PROVIDER: Kai Aguila DO CLINICAL INDICATION: Chest Pain TECHNIQUE: AP and lateral COMPARISON: 05/14/2018 DESCRIPTION: The lungs are predominantly clear, with overall similar inflation as seen on the prior s tudy. There are a few scattered linear bands of added opacity, likely subsegmental atelectasis and of doubtful clinical significance. There is no camille pulmonary consolidation and no overt pulmonary austyn ma pattern. Again, similar overall lung inflation as seen on the prior study. Pleural spaces are negative. Cardiac silhouette and bones and soft tissues are negative for acute findings. IMPRESSION: Minor findings; similar overall lung inflation compared to the 05/14/2018 x-ray examination.
[2018-06-22 17:03] LABS: Basophils % (A) 0 %; Eosinophils % (A) 0 %; HCT 39.7 % (34.0-46.0); Lymphocytes % (A) 12 %; MCH 30.5 pg (25.0-35.0); MCHC 32.8 g/dL (31.0-37.0); Mean Platelet Volume 8.2; Monocytes # (A) 0.4 k/uL (0-1.0); Monocytes % (A) 4 %; Neutrophils # (A) 6.6 k/uL (1.3-7.7); Neutrophils % (A) 81 %; RBC 4.27 m/uL (3.80-5.40); RDW 15.4 % (11.5-15.5); WBC 8.1 k/uL (3.8-10.6)
[2018-06-22 17:04] LABS: ALT 32 U/L (9-52); AST 21 U/L (14-36); Albumin 3.2 g/dL (3.5-5.0); Alkaline Phosphatase 94 U/L (38-126); Amylase <30 U/L (30-110); Anion Gap 5 mmol/L; Blood Urea Nitrogen 14 mg/dL (7-17); Calcium 8.5 mg/dL (8.4-10.2); Carbon Dioxide 25 mmol/L (22-30); Chloride 112 mmol/L (98-107); Glucose 99 mg/dL (74-99); Lipase 66 U/L (23-300); Magnesium 2.4 mg/dL (1.6-2.3); Potassium 3.9 mmol/L (3.5-5.1); Sodium 142 mmol/L (137-145); Total Bilirubin 0.8 mg/dL (0.2-1.3); Total Protein 5.4 g/dL (6.3-8.2)
[2018-06-22 17:06] LABS: INR 1.1 (<1.2); Partial Thromboplastin Time 22.5 sec (22.0-30.0); Platelet Count 137 k/uL (150-450); Prothrombin Time 10.8 sec (9.0-12.0)
[2018-06-22 17:20] LABS: Creatine Kinase 24 U/L (30-135)
[2018-06-22 17:33] LABS: Creatine Kinase MB 0.4 ng/mL (0.0-2.4); Troponin I <0.012 ng/mL (0.000-0.034)
[2018-06-22] MEDS ORDERED: MORPHINE SULFATE 2 MG/ML SYRINGE IVP STA (18:49)
[2018-06-22] MEDS ORDERED: NITROGLYCERIN SL TABS 0.4 MG TAB SUBLINGUAL PRN (18:51)
[2018-06-22] MEDS: FAMOTIDINE 20 MG/2 ML VIAL IV SCH ×2 (21:16)
[2018-06-22 23:14] LABS: Creatine Kinase 21 U/L (30-135)
[2018-06-22 23:28] LABS: Creatine Kinase MB 0.4 ng/mL (0.0-2.4); Troponin I <0.012 ng/mL (0.000-0.034)
[2018-06-23] MEDS: ONDANSETRON 4 MG/2 ML VIAL IVP PRN ×3 (00:30→21:03)
[2018-06-23] MEDS ORDERED: LORazepam 2 MG/ML INJ IV STA (02:21)
[2018-06-23 03:31] LABS: Cholesterol 118 mg/dL (<200); HDL Cholesterol 54 mg/dL (40-60); LDL Cholesterol,Calculated 52 mg/dL (0-99); Triglycerides 60 mg/dL (<150)
[2018-06-23] MEDS: NITROGLYCERIN OINT 1 INCH/GM PACKET TOPICAL SCH ×5 (05:07→23:05)
[2018-06-23 05:53] LABS: Creatine Kinase 31 U/L (30-135)
[2018-06-23 06:05] LABS: Troponin I <0.012 ng/mL (0.000-0.034)
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
[2018-06-23] MEDS ORDERED: HYDROcodone/APAP 10-325MG 1 EACH TAB PO PRN (10:50)
[2018-06-23] MEDS ORDERED: SPIRONOLACTONE 25 MG TAB PO SCH (11:00)
[2018-06-23] MEDS: IPRATROPIUM-ALBUTEROL 3 ML NEB INHALATION SCH ×3 (11:49→20:12)
[2018-06-23] MEDS ORDERED: MELATONIN 3 MG TABLET PO PRN (12:46)
[2018-06-23] MEDS ORDERED: MAGNESIUM HYDROXIDE 2,400 MG/10 ML CUP PO PRN (12:46)
[2018-06-23] MEDS ORDERED: CALCIUM CARBONATE 500 MG CHEWABLE PO PRN (12:46)
[2018-06-23] MEDS ORDERED: LACTULOSE 20 GM/30 ML CUP PO PRN (12:46)
[2018-06-23] MEDS ORDERED: ACETAMINOPHEN TAB 325 MG TAB PO PRN (12:46)
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
[2018-06-23] MEDS: FUROSEMIDE 40 MG TAB PO SCH ×2 (14:32→20:56)
[2018-06-23] MEDS: PREGABALIN 75 MG CAP PO SCH ×3 (14:38→20:57)
[2018-06-23] MEDS: IOPAMIDOL-300 CONTRAST 30 ML VIAL (ORAL USE) PO PRN ×2 (14:41→15:38)
[2018-06-23] MEDS: LACTATED RINGERS 1,000 ML IV SCH (14:41)
[2018-06-23] MEDS: ASPIRIN 325 MG TAB PO SCH (14:43)
--- NOTE | 2018-06-23 16:46 | CT ---
EXAMINATION TYPE: CT abdomen pelvis w con DATE OF EXAM: 06/23/2018 COMPARISON: 2 12/24/2019 HISTORY: Abdominal pain and vomiting CT DLP: 1050.2 mGycm Automated exposure control for dose reduction was used. TECHNIQUE: Helical acquisition of images was performed from the lung bases through the pelvis. CONTRAST: Performed with Oral Contrast and with IV Contrast, patient injected with 100 mL of Isovue 3 00. FINDINGS: LUNG BASES: The lung bases are clear. Visualized pleural spaces are negative. Coronary calcifications are noted, with mild cardiomegaly and panchamber enlargement. LIVER/GB: No significant abnormality is appreciated. PANCREAS: No significant abnormality is seen. SPLEEN: No significant abnormality is seen. ADRENALS: Stable appearance of bilateral adrenal nodules, consistent with adrenal adenomas. KIDNEYS: No significant abnormality is seen. FREE AIR: No free air is visualized. RETROPERITONEAL ADENOPATHY: None visualized REPRODUCTIVE ORGANS: No significant abnormality is seen URINARY BLADDER: No significant abnormality is seen. PELVIC ADENOPATHY: None visualized. OSSEOUS STRUCTURES: No significant abnormality is seen. BOWEL: No acute processes. Postgastrectomy changes redemonstrated. Redemonstrated cecal findings, sim ilar to the prior study of December 2016. OTHER: Vasculature is negative for acute findings. Nonaneurysmal atherosclerotic calcifications are n oted throughout the abdomen and pelvis, moderate in degree. IMPRESSION: NO ACUTE PROCESS.
--- NOTE | 2018-06-23 16:57 | XR ---
PROCEDURE: XR cervical spine w flex/ext, 7 views DATE AND TIME: 06/23/2018 4:48 PM REFERRING PHYSICIAN: Tom Sequeira MD CLINICAL INDICATION: PHH, neck pain TECHNIQUE: Department protocol. COMPARISON: 11/08/2014 FINDINGS: The orthopedic hardware is intact. No periprosthesis lucencies. There is no fracture. No malalignment. There is mild-plus interval increase in the degree of spondylosis changes at all levels. The soft tissues are unremarkable. IMPRESSION: NO ACUTE RADIOGRAPHIC PROCESS.
[2018-06-23] MEDS: LEVOTHYROXINE 112 MCG TAB PO SCH (18:01)
[2018-06-23] MEDS: FLUoxetine HCL 20 MG CAP PO SCH (18:01)
[2018-06-23] MEDS: DIPYRIDAMOLE-ASPIRIN 200-25 MG 1 EACH CPMP.12HR PO SCH ×2 (18:01→20:56)
[2018-06-23] MEDS: MAGNESIUM OXIDE 400 MG TAB PO SCH (18:01)
[2018-06-23] MEDS: HYDROcodone/APAP 10-325MG 1 EACH TAB PO SCH ×2 (18:01→20:55)
[2018-06-23] MEDS: ENOXAPARIN 40 MG/0.4 ML SYRINGE SQ SCH (18:02)
[2018-06-23] MEDS: FAMOTIDINE 20 MG/2 ML VIAL IV SCH (18:17)
[2018-06-23] MEDS: FAMOTIDINE 20 MG TAB PO SCH (20:56)
[2018-06-23] MEDS ORDERED: ATORVASTATIN 10 MG TAB PO SCH (21:00)
[2018-06-24] MEDS: LACTATED RINGERS 1,000 ML IV SCH (02:56)
[2018-06-24] MEDS: ONDANSETRON 4 MG/2 ML VIAL IVP PRN ×2 (02:56→09:06)
[2018-06-24] MEDS: NITROGLYCERIN OINT 1 INCH/GM PACKET TOPICAL SCH ×2 (06:35→14:41)
[2018-06-24] MEDS: LEVOTHYROXINE 112 MCG TAB PO SCH (06:35)
[2018-06-24] MEDS: IPRATROPIUM-ALBUTEROL 3 ML NEB INHALATION SCH ×3 (07:50→15:32)
[2018-06-24] MEDS ORDERED: ALPRAZolam 0.5 MG TAB PO PRN (08:33)
[2018-06-24] MEDS ORDERED: ALPRAZolam 0.25 MG TAB PO PRN (08:33)
[2018-06-24] MEDS: SODIUM CHLORIDE 0.9% 1,000 ML in EMPTY BAG 1 BAG IV ONE ×2 (09:08→09:37)
[2018-06-24] MEDS: ASPIRIN 325 MG TAB PO SCH (09:29)
[2018-06-24] MEDS ORDERED: LIDOCAINE 1% INJ 10MG/ML (20 ML MDV) ONE (09:38)
[2018-06-24 09:41] VITALS: RESP 18
[2018-06-24] MEDS ORDERED: IV FLUID CONTINUATION 850 ML IV ONE (09:45)
[2018-06-24] MEDS ORDERED: MIDAZOLAM 2 MG/2 ML VIAL ONE (10:15)
[2018-06-24] MEDS ORDERED: fentaNYL (PF) 50 MCG/ML 2 ML AMP ONE (10:16)
[2018-06-24] MEDS ORDERED: fentaNYL (PF) 50 MCG/ML 2 ML AMP IV ONE (10:18)
[2018-06-24] MEDS ORDERED: MIDAZOLAM 2 MG/2 ML VIAL IV ONE (10:18)
[2018-06-24] MEDS ORDERED: LIDOCAINE 1% INJ 10MG/ML (20 ML MDV) SQ ONE (10:24)
[2018-06-24] MEDS ORDERED: IOPAMIDOL-250 50ML BTL INTRAARTER ONE (10:42)
[2018-06-24] MEDS ORDERED: IOPAMIDOL-370 50ML BTL INJ ONE (10:42)
[2018-06-24] MEDS ORDERED: IOPAMIDOL-370 125ML BTL INJ ONE (10:42)
--- NOTE | 2018-06-24 11:16 | CC ---
CARDIAC CATHETERIZATION REPORT Mrs. Scanlon is a 72-year-old female, who was admitted to the hospital with recurrent chest pain. Pain was relieved with nitroglycerin. Patient did had a CAT scan of the abdomen which did not show any significant abnormality. In view of the recurrent chest pain. Patient was advised cardiac catheterization for definitive diagnosis. PROCEDURE: The right groin was prepped and draped in the usual manner and the skin was infiltrated with 2% xylocaine. The right femoral artery was entered using Seldinger technique. An #6-Amharic sheath was placed in. Selective coronary angiography was then performed in multiple projections and the left ventricular pressures were obtained and left ventriculography was performed. Patient tolerated the procedure well. Sheath was removed and good hemostasis was achieved with the use of Angio-Seal. HEMODYNAMICS: The left ventricular end-diastolic pressure is 18 mmHg prior to angiography. No gradient is noted across the aortic valve. SELECTIVE CORONARY ANGIOGRAPHY: Left main coronary artery is normal and patent. LAD is a good caliber blood vessel and gives rise to good-sized diagonal branch. The mid LAD shows mild irregularity. Circumflex coronary artery is codominant distribution and gives rise to good-sized PDA and PLV branch and circumflex coronary artery and its branches are normal. Right coronary artery is a codominant distribution, gives rise to small size PDA, it is normal. Left ventriculography reveals normal left ventricular systolic function. There is evidence of 2+ mitral regurgitation. FINAL IMPRESSION: This study reveals a minimal irregularity in the mid LAD. Left ventriculography reveals 2+ mitral regurgitation. Systolic function is normal. RECOMMENDATIONS: Medical treatment. MMODL / IJN: [id number] /
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
[2018-06-24] MEDS ORDERED: RX INFO: IV CONTRAST WAS GIVEN 1 EACH MISC MISCELLANE PRN (11:43)
[2018-06-24] MEDS: DIPYRIDAMOLE-ASPIRIN 200-25 MG 1 EACH CPMP.12HR PO SCH (12:19)
[2018-06-24] MEDS: ENOXAPARIN 40 MG/0.4 ML SYRINGE SQ SCH (12:19)
[2018-06-24] MEDS: HYDROcodone/APAP 10-325MG 1 EACH TAB PO SCH ×2 (12:19→15:35)
[2018-06-24] MEDS: PREGABALIN 75 MG CAP PO SCH (14:43)
[2018-06-24] MEDS: FUROSEMIDE 40 MG TAB PO SCH (14:43)
[2018-06-24] MEDS: FLUoxetine HCL 20 MG CAP PO SCH (14:43)
[2018-06-24] MEDS: FAMOTIDINE 20 MG TAB PO SCH (14:43)
[2018-06-24] MEDS: MAGNESIUM OXIDE 400 MG TAB PO SCH (14:43)
[2018-06-24 15:45] VITALS: PULSE 68
[2018-06-24 17:01] VITALS: BP 100/60; TEMP 98.5
--- NOTE | 2018-06-25 06:53 | DS ---
DISCHARGE SUMMARY DATE OF ADMISSION: 06/23/18. DATE OF DISCHARGE: 06/24/18. FINAL DIAGNOSES: 1. Anterior chest wall pain, mostly on the right side, probably musculoskeletal. 2. Obesity; BMI greater than 30. 3. Chronic congestive heart failure from diastolic dysfunction. Ejection fraction 55- 60%. 4. Chronic obstructive pulmonary disease in an ex-smoker. 5. Mild right-sided facial weakness from prior stroke. 6. Chronic fibromyalgia. 7. Gastroesophageal reflux disease. 8. Hyperlipidemia. 9. Essential hypertension. 10.Primary osteoarthritis in multiple joints bilateral. 11.Hypothyroidism. 12.Chronic hypoxic respiratory failure on home oxygen. 13.Chronically paralyzed right diaphragm. 14.Secondary pulmonary hypertension. 15.Moderate mitral stenosis and severe mitral regurgitation, probably nonrheumatic. 16.Severe degenerative joint disease of the neck and back. 17.Restless legs syndrome. 18.Hiatal hernia. 19.Chronic stress incontinence. HOSPITAL COURSE: This patient presented with chest pain. Troponins were negative. Cardiac cath showed minimal disease if any. The patient is feeling much better the time of discharge. Also had CT scan of the pelvis and abdomen that was unremarkable. Also seen by Dr. Sheth's team from [facility]. The patient will follow with them as an outpatient. Overall pain was much better. Family is at the bedside. PHYSICAL EXAMINATION: On examination: Temperature 98.7, pulse 79, respirations 18, blood pressure 96/61, pulse ox 97% on room air. GENERAL APPEARANCE: Lying in bed, awake. EYES: Pupils equal. Conjunctivae normal. NECK: JVD not raised. Mass not palpable. RESPIRATORY: Effort, lungs are clear. Troponin x3 negative. LDL 52. DISCHARGE MEDICATIONS: 1. Zocor 20 mg q.h.s. 2. Aggrenox 1 tablet p.o. b.i.d. 3. [place] 10 1 tablet p.o. t.i.d. 4. Lyrica 150 mg p.o. t.i.d. 5. Requip 3 mg p.o. t.i.d. 6. Synthroid 112 mcg p.o. daily. 7. Prozac 20 mg p.o. daily. 8. Magnesium oxide 400 mg p.o. daily. 9. Duragesic 12 patch q.72 hours. 10.[place] 10 1 tablet p.o. q.h.s. p.r.n. 11.DuoNeb q.i.d. 12.Lasix 40 mg p.o. b.i.d. FOLLOWUP: Follow up with Dr. Faustin in 2 days, Lv as needed, and Dr. Reginaldo Vasquez in [address] Ulrich in 1 week. MMODL / IJN: [id number] /
== END 2018-06-24 19:15 | disposition home health service (06) | DRG 287 ==
LOC: EC 16:15 → 3OBS 18:51 → OBSVTOIN 06-23 21:11
PROVIDERS: ADMIT Hospitalist; ATTEND Hospitalist
PROC: B211YZZ Fluoroscopy of Multiple Coronary Arteries using Other Contrast (ICD-10-PCS; 2018-06-24)
PROC: B215YZZ Fluoroscopy of Left Heart using Other Contrast (ICD-10-PCS; 2018-06-24)
PROC: 4A023N7 Measurement of Cardiac Sampling and Pressure, Left Heart, Percutaneous Approach (ICD-10-PCS; principal; 2018-06-24 09:46)
DX: R07.89 Other chest pain (principal); I50.32 Chronic diastolic (congestive) heart failure; J96.11 Chronic respiratory failure with hypoxia; I67.1 Cerebral aneurysm, nonruptured; I11.0 Hypertensive heart disease with heart failure; I05.2 Rheumatic mitral stenosis with insufficiency; J44.9 Chronic obstructive pulmonary disease, unspecified; I27.29 Other secondary pulmonary hypertension; I25.10 Atherosclerotic heart disease of native coronary artery without angina pectoris; M79.7 Fibromyalgia; K21.9 Gastro-esophageal reflux disease without esophagitis; E78.5 Hyperlipidemia, unspecified; E89.0 Postprocedural hypothyroidism; I25.2 Old myocardial infarction; I69.992 Facial weakness following unspecified cerebrovascular disease; R40.2142 Coma scale, eyes open, spontaneous, at arrival to emergency department; R40.2252 Coma scale, best verbal response, oriented, at arrival to emergency department; R40.2362 Coma scale, best motor response, obeys commands, at arrival to emergency department; I69.998 Other sequelae following unspecified cerebrovascular disease; J98.6 Disorders of diaphragm; G25.81 Restless legs syndrome; G89.29 Other chronic pain; M54.9 Dorsalgia, unspecified; M19.042 Primary osteoarthritis, left hand; M19.041 Primary osteoarthritis, right hand; M47.812 Spondylosis without myelopathy or radiculopathy, cervical region; N39.3 Stress incontinence (female) (male); F32.9 Major depressive disorder, single episode, unspecified; M25.511 Pain in right shoulder; R26.9 Unspecified abnormalities of gait and mobility; F40.240 Claustrophobia; E66.9 Obesity, unspecified; Z68.32 Body mass index [BMI] 32.0-32.9, adult; Z99.81 Dependence on supplemental oxygen; Z79.82 Long term (current) use of aspirin; Z79.890 Hormone replacement therapy; Z79.891 Long term (current) use of opiate analgesic; Z79.899 Other long term (current) drug therapy; Z98.1 Arthrodesis status; Z90.49 Acquired absence of other specified parts of digestive tract; Z90.710 Acquired absence of both cervix and uterus; Z96.611 Presence of right artificial shoulder joint; Z96.651 Presence of right artificial knee joint; Z87.81 Personal history of (healed) traumatic fracture; Z87.891 Personal history of nicotine dependence; Z87.19 Personal history of other diseases of the digestive system; Z87.01 Personal history of pneumonia (recurrent); Z98.42 Cataract extraction status, left eye; Z98.41 Cataract extraction status, right eye; Z98.51 Tubal ligation status; Z88.5 Allergy status to narcotic agent; Z88.1 Allergy status to other antibiotic agents; Z88.2 Allergy status to sulfonamides; Z88.8 Allergy status to other drugs, medicaments and biological substances; Z82.49 Family history of ischemic heart disease and other diseases of the circulatory system
CPT/HCPCS: 36415; 71046; 72052; 74177; 80053; 80061; 82150; 82550; 82553; 83690; 83735; 83880; 84484; 85025; 85610; 85730; 93005; 93458; 94640; 94760; 96361; 96374; 96375; 96376; 99285

== ENCOUNTER 2018-07-28 14:12 | Observation (INO) | payer MEDICARE ==
[2018-07-28] MEDS ORDERED: NITROGLYCERIN SL TABS 0.4 MG TAB SUBLINGUAL STA (14:47)
[2018-07-28] MEDS ORDERED: ONDANSETRON 4 MG/2 ML VIAL IVP STA (14:47)
[2018-07-28] MEDS ORDERED: ASPIRIN 81 MG PO STA (14:47)
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
[2018-07-28 15:12] LABS: Basophils % (A) 0 %; Eosinophils % (A) 1 %; HGB 14.1 gm/dL (11.4-16.0); Lymphocytes # (A) 0.8 k/uL (1.0-4.8); Lymphocytes % (A) 14 %; MCH 31.3 pg (25.0-35.0); MCHC 32.8 g/dL (31.0-37.0); MCV 95.4 fL (80.0-100.0); Mean Platelet Volume 8.5; Monocytes # (A) 0.3 k/uL (0-1.0); Monocytes % (A) 5 %; Neutrophils # (A) 4.3 k/uL (1.3-7.7); Neutrophils % (A) 79 %; Platelet Count 137 k/uL (150-450); WBC 5.4 k/uL (3.8-10.6)
[2018-07-28 15:22] LABS: ALT 28 U/L (9-52); AST 27 U/L (14-36); Albumin 3.6 g/dL (3.5-5.0); Alkaline Phosphatase 87 U/L (38-126); Anion Gap 5 mmol/L; Blood Urea Nitrogen 12 mg/dL (7-17); Carbon Dioxide 29 mmol/L (22-30); Chloride 107 mmol/L (98-107); Glucose 119 mg/dL (74-99); Magnesium 2.1 mg/dL (1.6-2.3); Sodium 141 mmol/L (137-145); Total Protein 6.3 g/dL (6.3-8.2)
[2018-07-28 15:23] LABS: INR 1.1 (<1.2); Partial Thromboplastin Time 24.6 sec (22.0-30.0); Prothrombin Time 10.8 sec (9.0-12.0)
[2018-07-28 15:30] LABS: Creatine Kinase 40 U/L (30-135)
--- NOTE | 2018-07-28 15:37 | XR ---
EXAMINATION TYPE: XR chest 2V DATE OF EXAM: 07/28/2018 COMPARISON: Chest x-ray June 22, 2018 HISTORY: Chest pain and vomiting today. TECHNIQUE: Frontal and lateral views of the chest are obtained. FINDINGS: There is chronic parenchymal change without suspicious new focal air space opacity, pleura l effusion, or pneumothorax seen. The cardiac silhouette size remains enlarged. With metallic hardwa re from right shoulder surgery is partially imaged. IMPRESSION: Chronic changes and cardiomegaly without acute pulmonary process. No significant change from most recent chest x-ray.
[2018-07-28 15:42] LABS: Creatine Kinase MB 0.6 ng/mL (0.0-2.4); Troponin I <0.012 ng/mL (0.000-0.034)
[2018-07-28] MEDS ORDERED: SODIUM CHLORIDE 0.9% 1,000 ML IV ONE (15:57)
[2018-07-28] MEDS ORDERED: NITROGLYCERIN SL TABS 0.4 MG TAB SUBLINGUAL PRN (15:57)
[2018-07-28] MEDS: IPRATROPIUM-ALBUTEROL 3 ML NEB INHALATION SCH (19:47)
[2018-07-28] MEDS: PREGABALIN 75 MG CAP PO SCH (19:55)
[2018-07-28] MEDS: FUROSEMIDE 20 MG TAB PO SCH (19:55)
[2018-07-28] MEDS: HYDROcodone/APAP 10-325MG 1 EACH TAB PO PRN (20:08)
[2018-07-28] MEDS: DIPYRIDAMOLE-ASPIRIN 200-25 MG 1 EACH CPMP.12HR PO SCH (20:12)
[2018-07-28] MEDS ORDERED: ATORVASTATIN 10 MG TAB PO SCH (21:00)
[2018-07-28 21:23] LABS: Creatine Kinase 46 U/L (30-135)
[2018-07-28 21:37] LABS: Creatine Kinase MB 0.5 ng/mL (0.0-2.4); Troponin I <0.012 ng/mL (0.000-0.034)
[2018-07-29] MEDS: HYDROcodone/APAP 10-325MG 1 EACH TAB PO PRN ×3 (01:23→13:13)
[2018-07-29] MEDS: diphenhydrAMINE 25 MG CAP PO PRN ×2 (01:24→10:06)
[2018-07-29 03:43] VITALS: RESP 18
[2018-07-29 04:11] LABS: Cholesterol 118 mg/dL (<200); HDL Cholesterol 61 mg/dL (40-60); LDL Cholesterol,Calculated 43 mg/dL (0-99); Triglycerides 72 mg/dL (<150)
[2018-07-29 04:20] LABS: Creatine Kinase 109 U/L (30-135)
[2018-07-29 04:33] LABS: Creatine Kinase MB 0.6 ng/mL (0.0-2.4); Troponin I <0.012 ng/mL (0.000-0.034)
[2018-07-29] MEDS ORDERED: LEVOTHYROXINE 112 MCG TAB PO SCH (06:30)
[2018-07-29] MEDS: IPRATROPIUM-ALBUTEROL 3 ML NEB INHALATION SCH ×2 (08:18→13:42)
[2018-07-29] MEDS: DIPYRIDAMOLE-ASPIRIN 200-25 MG 1 EACH CPMP.12HR PO SCH (08:52)
[2018-07-29] MEDS: FUROSEMIDE 20 MG TAB PO SCH ×2 (08:53→15:59)
[2018-07-29] MEDS: PREGABALIN 75 MG CAP PO SCH ×2 (08:53→16:02)
[2018-07-29] MEDS ORDERED: ASPIRIN 325 MG TAB PO SCH (09:00)
[2018-07-29] MEDS ORDERED: FLUoxetine HCL 20 MG CAP PO SCH (09:00)
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
[2018-07-29] MEDS ORDERED: MAGNESIUM OXIDE 400 MG TAB PO SCH (12:00)
[2018-07-29 15:26] VITALS: PULSE 72; TEMP 98.5
[2018-07-29 15:31] VITALS: BP 96/68
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
== END 2018-07-29 16:40 | disposition home or self-care (01) ==
LOC: EC 14:12 → 3OBS 15:50
PROVIDERS: ADMIT Hospitalist; ATTEND Hospitalist
DX: R07.89 Other chest pain (principal); R11.2 Nausea with vomiting, unspecified; R19.7 Diarrhea, unspecified; I05.2 Rheumatic mitral stenosis with insufficiency; I11.0 Hypertensive heart disease with heart failure; I50.32 Chronic diastolic (congestive) heart failure; I25.10 Atherosclerotic heart disease of native coronary artery without angina pectoris; E78.5 Hyperlipidemia, unspecified; J44.9 Chronic obstructive pulmonary disease, unspecified; I27.29 Other secondary pulmonary hypertension; M79.7 Fibromyalgia; K21.9 Gastro-esophageal reflux disease without esophagitis; M25.511 Pain in right shoulder; M54.2 Cervicalgia; R51 Headache; M15.9 Polyosteoarthritis, unspecified; Z99.81 Dependence on supplemental oxygen; J96.11 Chronic respiratory failure with hypoxia; R53.1 Weakness; J98.6 Disorders of diaphragm; I69.992 Facial weakness following unspecified cerebrovascular disease; M47.812 Spondylosis without myelopathy or radiculopathy, cervical region; E89.0 Postprocedural hypothyroidism; G25.81 Restless legs syndrome; K44.9 Diaphragmatic hernia without obstruction or gangrene; N39.3 Stress incontinence (female) (male); I25.2 Old myocardial infarction; E66.9 Obesity, unspecified; Z68.30 Body mass index [BMI] 30.0-30.9, adult; F32.9 Major depressive disorder, single episode, unspecified; Z79.02 Long term (current) use of antithrombotics/antiplatelets; Z79.890 Hormone replacement therapy; Z79.891 Long term (current) use of opiate analgesic; Z79.899 Other long term (current) drug therapy; Z88.1 Allergy status to other antibiotic agents; Z88.2 Allergy status to sulfonamides; Z88.5 Allergy status to narcotic agent; Z88.8 Allergy status to other drugs, medicaments and biological substances; Z90.49 Acquired absence of other specified parts of digestive tract; Z90.89 Acquired absence of other organs; Z90.710 Acquired absence of both cervix and uterus; Z96.611 Presence of right artificial shoulder joint; Z87.891 Personal history of nicotine dependence; Z98.1 Arthrodesis status; Z98.42 Cataract extraction status, left eye; Z98.41 Cataract extraction status, right eye; Z96.651 Presence of right artificial knee joint; Z82.49 Family history of ischemic heart disease and other diseases of the circulatory system
CPT/HCPCS: 99285 ×2; 96374 ×2; 36415; 94640 ×3; 93005; 80061; 80053; 82550 ×2; 82553 ×2; 83735; 84484 ×2; 85025; 85610; 85730; 71046; G0378 ×2; J2405

== ENCOUNTER → 2018-08-29 | Outpatient (CLI) | payer MEDICARE ==
--- NOTE | 2018-08-29 22:42 | MR ---
MRI CERVICAL SPINE: CLINICAL HISTORY: Spondylosis, spondylolisthesis, and postlaminectomy syndrome per order. Headache wi th severe pain in neck and across shoulders with pain or weakness into both arms and fingers for gena ent. TECHNIQUE: Multiplanar, multisequence imaging of the cervical spine is performed without and with IV contrast, 8 cc of gadolinium was given intravenously. COMPARISON: MRI cervical spine December 10, 2014. Cervical spine x-ray June 23, 2018. FINDINGS: Exam noted suboptimal due to motion artifact degradation. Coronal images redemonstrate pers istent levoconvex scoliosis centered in the lower cervical spine. Sagittal images of the cervical spi ne show the craniocervical junction to remain within normal limits. The cervical and upper thoracic spinal cord is likely normal in caliber and signal. Some artifact from metallic hardware noted upper to mid cervical spine similar to prior. There is artifact from anterior fusion plate redemonstrated C 3-C5 levels. There is artifact from posterior fusion hardware and disc material in the lower cervical spine now identified. There is stable anterolisthesis of C5 on C6. No suspicious enhancement is seen . Axial images show C2-C3 level to remain within normal limits. Remainder axial levels are suboptimally evaluated due to significant artifact. There is persistent fernando ny projection near site of ossific fusion C3-C4 level axial image 35 not significantly changed from p rior. IMPRESSION: Suboptimal study, there is stable alignment noted. There is persistent levoconvex scolios is. There is persistent step-off or spondylolisthesis C5-C6 level without stable. Extensive postsurgi david changes redemonstrated. Other findings are noted as detailed above.
== END | disposition home or self-care (01) ==
LOC: RADMRIMAIN 12:05
PROVIDERS: ATTEND Physical Medicine & Rehabilitation
DX: M43.12 Spondylolisthesis, cervical region (principal); M41.82 Other forms of scoliosis, cervical region; Z98.1 Arthrodesis status
CPT/HCPCS: 72156; A9581

== ENCOUNTER 2018-09-17 15:54 | Inpatient (IN) | payer MEDICARE ==
[2018-09-17] MEDS ORDERED: ALBUTEROL NEBULIZED 2.5 MG/3 ML INHALATION STA (16:12)
[2018-09-17] MEDS ORDERED: methylPREDNISolone SOD SUCCI 125 MG/2 ML VIAL IV STA (16:12)
[2018-09-17] MEDS ORDERED: IPRATROPIUM 0.5 MG/2.5 ML NEBU INHALATION STA (16:12)
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
[2018-09-17 16:48] LABS: Basophils % (A) 0 %; Eosinophils # (A) 0.1 k/uL (0-0.7); Eosinophils % (A) 1 %; HCT 46.6 % (34.0-46.0); HGB 14.9 gm/dL (11.4-16.0); Lymphocytes # (A) 1.3 k/uL (1.0-4.8); Lymphocytes % (A) 19 %; MCH 30.2 pg (25.0-35.0); MCHC 31.9 g/dL (31.0-37.0); MCV 94.5 fL (80.0-100.0); Mean Platelet Volume 8.5; Monocytes # (A) 0.5 k/uL (0-1.0); Monocytes % (A) 8 %; Neutrophils # (A) 4.9 k/uL (1.3-7.7); Neutrophils % (A) 71 %; Platelet Count 135 k/uL (150-450); RBC 4.94 m/uL (3.80-5.40); RDW 13.6 % (11.5-15.5); WBC 6.8 k/uL (3.8-10.6)
[2018-09-17 16:58] LABS: Albumin 4.1 g/dL (3.5-5.0); Calcium 8.6 mg/dL (8.4-10.2); INR 1.1 (<1.2); Partial Thromboplastin Time 27.7 sec (22.0-30.0); Prothrombin Time 10.6 sec (9.0-12.0); Total Bilirubin 0.9 mg/dL (0.2-1.3); Total Protein 7.2 g/dL (6.3-8.2)
[2018-09-17 17:02] LABS: Magnesium 2.4 mg/dL (1.6-2.3)
[2018-09-17 17:10] LABS: Creatine Kinase 50 U/L (30-135)
[2018-09-17] MEDS ORDERED: AZITHROMYCIN 500 MG in SODIUM CHLORIDE 0.9% 250 ML IVPB STA (17:15)
[2018-09-17 17:22] LABS: Creatine Kinase MB 0.5 ng/mL (0.0-2.4); Troponin I <0.012 ng/mL (0.000-0.034)
--- NOTE | 2018-09-17 17:33 | XR ---
EXAMINATION TYPE: XR chest 2V DATE OF EXAM: 09/17/2018 COMPARISON: NONE HISTORY: Difficulty breathing TECHNIQUE: Frontal and lateral views of the chest are obtained. FINDINGS: There is no heart failure nor confluent pneumonic infiltrate. There is coarsening of the l montez markings. There are chest leads. There is right shoulder prosthesis. IMPRESSION: Pulmonary vascularity appears slightly increased compared to exam earlier today. There i s probably some pulmonary fibrosis. No pulmonary consolidation.
[2018-09-17] MEDS ORDERED: IPRATROPIUM-ALBUTEROL 3 ML NEB INHALATION PRN (17:56)
[2018-09-17] MEDS ORDERED: IPRATROPIUM-ALBUTEROL 3 ML NEB INHALATION SCH (20:00)
[2018-09-17] MEDS: PREGABALIN 50 MG CAP PO SCH (20:59)
[2018-09-17] MEDS: ATORVASTATIN 10 MG TAB PO SCH (20:59)
[2018-09-17] MEDS: DIPYRIDAMOLE-ASPIRIN 200-25 MG 1 EACH CPMP.12HR PO SCH ×2 (20:59→21:01)
[2018-09-17] MEDS: HYDROcodone/APAP 10-325MG 1 EACH TAB PO PRN (21:00)
[2018-09-17] MEDS: FUROSEMIDE 20 MG TAB PO SCH ×2 (21:00→23:12)
[2018-09-17] MEDS ORDERED: NALOXONE 0.4 MG/ML 1 ML VIAL IV PRN (21:08)
[2018-09-17] MEDS ORDERED: LACTULOSE 20 GM/30 ML CUP PO PRN (21:08)
[2018-09-17] MEDS ORDERED: MAGNESIUM HYDROXIDE 2,400 MG/10 ML CUP PO PRN (21:08)
[2018-09-17] MEDS ORDERED: CALCIUM CARBONATE 500 MG CHEWABLE PO PRN (21:08)
[2018-09-17] MEDS ORDERED: MELATONIN 3 MG TABLET PO PRN (21:08)
[2018-09-17] MEDS ORDERED: ACETAMINOPHEN TAB 325 MG TAB PO PRN (21:08)
[2018-09-17] MEDS: IPRATROPIUM-ALBUTEROL 3 ML NEB INHALATION SCH (21:19)
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
[2018-09-17] MEDS ORDERED: FUROSEMIDE 10 MG/ML 2 ML VIAL IV STA (23:20)
[2018-09-17] MEDS: methylPREDNISolone SOD SUCCI 40 MG/ML 1 ML VIAL IV SCH (23:46)
[2018-09-18] MEDS ORDERED: methylPREDNISolone SOD SUCCI 125 MG/2 ML VIAL IV SCH
[2018-09-18] MEDS: IPRATROPIUM-ALBUTEROL 3 ML NEB INHALATION SCH ×7 (00:28→23:21)
[2018-09-18] MEDS: HYDROcodone/APAP 10-325MG 1 EACH TAB PO PRN ×3 (03:15→19:58)
[2018-09-18] MEDS ORDERED: FUROSEMIDE 10 MG/ML 4 ML VIAL IV STA (05:59)
[2018-09-18] MEDS: LEVOTHYROXINE 112 MCG TAB PO SCH (06:17)
[2018-09-18] MEDS: FUROSEMIDE 20 MG TAB PO SCH ×3 (06:35→21:04)
--- NOTE | 2018-09-18 06:39 | XR ---
INDICATION: Shortness of breath COMPARISON: CXR 09/17/18 FINDINGS: Single frontal view of the chest is provided. There is stable mild cardiomegaly. Pulmonary vascularity appears normal. There is hazy opacity at the left lung base which may represent a small pleural effusion or epicardial or pleural fat. There is mild right basilar atelectasis. There is no pneumothorax. There are no acute osseous findings. There is a reverse right shoulder arthroplasty. IMPRESSION: 1. Hazy left basilar opacity may reflect a small effusion or epicardial or pleural fat. 2. Mild right basilar atelectasis.
[2018-09-18 08:28] LABS: Glucose,Whole Blood 202 mg/dL (75-99)
[2018-09-18] MEDS: methylPREDNISolone SOD SUCCI 40 MG/ML 1 ML VIAL IV SCH ×2 (08:33→16:07)
[2018-09-18] MEDS: PREGABALIN 50 MG CAP PO SCH ×3 (08:34→21:04)
[2018-09-18] MEDS: DIPYRIDAMOLE-ASPIRIN 200-25 MG 1 EACH CPMP.12HR PO SCH ×2 (08:40→20:10)
[2018-09-18] MEDS: MAGNESIUM OXIDE 400 MG TAB PO SCH (08:41)
[2018-09-18] MEDS: INSULIN ASPART 100 UNIT/ML 1 ML 10 ML VIAL SQ SCH ×4 (08:55→21:05)
[2018-09-18 11:41] LABS: Glucose,Whole Blood 138 mg/dL (75-99)
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
[2018-09-18] MEDS: AZITHROMYCIN 500 MG in SODIUM CHLORIDE 0.9% 250 ML IVPB SCH (12:17)
[2018-09-18] MEDS: diphenhydrAMINE 25 MG CAP PO PRN (16:07)
[2018-09-18] MEDS: ALPRAZolam 0.25 MG TAB PO PRN (16:07)
[2018-09-18 16:49] LABS: Glucose,Whole Blood 174 mg/dL (75-99)
[2018-09-18] MEDS: FORMOTEROL FUMARATE 20 MCG/2 ML NEBU INHALATION SCH (19:14)
[2018-09-18] MEDS: BUDESONIDE 1 MG/2 ML NEBU INHALATION SCH (19:14)
[2018-09-18 20:17] LABS: Glucose,Whole Blood 289 mg/dL (75-99)
[2018-09-18] MEDS: ATORVASTATIN 10 MG TAB PO SCH (21:04)
--- NOTE | 2018-09-18 22:25 | PN ---
PROGRESS NOTE DATE OF SERVICE: 09/18/2018 PRESENTING COMPLAINT: Short of breath, congestion. INTERVAL HISTORY: This patient with multiple medical problems presented with acute COPD exacerbation and pneumonia. More congested this morning, bringing up some sputum. Decreased appetite. Tired, rundown. No fever. No chills. REVIEW OF SYSTEMS: Done for constitutional, cardiovascular, GI, pulmonary; relevant findings as above. CURRENT MEDICATIONS: Reviewed. They include IV azithromycin, ceftriaxone, DuoNeb and IV Solu-Medrol. PHYSICAL EXAMINATION: Temperature 97.6, pulse 73, respiration 22, blood pressure 106/55, pulse ox 95% on 2 L. GENERAL APPEARANCE: Sitting up, tired-appearing, short of breath. EYES: Pupils equal. Conjunctivae normal. HEENT: External appearance of nose and ears normal. Oral cavity normal. NECK: JVD not raised. Mass not palpable. RESPIRATORY: Effort increased. LUNGS: Diminished breath sounds and prolonged expiration and wheezing. CARDIOVASCULAR: First and second sounds normal. No edema. ABDOMEN: Soft, non-tender. Liver and spleen not palpable. PSYCHIATRY: Alert and oriented x3. Mood and affect anxious-appearing. INVESTIGATIONS: Accu-Cheks are noted. ASSESSMENT: 1. Possible right lower lobe pneumonia. Suspect gram-negative organism, present on admission. 2. Acute chronic obstructive pulmonary disease exacerbation in a current smoker, slow to respond. 3. Chronic fibromyalgia. 4. Gastroesophageal reflux disease. 5. Hyperlipidemia. 6. Essential hypertension. 7. Hypothyroid. 8. Chronic hypoxic respiratory failure, on 2 L oxygen at home. 9. Chronic right diaphragm paralysis. 10.Moderate to severe mitral stenosis and severe mitral regurgitation, non-rheumatic. 11.Severe pulmonary osteoarthritis. 12.Chronic pain syndrome. 13.Restless legs syndrome. 14.History of cerebral aneurysm. 15.Chronic urinary incontinence, stress type. PLAN: Care was discussed with the patient. Continue current medication and treatment plan. Continue with IV Solu-Medrol, bronchodilators, antibiotics. Patient was seen by Pulmonary. Patient was reassured. MMODL / IJN: [id number] /
[2018-09-19] MEDS: methylPREDNISolone SOD SUCCI 40 MG/ML 1 ML VIAL IV SCH ×3 (00:42→16:07)
[2018-09-19] MEDS: IPRATROPIUM-ALBUTEROL 3 ML NEB INHALATION SCH ×6 (03:29→23:58)
[2018-09-19] MEDS: HYDROcodone/APAP 10-325MG 1 EACH TAB PO PRN ×2 (05:14→12:48)
[2018-09-19] MEDS: LEVOTHYROXINE 112 MCG TAB PO SCH (05:14)
[2018-09-19] MEDS: diphenhydrAMINE 25 MG CAP PO PRN ×2 (05:14→23:01)
[2018-09-19 06:53] LABS: Glucose,Whole Blood 191 mg/dL (75-99)
[2018-09-19] MEDS: BUDESONIDE 1 MG/2 ML NEBU INHALATION SCH ×2 (07:21→19:04)
[2018-09-19] MEDS: FORMOTEROL FUMARATE 20 MCG/2 ML NEBU INHALATION SCH ×2 (07:21→19:04)
[2018-09-19] MEDS: AZITHROMYCIN 500 MG in SODIUM CHLORIDE 0.9% 250 ML IVPB SCH (07:44)
[2018-09-19] MEDS: DIPYRIDAMOLE-ASPIRIN 200-25 MG 1 EACH CPMP.12HR PO SCH ×2 (07:44→21:54)
[2018-09-19] MEDS: FUROSEMIDE 20 MG TAB PO SCH ×2 (07:45→22:00)
[2018-09-19] MEDS: MAGNESIUM OXIDE 400 MG TAB PO SCH (07:46)
[2018-09-19] MEDS: PREGABALIN 50 MG CAP PO SCH ×3 (07:49→22:01)
[2018-09-19] MEDS: INSULIN ASPART 100 UNIT/ML 1 ML 10 ML VIAL SQ SCH ×4 (07:50→22:01)
[2018-09-19] MEDS: ONDANSETRON 4 MG/2 ML VIAL IVP PRN (08:23)
[2018-09-19 11:26] LABS: Glucose,Whole Blood 143 mg/dL (75-99)
--- NOTE | 2018-09-19 13:14 | P.PN ---
Subjective Progress Note Date: 09/19/18 Principal diagnosis: This is a 73-year-old white female patient of Dr. Ulrich, who was seen Dr. Cobos in the pulmonary office on 09/17/2018 UA patient of 2 day history of worsening cough, sweats, chills, production of dark brownish sputum, chest congestion. Chest x-ray was completed in the office, and showed bilateral pleural effusion, possible developing infiltrates versus atelectasis. Patient is also having some chest tightness which is worse with coughing. She has mild bilateral lower extremity edema. Denied any abdominal pain, nausea or vomiting. Her past medical history is significant for coronary artery disease, heart failure, COPD, previous history of CVA/TIA, fibromyalgia, GERD/reflux, hypertension, hyperlipidemia, previous episode of myocardial infarction, pneumonia, osteoarthritis, hypothyroidism. 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 Chest x-ray was repeated in the emergency department and showed concern for increased perivascular congestion. Troponin and BNP were within normal limits. Blood work was negative for any signs of leukocytosis, W BC was 6.8, hemoglobin is 14.9, electrolytes were fairly unremarkable, with evidence of chronic hypercapnic respiratory failure, BUN was 23 and creatinine was 0.83. Plasma lactic acid was 1.0, BNP was 313. Today's follow-up chest x-ray showed mild right basilar atelectasis, left basilar opacity that could reflect a small pleural effusion, atelectasis, or epicardial pleural fat. Patient has been afebrile overnight, she still sounds very congested, and bronchospastic. She still has the chills, headache, and persistent cough. She was started on empiric antibiotics in the form of Rocephin, she was given a dose of azithromycin in the emergency department, we will continue with the same. She was started on nebulized bronchodilators, and IV steroids. The patient is seen again today 09/19/2018 in follow-up on the regular medical floor. She is currently sitting up in bed. She is awake and alert in no acute distress. She is breathing easier today as compared to yesterday. Still maintaining good O2 saturations in the 90s on 2 L/m per nasal cannula. Her chest x-ray shows improvement. The cultures reveal no growth today. She has been maintained on DuoNeb inhalations, Pulmicort and Perforomist inhalations, IV Solu-Medrol. She remains on antibiotics in the form of ceftriaxone and azithromycin. Objective - Vital Signs Vital signs: Vital Signs Temp 97.5 F L 09/19/18 05:00 Pulse 96 09/19/18 11:20 Resp 16 09/19/18 05:00 BP 114/63 09/19/18 05:00 Pulse Ox 94 L 09/19/18 05:00 Intake & Output 09/18/18 09/19/18 09/19/18 18:59 06:59 18:59 Intake Total 250 740 Balance 250 740 Weight 78.925 kg 81.5 kg Intake: Intake, IV Titration 250 Amount Azithromycin 500 mg In 250 Sodium Chloride 0.9% 250 ml @ 250 mls/hr IVPB DAILY [facility] Rx#:[id number] Oral 740 Other: Voiding Method Bedside Commode Bedside Commode Diaper Diaper Diaper Incontinent # Voids 1 3 - Exam - Constitutional General appearance: no acute distress - EENT Eyes: EOMI ENT: NA/AT - Neck Neck: no lymphadenopathy, normal ROM Thyroid: bilateral: normal size - Respiratory Respiratory: bilateral: diminished, rhonchi, wheezing - Cardiovascular Rhythm: regular Heart sounds: normal: S1, S2 Abnormal Heart Sounds: systolic murmur ankle Peripheral Edema: bilateral: 1+ leg Peripheral Edema: bilateral: 1+ foot Peripheral Edema: bilateral: 1+ - Gastrointestinal General gastrointestinal: no organomegaly, soft, no tenderness - Integumentary Integumentary: normal turgor - Neurologic Neurologic: CNII-XII intact - Musculoskeletal Musculoskeletal: generalized weakness, strength equal bilaterally - Psychiatric Psychiatric: A&O x's 3, appropriate affect, intact judgment & insight - Labs CBC & Chem 7: 09/17/18 16:16 09/17/18 16:16 Labs: Abnormal Lab Results - Last 24 Hours (Table) 09/18/18 09/18/18 09/19/18 Range/Units 16:48 20:15 06:51 POC Glucose (mg/dL) 174 H 289 H 191 H (75-99) mg/dL 09/19/18 Range/Units 11:25 POC Glucose (mg/dL) 143 H (75-99) mg/dL Microbiology - Last 24 Hours (Table) 09/17/18 16:16 Blood Culture - Preliminary Blood No Growth after 24 hours Assessment and Plan Assessment: Assessment: #1. Acute exacerbation of chronic obstructive pulmonary disease with chronic hypercapnic and hypoxemic respiratory failure. And there is a component of fluid overload, was small bilateral pleural effusion, and atelectasis, and possible early developing infiltrates #2. Severe chronic obstructive pulmonary disease, with underlying FEV1 of 50% of predicted, GOLD stage III #3. History of coronary artery disease, previous episode of myocardial infarction #4. Hypertension, hyperlipidemia #5. 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 Chronic congestive heart failure, with previously documented preserved left ventricular systolic function. Valvular heart disease, with moderate mitral stenosis, and severe mitral regurgitation #7. Hypothyroidism #8. Previous episodes of pneumonia #9. Chronic neck and back pain, fibromyalgia #10. GERD/reflux, status post Gogo fundoplication #11. Osteoarthritis Plan: The patient was seen and evaluated by Dr. Faustin. She is improved today as compared to yesterday. We'll continue with the current treatment plan. We will increase her activity as tolerated. We'll continue to follow. I, the cosigning physician, performed a history & physical examination of the patient. Lungs sounds few scattered rhonchi, end expiratory wheeze, diminished. Maintaining good O2 saturations in the 90s on 2 L/m per nasal cannula. I discussed the assessment and plan of care with my nurse practitioner, Mary Cobos. I attest to the above note as dictated by her.
[2018-09-19 17:37] LABS: Glucose,Whole Blood 154 mg/dL (75-99)
--- NOTE | 2018-09-19 17:50 | PN ---
PROGRESS NOTE DATE OF SERVICE: 09/19/18 PRESENTING COMPLAINT: Short of breath, wheezing. INTERVAL HISTORY: This patient with multiple problems presented with acute chronic obstructive pulmonary disease exacerbation, pneumonia. Still congested wheezing, though eating better. Sitting up on bed. No fever. No chills. Has got a cough. REVIEW OF SYSTEMS: Done for constitutional, cardiovascular, GI, pulmonary; relevant findings as above. CURRENT MEDICATIONS: Reviewed that include DuoNeb, inhaled steroids, IV Solu-Medrol, IV ceftriaxone. PHYSICAL EXAMINATION: Temperature 97.9, pulse 104, respiration 18, blood pressure 105/56, pulse ox 94 percent on 2 L. GENERAL APPEARANCE: Sitting up, tired. EYES: Pupils equal. Conjunctivae normal. HEENT: External appearance of the nose and ears normal. Oral cavity normal. NECK: JVD not raised. Mass not palpable. RESPIRATORY: Effort increased. Lungs, decreased breath sounds, prolonged expiration wheezing. CARDIOVASCULAR: First and second sounds, no edema. ABDOMEN: Soft, nontender. Liver and spleen not palpable. PSYCHIATRY: Alert and oriented x3. Mood and affect a bit anxious-appearing. INVESTIGATIONS: Accu-Cheks are noted. ASSESSMENT: 1. Right lower lobe pneumonia suspect gram-negative organism, present on admission. 2. Acute chronic obstructive pulmonary disease exacerbation in a current smoker. 3. Chronic fibromyalgia. 4. Gastroesophageal reflux disease. 5. Hyperlipidemia. 6. Essential hypertension. 7. Hypothyroid. 8. Chronic hypoxic respiratory failure on 2 L oxygen at home. 9. Chronic right diaphragm paralysis. 10.Moderate to severe mitral stenosis and severe mitral regurgitation, nonrheumatic. 11.Severe pulmonary hypertension secondary to chronic obstructive pulmonary disease. 12.Chronic pain syndrome. 13.Restless legs syndrome. 14.History of cerebral aneurysm. 15.Chronic urinary incontinence, stress type. PLAN: Continue current medication and treatment plan. Care was discussed with the patient. Follow. MMODL / IJN: [id number] /
[2018-09-19 21:02] LABS: Glucose,Whole Blood 221 mg/dL (75-99)
[2018-09-19] MEDS: ATORVASTATIN 10 MG TAB PO SCH (22:00)
[2018-09-19] MEDS: POLYETHYLENE GLYCOL 3350 17 GM POWD.PACK PO SCH (22:00)
[2018-09-20] MEDS: methylPREDNISolone SOD SUCCI 40 MG/ML 1 ML VIAL IV SCH ×2 (00:01→07:35)
[2018-09-20] MEDS: guaiFENesin-Coden 100-10MG/5ML 10 ML CUP PO PRN ×3 (00:28→22:58)
[2018-09-20] MEDS: HYDROcodone/APAP 10-325MG 1 EACH TAB PO PRN ×3 (01:55→16:27)
[2018-09-20 02:00] LABS: Glucose,Whole Blood 131 mg/dL (75-99)
[2018-09-20] MEDS: IPRATROPIUM-ALBUTEROL 3 ML NEB INHALATION SCH ×6 (03:22→23:58)
[2018-09-20] MEDS: LEVOTHYROXINE 112 MCG TAB PO SCH (05:51)
[2018-09-20 07:01] LABS: Glucose,Whole Blood 142 mg/dL (75-99)
[2018-09-20] MEDS: PREGABALIN 50 MG CAP PO SCH ×3 (07:34→21:37)
[2018-09-20] MEDS: AZITHROMYCIN 500 MG in SODIUM CHLORIDE 0.9% 250 ML IVPB SCH (07:34)
[2018-09-20] MEDS: MAGNESIUM OXIDE 400 MG TAB PO SCH (07:36)
[2018-09-20] MEDS: FUROSEMIDE 20 MG TAB PO SCH ×2 (07:36→21:37)
[2018-09-20] MEDS: DIPYRIDAMOLE-ASPIRIN 200-25 MG 1 EACH CPMP.12HR PO SCH ×2 (07:36→19:17)
[2018-09-20] MEDS: INSULIN ASPART 100 UNIT/ML 1 ML 10 ML VIAL SQ SCH ×4 (07:37→21:09)
[2018-09-20] MEDS: ONDANSETRON 4 MG/2 ML VIAL IVP PRN (08:36)
[2018-09-20] MEDS: FORMOTEROL FUMARATE 20 MCG/2 ML NEBU INHALATION SCH ×2 (09:00→20:40)
[2018-09-20] MEDS: BUDESONIDE 1 MG/2 ML NEBU INHALATION SCH ×2 (09:00→20:40)
[2018-09-20 11:20] LABS: Glucose,Whole Blood 135 mg/dL (75-99)
--- NOTE | 2018-09-20 12:38 | XR ---
EXAMINATION TYPE: XR chest 1V portable DATE OF EXAM: 09/20/2018 HISTORY: sob. REFERENCE: Previous study dated 09/18/2018. FINDINGS: There is a right shoulder arthroplasty in place. Left basilar hazy opacity persists, unchanged from previous. The heart remains mildly enlarged. I melly pect small, bilateral effusions. IMPRESSION: NO SIGNIFICANT INTERVAL CHANGE IN THE APPEARANCE OF THE CHEST.
--- NOTE | 2018-09-20 12:58 | P.PN ---
Subjective Progress Note Date: 09/20/18 Principal diagnosis: Acute exacerbation of chronic obstructive pulmonary disease with chronic hypercapnic and hypoxemic respiratory failure, a component of fluid overload This is a 73-year-old white female patient of Dr. Ulrich, who was seen Dr. Cobos in the pulmonary office on 09/17/2018 UA patient of 2 day history of worsening cough, sweats, chills, production of dark brownish sputum, chest congestion. Chest x-ray was completed in the office, and showed bilateral pleural effusion, possible developing infiltrates versus atelectasis. Patient is also having some chest tightness which is worse with coughing. She has mild bilateral lower extremity edema. Denied any abdominal pain, nausea or vomiting. Her past medical history is significant for coronary artery disease, heart failure, COPD, previous history of CVA/TIA, fibromyalgia, GERD/reflux, hypertension, hyperlipidemia, previous episode of myocardial infarction, pneumonia, osteoarthritis, hypothyroidism. 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 Chest x-ray was repeated in the emergency department and showed concern for increased perivascular congestion. Troponin and BNP were within normal limits. Blood work was negative for any signs of leukocytosis, W BC was 6.8, hemoglobin is 14.9, electrolytes were fairly unremarkable, with evidence of chronic hypercapnic respiratory failure, BUN was 23 and creatinine was 0.83. Plasma lactic acid was 1.0, BNP was 313. Today's follow-up chest x-ray showed mild right basilar atelectasis, left basilar opacity that could reflect a small pleural effusion, atelectasis, or epicardial pleural fat. Patient has been afebrile overnight, she still sounds very congested, and bronchospastic. She still has the chills, headache, and persistent cough. She was started on empiric antibiotics in the form of Rocephin, she was given a dose of azithromycin in the emergency department, we will continue with the same. She was started on nebulized bronchodilators, and IV steroids. On 09/20/2018 patient seen in follow-up on medical surgical floor. She states her breathing has not much improved, but to bring up some thick tenacious, yellow flores colored sputum. Lung sounds are still positive for diffuse wheezes, and some scattered rhonchi, repeat chest x-ray was taken and showed no significant interval change in the appearance of the chest since that admission , no acute process, no clear-cut evidence of pneumonia or heart failure. Patient is afebrile. Cultures remain negative, patient is on IV steroids, empiric antibiotics in the form of Zithromax and Rocephin, oral Lasix, and pulmicort and Perforomist. Objective - Vital Signs Vital signs: Vital Signs Temp 97.7 F 09/20/18 04:47 Pulse 96 09/20/18 09:42 Resp 22 09/20/18 08:00 BP 105/68 09/20/18 04:47 Pulse Ox 96 09/20/18 04:47 Intake & Output 09/19/18 09/20/18 09/20/18 19:59 06:59 18:59 Intake Total Balance Weight Intake: Intake, IV Titration Amount Azithromycin 500 mg In Sodium Chloride 0.9% 250 ml @ 250 mls/hr IVPB DAILY [facility] Rx#:[id number] Oral Other: Voiding Method Incontinent # Voids - Exam - Constitutional General appearance: no acute distress - EENT Eyes: EOMI ENT: NA/AT - Neck Neck: no lymphadenopathy, normal ROM Thyroid: bilateral: normal size - Respiratory Respiratory: bilateral: diminished, rhonchi, wheezing - Cardiovascular Rhythm: regular Heart sounds: normal: S1, S2 Abnormal Heart Sounds: systolic murmur ankle Peripheral Edema: bilateral: 1+ leg Peripheral Edema: bilateral: 1+ foot Peripheral Edema: bilateral: 1+ - Gastrointestinal General gastrointestinal: no organomegaly, soft, no tenderness - Integumentary Integumentary: normal turgor - Neurologic Neurologic: CNII-XII intact - Musculoskeletal Musculoskeletal: generalized weakness, strength equal bilaterally - Psychiatric Psychiatric: A&O x's 3, appropriate affect, intact judgment & insight - Labs CBC & Chem 7: 09/17/18 16:16 09/17/18 16:16 Labs: Abnormal Lab Results - Last 24 Hours (Table) 09/19/18 09/19/18 09/20/18 Range/Units 17:35 21:00 01:38 EST POC Glucose (mg/dL) 154 H 221 H 131 H (75-99) mg/dL 09/20/18 09/20/18 Range/Units 07:00 11:19 POC Glucose (mg/dL) 142 H 135 H (75-99) mg/dL Microbiology - Last 24 Hours (Table) 09/17/18 16:16 Blood Culture - Preliminary Blood No Growth after 48 hours Assessment and Plan Plan: Assessment: #1. Acute exacerbation of chronic obstructive pulmonary disease with chronic hypercapnic and hypoxemic respiratory failure. And there is a component of fluid overload, was small bilateral pleural effusion, and atelectasis, and possible early developing infiltrates #2. Severe chronic obstructive pulmonary disease, with underlying FEV1 of 50% of predicted, GOLD stage III #3. History of coronary artery disease, previous episode of myocardial infarction #4. Hypertension, hyperlipidemia #5. 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 Chronic congestive heart failure, with previously documented preserved left ventricular systolic function. Valvular heart disease, with moderate mitral stenosis, and severe mitral regurgitation #7. Hypothyroidism #8. Previous episodes of pneumonia #9. Chronic neck and back pain, fibromyalgia #10. GERD/reflux, status post Gogo fundoplication #11. Osteoarthritis Plan: Today's chest x-ray has been reviewed, did not show any acute pulmonary findings , no clear-cut evidence of pneumonia, or congestive heart failure, we'll continue with the same biotic coverage, we will increase the dose of Solu- Medrol to 60 mg every 6 hours, continue Pulmicort and Perforomist, continue DuoNeb, patient is afebrile, remains bronchospastic, and congested, may consider bronchoscopy early next week if no further improvement. I performed a history & physical examination of the patient and discussed their management with my nurse practitioner, Rhonda Go. I reviewed the nurse practitioner's note and agree with the documented findings and plan of care. Lung sounds are positive for diffuse wheezes, rhonchi, rales. The findings and the impression was discussed with the patient. I attest to the documentation by the nurse practitioner. Time with Patient: Less than 30
[2018-09-20 17:09] LABS: Glucose,Whole Blood 162 mg/dL (75-99)
[2018-09-20] MEDS: methylPREDNISolone SOD SUCCI 125 MG/2 ML VIAL IV SCH ×2 (17:34→23:22)
[2018-09-20 20:22] LABS: Glucose,Whole Blood 120 mg/dL (75-99)
[2018-09-20] MEDS: ATORVASTATIN 10 MG TAB PO SCH (21:36)
[2018-09-20] MEDS: POLYETHYLENE GLYCOL 3350 17 GM POWD.PACK PO SCH (21:37)
--- NOTE | 2018-09-20 21:42 | PN ---
PROGRESS NOTE DATE OF SERVICE: 09/20/2018. PRESENTING COMPLAINT: Short of breath, wheezing and cough. INTERVAL HISTORY: This patient presented with acute chronic obstructive pulmonary disease exacerbation, pneumonia. Still having bouts of coughing, wheezing. Tolerating a diet. Did have a bowel movement. Short of breath still present. No fever. No chills. REVIEW OF SYSTEMS: Done for constitutional, cardiovascular, GI, pulmonary. CURRENT MEDICATIONS: Reviewed that include DuoNeb, azithromycin, IV ceftriaxone, IV Solu-Medrol 60 q.6h. EXAMINATION: Temperature 98.1, pulse 96, respiration 20, blood pressure 115/60. Pulse ox 96% on nasal cannula. GENERAL APPEARANCE: Sitting up, tired appearing. EYES: Pupils are equal. Conjunctivae normal. HEENT: External appearance of nose and ears normal. Oral cavity normal. NECK: JVD not raised. Mass not palpable. RESPIRATORY: Effort decreased. LUNGS: Decreased breath sounds. Prolonged expiration. Wheezing. CARDIOVASCULAR: First and second sounds normal. No edema. ABDOMEN: Soft, nontender. Liver and spleen not palpable. PSYCHIATRY: Alert and oriented x3. Mood and affect anxious-appearing. INVESTIGATIONS: Accu-Cheks are noted. ASSESSMENT: 1. Right lobe pneumonia suspect gram-negative organism present on admission. 2. Acute chronic obstructive pulmonary disease exacerbation in a current smoker. 3. Chronic fibromyalgia. 4. Gastroesophageal reflux disease. 5. Hyperlipidemia. 6. Essential hypertension. 7. Hypothyroid. 8. Chronic hypoxic respiratory failure on 2 L oxygen at home. 9. Right diaphragm paralysis. 10.Moderate to severe mitral stenosis and severe mitral regurgitation, nonrheumatic. 11.Severe pulmonary hypertension secondary to chronic obstructive pulmonary disease. 12.Chronic pain syndrome. 13.Restless legs syndrome. 14.History of cerebral aneurysm. 15.Chronic urinary stress incontinence. PLAN: Continue current medication and treatment plan. The patient remains on IV Solu-Medrol, bronchodilators, antibiotics. Care was discussed with the patient. MMODL / IJN: [id number] /
[2018-09-21] MEDS: diphenhydrAMINE 25 MG CAP PO PRN ×2 (00:12→23:10)
[2018-09-21] MEDS: IPRATROPIUM-ALBUTEROL 3 ML NEB INHALATION SCH ×5 (04:08→19:40)
[2018-09-21] MEDS: methylPREDNISolone SOD SUCCI 125 MG/2 ML VIAL IV SCH ×3 (05:00→17:45)
[2018-09-21] MEDS: LEVOTHYROXINE 112 MCG TAB PO SCH (05:00)
[2018-09-21 07:12] LABS: Glucose,Whole Blood 215 mg/dL (75-99)
[2018-09-21] MEDS: INSULIN ASPART 100 UNIT/ML 1 ML 10 ML VIAL SQ SCH ×4 (08:02→21:13)
[2018-09-21] MEDS: DIPYRIDAMOLE-ASPIRIN 200-25 MG 1 EACH CPMP.12HR PO SCH ×2 (08:04→20:33)
[2018-09-21] MEDS: AZITHROMYCIN 500 MG in SODIUM CHLORIDE 0.9% 250 ML IVPB SCH (08:10)
[2018-09-21] MEDS: BUDESONIDE 1 MG/2 ML NEBU INHALATION SCH ×2 (08:12→19:40)
[2018-09-21] MEDS: FORMOTEROL FUMARATE 20 MCG/2 ML NEBU INHALATION SCH ×2 (08:12→19:40)
[2018-09-21] MEDS: MAGNESIUM OXIDE 400 MG TAB PO SCH (08:20)
[2018-09-21] MEDS: FUROSEMIDE 20 MG TAB PO SCH ×2 (08:20→21:13)
[2018-09-21] MEDS: PREGABALIN 50 MG CAP PO SCH ×3 (08:24→21:13)
[2018-09-21] MEDS: HYDROcodone/APAP 10-325MG 1 EACH TAB PO PRN ×3 (08:30→23:10)
[2018-09-21 08:54] LABS: Basophils % (A) 0 %; Eosinophils % (A) 0 %; HCT 41.8 % (34.0-46.0); Lymphocytes # (A) 0.4 k/uL (1.0-4.8); Lymphocytes % (A) 5 %; MCH 29.5 pg (25.0-35.0); MCHC 31.2 g/dL (31.0-37.0); MCV 94.4 fL (80.0-100.0); Mean Platelet Volume 9.1; Monocytes # (A) 0.2 k/uL (0-1.0); Monocytes % (A) 3 %; Neutrophils # (A) 6.7 k/uL (1.3-7.7); Neutrophils % (A) 91 %; Platelet Count 125 k/uL (150-450); RBC 4.42 m/uL (3.80-5.40); RDW 13.4 % (11.5-15.5); WBC 7.3 k/uL (3.8-10.6)
[2018-09-21 09:04] LABS: Calcium 8.7 mg/dL (8.4-10.2); Potassium 4.3 mmol/L (3.5-5.1)
[2018-09-21 11:51] LABS: Glucose,Whole Blood 108 mg/dL (75-99)
[2018-09-21] MEDS ORDERED: MAGNESIUM CITRATE 296 ML BOTTLE PO ONE (13:16)
--- NOTE | 2018-09-21 13:28 | P.PN ---
Subjective Progress Note Date: 09/21/18 Principal diagnosis: Acute exacerbation of chronic obstructive pulmonary disease with chronic hypercapnic and hypoxemic respiratory failure, a component of fluid overload This is a 73-year-old white female patient of Dr. Ulrich, who was seen Dr. Cobos in the pulmonary office on 09/17/2018 UA patient of 2 day history of worsening cough, sweats, chills, production of dark brownish sputum, chest congestion. Chest x-ray was completed in the office, and showed bilateral pleural effusion, possible developing infiltrates versus atelectasis. Patient is also having some chest tightness which is worse with coughing. She has mild bilateral lower extremity edema. Denied any abdominal pain, nausea or vomiting. Her past medical history is significant for coronary artery disease, heart failure, COPD, previous history of CVA/TIA, fibromyalgia, GERD/reflux, hypertension, hyperlipidemia, previous episode of myocardial infarction, pneumonia, osteoarthritis, hypothyroidism. 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 Chest x-ray was repeated in the emergency department and showed concern for increased perivascular congestion. Troponin and BNP were within normal limits. Blood work was negative for any signs of leukocytosis, W BC was 6.8, hemoglobin is 14.9, electrolytes were fairly unremarkable, with evidence of chronic hypercapnic respiratory failure, BUN was 23 and creatinine was 0.83. Plasma lactic acid was 1.0, BNP was 313. Today's follow-up chest x-ray showed mild right basilar atelectasis, left basilar opacity that could reflect a small pleural effusion, atelectasis, or epicardial pleural fat. Patient has been afebrile overnight, she still sounds very congested, and bronchospastic. She still has the chills, headache, and persistent cough. She was started on empiric antibiotics in the form of Rocephin, she was given a dose of azithromycin in the emergency department, we will continue with the same. She was started on nebulized bronchodilators, and IV steroids. On 09/20/2018 patient seen in follow-up on medical surgical floor. She states her breathing has not much improved, but to bring up some thick tenacious, yellow flores colored sputum. Lung sounds are still positive for diffuse wheezes, and some scattered rhonchi, repeat chest x-ray was taken and showed no significant interval change in the appearance of the chest since that admission , no acute process, no clear-cut evidence of pneumonia or heart failure. Patient is afebrile. Cultures remain negative, patient is on IV steroids, empiric antibiotics in the form of Zithromax and Rocephin, oral Lasix, and pulmicort and Perforomist. On 09/2018 patient seen on medical surgical floor. She states her breathing is not much improved, despite the maximized medical treatment. Patient is on antibiotics, azithromycin and Rocephin, nebulized bronchodilators, IV steroids, yesterday we increased the dose of IV steroids to 60 g every 6 hours, lung sounds are positive for diffuse rhonchi, and wheezes. Currently on 2 L per nasal cannula the pulse ox of 95%, no fever, no chills, yesterday his chest x- ray did not show any acute process. CODE STATUS was discussed with the patient , and patient stated that he had to go on life-support it would be only for short-term, until her daughter got here from [place]. We also spoke to patient' s sister on the phone updated her on patient's condition, at this time proceeding with bronchoscopy would be risky, there would be high likelihood that patient would end up on life-support. We will continue with medical treatment. Objective - Vital Signs Vital signs: Vital Signs Temp 97.8 F 09/21/18 12:26 Pulse 93 09/21/18 12:26 Resp 18 09/21/18 12:26 BP 112/67 09/21/18 12:26 Pulse Ox 95 09/21/18 05:00 Intake & Output 09/20/18 09/21/18 09/21/18 18:59 06:59 18:59 Intake Total 1160 Balance 1160 Weight 82.5 kg 82 kg Intake: Oral 1160 Other: Voiding Method Bedside Commode Bedside Commode Bedside Commode Incontinent Incontinent Incontinent # Voids 3 1 - Exam - Constitutional General appearance: no acute distress - EENT Eyes: EOMI ENT: NA/AT - Neck Neck: no lymphadenopathy, normal ROM Thyroid: bilateral: normal size - Respiratory Respiratory: bilateral: diminished, rhonchi, wheezing - Cardiovascular Rhythm: regular Heart sounds: normal: S1, S2 Abnormal Heart Sounds: systolic murmur ankle Peripheral Edema: bilateral: 1+ leg Peripheral Edema: bilateral: 1+ foot Peripheral Edema: bilateral: 1+ - Gastrointestinal General gastrointestinal: no organomegaly, soft, no tenderness - Integumentary Integumentary: normal turgor - Neurologic Neurologic: CNII-XII intact - Musculoskeletal Musculoskeletal: generalized weakness, strength equal bilaterally - Psychiatric Psychiatric: A&O x's 3, appropriate affect, intact judgment & insight - Labs CBC & Chem 7: 09/21/18 08:22 09/21/18 08:22 Labs: Abnormal Lab Results - Last 24 Hours (Table) 09/20/18 09/20/18 09/21/18 Range/Units 17:09 20:20 07:11 Plt Count (150-450) k/uL Lymphocytes # (1.0-4.8) k/uL Chloride (98-107) mmol/L Carbon Dioxide (22-30) mmol/L BUN (7-17) mg/dL Glucose (74-99) mg/dL POC Glucose (mg/dL) 162 H 120 H 215 H (75-99) mg/dL 09/21/18 09/21/18 09/21/18 Range/Units 08:22 08:22 11:49 Plt Count 125 L (150-450) k/uL Lymphocytes # 0.4 L (1.0-4.8) k/uL Chloride 97 L (98-107) mmol/L Carbon Dioxide 35 H (22-30) mmol/L BUN 30 H (7-17) mg/dL Glucose 192 H (74-99) mg/dL POC Glucose (mg/dL) 108 H (75-99) mg/dL Microbiology - Last 24 Hours (Table) 09/17/18 16:16 Blood Culture - Preliminary Blood No Growth after 72 hours Assessment and Plan Plan: Assessment: #1. Acute exacerbation of chronic obstructive pulmonary disease with chronic hypercapnic and hypoxemic respiratory failure. And there is a component of fluid overload, was small bilateral pleural effusion, and atelectasis, and possible early developing infiltrates #2. Severe chronic obstructive pulmonary disease, with underlying FEV1 of 50% of predicted, GOLD stage III #3. History of coronary artery disease, previous episode of myocardial infarction #4. Hypertension, hyperlipidemia #5. 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 Chronic congestive heart failure, with previously documented preserved left ventricular systolic function. Valvular heart disease, with moderate mitral stenosis, and severe mitral regurgitation #7. Hypothyroidism #8. Previous episodes of pneumonia #9. Chronic neck and back pain, fibromyalgia #10. GERD/reflux, status post Gogo fundoplication #11. Osteoarthritis Plan: We'll continue with current medical treatment for now, IV steroids, nebulized bronchodilators, antibiotics, Pulmicort and Perforomist. Proceeding with bronchoscopy right now would be risky. CODE STATUS was discussed, she would agree to short-term life-support, absolutely necessary. Patient's sister was updated on the patient's progress. We'll continue with current medical treatment. I performed a history & physical examination of the patient and discussed their management with my nurse practitioner, Rhonda Go. I reviewed the nurse practitioner's note and agree with the documented findings and plan of care. Lung sounds are positive for diffuse wheezes, rhonchi. The findings and the impression was discussed with the patient. I attest to the documentation by the nurse practitioner. Time with Patient: Less than 30
[2018-09-21 16:48] LABS: Glucose,Whole Blood 150 mg/dL (75-99)
[2018-09-21 20:18] LABS: Glucose,Whole Blood 221 mg/dL (75-99)
[2018-09-21] MEDS: ATORVASTATIN 10 MG TAB PO SCH (21:12)
[2018-09-21] MEDS: POLYETHYLENE GLYCOL 3350 17 GM POWD.PACK PO SCH (21:13)
--- NOTE | 2018-09-21 21:40 | PN ---
PROGRESS NOTE DATE OF SERVICE: 09/21/2018. PRESENTING COMPLAINT: Short of breath. Wheezing. INTERVAL HISTORY: This patient presented with acute chronic obstructive pulmonary disease exacerbation, pneumonia. Cough is improved. Wheezing is getting better. Tolerating a diet. Does feel a bit tired and run down. No new issues. No fever. No chills. Sitting up on bed. Family at the bedside. REVIEW OF SYSTEMS: Done for constitutional, cardiovascular, GI, pulmonary, relevant findings as above. CURRENT MEDICATIONS: Reviewed that include DuoNeb, Zithromax, IV ceftriaxone, IV Solu-Medrol. PHYSICAL EXAMINATION: VITAL SIGNS: Temperature 97.8, pulse 93, respiratory 18, blood pressure 112/67, pulse ox noted. GENERAL APPEARANCE: Sitting up, tired. EYES: Pupils equal. Conjunctivae normal. HEENT: External appearance of nose and ears normal. Oral cavity normal. NECK: JVD not raised. Mass not palpable. RESPIRATORY: Effort increased. LUNGS: Decreased breath sounds. Prolonged expiration. Less wheezing. CARDIOVASCULAR: First and second sounds. No edema. ABDOMEN: Soft, nontender. Liver and spleen not palpable. PSYCHIATRY: Alert and oriented x3. Mood and affect a bit anxious-appearing. INVESTIGATIONS: White count 7.3, hemoglobin 13, potassium 4.3, BUN 30, creatinine 0.79. ASSESSMENT: 1. Right lobe pneumonia suspect gram-negative organism present on admission with clinical improvement. 2. Acute chronic obstructive pulmonary disease exacerbation in a current smoker, started to respond. 3. Chronic fibromyalgia. 4. Gastroesophageal reflux disease. 5. Hyperlipidemia. 6. Essential hypertension. 7. Hypothyroid. 8. Chronic hypoxic respiratory failure on 2 L oxygen at home. 9. Right diaphragm paralysis, chronic. 10.Moderate to severe mitral stenosis and severe mitral regurgitation, nonrheumatic. 11.Severe pulmonary hypertension secondary to chronic obstructive pulmonary disease. 12.Chronic pain syndrome. 13.Restless legs syndrome. 14.History of cerebral aneurysm. 15.Chronic urinary stress incontinence. PLAN: Continue current medication and treatment plan. Care was discussed with the patient. Remains on IV steroids and antibiotics. The patient is seen by Dr. Soto from Pulmonary today. He does not plan to do any bronchoscopy at the present time. MMODL / IJN: [id number] /
[2018-09-21] MEDS ORDERED: HYDROCORTISONE SUPPOSITORY 25 MG SUPP RECTAL STA (22:23)
[2018-09-22] MEDS: IPRATROPIUM-ALBUTEROL 3 ML NEB INHALATION SCH ×6 (00:01→19:50)
[2018-09-22] MEDS: methylPREDNISolone SOD SUCCI 125 MG/2 ML VIAL IV SCH ×5 (00:03→21:58)
[2018-09-22] MEDS: ALPRAZolam 0.25 MG TAB PO PRN (03:48)
[2018-09-22] MEDS: NITROGLYCERIN SL TABS 0.4 MG TAB SUBLINGUAL PRN (04:29)
[2018-09-22] MEDS: LEVOTHYROXINE 112 MCG TAB PO SCH (06:12)
[2018-09-22 06:54] LABS: Glucose,Whole Blood 150 mg/dL (75-99)
[2018-09-22] MEDS: INSULIN ASPART 100 UNIT/ML 1 ML 10 ML VIAL SQ SCH ×4 (08:12→21:57)
[2018-09-22] MEDS: DIPYRIDAMOLE-ASPIRIN 200-25 MG 1 EACH CPMP.12HR PO SCH ×2 (08:13→21:08)
[2018-09-22] MEDS: AZITHROMYCIN 500 MG TAB PO SCH (08:13)
[2018-09-22] MEDS: FUROSEMIDE 20 MG TAB PO SCH ×2 (08:14→21:57)
[2018-09-22] MEDS: MAGNESIUM OXIDE 400 MG TAB PO SCH (08:14)
[2018-09-22] MEDS: FORMOTEROL FUMARATE 20 MCG/2 ML NEBU INHALATION SCH ×2 (08:23→19:50)
[2018-09-22] MEDS: PSYLLIUM HUSK 100% 6 GM PACKET PO SCH ×2 (08:24→21:58)
[2018-09-22] MEDS: BUDESONIDE 1 MG/2 ML NEBU INHALATION SCH ×2 (08:24→19:50)
[2018-09-22] MEDS: PREGABALIN 50 MG CAP PO SCH ×3 (08:24→21:58)
[2018-09-22] MEDS: HYDROcodone/APAP 10-325MG 1 EACH TAB PO PRN ×3 (08:28→23:17)
[2018-09-22 09:27] LABS: Calcium 8.7 mg/dL (8.4-10.2); Potassium 4.8 mmol/L (3.5-5.1)
[2018-09-22 11:21] LABS: Glucose,Whole Blood 138 mg/dL (75-99)
--- NOTE | 2018-09-22 12:34 | P.PN ---
Subjective Progress Note Date: 09/22/18 Principal diagnosis: Acute exacerbation of chronic obstructive pulmonary disease with chronic hypercapnic and hypoxemic respiratory failure, a component of fluid overload This is a 73-year-old white female patient of Dr. Ulrich, who was seen Dr. Cobos in the pulmonary office on 09/17/2018 UA patient of 2 day history of worsening cough, sweats, chills, production of dark brownish sputum, chest congestion. Chest x-ray was completed in the office, and showed bilateral pleural effusion, possible developing infiltrates versus atelectasis. Patient is also having some chest tightness which is worse with coughing. She has mild bilateral lower extremity edema. Denied any abdominal pain, nausea or vomiting. Her past medical history is significant for coronary artery disease, heart failure, COPD, previous history of CVA/TIA, fibromyalgia, GERD/reflux, hypertension, hyperlipidemia, previous episode of myocardial infarction, pneumonia, osteoarthritis, hypothyroidism. 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 Chest x-ray was repeated in the emergency department and showed concern for increased perivascular congestion. Troponin and BNP were within normal limits. Blood work was negative for any signs of leukocytosis, W BC was 6.8, hemoglobin is 14.9, electrolytes were fairly unremarkable, with evidence of chronic hypercapnic respiratory failure, BUN was 23 and creatinine was 0.83. Plasma lactic acid was 1.0, BNP was 313. Today's follow-up chest x-ray showed mild right basilar atelectasis, left basilar opacity that could reflect a small pleural effusion, atelectasis, or epicardial pleural fat. Patient has been afebrile overnight, she still sounds very congested, and bronchospastic. She still has the chills, headache, and persistent cough. She was started on empiric antibiotics in the form of Rocephin, she was given a dose of azithromycin in the emergency department, we will continue with the same. She was started on nebulized bronchodilators, and IV steroids. On 09/20/2018 patient seen in follow-up on medical surgical floor. She states her breathing has not much improved, but to bring up some thick tenacious, yellow flores colored sputum. Lung sounds are still positive for diffuse wheezes, and some scattered rhonchi, repeat chest x-ray was taken and showed no significant interval change in the appearance of the chest since that admission , no acute process, no clear-cut evidence of pneumonia or heart failure. Patient is afebrile. Cultures remain negative, patient is on IV steroids, empiric antibiotics in the form of Zithromax and Rocephin, oral Lasix, and pulmicort and Perforomist. On 09/2018 patient seen on medical surgical floor. She states her breathing is not much improved, despite the maximized medical treatment. Patient is on antibiotics, azithromycin and Rocephin, nebulized bronchodilators, IV steroids, yesterday we increased the dose of IV steroids to 60 g every 6 hours, lung sounds are positive for diffuse rhonchi, and wheezes. Currently on 2 L per nasal cannula the pulse ox of 95%, no fever, no chills, yesterday his chest x- ray did not show any acute process. CODE STATUS was discussed with the patient , and patient stated that he had to go on life-support it would be only for short-term, until her daughter got here from [place]. We also spoke to patient' s sister on the phone updated her on patient's condition, at this time proceeding with bronchoscopy would be risky, there would be high likelihood that patient would end up on life-support. We will continue with medical treatment. On 09/22/2018 patient seen in follow-up on medical surgical floor. She is up ambulating with a walker. She states that she is not feeling any better, but physical exam reveals less congestion, only a few scattered rhonchi, no wheezing. No crackles. No fever, no chills patient is on 2 L per nasal cannula , her pulse ox is 94%. No coughing. The fact that the patient is up and ambulating is a positive, and the patient was encouraged to increase her activity, sit up and ambulate. Today's labs were reviewed, BMP shows sodium of 142, potassium is 4.8, chloride is 98, CO2 34, BUN of 33 and creatinine 0.85. No new chest x-ray, clinically patient is improving. Objective - Vital Signs Vital signs: Vital Signs Temp 98.7 F 09/22/18 11:58 Pulse 100 09/22/18 11:58 Resp 18 09/22/18 11:58 BP 101/58 09/22/18 11:58 Pulse Ox 94 L 09/22/18 05:00 Intake & Output 09/21/18 09/22/18 09/22/18 18:59 06:59 18:59 Intake Total 250 1400 Balance 250 1400 Weight 85.5 kg Intake: Intake, IV Titration 250 Amount Azithromycin 500 mg In 250 Sodium Chloride 0.9% 250 ml @ 250 mls/hr IVPB DAILY [facility] Rx#:[id number] Oral 1400 Other: Voiding Method Bedside Commode Bedside Commode Bedside Commode Incontinent Incontinent # Voids 1 # Bowel Movements 2 - Exam - Constitutional General appearance: no acute distress - EENT Eyes: EOMI ENT: NA/AT - Neck Neck: no lymphadenopathy, normal ROM Thyroid: bilateral: normal size - Respiratory Respiratory: bilateral: Better air entry noted bilaterally, with only a few scattered rhonchi, no wheezing noted on today's exam - Cardiovascular Rhythm: regular Heart sounds: normal: S1, S2 Abnormal Heart Sounds: systolic murmur ankle Peripheral Edema: bilateral: 1+ leg Peripheral Edema: bilateral: 1+ foot Peripheral Edema: bilateral: 1+ - Gastrointestinal General gastrointestinal: no organomegaly, soft, no tenderness - Integumentary Integumentary: normal turgor - Neurologic Neurologic: CNII-XII intact - Musculoskeletal Musculoskeletal: generalized weakness, strength equal bilaterally - Psychiatric Psychiatric: A&O x's 3, appropriate affect, intact judgment & insight - Labs CBC & Chem 7: 09/21/18 08:22 09/22/18 08:12 Labs: Abnormal Lab Results - Last 24 Hours (Table) 09/21/18 09/21/18 09/22/18 Range/Units 16:47 20:10 06:53 Carbon Dioxide (22-30) mmol/L BUN (7-17) mg/dL Glucose (74-99) mg/dL POC Glucose (mg/dL) 150 H 221 H 150 H (75-99) mg/dL 09/22/18 09/22/18 Range/Units 08:12 11:19 Carbon Dioxide 34 H (22-30) mmol/L BUN 33 H (7-17) mg/dL Glucose 147 H (74-99) mg/dL POC Glucose (mg/dL) 138 H (75-99) mg/dL Microbiology - Last 24 Hours (Table) 09/17/18 16:16 Blood Culture - Preliminary Blood No Growth after 96 hours Assessment and Plan Plan: Assessment: #1. Acute exacerbation of chronic obstructive pulmonary disease with chronic hypercapnic and hypoxemic respiratory failure. And there is a component of fluid overload, was small bilateral pleural effusion, and atelectasis, and possible early developing infiltrates #2. Severe chronic obstructive pulmonary disease, with underlying FEV1 of 50% of predicted, GOLD stage III #3. History of coronary artery disease, previous episode of myocardial infarction #4. Hypertension, hyperlipidemia #5. 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 Chronic congestive heart failure, with previously documented preserved left ventricular systolic function. Valvular heart disease, with moderate mitral stenosis, and severe mitral regurgitation #7. Hypothyroidism #8. Previous episodes of pneumonia #9. Chronic neck and back pain, fibromyalgia #10. GERD/reflux, status post Gogo fundoplication #11. Osteoarthritis Plan: Patient is looking and sounding better on today's exam. No fever, no chills, she was able to get up out of bed, ambulate with a walker, she looks fairly comfortable, no distress, vital signs are stable, no new chest x-ray, sounds less congested, no cough. No wheezing on today's exam. We'll continue current medical treatment, IV steroids, nebulized bronchodilators, oral Lasix, and Rocephin. Anticipate further improvement, and possible discharge home in the next couple of days I performed a history & physical examination of the patient and discussed their management with my nurse practitioner, Rhonda Go. I reviewed the nurse practitioner's note and agree with the documented findings and plan of care. Lung sounds are positive for only a few scattered rhonchi. The findings and the impression was discussed with the patient. I attest to the documentation by the nurse practitioner. Time with Patient: Less than 30
--- NOTE | 2018-09-22 12:39 | P.PN ---
Subjective Patient is admitted for COPD exacerbation is on high-dose systemic steroids inhalational treatments. Pulmonology is following the patient. Patient uses 2 L of onset at home now presently on 3 L of oxygen . Patient is not feeling better at all Constitutional: Denied any fatigue denied any fever. Cardio vascular: denied any chest pain, palpitations Gastrointestinal denied any nausea vomiting Pulmonary: As mentioned in HPI Neurologic denied any new focal deficits Objective - Vital Signs Vital signs: Vital Signs Temp 98.7 F 09/22/18 11:58 Pulse 100 09/22/18 11:58 Resp 18 09/22/18 11:58 BP 101/58 09/22/18 11:58 Pulse Ox 94 L 09/22/18 05:00 Intake & Output 09/21/18 09/22/18 09/22/18 18:59 06:59 18:59 Intake Total 250 1400 Balance 250 1400 Weight 85.5 kg Intake: Intake, IV Titration 250 Amount Azithromycin 500 mg In 250 Sodium Chloride 0.9% 250 ml @ 250 mls/hr IVPB DAILY [facility] Rx#:[id number] Oral 1400 Other: Voiding Method Bedside Commode Bedside Commode Bedside Commode Incontinent Incontinent # Voids 1 # Bowel Movements 2 - Exam PHYSICAL EXAMINATION: GENERAL: The patient is alert and oriented x3, not in any acute distress. Well developed, well nourished. HEENT: Pupils are round and equally reacting to light. EOMI. No scleral icterus. No conjunctival pallor. Normocephalic, atraumatic. No pharyngeal erythema. No thyromegaly. CARDIOVASCULAR: S1 and S2 present. No murmurs, rubs, or gallops. PULMONARY: Increased air entry with significant expiratory wheezing was appreciated. ABDOMEN: Soft, nontender, nondistended, normoactive bowel sounds. No palpable organomegaly. MUSCULOSKELETAL: No joint swelling or deformity. EXTREMITIES: No cyanosis, clubbing, or pedal edema. NEUROLOGICAL: Gross neurological examination did not reveal any focal deficits. SKIN: No rashes. - Labs CBC & Chem 7: 09/21/18 08:22 09/22/18 08:12 Labs: Abnormal Lab Results - Last 24 Hours (Table) 09/21/18 09/21/18 09/22/18 Range/Units 16:47 20:10 06:53 Carbon Dioxide (22-30) mmol/L BUN (7-17) mg/dL Glucose (74-99) mg/dL POC Glucose (mg/dL) 150 H 221 H 150 H (75-99) mg/dL 09/22/18 09/22/18 Range/Units 08:12 11:19 Carbon Dioxide 34 H (22-30) mmol/L BUN 33 H (7-17) mg/dL Glucose 147 H (74-99) mg/dL POC Glucose (mg/dL) 138 H (75-99) mg/dL Microbiology - Last 24 Hours (Table) 09/17/18 16:16 Blood Culture - Preliminary Blood No Growth after 96 hours Assessment and Plan Plan: Acute on chronic hypercapnic respiratory failure secondary to COPD exacerbation patient is on systemic steroids and initial treatments which will be continued pulmonology is following the patient -Severe COPD cold stage III uses 2 response went home -Coronary artery disease -Hypertension -Right-sided elba-diaphragmatic paralysis secondary to her for CVA in the past -Chronic congestive heart failure chronic diastolic dysfunction mild acute exacerbation presently fairly euvolemic patient has while valvular heart disease with mitral stenosis and mitral regurgitation -Hypothyroidism -Fibromyalgia -Is within reflux disease -Osteoarthritis
[2018-09-22 16:27] LABS: Glucose,Whole Blood 209 mg/dL (75-99)
[2018-09-22 20:34] LABS: Glucose,Whole Blood 185 mg/dL (75-99)
[2018-09-22] MEDS: ATORVASTATIN 10 MG TAB PO SCH (21:57)
[2018-09-22] MEDS: diphenhydrAMINE 25 MG CAP PO PRN (23:17)
[2018-09-23] MEDS: IPRATROPIUM-ALBUTEROL 3 ML NEB INHALATION SCH ×6 (00:10→19:27)
[2018-09-23] MEDS: methylPREDNISolone SOD SUCCI 125 MG/2 ML VIAL IV SCH ×4 (03:16→21:54)
[2018-09-23] MEDS: LEVOTHYROXINE 112 MCG TAB PO SCH (05:44)
[2018-09-23] MEDS: HYDROcodone/APAP 10-325MG 1 EACH TAB PO PRN ×2 (05:46→21:37)
[2018-09-23] MEDS: NITROGLYCERIN SL TABS 0.4 MG TAB SUBLINGUAL PRN ×3 (06:21→07:34)
[2018-09-23 07:08] LABS: Glucose,Whole Blood 221 mg/dL (75-99)
[2018-09-23] MEDS: BUDESONIDE 1 MG/2 ML NEBU INHALATION SCH ×2 (07:12→19:25)
[2018-09-23] MEDS: FORMOTEROL FUMARATE 20 MCG/2 ML NEBU INHALATION SCH ×2 (07:12→19:25)
[2018-09-23] MEDS: ALPRAZolam 0.25 MG TAB PO PRN (07:36)
[2018-09-23] MEDS: INSULIN ASPART 100 UNIT/ML 1 ML 10 ML VIAL SQ SCH ×4 (07:55→21:58)
[2018-09-23 08:13] LABS: Calcium 8.3 mg/dL (8.4-10.2); Potassium 4.7 mmol/L (3.5-5.1)
[2018-09-23] MEDS: AZITHROMYCIN 500 MG TAB PO SCH (10:00)
[2018-09-23] MEDS: FUROSEMIDE 20 MG TAB PO SCH ×2 (10:01→21:54)
[2018-09-23] MEDS: MAGNESIUM OXIDE 400 MG TAB PO SCH (10:02)
[2018-09-23] MEDS: PREGABALIN 50 MG CAP PO SCH ×3 (10:06→21:55)
[2018-09-23] MEDS: ONDANSETRON 4 MG/2 ML VIAL IVP PRN (10:20)
[2018-09-23 10:59] LABS: Glucose,Whole Blood 100 mg/dL (75-99)
[2018-09-23] MEDS: PSYLLIUM HUSK 100% 6 GM PACKET PO SCH ×3 (11:41→23:53)
[2018-09-23] MEDS: DIPYRIDAMOLE-ASPIRIN 200-25 MG 1 EACH CPMP.12HR PO SCH ×2 (11:44→21:55)
--- NOTE | 2018-09-23 14:29 | P.PN ---
Subjective Progress Note Date: 09/23/18 Principal diagnosis: Acute exacerbation of chronic obstructive pulmonary disease with chronic hypercapnic and hypoxemic respiratory failure, a component of fluid overload This is a 73-year-old white female patient of Dr. Ulrich, who was seen Dr. Cobos in the pulmonary office on 09/17/2018 UA patient of 2 day history of worsening cough, sweats, chills, production of dark brownish sputum, chest congestion. Chest x-ray was completed in the office, and showed bilateral pleural effusion, possible developing infiltrates versus atelectasis. Patient is also having some chest tightness which is worse with coughing. She has mild bilateral lower extremity edema. Denied any abdominal pain, nausea or vomiting. Her past medical history is significant for coronary artery disease, heart failure, COPD, previous history of CVA/TIA, fibromyalgia, GERD/reflux, hypertension, hyperlipidemia, previous episode of myocardial infarction, pneumonia, osteoarthritis, hypothyroidism. 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 Chest x-ray was repeated in the emergency department and showed concern for increased perivascular congestion. Troponin and BNP were within normal limits. Blood work was negative for any signs of leukocytosis, W BC was 6.8, hemoglobin is 14.9, electrolytes were fairly unremarkable, with evidence of chronic hypercapnic respiratory failure, BUN was 23 and creatinine was 0.83. Plasma lactic acid was 1.0, BNP was 313. Today's follow-up chest x-ray showed mild right basilar atelectasis, left basilar opacity that could reflect a small pleural effusion, atelectasis, or epicardial pleural fat. Patient has been afebrile overnight, she still sounds very congested, and bronchospastic. She still has the chills, headache, and persistent cough. She was started on empiric antibiotics in the form of Rocephin, she was given a dose of azithromycin in the emergency department, we will continue with the same. She was started on nebulized bronchodilators, and IV steroids. On 09/20/2018 patient seen in follow-up on medical surgical floor. She states her breathing has not much improved, but to bring up some thick tenacious, yellow flores colored sputum. Lung sounds are still positive for diffuse wheezes, and some scattered rhonchi, repeat chest x-ray was taken and showed no significant interval change in the appearance of the chest since that admission , no acute process, no clear-cut evidence of pneumonia or heart failure. Patient is afebrile. Cultures remain negative, patient is on IV steroids, empiric antibiotics in the form of Zithromax and Rocephin, oral Lasix, and pulmicort and Perforomist. On 09/2018 patient seen on medical surgical floor. She states her breathing is not much improved, despite the maximized medical treatment. Patient is on antibiotics, azithromycin and Rocephin, nebulized bronchodilators, IV steroids, yesterday we increased the dose of IV steroids to 60 g every 6 hours, lung sounds are positive for diffuse rhonchi, and wheezes. Currently on 2 L per nasal cannula the pulse ox of 95%, no fever, no chills, yesterday his chest x- ray did not show any acute process. CODE STATUS was discussed with the patient , and patient stated that he had to go on life-support it would be only for short-term, until her daughter got here from [place]. We also spoke to patient' s sister on the phone updated her on patient's condition, at this time proceeding with bronchoscopy would be risky, there would be high likelihood that patient would end up on life-support. We will continue with medical treatment. On 09/22/2018 patient seen in follow-up on medical surgical floor. She is up ambulating with a walker. She states that she is not feeling any better, but physical exam reveals less congestion, only a few scattered rhonchi, no wheezing. No crackles. No fever, no chills patient is on 2 L per nasal cannula , her pulse ox is 94%. No coughing. The fact that the patient is up and ambulating is a positive, and the patient was encouraged to increase her activity, sit up and ambulate. Today's labs were reviewed, BMP shows sodium of 142, potassium is 4.8, chloride is 98, CO2 34, BUN of 33 and creatinine 0.85. No new chest x-ray, clinically patient is improving. On 09/23/2018 patient seen in follow-up on medical surgical floor. Patient is in much better spirits today. She states her breathing is improving, less short of breath, less congestion. No coughing, no fever no chills. Patient has been getting up and ambulating with a walker, she is feeling better today. No chest x-rays today, today's labs have been reviewed, and is unremarkable, troponin was negative 1. Blood cultures remain negative, we were unable to collect a sputum culture, patient has been treated with empiric antibiotics in the form of Zithromax and Rocephin, IV steroids, and she is responding to treatments. Objective - Vital Signs Vital signs: Vital Signs Temp 97.9 F 09/23/18 12:08 Pulse 96 09/23/18 12:08 Resp 20 09/23/18 12:08 BP 112/62 09/23/18 12:08 Pulse Ox 98 09/23/18 12:08 Intake & Output 09/22/18 09/23/18 09/23/18 18:59 06:59 18:59 Intake Total 1400 Balance 1400 Weight 89.5 kg Intake: Intake, IV Titration 100 Amount cefTRIAXone 1,000 mg In 100 Sodium Chloride 0.9% 50 ml @ 100 mls/hr IVPB Q24H [facility] Rx#:[id number] Oral 1300 Other: Voiding Method Bedside Commode Bedside Commode Bedside Commode Diaper Diaper Incontinent Incontinent # Voids 1 2 # Bowel Movements 1 - Exam - Constitutional General appearance: no acute distress - EENT Eyes: EOMI ENT: NA/AT - Neck Neck: no lymphadenopathy, normal ROM Thyroid: bilateral: normal size - Respiratory Respiratory: bilateral: Better air entry noted bilaterally, with only a few scattered rhonchi, no wheezing noted on today's exam - Cardiovascular Rhythm: regular Heart sounds: normal: S1, S2 Abnormal Heart Sounds: systolic murmur ankle Peripheral Edema: bilateral: 1+ leg Peripheral Edema: bilateral: 1+ foot Peripheral Edema: bilateral: 1+ - Gastrointestinal General gastrointestinal: no organomegaly, soft, no tenderness - Integumentary Integumentary: normal turgor - Neurologic Neurologic: CNII-XII intact - Musculoskeletal Musculoskeletal: generalized weakness, strength equal bilaterally - Psychiatric Psychiatric: A&O x's 3, appropriate affect, intact judgment & insight - Labs CBC & Chem 7: 09/21/18 08:22 09/23/18 07:00 Labs: Abnormal Lab Results - Last 24 Hours (Table) 09/22/18 09/22/18 09/23/18 Range/Units 16:26 20:32 07:00 Carbon Dioxide 33 H (22-30) mmol/L BUN 30 H (7-17) mg/dL Glucose 218 H (74-99) mg/dL POC Glucose (mg/dL) 209 H 185 H (75-99) mg/dL Calcium 8.3 L (8.4-10.2) mg/dL 09/23/18 09/23/18 Range/Units 07:06 10:57 Carbon Dioxide (22-30) mmol/L BUN (7-17) mg/dL Glucose (74-99) mg/dL POC Glucose (mg/dL) 221 H 100 H (75-99) mg/dL Calcium (8.4-10.2) mg/dL Microbiology - Last 24 Hours (Table) 09/17/18 16:16 Blood Culture - Preliminary Blood No Growth after 120 hours Assessment and Plan Plan: Assessment: #1. Acute exacerbation of chronic obstructive pulmonary disease with chronic hypercapnic and hypoxemic respiratory failure. And there is a component of fluid overload, was small bilateral pleural effusion, and atelectasis, and possible early developing infiltrates #2. Severe chronic obstructive pulmonary disease, with underlying FEV1 of 50% of predicted, GOLD stage III #3. History of coronary artery disease, previous episode of myocardial infarction #4. Hypertension, hyperlipidemia #5. 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 Chronic congestive heart failure, with previously documented preserved left ventricular systolic function. Valvular heart disease, with moderate mitral stenosis, and severe mitral regurgitation #7. Hypothyroidism #8. Previous episodes of pneumonia #9. Chronic neck and back pain, fibromyalgia #10. GERD/reflux, status post Gogo fundoplication #11. Osteoarthritis Plan: Patient is improving, reports breathing is easier, no cough, no phlegm production, no wheezes. She has been up ambulating with a walker, she is in much better spirits today. Blood culture remains negative, patient is on Zithromax and Rocephin for empiric coverage, she has been treated with systemic steroids, nebulized bronchodilator, and she is improving, from pulmonary perspective patient could be considered for discharge home today. I performed a history & physical examination of the patient and discussed their management with my nurse practitioner, Rhonda Go. I reviewed the nurse practitioner's note and agree with the documented findings and plan of care. Lung sounds are positive for only a few scattered rhonchi. The findings and the impression was discussed with the patient. I attest to the documentation by the nurse practitioner. Time with Patient: Less than 30
[2018-09-23 17:16] LABS: Glucose,Whole Blood 164 mg/dL (75-99)
[2018-09-23 20:57] LABS: Glucose,Whole Blood 203 mg/dL (75-99)
[2018-09-23] MEDS: guaiFENesin-Coden 100-10MG/5ML 10 ML CUP PO PRN (21:37)
[2018-09-23] MEDS: ATORVASTATIN 10 MG TAB PO SCH (21:55)
[2018-09-24] MEDS: IPRATROPIUM-ALBUTEROL 3 ML NEB INHALATION SCH ×4 (00:38→10:42)
[2018-09-24] MEDS: methylPREDNISolone SOD SUCCI 125 MG/2 ML VIAL IV SCH ×2 (03:58→07:56)
[2018-09-24] MEDS: LEVOTHYROXINE 112 MCG TAB PO SCH (06:17)
[2018-09-24] MEDS: diphenhydrAMINE 25 MG CAP PO PRN (06:21)
[2018-09-24] MEDS: HYDROcodone/APAP 10-325MG 1 EACH TAB PO PRN (06:24)
[2018-09-24] MEDS: BUDESONIDE 1 MG/2 ML NEBU INHALATION SCH (06:54)
[2018-09-24 07:19] LABS: Glucose,Whole Blood 252 mg/dL (75-99)
[2018-09-24 07:55] LABS: Potassium 4.6 mmol/L (3.5-5.1)
[2018-09-24] MEDS: PREGABALIN 50 MG CAP PO SCH (07:56)
[2018-09-24] MEDS: MAGNESIUM OXIDE 400 MG TAB PO SCH (07:57)
[2018-09-24] MEDS: INSULIN ASPART 100 UNIT/ML 1 ML 10 ML VIAL SQ SCH ×2 (07:57→13:05)
[2018-09-24] MEDS: DIPYRIDAMOLE-ASPIRIN 200-25 MG 1 EACH CPMP.12HR PO SCH (07:57)
[2018-09-24] MEDS: AZITHROMYCIN 500 MG TAB PO SCH (07:57)
[2018-09-24] MEDS: FUROSEMIDE 20 MG TAB PO SCH (07:57)
[2018-09-24] MEDS: PSYLLIUM HUSK 100% 6 GM PACKET PO SCH (07:58)
[2018-09-24] MEDS: guaiFENesin-Coden 100-10MG/5ML 10 ML CUP PO PRN (08:13)
--- NOTE | 2018-09-24 09:43 | P.PN ---
Subjective Progress Note Date: 09/24/18 Principal diagnosis: Acute exacerbation of chronic obstructive pulmonary disease with chronic hypercapnic and hypoxemic respiratory failure, a component of fluid overload This is a 73-year-old white female patient of Dr. Ulrich, who was seen Dr. Cobos in the pulmonary office on 09/17/2018 UA patient of 2 day history of worsening cough, sweats, chills, production of dark brownish sputum, chest congestion. Chest x-ray was completed in the office, and showed bilateral pleural effusion, possible developing infiltrates versus atelectasis. Patient is also having some chest tightness which is worse with coughing. She has mild bilateral lower extremity edema. Denied any abdominal pain, nausea or vomiting. Her past medical history is significant for coronary artery disease, heart failure, COPD, previous history of CVA/TIA, fibromyalgia, GERD/reflux, hypertension, hyperlipidemia, previous episode of myocardial infarction, pneumonia, osteoarthritis, hypothyroidism. 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 Chest x-ray was repeated in the emergency department and showed concern for increased perivascular congestion. Troponin and BNP were within normal limits. Blood work was negative for any signs of leukocytosis, W BC was 6.8, hemoglobin is 14.9, electrolytes were fairly unremarkable, with evidence of chronic hypercapnic respiratory failure, BUN was 23 and creatinine was 0.83. Plasma lactic acid was 1.0, BNP was 313. Today's follow-up chest x-ray showed mild right basilar atelectasis, left basilar opacity that could reflect a small pleural effusion, atelectasis, or epicardial pleural fat. Patient has been afebrile overnight, she still sounds very congested, and bronchospastic. She still has the chills, headache, and persistent cough. She was started on empiric antibiotics in the form of Rocephin, she was given a dose of azithromycin in the emergency department, we will continue with the same. She was started on nebulized bronchodilators, and IV steroids. On 09/20/2018 patient seen in follow-up on medical surgical floor. She states her breathing has not much improved, but to bring up some thick tenacious, yellow flores colored sputum. Lung sounds are still positive for diffuse wheezes, and some scattered rhonchi, repeat chest x-ray was taken and showed no significant interval change in the appearance of the chest since that admission , no acute process, no clear-cut evidence of pneumonia or heart failure. Patient is afebrile. Cultures remain negative, patient is on IV steroids, empiric antibiotics in the form of Zithromax and Rocephin, oral Lasix, and pulmicort and Perforomist. On 09/2018 patient seen on medical surgical floor. She states her breathing is not much improved, despite the maximized medical treatment. Patient is on antibiotics, azithromycin and Rocephin, nebulized bronchodilators, IV steroids, yesterday we increased the dose of IV steroids to 60 g every 6 hours, lung sounds are positive for diffuse rhonchi, and wheezes. Currently on 2 L per nasal cannula the pulse ox of 95%, no fever, no chills, yesterday his chest x- ray did not show any acute process. CODE STATUS was discussed with the patient , and patient stated that he had to go on life-support it would be only for short-term, until her daughter got here from [place]. We also spoke to patient' s sister on the phone updated her on patient's condition, at this time proceeding with bronchoscopy would be risky, there would be high likelihood that patient would end up on life-support. We will continue with medical treatment. On 09/22/2018 patient seen in follow-up on medical surgical floor. She is up ambulating with a walker. She states that she is not feeling any better, but physical exam reveals less congestion, only a few scattered rhonchi, no wheezing. No crackles. No fever, no chills patient is on 2 L per nasal cannula , her pulse ox is 94%. No coughing. The fact that the patient is up and ambulating is a positive, and the patient was encouraged to increase her activity, sit up and ambulate. Today's labs were reviewed, BMP shows sodium of 142, potassium is 4.8, chloride is 98, CO2 34, BUN of 33 and creatinine 0.85. No new chest x-ray, clinically patient is improving. On 09/23/2018 patient seen in follow-up on medical surgical floor. Patient is in much better spirits today. She states her breathing is improving, less short of breath, less congestion. No coughing, no fever no chills. Patient has been getting up and ambulating with a walker, she is feeling better today. No chest x-rays today, today's labs have been reviewed, and is unremarkable, troponin was negative 1. Blood cultures remain negative, we were unable to collect a sputum culture, patient has been treated with empiric antibiotics in the form of Zithromax and Rocephin, IV steroids, and she is responding to treatments. On 09/24/2018 patient seen in follow-up on medical surgical floor. She is resting comfortably in bed, she is in no acute distress, she continues to improve, afebrile. Vital signs are stable, lung sounds are essentially clear to auscultation, no rhonchi, no rales, no wheezes. Blood cultures remain negative. Patient has been treated with a combination of Zithromax and Rocephin for acute exacerbation of COPD, IV steroids, and nebulized bronchodilators, she has improved, and from pulmonary perspective patient is stable for discharge home today. Objective - Vital Signs Vital signs: Vital Signs Temp 97.2 F L 09/24/18 05:00 Pulse 94 09/24/18 07:14 Resp 20 09/24/18 05:00 BP 99/64 09/24/18 05:00 Pulse Ox 97 09/24/18 05:00 Intake & Output 09/23/18 09/24/18 09/24/18 18:59 06:59 18:59 Intake Total 1260 Balance 1260 Weight 87 kg Intake: Oral 1260 Other: Voiding Method Toilet Toilet Toilet Diaper Diaper Diaper Incontinent Incontinent Incontinent # Voids 1 3 - Exam - Constitutional General appearance: no acute distress - EENT Eyes: EOMI ENT: NA/AT - Neck Neck: no lymphadenopathy, normal ROM Thyroid: bilateral: normal size - Respiratory Respiratory: bilateral: Sounds are essentially clear on today's exam - Cardiovascular Rhythm: regular Heart sounds: normal: S1, S2 Abnormal Heart Sounds: systolic murmur ankle Peripheral Edema: bilateral: 1+ leg Peripheral Edema: bilateral: 1+ foot Peripheral Edema: bilateral: 1+ - Gastrointestinal General gastrointestinal: no organomegaly, soft, no tenderness - Integumentary Integumentary: normal turgor - Neurologic Neurologic: CNII-XII intact - Musculoskeletal Musculoskeletal: generalized weakness, strength equal bilaterally - Psychiatric Psychiatric: A&O x's 3, appropriate affect, intact judgment & insight - Labs CBC & Chem 7: 09/21/18 08:22 09/24/18 07:23 Labs: Abnormal Lab Results - Last 24 Hours (Table) 09/23/18 09/23/18 09/23/18 Range/Units 10:57 17:13 20:56 Carbon Dioxide (22-30) mmol/L BUN (7-17) mg/dL Glucose (74-99) mg/dL POC Glucose (mg/dL) 100 H 164 H 203 H (75-99) mg/dL Calcium (8.4-10.2) mg/dL 09/24/18 09/24/18 Range/Units 07:17 07:23 Carbon Dioxide 33 H (22-30) mmol/L BUN 31 H (7-17) mg/dL Glucose 228 H (74-99) mg/dL POC Glucose (mg/dL) 252 H (75-99) mg/dL Calcium 8.0 L (8.4-10.2) mg/dL Microbiology - Last 24 Hours (Table) 09/17/18 16:16 Blood Culture - Final Blood No Growth after 144 hours Assessment and Plan Plan: Assessment: #1. Acute exacerbation of chronic obstructive pulmonary disease with chronic hypercapnic and hypoxemic respiratory failure. And there is a component of fluid overload, was small bilateral pleural effusion, and atelectasis, and possible early developing infiltrates On 2017 patient seen in follow-up on medical surgical floor. She is improving, breathing easier, lung sounds are clear to auscultation, no chest tightness, no cough, no phlegm production. Vital signs are stable, afebrile, cultures are negative, from pulmonary perspective patient stable for discharge home today #2. Severe chronic obstructive pulmonary disease, with underlying FEV1 of 50% of predicted, GOLD stage III #3. History of coronary artery disease, previous episode of myocardial infarction #4. Hypertension, hyperlipidemia #5. 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 Chronic congestive heart failure, with previously documented preserved left ventricular systolic function. Valvular heart disease, with moderate mitral stenosis, and severe mitral regurgitation #7. Hypothyroidism #8. Previous episodes of pneumonia #9. Chronic neck and back pain, fibromyalgia #10. GERD/reflux, status post Gogo fundoplication #11. Osteoarthritis Plan: No acute events overnight, patient continues to improve, from pulmonary perspective patient is stable for discharge home today, on the short course of oral antibiotics, and his own taper, and tightness inhalers and nebulized treatments, follow-up with Dr. Ricketts in the office in one week I performed a history & physical examination of the patient and discussed their management with my nurse practitioner, Rhonda Go. I reviewed the nurse practitioner's note and agree with the documented findings and plan of care. Lung sounds are clear. The findings and the impression was discussed with the patient. I attest to the documentation by the nurse practitioner. Time with Patient: Less than 30
[2018-09-24 10:08] VITALS: BMI 32.9
[2018-09-24] MEDS: FORMOTEROL FUMARATE 20 MCG/2 ML NEBU INHALATION SCH (10:42)
[2018-09-24 11:28] LABS: Glucose,Whole Blood 146 mg/dL (75-99)
[2018-09-24 12:08] VITALS: BP 110/58; PULSE 107; RESP 14; TEMP 98
--- NOTE | 2018-09-24 21:42 | P.DS ---
Providers Date of admission: 09/17/18 17:56 Expected date of discharge: 09/24/18 Attending physician: Chivo Murray Consults: 09/17/18 17:56 Consult Physician Routine Consulting Provider: Jan Faustin Consult Reason/Comments: COPD exacerbation Do you want consulting provider notified?: Yes Primary care physician: Ajay [facility] Course: Final Diagnoses: Acute on chronic hypercapnic respiratory failure secondary to COPD exacerbation -Severe COPD Gold stage III uses 2 liters nasal cannula O2 at home -Coronary artery disease -Hypertension -Right-sided elba-diaphragmatic paralysis secondary to her for CVA in the past -Chronic congestive heart failure chronic diastolic dysfunction mild acute exacerbation presently fairly euvolemic patient has while valvular heart disease with mitral stenosis and mitral regurgitation -Hypothyroidism -Fibromyalgia -Gastroesophageal reflux disease -Osteoarthritis Hospital course:Patient is admitted for COPD exacerbation is on high-dose systemic steroids inhalational treatments, antibiotics. Evaluated by pulmonary. Significant clinical improvement. Cleared by pulmonary for discharge. Patient is being discharged home in a stable condition with guarded prognosis. EXAMINATION: GENERAL: The patient is alert and oriented x3, not in any acute distress. Well developed, well nourished. CARDIOVASCULAR: S1 and S2 present. positive systolic murmur,no rubs, or gallops. PULMONARY: Increased air entry, bilateral bases diminished, no wheezing ABDOMEN: Soft, nontender, nondistended, normoactive bowel sounds. No palpable organomegaly. NEUROLOGICAL: Gross neurological examination did not reveal any focal deficits. The impression and plan of care has been dictated as directed. : I performed a history and examination of this patient, discussed the same with the dictator. I agree with the dictator's note ,documented as a scribe. Any additional findings or plans will be noted. Time taken: 35 minutes Patient Condition at Discharge: Stable Plan - Discharge Summary Discharge Rx Participant: No New Discharge Prescriptions: New guaiFENesin-Coden 100-10MG/5ML [Robitussin AC] 10 ml PO Q6H PRN ml PRN Reason: Cough predniSONE 10 mg PO DIRECTED #30 tab Psyllium Husk 100% [Metamucil Packet] 6 gm PO BID packet Cefuroxime Axetil [Ceftin] 500 mg PO BID 3 Days #6 tab Lactulose 20 gm PO DAILY PRN #400 ml PRN Reason: Constipation Continue Simvastatin [Zocor] 20 mg PO HS rOPINIRole HCL [Requip] 3 mg PO TID Pregabalin [Lyrica] 150 mg PO TID Aspirin/Dipyridamole [Aggrenox 25MG -200MG] 1 tab PO BID Levothyroxine Sodium [Synthroid] 112 mcg PO DAILY Magnesium Oxide 400 mg PO DAILY fentaNYL 12MCG/HR PATCH [Duragesic 12MCG/HR] 1 patch TRANSDERM Q72H Ipratropium-Albuterol Nebulize [Duoneb 0.5 mg-3 mg/3 ml Soln] 3 ml INHALATION RT-TID HYDROcodone/APAP 10-325MG [Dyke 10-325] 1 tab PO QID PRN PRN Reason: Pain diphenhydrAMINE [Benadryl] 25 mg PO QID PRN PRN Reason: Itching Furosemide [Lasix] 20 mg PO BID Nitroglycerin Sl Tabs [Nitrostat] 0.4 mg SUBLINGUAL Q5M PRN PRN Reason: Chest Pain Discharge Medication List Simvastatin [Zocor] 20 mg PO HS 11/10/14 [History] Aspirin/Dipyridamole [Aggrenox 25MG -200MG] 1 tab PO BID 01/16/17 [History] Pregabalin [Lyrica] 150 mg PO TID 01/16/17 [History] rOPINIRole HCL [Requip] 3 mg PO TID 01/16/17 [History] Levothyroxine Sodium [Synthroid] 112 mcg PO DAILY 06/04/17 [History] Magnesium Oxide 400 mg PO DAILY 12/31/17 [History] fentaNYL 12MCG/HR PATCH [Duragesic 12MCG/HR] 1 patch TRANSDERM Q72H 12/31/17 [ History] HYDROcodone/APAP 10-325MG [Dyke 10-325] 1 tab PO QID PRN 05/06/18 [History] Ipratropium-Albuterol Nebulize [Duoneb 0.5 mg-3 mg/3 ml Soln] 3 ml INHALATION RT -TID 05/06/18 [History] Furosemide [Lasix] 20 mg PO BID 07/28/18 [History] diphenhydrAMINE [Benadryl] 25 mg PO QID PRN 07/28/18 [History] Nitroglycerin Sl Tabs [Nitrostat] 0.4 mg SUBLINGUAL Q5M PRN 09/17/18 [History] Cefuroxime Axetil [Ceftin] 500 mg PO BID 3 Days #6 tab 09/24/18 [Rx] Lactulose 20 gm PO DAILY PRN #400 ml 09/24/18 [Rx] Psyllium Husk 100% [Metamucil Packet] 6 gm PO BID packet 09/24/18 [Rx] guaiFENesin-Coden 100-10MG/5ML [Robitussin AC] 10 ml PO Q6H PRN ml 09/24/18 [Rx ] predniSONE 10 mg PO DIRECTED #30 tab 09/24/18 [Rx] Follow up Appointment(s)/Referral(s): Jan Faustin MD [STAFF PHYSICIAN] - 10/13/18 2:30 pm Ajay Ulrich DO [Primary Care Provider] - 09/29/18 11:00 am [facility] Visiting Nurse, [NON-STAFF] - 1 Week Ambulatory/Diagnostic Orders: Complete Blood Count w/diff [LAB.AMB] Time Frame: 3 Days, Location: None Selected Patient Instructions/Handouts: Cefuroxime (By mouth), Prednisone (By mouth), COPD (Chronic Obstructive Pulmonary Disease) (DC) Activity/Diet/Wound Care/Special Instructions: 3lnc O2 at home Discharge Disposition: HOME WITH HOME HEALTH SERVICES
--- NOTE | 2018-09-24 21:50 | P.PN ---
Subjective Progress Note Date: 09/23/18 Progress note being dictated for Dr. Murray. Interval history: This is a 73-year-old female patient admitted for COPD exacerbation. Maintained on systemic steroids inhalational treatments, antibiotics. Breathing/wheezing improving. Ambulating with walker, tolerating increase in exertion well. Afebrile, blood cultures currently negative. Complained earlier of chest pain associated with coughing,resolved. EKG pending. Troponins negative. Objective - Vital Signs Vital signs: Vital Signs Temp 98 F 09/24/18 12:06 Pulse 107 H 09/24/18 12:06 Resp 14 09/24/18 12:06 BP 110/58 09/24/18 12:06 Pulse Ox 96 09/24/18 12:06 Intake & Output 09/24/18 09/24/18 09/25/18 06:59 18:59 06:59 Intake Total 1260 Balance 1260 Weight 87 kg 87 kg Intake: Oral 1260 Other: Voiding Method Toilet Diaper Diaper Incontinent Incontinent # Voids 3 2 - Exam GENERAL: The patient is alert and oriented x3, not in any acute distress. Well developed, well nourished. HEENT: Pupils are round and equally reacting to light. EOMI. No scleral icterus. No conjunctival pallor. Normocephalic, atraumatic. CARDIOVASCULAR: S1 and S2 present. Systolic murmurs, no rubs, or gallops. PULMONARY: Increased air entry with minimal wheezing was appreciated. ABDOMEN: Soft, nontender, nondistended, normoactive bowel sounds. No palpable organomegaly. EXTREMITIES: No cyanosis, clubbing, or pedal edema. NEUROLOGICAL: Gross neurological examination did not reveal any focal deficits. SKIN: No rashes. - Labs CBC & Chem 7: 09/21/18 08:22 09/24/18 07:23 Labs: Abnormal Lab Results - Last 24 Hours (Table) 09/24/18 09/24/18 09/24/18 Range/Units 07:17 07:23 11:27 Carbon Dioxide 33 H (22-30) mmol/L BUN 31 H (7-17) mg/dL Glucose 228 H (74-99) mg/dL POC Glucose (mg/dL) 252 H 146 H (75-99) mg/dL Calcium 8.0 L (8.4-10.2) mg/dL Microbiology - Last 24 Hours (Table) 09/17/18 16:16 Blood Culture - Final Blood No Growth after 144 hours Assessment and Plan Assessment: Acute on chronic hypercapnic respiratory failure secondary to COPD exacerbation -Severe COPD Gold stage III uses 2 liters nasal cannula O2 at home -Coronary artery disease -Hypertension -Right-sided elba-diaphragmatic paralysis secondary to her for CVA in the past -Chronic congestive heart failure chronic diastolic dysfunction mild acute exacerbation presently fairly euvolemic patient has while valvular heart disease with mitral stenosis and mitral regurgitation -Hypothyroidism -Fibromyalgia -Gastroesophageal reflux disease -Osteoarthritis Plan: Continue on current medication regime ,monitoring and symptomatic treatment. Continue on nebulized bronchodilators, systemic steroids and antibiotics. Aggressive pulmonary toileting. Increase ambulation as tolerated. Discharge planning in progress for tomorrow pending pulmonary clearance. The impression and plan of care has been dictated as directed. : I performed a history and examination of this patient, discussed the same with the dictator. I agree with the dictator's note ,documented as a scribe. Any additional findings or plans will be noted.
== END 2018-09-24 14:43 | disposition home health service (06) | DRG 190 ==
LOC: EC 15:54 → 4MS4W 17:56 → 3NMEDONC 18:34
PROVIDERS: ADMIT Internal Medicine; ATTEND Internal Medicine
DX: J44.1 Chronic obstructive pulmonary disease with (acute) exacerbation (principal); J96.22 Acute and chronic respiratory failure with hypercapnia; J96.21 Acute and chronic respiratory failure with hypoxia; J18.1 Lobar pneumonia, unspecified organism; I50.42 Chronic combined systolic (congestive) and diastolic (congestive) heart failure; J98.11 Atelectasis; Z99.81 Dependence on supplemental oxygen; I25.10 Atherosclerotic heart disease of native coronary artery without angina pectoris; I69.398 Other sequelae of cerebral infarction; J98.6 Disorders of diaphragm; M79.7 Fibromyalgia; K21.9 Gastro-esophageal reflux disease without esophagitis; I11.0 Hypertensive heart disease with heart failure; I05.2 Rheumatic mitral stenosis with insufficiency; M19.91 Primary osteoarthritis, unspecified site; G25.81 Restless legs syndrome; E78.5 Hyperlipidemia, unspecified; E89.0 Postprocedural hypothyroidism; G89.4 Chronic pain syndrome; N39.3 Stress incontinence (female) (male); I25.2 Old myocardial infarction; R29.810 Facial weakness; M54.2 Cervicalgia; M54.9 Dorsalgia, unspecified; I67.1 Cerebral aneurysm, nonruptured; Z90.49 Acquired absence of other specified parts of digestive tract; Z90.710 Acquired absence of both cervix and uterus; Z96.611 Presence of right artificial shoulder joint; Z98.1 Arthrodesis status; Z96.651 Presence of right artificial knee joint; F32.9 Major depressive disorder, single episode, unspecified; Z87.891 Personal history of nicotine dependence; Z82.49 Family history of ischemic heart disease and other diseases of the circulatory system; Z79.82 Long term (current) use of aspirin; Z79.890 Hormone replacement therapy; Z79.891 Long term (current) use of opiate analgesic; Z79.899 Other long term (current) drug therapy; Z88.1 Allergy status to other antibiotic agents; Z88.3 Allergy status to other anti-infective agents; Z88.2 Allergy status to sulfonamides; Z88.8 Allergy status to other drugs, medicaments and biological substances; K44.9 Diaphragmatic hernia without obstruction or gangrene; Z87.01 Personal history of pneumonia (recurrent); J44.0 Chronic obstructive pulmonary disease with (acute) lower respiratory infection; Z79.52 Long term (current) use of systemic steroids
CPT/HCPCS: 36415; 71045; 71046; 80048; 80053; 82550; 82553; 83605; 83735; 83880; 84484; 85025; 85610; 85730; 87040; 93005; 94640; 94760; 96365; 96375; 99285

== ENCOUNTER 2018-11-08 04:09 | Observation (INO) | payer MEDICARE ==
[2018-11-08] MEDS ORDERED: ONDANSETRON 4 MG/2 ML VIAL IVP STA ×2 (04:44→07:45)
[2018-11-08] MEDS ORDERED: SODIUM CHLORIDE 0.9% 500 ML 500 ML IV STA (04:44)
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
[2018-11-08] MEDS ORDERED: MORPHINE SULFATE 4 MG/ML SYRINGE IV STA ×2 (04:51→07:45)
[2018-11-08 04:55] LABS: Basophils # (A) 0.1 k/uL (0-0.2); Basophils % (A) 1 %; Eosinophils # (A) 0.1 k/uL (0-0.7); Eosinophils % (A) 1 %; HGB 14.6 gm/dL (11.4-16.0); Lymphocytes # (A) 1.5 k/uL (1.0-4.8); Lymphocytes % (A) 24 %; MCH 30.4 pg (25.0-35.0); MCHC 33.1 g/dL (31.0-37.0); MCV 91.7 fL (80.0-100.0); Mean Platelet Volume 8.6; Monocytes # (A) 0.5 k/uL (0-1.0); Monocytes % (A) 7 %; Neutrophils % (A) 65 %; Platelet Count 149 k/uL (150-450); RDW 15.4 % (11.5-15.5); WBC 6.2 k/uL (3.8-10.6)
--- NOTE | 2018-11-08 04:57 | XR ---
EXAMINATION TYPE: XR chest 2V DATE OF EXAM: 11/08/2018 COMPARISON: 10/15/2018 HISTORY: Chest pain TECHNIQUE: Frontal and lateral views of the chest are obtained. FINDINGS: There is some subsegmental atelectasis in the left lower lung field. There is no heart ilda lure. Heart size is normal. There are chest leads. There is right shoulder prosthesis. IMPRESSION: Left side mild subsegmental atelectasis. No heart failure. No significant change compare d to old exam.
[2018-11-08 05:08] LABS: Creatine Kinase 55 U/L (30-135)
[2018-11-08 05:12] LABS: Albumin 4.2 g/dL (3.5-5.0); Calcium 9.1 mg/dL (8.4-10.2); Magnesium 1.9 mg/dL (1.6-2.3); Total Protein 7.2 g/dL (6.3-8.2)
[2018-11-08 05:15] LABS: Partial Thromboplastin Time 22.1 sec (22.0-30.0); Prothrombin Time 10.3 sec (9.0-12.0)
[2018-11-08 05:20] LABS: Creatine Kinase MB 0.8 ng/mL (0.0-2.4); Troponin I <0.012 ng/mL (0.000-0.034)
[2018-11-08 05:23] LABS: D-Dimer 0.75 mg/L FEU (<0.60)
[2018-11-08 05:35] LABS: Potassium 3.5 mmol/L (3.5-5.1)
[2018-11-08] MEDS ORDERED: NALOXONE 0.4 MG/ML 1 ML VIAL IV PRN (08:38)
[2018-11-08] MEDS ORDERED: ONDANSETRON 4 MG/2 ML VIAL IVP PRN (08:38)
[2018-11-08] MEDS ORDERED: SODIUM CHLORIDE 0.9% 1,000 ML IV SCH (08:45)
[2018-11-08] MEDS ORDERED: FAMOTIDINE 20 MG TAB PO SCH (09:00)
[2018-11-08 10:13] VITALS: BMI 29.7
[2018-11-08] MEDS ORDERED: guaiFENesin-Coden 100-10MG/5ML 10 ML CUP PO PRN (13:57)
[2018-11-08] MEDS ORDERED: NITROGLYCERIN SL TABS 0.4 MG TAB SUBLINGUAL PRN (13:57)
[2018-11-08] MEDS ORDERED: LACTULOSE 20 GM/30 ML CUP PO PRN (13:57)
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
[2018-11-08] MEDS: PREGABALIN 75 MG CAP PO SCH ×2 (16:09→20:21)
[2018-11-08] MEDS: HYDROcodone/APAP 10-325MG 1 EACH TAB PO PRN (16:13)
[2018-11-08] MEDS: diphenhydrAMINE 25 MG CAP PO PRN (18:26)
[2018-11-08] MEDS: DIPYRIDAMOLE-ASPIRIN 200-25 MG 1 EACH CPMP.12HR PO SCH (20:22)
[2018-11-08] MEDS: PANTOPRAZOLE 40 MG/10 ML VIAL IVP SCH (20:38)
[2018-11-08] MEDS ORDERED: ATORVASTATIN 10 MG TAB PO SCH (21:00)
--- NOTE | 2018-11-08 22:52 | CONS ---
CONSULTATION DATE OF SERVICE: 11/08/2018 REQUESTING PHYSICIAN: Dr. Alissa Ulrich. REASON FOR CONSULTATION: Nausea and vomiting. HISTORY OF PRESENT ILLNESS: The patient is a 73-year-old pleasant white female came to the emergency room because of some right upper quadrant abdominal pain associated with nausea vomiting that started about 2 days ago. The patient had multiple episodes of dry heaves and a couple of episodes of emesis. The patient states that she has been having these symptoms on and off for several years duration, often ends up in the hospital 2-3 times a year for the same symptoms. She states that she has seen me in the office about 2 years ago and she had an upper endoscopy done as well as gastric emptying scan and was told it was normal. She has history of GERD with occasional heartburn. She complains of some chest pain also. Since being in the hospital, she has been having some dry heaves but no emesis. Presently on IV Protonix and Zofran and feeling better. PAST MEDICAL HISTORY: Significant for hypertension, COPD, coronary artery disease, congestive heart failure, gastroesophageal reflux disease, osteoarthritis, hypothyroidism. PAST SURGICAL HISTORY: Back surgery, appendectomy, adenoidectomy, cholecystectomy, cardiac catheterization, hysterectomy, tonsillectomy, tubal ligation, right knee replacement, bilateral cataract surgery, Gogo fundoplication, EGD and colonoscopy in the past. PAST MEDICATIONS: At home include Zocor, Aggrenox, Requip, Lyrica, Synthroid, Duragesic patch, [place], Lasix, Nitrostat, Benadryl, Zofran, Robitussin, and MiraLAX. ALLERGIES: NYSTATIN, SULFA, OXYCODONE. SOCIAL HISTORY: No smoking. No alcohol use. FAMILY HISTORY: Mother had hypertension. Father with coronary artery disease. REVIEW OF SYMPTOMS: CARDIOPULMONARY: No chest pain or shortness of breath. GENITOURINARY: No dysuria or hematuria. MUSCULOSKELETAL: Chronic back pain. NEUROLOGY unremarkable. PSYCHIATRIC: Unremarkable. ENT/vision unremarkable. CONSTITUTIONAL: No recent weight loss. No fever, chills. ENDOCRINE unremarkable. PSYCHIATRIC unremarkable. GI as mentioned above. PHYSICAL EXAMINATION: She appears comfortable. No apparent distress. VITAL SIGNS: Stable. Blood pressure is 105/67, pulse rate 77, temperature 97.6. HEENT examination unremarkable. Conjunctivae pink. Sclerae anicteric. Oral cavity no lesions. NECK: No jugular venous distention or lymph node enlargement. Chest was clear to auscultation. HEART: Regular rate and rhythm. ABDOMEN: Soft. Very mild tenderness in the right upper quadrant area. Bowel sounds are positive. No organomegaly. EXTREMITIES: No pedal edema. Skin no rashes. NEUROLOGIC: Alert and oriented x3. No focal deficits. LABS: WBC 6.2, hemoglobin 14.6, platelets 149. Basic metabolic panel, BUN 20, creatinine 0.78. Electrolytes are normal. IMPRESSION: This is a lady who presents to the hospital with nausea, vomiting for the last 2-3 days duration associated with severe dry heaves and right upper quadrant abdominal pain. She has these episodes on and off for many years. Usually happens 3-4 times a year, often gets hospitalized, treated with medications. Symptoms usually resolved. She said that she had outpatient workup a couple of years ago including an upper endoscopy and gastric emptying scan which were all reported as negative. Records are not available at the time of this dictation. RECOMMENDATIONS: 1. Continue with IV Protonix and Zofran as needed. 2. Small frequent meals. 3. Start with clear liquid diet and advance as tolerated. 4. If her symptoms improve, she can be discharged home tomorrow with outpatient follow up in 2 weeks for further workup on outpatient basis. Thank you for this consultation. WILLIE / PAULAN: [id number] /
[2018-11-08] MEDS: IPRATROPIUM-ALBUTEROL 3 ML NEB INHALATION SCH (23:12)
[2018-11-09 04:03] VITALS: RESP 18
[2018-11-09] MEDS ORDERED: LEVOTHYROXINE 112 MCG TAB PO SCH (06:30)
[2018-11-09 07:37] VITALS: BP 99/63; TEMP 97.4
[2018-11-09] MEDS: IPRATROPIUM-ALBUTEROL 3 ML NEB INHALATION SCH (08:30)
[2018-11-09 08:34] VITALS: PULSE 84
[2018-11-09] MEDS ORDERED: POLYETHYLENE GLYCOL 3350 17 GM POWD.PACK PO SCH (09:00)
[2018-11-09] MEDS ORDERED: MAGNESIUM OXIDE 400 MG TAB PO SCH (09:00)
[2018-11-09] MEDS: PREGABALIN 75 MG CAP PO SCH (09:01)
[2018-11-09] MEDS: DIPYRIDAMOLE-ASPIRIN 200-25 MG 1 EACH CPMP.12HR PO SCH (09:01)
[2018-11-09] MEDS: HYDROcodone/APAP 10-325MG 1 EACH TAB PO PRN (09:01)
[2018-11-09] MEDS: PANTOPRAZOLE 40 MG/10 ML VIAL IVP SCH (09:02)
--- NOTE | 2018-11-09 10:44 | P.DS ---
Providers Date of admission: 11/08/18 08:38 Attending physician: Adele Murray Consults: 11/08/18 13:59 Consult Physician Routine Consulting Provider: Lila Gutierrez Consult Reason/Comments: nausea/vomiting Do you want consulting provider notified?: Yes Primary care physician: Ajay [facility] Course: 73-year-old female came in with comments of nausea vomiting. Family members were present at the bedside and they're completing the patient has wheezing although on examination patient is graded well at length is no wheezing. Patient patient is able to tolerate the full liquid diet very well. Patient denied any fever chills. Patient also complained that she is quite weak because of which she came to the hospital will obtain PT and OT consultation for that. Patient does have history of COPD uses solids and an as-needed basis at home. Patient is saturating well and not omitted here. Patient also company of pressure-like right-sided chest pain is nonpleuritic. Patient has neck issues and patient has a interventions in the to the cervical spine that. Her pain is coming from. Patient has a cardiac catheterization in June 2018 which did not show any significant it was cardiovascular disease mild vascular disease was appreciated that time. Troponins were negative and EKGs did not show any new changes. Chest x-ray did not show any pneumonic process 11/09/2018 Patient is little bit nauseous but symptoms significant improved and patient was a valid by gastroenterology and physical therapy and occupational therapy. Patient wanted to go home today. Patient will be discharged today on Prilosec for 30 days follow with gastroneurology as an outpatient. PHYSICAL EXAMINATION: GENERAL: The patient is alert and oriented x3, not in any acute distress. Well developed, well nourished. HEENT: Pupils are round and equally reacting to light. EOMI. No scleral icterus. No conjunctival pallor. Normocephalic, atraumatic. No pharyngeal erythema. No thyromegaly. CARDIOVASCULAR: S1 and S2 present. No murmurs, rubs, or gallops. PULMONARY: Chest is clear to auscultation, no wheezing or crackles. ABDOMEN: Soft, nontender, nondistended, normoactive bowel sounds. No palpable organomegaly. MUSCULOSKELETAL: No joint swelling or deformity. EXTREMITIES: No cyanosis, clubbing, or pedal edema. NEUROLOGICAL: Gross neurological examination did not reveal any focal deficits. SKIN: No rashes. Assessment and Plan Plan: -Nausea and vomiting improved now secondary to esophagitis and gastritis -Generalized weakness we'll obtain consultation with PT and OT -COPD without any acute exacerbation -Minimal coronary artery disease in the past of the chest pain is noncardiac atypical and had a recent cardiac catheterization was ruled out acute current symptoms at this time. -Fibromyalgia and chronic right upper quadrant abdominal pain for which patient was extensively evaluated in the past -Hypothyroidism -Osteoarthritis -Gases visual reflux disease. Patient Condition at Discharge: Fair Plan - Discharge Summary Discharge Rx Participant: No New Discharge Prescriptions: New Ondansetron Odt [Zofran ODT] 4 mg PO Q8HR PRN #10 tab PRN Reason: Nausea Omeprazole [PriLOSEC] 40 mg PO AC-BRKFST #30 capsule.dr [place] Action Simvastatin [Zocor] 20 mg PO HS rOPINIRole HCL [Requip] 3 mg PO TID Pregabalin [Lyrica] 150 mg PO TID Aspirin/Dipyridamole [Aggrenox 25MG -200MG] 1 tab PO BID Levothyroxine Sodium [Synthroid] 112 mcg PO DAILY Magnesium Oxide 400 mg PO DAILY fentaNYL 12MCG/HR PATCH [Duragesic 12MCG/HR] 1 patch TRANSDERM Q72H Ipratropium-Albuterol Nebulize [Duoneb 0.5 mg-3 mg/3 ml Soln] 3 ml INHALATION RT-TID HYDROcodone/APAP 10-325MG [[place] 10-325] 1 tab PO QID PRN PRN Reason: Pain diphenhydrAMINE [Benadryl] 25 mg PO QID PRN PRN Reason: Itching Furosemide [Lasix] 20 mg PO BID Nitroglycerin Sl Tabs [Nitrostat] 0.4 mg SUBLINGUAL Q5M PRN PRN Reason: Chest Pain guaiFENesin-Coden 100-10MG/5ML [Robitussin AC] 10 ml PO Q6H PRN ml PRN Reason: Cough Lactulose 20 gm PO DAILY PRN #400 ml PRN Reason: Constipation Polyethylene Glycol 3350 [Miralax] 17 gm PO DAILY Discharge Medication List Simvastatin [Zocor] 20 mg PO HS 11/10/14 [History] Aspirin/Dipyridamole [Aggrenox 25MG -200MG] 1 tab PO BID 01/16/17 [History] Pregabalin [Lyrica] 150 mg PO TID 01/16/17 [History] rOPINIRole HCL [Requip] 3 mg PO TID 01/16/17 [History] Levothyroxine Sodium [Synthroid] 112 mcg PO DAILY 06/04/17 [History] Magnesium Oxide 400 mg PO DAILY 12/31/17 [History] fentaNYL 12MCG/HR PATCH [Duragesic 12MCG/HR] 1 patch TRANSDERM Q72H 12/31/17 [ History] HYDROcodone/APAP 10-325MG [[place] 10-325] 1 tab PO QID PRN 05/06/18 [History] Ipratropium-Albuterol Nebulize [Duoneb 0.5 mg-3 mg/3 ml Soln] 3 ml INHALATION RT -TID 05/06/18 [History] Furosemide [Lasix] 20 mg PO BID 07/28/18 [History] diphenhydrAMINE [Benadryl] 25 mg PO QID PRN 07/28/18 [History] Nitroglycerin Sl Tabs [Nitrostat] 0.4 mg SUBLINGUAL Q5M PRN 09/17/18 [History] Lactulose 20 gm PO DAILY PRN #400 ml 09/24/18 [Rx] guaiFENesin-Coden 100-10MG/5ML [Robitussin AC] 10 ml PO Q6H PRN ml 09/24/18 [Rx ] Ondansetron Odt [Zofran ODT] 4 mg PO Q8HR PRN #10 tab 11/08/18 [Rx] Polyethylene Glycol 3350 [Miralax] 17 gm PO DAILY 11/08/18 [History] Omeprazole [PriLOSEC] 40 mg PO AC-BRKFST #30 capsule. 11/09/18 [Rx] Follow up Appointment(s)/Referral(s): Ajay Ulrich DO [Primary Care Provider] - 1-2 days Patient Instructions/Handouts: Acute Nausea and Vomiting (ED)
[2018-11-09] MEDS: diphenhydrAMINE 25 MG CAP PO PRN (11:09)
== END 2018-11-09 11:55 | disposition home or self-care (01) ==
LOC: EC 04:09 → 1SOBS 08:38
PROVIDERS: ADMIT Internal Medicine; ATTEND Internal Medicine
DX: K21.0 Gastro-esophageal reflux disease with esophagitis (principal); K29.70 Gastritis, unspecified, without bleeding; R07.89 Other chest pain; J44.9 Chronic obstructive pulmonary disease, unspecified; R10.11 Right upper quadrant pain; G89.29 Other chronic pain; M79.7 Fibromyalgia; R53.1 Weakness; I25.10 Atherosclerotic heart disease of native coronary artery without angina pectoris; F32.9 Major depressive disorder, single episode, unspecified; I11.0 Hypertensive heart disease with heart failure; I50.9 Heart failure, unspecified; M19.90 Unspecified osteoarthritis, unspecified site; R26.9 Unspecified abnormalities of gait and mobility; E78.5 Hyperlipidemia, unspecified; E03.9 Hypothyroidism, unspecified; I05.2 Rheumatic mitral stenosis with insufficiency; I27.20 Pulmonary hypertension, unspecified; J96.10 Chronic respiratory failure, unspecified whether with hypoxia or hypercapnia; G25.81 Restless legs syndrome; I69.392 Facial weakness following cerebral infarction; Z90.49 Acquired absence of other specified parts of digestive tract; Z90.710 Acquired absence of both cervix and uterus; Z98.51 Tubal ligation status; Z98.42 Cataract extraction status, left eye; Z98.41 Cataract extraction status, right eye; Z96.651 Presence of right artificial knee joint; Z79.899 Other long term (current) drug therapy; Z79.890 Hormone replacement therapy; Z88.5 Allergy status to narcotic agent; Z88.2 Allergy status to sulfonamides; Z82.49 Family history of ischemic heart disease and other diseases of the circulatory system; I25.2 Old myocardial infarction; Z87.01 Personal history of pneumonia (recurrent); Z87.440 Personal history of urinary (tract) infections; Z96.611 Presence of right artificial shoulder joint; Z87.891 Personal history of nicotine dependence; Z88.1 Allergy status to other antibiotic agents; Z98.1 Arthrodesis status
CPT/HCPCS: 96361 ×3; 96375 ×2; 96376 ×2; 96374; 99285; 36415; 94640 ×2; 93005; 97161; 85379; 80053; 82550; 82553; 83735; 84484; 85025; 85610; 85730; 71046; G0378 ×2; J2270; J2405 ×2; C9113 ×2

== ENCOUNTER 2018-11-11 15:36 | Inpatient (IN) | payer MEDICARE ==
[2018-11-11] MEDS ORDERED: SODIUM CHLORIDE 0.9% 1,000 ML IV STA (16:21)
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
--- NOTE | 2018-11-11 17:26 | XR ---
EXAMINATION TYPE: XR chest 2V DATE OF EXAM: 11/11/2018 COMPARISON: 11/08/2018 HISTORY: Chest pain TECHNIQUE: Frontal and lateral views of the chest are obtained. FINDINGS: There is no heart failure. There is coarse infiltrate in both lower lobes. Heart is top no rmal in size. I see no definite pleural effusion. IMPRESSION: Patchy infiltrate and atelectasis at the lung bases increased compared to last exam. No heart failure.
[2018-11-11 17:28] LABS: Basophils % (A) 1 %; Eosinophils # (A) 0.1 k/uL (0-0.7); Eosinophils % (A) 2 %; HCT 37.7 % (34.0-46.0); HGB 12.7 gm/dL (11.4-16.0); Lymphocytes % (A) 20 %; MCH 31.1 pg (25.0-35.0); MCHC 33.7 g/dL (31.0-37.0); MCV 92.1 fL (80.0-100.0); Mean Platelet Volume 8.5; Monocytes # (A) 0.3 k/uL (0-1.0); Monocytes % (A) 5 %; Neutrophils # (A) 3.6 k/uL (1.3-7.7); Neutrophils % (A) 72 %; Platelet Count 120 k/uL (150-450); RBC 4.09 m/uL (3.80-5.40); RDW 15.4 % (11.5-15.5)
[2018-11-11 17:41] LABS: Prothrombin Time 10.9 sec (9.0-12.0)
[2018-11-11 17:44] LABS: Albumin 3.2 g/dL (3.5-5.0); Anion Gap 6 mmol/L; Blood Urea Nitrogen 12 mg/dL (7-17); Calcium 8.7 mg/dL (8.4-10.2); Carbon Dioxide 29 mmol/L (22-30); Chloride 105 mmol/L (98-107); Glucose 97 mg/dL (74-99); Potassium 3.9 mmol/L (3.5-5.1); Sodium 140 mmol/L (137-145); Total Protein 5.9 g/dL (6.3-8.2)
[2018-11-11 17:45] LABS: ALT 23 U/L (9-52); AST 29 U/L (14-36); Alkaline Phosphatase 90 U/L (38-126); Magnesium 2.2 mg/dL (1.6-2.3)
[2018-11-11 17:48] LABS: Creatine Kinase 66 U/L (30-135)
[2018-11-11 18:01] LABS: Creatine Kinase MB 0.7 ng/mL (0.0-2.4); Troponin I <0.012 ng/mL (0.000-0.034)
[2018-11-11] MEDS ORDERED: AZITHROMYCIN 500 MG in DEXTROSE 5% IN WATER 250 ML IVPB STA ×2 (19:00)
[2018-11-11] MEDS ORDERED: NITROGLYCERIN SL TABS 0.4 MG TAB SUBLINGUAL PRN (19:02)
[2018-11-11] MEDS ORDERED: ASPIRIN 81 MG PO STA (19:02)
[2018-11-11] MEDS: HYDROcodone/APAP 10-325MG 1 EACH TAB PO PRN (22:18)
[2018-11-12 00:05] LABS: Creatine Kinase 57 U/L (30-135)
[2018-11-12 00:14] LABS: Troponin I <0.012 ng/mL (0.000-0.034)
[2018-11-12 00:16] LABS: Creatine Kinase MB 0.6 ng/mL (0.0-2.4)
[2018-11-12] MEDS ORDERED: diphenhydrAMINE 25 MG CAP PO PRN (00:36)
[2018-11-12] MEDS ORDERED: ONDANSETRON ODT 4 MG TAB PO PRN (00:36)
[2018-11-12] MEDS ORDERED: NITROGLYCERIN SL TABS 0.4 MG TAB SUBLINGUAL PRN (00:36)
[2018-11-12] MEDS ORDERED: ATORVASTATIN 10 MG TAB PO SCH (01:00)
[2018-11-12] MEDS: FUROSEMIDE 40 MG TAB PO SCH ×2 (01:40→09:49)
[2018-11-12] MEDS: PREGABALIN 75 MG CAP PO SCH ×2 (01:40→09:48)
[2018-11-12] MEDS: DIPYRIDAMOLE-ASPIRIN 200-25 MG 1 EACH CPMP.12HR PO SCH ×2 (01:55→09:48)
[2018-11-12 05:24] LABS: Cholesterol 119 mg/dL (<200); HDL Cholesterol 57 mg/dL (40-60); LDL Cholesterol,Calculated 48 mg/dL (0-99); Triglycerides 68 mg/dL (<150)
[2018-11-12 05:28] LABS: Creatine Kinase 52 U/L (30-135)
[2018-11-12 05:41] LABS: Creatine Kinase MB 0.5 ng/mL (0.0-2.4); Troponin I <0.012 ng/mL (0.000-0.034)
[2018-11-12 06:25] LABS: Glucose,Whole Blood 99 mg/dL (75-99)
[2018-11-12] MEDS ORDERED: LEVOTHYROXINE 112 MCG TAB PO SCH (06:30)
[2018-11-12 07:09] LABS: Basophils % (A) 1 %; Eosinophils # (A) 0.1 k/uL (0-0.7); Eosinophils % (A) 2 %; HCT 36.1 % (34.0-46.0); HGB 11.8 gm/dL (11.4-16.0); Hypochromasia Slight; Lymphocytes # (A) 1.2 k/uL (1.0-4.8); Lymphocytes % (A) 26 %; MCH 31.1 pg (25.0-35.0); MCHC 32.8 g/dL (31.0-37.0); MCV 94.9 fL (80.0-100.0); Mean Platelet Volume 8.6; Monocytes # (A) 0.3 k/uL (0-1.0); Monocytes % (A) 7 %; Neutrophils # (A) 2.8 k/uL (1.3-7.7); Neutrophils % (A) 63 %; Platelet Count 109 k/uL (150-450); RDW 15.4 % (11.5-15.5); WBC 4.4 k/uL (3.8-10.6)
[2018-11-12 07:23] LABS: Anion Gap 6 mmol/L; Blood Urea Nitrogen 13 mg/dL (7-17); Calcium 8.1 mg/dL (8.4-10.2); Carbon Dioxide 27 mmol/L (22-30); Chloride 107 mmol/L (98-107); Glucose 86 mg/dL (74-99); Potassium 3.3 mmol/L (3.5-5.1); Sodium 140 mmol/L (137-145)
[2018-11-12] MEDS ORDERED: PANTOPRAZOLE 40 MG TABLET PO SCH (07:30)
[2018-11-12] MEDS: IPRATROPIUM-ALBUTEROL 3 ML NEB INHALATION SCH ×2 (08:42→12:03)
[2018-11-12] MEDS ORDERED: MAGNESIUM OXIDE 400 MG TAB PO SCH (09:00)
[2018-11-12] MEDS ORDERED: ASPIRIN 325 MG TAB PO SCH (09:00)
[2018-11-12] MEDS ORDERED: POTASSIUM CHLORIDE ER 20 MEQ TAB.ER PO STA (09:42)
[2018-11-12] MEDS: HYDROcodone/APAP 10-325MG 1 EACH TAB PO PRN (09:49)
--- NOTE | 2018-11-12 10:46 | P.DS ---
Providers Date of admission: 11/11/18 19:02 Attending physician: Corbin Wright MD Consults: 11/11/18 19:02 Consult Physician Urgent Consulting Provider: Jose Maddox Consult Reason/Comments: chest pain Do you want consulting provider notified?: Yes Primary care physician: [facility] Course: As mentioned in HPI Patient Condition at Discharge: Fair Plan - Discharge Summary Discharge Rx Participant: Yes New Discharge Prescriptions: New Budesonide-Formot 160-4.5 Mcg [Symbicort 160-4.5 Mcg Inhaler] 2 puff INHALATION BID #1 inhaler Continue Simvastatin [Zocor] 20 mg PO HS rOPINIRole HCL [Requip] 3 mg PO TID Pregabalin [Lyrica] 150 mg PO TID Aspirin/Dipyridamole [Aggrenox 25MG -200MG] 1 tab PO BID Levothyroxine Sodium [Synthroid] 112 mcg PO DAILY Magnesium Oxide 400 mg PO DAILY fentaNYL 12MCG/HR PATCH [Duragesic 12MCG/HR] 1 patch TRANSDERM Q72H Ipratropium-Albuterol Nebulize [Duoneb 0.5 mg-3 mg/3 ml Soln] 3 ml INHALATION RT-TID HYDROcodone/APAP 10-325MG [[place] 10-325] 1 tab PO QID PRN PRN Reason: Pain diphenhydrAMINE [Benadryl] 25 mg PO QID PRN PRN Reason: Itching Nitroglycerin Sl Tabs [Nitrostat] 0.4 mg SUBLINGUAL Q5M PRN PRN Reason: Chest Pain guaiFENesin-Coden 100-10MG/5ML [Robitussin AC] 10 ml PO Q6H PRN ml PRN Reason: Cough Lactulose 20 gm PO DAILY PRN #400 ml PRN Reason: Constipation Ondansetron Odt [Zofran ODT] 4 mg PO Q8HR PRN #10 tab PRN Reason: Nausea Polyethylene Glycol 3350 [Miralax] 17 gm PO DAILY Omeprazole [PriLOSEC] 40 mg PO AC-BRKFST #30 capsule.dr Discontinued Furosemide [Lasix] 20 mg PO BID Discharge Medication List Simvastatin [Zocor] 20 mg PO HS 11/10/14 [History] Aspirin/Dipyridamole [Aggrenox 25MG -200MG] 1 tab PO BID 01/16/17 [History] Pregabalin [Lyrica] 150 mg PO TID 01/16/17 [History] rOPINIRole HCL [Requip] 3 mg PO TID 01/16/17 [History] Levothyroxine Sodium [Synthroid] 112 mcg PO DAILY 06/04/17 [History] Magnesium Oxide 400 mg PO DAILY 12/31/17 [History] fentaNYL 12MCG/HR PATCH [Duragesic 12MCG/HR] 1 patch TRANSDERM Q72H 12/31/17 [ History] HYDROcodone/APAP 10-325MG [[place] 10-325] 1 tab PO QID PRN 05/06/18 [History] Ipratropium-Albuterol Nebulize [Duoneb 0.5 mg-3 mg/3 ml Soln] 3 ml INHALATION RT -TID 05/06/18 [History] diphenhydrAMINE [Benadryl] 25 mg PO QID PRN 07/28/18 [History] Nitroglycerin Sl Tabs [Nitrostat] 0.4 mg SUBLINGUAL Q5M PRN 09/17/18 [History] Lactulose 20 gm PO DAILY PRN #400 ml 09/24/18 [Rx] guaiFENesin-Coden 100-10MG/5ML [Robitussin AC] 10 ml PO Q6H PRN ml 09/24/18 [Rx ] Ondansetron Odt [Zofran ODT] 4 mg PO Q8HR PRN #10 tab 11/08/18 [Rx] Polyethylene Glycol 3350 [Miralax] 17 gm PO DAILY 11/08/18 [History] Omeprazole [PriLOSEC] 40 mg PO AC-BRKFST #30 capsule.dr 11/09/18 [Rx] Budesonide-Formot 160-4.5 Mcg [Symbicort 160-4.5 Mcg Inhaler] 2 puff INHALATION BID #1 inhaler 11/12/18 [Rx] Follow up Appointment(s)/Referral(s): Ajay Ulrich DO [Primary Care Provider] - 3 Days Sisi Vasquez MD [STAFF PHYSICIAN] - 11/20/18 4:45 pm Patient Instructions/Handouts: Chest Pain (DC), Pneumonia (DC) Discharge Disposition: HOME SELF-CARE
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
[2018-11-12 11:50] VITALS: BP 136/78; RESP 18; TEMP 97.4
[2018-11-12 12:21] VITALS: PULSE 60
== END 2018-11-12 14:46 | disposition home health service (06) | DRG 313 ==
LOC: EC 15:36 → 3SCARD 19:02
PROVIDERS: ADMIT Internal Medicine; ATTEND Internal Medicine
DX: R07.89 Other chest pain (principal); I50.32 Chronic diastolic (congestive) heart failure; J98.11 Atelectasis; J96.10 Chronic respiratory failure, unspecified whether with hypoxia or hypercapnia; E78.5 Hyperlipidemia, unspecified; E86.0 Dehydration; E89.0 Postprocedural hypothyroidism; G25.81 Restless legs syndrome; I05.2 Rheumatic mitral stenosis with insufficiency; I11.0 Hypertensive heart disease with heart failure; I25.10 Atherosclerotic heart disease of native coronary artery without angina pectoris; I25.2 Old myocardial infarction; I27.20 Pulmonary hypertension, unspecified; J44.9 Chronic obstructive pulmonary disease, unspecified; K21.0 Gastro-esophageal reflux disease with esophagitis; M19.90 Unspecified osteoarthritis, unspecified site; M79.7 Fibromyalgia; Z79.51 Long term (current) use of inhaled steroids; Z79.890 Hormone replacement therapy; Z79.899 Other long term (current) drug therapy; Z82.49 Family history of ischemic heart disease and other diseases of the circulatory system; Z86.73 Personal history of transient ischemic attack (TIA), and cerebral infarction without residual deficits; Z87.891 Personal history of nicotine dependence; Z90.710 Acquired absence of both cervix and uterus; Z96.611 Presence of right artificial shoulder joint; Z96.651 Presence of right artificial knee joint; Z98.1 Arthrodesis status; Z88.5 Allergy status to narcotic agent; Z88.2 Allergy status to sulfonamides; Z88.8 Allergy status to other drugs, medicaments and biological substances; Z90.49 Acquired absence of other specified parts of digestive tract; Z99.81 Dependence on supplemental oxygen
CPT/HCPCS: 36415; 71046; 80048; 80053; 80061; 82550; 82553; 83735; 84443; 84484; 85025; 85610; 85730; 93005; 94640; 96361; 96365; 96367; 99285

== ENCOUNTER 2018-12-05 18:29 | Inpatient (IN) | payer MEDICARE ==
[2018-12-05] MEDS ORDERED: MORPHINE SULFATE 4 MG/ML SYRINGE IV STA (18:43)
[2018-12-05] MEDS ORDERED: SODIUM CHLORIDE 0.9% 1,000 ML IV STA ×2 (18:43→20:07)
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
[2018-12-05 19:30] LABS: Anisocytosis Slight; Basophils % (A) 1 %; Eosinophils # (A) 0.1 k/uL (0-0.7); Eosinophils % (A) 1 %; HCT 40.2 % (34.0-46.0); HGB 12.7 gm/dL (11.4-16.0); Lymphocytes # (A) 0.7 k/uL (1.0-4.8); Lymphocytes % (A) 17 %; MCH 29.4 pg (25.0-35.0); MCHC 31.7 g/dL (31.0-37.0); MCV 92.9 fL (80.0-100.0); Mean Platelet Volume 7.9; Monocytes # (A) 0.4 k/uL (0-1.0); Monocytes % (A) 10 %; Neutrophils # (A) 2.9 k/uL (1.3-7.7); Neutrophils % (A) 69 %; Platelet Count 134 k/uL (150-450); RBC 4.33 m/uL (3.80-5.40); RDW 16.2 % (11.5-15.5); WBC 4.2 k/uL (3.8-10.6)
[2018-12-05 19:44] LABS: Partial Thromboplastin Time 27.6 sec (22.0-30.0); Prothrombin Time 10.6 sec (9.0-12.0)
[2018-12-05 19:45] LABS: Albumin 3.7 g/dL (3.5-5.0); Calcium 8.6 mg/dL (8.4-10.2); Magnesium 2.2 mg/dL (1.6-2.3); Potassium 4.4 mmol/L (3.5-5.1); Total Bilirubin 0.6 mg/dL (0.2-1.3); Total Protein 6.3 g/dL (6.3-8.2)
[2018-12-05] MEDS ORDERED: methylPREDNISolone SOD SUCCI 125 MG/2 ML VIAL IV STA (20:05)
[2018-12-05] MEDS ORDERED: SODIUM CHLORIDE 0.9% 500 ML 500 ML IV STA (20:07)
[2018-12-05 20:15] LABS: D-Dimer 0.61 mg/L FEU (<0.60)
--- NOTE | 2018-12-05 20:16 | XR ---
EXAMINATION TYPE: XR chest 2V DATE OF EXAM: 12/05/2018 COMPARISON: Chest radiograph 11/11/2018 HISTORY: Chest pain, dyspnea, fever TECHNIQUE: Frontal and lateral views of the chest are obtained. FINDINGS: The cardiac silhouette is enlarged. No large pleural effusion. Bibasilar airspace disease is again seen. No pneumothorax. Osseous structures are intact. Evidence of a total right shoulder art hroplasty. Inferior portion of the cervical spine posterior fixation hardware. IMPRESSION: Bibasilar airspace disease which is relatively stable in the interval. Superimposed infection is not excluded.
[2018-12-05] MEDS ORDERED: IPRATROPIUM 0.5 MG/2.5 ML NEBU INHALATION STA (20:40)
[2018-12-05] MEDS ORDERED: ALBUTEROL NEBULIZED 2.5 MG/3 ML INHALATION STA (20:40)
--- NOTE | 2018-12-05 21:00 | CT ---
EXAMINATION TYPE: CT angio chest DATE OF EXAM: 12/05/2018 COMPARISON: NONE HISTORY: Chest pain and SOB CT DLP: 310.9 mGycm. Automated Exposure Control for Dose Reduction was Utilized. CONTRAST: CTA scan of the thorax is performed with IV Contrast, patient injected with 100 mL of Isovue 370, pul monary embolism protocol. MIP Images are created on CT scanner and reviewed. FINDINGS: LUNGS: Scarring is seen in the left lower lung as well as to a lesser degree in the right lower lung. No pleural effusion or pneumothorax. MEDIASTINUM: There is satisfactory enhancement of the pulmonary artery and its branches, there is no CT evidence for pulmonary embolism. There are no greater than 1 cm hilar or mediastinal lymph nodes. No cardiomegaly or pericardial effusion is seen. OTHER: Large hiatal hernia. Enlarged right adrenal gland with fat attenuation consistent with lipid r ich adenoma. Surgically absent gallbladder. IMPRESSION: 1. No evidence of pulmonary arterial embolism. 2. Left basilar scarring versus atelectasis. 3. Right adrenal adenoma.
[2018-12-05] MEDS ORDERED: LACTULOSE 20 GM/30 ML CUP PO PRN (23:32)
[2018-12-06] MEDS ORDERED: methylPREDNISolone SOD SUCCI 125 MG/2 ML VIAL IV SCH
[2018-12-06] MEDS: HYDROcodone/APAP 10-325MG 1 EACH TAB PO PRN ×4 (00:36→20:16)
[2018-12-06] MEDS: guaiFENesin-Coden 100-10MG/5ML 10 ML CUP PO PRN ×3 (00:37→20:18)
[2018-12-06] MEDS: methylPREDNISolone SOD SUCCI 40 MG/ML 1 ML VIAL IV SCH ×3 (00:39→15:14)
[2018-12-06 00:43] LABS: Creatine Kinase MB 0.7 ng/mL (0.0-2.4)
[2018-12-06] MEDS: IPRATROPIUM-ALBUTEROL 3 ML NEB INHALATION SCH ×7 (00:43→23:12)
[2018-12-06] MEDS: ATORVASTATIN 10 MG TAB PO SCH ×2 (00:47→20:17)
[2018-12-06] MEDS: PREGABALIN 50 MG CAP PO SCH ×4 (00:47→20:17)
[2018-12-06] MEDS: DIPYRIDAMOLE-ASPIRIN 200-25 MG 1 EACH CPMP.12HR PO SCH ×3 (00:53→20:16)
[2018-12-06 02:04] LABS: Glucose,Whole Blood 225 mg/dL (75-99)
[2018-12-06] MEDS: LEVOTHYROXINE 112 MCG TAB PO SCH (06:28)
[2018-12-06 07:04] LABS: Glucose,Whole Blood 180 mg/dL (75-99)
[2018-12-06] MEDS ORDERED: SYMBICORT 160-4.5 MCG INHALER INHALATION SCH (08:00)
[2018-12-06] MEDS ORDERED: IPRATROPIUM-ALBUTEROL 3 ML NEB INHALATION SCH (08:00)
[2018-12-06] MEDS: MAGNESIUM OXIDE 400 MG TAB PO SCH (09:16)
[2018-12-06] MEDS: PANTOPRAZOLE 40 MG TABLET PO SCH (09:16)
[2018-12-06] MEDS: ENOXAPARIN 40 MG/0.4 ML SYRINGE SQ SCH (09:25)
[2018-12-06] MEDS: POLYETHYLENE GLYCOL 3350 17 GM POWD.PACK PO SCH (09:26)
[2018-12-06 11:58] LABS: Glucose,Whole Blood 131 mg/dL (75-99)
[2018-12-06 17:19] LABS: Glucose,Whole Blood 155 mg/dL (75-99)
[2018-12-06] MEDS ORDERED: ACETAMINOPHEN TAB 325 MG TAB PO PRN (18:32)
[2018-12-06] MEDS ORDERED: MELATONIN 3 MG TABLET PO PRN (18:32)
[2018-12-06] MEDS ORDERED: NALOXONE 0.4 MG/ML 1 ML VIAL IV PRN (18:32)
[2018-12-06] MEDS: FORMOTEROL FUMARATE 20 MCG/2 ML NEBU INHALATION SCH (19:42)
[2018-12-06] MEDS: BUDESONIDE 1 MG/2 ML NEBU INHALATION SCH (19:42)
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
[2018-12-06 20:53] LABS: Glucose,Whole Blood 207 mg/dL (75-99)
[2018-12-06] MEDS: ALPRAZolam 0.25 MG TAB PO PRN (22:43)
[2018-12-06] MEDS: INSULIN ASPART 100 UNIT/ML 1 ML 10 ML VIAL SQ SCH (22:54)
[2018-12-07] MEDS: methylPREDNISolone SOD SUCCI 40 MG/ML 1 ML VIAL IV SCH ×4 (00:12→23:41)
[2018-12-07] MEDS: IPRATROPIUM-ALBUTEROL 3 ML NEB INHALATION SCH ×5 (04:39→21:24)
[2018-12-07] MEDS: ALPRAZolam 0.25 MG TAB PO PRN ×3 (05:17→23:35)
[2018-12-07] MEDS: HYDROcodone/APAP 10-325MG 1 EACH TAB PO PRN ×4 (05:17→21:15)
[2018-12-07] MEDS: LEVOTHYROXINE 112 MCG TAB PO SCH (05:17)
[2018-12-07 07:09] LABS: Glucose,Whole Blood 141 mg/dL (75-99)
[2018-12-07] MEDS: BUDESONIDE 1 MG/2 ML NEBU INHALATION SCH ×2 (07:49→21:24)
[2018-12-07] MEDS: FORMOTEROL FUMARATE 20 MCG/2 ML NEBU INHALATION SCH ×2 (07:49→21:24)
[2018-12-07] MEDS: guaiFENesin-Coden 100-10MG/5ML 10 ML CUP PO PRN ×2 (09:34→16:46)
[2018-12-07] MEDS: PREGABALIN 50 MG CAP PO SCH ×3 (09:34→22:30)
[2018-12-07] MEDS: DIPYRIDAMOLE-ASPIRIN 200-25 MG 1 EACH CPMP.12HR PO SCH ×2 (09:35→21:16)
[2018-12-07] MEDS: PANTOPRAZOLE 40 MG TABLET PO SCH (09:35)
[2018-12-07] MEDS: MAGNESIUM OXIDE 400 MG TAB PO SCH (09:36)
[2018-12-07] MEDS: ENOXAPARIN 40 MG/0.4 ML SYRINGE SQ SCH (09:36)
[2018-12-07] MEDS: POLYETHYLENE GLYCOL 3350 17 GM POWD.PACK PO SCH (09:37)
[2018-12-07] MEDS: INSULIN ASPART 100 UNIT/ML 1 ML 10 ML VIAL SQ SCH ×4 (09:37→19:57)
[2018-12-07 11:24] LABS: Glucose,Whole Blood 131 mg/dL (75-99)
[2018-12-07] MEDS: FUROSEMIDE 20 MG TAB PO SCH (11:39)
[2018-12-07] MEDS: AZITHROMYCIN 500 MG TAB PO SCH (11:39)
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
[2018-12-07 17:18] LABS: Glucose,Whole Blood 171 mg/dL (75-99)
[2018-12-07 19:56] LABS: Glucose,Whole Blood 128 mg/dL (75-99)
[2018-12-07] MEDS: ATORVASTATIN 10 MG TAB PO SCH (21:16)
[2018-12-08] MEDS: IPRATROPIUM-ALBUTEROL 3 ML NEB INHALATION SCH ×6 (00:07→18:55)
[2018-12-08] MEDS: LEVOTHYROXINE 112 MCG TAB PO SCH (04:59)
[2018-12-08] MEDS: HYDROcodone/APAP 10-325MG 1 EACH TAB PO PRN ×4 (04:59→21:08)
[2018-12-08 06:41] LABS: Glucose,Whole Blood 201 mg/dL (75-99)
[2018-12-08] MEDS: FORMOTEROL FUMARATE 20 MCG/2 ML NEBU INHALATION SCH ×2 (07:13→19:12)
[2018-12-08] MEDS: BUDESONIDE 1 MG/2 ML NEBU INHALATION SCH ×2 (07:13→18:55)
--- NOTE | 2018-12-08 07:15 | PN ---
PROGRESS NOTE DATE OF SERVICE: 12/07/2018. PRESENTING COMPLAINT: Short of breath. INTERVAL HISTORY: This patient was seen by me yesterday. Admitted with acute COPD exacerbation and pneumonia. Still a bit congested. Eating about 50% of meals. Feels a bit tired. Breathing is a bit better. Sitting up on a chair. REVIEW OF SYSTEMS: Done for constitutional, cardiovascular, GI, pulmonary; relevant findings as above. CURRENT MEDICATIONS: Reviewed that include DuoNeb, IV Solu-Medrol, Zithromax. PHYSICAL EXAMINATION: Temperature 97.6 pulse 102, respirations 16, blood pressure 104/73, pulse ox 94 percent. GENERAL APPEARANCE: Sitting up on a chair, tired. EYES: Pupils equal. Conjunctivae normal. NECK: JVD not raised. Mass not palpable. Respiratory effort increased. LUNGS: Decreased breath sounds. Prolonged expiration. Occasional crackles. CARDIOVASCULAR: 1st and 2nd sounds normal. No edema. ABDOMEN: Soft, nontender. Liver and spleen not palpable. PSYCHIATRY: Alert and oriented x3. Mood and affect anxious-appearing. INVESTIGATIONS: Accu-Cheks are noted. ASSESSMENT: 1. Acute chronic obstructive pulmonary disease exacerbation in an ex-smoker, slow to respond. 2. Pneumonia, suspect gram-negative organism, POA. 3. Chronic fibromyalgia. 4. Gastroesophageal reflux disease. 5. Hyperlipidemia. 6. Essential hypertension. 7. Hypothyroid. 8. Chronic hypoxic respiratory failure on 2 L oxygen at home. 9. Chronic right diaphragm paralysis. 10.Moderate mitral stenosis with severe mitral regurgitation, nonrheumatic. 11.Severe primary osteoarthritis. 12.Chronic pain syndrome. 13.Restless legs syndrome. 14.History of cerebral aneurysm. 15.Chronic urinary stress incontinence. PLAN: Continue with bronchodilators, IV Solu-Medrol. Other medications to continue. The patient is slow to respond. Follow with Pulmonary. MMODL / IJN: [id number] /
[2018-12-08] MEDS: MAGNESIUM OXIDE 400 MG TAB PO SCH (07:33)
[2018-12-08] MEDS: FUROSEMIDE 20 MG TAB PO SCH (07:33)
[2018-12-08] MEDS: PANTOPRAZOLE 40 MG TABLET PO SCH (07:33)
[2018-12-08] MEDS: PREGABALIN 50 MG CAP PO SCH ×3 (07:34→22:31)
[2018-12-08] MEDS: DIPYRIDAMOLE-ASPIRIN 200-25 MG 1 EACH CPMP.12HR PO SCH ×2 (07:34→21:09)
[2018-12-08] MEDS: methylPREDNISolone SOD SUCCI 40 MG/ML 1 ML VIAL IV SCH (07:35)
[2018-12-08] MEDS: AZITHROMYCIN 500 MG TAB PO SCH (07:35)
[2018-12-08] MEDS: ENOXAPARIN 40 MG/0.4 ML SYRINGE SQ SCH (07:35)
[2018-12-08] MEDS: POLYETHYLENE GLYCOL 3350 17 GM POWD.PACK PO SCH (07:36)
[2018-12-08] MEDS: INSULIN ASPART 100 UNIT/ML 1 ML 10 ML VIAL SQ SCH ×4 (07:36→21:09)
[2018-12-08] MEDS ORDERED: methylPREDNISolone SOD SUCCI 125 MG/2 ML VIAL IV STA (09:43)
[2018-12-08] MEDS ORDERED: FUROSEMIDE 10 MG/ML 4 ML VIAL IV STA (09:47)
[2018-12-08 11:40] LABS: Anion Gap 8 mmol/L; Blood Urea Nitrogen 24 mg/dL (7-17); Calcium 8.6 mg/dL (8.4-10.2); Carbon Dioxide 28 mmol/L (22-30); Chloride 104 mmol/L (98-107); Glucose 106 mg/dL (74-99); Potassium 4.3 mmol/L (3.5-5.1); Sodium 140 mmol/L (137-145)
[2018-12-08 12:05] LABS: Glucose,Whole Blood 107 mg/dL (75-99)
[2018-12-08] MEDS: methylPREDNISolone SOD SUCCI 125 MG/2 ML VIAL IV SCH ×3 (12:17→23:57)
[2018-12-08] MEDS: diphenhydrAMINE 25 MG CAP PO PRN (12:25)
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
[2018-12-08 17:18] LABS: Glucose,Whole Blood 198 mg/dL (75-99)
[2018-12-08 20:20] LABS: Glucose,Whole Blood 178 mg/dL (75-99)
[2018-12-08] MEDS: AMMONIUM LACTATE 12% LOTION 225 GM BTL TOPICAL SCH (21:08)
[2018-12-08] MEDS: ATORVASTATIN 10 MG TAB PO SCH (21:09)
[2018-12-08] MEDS: ALPRAZolam 0.25 MG TAB PO PRN (23:58)
--- NOTE | 2018-12-08 23:58 | PN ---
PROGRESS NOTE DATE OF SERVICE: 12/08/2018. PRESENTING COMPLAINT: Shortness of breath. INTERVAL HISTORY: This patient was admitted with severe chronic obstructive pulmonary disease exacerbation and pneumonia. Still congested. Able to eat some food. Seen by Pulmonary earlier today. Plan to do bronchoscopy and lavage tomorrow. Just feels tired and run down, some rattling in the chest. REVIEW OF SYSTEMS: Done for constitutional, cardiovascular, GI, pulmonary; relevant findings as above. CURRENT MEDICATIONS: Reviewed, that include DuoNeb, azithromycin, IV Solu-Medrol 60 every 6 hours. EXAMINATION: Temperature 98.6, pulse 103, respirations 22, blood pressure 112/76, pulse 94 percent 4 L. GENERAL APPEARANCE: Sitting up, tired, awake. EYES: Pupils equal. Conjunctivae normal. NECK: JVD not raised. Mass not palpable. RESPIRATORY: Effort increased LUNGS: Decreased breath sounds. Prolonged expiration and expiratory crackles. CARDIOVASCULAR: 1st and 2nd sounds normal. No edema. ABDOMEN: Soft nontender. Liver and spleen not palpable. PSYCHIATRY: Alert and oriented x3. Mood and affect anxious-appearing. INVESTIGATIONS: Potassium 4.3, BUN 24, creatinine 0.76. Accu-Cheks are noted. ASSESSMENT: 1. Acute severe chronic obstructive pulmonary disease exacerbation in an ex-smoker, slow to respond. 2. Pneumonia suspect gram-negative organism, POA, slow to respond. 3. Chronic fibromyalgia. 4. Gastroesophageal reflux disease. 5. Hyperlipidemia. 6. Essential hypertension. 7. Hypothyroid. 8. Chronic hypoxic respiratory failure on 2 L oxygen at home. 9. Chronic right diaphragm paralysis. 10.Moderate mitral stenosis and severe mitral regurgitation, nonrheumatic. 11.Severe primary osteoarthritis. 12.Chronic pain syndrome. 13.Restless legs syndrome. 14.History of cerebral aneurysm. 15.Chronic urinary stress incontinence. PLAN: Patient is slow to respond. The patient is going to have a bronchoscopy and lavage tomorrow, that should definitely help. Continue bronchodilators, high-dose steroids and other medications. Care was discussed with the patient. MMODL / IJN: [id number] /
[2018-12-09] MEDS: IPRATROPIUM-ALBUTEROL 3 ML NEB INHALATION SCH ×6 (02:40→20:11)
[2018-12-09] MEDS: ONDANSETRON 4 MG/2 ML VIAL IVP PRN (03:27)
[2018-12-09] MEDS: LEVOTHYROXINE 112 MCG TAB PO SCH (05:46)
[2018-12-09] MEDS: methylPREDNISolone SOD SUCCI 125 MG/2 ML VIAL IV SCH ×3 (05:46→19:31)
[2018-12-09 07:16] LABS: Glucose,Whole Blood 171 mg/dL (75-99)
[2018-12-09] MEDS: BUDESONIDE 1 MG/2 ML NEBU INHALATION SCH ×2 (09:13→20:11)
[2018-12-09] MEDS: FORMOTEROL FUMARATE 20 MCG/2 ML NEBU INHALATION SCH ×2 (09:13→20:11)
[2018-12-09] MEDS: AZITHROMYCIN 500 MG TAB PO SCH (10:05)
[2018-12-09] MEDS: INSULIN ASPART 100 UNIT/ML 1 ML 10 ML VIAL SQ SCH ×4 (10:05→21:15)
[2018-12-09] MEDS: DIPYRIDAMOLE-ASPIRIN 200-25 MG 1 EACH CPMP.12HR PO SCH ×3 (10:05→21:10)
[2018-12-09] MEDS: PANTOPRAZOLE 40 MG TABLET PO SCH (10:05)
[2018-12-09] MEDS: FUROSEMIDE 20 MG TAB PO SCH ×2 (10:06→13:46)
[2018-12-09] MEDS: POLYETHYLENE GLYCOL 3350 17 GM POWD.PACK PO SCH (10:06)
[2018-12-09] MEDS: MAGNESIUM OXIDE 400 MG TAB PO SCH (10:06)
[2018-12-09] MEDS: ENOXAPARIN 40 MG/0.4 ML SYRINGE SQ SCH ×2 (10:06→13:46)
[2018-12-09] MEDS: PREGABALIN 50 MG CAP PO SCH ×3 (10:06→21:09)
[2018-12-09] MEDS ORDERED: PROPOFOL 10 MG/ML 20 ML VIAL IV ONE (11:06)
[2018-12-09] MEDS ORDERED: LIDOCAINE 1% INJ 10MG/ML (20 ML MDV) ONE (11:06)
[2018-12-09] MEDS ORDERED: ONDANSETRON 4 MG/2 ML VIAL ONE (11:06)
[2018-12-09] MEDS ORDERED: LACTATED RINGERS 1,000 ML IV ONE (11:15)
[2018-12-09] MEDS ORDERED: LIDOCAINE 2% INJ 20 MG/ML INTRATRACH ONE (11:26)
[2018-12-09 12:13] LABS: Glucose,Whole Blood 168 mg/dL (75-99)
--- NOTE | 2018-12-09 12:26 | PCN ---
PROCEDURE NOTE PROCEDURE: Bronchoscopy and random bronchial washings. PREOPERATIVE DIAGNOSIS: COPD exacerbation, persistent cough, unable to clear secretions/severe bronchitis. POSTOPERATIVE DIAGNOSIS: COPD exacerbation, persistent cough, unable to clear secretions/severe bronchitis. ANESTHESIA USED: IV conscious sedation. PROCEDURE DESCRIPTION: The patient was placed in a supine position, she was already prepared according to the bronchoscopy protocol. O2 was applied via nasal cannula and we monitored during the bronchoscopy her O2 saturation continuously, blood pressure was intermittently monitored, and cardiac rhythm was continuously monitored. After adequate IV conscious sedation, a bite block was applied, and the bronchoscope was advanced through the bite block down to the area of the vocal cords. Vocal cords were patent, some yellow secretions were noted around the vocal cords and these were suctioned. Lidocaine was applied over the vocal cords, the bronchoscope was advanced down further to the trachea. A thorough examination was done of the trachea, nereyda, right upper lobe, right upper lobe, right lower lobe, left upper lobe lingula and left lower lobe. There was evidence of significant purulent secretions noted throughout the lungs, mostly in the right middle lobe and right lower lobe. Although there was some secretions and purulence in the right upper lobe, also in the lingula and left lower lobe. All were suctioned, washing was done with normal saline, and all secretions were cleaned out of the airways. Procedure was well tolerated, no evidence of any immediate complications, secretions obtained were sent for different diagnostic cultures. MMODL / IJN: [id number] /
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
[2018-12-09] MEDS ORDERED: AZITHROMYCIN 500 MG TAB PO ONE (16:30)
[2018-12-09 16:53] LABS: Glucose,Whole Blood 188 mg/dL (75-99)
[2018-12-09] MEDS: HYDROcodone/APAP 10-325MG 1 EACH TAB PO PRN ×2 (17:38→23:08)
[2018-12-09] MEDS: AMMONIUM LACTATE 12% LOTION 225 GM BTL TOPICAL SCH ×2 (18:57→21:11)
[2018-12-09 19:57] LABS: Appearance,BF Hazy; Color,BF Red; Nucleated Cells, Body Fluid 2970 /uL; RBC, Body Fluid 7380 /uL
[2018-12-09 20:28] LABS: Glucose,Whole Blood 128 mg/dL (75-99)
[2018-12-09] MEDS: ATORVASTATIN 10 MG TAB PO SCH (21:10)
[2018-12-09] MEDS: ALPRAZolam 0.25 MG TAB PO PRN (23:14)
[2018-12-10] MEDS: IPRATROPIUM-ALBUTEROL 3 ML NEB INHALATION SCH ×6 (00:14→18:47)
--- NOTE | 2018-12-10 01:50 | PN ---
PROGRESS NOTE DATE OF SERVICE: December 09, 2018. PRESENTING COMPLAINT: Short of breath. INTERVAL HISTORY: This patient was seen by me yesterday. Admitted with severe COPD exacerbation and pneumonia. Status post bronchoscopy and lavage today. A lot of purulent secretions taken out. Patient feels much better. Family at the bedside. The patient does not like the hospital food. Sitting up. Breathing is much better. REVIEW OF SYSTEMS: Done for constitutional, cardiovascular, GI, pulmonary; relevant findings as above. CURRENT MEDICATIONS: Reviewed that include DuoNeb, Zithromax, IV Solu-Medrol. PHYSICAL EXAMINATION: VITAL SIGNS: Temperature 98.2, pulse 91, respiratory 20, blood pressure 108/60, pulse ox 99% on 4 L. GENERAL: Sitting up, more comfortable. EYES: Pupils equal. Conjunctivae normal. NECK: JVD not raised. Mass not palpable. RESPIRATORY: Effort increased. LUNGS: Much improved air entry. Minimal crackles. CARDIOVASCULAR: 1st and 2nd sounds normal. No edema. ABDOMEN: Soft, nontender. Liver and spleen not palpable. PSYCHIATRY: Alert and oriented x3. Mood and affect anxious-appearing. INVESTIGATIONS: Accu-Cheks are noted. Potassium 4.3. ASSESSMENT: 1. Acute severe chronic obstructive pulmonary disease exacerbation in an ex-smoker, doing much better after bronchial lavage. 2. Pneumonia suspect gram-negative organism, doing much better. 3. Chronic fibromyalgia. 4. Gastroesophageal reflux disease. 5. Hyperlipidemia. 6. Essential hypertension. 7. Hypothyroid. 8. Chronic hypoxic respiratory failure on 2 L oxygen at home. 9. Chronic right diaphragm paralysis. 10.Moderate mitral stenosis and severe mitral regurgitation, nonrheumatic. 11.Severe primary osteoarthritis. 12.Chronic pain syndrome. 13.Restless legs syndrome. 14.History of cerebral aneurysm. 15.Chronic urinary stress incontinence. PLAN: Care was discussed with the patient and family at the present time. We will cut back on steroids. Patient doing overall much better. Await cultures. MMODL / IJN: [id number] /
[2018-12-10] MEDS: methylPREDNISolone SOD SUCCI 125 MG/2 ML VIAL IV SCH ×3 (02:10→23:25)
[2018-12-10] MEDS: LEVOTHYROXINE 112 MCG TAB PO SCH (06:11)
[2018-12-10] MEDS: HYDROcodone/APAP 10-325MG 1 EACH TAB PO PRN ×2 (07:07→16:07)
[2018-12-10 07:08] LABS: Glucose,Whole Blood 189 mg/dL (75-99)
[2018-12-10] MEDS: INSULIN ASPART 100 UNIT/ML 1 ML 10 ML VIAL SQ SCH ×4 (07:08→20:34)
[2018-12-10] MEDS: BUDESONIDE 1 MG/2 ML NEBU INHALATION SCH ×2 (07:29→18:48)
[2018-12-10] MEDS: FORMOTEROL FUMARATE 20 MCG/2 ML NEBU INHALATION SCH ×2 (07:29→18:58)
[2018-12-10] MEDS: AMMONIUM LACTATE 12% LOTION 225 GM BTL TOPICAL SCH ×2 (08:05→20:35)
[2018-12-10] MEDS: POLYETHYLENE GLYCOL 3350 17 GM POWD.PACK PO SCH (08:06)
[2018-12-10] MEDS: ENOXAPARIN 40 MG/0.4 ML SYRINGE SQ SCH (08:06)
[2018-12-10] MEDS: PANTOPRAZOLE 40 MG TABLET PO SCH (08:08)
[2018-12-10] MEDS: PREGABALIN 50 MG CAP PO SCH ×3 (08:08→20:34)
[2018-12-10] MEDS: AZITHROMYCIN 500 MG TAB PO SCH (08:09)
[2018-12-10] MEDS: DIPYRIDAMOLE-ASPIRIN 200-25 MG 1 EACH CPMP.12HR PO SCH ×2 (08:09→20:37)
[2018-12-10] MEDS: FUROSEMIDE 20 MG TAB PO SCH (08:09)
[2018-12-10] MEDS: MAGNESIUM OXIDE 400 MG TAB PO SCH (08:09)
[2018-12-10 08:48] LABS: Mononuclear WBC,Body Fluid 22 %; Polynuclear WBC,Body Fluid 78 %; Total Cells Counted,Body Fluid 100
[2018-12-10] MEDS ORDERED: methylPREDNISolone SOD SUCCI 40 MG/ML 1 ML VIAL IV SCH (09:00)
[2018-12-10] MEDS: ONDANSETRON ODT 4 MG TAB PO PRN ×2 (10:46→16:07)
[2018-12-10 12:12] LABS: Glucose,Whole Blood 120 mg/dL (75-99)
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
--- NOTE | 2018-12-10 15:51 | XR ---
EXAMINATION TYPE: XR chest 1V portable DATE OF EXAM: 12/10/2018 COMPARISON: 12/05/2018 HISTORY: Chest pain and difficulty breathing TECHNIQUE: Single frontal view of the chest is obtained. FINDINGS: The cardiac silhouette is enlarged. Small bilateral pleural effusion. Bibasilar airspace d isease is again seen. No pneumothorax. Osseous structures are intact. Evidence of a total right shoul silvestre arthroplasty. IMPRESSION: Cardiomegaly with bilateral consolidation and pleural effusion. Correlate for pneumonia versus CHF.
[2018-12-10] MEDS: FLUCONAZOLE ORAL SUSP 1,400 MG/35 ML BOTTLE PO SCH (16:08)
[2018-12-10 17:34] LABS: Glucose,Whole Blood 185 mg/dL (75-99)
[2018-12-10 20:30] LABS: Glucose,Whole Blood 138 mg/dL (75-99)
[2018-12-10] MEDS: ATORVASTATIN 10 MG TAB PO SCH (20:34)
--- NOTE | 2018-12-10 22:51 | PN ---
PROGRESS NOTE DATE OF SERVICE: December 10, 2018. PRESENTING COMPLAINT: Short of breath. INTERVAL HISTORY: This patient admitted with severe chronic obstructive pulmonary disease exacerbation pneumonia, status post bronchoscopy and lavage, had been feeling much better. This morning, had some more wheezing. Seen by Dr. Faustin, who did increase patient's IV Solu-Medrol. The patient also awaiting a formal swallow evaluation. When I walked in the room, patient actually was having [employer] in the whole box, eating comfortably. REVIEW OF SYSTEMS: Done for constitutional, cardiovascular, GI, pulmonary and relevant findings as above. CURRENT MEDICATIONS: Reviewed that include DuoNeb, p.o. Zithromax, p.o. Diflucan, IV Solu-Medrol 60 q.6. PHYSICAL EXAMINATION: VITAL SIGNS: Temperature 98.2, pulse 103, respiration 14, blood pressure 117/73, pulse ox 98 percent. GENERAL APPEARANCE: Sitting up on the bed comfortably eating [employer]. EYES: Pupils equal. Conjunctivae normal. NECK: JVD not raised. Mass not palpable. RESPIRATORY: Effort increased. LUNGS: Improved air entry. Occasional wheezing. Some crackles. CARDIOVASCULAR: First and second sounds normal. No edema. ABDOMEN: Soft, nontender. Liver and spleen not palpable. PSYCHIATRY: Alert and oriented x3. Mood and affect normal. INVESTIGATIONS: Accu-Cheks are noted. The patient's bronchial washings growing Kristy albicans. ASSESSMENT: 1. Severe chronic obstructive pulmonary disease exacerbation in an ex-smoker. 2. Pneumonia suspect gram-negative organism. 3. Chronic fibromyalgia. 4. Gastroesophageal reflux disease. 5. Hyperlipidemia. 6. Essential hypertension. 7. Hypothyroid. 8. Chronic hypoxic respiratory failure on 2 L oxygen at home. 9. Chronic right diaphragm paralysis. 10.Moderate mitral stenosis and severe mitral regurgitation, nonrheumatic. 11.Severe primary osteoarthritis. 12.Chronic pain syndrome. 13.Restless legs syndrome. 14.History of cerebral aneurysm. 15.Chronic urinary stress incontinence. PLAN: The patient had some increased wheezing this morning seen by Dr. Faustin's team. They did increase patient's IV Solu-Medrol. The patient will be on bronchodilators. Patient awaiting modified barium swallow tomorrow. The patient comfortably eating her [employer]. MMODL / IJN: [id number] /
[2018-12-10] MEDS: diphenhydrAMINE 25 MG CAP PO PRN (23:24)
[2018-12-11] MEDS: ALPRAZolam 0.25 MG TAB PO PRN (00:04)
[2018-12-11] MEDS: HYDROcodone/APAP 10-325MG 1 EACH TAB PO PRN ×4 (00:04→22:29)
[2018-12-11] MEDS: IPRATROPIUM-ALBUTEROL 3 ML NEB INHALATION SCH ×7 (00:35→23:40)
[2018-12-11] MEDS: methylPREDNISolone SOD SUCCI 125 MG/2 ML VIAL IV SCH ×3 (05:09→18:00)
[2018-12-11] MEDS: LEVOTHYROXINE 112 MCG TAB PO SCH (05:09)
[2018-12-11] MEDS: ONDANSETRON 4 MG/2 ML VIAL IVP PRN (05:09)
[2018-12-11 06:56] LABS: Glucose,Whole Blood 247 mg/dL (75-99)
[2018-12-11] MEDS: FORMOTEROL FUMARATE 20 MCG/2 ML NEBU INHALATION SCH ×2 (07:15→19:30)
[2018-12-11] MEDS: BUDESONIDE 1 MG/2 ML NEBU INHALATION SCH ×2 (07:15→19:30)
[2018-12-11] MEDS: INSULIN ASPART 100 UNIT/ML 1 ML 10 ML VIAL SQ SCH ×5 (08:26→21:26)
[2018-12-11] MEDS: MAGNESIUM OXIDE 400 MG TAB PO SCH (08:36)
[2018-12-11] MEDS: PANTOPRAZOLE 40 MG TABLET PO SCH (08:36)
[2018-12-11] MEDS: PREGABALIN 50 MG CAP PO SCH ×3 (08:36→21:20)
[2018-12-11] MEDS: FUROSEMIDE 20 MG TAB PO SCH (08:37)
[2018-12-11] MEDS: ENOXAPARIN 40 MG/0.4 ML SYRINGE SQ SCH (08:37)
[2018-12-11] MEDS: AZITHROMYCIN 500 MG TAB PO SCH (08:37)
[2018-12-11] MEDS: DIPYRIDAMOLE-ASPIRIN 200-25 MG 1 EACH CPMP.12HR PO SCH ×2 (08:37→21:20)
[2018-12-11] MEDS: POLYETHYLENE GLYCOL 3350 17 GM POWD.PACK PO SCH (08:39)
[2018-12-11] MEDS: AMMONIUM LACTATE 12% LOTION 225 GM BTL TOPICAL SCH ×2 (08:39→21:20)
[2018-12-11] MEDS: FLUCONAZOLE ORAL SUSP 1,400 MG/35 ML BOTTLE PO SCH (08:39)
[2018-12-11 09:44] VITALS: BMI 31.4
[2018-12-11 11:54] LABS: Glucose,Whole Blood 179 mg/dL (75-99)
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
[2018-12-11 17:02] LABS: Glucose,Whole Blood 138 mg/dL (75-99)
[2018-12-11] MEDS: ATORVASTATIN 10 MG TAB PO SCH (21:20)
[2018-12-11] MEDS: FUROSEMIDE 10 MG/ML 4 ML VIAL IV SCH (21:20)
[2018-12-11 21:21] LABS: Glucose,Whole Blood 191 mg/dL (75-99)
[2018-12-11] MEDS: ONDANSETRON ODT 4 MG TAB PO PRN (22:29)
--- NOTE | 2018-12-11 23:16 | PN ---
PROGRESS NOTE DATE OF SERVICE: 12/11/2018. PRESENTING COMPLAINT: Short of breath. INTERVAL HISTORY: Patient presented with severe COPD exacerbation, pneumonia, status post bronchoscopy and lavage. Did really well after that. Again developed some wheezing. The patient had a modified barium swallow today, that has been negative. Patient has been put back on high-dose steroids by Dr. Faustin. The patient is eating rather comfortably, although some wheezing. REVIEW OF SYSTEMS: Done for constitutional, cardiovascular, GI, pulmonary; relevant findings as above. CURRENT MEDICATIONS: Include Diflucan, IV Solu-Medrol, DuoNeb. PHYSICAL EXAMINATION: VITAL SIGNS: Temperature 97.8, pulse 97, respirations 16, blood pressure 101/68, pulse ox 98% on room air. GENERAL APPEARANCE: Sitting up comfortable. EYES: Pupils equal. Conjunctivae normal. NECK: JVD not raised. Mass not palpable. Respiratory effort normal. LUNGS: Decreased breath sounds. Prolonged expiration and wheezing. CARDIOVASCULAR: 1st and 2nd sounds. No edema. ABDOMEN: Soft nontender. Liver and spleen not palpable. PSYCHIATRY: Alert and oriented x3. Mood and affect normal. INVESTIGATIONS: Modified barium swallow negative for aspiration. Fungal cultures are growing Kristy. ASSESSMENT: 1. Severe chronic obstructive pulmonary disease exacerbation in an ex-smoker. 2. Pneumonia suspect gram-negative organism. 3. Chronic fibromyalgia. 4. Gastroesophageal reflux disease. 5. Bronchial lavage cultures positive for Kristy. 6. Hyperlipidemia. 7. Essential hypertension. 8. Hypothyroid. 9. Chronic hypoxic respiratory failure on 2 L oxygen at home. 10.Chronic right diaphragm paralysis. 11.Moderate mitral stenosis and severe mitral regurgitation, nonrheumatic. 12.Severe primary osteoarthritis. 13.Chronic pain syndrome. 14.Restless leg syndrome. 15.History of cerebral aneurysm. 16.Chronic urinary stress incontinence. PLAN: Discussed with Dr. Faustin today. It is my opinion that could cut back on Solu-Medrol. Will also continue with Diflucan. Continue other medication and treatment plan. Repeat labs. Check a BNP. Check the patient's last echocardiogram. Also patient had a cardiac catheterization June of 2018 that showed normal LV function. MMODL / IJN: [id number] /
[2018-12-12] MEDS: methylPREDNISolone SOD SUCCI 125 MG/2 ML VIAL IV SCH ×4 (00:11→21:57)
[2018-12-12] MEDS: ALPRAZolam 0.25 MG TAB PO PRN (00:11)
[2018-12-12] MEDS: IPRATROPIUM-ALBUTEROL 3 ML NEB INHALATION SCH ×4 (03:15→23:58)
[2018-12-12] MEDS: HYDROcodone/APAP 10-325MG 1 EACH TAB PO PRN (04:38)
[2018-12-12] MEDS: diphenhydrAMINE 25 MG CAP PO PRN (06:00)
[2018-12-12] MEDS: LEVOTHYROXINE 112 MCG TAB PO SCH (06:05)
[2018-12-12 07:07] LABS: Glucose,Whole Blood 230 mg/dL (75-99)
[2018-12-12] MEDS: INSULIN ASPART 100 UNIT/ML 1 ML 10 ML VIAL SQ SCH ×4 (07:12→22:27)
[2018-12-12] MEDS: BUDESONIDE 1 MG/2 ML NEBU INHALATION SCH ×2 (08:00→21:29)
[2018-12-12] MEDS: FORMOTEROL FUMARATE 20 MCG/2 ML NEBU INHALATION SCH ×2 (08:01→21:30)
[2018-12-12] MEDS: PANTOPRAZOLE 40 MG TABLET PO SCH (08:26)
[2018-12-12] MEDS: MAGNESIUM OXIDE 400 MG TAB PO SCH (08:26)
[2018-12-12] MEDS: ENOXAPARIN 40 MG/0.4 ML SYRINGE SQ SCH (08:27)
[2018-12-12] MEDS: PREGABALIN 50 MG CAP PO SCH ×3 (08:27→22:28)
[2018-12-12] MEDS: FUROSEMIDE 10 MG/ML 4 ML VIAL IV SCH ×2 (08:27→22:27)
[2018-12-12] MEDS: AMMONIUM LACTATE 12% LOTION 225 GM BTL TOPICAL SCH ×2 (08:28→22:27)
[2018-12-12 09:21] LABS: Calcium 8.5 mg/dL (8.4-10.2); Potassium 4.6 mmol/L (3.5-5.1)
[2018-12-12] MEDS: DIPYRIDAMOLE-ASPIRIN 200-25 MG 1 EACH CPMP.12HR PO SCH ×2 (09:51→22:27)
[2018-12-12] MEDS: FLUCONAZOLE ORAL SUSP 1,400 MG/35 ML BOTTLE PO SCH (09:51)
[2018-12-12] MEDS: AZITHROMYCIN 500 MG TAB PO SCH (09:51)
[2018-12-12] MEDS: POLYETHYLENE GLYCOL 3350 17 GM POWD.PACK PO SCH (09:51)
[2018-12-12 11:41] LABS: Glucose,Whole Blood 245 mg/dL (75-99)
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
[2018-12-12 18:46] LABS: Glucose,Whole Blood 181 mg/dL (75-99)
[2018-12-12 20:11] LABS: Glucose,Whole Blood 236 mg/dL (75-99)
[2018-12-12 22:19] LABS: Glucose,Whole Blood 166 mg/dL (75-99)
[2018-12-12] MEDS: NITROGLYCERIN SL TABS 0.4 MG TAB SUBLINGUAL PRN ×2 (22:26→22:35)
[2018-12-12] MEDS: ATORVASTATIN 10 MG TAB PO SCH (22:27)
[2018-12-13] MEDS: methylPREDNISolone SOD SUCCI 125 MG/2 ML VIAL IV SCH ×5 (00:50→23:38)
[2018-12-13] MEDS: IPRATROPIUM-ALBUTEROL 3 ML NEB INHALATION SCH ×6 (03:11→23:42)
[2018-12-13] MEDS: HYDROcodone/APAP 10-325MG 1 EACH TAB PO PRN ×3 (04:00→21:20)
[2018-12-13] MEDS: diphenhydrAMINE 25 MG CAP PO PRN (06:25)
[2018-12-13] MEDS: LEVOTHYROXINE 112 MCG TAB PO SCH (06:25)
[2018-12-13 06:28] LABS: Calcium 7.6 mg/dL (8.4-10.2)
--- NOTE | 2018-12-13 06:56 | XR ---
EXAMINATION TYPE: XR chest 1V portable DATE OF EXAM: 12/13/2018 HISTORY: chf/cough. REFERENCE: Previous study dated 12/11/2018. FINDINGS: There is a right shoulder arthroplasty in place. The heart is mildly enlarged. There is right basilar atelectasis. There is left basilar airspace dise ase. There is a small left effusion. The heart is mildly prominent. IMPRESSION: NO SIGNIFICANT INTERVAL CHANGE IN APPEARANCE OF THE CHEST.
[2018-12-13 07:00] LABS: Glucose,Whole Blood 214 mg/dL (75-99)
[2018-12-13 07:16] LABS: Potassium 3.9 mmol/L (3.5-5.1)
[2018-12-13] MEDS: BUDESONIDE 1 MG/2 ML NEBU INHALATION SCH ×2 (09:01→19:55)
[2018-12-13] MEDS: FORMOTEROL FUMARATE 20 MCG/2 ML NEBU INHALATION SCH ×2 (09:02→19:55)
[2018-12-13] MEDS: INSULIN ASPART 100 UNIT/ML 1 ML 10 ML VIAL SQ SCH ×4 (09:07→21:19)
[2018-12-13] MEDS: FLUCONAZOLE ORAL SUSP 1,400 MG/35 ML BOTTLE PO SCH (10:20)
[2018-12-13] MEDS: AMMONIUM LACTATE 12% LOTION 225 GM BTL TOPICAL SCH ×2 (10:21→21:21)
[2018-12-13] MEDS: DIPYRIDAMOLE-ASPIRIN 200-25 MG 1 EACH CPMP.12HR PO SCH ×2 (10:22→21:19)
[2018-12-13] MEDS: AZITHROMYCIN 500 MG TAB PO SCH (10:22)
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
[2018-12-13] MEDS: MAGNESIUM OXIDE 400 MG TAB PO SCH (10:35)
[2018-12-13] MEDS: POLYETHYLENE GLYCOL 3350 17 GM POWD.PACK PO SCH (10:35)
[2018-12-13] MEDS: ENOXAPARIN 40 MG/0.4 ML SYRINGE SQ SCH (10:35)
[2018-12-13] MEDS: PANTOPRAZOLE 40 MG TABLET PO SCH (10:35)
[2018-12-13] MEDS: PREGABALIN 50 MG CAP PO SCH ×3 (10:35→23:38)
[2018-12-13] MEDS: FUROSEMIDE 10 MG/ML 4 ML VIAL IV SCH (10:41)
[2018-12-13 12:19] LABS: Glucose,Whole Blood 181 mg/dL (75-99)
[2018-12-13] MEDS: NITROGLYCERIN SL TABS 0.4 MG TAB SUBLINGUAL PRN ×2 (13:58→14:14)
[2018-12-13 17:08] LABS: Glucose,Whole Blood 132 mg/dL (75-99)
[2018-12-13 19:38] LABS: Glucose,Whole Blood 285 mg/dL (75-99)
[2018-12-13] MEDS: ATORVASTATIN 10 MG TAB PO SCH (21:20)
--- NOTE | 2018-12-13 22:46 | PN ---
PROGRESS NOTE DATE OF SERVICE: 12/12/2018. PRESENTING COMPLAINT: Short of breath. INTERVAL HISTORY: I could not find my note from yesterday. I am dictating the note again. Patient admitted with severe chronic obstructive pulmonary disease exacerbation and pneumonia status post bronchoscopy and lavage. The patient has developed wheezing and some crackles in the chest, otherwise has been tolerating a diet. Does get short of breath rather easily. Otherwise, tolerating his diet rather well. REVIEW OF SYSTEMS: Done for constitutional, cardiovascular, GI, pulmonary and findings as above. CURRENT MEDICATIONS: Reviewed that include Diflucan and IV Solu-Medrol. PHYSICAL EXAMINATION: Temperature 98.3, pulse 92, respiration 16, blood pressure 105/64, pulse ox 96% on room air. GENERAL APPEARANCE: Sitting up, awake. EYES: Pupils equal. Conjunctivae normal. NECK: JVD not raised. Mass not palpable. Respiratory effort increased. LUNGS: Decreased breath sounds on expiration and some wheezing, occasional crackles. CARDIOVASCULAR: 1st and 2nd sounds normal. No edema. ABDOMEN: Soft, nontender. Liver and spleen not palpable. PSYCHIATRY: Alert and oriented x3. Mood and affect slightly anxious-appearing. INVESTIGATIONS: White count 4.6, bicarb 39, BUN 35, creatinine 0.90. ProBNP 2350. ASSESSMENT: 1. Severe chronic obstructive pulmonary disease exacerbation in an ex-smoker, slow to respond. 2. Pneumonia, suspect gram-negative organism. 3. Chronic fibromyalgia. 4. Gastroesophageal reflux disease. 5. Bronchial lavage cultures positive for Kristy. 6. Hyperlipidemia. 7. Essential hypertension. 8. Hypothyroid. 9. Chronic hypoxic respiratory failure on 2 L oxygen at home. 10.Chronic right diaphragm paralysis. 11.Moderate mitral stenosis and severe mitral regurgitation, nonrheumatic. 12.Severe primary osteoarthritis. 13.Chronic pain syndrome. 14.Restless leg syndrome. 15.History of cerebral aneurysm. 16.Chronic urinary stress incontinence. PLAN: Patient remains on the high dose of Solu-Medrol. Continue Diflucan. Continue current medication and treatment plan. MMODL / IJN: [id number] /
--- NOTE | 2018-12-13 22:58 | PN ---
PROGRESS NOTE DATE OF SERVICE: 12/13/2018. PRESENTING COMPLAINT: Short of breath. INTERVAL HISTORY: Patient admitted with severe chronic obstructive pulmonary disease exacerbation, pneumonia, status post bronchoscopy and lavage. The patient did do better for a day, then again started getting crackles in the chest, congested. Not eating well. This morning I was called. Patient was having some suicidal ideation, expressing some thoughts. When I saw the patient she was looking and feeling much better. In any case, psychiatry was consulted. Patient also had complaint of chest pain earlier for which troponins were ordered and also cardiology consultation was initiated. REVIEW OF SYSTEMS: Done for constitutional, cardiovascular, GI, pulmonary; relevant findings as above. CURRENT MEDICATIONS: Current medications reviewed include IV Solu-Medrol, bronchodilators, Diflucan. PHYSICAL EXAMINATION: On examination temperature 98.1, pulse 102, respiration 16, blood pressure 95/55, pulse ox 94 percent on 3 L. GENERAL APPEARANCE: Lying in bed anxious-appearing EYES: Pupils equal. Conjunctivae normal. NECK: JVD not raised. Mass not palpable. Respiratory effort increased. LUNGS: Decreased breath sounds. Prolonged expiration. Some crackles. CARDIOVASCULAR: 1st and 2nd sounds normal. No edema. ABDOMEN: Soft, nontender. Liver and spleen not palpable. PSYCHIATRY: Alert and oriented x3. Mood and affect slightly anxious-appearing. INVESTIGATIONS: Accu-Cheks are noted. Potassium 3.9, bicarb 42, BUN 43, creatinine 0.90, troponin 0.018, 0.016. ASSESSMENT: 1. Severe chronic obstructive pulmonary disease exacerbation in an ex-smoker, slow to respond. 2. Pneumonia, suspect gram-negative organism. 3. Chronic fibromyalgia. 4. Gastroesophageal reflux disease. 5. Bronchial lavage cultures positive for Kristy. Patient on Diflucan. 6. Hyperlipidemia. 7. Essential hypertension. 8. Hypothyroid. 9. Chronic hypoxic respiratory failure on 2 L oxygen at home. 10.Chronic right diaphragm paralysis. 11.Moderate mitral stenosis and severe mitral regurgitation, nonrheumatic. 12.Severe primary osteoarthritis. 13.Chronic pain syndrome. 14.Restless legs syndrome. 15.History of cerebral aneurysm. 16.Chronic urinary stress incontinence. 17.Atypical chest pain but rule out a cardiac cause. 18.Some suicidal ideation expressed earlier, now better. PLAN: Consultations made to Psychiatry and Cardiology. The patient is being followed by Dr. Soto from Pulmonary. Encourage patient to expectorate. Patient did get some Lasix earlier for fluid overload. The patient is now getting contraction alkalosis. The patient also remains on a high dose of IV Solu-Medrol. Remains on IV Lasix. Overall condition slow to respond. Follow. MMODL / IJN: [id number] /
[2018-12-14] MEDS: ALPRAZolam 0.25 MG TAB PO PRN (01:15)
[2018-12-14] MEDS: diphenhydrAMINE 25 MG CAP PO PRN ×2 (01:15→23:26)
[2018-12-14] MEDS: IPRATROPIUM-ALBUTEROL 3 ML NEB INHALATION SCH ×7 (03:18→23:23)
[2018-12-14] MEDS: methylPREDNISolone SOD SUCCI 125 MG/2 ML VIAL IV SCH ×4 (06:27→23:26)
[2018-12-14] MEDS: LEVOTHYROXINE 112 MCG TAB PO SCH (06:27)
[2018-12-14] MEDS: HYDROcodone/APAP 10-325MG 1 EACH TAB PO PRN ×3 (06:31→21:37)
[2018-12-14] MEDS: PREGABALIN 50 MG CAP PO SCH ×3 (07:05→23:20)
[2018-12-14] MEDS: MAGNESIUM OXIDE 400 MG TAB PO SCH (07:06)
[2018-12-14] MEDS: PANTOPRAZOLE 40 MG TABLET PO SCH (07:06)
[2018-12-14] MEDS: POLYETHYLENE GLYCOL 3350 17 GM POWD.PACK PO SCH (07:07)
[2018-12-14] MEDS: FUROSEMIDE 10 MG/ML 4 ML VIAL IV SCH (07:08)
[2018-12-14] MEDS: AZITHROMYCIN 500 MG TAB PO SCH (07:11)
[2018-12-14] MEDS: AMMONIUM LACTATE 12% LOTION 225 GM BTL TOPICAL SCH ×2 (07:11→21:38)
[2018-12-14] MEDS: DIPYRIDAMOLE-ASPIRIN 200-25 MG 1 EACH CPMP.12HR PO SCH ×2 (07:11→21:37)
[2018-12-14] MEDS: ENOXAPARIN 40 MG/0.4 ML SYRINGE SQ SCH (07:11)
[2018-12-14] MEDS: FLUCONAZOLE ORAL SUSP 1,400 MG/35 ML BOTTLE PO SCH (07:12)
[2018-12-14] MEDS: INSULIN ASPART 100 UNIT/ML 1 ML 10 ML VIAL SQ SCH ×4 (07:13→21:38)
[2018-12-14 07:15] LABS: Glucose,Whole Blood 293 mg/dL (75-99)
[2018-12-14 07:47] LABS: Calcium 7.8 mg/dL (8.4-10.2); Potassium 3.6 mmol/L (3.5-5.1)
[2018-12-14] MEDS: FORMOTEROL FUMARATE 20 MCG/2 ML NEBU INHALATION SCH ×2 (07:57→20:01)
[2018-12-14] MEDS: BUDESONIDE 1 MG/2 ML NEBU INHALATION SCH ×2 (07:57→20:01)
[2018-12-14] MEDS: ONDANSETRON 4 MG/2 ML VIAL IVP PRN ×2 (08:25→17:50)
[2018-12-14 11:47] LABS: Glucose,Whole Blood 139 mg/dL (75-99)
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
[2018-12-14 17:11] LABS: Glucose,Whole Blood 216 mg/dL (75-99)
[2018-12-14 20:36] LABS: Glucose,Whole Blood 202 mg/dL (75-99)
[2018-12-14] MEDS: ATORVASTATIN 10 MG TAB PO SCH (21:38)
[2018-12-15] MEDS: ALPRAZolam 0.25 MG TAB PO PRN (01:22)
--- NOTE | 2018-12-15 03:11 | PN ---
PROGRESS NOTE DATE OF SERVICE: December 14, 2018. PRESENTING COMPLAINT: Tired. INTERVAL HISTORY: Patient presented with severe chronic obstructive pulmonary disease exacerbation, pneumonia, status post bronchoscopy and lavage. Breathing is actually a bit better. Tolerating a diet. Because patient expressed suicidal ideations, patient is pending psychiatry evaluation. No further chest pain. REVIEW OF SYSTEMS: Done for constitutional, cardiovascular, GI, pulmonary; relevant findings as above. CURRENT MEDICATIONS: Reviewed that include bronchodilators, IV Solu-Medrol. PHYSICAL EXAMINATION: VITAL SIGNS: Temperature 97.9, pulse 99, respirations 15, blood pressure 110/72, pulse ox 95 percent on 3 L. GENERAL APPEARANCE: Sitting up, comfortable. EYES: Pupils equal. Conjunctivae normal. NECK: JVD not raised. Mass not palpable. RESPIRATORY: Effort normal. LUNGS: Decreased breath sounds. Improved aeration. CARDIOVASCULAR: 1st and 2nd sounds, no edema. ABDOMEN: Soft, nontender. Liver and spleen not palpable. PSYCHIATRY: Alert and oriented x3. Mood and affect slightly anxious-appearing. INVESTIGATIONS: Potassium 3.6, BUN 43, creatinine 0.91. Accu-Cheks are noted. ASSESSMENT: 1. Acute severe chronic obstructive pulmonary disease exacerbation in an ex-smoker. Doing better. 2. Pneumonia suspect gram-negative organism. 3. Chronic fibromyalgia. 4. Gastroesophageal reflux disease. 5. Bronchial lavage, cultures positive for Kristy. Patient on Diflucan. 6. Hyperlipidemia. 7. Essential hypertension. 8. Hypothyroid. 9. Chronic hypoxic respiratory failure on 2 L oxygen at home. 10.Chronic right diaphragm paralysis. 11.Moderate mitral stenosis and severe mitral regurgitation, nonrheumatic. 12.Primary osteoarthritis. 13.Chronic pain syndrome. 14.Restless legs syndrome. 15.History of cerebral aneurysm. 16.Chronic urinary stress incontinence. 17.Atypical chest pain but rule out cardiac cause. The patient had a negative cardiac cath in June of 2018. 18.Suicidal ideation. Patient doing better. Awaiting Psychiatry input. PLAN: Care was discussed with the patient. Patient was reassured. Await psych input. Will cut back on the steroids. MMODL / IJN: [id number] /
[2018-12-15] MEDS: IPRATROPIUM-ALBUTEROL 3 ML NEB INHALATION SCH ×4 (03:22→15:27)
[2018-12-15] MEDS: LEVOTHYROXINE 112 MCG TAB PO SCH (06:23)
[2018-12-15 06:52] LABS: Glucose,Whole Blood 269 mg/dL (75-99)
[2018-12-15] MEDS: PANTOPRAZOLE 40 MG TABLET PO SCH (07:13)
[2018-12-15] MEDS: HYDROcodone/APAP 10-325MG 1 EACH TAB PO PRN ×2 (07:13→16:39)
[2018-12-15] MEDS: PREGABALIN 50 MG CAP PO SCH ×2 (07:14→16:38)
[2018-12-15] MEDS: MAGNESIUM OXIDE 400 MG TAB PO SCH (07:14)
[2018-12-15] MEDS: FUROSEMIDE 10 MG/ML 4 ML VIAL IV SCH (07:15)
[2018-12-15] MEDS: AMMONIUM LACTATE 12% LOTION 225 GM BTL TOPICAL SCH (07:15)
[2018-12-15] MEDS: AZITHROMYCIN 500 MG TAB PO SCH (07:15)
[2018-12-15] MEDS: FLUCONAZOLE ORAL SUSP 1,400 MG/35 ML BOTTLE PO SCH (07:15)
[2018-12-15] MEDS: DIPYRIDAMOLE-ASPIRIN 200-25 MG 1 EACH CPMP.12HR PO SCH (07:16)
[2018-12-15] MEDS: POLYETHYLENE GLYCOL 3350 17 GM POWD.PACK PO SCH (07:16)
[2018-12-15] MEDS: ENOXAPARIN 40 MG/0.4 ML SYRINGE SQ SCH (07:16)
[2018-12-15] MEDS: INSULIN ASPART 100 UNIT/ML 1 ML 10 ML VIAL SQ SCH ×2 (07:17→11:41)
[2018-12-15 07:31] LABS: Basophils % (A) 0 %; Eosinophils % (A) 0 %; HCT 41.5 % (34.0-46.0); HGB 13.5 gm/dL (11.4-16.0); Lymphocytes # (A) 0.3 k/uL (1.0-4.8); Lymphocytes % (A) 3 %; MCH 30.3 pg (25.0-35.0); MCHC 32.5 g/dL (31.0-37.0); MCV 93.1 fL (80.0-100.0); Mean Platelet Volume 8.7; Monocytes # (A) 0.2 k/uL (0-1.0); Monocytes % (A) 3 %; Neutrophils # (A) 7.6 k/uL (1.3-7.7); Neutrophils % (A) 93 %; Platelet Count 140 k/uL (150-450); RBC 4.46 m/uL (3.80-5.40); RDW 15.4 % (11.5-15.5); WBC 8.1 k/uL (3.8-10.6)
[2018-12-15 07:36] LABS: Calcium 7.7 mg/dL (8.4-10.2); Potassium 3.4 mmol/L (3.5-5.1)
[2018-12-15] MEDS: FORMOTEROL FUMARATE 20 MCG/2 ML NEBU INHALATION SCH (07:59)
[2018-12-15] MEDS: BUDESONIDE 1 MG/2 ML NEBU INHALATION SCH (07:59)
[2018-12-15] MEDS ORDERED: methylPREDNISolone SOD SUCCI 40 MG/ML 1 ML VIAL IV SCH (08:00)
[2018-12-15 11:36] LABS: Glucose,Whole Blood 183 mg/dL (75-99)
[2018-12-15] MEDS: ONDANSETRON 4 MG/2 ML VIAL IVP PRN (11:42)
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
[2018-12-15 15:38] VITALS: BP 110/73; RESP 18; TEMP 97.7
[2018-12-15 15:41] VITALS: PULSE 90
[2018-12-15 16:52] LABS: Glucose,Whole Blood 242 mg/dL (75-99)
--- NOTE | 2018-12-15 17:43 | P.DS ---
Providers Date of admission: 12/05/18 20:07 Expected date of discharge: 12/15/18 Attending physician: Tom Murray Consults: 12/06/18 18:32 Consult Physician Routine Consulting Provider: Heidi Grant Consult Reason/Comments: copd Do you want consulting provider notified?: Yes 12/13/18 10:59 Consult Physician Routine Consulting Provider: Joni Combs Consult Reason/Comments: patient reports of "wanting to ". Do you want consulting provider notified?: Already Contacted 12/13/18 15:53 Consult Physician Routine Consulting Provider: Jose Maddox Consult Reason/Comments: CHEST PAIN Do you want consulting provider notified?: Yes Primary care physician: Ajay Ulrich [facility] Course: Final Diagnoses Final Diagnoses: -Acute on chronic hypoxic respiratory failure secondary to Acute COPD exacerbation, pneumonia ruled out as per pulmonary -Status post bronchoscopy, bronchial washings reporting Kristy albicans. -Chest pain, atypical, evaluated by cardiology with acute coronary event ruled out;Negative cardiac enzymes with no EKG evidence of ischemia. 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 Hospital course: This is 73-year-old female admitted with acute hypoxic respiratory failure secondary to acute COPD exacerbation. Status post bronchoscopy with bronchial washings reporting Kristy albicans. Evaluated by cardiology, pulmonary and psychiatry. Maintained on nebulized bronchodilators, steroids, IV antibiotics. Completed 8 days of Zithromax, discontinued as per pulmonary. Evaluated by psychiatry, not suicidal. Adjustment disorder regarding and dying issues with mixed emotions. Cleared by all consults for discharge. Patient is being discharged home in a stable condition with guarded prognosis. EXAM: GENERAL: Alert and oriented 3, no acute distress CARDIOVASCULAR: S1, S2 muffled. Positive murmur. RESPIRATION: Breath sounds diminished in the bases. Occasional scattered rhonchi, no crackles. Occasional fine expiratory wheeze scattered ABDOMEN: Soft, nontender . No guarding. no masses palpable.Bowel sounds heard. NERVOUS SYSTEM: No focal deficits. The impression and plan of care has been dictated as directed. : I performed a history and examination of this patient, discussed the same with the dictator. I agree with the dictator's note ,documented as a scribe. Any additional findings or plans will be noted. Time taken: 35 minutes Patient Condition at Discharge: Stable Plan - Discharge Summary Discharge Rx Participant: No New Discharge Prescriptions: New Ipratropium-Albuterol Nebulize [Duoneb 0.5 mg-3 mg/3 ml Soln] 3 ml INHALATION QID 30 Days #5 box Fluconazole Oral Susp [Diflucan Oral Susp] 200 mg PO DAILY #175 ml Continue Simvastatin [Zocor] 20 mg PO HS rOPINIRole HCL [Requip] 3 mg PO TID Pregabalin [Lyrica] 150 mg PO TID Aspirin/Dipyridamole [Aggrenox 25MG -200MG] 1 cap PO BID Levothyroxine Sodium [Synthroid] 112 mcg PO DAILY Magnesium Oxide 400 mg PO DAILY fentaNYL 12MCG/HR PATCH [Duragesic 12MCG/HR] 1 patch TRANSDERM Q72H Ipratropium-Albuterol Nebulize [Duoneb 0.5 mg-3 mg/3 ml Soln] 3 ml INHALATION RT-TID HYDROcodone/APAP 10-325MG [[place] 10-325] 1 tab PO QID PRN PRN Reason: Pain diphenhydrAMINE [Benadryl] 25 mg PO QID PRN PRN Reason: Itching Nitroglycerin Sl Tabs [Nitrostat] 0.4 mg SUBLINGUAL Q5M PRN PRN Reason: Chest Pain guaiFENesin-Coden 100-10MG/5ML [Robitussin AC] 10 ml PO Q6H PRN ml PRN Reason: Cough Lactulose 20 gm PO DAILY PRN #400 ml PRN Reason: Constipation Ondansetron Odt [Zofran ODT] 4 mg PO Q8HR PRN #10 tab PRN Reason: Nausea Polyethylene Glycol 3350 [Miralax] 17 gm PO DAILY Omeprazole [PriLOSEC] 40 mg PO AC-BRKFST #30 capsule. Budesonide-Formot 160-4.5 Mcg [Symbicort 160-4.5 Mcg Inhaler] 2 puff INHALATION RT-BID Discharge Medication List Simvastatin [Zocor] 20 mg PO HS 11/10/14 [History] Aspirin/Dipyridamole [Aggrenox 25MG -200MG] 1 cap PO BID 01/16/17 [History] Pregabalin [Lyrica] 150 mg PO TID 01/16/17 [History] rOPINIRole HCL [Requip] 3 mg PO TID 01/16/17 [History] Levothyroxine Sodium [Synthroid] 112 mcg PO DAILY 06/04/17 [History] Magnesium Oxide 400 mg PO DAILY 12/31/17 [History] fentaNYL 12MCG/HR PATCH [Duragesic 12MCG/HR] 1 patch TRANSDERM Q72H 12/31/17 [ History] HYDROcodone/APAP 10-325MG [[place] 10-325] 1 tab PO QID PRN 05/06/18 [History] Ipratropium-Albuterol Nebulize [Duoneb 0.5 mg-3 mg/3 ml Soln] 3 ml INHALATION RT -TID 05/06/18 [History] diphenhydrAMINE [Benadryl] 25 mg PO QID PRN 07/28/18 [History] Nitroglycerin Sl Tabs [Nitrostat] 0.4 mg SUBLINGUAL Q5M PRN 09/17/18 [History] Lactulose 20 gm PO DAILY PRN #400 ml 09/24/18 [Rx] guaiFENesin-Coden 100-10MG/5ML [Robitussin AC] 10 ml PO Q6H PRN ml 09/24/18 [Rx ] Ondansetron Odt [Zofran ODT] 4 mg PO Q8HR PRN #10 tab 11/08/18 [Rx] Polyethylene Glycol 3350 [Miralax] 17 gm PO DAILY 11/08/18 [History] Omeprazole [PriLOSEC] 40 mg PO AC-BRKFST #30 capsule. 11/09/18 [Rx] Budesonide-Formot 160-4.5 Mcg [Symbicort 160-4.5 Mcg Inhaler] 2 puff INHALATION RT-BID 12/05/18 [History] Fluconazole Oral Susp [Diflucan Oral Susp] 200 mg PO DAILY #175 ml 12/15/18 [Rx] Ipratropium-Albuterol Nebulize [Duoneb 0.5 mg-3 mg/3 ml Soln] 3 ml INHALATION QID 30 Days #5 box 12/15/18 [Rx] Follow up Appointment(s)/Referral(s): Jan Faustin MD [STAFF PHYSICIAN] - 1 Week Ajay Ulrich DO [Primary Care Provider] - 3 Days [facility] Visiting Nurse, [NON-STAFF] - Sisi Vasquez MD [STAFF PHYSICIAN] - 1 Week Ambulatory/Diagnostic Orders: Complete Blood Count w/diff [LAB.AMB] Time Frame: 3 Days, Location: None Selected
--- NOTE | 2018-12-18 07:16 | FL ---
Modified barium swallow. HISTORY: Dysphagia. Modified barium swallow was performed with the department of speech pathology. The patient was prese nted with various consistencies of barium. There is no evidence for aspiration or penetration. Full report is to follow from the department of speech pathology. Impression: Normal study.
== END 2018-12-15 17:42 | disposition home health service (06) | DRG 166 ==
LOC: EC 18:29 → 4MS4W 20:07 → 4SSUR 21:44
PROVIDERS: ADMIT Hospitalist; ATTEND Hospitalist
PROC: 0B9C8ZZ Drainage of Right Upper Lung Lobe, Via Natural or Artificial Opening Endoscopic (ICD-10-PCS; 2018-12-09)
PROC: 0B9D8ZZ Drainage of Right Middle Lung Lobe, Via Natural or Artificial Opening Endoscopic (ICD-10-PCS; 2018-12-09)
PROC: 0B9H8ZZ Drainage of Lung Lingula, Via Natural or Artificial Opening Endoscopic (ICD-10-PCS; 2018-12-09)
PROC: 0B9F8ZZ Drainage of Right Lower Lung Lobe, Via Natural or Artificial Opening Endoscopic (ICD-10-PCS; 2018-12-09)
PROC: 0B9J8ZZ Drainage of Left Lower Lung Lobe, Via Natural or Artificial Opening Endoscopic (ICD-10-PCS; principal; 2018-12-09 11:00)
DX: J44.1 Chronic obstructive pulmonary disease with (acute) exacerbation (principal); J96.21 Acute and chronic respiratory failure with hypoxia; I50.33 Acute on chronic diastolic (congestive) heart failure; I69.351 Hemiplegia and hemiparesis following cerebral infarction affecting right dominant side; J98.11 Atelectasis; R45.851 Suicidal ideations; I11.0 Hypertensive heart disease with heart failure; J98.6 Disorders of diaphragm; E78.5 Hyperlipidemia, unspecified; E89.0 Postprocedural hypothyroidism; Z87.891 Personal history of nicotine dependence; F43.20 Adjustment disorder, unspecified; F32.9 Major depressive disorder, single episode, unspecified; G25.81 Restless legs syndrome; G89.4 Chronic pain syndrome; I05.2 Rheumatic mitral stenosis with insufficiency; I25.10 Atherosclerotic heart disease of native coronary artery without angina pectoris; I25.2 Old myocardial infarction; I27.20 Pulmonary hypertension, unspecified; I48.91 Unspecified atrial fibrillation; K21.9 Gastro-esophageal reflux disease without esophagitis; K44.9 Diaphragmatic hernia without obstruction or gangrene; M19.91 Primary osteoarthritis, unspecified site; M79.7 Fibromyalgia; N39.3 Stress incontinence (female) (male); Z79.51 Long term (current) use of inhaled steroids; Z79.890 Hormone replacement therapy; Z79.899 Other long term (current) drug therapy; Z79.82 Long term (current) use of aspirin; Z82.49 Family history of ischemic heart disease and other diseases of the circulatory system; Z90.710 Acquired absence of both cervix and uterus; Z96.611 Presence of right artificial shoulder joint; Z96.651 Presence of right artificial knee joint; Z98.1 Arthrodesis status; Z99.81 Dependence on supplemental oxygen; Z87.01 Personal history of pneumonia (recurrent); Z98.42 Cataract extraction status, left eye; Z98.41 Cataract extraction status, right eye; Z88.1 Allergy status to other antibiotic agents; Z88.5 Allergy status to narcotic agent; Z88.2 Allergy status to sulfonamides; Z79.891 Long term (current) use of opiate analgesic
CPT/HCPCS: 31624; 36415; 71045; 71046; 71275; 74230; 80048; 80053; 82550; 82553; 83690; 83735; 83880; 84484; 85025; 85379; 85610; 85730; 87070; 87102; 87116; 87205; 87206; 87502; 89050; 93005; 94640; 94644; 94667; 94668; 94760; 96361; 96374; 96375; 99291

== ENCOUNTER 2018-12-26 08:56 | Inpatient (IN) | payer MEDICARE ==
[2018-12-26] MEDS ORDERED: ASPIRIN 81 MG PO STA (08:59)
[2018-12-26] MEDS ORDERED: NITROGLYCERIN OINT 1 INCH/GM PACKET TOPICAL STA (08:59)
[2018-12-26] MEDS ORDERED: SODIUM CHLORIDE 0.9% 500 ML 500 ML IV STA (08:59)
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
[2018-12-26 09:35] LABS: Anisocytosis Slight; Basophils % (A) 1 %; Eosinophils % (A) 1 %; HCT 42.6 % (34.0-46.0); HGB 13.7 gm/dL (11.4-16.0); Lymphocytes # (A) 0.8 k/uL (1.0-4.8); Lymphocytes % (A) 16 %; MCH 30.4 pg (25.0-35.0); MCHC 32.2 g/dL (31.0-37.0); MCV 94.2 fL (80.0-100.0); Mean Platelet Volume 7.2; Monocytes # (A) 0.2 k/uL (0-1.0); Monocytes % (A) 5 %; Neutrophils # (A) 4.1 k/uL (1.3-7.7); Neutrophils % (A) 77 %; Platelet Count 140 k/uL (150-450); RBC 4.52 m/uL (3.80-5.40); RDW 16.8 % (11.5-15.5); WBC 5.3 k/uL (3.8-10.6)
[2018-12-26] MEDS ORDERED: ONDANSETRON 4 MG/2 ML VIAL IVP STA (09:38)
[2018-12-26 09:45] LABS: ALT 43 U/L (9-52); AST 29 U/L (14-36); Albumin 3.5 g/dL (3.5-5.0); Alkaline Phosphatase 94 U/L (38-126); Anion Gap 4 mmol/L; Blood Urea Nitrogen 14 mg/dL (7-17); Calcium 8.8 mg/dL (8.4-10.2); Carbon Dioxide 27 mmol/L (22-30); Chloride 111 mmol/L (98-107); Glucose 95 mg/dL (74-99); Magnesium 2.5 mg/dL (1.6-2.3); Potassium 5.1 mmol/L (3.5-5.1); Sodium 142 mmol/L (137-145)
[2018-12-26 10:07] LABS: Creatine Kinase 28 U/L (30-135)
--- NOTE | 2018-12-26 10:07 | XR ---
EXAMINATION TYPE: XR chest 2V DATE OF EXAM: 12/26/2018 COMPARISON: Chest radiograph 12/13/2018 HISTORY: Shortness of breath and chest pain TECHNIQUE: Frontal and lateral views of the chest are obtained. FINDINGS: The cardiomediastinal silhouette is unchanged. Bibasilar scarring versus atelectasis persi sts. No sizable pleural effusion. No pneumothorax. Postsurgical changes of the right shoulder and low er cervical spine are stable. IMPRESSION: No acute process. No significant interval change.
[2018-12-26 10:10] LABS: INR 0.9 (<1.2); Prothrombin Time 10.2 sec (9.0-12.0)
[2018-12-26 10:21] LABS: Creatine Kinase MB 0.2 ng/mL (0.0-2.4); Troponin I <0.012 ng/mL (0.000-0.034)
[2018-12-26 10:22] LABS: Partial Thromboplastin Time 21.5 sec (22.0-30.0)
[2018-12-26] MEDS ORDERED: NITROGLYCERIN SL TABS 0.4 MG TAB SUBLINGUAL PRN ×2 (11:37→13:57)
[2018-12-26] MEDS ORDERED: NITROGLYCERIN OINT 1 INCH/GM PACKET TOPICAL SCH (13:00)
[2018-12-26] MEDS ORDERED: LACTULOSE 20 GM/30 ML CUP PO PRN (13:57)
[2018-12-26] MEDS: PREGABALIN 75 MG CAP PO SCH ×2 (14:57→22:08)
[2018-12-26] MEDS: POLYETHYLENE GLYCOL 3350 17 GM POWD.PACK PO SCH (15:11)
[2018-12-26 15:38] LABS: Creatine Kinase 26 U/L (30-135)
[2018-12-26 15:52] LABS: Creatine Kinase MB 0.5 ng/mL (0.0-2.4); Troponin I <0.012 ng/mL (0.000-0.034)
[2018-12-26] MEDS: DIPYRIDAMOLE-ASPIRIN 200-25 MG 1 EACH CPMP.12HR PO SCH (16:49)
[2018-12-26] MEDS: LEVOTHYROXINE 112 MCG TAB PO SCH (16:49)
[2018-12-26] MEDS: IPRATROPIUM-ALBUTEROL 3 ML NEB INHALATION SCH ×2 (17:23→20:20)
[2018-12-26] MEDS: ONDANSETRON ODT 4 MG TAB PO PRN (17:24)
[2018-12-26] MEDS: SYMBICORT 160-4.5 MCG INHALER INHALATION SCH (20:20)
[2018-12-26] MEDS: ONDANSETRON 4 MG/2 ML VIAL IVP PRN (21:22)
[2018-12-26 21:50] LABS: Creatine Kinase 31 U/L (30-135)
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
[2018-12-26 22:04] LABS: Creatine Kinase MB 0.5 ng/mL (0.0-2.4); Troponin I <0.012 ng/mL (0.000-0.034)
[2018-12-26] MEDS: ATORVASTATIN 10 MG TAB PO SCH (22:08)
[2018-12-26] MEDS: HYDROcodone/APAP 10-325MG 1 EACH TAB PO PRN (22:14)
--- NOTE | 2018-12-26 22:44 | CONS ---
CONSULTATION HISTORY: Ms. Scanlon is a 73-year-old female who is followed by Dr. Reginaldo Vasquez, who presented, according to the emergency room note, with chest discomfort. The patient does not remember why she is here. According to her, she has a prior episode of chest discomfort, but not at this point. She has progressive symptoms of dementia. The patient carries diagnosis of congestive heart failure and valvular disease. She underwent cardiac catheterization in June 2018 that revealed mild obstructive disease with 2+ mitral regurgitation and normal ventricular size and systolic function. She had mild aortic stenosis by echocardiography. She has chronic dyspnea on exertion. The tightness in the chest is there a lot of the time. She has had nausea and vomiting recently. Occasional palpitation. No syncope. She has some peripheral edema. She has no history of PND or orthopnea. Her coronary risk factors are positive for hypertension, hyperlipidemia. She is nondiabetic, nonsmoker. MEDICATION: Requip, Duragesic, Zocor, Lyrica, MiraLAX, Prilosec, Synthroid, DuoNeb, [employer] [place], Aggrenox. REVIEW OF SYSTEMS: RESPIRATORY SYSTEM: She has dyspnea on exertion. History of obstructive lung disease. GI SYSTEM: She has nausea and vomiting. No GI bleeding. SYSTEM: No dysuria or hematuria. NERVOUS SYSTEM: She had a prior history of TIA. PHYSICAL EXAMINATION: 73-year-old female, alert, confused at times with poor memory. Blood pressure running in the 90s to 100s with a heart in the 90s. HEAD: Normocephalic. Eyes sclerae anicteric. NECK: Good upstroke, no bruit. LUNGS: Clear to auscultation. HEART: Regular rate and rhythm. S1, S2. No S3. Systolic murmur, no diastolic murmur, no rub. ABDOMEN: Soft, nontender. Positive bowel sounds, no megaly. EXTREMITIES: No edema. Intact distal pulses. LAB DATA: Revealed BUN and creatinine 14 and 0.7. Troponin less than 0.012. Hemoglobin is 13.7, white blood cell of 5.3. EKG revealed a sinus mechanism, normal axis and intervals, normal echocardiogram. IMPRESSION: 1. Chest discomfort atypical for ischemic heart disease, probably noncardiac. The patient underwent cardiac catheterization in June of last year and had no evidence of high-grade stenosis. 2. Chronic dyspnea on exertion with no overt signs of congestive heart failure at this point. 3. History of hyperlipidemia. RECOMMENDATIONS: At this time I see no reason for any further cardiac workup. If she is stable, I would expect that she should be able to be discharged home tomorrow and follow as an outpatient with Dr. Vasquez. We will see her on an as-needed basis. Please feel free to call us for any questions. MMNGUYEN / PAULAN: [id number] /
[2018-12-27] MEDS: DIPYRIDAMOLE-ASPIRIN 200-25 MG 1 EACH CPMP.12HR PO SCH ×3 (00:56→21:04)
[2018-12-27] MEDS ORDERED: MELATONIN 3 MG TABLET PO PRN (01:00)
[2018-12-27 04:25] LABS: Cholesterol 192 mg/dL (<200); HDL Cholesterol 70 mg/dL (40-60); LDL Cholesterol,Calculated 97 mg/dL (0-99); Triglycerides 123 mg/dL (<150)
[2018-12-27] MEDS: LEVOTHYROXINE 112 MCG TAB PO SCH (06:48)
[2018-12-27] MEDS: HYDROcodone/APAP 10-325MG 1 EACH TAB PO PRN ×2 (06:58→15:24)
[2018-12-27] MEDS: ONDANSETRON 4 MG/2 ML VIAL IVP PRN ×2 (08:02→17:42)
[2018-12-27] MEDS: SYMBICORT 160-4.5 MCG INHALER INHALATION SCH ×2 (08:16→19:25)
[2018-12-27] MEDS: IPRATROPIUM-ALBUTEROL 3 ML NEB INHALATION SCH ×4 (08:16→19:25)
[2018-12-27] MEDS: MAGNESIUM OXIDE 400 MG TAB PO SCH (08:57)
[2018-12-27] MEDS: PANTOPRAZOLE 40 MG TABLET PO SCH (08:57)
[2018-12-27] MEDS: PREGABALIN 75 MG CAP PO SCH ×3 (08:58→21:05)
[2018-12-27] MEDS: POLYETHYLENE GLYCOL 3350 17 GM POWD.PACK PO SCH (09:00)
[2018-12-27] MEDS ORDERED: ASPIRIN 325 MG TAB PO SCH (09:00)
[2018-12-27] MEDS: ONDANSETRON ODT 4 MG TAB PO PRN ×2 (11:54→23:30)
--- NOTE | 2018-12-27 15:30 | PN ---
PROGRESS NOTE DATE OF SERVICE: December 27, 2018. PRESENTING COMPLAINT: Vomiting. INTERVAL HISTORY: The patient admitted with episodes of vomiting. Did not eat well last night. This morning, had some chips. Again, threw up. No chest pain. Had a negative cardiac cath. Seen by Cardiology. No further workup. The patient's family at the bedside. REVIEW OF SYSTEMS: Done for constitutional, cardiovascular, GI, pulmonary and relevant findings as above. The patient is far more awake, appears comfortable. CURRENT MEDICATIONS: Reviewed. PHYSICAL EXAMINATION: VITAL SIGNS: Temperature 98.6, pulse 84, respiratory 18, blood pressure 106/66, pulse ox 98% on 3 L. GENERAL APPEARANCE: Lying in bed, comfortable. EYES: Pupils are equal. Conjunctivae normal. NECK: JVD not raised. Mass not palpable. RESPIRATORY: Effort normal. LUNGS: Decreased breath sounds. CARDIOVASCULAR: First and second sounds. No edema. ABDOMEN: Soft, nontender. Liver and spleen not palpable. PSYCHIATRY: Awake, having normal conversation with family. INVESTIGATIONS: Troponin is negative. ASSESSMENT: 1. Possible acute gastroenteritis. The patient has been eating chips. Told to discontinue the same. 2. Chronic obstructive pulmonary disease in an ex-smoker. 3. Chronic fibromyalgia. 4. Gastroesophageal reflux disease. 5. Hyperlipidemia. 6. Essential hypertension. 7. Hypothyroid. 8. Chronic hypoxic respiratory failure on 2 L oxygen at home. 9. Chronic right diaphragm paralysis. 10.Moderate mitral stenosis, severe mitral regurgitation, nonrheumatic. 11.Primary osteoarthritis. 12.Chronic pain syndrome. 13.Restless legs syndrome. 14.History of cerebral aneurysm. 15.Chronic urinary stress incontinence. PLAN: The patient clinically appears to be better. We will give some IV fluids overnight. Add some Reglan for a short burst. We will put the patient on a full liquid diet. I told the patient to avoid any inverted, junk food including chips. Also educated the family about the same. The patient looks much better. I told the nurse to ambulate the patient with supervision, hoping the patient can be discharged home tomorrow. WILLIE / HOLLY: [id number] /
[2018-12-27] MEDS: LACTATED RINGERS 1,000 ML IV SCH (15:45)
[2018-12-27] MEDS ORDERED: METOCLOPRAMIDE 5 MG/ML 2 ML VIAL IVP SCH (16:00)
[2018-12-27] MEDS: ATORVASTATIN 10 MG TAB PO SCH (21:04)
[2018-12-28] MEDS: HYDROcodone/APAP 10-325MG 1 EACH TAB PO PRN ×2 (00:17→08:21)
[2018-12-28] MEDS: LACTATED RINGERS 1,000 ML IV SCH (04:22)
[2018-12-28] MEDS: LEVOTHYROXINE 112 MCG TAB PO SCH (05:58)
[2018-12-28] MEDS: METOCLOPRAMIDE 5 MG TAB PO SCH ×2 (06:03→08:11)
[2018-12-28] MEDS: SYMBICORT 160-4.5 MCG INHALER INHALATION SCH (07:20)
[2018-12-28] MEDS: IPRATROPIUM-ALBUTEROL 3 ML NEB INHALATION SCH ×2 (07:20→11:10)
[2018-12-28] MEDS: PREGABALIN 75 MG CAP PO SCH (08:11)
[2018-12-28] MEDS: MAGNESIUM OXIDE 400 MG TAB PO SCH (08:11)
[2018-12-28] MEDS: DIPYRIDAMOLE-ASPIRIN 200-25 MG 1 EACH CPMP.12HR PO SCH (08:11)
[2018-12-28] MEDS: PANTOPRAZOLE 40 MG TABLET PO SCH (08:11)
[2018-12-28] MEDS: POLYETHYLENE GLYCOL 3350 17 GM POWD.PACK PO SCH (08:11)
[2018-12-28 11:53] VITALS: BP 105/70; PULSE 93; RESP 18; TEMP 98.5
--- NOTE | 2018-12-28 18:10 | DS ---
DISCHARGE SUMMARY DATE OF ADMISSION: 12/26/2018. DATE OF DISCHARGE: 12/28/18. FINAL DIAGNOSES: 1. Acute gastroenteritis including the patient eating processed unhealthy food example chips. 2. Chronic obstructive pulmonary disease in an ex-smoker. 3. Chronic fibromyalgia. 4. Gastroesophageal reflux disease. 5. Hyperlipidemia. 6. Essential hypertension. 7. Hypothyroid. 8. Chronic hypoxic respiratory failure on 2 L oxygen at home. 9. Chronic right diaphragm paralysis. 10.Moderate mitral stenosis, severe mitral regurgitation, nonrheumatic. 11.Primary osteoarthritis multiple joints bilateral. 12.Chronic pain syndrome. 13.Restless legs syndrome. 14.History of cerebral aneurysm. 15.Chronic urinary stress incontinence. HOSPITAL COURSE: This patient with multiple admissions yet again presented with nausea, vomiting. The patient was a bit dehydrated, given IV fluids. The patient again started eating chips. I had a long talk with the patient and the family. At night, again patient requested more chips and I refused the same. By this morning, patient is eating a healthier a diet, doing better. No further nausea or vomiting. Stable to go home. PHYSICAL EXAMINATION: On examination, temp 98.5, pulse 93, respiratory 18, blood pressure 105/70, pulse ox 96 percent on 2 L. LUNGS: Decreased breath sounds. CARDIOVASCULAR: 1st and 2nd sounds normal. PSYCH: AO x3. INVESTIGATIONS: White count 5.3, hemoglobin 10.7, potassium 5.1. Troponin x3 negative. Initially patient had at home complained of chest pain. No further episodes here. Patient had a negative cardiac cath in June of 2018. DISCHARGE MEDICATIONS: 1. Zocor 20 mg q.h.s. 2. Aggrenox 1 capsule p.o. b.i.d. 3. Lyrica 150 mg p.o. t.i.d. 4. Requip 3 mg p.o. t.i.d. 5. Synthroid 112 mcg a day. 6. Magnesium oxide 400 mg p.o. daily. 7. Duragesic 12 mcg every 72 hours. 8. Magnet 10 1 tablet q.i.d. p.r.n. 9. Benadryl 25 mg q.i.d. p.r.n. 10.Nitrostat 0.4 sublingual q.5 p.r.n. 11.Lactulose 20 grams p.o. daily p.r.n. 12.Zofran 4 mg p.o. q.8h p.r.n. 13.MiraLAX 17 grams p.o. daily. 14.Prilosec 40 mg before breakfast. 15.Symbicort 160/4.5, 2 puffs b.i.d. 16.DuoNeb q.i.d. 17.Melatonin 6 mg q.h.s. p.r.n. FOLLOWUP: Follow up with Dr. Ulrich in 3 days. Follow up with Dr. Reginaldo Vasquez in 2 weeks. DIET: Soft bland. Copy to Dr. Ulrich. MMODL / IJN: [id number] /
== END 2018-12-28 15:16 | disposition home or self-care (01) | DRG 392 ==
LOC: EC 08:56 → 1SOBS 11:37 → OBSVTOIN 12-28 08:26
PROVIDERS: ADMIT Hospitalist; ATTEND Hospitalist
DX: K52.9 Noninfective gastroenteritis and colitis, unspecified (principal); J96.11 Chronic respiratory failure with hypoxia; I27.29 Other secondary pulmonary hypertension; I11.0 Hypertensive heart disease with heart failure; I50.9 Heart failure, unspecified; J44.9 Chronic obstructive pulmonary disease, unspecified; J98.6 Disorders of diaphragm; F03.90 Unspecified dementia, unspecified severity, without behavioral disturbance, psychotic disturbance, mood disturbance, and anxiety; E86.0 Dehydration; I35.0 Nonrheumatic aortic (valve) stenosis; I34.0 Nonrheumatic mitral (valve) insufficiency; I34.2 Nonrheumatic mitral (valve) stenosis; I69.998 Other sequelae following unspecified cerebrovascular disease; I69.992 Facial weakness following unspecified cerebrovascular disease; R40.2362 Coma scale, best motor response, obeys commands, at arrival to emergency department; R40.2142 Coma scale, eyes open, spontaneous, at arrival to emergency department; R40.2252 Coma scale, best verbal response, oriented, at arrival to emergency department; M79.7 Fibromyalgia; K21.9 Gastro-esophageal reflux disease without esophagitis; E78.5 Hyperlipidemia, unspecified; I25.2 Old myocardial infarction; K44.9 Diaphragmatic hernia without obstruction or gangrene; M19.91 Primary osteoarthritis, unspecified site; I25.10 Atherosclerotic heart disease of native coronary artery without angina pectoris; E89.0 Postprocedural hypothyroidism; G89.4 Chronic pain syndrome; G25.81 Restless legs syndrome; R26.9 Unspecified abnormalities of gait and mobility; M54.2 Cervicalgia; M54.9 Dorsalgia, unspecified; N39.3 Stress incontinence (female) (male); Z99.81 Dependence on supplemental oxygen; Z79.82 Long term (current) use of aspirin; Z79.890 Hormone replacement therapy; Z79.891 Long term (current) use of opiate analgesic; Z79.51 Long term (current) use of inhaled steroids; Z79.899 Other long term (current) drug therapy; Z87.01 Personal history of pneumonia (recurrent); Z86.79 Personal history of other diseases of the circulatory system; Z87.891 Personal history of nicotine dependence; Z90.710 Acquired absence of both cervix and uterus; Z96.611 Presence of right artificial shoulder joint; Z96.651 Presence of right artificial knee joint; Z98.1 Arthrodesis status; Z86.59 Personal history of other mental and behavioral disorders; Z88.1 Allergy status to other antibiotic agents; Z88.5 Allergy status to narcotic agent; Z88.2 Allergy status to sulfonamides; Z88.8 Allergy status to other drugs, medicaments and biological substances; Z82.49 Family history of ischemic heart disease and other diseases of the circulatory system
CPT/HCPCS: 36415; 71046; 80053; 80061; 82550; 82553; 83735; 84484; 85025; 85610; 85730; 93005; 94640; 94760; 96374; 99285

== ENCOUNTER 2019-02-25 17:25 | Observation (INO) | payer MEDICARE ==
[2019-02-25 18:58] LABS: Basophils % (A) 1 %; Eosinophils # (A) 0.1 k/uL (0-0.7); Eosinophils % (A) 1 %; HCT 40.6 % (34.0-46.0); HGB 12.9 gm/dL (11.4-16.0); Lymphocytes # (A) 1.2 k/uL (1.0-4.8); Lymphocytes % (A) 21 %; MCH 28.9 pg (25.0-35.0); MCHC 31.7 g/dL (31.0-37.0); MCV 91.2 fL (80.0-100.0); Mean Platelet Volume 7.9; Monocytes # (A) 0.4 k/uL (0-1.0); Monocytes % (A) 7 %; Neutrophils # (A) 3.8 k/uL (1.3-7.7); Neutrophils % (A) 68 %; Platelet Count 143 k/uL (150-450); RBC 4.45 m/uL (3.80-5.40); RDW 15.3 % (11.5-15.5); WBC 5.6 k/uL (3.8-10.6)
[2019-02-25 19:09] LABS: ALT 28 U/L (9-52); AST 26 U/L (14-36); Albumin 4.2 g/dL (3.5-5.0); Alkaline Phosphatase 119 U/L (38-126); Anion Gap 6 mmol/L; Blood Urea Nitrogen 13 mg/dL (7-17); Calcium 9.4 mg/dL (8.4-10.2); Carbon Dioxide 29 mmol/L (22-30); Chloride 107 mmol/L (98-107); Glucose 99 mg/dL (74-99); Sodium 142 mmol/L (137-145); Total Bilirubin 0.9 mg/dL (0.2-1.3); Total Protein 6.8 g/dL (6.3-8.2)
[2019-02-25] MEDS ORDERED: NITROGLYCERIN SL TABS 0.4 MG TAB SUBLINGUAL STA ×3 (19:12)
[2019-02-25] MEDS ORDERED: ASPIRIN 81 MG PO STA (19:12)
[2019-02-25] MEDS ORDERED: ONDANSETRON 4 MG/2 ML VIAL IVP STA (19:12)
[2019-02-25 19:13] LABS: Partial Thromboplastin Time 24.3 sec (22.0-30.0); Prothrombin Time 10.7 sec (9.0-12.0)
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
--- NOTE | 2019-02-25 19:40 | XR ---
EXAMINATION TYPE: XR chest 2V DATE OF EXAM: 02/25/2019 COMPARISON: 12/26/2018 HISTORY: Chest pain TECHNIQUE: Frontal and lateral views of the chest are obtained. FINDINGS: There is some mild linear density in the left lower lung field. The other lung chan are clear. There is no heart failure. Heart size is normal. There is right shoulder prosthesis. IMPRESSION: There is some scarring and atelectasis left lower lobe slightly improved compared to las t exam. No heart failure seen.
[2019-02-25] MEDS ORDERED: NITROGLYCERIN SL TABS 0.4 MG TAB SUBLINGUAL PRN (21:05)
[2019-02-25] MEDS ORDERED: TEMAZEPAM 15 MG CAP PO PRN (23:52)
[2019-02-26] MEDS: NITROGLYCERIN OINT 1 INCH/GM PACKET TOPICAL SCH ×3 (05:02→12:03)
[2019-02-26] MEDS ORDERED: FAMOTIDINE 20 MG TAB PO STA (06:12)
[2019-02-26] MEDS ORDERED: ONDANSETRON ODT 4 MG TAB PO STA (06:13)
[2019-02-26 07:44] LABS: Cholesterol 132 mg/dL (<200); HDL Cholesterol 67 mg/dL (40-60); LDL Cholesterol,Calculated 49 mg/dL (0-99); Triglycerides 78 mg/dL (<150)
[2019-02-26] MEDS: ASPIRIN 325 MG TAB PO SCH (08:15)
[2019-02-26] MEDS: ESCITALOPRAM 10 MG TAB PO SCH (11:22)
[2019-02-26] MEDS: MAGNESIUM OXIDE 400 MG TAB PO SCH (11:22)
[2019-02-26] MEDS: FUROSEMIDE 10 MG TAB PO SCH ×2 (11:22→18:11)
[2019-02-26] MEDS: PANTOPRAZOLE 40 MG TABLET PO SCH (11:22)
[2019-02-26] MEDS: PREGABALIN 75 MG CAP PO SCH ×3 (11:57→21:03)
[2019-02-26 13:00] VITALS: BMI 31.2
[2019-02-26] MEDS: HYDROcodone/APAP 10-325MG 1 EACH TAB PO PRN ×2 (13:04→21:03)
[2019-02-26] MEDS: PROCHLORPERAZINE 5 MG TAB PO PRN (13:04)
[2019-02-26] MEDS: IPRATROPIUM-ALBUTEROL 3 ML NEB INHALATION SCH ×3 (13:33→20:25)
[2019-02-26] MEDS: SYMBICORT 160-4.5 MCG INHALER INHALATION SCH ×2 (13:33→20:30)
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
[2019-02-26] MEDS ORDERED: ATORVASTATIN 20 MG TAB PO SCH (21:00)
[2019-02-26] MEDS ORDERED: diphenhydrAMINE 50 MG CAP PO SCH (21:00)
[2019-02-26] MEDS ORDERED: MELATONIN 5 MG TABLET PO SCH (21:00)
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
[2019-02-27] MEDS ORDERED: LEVOTHYROXINE 112 MCG TAB PO SCH (06:30)
[2019-02-27] MEDS: IPRATROPIUM-ALBUTEROL 3 ML NEB INHALATION SCH ×3 (07:15→16:10)
[2019-02-27] MEDS: SYMBICORT 160-4.5 MCG INHALER INHALATION SCH (07:15)
[2019-02-27 08:59] VITALS: RESP 16; TEMP 98.2
[2019-02-27] MEDS: FUROSEMIDE 10 MG TAB PO SCH (09:35)
[2019-02-27] MEDS: ASPIRIN 325 MG TAB PO SCH (09:35)
[2019-02-27] MEDS: ESCITALOPRAM 10 MG TAB PO SCH (09:35)
[2019-02-27] MEDS: PREGABALIN 75 MG CAP PO SCH (09:35)
[2019-02-27] MEDS: PANTOPRAZOLE 40 MG TABLET PO SCH (09:35)
[2019-02-27] MEDS: MAGNESIUM OXIDE 400 MG TAB PO SCH (09:36)
[2019-02-27] MEDS: HYDROcodone/APAP 10-325MG 1 EACH TAB PO PRN (09:36)
[2019-02-27 12:16] VITALS: BP 95/60; PULSE 66
[2019-02-27] MEDS: PROCHLORPERAZINE 5 MG TAB PO PRN (13:11)
== END 2019-02-27 16:26 | disposition home or self-care (01) ==
LOC: EC 17:25 → 1SOBS 21:06
PROVIDERS: ADMIT Hospitalist; ATTEND Hospitalist
DX: K29.00 Acute gastritis without bleeding (principal); R07.89 Other chest pain; I11.0 Hypertensive heart disease with heart failure; I50.9 Heart failure, unspecified; J96.11 Chronic respiratory failure with hypoxia; J44.9 Chronic obstructive pulmonary disease, unspecified; I27.29 Other secondary pulmonary hypertension; Z99.81 Dependence on supplemental oxygen; E78.5 Hyperlipidemia, unspecified; I08.0 Rheumatic disorders of both mitral and aortic valves; M19.91 Primary osteoarthritis, unspecified site; I25.10 Atherosclerotic heart disease of native coronary artery without angina pectoris; F32.9 Major depressive disorder, single episode, unspecified; R61 Generalized hyperhidrosis; G25.81 Restless legs syndrome; E89.0 Postprocedural hypothyroidism; M79.7 Fibromyalgia; K21.9 Gastro-esophageal reflux disease without esophagitis; I69.992 Facial weakness following unspecified cerebrovascular disease; J98.6 Disorders of diaphragm; I69.998 Other sequelae following unspecified cerebrovascular disease; N39.3 Stress incontinence (female) (male); I67.1 Cerebral aneurysm, nonruptured; G89.4 Chronic pain syndrome; M54.9 Dorsalgia, unspecified; M54.2 Cervicalgia; R26.9 Unspecified abnormalities of gait and mobility; F40.240 Claustrophobia; K44.9 Diaphragmatic hernia without obstruction or gangrene; Z79.890 Hormone replacement therapy; Z79.02 Long term (current) use of antithrombotics/antiplatelets; Z79.51 Long term (current) use of inhaled steroids; Z79.891 Long term (current) use of opiate analgesic; Z79.82 Long term (current) use of aspirin; Z79.899 Other long term (current) drug therapy; Z88.1 Allergy status to other antibiotic agents; Z88.2 Allergy status to sulfonamides; Z88.5 Allergy status to narcotic agent; Z88.8 Allergy status to other drugs, medicaments and biological substances; Z90.49 Acquired absence of other specified parts of digestive tract; Z90.710 Acquired absence of both cervix and uterus; Z96.611 Presence of right artificial shoulder joint; Z98.1 Arthrodesis status; Z96.651 Presence of right artificial knee joint; Z98.42 Cataract extraction status, left eye; Z98.41 Cataract extraction status, right eye; I25.2 Old myocardial infarction; Z87.81 Personal history of (healed) traumatic fracture; Z87.891 Personal history of nicotine dependence; Z87.01 Personal history of pneumonia (recurrent); Z87.440 Personal history of urinary (tract) infections; Z82.49 Family history of ischemic heart disease and other diseases of the circulatory system; Z82.3 Family history of stroke
CPT/HCPCS: 96374; 99285; 36415; 94640 ×4; 94760; 93005; 80061; 80053; 83735; 84484 ×2; 85025; 85610; 85730; 71046; G0378 ×3; S0183 ×2; J2405

== ENCOUNTER 2019-03-01 13:45 | Observation (INO) | payer MEDICARE ==
[2019-03-01] MEDS ORDERED: SODIUM CHLORIDE 0.9% 500 ML 500 ML IV STA (13:51)
[2019-03-01] MEDS: ONDANSETRON 4 MG/2 ML VIAL IVP STA ×2 (14:13→17:30)
[2019-03-01 14:23] LABS: Basophils % (A) 0 %; Eosinophils # (A) 0.1 k/uL (0-0.7); Eosinophils % (A) 2 %; HCT 41.2 % (34.0-46.0); HGB 13.2 gm/dL (11.4-16.0); Lymphocytes # (A) 0.8 k/uL (1.0-4.8); Lymphocytes % (A) 13 %; MCH 28.9 pg (25.0-35.0); MCHC 32.1 g/dL (31.0-37.0); MCV 90.1 fL (80.0-100.0); Mean Platelet Volume 8.1; Monocytes # (A) 0.3 k/uL (0-1.0); Monocytes % (A) 5 %; Neutrophils # (A) 4.8 k/uL (1.3-7.7); Neutrophils % (A) 79 %; Platelet Count 146 k/uL (150-450); RBC 4.58 m/uL (3.80-5.40); RDW 15.2 % (11.5-15.5); WBC 6.1 k/uL (3.8-10.6)
[2019-03-01 14:33] LABS: ALT 19 U/L (9-52); AST 24 U/L (14-36); Albumin 4.1 g/dL (3.5-5.0); Alkaline Phosphatase 104 U/L (38-126); Amylase <30 U/L (30-110); Anion Gap 6 mmol/L; Blood Urea Nitrogen 15 mg/dL (7-17); Calcium 9.1 mg/dL (8.4-10.2); Carbon Dioxide 32 mmol/L (22-30); Chloride 102 mmol/L (98-107); Glucose 109 mg/dL (74-99); Lipase 57 U/L (23-300); Potassium 4.3 mmol/L (3.5-5.1); Sodium 140 mmol/L (137-145); Total Protein 6.7 g/dL (6.3-8.2)
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
--- NOTE | 2019-03-01 15:39 | CT ---
EXAMINATION TYPE: CT abdomen pelvis w con DATE OF EXAM: 03/01/2019 HISTORY: Nausea and vomiting. CT DLP: 990.1mGycm Automated Exposure Control for Dose Reduction was Utilized. CONTRAST: CT scan of the abdomen and pelvis is performed without oral but with IV Contrast, patient injected wi th 100 mL of Isovue 300. COMPARISON: CT abdomen pelvis June 23, 2018 FINDINGS: LUNG BASES: Cardiomegaly with moderate left atrial dilatation is redemonstrated. Calcification at lev el of mitral valve is again seen. There is patchy bibasilar linear scarring and/or atelectasis redemo nstrated. LIVER/GB: Cholecystectomy clips are redemonstrated. PANCREAS: No significant abnormality is seen. SPLEEN: No significant abnormality is seen. ADRENALS: Stable right greater than left in size bilateral adrenal masses. KIDNEYS: There is symmetric cortical medullary uptake and excretion from both kidneys with scattered simple appearing thin-walled cyst bilaterally, left more numerous than right. BOWEL: Surgical sutures involving proximal stomach are redemonstrated with hiatal hernia containing f at and tiny mesenteric vessels as well as portion of stomach all are redemonstrated. No suspicious sm all or large bowel dilatation. Some diverticula in the left and sigmoid colon are redemonstrated. No CT evidence for acute diverticulitis. UTERUS/ADNEXA: Uterus is surgically absent or atrophic in appearance. LYMPH NODES: No greater than 1cm abdominal or pelvic lymph nodes are appreciated. OSSEOUS STRUCTURES: Metallic hardware from right hip surgery is partially imaged. Spine is straighten ed with moderate multilevel disc space narrowing OTHER: Moderate calcified plaque of aorta extends into branch vessels IMPRESSION: No bowel obstruction. No significant new or acute finding is seen to account for patient' s clinical symptoms.
[2019-03-01] MEDS ORDERED: SODIUM CHLORIDE 0.9% 500 ML 500 ML IV ONE (15:54)
[2019-03-01 17:39] LABS: Appearance,Urine Clear (Clear); Bilirubin,Urine Negative (Negative); Blood,Urine Negative (Negative); Color,Urine Yellow; Glucose,Urine (UA) Negative (Negative); Ketones,Urine Negative (Negative); Leukocyte Esterase,Urine Negative (Negative); Nitrite,Urine Negative (Negative); PH, Urine 8.5 (5.0-8.0); Protein,Urine 1+ (Negative); RBC,Urine 5 /hpf (0-5); Squamous Epithelial Cell,Urine <1 /hpf (0-4)
[2019-03-01 17:42] LABS: Specific Gravity,Urine >1.050 (1.001-1.035)
[2019-03-01] MEDS ORDERED: NALOXONE 0.4 MG/ML 1 ML VIAL IV PRN (17:42)
[2019-03-01] MEDS: ONDANSETRON 4 MG/2 ML VIAL IVP SCH (18:22)
[2019-03-01] MEDS: SODIUM CHLORIDE 0.9% 1,000 ML IV SCH (18:22)
[2019-03-01] MEDS ORDERED: HYDROcodone/APAP 10-325MG 1 EACH TAB PO PRN (20:50)
[2019-03-01] MEDS ORDERED: NITROGLYCERIN SL TABS 0.4 MG TAB SUBLINGUAL PRN (20:50)
[2019-03-01] MEDS ORDERED: PROCHLORPERAZINE 5 MG TAB PO PRN (20:50)
[2019-03-01] MEDS ORDERED: ACETAMINOPHEN TAB 325 MG TAB PO PRN (20:52)
[2019-03-01] MEDS ORDERED: ALPRAZolam 0.25 MG TAB PO PRN (20:52)
[2019-03-01] MEDS ORDERED: CALCIUM CARBONATE 500 MG CHEWABLE PO PRN (20:52)
[2019-03-01] MEDS ORDERED: MELATONIN 3 MG TABLET PO PRN (20:52)
[2019-03-01] MEDS: HYDROcodone/APAP 10-325MG 1 EACH TAB PO SCH (23:00)
[2019-03-01] MEDS: DIPYRIDAMOLE-ASPIRIN 200-25 MG 1 EACH CPMP.12HR PO SCH (23:01)
[2019-03-01] MEDS: ATORVASTATIN 10 MG TAB PO SCH (23:01)
[2019-03-01] MEDS: PREGABALIN 75 MG CAP PO SCH (23:01)
[2019-03-01] MEDS: diphenhydrAMINE 50 MG CAP PO SCH (23:01)
[2019-03-01] MEDS: MELATONIN 5 MG TABLET PO SCH (23:02)
[2019-03-02] MEDS: NON-FORMULARY DRUG (Roflumilast [Daliresp] 500 MCG) PO SCH (01:05)
[2019-03-02] MEDS: SODIUM CHLORIDE 0.9% 1,000 ML IV SCH ×2 (03:53→21:52)
[2019-03-02] MEDS: ONDANSETRON 4 MG/2 ML VIAL IVP SCH ×4 (03:53→21:50)
[2019-03-02] MEDS: LEVOTHYROXINE 112 MCG TAB PO SCH (06:00)
[2019-03-02] MEDS: IPRATROPIUM-ALBUTEROL 3 ML NEB INHALATION SCH ×4 (07:36→19:54)
[2019-03-02] MEDS: SYMBICORT 160-4.5 MCG INHALER INHALATION SCH (07:36)
[2019-03-02 07:38] VITALS: RESP 18
[2019-03-02] MEDS: PREGABALIN 75 MG CAP PO SCH ×3 (08:29→21:49)
[2019-03-02] MEDS: PANTOPRAZOLE 40 MG TABLET PO SCH (08:29)
[2019-03-02] MEDS: ESCITALOPRAM 10 MG TAB PO SCH (08:29)
[2019-03-02] MEDS: HYDROcodone/APAP 10-325MG 1 EACH TAB PO SCH ×3 (08:30→21:48)
[2019-03-02] MEDS: MAGNESIUM OXIDE 400 MG TAB PO SCH (08:30)
[2019-03-02] MEDS: DIPYRIDAMOLE-ASPIRIN 200-25 MG 1 EACH CPMP.12HR PO SCH ×2 (08:31→21:48)
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
[2019-03-02] MEDS: MELATONIN 5 MG TABLET PO SCH (21:47)
[2019-03-02] MEDS: diphenhydrAMINE 50 MG CAP PO SCH (21:49)
[2019-03-02] MEDS: ATORVASTATIN 10 MG TAB PO SCH (21:49)
[2019-03-03] MEDS: LEVOTHYROXINE 112 MCG TAB PO SCH (04:23)
[2019-03-03] MEDS: SYMBICORT 160-4.5 MCG INHALER INHALATION SCH (07:00)
[2019-03-03] MEDS: IPRATROPIUM-ALBUTEROL 3 ML NEB INHALATION SCH ×3 (07:00→15:24)
[2019-03-03 07:31] VITALS: BP 95/61; TEMP 97.7
[2019-03-03] MEDS ORDERED: ONDANSETRON 4 MG/2 ML VIAL IVP SCH (09:00)
[2019-03-03] MEDS: ESCITALOPRAM 10 MG TAB PO SCH (09:04)
[2019-03-03] MEDS: DIPYRIDAMOLE-ASPIRIN 200-25 MG 1 EACH CPMP.12HR PO SCH (09:04)
[2019-03-03] MEDS: HYDROcodone/APAP 10-325MG 1 EACH TAB PO SCH (09:04)
[2019-03-03] MEDS: MAGNESIUM OXIDE 400 MG TAB PO SCH (09:05)
[2019-03-03] MEDS: PREGABALIN 75 MG CAP PO SCH (09:05)
[2019-03-03] MEDS: NON-FORMULARY DRUG (Roflumilast [Daliresp] 500 MCG) PO SCH (09:05)
[2019-03-03] MEDS: PANTOPRAZOLE 40 MG TABLET PO SCH (09:05)
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
[2019-03-03] MEDS: SODIUM CHLORIDE 0.9% 1,000 ML IV SCH (09:35)
[2019-03-03] MEDS ORDERED: NA PHOS,M-B/NA PHOS,DI-BA 133 ML ENEMA RECTAL ONE (10:33)
[2019-03-03] MEDS ORDERED: MAGNESIUM HYDROXIDE 2,400 MG/10 ML CUP PO PRN (10:34)
[2019-03-03] MEDS ORDERED: MAGNESIUM HYDROXIDE 2,400 MG/10 ML CUP PO ONE (10:34)
[2019-03-03 10:42] VITALS: PULSE 84
[2019-03-03] MEDS ORDERED: SENNOSIDES-DOCUSATE SODIUM 1 EACH TAB PO SCH (10:45)
--- NOTE | 2019-03-04 00:16 | DS ---
DISCHARGE SUMMARY DATE OF ADMISSION: 03/01/2019. DATE OF DISCHARGE: 03/03/2019. FINAL DIAGNOSES: 1. Acute gastroenteritis, probably viral. 2. Chronic obstructive pulmonary disease in an ex-smoker. 3. Chronic fibromyalgia. 4. Gastroesophageal reflux disease. 5. Hyperlipidemia. 6. Essential hypertension. 7. Hypothyroidism. 8. Chronic hypoxic respiratory failure on 2 L of oxygen. 9. Chronic right diaphragm paralysis. 10.Moderate mitral stenosis nonrheumatic. 11.Severe mitral regurgitation, nonrheumatic. 12.Primary osteoarthritis. 13.Chronic pain syndrome. 14.Restless legs syndrome. 15.Chronic urinary stress incontinence. 16.Secondary pulmonary hypertension. 17.Severe DJD. HOSPITAL COURSE: This patient presented with nausea and vomiting, felt to be a viral gastroenteritis. Settled on its own. The patient is tolerating a soft diet this morning well. No further symptoms. The patient was seen by Dolores from , okayed the patient to be discharged to follow the patient as an outpatient. PHYSICAL EXAMINATION: Temperature 97.7, pulse 72, respirations 18, blood pressure 95/61, pulse ox 97% on 2 L. LUNGS: Decreased breath sounds. CARDIOVASCULAR: 1st and 2nd sounds normal. ABDOMEN: Soft, nontender. LABS: White count 6.1, hemoglobin 13.2. BUN and creatinine normal. DISCHARGE MEDICATIONS: 1. Zocor 20 mg at bedtime. 2. Aggrenox 1 capsule p.o. b.i.d. 3. Lyrica 50 mg p.o. t.i.d. 4. Requip 3 mg p.o. t.i.d. 5. Synthroid 112 mcg p.o. daily. 6. Magnesium oxide 400 mg p.o. daily. 7. Duragesic 12 mcg patch every 72 hours. 8. [place] 10 1 tablet p.o. t.i.d. 9. Benadryl 50 mg at bedtime. 10.Nitrostat 0.4 sublingual every 5 p.r.n. 11.Prilosec 40 mg with breakfast. 12.Symbicort 160/4.5 one puff b.i.d. 13.DuoNeb q.i.d. 14.Lexapro 10 mg p.o. daily. 15.Lasix 20 mg p.o. b.i.d. 16.[place] 10 1 tablet at bedtime p.r.n. 17.Melatonin 5 mg at bedtime. 18.Compazine 5 mg p.o. every 4 p.r.n. 19. 500 mcg p.o. daily. 20.Pepcid 20 mg p.o. b.i.d. FOLLOWUP: 1. Follow up with Dr. Ulrich in 2 days. 2. Follow up with Dr. Leonard on 03/26/2019. DIET: Soft bland. MMODL / IJN: [id number] /
== END 2019-03-03 15:31 | disposition home or self-care (01) ==
LOC: EC 13:45 → 1SOBS 18:05
PROVIDERS: ADMIT Hospitalist; ATTEND Hospitalist
DX: K52.9 Noninfective gastroenteritis and colitis, unspecified (principal); J44.9 Chronic obstructive pulmonary disease, unspecified; Z87.891 Personal history of nicotine dependence; M79.7 Fibromyalgia; K21.9 Gastro-esophageal reflux disease without esophagitis; E78.5 Hyperlipidemia, unspecified; J96.11 Chronic respiratory failure with hypoxia; J98.6 Disorders of diaphragm; I34.0 Nonrheumatic mitral (valve) insufficiency; M19.91 Primary osteoarthritis, unspecified site; G89.4 Chronic pain syndrome; G25.81 Restless legs syndrome; N39.3 Stress incontinence (female) (male); I11.0 Hypertensive heart disease with heart failure; I50.9 Heart failure, unspecified; I27.29 Other secondary pulmonary hypertension; E89.0 Postprocedural hypothyroidism; F32.9 Major depressive disorder, single episode, unspecified; E66.9 Obesity, unspecified; Z68.30 Body mass index [BMI] 30.0-30.9, adult; I25.10 Atherosclerotic heart disease of native coronary artery without angina pectoris; I25.2 Old myocardial infarction; I69.392 Facial weakness following cerebral infarction; M54.9 Dorsalgia, unspecified; K59.00 Constipation, unspecified; K59.03 Drug induced constipation; T40.2X5A Adverse effect of other opioids, initial encounter; M54.12 Radiculopathy, cervical region; R07.89 Other chest pain; E86.0 Dehydration; I69.398 Other sequelae of cerebral infarction; Z90.49 Acquired absence of other specified parts of digestive tract; Z99.81 Dependence on supplemental oxygen; Z98.1 Arthrodesis status; Z87.01 Personal history of pneumonia (recurrent); Z88.5 Allergy status to narcotic agent; Z88.1 Allergy status to other antibiotic agents; Z88.2 Allergy status to sulfonamides; Z79.890 Hormone replacement therapy; Z79.899 Other long term (current) drug therapy; Z79.891 Long term (current) use of opiate analgesic; Z79.51 Long term (current) use of inhaled steroids; Z79.02 Long term (current) use of antithrombotics/antiplatelets
CPT/HCPCS: 96361 ×3; 96376 ×3; 96374; 99285; 36415; 94640 ×4; 93005; 80053; 84443; 82150; 83690; 84484; 85025; 81001; 74177; G0378 ×3; J2405 ×3; Q9967

== ENCOUNTER → 2019-03-31 | Outpatient (CLI) | payer MEDICARE ==
--- NOTE | 2019-03-31 15:13 | BD ---
EXAMINATION TYPE: Axial Bone Density DATE OF EXAM: 03/31/2019 COMPARISON: 12.15.2002 CLINICAL HISTORY: Encounter for screening for osteoporosis. Height: 60 Weight: 182.6 FRAX RISK QUESTIONS: Alcohol (3 or more units per day): no Family History (Parent hip fracture): yes-mother Glucocorticoids (More than 3mos): no (Ex: prednisone, prednisolone, methylprednisolone, dexamethasone, and hydrocortisone). History of Fracture in Adulthood: yes Secondary Osteoporosis: 1. Type 1 Diabetes: no 2. Hyperthyroidism: no 3. Menopause before 45: yes 4. Malnutrition: no 5. Chronic liver disease: no Rheumatoid Arthritis: no Current Tobacco Use: no RISK FACTORS HISTORY OF: Hip Fracture (Right/Left): right When: 5 years ago Spine Fracture: lumbar When: 1984 Surgery to Spine/Hip(right/left)/Wrist (right/left): lumbar 1985/ right hip 5 years ago Family History of Osteoporosis: yes Active: no Diet low in dairy products/other sources of calcium: no Postmenopausal woman: age 30 hysterectomy Frequent falls: yes MEDICATIONS: simvastatin, hydrocodone, lyrica, furosemide, benadryl, ropinirole, omeprazole, nitrogly cerin Thyroid Medications: levothyroxine How Lon years Additional History: EXAM MEASUREMENTS: Bone mineral densitometry was performed using the [employer] System. Bone mineral density about the L hip (g/cm2): 0.609 T Score values are as follows: -----L Neck: -3.1 -----L Total: -2.9 Bone mineral density has: decreased -16.9 % since study of: 12.15.2002 Bone mineral density about the L Wrist (g/cm2): 0.435 T Score values are as follows: -----Dist. R+U: -4.1 -----Prox. R+U: -3.0 -----Radius total: -4.0 Bone mineral density baseline IMPRESSION: Osteoporosis (T Score less than -2.5). There is increased fracture risk and therapy is usually indicated based on age. Re-Screen 1-2 years. NOTE: T-SCORE=SD OF THE YOUNG ADULT MEAN.
== END | disposition home or self-care (01) ==
LOC: RADBDWWP 13:14
PROVIDERS: ATTEND Family Medicine
DX: Z13.820 Encounter for screening for osteoporosis (principal); M81.0 Age-related osteoporosis without current pathological fracture
CPT/HCPCS: 77080

== ENCOUNTER → 2019-04-14 | Outpatient (CLI) | payer MEDICARE ==
--- NOTE | 2019-04-14 15:47 | XR ---
Thoracic spine HISTORY: Pain 3 views of the thoracic spine No comparisons Postop changes are noted in the cervical spine. There is a slight spinal curvature present. Bone mine ralization is reduced. Thoracic vertebral bodies show preserved height and alignment. Is multilevel s pondylosis. Postop changes are noted, surgical suture and coils. Patient is post shoulder arthroplast y. IMPRESSION: No acute abnormality. Thoracic spondylosis. Thoracic MRI may be of benefit. Postop change s. Mild spinal curvature.
== END | disposition home or self-care (01) ==
LOC: RADXRMAIN 14:12
PROVIDERS: ATTEND Family Medicine
DX: M47.814 Spondylosis without myelopathy or radiculopathy, thoracic region (principal); Z98.890 Other specified postprocedural states
CPT/HCPCS: 72070

== ENCOUNTER 2019-05-07 11:19 | Emergency (ER) | payer MEDICARE ==
[2019-05-07] MEDS ORDERED: IPRATROPIUM-ALBUTEROL 3 ML NEB INHALATION STA ×2 (11:32→12:06)
[2019-05-07] MEDS ORDERED: SODIUM CHLORIDE 0.9% 500 ML 500 ML IV STA (12:06)
[2019-05-07 12:30] LABS: Basophils % (A) 0 %; Eosinophils % (A) 0 %; HCT 41.4 % (34.0-46.0); HGB 13.5 gm/dL (11.4-16.0); Lymphocytes # (A) 0.8 k/uL (1.0-4.8); Lymphocytes % (A) 14 %; MCH 28.6 pg (25.0-35.0); MCHC 32.6 g/dL (31.0-37.0); MCV 87.8 fL (80.0-100.0); Mean Platelet Volume 8.7; Monocytes # (A) 0.3 k/uL (0-1.0); Monocytes % (A) 5 %; Neutrophils # (A) 4.2 k/uL (1.3-7.7); Neutrophils % (A) 78 %; Platelet Count 152 k/uL (150-450); RBC 4.71 m/uL (3.80-5.40); WBC 5.3 k/uL (3.8-10.6)
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
[2019-05-07 12:39] LABS: ALT 23 U/L (9-52); AST 20 U/L (14-36); African American GFR (CKD) >90 (>60 ml/min/1.73 sqM); Albumin 3.8 g/dL (3.5-5.0); Alkaline Phosphatase 125 U/L (38-126); Anion Gap 8 mmol/L; Blood Urea Nitrogen 13 mg/dL (7-17); Calcium 8.8 mg/dL (8.4-10.2); Carbon Dioxide 27 mmol/L (22-30); Chloride 106 mmol/L (98-107); Glucose 145 mg/dL (74-99); Magnesium 2.2 mg/dL (1.6-2.3); Sodium 141 mmol/L (137-145); Total Bilirubin 0.8 mg/dL (0.2-1.3); Total Protein 6.3 g/dL (6.3-8.2)
[2019-05-07 12:44] LABS: Partial Thromboplastin Time 24.9 sec (22.0-30.0); Prothrombin Time 10.6 sec (9.0-12.0)
--- NOTE | 2019-05-07 13:08 | XR ---
EXAMINATION TYPE: XR chest 2V DATE OF EXAM: 05/07/2019 COMPARISON: 02/25/2019 TECHNIQUE: PA and lateral views submitted. HISTORY: Difficulty breathing FINDINGS: Postoperative change right shoulder. Diffuse osteopenia with arthropathy of the left shoulder. The he art is enlarged and there is bilateral consolidation small effusion. Diffuse interstitial pattern. Hy pertrophic and degenerative change of the spine. IMPRESSION: Bilateral infiltrate and small effusion correlate for pneumonia. Underlying venous conges tion in the differential diagnosis.
[2019-05-07 14:05] VITALS: BP 108/64; PULSE 64; RESP 16; TEMP 98.4
== END 2019-05-07 14:05 | disposition home or self-care (01) ==
LOC: EC 11:19
DX: J44.9 Chronic obstructive pulmonary disease, unspecified (principal); I25.119 Atherosclerotic heart disease of native coronary artery with unspecified angina pectoris; I11.0 Hypertensive heart disease with heart failure; I50.9 Heart failure, unspecified; M79.7 Fibromyalgia; K21.9 Gastro-esophageal reflux disease without esophagitis; E78.5 Hyperlipidemia, unspecified; I25.2 Old myocardial infarction; M19.90 Unspecified osteoarthritis, unspecified site; E03.9 Hypothyroidism, unspecified; G25.81 Restless legs syndrome; F32.9 Major depressive disorder, single episode, unspecified; J96.10 Chronic respiratory failure, unspecified whether with hypoxia or hypercapnia; Z99.81 Dependence on supplemental oxygen; Z87.891 Personal history of nicotine dependence; Z86.73 Personal history of transient ischemic attack (TIA), and cerebral infarction without residual deficits; Z79.891 Long term (current) use of opiate analgesic; Z79.51 Long term (current) use of inhaled steroids; Z79.82 Long term (current) use of aspirin; Z79.890 Hormone replacement therapy; Z79.899 Other long term (current) drug therapy; Z88.2 Allergy status to sulfonamides; Z88.1 Allergy status to other antibiotic agents; Z88.5 Allergy status to narcotic agent; Z88.8 Allergy status to other drugs, medicaments and biological substances; Z96.651 Presence of right artificial knee joint; Z96.611 Presence of right artificial shoulder joint; Z53.8 Procedure and treatment not carried out for other reasons
CPT/HCPCS: 36415; 71046; 80053; 83735; 83880; 84484; 85025; 85610; 85730; 93005; 94640; 96360; 99285

== ENCOUNTER 2019-06-10 10:35 | Observation (INO) | payer MEDICARE ==
[2019-06-10] MEDS ORDERED: SODIUM CHLORIDE 0.9% 500 ML 500 ML IV STA (11:20)
[2019-06-10] MEDS ORDERED: ASPIRIN 81 MG PO STA (11:20)
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
[2019-06-10 11:46] LABS: Basophils % (A) 0 %; Eosinophils % (A) 0 %; HCT 38.9 % (34.0-46.0); HGB 12.4 gm/dL (11.4-16.0); Lymphocytes # (A) 0.7 k/uL (1.0-4.8); Lymphocytes % (A) 14 %; MCH 29.1 pg (25.0-35.0); MCHC 31.8 g/dL (31.0-37.0); MCV 91.5 fL (80.0-100.0); Mean Platelet Volume 8.4; Monocytes # (A) 0.3 k/uL (0-1.0); Monocytes % (A) 5 %; Neutrophils % (A) 78 %; Platelet Count 138 k/uL (150-450); RBC 4.25 m/uL (3.80-5.40); RDW 15.8 % (11.5-15.5); WBC 5.1 k/uL (3.8-10.6)
[2019-06-10 11:55] LABS: Partial Thromboplastin Time 26.6 sec (22.0-30.0)
[2019-06-10 12:00] LABS: ALT 25 U/L (9-52); AST 24 U/L (14-36); African American GFR (CKD) >90 (>60 ml/min/1.73 sqM); Albumin 3.6 g/dL (3.5-5.0); Alkaline Phosphatase 112 U/L (38-126); Anion Gap 4 mmol/L; Blood Urea Nitrogen 12 mg/dL (7-17); Calcium 8.7 mg/dL (8.4-10.2); Carbon Dioxide 33 mmol/L (22-30); Chloride 103 mmol/L (98-107); Glucose 119 mg/dL (74-99); Magnesium 2.2 mg/dL (1.6-2.3); Non-African American GFR(CKD) 82 (>60 ml/min/1.73 sqM); Potassium 4.6 mmol/L (3.5-5.1); Sodium 140 mmol/L (137-145); Total Bilirubin 0.7 mg/dL (0.2-1.3)
--- NOTE | 2019-06-10 12:08 | XR ---
EXAMINATION TYPE: XR chest 2V DATE OF EXAM: 06/10/2019 COMPARISON: Chest x-ray May 07, 2019 HISTORY: History of CHF with weakness and shortness of breath. TECHNIQUE: Frontal and lateral views of the chest are obtained. FINDINGS: The cardiac silhouette size is stable and within limits of normal. Mild central vascular co ngestion and interstitial edema is present. No new focal infiltrate, pleural effusion, or pneumothora x. Metallic hardware from right shoulder arthroplasty is redemonstrated. Partial visualization of albino gical change in the cervical spine. IMPRESSION: Mild bilateral interstitial edema and central vascular congestion.
[2019-06-10] MEDS ORDERED: NITROGLYCERIN SL TABS 0.4 MG TAB SUBLINGUAL PRN ×2 (12:31→14:54)
[2019-06-10] MEDS: IPRATROPIUM-ALBUTEROL 3 ML NEB INHALATION SCH ×2 (15:37→20:26)
[2019-06-10] MEDS: ESCITALOPRAM 10 MG TAB PO SCH (16:09)
[2019-06-10] MEDS: PREGABALIN 75 MG CAP PO SCH ×2 (16:09→20:21)
[2019-06-10] MEDS: LEVOTHYROXINE 112 MCG TAB PO SCH (16:09)
[2019-06-10] MEDS: PANTOPRAZOLE 40 MG TABLET PO SCH (16:12)
[2019-06-10] MEDS ORDERED: ONDANSETRON 4 MG/2 ML VIAL IVP PRN (16:21)
[2019-06-10] MEDS ORDERED: HYDROcodone/APAP 10-325MG 1 EACH TAB PO PRN (16:21)
[2019-06-10] MEDS: HYDROcodone/APAP 10-325MG 1 EACH TAB PO SCH ×2 (16:44→20:20)
[2019-06-10] MEDS: diphenhydrAMINE 50 MG CAP PO SCH (20:21)
[2019-06-10] MEDS: DIPYRIDAMOLE-ASPIRIN 200-25 MG 1 EACH CPMP.12HR PO SCH (20:21)
[2019-06-10] MEDS: FUROSEMIDE 20 MG TAB PO SCH (20:21)
[2019-06-10] MEDS ORDERED: MELATONIN 5 MG TABLET PO SCH (21:00)
[2019-06-10] MEDS ORDERED: ATORVASTATIN 10 MG TAB PO SCH (21:00)
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
[2019-06-10] MEDS: HEPARIN SODIUM,PORCINE 5,000 UNIT/ML 1 ML VIAL SQ SCH (23:06)
[2019-06-11 04:26] LABS: Cholesterol 123 mg/dL (<200); HDL Cholesterol 67 mg/dL (40-60); LDL Cholesterol,Calculated 46 mg/dL (0-99); Triglycerides 49 mg/dL (<150)
[2019-06-11] MEDS: LEVOTHYROXINE 112 MCG TAB PO SCH (06:34)
--- NOTE | 2019-06-11 07:33 | CONS ---
CONSULTATION Jessica Scanlon is a 73-year-old lady, a patient of Dr. Faustin and Dr. Reginaldo Vasquez. This lady had a cardiac cath in June after a normal dobutamine stress test. She continues to have episodes of chest discomfort and has had hospitalizations and therefore, Dr. Vasquez did a cardiac cath in June of 2018, which revealed mild disease in the LAD. No other significant disease was noted. She comes into the hospital this time complaining of chest pressure. However, the chest discomfort seems to be very atypical. The quality of the discomfort does not suggest any angina. She seems to have some pressure that comes and goes, lasts a few seconds. She has had it on and off for a couple of days. Troponins and EKG are unremarkable. She is resting comfortably without symptoms. PAST MEDICAL HISTORY: 1. Remarkable for a cardiac cath which was unremarkable for a significant disease. 2. Hypertension. 3. Hyperlipidemia. 4. Questionable history of CAD. 5. Possible fibromyalgia. Patient has also COPD and uses home oxygen. She sees Dr. Faustin from a COPD standpoint. She is status post cholecystectomy and appendectomy and has had some joint replacements. She is a former smoker. MEDICATIONS: Medications at home include: Zocor, Aggrenox, Synthroid 112 mcg daily. Duragesic patch and she also takes Lasix and [place]. ALLERGIES: Allergic to CLINDAMYCIN, NYSTATIN, SULFONAMIDES. PHYSICAL EXAMINATION: On examination, blood pressure is 104/60, pulse rate 80 per minute regular. HEENT unremarkable. Fundus was not examined by me. Neck is supple. No JVD. I do not hear a carotid bruit. There is no thyromegaly. Heart exam reveals S1, S2 without any significant murmurs. Lungs reveal scattered rhonchi. Abdomen is soft, nontender. Lower extremities reveal diminished pulses. No edema. Central nervous system is normal. EKG revealed sinus mechanism, no acute changes. IMPRESSION: 1. Atypical chest pain. 2. Hypertension. 3. History of chronic obstructive pulmonary disease. 4. Obesity. RECOMMENDATION: This patient had a cardiac cath within the last 1 year, which was unremarkable. Her pain is atypical. Her troponins are normal. I am recommending that she can be discharged. For now, I will place her on subcu heparin. We will check a D-dimer and if this is normal she can safely be discharged. I discussed my thoughts in detail with the patient. I will await the results of D-dimer. We will place her on subcu heparin. Thank you very much for the consult. WILLIE / HOLLY: [phone] /
[2019-06-11] MEDS: HEPARIN SODIUM,PORCINE 5,000 UNIT/ML 1 ML VIAL SQ SCH (07:58)
[2019-06-11] MEDS: HYDROcodone/APAP 10-325MG 1 EACH TAB PO SCH (07:59)
[2019-06-11] MEDS: PREGABALIN 75 MG CAP PO SCH (07:59)
[2019-06-11] MEDS: FUROSEMIDE 20 MG TAB PO SCH (07:59)
[2019-06-11] MEDS: PANTOPRAZOLE 40 MG TABLET PO SCH (07:59)
[2019-06-11] MEDS ORDERED: SYMBICORT 160-4.5 MCG INHALER INHALATION SCH (08:00)
[2019-06-11] MEDS: DIPYRIDAMOLE-ASPIRIN 200-25 MG 1 EACH CPMP.12HR PO SCH (08:01)
[2019-06-11] MEDS: IPRATROPIUM-ALBUTEROL 3 ML NEB INHALATION SCH ×2 (08:05→15:55)
[2019-06-11] MEDS ORDERED: ASPIRIN 325 MG TAB PO SCH (09:00)
[2019-06-11] MEDS ORDERED: MAGNESIUM OXIDE 400 MG TAB PO SCH (09:00)
[2019-06-11] MEDS ORDERED: NON FORMULARY DRUG (Roflumilast [Daliresp] 500 MCG) PO SCH (09:00)
[2019-06-11] MEDS: diphenhydrAMINE 50 MG CAP PO SCH (11:05)
[2019-06-11] MEDS: ESCITALOPRAM 10 MG TAB PO SCH (11:05)
[2019-06-11 11:45] VITALS: BP 95/59; RESP 18; TEMP 98.1
[2019-06-11 13:11] VITALS: PULSE 90
--- NOTE | 2019-06-24 01:03 | P.DS ---
Providers Date of admission: 06/10/19 12:31 Expected date of discharge: 06/11/19 Attending physician: Nora Negron Consults: 06/10/19 12:31 Consult Physician Urgent Consulting Provider: Christy Saez Consult Reason/Comments: chest pain Do you want consulting provider notified?: Yes Primary care physician: Ajay [facility] Course: Discharge Diagnosis Atypical Chest Pain/ Pressure. ruled of ACS. chronic CHF with diastolic dysfunction coronary artery disease No history of PCI Chronic hypoxic respiratory failure on home oxygen 3-4 L nausea cannul cOPD History of CVA valvular heart disease with moderate mitral stenosisand severe mitral regurgitation history of multiple TIAs evere degenerative disc disease Chronic back pain and neck pain Hypothyroidism Restless leg syndrome previous history of smoking Hospital course. Patient is a 79-year-old female with a known history of COPD on home oxygen, CHF with diastolic dysfunction, history of CT, coronary artery disease with known history of PCI, TIA/CVA with right facial slight drooping and previous admissions with chest pain came to ER with complaints of left retrosternal chest pain/pressure started this morning. Previously patient says that she has not been feeling good for the past 2 days. Patient felt left shoulder pain but Denied any other radiation of the pain. Chest pain yesterday with shortness of breath and lightheadedness. No headache or dizziness. No increased leg swelling. Patient does not report that her pain is worse with deep inspiration. chest -ray showed mild bilateral interstitial edema and cetral ascuoestion. eKG showed l sinus rhythm. BNP 646 Troponin 3 negative patient was continued on telemetry monitoring. EKG and troponin negative. D dimer not elevated. Continued with pain management. DUO nebs. Continued with home medications and follow up closely. Cardiology has seen the pt. . no further intervention was recommended. Discharge PE was done and vital reviewed. Patient Condition at Discharge: Fair Plan - Discharge Summary Discharge Rx Participant: No New Discharge Prescriptions: Continue Simvastatin [Zocor] 20 mg PO HS rOPINIRole HCL [Requip] 3 mg PO TID Pregabalin [Lyrica] 150 mg PO TID Aspirin/Dipyridamole [Aggrenox 25MG -200MG] 1 cap PO BID Levothyroxine Sodium [Synthroid] 112 mcg PO DAILY Magnesium Oxide 400 mg PO DAILY fentaNYL 12MCG/HR PATCH [Duragesic 12MCG/HR] 1 patch TRANSDERM Q72H HYDROcodone/APAP 10-325MG [[place] 10-325] 1 tab PO TID Nitroglycerin Sl Tabs [Nitrostat] 0.4 mg SUBLINGUAL Q5M PRN PRN Reason: Chest Pain Budesonide-Formot 160-4.5 Mcg [Symbicort 160-4.5 Mcg Inhaler] 2 puff INHA LATION RT-BID Ipratropium-Albuterol Nebulize [Duoneb 0.5 mg-3 mg/3 ml Soln] 3 ml INHALATION RT-QID Prochlorperazine [Compazine] 5 mg PO Q4H PRN PRN Reason: Nausea Escitalopram [Lexapro] 10 mg PO DAILY Roflumilast [Daliresp] 500 mcg PO DAILY Melatonin 5 mg PO HS Furosemide [Lasix] 20 mg PO BID HYDROcodone/APAP 10-325MG [[place] 10-325] 1 tab PO HS PRN PRN Reason: Pain No Action Sennosides-Docusate Sodium [Senokot-S] 2 tab PO BID #120 tablet Psyllium Husk (with Sugar) [Metamucil Powder] 6 gm PO DAILY #30 gm Omeprazole [PriLOSEC] 40 mg PO BID #60 capsule.dr Discharge Medication List Simvastatin [Zocor] 20 mg PO HS 11/10/14 [History] Aspirin/Dipyridamole [Aggrenox 25MG -200MG] 1 cap PO BID 01/16/17 [History] Pregabalin [Lyrica] 150 mg PO TID 01/16/17 [History] rOPINIRole HCL [Requip] 3 mg PO TID 01/16/17 [History] Levothyroxine Sodium [Synthroid] 112 mcg PO DAILY 06/04/17 [History] Magnesium Oxide 400 mg PO DAILY 12/31/17 [History] fentaNYL 12MCG/HR PATCH [Duragesic 12MCG/HR] 1 patch TRANSDERM Q72H 12/31/17 [History] HYDROcodone/APAP 10-325MG [[place] 10-325] 1 tab PO TID 05/06/18 [History] Nitroglycerin Sl Tabs [Nitrostat] 0.4 mg SUBLINGUAL Q5M PRN 09/17/18 [History] Budesonide-Formot 160-4.5 Mcg [Symbicort 160-4.5 Mcg Inhaler] 2 puff INHALATION RT-BID 12/05/18 [History] Ipratropium-Albuterol Nebulize [Duoneb 0.5 mg-3 mg/3 ml Soln] 3 ml INHALATION RT-QID 12/26/18 [History] Escitalopram [Lexapro] 10 mg PO DAILY 02/25/19 [History] Furosemide [Lasix] 20 mg PO BID 02/25/19 [History] HYDROcodone/APAP 10-325MG [[place] 10-325] 1 tab PO HS PRN 02/25/19 [History] Melatonin 5 mg PO HS 02/25/19 [History] Prochlorperazine [Compazine] 5 mg PO Q4H PRN 02/25/19 [History] Roflumilast [Daliresp] 500 mcg PO DAILY 02/25/19 [History] Omeprazole [PriLOSEC] 40 mg PO BID #60 capsule. 06/16/19 [Rx] Psyllium Husk (with Sugar) [Metamucil Powder] 6 gm PO DAILY #30 gm 06/16/19 [Rx] Sennosides-Docusate Sodium [Senokot-S] 2 tab PO BID #120 tablet 06/16/19 [Rx] Follow up Appointment(s)/Referral(s): Ajay Ulrich DO [Primary Care Provider] - 1-2 days (please call to make appointment date and time) Sisi Vasquez MD [STAFF PHYSICIAN] - 06/18/19 3:00 pm Patient Instructions/Handouts: Chest Pain (DC) Discharge Disposition: HOME SELF-CARE
== END 2019-06-11 15:53 | disposition home or self-care (01) ==
LOC: EC 10:35 → 1SOBS 12:31
PROVIDERS: ADMIT Hospitalist; ATTEND Hospitalist
DX: R07.89 Other chest pain (principal); R42 Dizziness and giddiness; J44.9 Chronic obstructive pulmonary disease, unspecified; Z99.81 Dependence on supplemental oxygen; I25.2 Old myocardial infarction; I11.0 Hypertensive heart disease with heart failure; I50.32 Chronic diastolic (congestive) heart failure; I25.10 Atherosclerotic heart disease of native coronary artery without angina pectoris; I69.392 Facial weakness following cerebral infarction; E66.9 Obesity, unspecified; Z68.31 Body mass index [BMI] 31.0-31.9, adult; G25.81 Restless legs syndrome; G89.29 Other chronic pain; M54.2 Cervicalgia; E78.5 Hyperlipidemia, unspecified; M54.9 Dorsalgia, unspecified; E89.0 Postprocedural hypothyroidism; J96.11 Chronic respiratory failure with hypoxia; M19.90 Unspecified osteoarthritis, unspecified site; I05.2 Rheumatic mitral stenosis with insufficiency; I27.20 Pulmonary hypertension, unspecified; K21.9 Gastro-esophageal reflux disease without esophagitis; R32 Unspecified urinary incontinence; R26.9 Unspecified abnormalities of gait and mobility; Z98.1 Arthrodesis status; Z79.899 Other long term (current) drug therapy; Z79.890 Hormone replacement therapy; Z79.51 Long term (current) use of inhaled steroids; Z79.82 Long term (current) use of aspirin; Z79.891 Long term (current) use of opiate analgesic; Z88.1 Allergy status to other antibiotic agents; Z88.8 Allergy status to other drugs, medicaments and biological substances; Z88.5 Allergy status to narcotic agent; Z88.2 Allergy status to sulfonamides; Z87.891 Personal history of nicotine dependence; Z87.01 Personal history of pneumonia (recurrent); Z87.440 Personal history of urinary (tract) infections; Z90.49 Acquired absence of other specified parts of digestive tract; Z96.651 Presence of right artificial knee joint; Z96.611 Presence of right artificial shoulder joint; Z82.49 Family history of ischemic heart disease and other diseases of the circulatory system
CPT/HCPCS: 96366 ×3; 96372; 96375; 96365; 99285; 36415; 94640 ×4; 94760; 93005; 85379; 83880; 80061; 80053; 83690; 83735; 84484; 85025; 85610; 85730; 71046; G0378 ×2; J1644; J2405; 96374

== ENCOUNTER 2019-06-14 11:09 | Observation (INO) | payer MEDICARE ==
[2019-06-14] MEDS ORDERED: ONDANSETRON 4 MG/2 ML VIAL IVP STA ×2 (11:31→14:51)
[2019-06-14] MEDS ORDERED: SODIUM CHLORIDE 0.9% 500 ML IV ONE (11:31)
[2019-06-14] MEDS ORDERED: DICYCLOMINE 20 MG TAB PO STA (11:32)
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
[2019-06-14 12:41] LABS: Basophils % (A) 0 %; Eosinophils # (A) 0.1 k/uL (0-0.7); Eosinophils % (A) 1 %; HCT 44.2 % (34.0-46.0); HGB 14.5 gm/dL (11.4-16.0); Lymphocytes # (A) 0.8 k/uL (1.0-4.8); Lymphocytes % (A) 13 %; MCH 29.7 pg (25.0-35.0); MCHC 32.8 g/dL (31.0-37.0); MCV 90.7 fL (80.0-100.0); Mean Platelet Volume 8.2; Monocytes # (A) 0.4 k/uL (0-1.0); Monocytes % (A) 6 %; Neutrophils # (A) 4.7 k/uL (1.3-7.7); Neutrophils % (A) 78 %; Platelet Count 155 k/uL (150-450); RBC 4.87 m/uL (3.80-5.40); RDW 15.6 % (11.5-15.5); WBC 6.1 k/uL (3.8-10.6)
[2019-06-14 12:46] LABS: Albumin 3.9 g/dL (3.5-5.0); Bilirubin, Delta 0.2 mg/dL (0.0-0.2); Bilirubin,Unconjugated 0.9 mg/dL (0.0-1.1); Calcium 8.9 mg/dL (8.4-10.2); Potassium 3.6 mmol/L (3.5-5.1); Total Bilirubin 1.1 mg/dL (0.2-1.3); Total Protein 6.5 g/dL (6.3-8.2)
--- NOTE | 2019-06-14 14:01 | CT ---
EXAMINATION TYPE: CT angio thor/abd pel aorta DATE OF EXAM: 06/14/2019 COMPARISON: Abdomen and pelvis 03/01/2019. Chest 12/05/2018 HISTORY: 73-year-old female Pain in chest, abdomen and pelvis TECHNIQUE: Contiguous axial scanning of the chest, abdomen, and pelvis performed without and with IV Contrast, patient injected with 100 mL of Isovue 370. Coronal/sagittal MIP reconstructions performed. 3-D reconstructions generated on a dedicated independent workstation. CT DLP: 1582.1 mGycm Automated exposure control for dose reduction was used. FINDINGS: Chest: Heart is upper limits of normal in size without pericardial effusion. Coronary vessel calcifications are present. Aorta normal caliber with conventional arch vessel branching anatomy. Initial noncontrast images show no evidence for acute intracranial hematoma. No evidence for aortic dissection. Satisfactory opacification of the pulmonary arterial system. Some respiratory motion artifact limitin g assessment of the smaller segmental and more distal branches. No large central or lobar pulmonary e mbolus. No definite embolus to the proximal segmental level. Mildly enlarged 1.2 cm right tracheobronchial angle lymph node. Borderline to mildly enlarged bilater al hilar lymph nodes measuring 1.1 cm on the right in 8 mm on the left. Strandy atelectasis or scarring in the lungs. Mild diffuse bronchial wall thickening. Some possible pleural based calcification along the right hemidiaphragm is unchanged. No camille consolidation or pleural effusion. ABDOMEN: Moderate sized hiatal hernia containing a simple surgical changes involving the herniated portion of the gastric fundus. Liver borderline enlarged at 17.8 cm. Cholecystectomy clips. Stable 2.6 cm low-density nodule right adrenal gland compatible with a lipid rich adrenal adenoma. Ad ditional nodularity redemonstrated involving the lateral limb left adrenal gland measuring 1.7 cm wit h attenuation compatible with a lipid rich adrenal adenoma. Bilateral renal cysts measuring up to 3.9 cm on the left and 2.0 cm on the right. A couple of nonobstructive right renal calculi measuring up to 3 mm. Spleen and pancreas show no gross abnormality by arterial phase imaging. Some mesh repair along the supraumbilical midline. No dilated small bowel, free fluid, or free air. No mesenteric or retroperitoneal lymphadenopathy. Mild stool burden. Left-sided colonic diverticulosis. No pericolonic inflammatory change. Moderate atherosclerotic calcifications infrarenal abdominal aorta and iliac arteries without aneurys m. Pelvis: Bladder urine distended. Uterus surgically absent. Both ovaries are visualized. No abnormal fluid col lection in the pelvis are pelvic lymphadenopathy. Bones: Dynamic right hip screw fixation. Mild degenerative change of both hips. Degenerative dated levoconve x curvature of the lumbar spine. Degenerative disc disease greatest at L3-L4. No osseous destructive process. Right shoulder arthroplasty. IMPRESSION: 1. NO EVIDENCE FOR AORTIC ANEURYSM OR DISSECTION. 2. SOME RESPIRATORY MOTION ARTIFACTS. NO EVIDENCE FOR PULMONARY EMBOLUS TO THE PROXIMAL SEGMENTAL LEV EL. 3. BRONCHIAL WALL THICKENING SUGGESTS BRONCHITIS OR ASTHMA. SCATTERED CHRONIC SCARRING OR ATELECTASIS BILATERALLY. SOME CALCIFICATION ALONG THE RIGHT HEMIDIAPHRAGM MAY BE SEEN WITH PRIOR PLEURODESIS OR A SEQUELA OF PRIOR HEMOTHORAX/EMPYEMA. 4. REDEMONSTRATED MODERATE-SIZED HERNIA CONTAINING SOME POSTSURGICAL CHANGES. CORRELATE TO THE PRO CEDURE THAT WAS PERFORMED. 5. SOME BORDERLINE AND MILDLY ENLARGED MEDIASTINAL OR HILAR LYMPH NODES (MEASURING UP TO 1.2 CM) APPE AR SMALLER COMPARED TO 12/05/2018 SUGGESTING REACTIVE/POST INFLAMMATORY ETIOLOGY. 6. LIPID RICH ADRENAL ADENOMAS ON BOTH SIDES MEASURING UP TO 2.6 CM. 7. LEFT-SIDED COLONIC DIVERTICULOSIS WITHOUT ACUTE DIVERTICULITIS.
[2019-06-14 14:16] LABS: Appearance,Urine Clear (Clear); Bilirubin,Urine 1+ (Negative); Blood,Urine Negative (Negative); Color,Urine Yellow; Glucose,Urine (UA) Negative (Negative); Ketones,Urine 2+ (Negative); Leukocyte Esterase,Urine Negative (Negative); Nitrite,Urine Negative (Negative); PH, Urine 5.5 (5.0-8.0); Protein,Urine Trace (Negative)
[2019-06-14 14:21] LABS: Specific Gravity,Urine >1.050 (1.001-1.035)
--- NOTE | 2019-06-14 14:28 | XR ---
EXAMINATION TYPE: XR chest 2V DATE OF EXAM: 06/14/2019 COMPARISON: 06/10/2019 TECHNIQUE: PA and lateral views submitted. HISTORY: Pain FINDINGS: Postsurgical change right shoulder. Diffuse interstitial pattern with basilar consolidation and small left effusion. Hypertrophic change of the spine. Hyperinflation suggests COPD. Correlate for hiatal hernia. Pleural-based calcifications are noted on the right. IMPRESSION: 1. Stable chest x-ray correlate for mild central venous congestion or interstitial lung disease with basilar atelectasis or infiltrate and small left effusion. 2. Right basilar pleural calcification correlate for asbestosis related disease.
[2019-06-14] MEDS ORDERED: KETOROLAC 30 MG/ML 1 ML VIAL IVP STA (14:51)
[2019-06-14] MEDS: SODIUM CHLORIDE 0.9% 1,000 ML IV SCH (15:21)
[2019-06-14] MEDS ORDERED: NALOXONE 0.4 MG/ML 1 ML VIAL IV PRN (15:57)
[2019-06-14] MEDS ORDERED: ONDANSETRON 4 MG/2 ML VIAL IVP PRN (15:57)
[2019-06-14] MEDS ORDERED: KETOROLAC 30 MG/ML 1 ML VIAL IVP PRN (15:57)
[2019-06-14] MEDS ORDERED: ACETAMINOPHEN TAB 325 MG TAB PO PRN (15:57)
[2019-06-14] MEDS: HYDROcodone/APAP 10-325MG 1 EACH TAB PO SCH ×2 (18:11→21:50)
[2019-06-14] MEDS: SYMBICORT 160-4.5 MCG INHALER INHALATION SCH (19:23)
[2019-06-14] MEDS: IPRATROPIUM-ALBUTEROL 3 ML NEB INHALATION SCH ×2 (19:24→19:35)
[2019-06-14] MEDS ORDERED: NITROGLYCERIN SL TABS 0.4 MG TAB SUBLINGUAL PRN (21:00)
[2019-06-14] MEDS ORDERED: PROCHLORPERAZINE 5 MG TAB PO PRN (21:00)
[2019-06-14] MEDS: diphenhydrAMINE 50 MG CAP PO SCH (21:53)
[2019-06-14] MEDS: DIPYRIDAMOLE-ASPIRIN 200-25 MG 1 EACH CPMP.12HR PO SCH (21:53)
[2019-06-14] MEDS: ATORVASTATIN 10 MG TAB PO SCH (21:53)
[2019-06-14] MEDS: MELATONIN 5 MG TABLET PO SCH (21:53)
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
[2019-06-14] MEDS: PREGABALIN 75 MG CAP PO SCH ×2 (23:21→23:27)
[2019-06-14] MEDS: FUROSEMIDE 20 MG TAB PO SCH (23:27)
[2019-06-15] MEDS: SODIUM CHLORIDE 0.9% 1,000 ML IV SCH ×2 (06:48→20:29)
[2019-06-15] MEDS: LEVOTHYROXINE 112 MCG TAB PO SCH (06:48)
[2019-06-15 07:05] LABS: Basophils % (A) 1 %; Eosinophils # (A) 0.1 k/uL (0-0.7); Eosinophils % (A) 2 %; HCT 37.9 % (34.0-46.0); HGB 12.2 gm/dL (11.4-16.0); Lymphocytes % (A) 24 %; MCH 29.7 pg (25.0-35.0); MCHC 32.2 g/dL (31.0-37.0); MCV 92.1 fL (80.0-100.0); Mean Platelet Volume 8.3; Monocytes # (A) 0.3 k/uL (0-1.0); Monocytes % (A) 8 %; Neutrophils # (A) 2.7 k/uL (1.3-7.7); Neutrophils % (A) 63 %; Platelet Count 123 k/uL (150-450); RBC 4.11 m/uL (3.80-5.40); RDW 15.7 % (11.5-15.5); WBC 4.3 k/uL (3.8-10.6)
[2019-06-15 07:14] LABS: Albumin 3.1 g/dL (3.5-5.0); Calcium 8.3 mg/dL (8.4-10.2); Potassium 3.4 mmol/L (3.5-5.1); Total Bilirubin 0.8 mg/dL (0.2-1.3); Total Protein 5.4 g/dL (6.3-8.2)
[2019-06-15] MEDS ORDERED: PANTOPRAZOLE 40 MG TABLET PO SCH (07:30)
[2019-06-15] MEDS: IPRATROPIUM-ALBUTEROL 3 ML NEB INHALATION SCH ×4 (07:30→19:32)
[2019-06-15] MEDS: SYMBICORT 160-4.5 MCG INHALER INHALATION SCH ×2 (07:30→19:32)
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
[2019-06-15] MEDS ORDERED: NA PHOS,M-B/NA PHOS,DI-BA 133 ML ENEMA RECTAL ONE (08:30)
[2019-06-15] MEDS: DIPYRIDAMOLE-ASPIRIN 200-25 MG 1 EACH CPMP.12HR PO SCH ×2 (10:17→20:24)
[2019-06-15] MEDS: SENNOSIDES-DOCUSATE SODIUM 1 EACH TAB PO SCH ×2 (10:17→20:24)
[2019-06-15] MEDS: PREGABALIN 75 MG CAP PO SCH ×3 (10:17→20:23)
[2019-06-15] MEDS: HYDROcodone/APAP 10-325MG 1 EACH TAB PO SCH ×3 (10:18→20:24)
[2019-06-15] MEDS: ESCITALOPRAM 10 MG TAB PO SCH (10:18)
[2019-06-15] MEDS: MAGNESIUM OXIDE 400 MG TAB PO SCH (10:18)
[2019-06-15] MEDS: PANTOPRAZOLE 40 MG/10 ML VIAL IVP SCH (10:18)
[2019-06-15] MEDS: FUROSEMIDE 20 MG TAB PO SCH ×2 (10:18→16:26)
[2019-06-15] MEDS: ONDANSETRON 4 MG/2 ML VIAL IVP SCH ×4 (10:19→20:25)
[2019-06-15] MEDS: NON-FORMULARY DRUG (Roflumilast [Daliresp] 500 MCG) PO SCH (10:23)
--- NOTE | 2019-06-15 17:11 | P.PN ---
Progress Note - Text Progress Note Date: 06/15/19 Chief Complaint: Abdominal pain, nausea vomiting Interval history: This is a 73-year-old patient who follows with Dr. Ulrich. Chronic stable medical conditions include congestive heart failure, hyperlipidemia, hypertension, restless leg syndrome, hypothyroid, home oxygen, secondary pulmonary hypertension, COPD. Patient presented 3 days of nausea vomiting up her abdominal pain. [place] to be having opioid-induced constipation Today-seen by GI team. Who ordered laxatives and enema. Later the nurse called me that patient has large bowel movement. Patient did tolerate a full liquid diet for lunch this afternoon. Overall feeling much better. Active Medications Acetaminophen (Tylenol Tab) 650 mg PO Q6HR PRN PRN Reason: Mild Pain or Fever > 100.5 Hydrocodone Bitart/Acetaminophen ([place] 10) 1 each PO TID [facility] Last Admin: 06/15/19 16:26 Dose: 1 each Documented by: Albuterol/Ipratropium (Duoneb 0.5 Mg-3 Mg/3 Ml Soln) 3 ml INHALATION RT-QID [facility] Last Admin: 06/15/19 16:25 Dose: 3 ml Documented by: Atorvastatin Calcium (Lipitor) 10 mg PO [facility] Last Admin: 06/14/19 21:53 Dose: 10 mg Documented by: Bisacodyl (Dulcolax) 10 mg RECTAL DAILY [facility] Budesonide/Formoterol Fumarate (Symbicort 160-4.5 Mcg Inhaler) 2 puff INH ALATION RT-BID [facility] Last Admin: 06/15/19 07:30 Dose: 2 puff Documented by: Diphenhydramine HCl (Benadryl) 50 mg PO [facility] Last Admin: 06/14/19 21:53 Dose: 50 mg Documented by: Dipyridamole/Aspirin (Aggrenox) 1 each PO BID [facility] Last Admin: 06/15/19 10:17 Dose: 1 each Documented by: Escitalopram Oxalate (Lexapro) 10 mg PO DAILY [facility] Last Admin: 06/15/19 10:18 Dose: 10 mg Documented by: Fentanyl (Duragesic 12mcg/Hr Patch) 1 patch TRANSDERM Q72H [facility] Furosemide (Lasix) 20 mg PO BID@0900,1600 [facility] Last Admin: 06/15/19 16:26 Dose: 20 mg Documented by: Sodium Chloride (Saline 0.9%) 1,000 mls @ 75 mls/hr IV .[id number] [facility] Last Admin: 06/15/19 06:48 Dose: 75 mls/hr Documented by: Ketorolac Tromethamine (Toradol) 15 mg IVP Q6HR PRN PRN Reason: Moderate Pain Stop: 06/19/19 15:58 Levothyroxine Sodium (Synthroid) 112 mcg PO DAILY@0630 [facility] Last Admin: 06/15/19 06:48 Dose: 112 mcg Documented by: Magnesium Oxide (Mag-Ox) 400 mg PO DAILY [facility] Last Admin: 06/15/19 10:18 Dose: 400 mg Documented by: Melatonin (Melatonin) 5 mg PO HS [facility] Last Admin: 06/14/19 21:53 Dose: 5 mg Documented by: Naloxone HCl (Narcan) 0.2 mg IV Q2M PRN PRN Reason: Opioid Reversal Nitroglycerin (Nitrostat) 0.4 mg SUBLINGUAL Q5M PRN PRN Reason: Chest Pain Non-Formulary Medication (Roflumilast [Daliresp]) 500 mcg PO DAILY [facility] Last Admin: 06/15/19 10:23 Dose: Not Given Documented by: Ondansetron HCl (Zofran) 4 mg IVP Q6HR [facility] Last Admin: 06/15/19 16:18 Dose: Not Given Documented by: Pantoprazole Sodium (Protonix) 40 mg IVP DAILY [facility] Last Admin: 06/15/19 10:18 Dose: 40 mg Documented by: Pregabalin (Lyrica) 150 mg PO TID [facility] Last Admin: 06/15/19 16:26 Dose: 150 mg Documented by: Prochlorperazine Maleate (Compazine) 5 mg PO Q4H PRN PRN Reason: Nausea Ropinirole HCl (Requip) 3 mg PO TID [facility] Last Admin: 06/15/19 16:26 Dose: 3 mg Documented by: Senna/Docusate Sodium (Senokot-S) 2 each PO BID [facility] Last Admin: 06/15/19 10:17 Dose: 2 each Documented by: Physical examination: VITAL SIGNS: 98.2, 66, 18, 104/65, 97% on 3 L GENERAL: Propped up in bed, comfortable. EYES: Pupils equal. Conjunctiva normal. HEENT: External appearance of nose and ears normal, oral cavity grossly normal. NECK: JVD not raised; masses not palpable. HEART: First and second heart sounds are normal; no edema. LUNGS: Respiratory rate normal; decreased breath sounds. ABDOMEN: Soft, mild epigastric tenderness, no guarding or rigidity, liver spleen not palpable, no masses palpable. PSYCH: Alert and oriented x3; mood and affect anxiousl. Investigations: White count 4.3 potassium 3.4 creatinine 0.85 Previous investigations EKG tracing personally reviewed by me shows normal sinus rhythm Chest x-ray film personally reviewed by me shows some possible chronic changes. X-ray report noted Computed tomography scan of the chest-no aortic aneurysm or dissection. Some bronchial wall thickening. Moderate size hernia. Left-sided colonic diverticulosis. Other findings and the report Assessment: -Opioid-induced constipation -COPD in an ex-smoker -Chronic fibromyalgia -GERD -Hyperlipidemia -Essential hypertension -Hypothyroid -Chronic hypoxic respiratory failure due to liters of oxygen -Chronic right diaphragm paralysis -Moderate mitral stenosis nonrheumatic -Severe mitral regurgitation nonrheumatic -Primary, severe osteoarthritis -Chronic pain syndrome -Restless leg syndrome -Chronic urinary stress incontinence -Secondary pulmonary hypertension -Colonic diverticulosis, asymptomatic Plan: She received laxatives and enema I GI. Patient is reported to have a large bowel movement later today. Diet has been advanced. Care was discussed the patient earlier today.
[2019-06-15] MEDS: ATORVASTATIN 10 MG TAB PO SCH (20:24)
[2019-06-15] MEDS: MELATONIN 5 MG TABLET PO SCH (20:24)
[2019-06-15] MEDS: diphenhydrAMINE 50 MG CAP PO SCH (20:24)
[2019-06-16] MEDS: LEVOTHYROXINE 112 MCG TAB PO SCH (06:33)
[2019-06-16] MEDS: ONDANSETRON 4 MG/2 ML VIAL IVP SCH ×2 (06:33→12:27)
[2019-06-16] MEDS: IPRATROPIUM-ALBUTEROL 3 ML NEB INHALATION SCH ×2 (07:02→10:51)
[2019-06-16] MEDS: SYMBICORT 160-4.5 MCG INHALER INHALATION SCH (07:02)
[2019-06-16 08:03] VITALS: BP 101/66; RESP 18; TEMP 97.8
[2019-06-16] MEDS: SENNOSIDES-DOCUSATE SODIUM 1 EACH TAB PO SCH (08:54)
[2019-06-16] MEDS: PANTOPRAZOLE 40 MG/10 ML VIAL IVP SCH (08:54)
[2019-06-16] MEDS: HYDROcodone/APAP 10-325MG 1 EACH TAB PO SCH (08:54)
[2019-06-16] MEDS: PREGABALIN 75 MG CAP PO SCH (08:54)
[2019-06-16] MEDS: FUROSEMIDE 20 MG TAB PO SCH (08:55)
[2019-06-16] MEDS: MAGNESIUM OXIDE 400 MG TAB PO SCH (08:55)
[2019-06-16] MEDS: SODIUM CHLORIDE 0.9% 1,000 ML IV SCH (08:55)
[2019-06-16] MEDS: DIPYRIDAMOLE-ASPIRIN 200-25 MG 1 EACH CPMP.12HR PO SCH (08:55)
[2019-06-16] MEDS: ESCITALOPRAM 10 MG TAB PO SCH (08:56)
[2019-06-16] MEDS ORDERED: BISACODYL 10 MG SUPP RECTAL SCH (09:00)
[2019-06-16] MEDS: NON-FORMULARY DRUG (Roflumilast [Daliresp] 500 MCG) PO SCH (09:05)
[2019-06-16 11:04] VITALS: PULSE 76
--- NOTE | 2019-06-16 11:18 | P.PN ---
Subjective Progress Note Date: 06/16/19 Principal diagnosis: Constipation abdominal pain nausea Passing bowel movements. Tolerating diet. Mild nausea. Minimal abdominal discomfort. Afebrile. Objective - Vital Signs Vital signs: Vital Signs Temp 97.8 F 06/16/19 07:10 Pulse 76 06/16/19 11:03 Resp 18 06/16/19 07:10 BP 101/66 06/16/19 07:10 Pulse Ox 98 06/16/19 07:10 Intake & Output 06/15/19 06/16/19 06/16/19 18:59 06:59 18:59 Intake Total 660 480 Balance 660 480 Intake: Oral 560 480 Other 100 Other: Voiding Method Incontinent Incontinent # Voids 1 2 # Bowel Movements 1 - Exam General appearance: The patient is alert, oriented, in no acute distress. HET: Head is normocephalic and atraumatic. Pupils are equal and reactive. Or opharynx is clear without lesions. Neck: Supple without lymphadenopathy. Trachea midline. Heart: S1 S2. Regular rate and rhythm. Lungs: No crackles or wheezes are heard. Abdomen: Soft, nontender, nondistended with bowel sounds. No peritoneal signs. No palpable organomegaly or masses. Extremities: Normal skin color and turgor. No cyanosis, rash, ulceration, clubbing, or edema. Radial and pedal pulses are 2/4 bilaterally. Neurological: No focal deficits. Strength and sensation are grossly intact. - Labs CBC & Chem 7: 06/15/19 06:42 06/15/19 06:42 Assessment and Plan (1) Constipation due to opioid therapy Current Visit: Yes Status: Acute Code(s): K59.03 - DRUG INDUCED CONSTIPATION; T40.2X5A - ADVERSE EFFECT OF OTHER OPIOIDS, INITIAL ENCOUNTER SNOMED Code(s): 594719745899196 (2) Chronic nausea Current Visit: Yes Status: Acute Code(s): R11.0 - NAUSEA SNOMED Code(s): 550514176 (3) Intractable vomiting with nausea Current Visit: Yes Status: Acute Code(s): R11.2 - NAUSEA WITH VOMITING, UNSPECIFIED SNOMED Code(s): 790017268 (4) Hiatal hernia Current Visit: Yes Status: Acute Code(s): K44.9 - DIAPHRAGMATIC HERNIA WITHOUT OBSTRUCTION OR GANGRENE SNOMED Code(s): 67258573 Plan: 1. Overall patient constipation has improved. Recommend on discharge Senokot-S 2 tabs twice a day. Outpatient follow-up 3-4 weeks. Assessment and plan a care discussed with Dr. Gutierrez
--- NOTE | 2019-06-16 20:41 | P.DS ---
Providers Date of admission: 06/14/19 15:57 Expected date of discharge: 06/16/19 Attending physician: Tom Sequeira Primary care physician: Ajay Ulrich [facility] Course: Hospital course: This is a 73-year-old patient who follows with Dr. Ulrich. Chronic stable medical conditions include congestive heart failure, hyperlipidemia, hypertension, restless leg syndrome, hypothyroid, home oxygen, secondary pulmonary hypertension, COPD. Patient presented 3 days of nausea vomiting up her abdominal pain. [place] to be having opioid-induced constipation. Patient responded well to laxatives and enema. Diet was advanced was tolerating a diet well. Did Dr. Bernal today. Okay to be discharged. Patient overall feeling much better. Consultation: Dr. Ruth Gutierrez from gastroenterology Physical examination: VITAL SIGNS: 97.8, 69, 18, 101/ 66 98% on 3 L GENERAL: Laying in bed, comfortable. EYES: Pupils equal. Conjunctiva normal. HEENT: External appearance of nose and ears normal, oral cavity grossly normal. NECK: JVD not raised; masses not palpable. HEART: First and second heart sounds are normal; no edema. LUNGS: Respiratory rate normal; decreased breath sounds. ABDOMEN: Soft, mild epigastric tenderness, no guarding or rigidity, liver spleen not palpable, no masses palpable. PSYCH: Alert and oriented x3; mood and affect normal. Investigations: White count 4.3 hemoglobin 12.2 creatinine 0.85 Previous investigations EKG tracing personally reviewed by me shows normal sinus rhythm Chest x-ray film personally reviewed by me shows some possible chronic changes. X-ray report noted Computed tomography scan of the chest-no aortic aneurysm or dissection. Some bronchial wall thickening. Moderate size hernia. Left-sided colonic diverticulosis. Other findings and the report Discharge diagnosis: -Opioid-induced constipation -COPD in an ex-smoker -Chronic fibromyalgia -GERD -Hyperlipidemia -Essential hypertension -Hypothyroid -Chronic hypoxic respiratory failure due to liters of oxygen -Chronic right diaphragm paralysis -Moderate mitral stenosis nonrheumatic -Severe mitral regurgitation nonrheumatic -Primary, severe osteoarthritis -Chronic pain syndrome -Restless leg syndrome -Chronic urinary stress incontinence -Secondary pulmonary hypertension -Colonic diverticulosis, asymptomatic Disposition: Home Patient Condition at Discharge: Stable Plan - Discharge Summary New Discharge Prescriptions: New Sennosides-Docusate Sodium [Senokot-S] 2 tab PO BID #120 tablet Psyllium Husk (with Sugar) [Metamucil Powder] 6 gm PO DAILY #30 gm Continue Simvastatin [Zocor] 20 mg PO HS rOPINIRole HCL [Requip] 3 mg PO TID Pregabalin [Lyrica] 150 mg PO TID Aspirin/Dipyridamole [Aggrenox 25MG -200MG] 1 cap PO BID Levothyroxine Sodium [Synthroid] 112 mcg PO DAILY Magnesium Oxide 400 mg PO DAILY fentaNYL 12MCG/HR PATCH [Duragesic 12MCG/HR] 1 patch TRANSDERM Q72H HYDROcodone/APAP 10-325MG [[place] 10-325] 1 tab PO TID Nitroglycerin Sl Tabs [Nitrostat] 0.4 mg SUBLINGUAL Q5M PRN PRN Reason: Chest Pain Budesonide-Formot 160-4.5 Mcg [Symbicort 160-4.5 Mcg Inhaler] 2 puff INHALATION RT-BID Ipratropium-Albuterol Nebulize [Duoneb 0.5 mg-3 mg/3 ml Soln] 3 ml INHALATION RT-QID Prochlorperazine [Compazine] 5 mg PO Q4H PRN PRN Reason: Nausea Escitalopram [Lexapro] 10 mg PO DAILY Roflumilast [Daliresp] 500 mcg PO DAILY Melatonin 5 mg PO HS Furosemide [Lasix] 20 mg PO BID HYDROcodone/APAP 10-325MG [[place] 10-325] 1 tab PO HS PRN PRN Reason: Pain Changed Omeprazole [PriLOSEC] 40 mg PO BID #60 capsule.dr Discontinued diphenhydrAMINE [Benadryl] 50 mg PO HS Famotidine [Pepcid] 20 mg PO BID Discharge Medication List Simvastatin [Zocor] 20 mg PO HS 11/10/14 [History] Aspirin/Dipyridamole [Aggrenox 25MG -200MG] 1 cap PO BID 01/16/17 [History] Pregabalin [Lyrica] 150 mg PO TID 01/16/17 [History] rOPINIRole HCL [Requip] 3 mg PO TID 01/16/17 [History] Levothyroxine Sodium [Synthroid] 112 mcg PO DAILY 06/04/17 [History] Magnesium Oxide 400 mg PO DAILY 12/31/17 [History] fentaNYL 12MCG/HR PATCH [Duragesic 12MCG/HR] 1 patch TRANSDERM Q72H 12/31/17 [History] HYDROcodone/APAP 10-325MG [[place] 10-325] 1 tab PO TID 05/06/18 [History] Nitroglycerin Sl Tabs [Nitrostat] 0.4 mg SUBLINGUAL Q5M PRN 09/17/18 [History] Budesonide-Formot 160-4.5 Mcg [Symbicort 160-4.5 Mcg Inhaler] 2 puff INHALATION RT-BID 12/05/18 [History] Ipratropium-Albuterol Nebulize [Duoneb 0.5 mg-3 mg/3 ml Soln] 3 ml INHALATION RT-QID 12/26/18 [History] Escitalopram [Lexapro] 10 mg PO DAILY 02/25/19 [History] Furosemide [Lasix] 20 mg PO BID 02/25/19 [History] HYDROcodone/APAP 10-325MG [[place] 10-325] 1 tab PO HS PRN 02/25/19 [History] Melatonin 5 mg PO HS 02/25/19 [History] Prochlorperazine [Compazine] 5 mg PO Q4H PRN 02/25/19 [History] Roflumilast [Daliresp] 500 mcg PO DAILY 02/25/19 [History] Omeprazole [PriLOSEC] 40 mg PO BID #60 capsule. 06/16/19 [Rx] Psyllium Husk (with Sugar) [Metamucil Powder] 6 gm PO DAILY #30 gm 06/16/19 [Rx] Sennosides-Docusate Sodium [Senokot-S] 2 tab PO BID #120 tablet 06/16/19 [Rx] Follow up Appointment(s)/Referral(s): Ajay Ulrich DO [Primary Care Provider] - 1-2 days Tamiko Barrientos PAC [REFERRING] - 07/06/19 11:30 am Patient Instructions/Handouts: Acute Nausea and Vomiting (DC), Abdominal Pain (ED) Discharge Disposition: HOME SELF-CARE
[2019-06-17] MEDS ORDERED: PANTOPRAZOLE 40 MG TABLET PO SCH (07:30)
== END 2019-06-16 14:47 | disposition home or self-care (01) ==
LOC: EC 11:09 → 1SOBS 15:57
PROVIDERS: ADMIT Hospitalist; ATTEND Hospitalist
DX: K59.03 Drug induced constipation (principal); T40.2X5A Adverse effect of other opioids, initial encounter; J44.9 Chronic obstructive pulmonary disease, unspecified; J96.11 Chronic respiratory failure with hypoxia; M79.7 Fibromyalgia; E78.5 Hyperlipidemia, unspecified; I11.0 Hypertensive heart disease with heart failure; I50.9 Heart failure, unspecified; G25.81 Restless legs syndrome; R11.2 Nausea with vomiting, unspecified; E86.0 Dehydration; Z99.81 Dependence on supplemental oxygen; I27.29 Other secondary pulmonary hypertension; E89.0 Postprocedural hypothyroidism; N39.3 Stress incontinence (female) (male); K21.9 Gastro-esophageal reflux disease without esophagitis; G89.4 Chronic pain syndrome; J98.6 Disorders of diaphragm; I34.0 Nonrheumatic mitral (valve) insufficiency; K57.30 Diverticulosis of large intestine without perforation or abscess without bleeding; M19.91 Primary osteoarthritis, unspecified site; Z87.891 Personal history of nicotine dependence; I25.10 Atherosclerotic heart disease of native coronary artery without angina pectoris; I25.2 Old myocardial infarction; Z87.01 Personal history of pneumonia (recurrent); Z87.440 Personal history of urinary (tract) infections; I69.398 Other sequelae of cerebral infarction; I69.392 Facial weakness following cerebral infarction; R26.9 Unspecified abnormalities of gait and mobility; K44.9 Diaphragmatic hernia without obstruction or gangrene; Z90.49 Acquired absence of other specified parts of digestive tract; Z98.1 Arthrodesis status; Z79.899 Other long term (current) drug therapy; Z79.82 Long term (current) use of aspirin; Z79.890 Hormone replacement therapy; Z79.51 Long term (current) use of inhaled steroids; Z79.891 Long term (current) use of opiate analgesic; Z88.2 Allergy status to sulfonamides; Z88.5 Allergy status to narcotic agent; Z88.8 Allergy status to other drugs, medicaments and biological substances; Z88.1 Allergy status to other antibiotic agents; Z82.49 Family history of ischemic heart disease and other diseases of the circulatory system; Z82.3 Family history of stroke
CPT/HCPCS: 96375 ×2; 96376 ×3; 96361; 96374; 99285; 36415; 94640 ×6; 93005; 83880; 80053; 80048; 80076; 83690; 84484; 85025 ×2; 81003; 71046; 71275; 74174; G0378 ×3; S0183; J2405 ×3; J1885; C9113 ×2; Q9967

== ENCOUNTER 2019-07-19 15:41 | Observation (INO) | payer MEDICARE ==
[2019-07-19] MEDS ORDERED: ONDANSETRON 4 MG/2 ML VIAL IVP STA (16:04)
[2019-07-19] MEDS ORDERED: SODIUM CHLORIDE 0.9% 1,000 ML IV STA ×2 (16:04)
[2019-07-19] MEDS ORDERED: MORPHINE SULFATE 4 MG/ML SYRINGE IV STA (16:04)
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
[2019-07-19 16:51] LABS: Anisocytosis Slight; Basophils % (A) 0 %; Eosinophils # (A) 0.1 k/uL (0-0.7); Eosinophils % (A) 1 %; HCT 40.5 % (34.0-46.0); Lymphocytes # (A) 1.1 k/uL (1.0-4.8); Lymphocytes % (A) 12 %; MCH 30.2 pg (25.0-35.0); MCHC 32.1 g/dL (31.0-37.0); MCV 94.1 fL (80.0-100.0); Mean Platelet Volume 8.8; Monocytes # (A) 0.5 k/uL (0-1.0); Monocytes % (A) 5 %; Neutrophils # (A) 7.2 k/uL (1.3-7.7); Neutrophils % (A) 81 %; Platelet Count 162 k/uL (150-450); RDW 16.3 % (11.5-15.5); WBC 8.9 k/uL (3.8-10.6)
[2019-07-19 17:01] LABS: ALT 20 U/L (9-52); AST 23 U/L (14-36); African American GFR (CKD) >90 (>60 ml/min/1.73 sqM); Albumin 3.7 g/dL (3.5-5.0); Alkaline Phosphatase 109 U/L (38-126); Anion Gap 7 mmol/L; Blood Urea Nitrogen 15 mg/dL (7-17); Carbon Dioxide 28 mmol/L (22-30); Chloride 108 mmol/L (98-107); Creatine Kinase 58 U/L (30-135); Glucose 134 mg/dL (74-99); Magnesium 2.4 mg/dL (1.6-2.3); Phosphorus 3.4 mg/dL (2.5-4.5); Potassium 4.1 mmol/L (3.5-5.1); Sodium 143 mmol/L (137-145); Total Bilirubin 0.7 mg/dL (0.2-1.3); Total Protein 6.3 g/dL (6.3-8.2)
[2019-07-19 17:12] LABS: Prothrombin Time 10.4 sec (9.0-12.0)
[2019-07-19 17:13] LABS: Partial Thromboplastin Time 18.3 sec (22.0-30.0)
[2019-07-19] MEDS ORDERED: NITROGLYCERIN SL TABS 0.4 MG TAB SUBLINGUAL PRN ×2 (17:51→17:57)
[2019-07-19] MEDS ORDERED: LORazepam 2 MG/ML INJ IV PRN (17:51)
[2019-07-19] MEDS ORDERED: LORazepam 2 MG/ML INJ IV STA (17:51)
[2019-07-19] MEDS ORDERED: ASPIRIN 81 MG PO STA (17:51)
[2019-07-19] MEDS ORDERED: MORPHINE SULFATE 4 MG/ML SYRINGE IV PRN (17:51)
--- NOTE | 2019-07-19 17:56 | CT ---
EXAMINATION TYPE: CT angio chest DATE OF EXAM: 07/19/2019 5:43 PM COMPARISON: 12/05/2018 HISTORY: Pt c/o MARGRET, Chest pain, weakness, abdomen pain, vomiting. Pt hx CAD, COPD, angina, HTN. Sx h x appy, back sx, janay, hysterectomy, tubal, rt lung, thyroidectomy, alex fundoplication CT DLP: 449.1 mGycm Automated exposure control for dose reduction was used. CONTRAST: CTA scan of the thorax is performed with IV Contrast, patient injected with 100 mL of Isovue 370, pul monary embolism protocol. . There are 3-D post processed images. FINDINGS: There is patchy linear density in the left lung consistent with infiltrate and atelectasis. There is similar change at the right posterior lung base. There is hiatal hernia. There are clips at the gastr oesophageal junction. Heart is enlarged. There is no mediastinal adenopathy. There is no evidence of aortic aneurysm or dis section. I see no filling defects in the pulmonary arteries. There is 1.8 cm nodular density on the left adren al gland. There is 1 cm cortical cyst posterior right kidney. I see no bony destructive process. Ther e are right and left bronchial lymph nodes that measure up to 1 cm. IMPRESSION: NO EVIDENCE OF PULMONARY EMBOLISM. PATCHY INFILTRATE AND ATELECTASIS IN THE MID AND LOWER LUNG AVERY BILATERALLY APPEAR NOT SIGNIFICANTLY DIFFERENT THAN OLD EXAM AND LIKELY RELATED TO INFLAMMATORY DISE ASE. STABLE LEFT ADRENAL MASS.
[2019-07-19] MEDS ORDERED: ONDANSETRON 4 MG TAB PO PRN (17:57)
--- NOTE | 2019-07-19 18:06 | CT ---
EXAMINATION TYPE: CT abdomen pelvis w con DATE OF EXAM: 07/19/2019 COMPARISON: 03/01/2019 HISTORY: Pt c/o MARGRET, Chest pain, weakness, abdomen pain, vomiting. Pt hx CAD, COPD, angina, HTN. Sx h x appy, back sx, janay, hysterectomy, tubal, rt lung, thyroidectomy, alex fundoplication CT DLP: 1236.6 mGycm Automated exposure control for dose reduction was used. TECHNIQUE: Helical acquisition of images was performed from the lung bases through the pelvis. CONTRAST: Performed without Oral Contrast and with IV Contrast, patient injected with 100 mL of Isovue 370. FINDINGS: There is some patchy linear infiltrate and atelectasis at the lung bases. There are surgical clips at the gastroesophageal junction. There are clips from cholecystectomy. Liver shows no focal defect. Sp april appears normal. There is no sign of pancreatic mass. There is mild enlargement of the bile ducts . This is seen also within the liver.. Common bile duct measures 10 mm. There are bilateral relatively low density adrenal masses that measure 2.2 cm and 1.8 cm. Kidneys zeke w satisfactory contrast opacification. There is no hydronephrosis. There are bilateral multiple renal cortical cysts that measure up to 3.5 cm. There is no retroperitoneal adenopathy. Ureters are not di lated. There is no inguinal hernia. There is a right hip nailing. Bladder distends smoothly. There is no sign of a pelvic mass. There are numerous diverticula in the sigmoid colon. I see no sign of dive rticulitis. There is no evidence of free air. There is no ascites. Terminal ileum appears normal. Sacha endix is not seen. There is no sign of thickened appendix. There is no sign of bowel obstruction. The re is no mesenteric edema. There is spondylotic changes in the lumbar spine. There is no compression fracture. Bony pelvis appea rs intact. IMPRESSION: There is mild enlargement of the intrahepatic bile ducts that is a change compared to last exam and c ould relate to distal common bile duct obstruction. Ultrasound or MRCP exam might be helpful for furt her evaluation. THERE IS SIGMOID DIVERTICULOSIS WITHOUT DIVERTICULITIS. CHRONIC DENSITY AT THE LUNG BASES CONSISTENT WITH SCARRING AND ATELECTASIS. STABLE BILATERAL SMALL AD RENAL MASSES CONSISTENT WITH BENIGN DISEASE.
[2019-07-19] MEDS: SYMBICORT 160-4.5 MCG INHALER INHALATION SCH (19:49)
[2019-07-19] MEDS: SODIUM CHLORIDE 0.9% 1,000 ML IV SCH (20:48)
[2019-07-19] MEDS: DICLOFENAC SODIUM GEL 100 GM TUBE TOPICAL SCH (20:49)
[2019-07-19] MEDS ORDERED: diphenhydrAMINE 25 MG CAP PO SCH (21:00)
[2019-07-19] MEDS: ONDANSETRON 4 MG/2 ML VIAL IVP PRN (21:16)
[2019-07-20] MEDS: PANTOPRAZOLE 40 MG TABLET PO SCH ×3 (01:44→20:55)
[2019-07-20] MEDS: MELATONIN 5 MG TABLET PO SCH ×2 (01:44→20:54)
[2019-07-20] MEDS: METOPROLOL TARTRATE 25 MG TAB PO SCH ×3 (01:44→20:54)
[2019-07-20] MEDS: DIPYRIDAMOLE-ASPIRIN 200-25 MG 1 EACH CPMP.12HR PO SCH ×3 (01:44→20:55)
[2019-07-20] MEDS: ATORVASTATIN 10 MG TAB PO SCH ×2 (01:44→20:55)
[2019-07-20] MEDS: FAMOTIDINE 20 MG TAB PO SCH ×3 (01:44→20:55)
[2019-07-20] MEDS: PREGABALIN 75 MG CAP PO SCH ×4 (01:45→20:56)
[2019-07-20] MEDS: DICLOFENAC SODIUM GEL 100 GM TUBE TOPICAL SCH ×5 (01:45→20:56)
[2019-07-20] MEDS: ONDANSETRON 4 MG/2 ML VIAL IVP PRN ×2 (02:05→07:07)
[2019-07-20 05:14] LABS: Cholesterol 136 mg/dL (<200); HDL Cholesterol 66 mg/dL (40-60); LDL Cholesterol,Calculated 59 mg/dL (0-99); Triglycerides 57 mg/dL (<150)
[2019-07-20] MEDS: LEVOTHYROXINE 112 MCG TAB PO SCH (06:32)
[2019-07-20] MEDS: SODIUM CHLORIDE 0.9% 1,000 ML IV SCH ×3 (06:58→21:01)
[2019-07-20] MEDS: SYMBICORT 160-4.5 MCG INHALER INHALATION SCH ×2 (07:24→20:03)
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
[2019-07-20] MEDS ORDERED: ASPIRIN 325 MG TAB PO SCH (09:00)
[2019-07-20] MEDS ORDERED: NON-FORMULARY DRUG (Potassium Gluconate [Potassium Gluconate] 99 MG) PO SCH (09:00)
[2019-07-20] MEDS: FUROSEMIDE 20 MG TAB PO SCH ×2 (11:14→17:26)
[2019-07-20] MEDS: Roflumilast [Daliresp] 500 MCG) PO SCH (11:15)
[2019-07-20] MEDS ORDERED: HYDROcodone/APAP 10-325MG 1 EACH TAB PO PRN (13:21)
[2019-07-20] MEDS: IPRATROPIUM-ALBUTEROL 3 ML NEB INHALATION SCH ×2 (16:13→20:03)
[2019-07-20] MEDS: HYDROcodone/APAP 10-325MG 1 EACH TAB PO SCH ×2 (17:26→20:56)
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
[2019-07-20] MEDS: ENOXAPARIN 40 MG/0.4 ML SYRINGE SQ SCH (20:56)
[2019-07-21 04:41] VITALS: TEMP 98.3
[2019-07-21] MEDS: LEVOTHYROXINE 112 MCG TAB PO SCH (06:22)
[2019-07-21] MEDS: IPRATROPIUM-ALBUTEROL 3 ML NEB INHALATION SCH ×2 (07:21→12:04)
[2019-07-21] MEDS: SYMBICORT 160-4.5 MCG INHALER INHALATION SCH (07:21)
[2019-07-21] MEDS: DIPYRIDAMOLE-ASPIRIN 200-25 MG 1 EACH CPMP.12HR PO SCH (08:45)
[2019-07-21] MEDS: HYDROcodone/APAP 10-325MG 1 EACH TAB PO SCH (08:56)
[2019-07-21] MEDS: PREGABALIN 75 MG CAP PO SCH (08:56)
[2019-07-21] MEDS: FUROSEMIDE 20 MG TAB PO SCH (08:56)
[2019-07-21] MEDS: METOPROLOL TARTRATE 25 MG TAB PO SCH (08:56)
[2019-07-21] MEDS: PANTOPRAZOLE 40 MG TABLET PO SCH (08:56)
[2019-07-21] MEDS: DICLOFENAC SODIUM GEL 100 GM TUBE TOPICAL SCH ×2 (08:57→13:59)
[2019-07-21] MEDS: FAMOTIDINE 20 MG TAB PO SCH (08:57)
[2019-07-21] MEDS: ENOXAPARIN 40 MG/0.4 ML SYRINGE SQ SCH (08:58)
[2019-07-21] MEDS: SODIUM CHLORIDE 0.9% 1,000 ML IV SCH (10:21)
[2019-07-21 12:03] VITALS: PULSE 95
[2019-07-21 12:52] VITALS: BP 92/60; RESP 19
[2019-07-21] MEDS: Roflumilast [Daliresp] 500 MCG) PO SCH (13:59)
--- NOTE | 2019-07-21 20:51 | P.DS ---
Providers Date of admission: 07/19/19 17:51 Expected date of discharge: 07/21/19 Attending physician: Tom Sequeira Consults: 07/19/19 17:51 Consult Physician Urgent Consulting Provider: Christy Saez Consult Reason/Comments: cp Do you want consulting provider notified?: Yes Primary care physician: Ajay Ulrich [facility] Course: Hospital course: This is a 73-year-old patient who follows with Dr. Urlich. Chronic stable medical conditions include congestive heart failure, hyperlipidemia, hypertension, restless leg syndrome, hypothyroid, home oxygen, secondary pulmonary hypertension, COPD. Patient presented 2 days of nausea vomiting. Minimal abdominal pain. No radiation. Sometimes goes of the back. Normally is a bowel movement every day day. Nurse informed me that she was already bringing up suspect as opposed to any vomitus. Actually patient had a lunch. She was also spitting up saliva in the ER not really vomiting. Patient had a EGD previously had that showed gastritis. Also's had gastric empty study that was unremarkable. Denies any fever and chills. Also complained of some chest pressure. No radiation. No vaccine awaiting relieving symptoms. No shortness of breath. When I came into the room patient was resting comfortably. I looked at her plastic bucket by bedside. Clear sputum was there Patient chest pain was felt to be noncardiac. Also had some nausea felt to be from acute gastritis. Patient's been nothing by mouth with bowel rest symptoms greatly improved. Patient able to tolerate her diet before discharge. Cleared by cardiology. Doing well before discharge. . Consultation: Dr. Maddox from cardiology Physical examination: VITAL SIGNS: 98.3, 74, 18, 98% 60, 98% on 3 L GENERAL: Laying in bed bed, comfortable EYES: Pupils equal. Conjunctiva normal. HEENT: External appearance of nose and ears normal, oral cavity grossly normal. NECK: JVD not raised; masses not palpable. HEART: First and second heart sounds are normal; no edema. LUNGS: Respiratory rate normal; decreased breath sounds. ABDOMEN: Soft, no tenderness, no guarding or rigidity, liver spleen not palpable, no masses palpable. PSYCH: Alert and oriented x3; mood and affect anxiousl. INVESTIGATIONS, reviewed in the clinical context: White count 8.19 globin 13 potassium 4.1 creatinine 0.76 EKG tracing personally reviewed by me-normal sinus rhythm CT abdomen-sigmoid diverticulosis without diverticulitis some scarring in the lung bases Assessment: -Nausea secondary to acute and chronic gastritis. -Atypical chest pain appears to be noncardiac. -COPD in an ex-smoker -Chronic fibromyalgia -GERD -Hyperlipidemia -Essential hypertension -Hypothyroid -Chronic hypoxic respiratory failure due to liters of oxygen -Chronic right diaphragm paralysis -Moderate mitral stenosis nonrheumatic -Severe mitral regurgitation nonrheumatic -Primary, severe osteoarthritis -Chronic pain syndrome -Restless leg syndrome -Chronic urinary stress incontinence -Secondary pulmonary hypertension -Colonic diverticulosis, asymptomatic Disposition: Home. Patient Condition at Discharge: Stable Plan - Discharge Summary Discharge Rx Participant: No New Discharge Prescriptions: No Action Simvastatin [Zocor] 20 mg PO HS rOPINIRole HCL [Requip] 3 mg PO TID Pregabalin [Lyrica] 150 mg PO TID Aspirin/Dipyridamole [Aggrenox 25MG -200MG] 1 cap PO BID Levothyroxine Sodium [Synthroid] 112 mcg PO DAILY Magnesium Oxide 400 mg PO DAILY fentaNYL 12MCG/HR PATCH [Duragesic 12MCG/HR] 1 patch TRANSDERM Q72H HYDROcodone/APAP 10-325MG [[place] 10-325] 1 tab PO TID Nitroglycerin Sl Tabs [Nitrostat] 0.4 mg SUBLINGUAL Q5M PRN PRN Reason: Chest Pain Budesonide-Formot 160-4.5 Mcg [Symbicort 160-4.5 Mcg Inhaler] 2 puff INHALATION RT-BID Ipratropium-Albuterol Nebulize [Duoneb 0.5 mg-3 mg/3 ml Soln] 3 ml INHALATION RT-QID Roflumilast [Daliresp] 500 mcg PO DAILY Melatonin 5 mg PO HS Furosemide [Lasix] 20 mg PO BID HYDROcodone/APAP 10-325MG [[place] 10-325] 1 tab PO HS PRN PRN Reason: Pain Omeprazole [PriLOSEC] 40 mg PO BID #60 capsule.dr Famotidine [Pepcid] 20 mg PO BID Diclofenac Sodium Gel [Voltaren Gel] 2 gm TOPICAL QID Calcium/Vit D3 1200mg/1000iu 1 tab PO DAILY diphenhydrAMINE HCL [Benadryl] 50 mg PO HS Potassium Gluconate 99 mg PO DAILY Ondansetron [Zofran] 4 mg PO Q8HR PRN PRN Reason: Nausea And Vomiting Discharge Medication List Simvastatin [Zocor] 20 mg PO HS 11/10/14 [History] Aspirin/Dipyridamole [Aggrenox 25MG -200MG] 1 cap PO BID 01/16/17 [History] Pregabalin [Lyrica] 150 mg PO TID 01/16/17 [History] rOPINIRole HCL [Requip] 3 mg PO TID 01/16/17 [History] Levothyroxine Sodium [Synthroid] 112 mcg PO DAILY 06/04/17 [History] Magnesium Oxide 400 mg PO DAILY 12/31/17 [History] fentaNYL 12MCG/HR PATCH [Durages[place] 12MCG/HR] 1 patch TRANSDERM Q72H 12/31/17 [History] HYDROcodone/APAP 10-325MG [[place] 10-325] 1 tab PO TID 05/06/18 [History] Nitroglycerin Sl Tabs [Nitrostat] 0.4 mg SUBLINGUAL Q5M PRN 09/17/18 [History] Budesonide-Formot 160-4.5 Mcg [Symbicort 160-4.5 Mcg Inhaler] 2 puff INHALATION RT-BID 12/05/18 [History] Ipratropium-Albuterol Nebulize [Duoneb 0.5 mg-3 mg/3 ml Soln] 3 ml INHALATION RT-QID 12/26/18 [History] Furosemide [Lasix] 20 mg PO BID 02/25/19 [History] HYDROcodone/APAP 10-325MG [[place] 10-325] 1 tab PO HS PRN 02/25/19 [History] Melatonin 5 mg PO HS 02/25/19 [History] Roflumilast [Daliresp] 500 mcg PO DAILY 02/25/19 [History] Omeprazole [PriLOSEC] 40 mg PO BID #60 capsule. 06/16/19 [Rx] Calcium/Vit D3 1200mg/1000iu 1 tab PO DAILY 07/19/19 [History] Diclofenac Sodium Gel [Voltaren Gel] 2 gm TOPICAL QID 07/19/19 [History] Famotidine [Pepcid] 20 mg PO BID 07/19/19 [History] Ondansetron [Zofran] 4 mg PO Q8HR PRN 07/19/19 [History] Potassium Gluconate 99 mg PO DAILY 07/19/19 [History] diphenhydrAMINE HCL [Benadryl] 50 mg PO HS 07/19/19 [History] Follow up Appointment(s)/Referral(s): Ajay Ulrich DO [Primary Care Provider] - 1-2 days Sisi Vasquez MD [STAFF PHYSICIAN] - 1 Week (office is to call patient with date and time of follow up appointment.) Patient Instructions/Handouts: Chest Pain (DC) Discharge Disposition: HOME SELF-CARE
== END 2019-07-21 14:12 | disposition home or self-care (01) ==
LOC: EC 15:41 → 1SOBS 17:51
PROVIDERS: ADMIT Hospitalist; ATTEND Hospitalist
DX: R07.89 Other chest pain (principal); K29.00 Acute gastritis without bleeding; K29.50 Unspecified chronic gastritis without bleeding; K57.30 Diverticulosis of large intestine without perforation or abscess without bleeding; K21.9 Gastro-esophageal reflux disease without esophagitis; E78.5 Hyperlipidemia, unspecified; I11.0 Hypertensive heart disease with heart failure; I50.9 Heart failure, unspecified; J96.11 Chronic respiratory failure with hypoxia; I69.998 Other sequelae following unspecified cerebrovascular disease; J98.6 Disorders of diaphragm; I34.0 Nonrheumatic mitral (valve) insufficiency; G89.4 Chronic pain syndrome; M54.2 Cervicalgia; M54.9 Dorsalgia, unspecified; G25.81 Restless legs syndrome; N39.3 Stress incontinence (female) (male); I27.29 Other secondary pulmonary hypertension; J44.9 Chronic obstructive pulmonary disease, unspecified; E89.0 Postprocedural hypothyroidism; I69.992 Facial weakness following unspecified cerebrovascular disease; I25.10 Atherosclerotic heart disease of native coronary artery without angina pectoris; K44.9 Diaphragmatic hernia without obstruction or gangrene; R26.9 Unspecified abnormalities of gait and mobility; R32 Unspecified urinary incontinence; R20.0 Anesthesia of skin; Z99.81 Dependence on supplemental oxygen; M79.7 Fibromyalgia; M19.91 Primary osteoarthritis, unspecified site; E66.9 Obesity, unspecified; Z68.31 Body mass index [BMI] 31.0-31.9, adult; Z79.890 Hormone replacement therapy; Z79.51 Long term (current) use of inhaled steroids; Z79.02 Long term (current) use of antithrombotics/antiplatelets; Z79.891 Long term (current) use of opiate analgesic; Z79.899 Other long term (current) drug therapy; Z88.1 Allergy status to other antibiotic agents; Z88.8 Allergy status to other drugs, medicaments and biological substances; Z88.2 Allergy status to sulfonamides; Z88.5 Allergy status to narcotic agent; Z88.3 Allergy status to other anti-infective agents; Z90.49 Acquired absence of other specified parts of digestive tract; Z87.891 Personal history of nicotine dependence; Z87.440 Personal history of urinary (tract) infections; Z87.01 Personal history of pneumonia (recurrent); Z96.611 Presence of right artificial shoulder joint; Z96.651 Presence of right artificial knee joint; Z90.710 Acquired absence of both cervix and uterus; Z98.42 Cataract extraction status, left eye; Z98.41 Cataract extraction status, right eye; I25.2 Old myocardial infarction; Z87.81 Personal history of (healed) traumatic fracture; Z98.1 Arthrodesis status; Z82.3 Family history of stroke; Z82.49 Family history of ischemic heart disease and other diseases of the circulatory system
CPT/HCPCS: 96361 ×3; 96372 ×2; 96376 ×2; 96374; 96375; 99285; 36415; 94640 ×3; 94760; 93005; 83880; 80061; 80053; 82550; 83605; 83690; 83735; 84100; 84484 ×2; 85025; 85610; 85730; 71275; 74177; G0378 ×3; J2060 ×2; J2270; J2405 ×2; J1650 ×2; Q9967

== ENCOUNTER 2019-10-24 11:15 | Inpatient (IN) | payer MEDICARE ==
[2019-10-24] MEDS ORDERED: methylPREDNISolone SOD SUCCI 125 MG/2 ML VIAL IV STA (11:39)
[2019-10-24] MEDS ORDERED: IPRATROPIUM-ALBUTEROL 3 ML NEB INHALATION STA ×2 (11:39→14:12)
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
[2019-10-24] MEDS ORDERED: ONDANSETRON 4 MG/2 ML VIAL IVP STA (12:49)
[2019-10-24 13:10] LABS: Basophils % (A) 1 %; Eosinophils % (A) 1 %; HCT 39.1 % (34.0-46.0); HGB 12.5 gm/dL (11.4-16.0); Hypochromasia Moderate; Lymphocytes # (A) 0.8 k/uL (1.0-4.8); Lymphocytes % (A) 14 %; MCH 28.9 pg (25.0-35.0); MCV 90.3 fL (80.0-100.0); Mean Platelet Volume 9.9; Monocytes # (A) 0.2 k/uL (0-1.0); Monocytes % (A) 4 %; Neutrophils # (A) 4.7 k/uL (1.3-7.7); Neutrophils % (A) 81 %; Platelet Count 148 k/uL (150-450); RBC 4.32 m/uL (3.80-5.40); RDW 14.3 % (11.5-15.5); WBC 5.8 k/uL (3.8-10.6)
[2019-10-24 13:21] LABS: ALT 23 U/L (9-52); AST 19 U/L (14-36); African American GFR (CKD) >90 (>60 ml/min/1.73 sqM); Albumin 3.9 g/dL (3.5-5.0); Alkaline Phosphatase 123 U/L (38-126); Anion Gap 7 mmol/L; Blood Urea Nitrogen 11 mg/dL (7-17); Carbon Dioxide 31 mmol/L (22-30); Chloride 106 mmol/L (98-107); Creatine Kinase 42 U/L (30-135); Glucose 108 mg/dL (74-99); Magnesium 2.2 mg/dL (1.6-2.3); Non-African American GFR(CKD) 85 (>60 ml/min/1.73 sqM); Potassium 4.1 mmol/L (3.5-5.1); Sodium 144 mmol/L (137-145); Total Bilirubin 0.8 mg/dL (0.2-1.3); Total Protein 6.5 g/dL (6.3-8.2)
[2019-10-24 13:23] LABS: D-Dimer 0.45 mg/L FEU (<0.60); Partial Thromboplastin Time 24.6 sec (22.0-30.0); Prothrombin Time 10.8 sec (9.0-12.0)
[2019-10-24] MEDS ORDERED: FUROSEMIDE 10 MG/ML 4 ML VIAL IV STA (13:24)
--- NOTE | 2019-10-24 13:46 | XR ---
EXAMINATION TYPE: XR chest 2V DATE OF EXAM: 10/24/2019 HISTORY: difficulty breathing. REFERENCE: Previous study dated 06/14/2019. FINDINGS: There is a right shoulder arthroplasty in place. The heart is mildly enlarged. Developing opacity in the left midlung. The right lung is clear. There is blunting of the left CP angle which is chronic. This may represent a pleural reaction or pleural f luid. IMPRESSION: 1. MILD CARDIOMEGALY. 2. I CANNOT EXCLUDE DEVELOPING LEFT LUNG PNEUMONIA
[2019-10-24] MEDS ORDERED: HYDROcodone/APAP 10-325MG 1 EACH TAB PO PRN (14:16)
[2019-10-24] MEDS ORDERED: LORazepam 2 MG/ML INJ IV STA (14:48)
[2019-10-24] MEDS ORDERED: cefTRIAXone IN SWFI 1,000 MG/10 ML SYRINGE IVP STA (15:21)
[2019-10-24] MEDS: SODIUM CHLORIDE 0.9% 1,000 ML IV SCH (15:22)
[2019-10-24] MEDS ORDERED: HYDROmorphone 0.5 MG/0.5 ML SYRINGE IVP STA (15:27)
[2019-10-24] MEDS ORDERED: AZITHROMYCIN 500 MG in SODIUM CHLORIDE 0.9% 250 ML IVPB STA (15:28)
[2019-10-24] MEDS: HYDROcodone/APAP 10-325MG 1 EACH TAB PO SCH ×2 (15:35→23:08)
[2019-10-24] MEDS ORDERED: ACETAMINOPHEN TAB 500 MG TAB PO PRN (16:11)
--- NOTE | 2019-10-24 17:25 | HP ---
HISTORY AND PHYSICAL CHIEF COMPLAINT: Shortness of breath and cough and sputum and vomiting. HISTORY OF PRESENT ILLNESS: This 74-year-old woman with a past history of multiple medical problems including COPD, history of CHF, CVA, TIA, history of fibromyalgia, GERD, hypertension, hyperlipidemia, myocardial infarction, history of chronic dyspnea, history of appendectomy being followed by Dr. Ajay Ulrich in the outpatient setting was previously admitted with vomiting. Currently the patient had shortness of breath, cough and sputum. Patient had mucopurulent sputum and the patient also complaining of cough, vomiting also. There are some chills and sweating was noted also. There is some chest tightness also noted. Because of the difficulty breathing, patient came to [facility] and was admitted for further evaluation and treatment. Chest x-ray showed bilateral lesions, possibly pneumonia also. There is no history of any headache, loss conscious, hematochezia, melena at this time. PAST MEDICAL HISTORY: History of CAD, history of asthma, CHF, COPD, CVA, TIA, fibromyalgia, GERD, history of myocardial infarction, history of DJD, history of pneumonia. MEDICATIONS: Prior to admission include home medications are reviewed and include: 1. Benadryl 25 mg q.h.s. p.r.n. 2. Zofran 4 mg q.8 p.r.n. 3. [place] 10 mg q.h.s. 4. Daliresp 500 mcg p.o. daily. 5. Pepcid 20 mg p.o. daily. 6. Lexapro 10 mg p.o. daily. 7. Requip 3 mg p.o. t.i.d. 8. Zocor 20 mg q.h.s. 9. Omeprazole 40 mg p.o. daily. 10.Magnesium oxide 400 mg p.o. daily. 11.Synthroid 112 mcg p.o. daily. 12.[place] 10 mg p.o. t.i.d. 13.Duragesic patch 12 mcg q.72h. 14.Aggrenox 20/200 1 p.o. b.i.d. ALLERGIES: CLINDAMYCIN, NYSTATIN, SULFA, ACCOLATE, ALBUTEROL, OXYCODONE. FAMILY HISTORY: History of myocardial infarction in the family. SOCIAL HISTORY: Previous history of smoking. No history of current smoking or alcohol intake. REVIEW OF SYSTEMS: ENT: No diminished vision. No diminished hearing. CARDIOVASCULAR system: As mentioned earlier. RESPIRATION: As mentioned earlier. GASTROINTESTINAL: As mentioned earlier. no dysuria or hematuria. NERVOUS SYSTEM: No numbness or weakness. ALLERGY/IMMUNOLOGY: No asthma or hayfever. MUSCULOSKELETAL as mentioned earlier. HEMATOLOGY/ONCOLOGY: No history of anemia. ENDOCRINE: No history of diabetes or hypothyroidism. CONSTITUTIONAL: As mentioned earlier. DERMATOLOGY: Negative. RHEUMATOLOGY: Negative. PSYCHIATRIC: As mentioned earlier. PHYSICAL EXAM: Patient is alert, oriented x3. Pulse is 75. Blood pressure 103/75, respirations 18, temperature is normal. Pulse ox 97% on 2 L. HEENT: Conjunctivae normal. Oral mucosa moist. NECK is no jugular venous distention. No carotid bruit. No lymph node enlargement. Accessory muscles of respiration acting. CARDIOVASCULAR SYSTEM: S1, S2 muffled. No S3, no S4. RESPIRATIONS: Breath sounds diminished in the bases. Bilateral scattered rhonchi and crackles. Expiratory wheezing also present. ABDOMEN: Soft, nontender. No mass palpable. LEGS: No edema. No swelling. NERVOUS SYSTEM: Higher functions as mentioned earlier. Moves all four limbs. No focal motor or sensory deficits. LYMPHATICS: No lymph nodes palpable in the neck, axillae or groin. SKIN: No ulcer, no rash and no bleeding. JOINTS: No active deforming arthropathy. LAB STUDIES: Platelets 148. CBC within normal limits. CO2 is 31. ASSESSMENT: 1. Chronic obstructive pulmonary disease acute exacerbation with bilateral pneumonia possibly gram-negative with possible early sepsis present on admission. 2. Vomiting, possibly acute on chronic gastritis. 3. History of coronary artery disease. 4. History of chest discomfort, possibly musculoskeletal, possible unstable angina. 5. History of congestive heart failure, ejection fraction unknown. 6. History of cerebrovascular accident, transient ischemic attack. 7. History of fibromyalgia. 8. History of gastroesophageal reflux disease. 9. Hypertension. 10.Hyperlipidemia. 11.History of myocardial infarction. 12.History of degenerative joint disease. 13.History of chronic hypoxic respiratory failure on home O2 3-4 L nasal cannula. 14.History of right diaphragmatic paralysis. 15.History of pulmonary hypertension. 16.History of Klebsiella pneumonia. 17.History of valvular heart disease with moderate mitral stenosis and severe mitral regurgitation. 18.History of CVI. 19.History of multiple transient ischemic attacks. 20.History of degenerative joint disease. 21.History of cerebral aneurysm. 22.History of hypothyroidism. 23.History of back surgery, degenerative joint disease. 24.History of cardiac catheterization. 25.History of depression. 26.Remote history of nicotine dependence. 27.Obesity with body mass of 31.2. RECOMMENDATIONS AND DISCUSSION: In this 74-year-old woman who presented with multiple complex medical issues, we will monitor the patient closely, continue the current medications, management and symptomatic treatment. Otherwise, at this time, I recommend optimize bronchodilator treatment. Empiric antibiotics. Obtain pulmonary consultations. Otherwise, resume the home medications. IV steroids. Monitor blood sugars closely. Prognosis extremely guarded because of multiple complex medical issues. See orders for details. A copy of this dictation being forwarded to Dr. Ulrich who is the primary physician. [id number] / IJN: [id number] /
[2019-10-24] MEDS ORDERED: PANTOPRAZOLE 40 MG TABLET PO SCH (17:30)
[2019-10-24] MEDS ORDERED: IPRATROPIUM-ALBUTEROL 3 ML NEB INHALATION PRN (19:09)
[2019-10-24] MEDS: SYMBICORT 160-4.5 MCG INHALER INHALATION SCH (19:29)
[2019-10-24] MEDS: IPRATROPIUM-ALBUTEROL 3 ML NEB INHALATION SCH (19:29)
[2019-10-24] MEDS ORDERED: IPRATROPIUM-ALBUTEROL 3 ML NEB INHALATION SCH (20:00)
[2019-10-24] MEDS: FUROSEMIDE 20 MG TAB PO SCH (20:04)
[2019-10-24] MEDS: PREGABALIN 75 MG CAP PO SCH ×2 (20:05→23:13)
[2019-10-24] MEDS: INSULIN ASPART (NovoLOG) 100 UNIT/ML VIAL SQ SCH ×2 (20:37→23:44)
[2019-10-24] MEDS: ONDANSETRON 4 MG TAB PO PRN (20:44)
[2019-10-24 21:00] LABS: Glucose,Whole Blood 218 mg/dL (75-99)
[2019-10-24] MEDS ORDERED: PANTOPRAZOLE 40 MG/10 ML VIAL IVP SCH (21:00)
[2019-10-24] MEDS: MELATONIN 5 MG TABLET PO SCH (23:13)
[2019-10-24] MEDS: ATORVASTATIN 10 MG TAB PO SCH (23:13)
[2019-10-24] MEDS: DIPYRIDAMOLE-ASPIRIN 200-25 MG 1 EACH CPMP.12HR PO SCH (23:13)
[2019-10-24] MEDS: methylPREDNISolone SOD SUCCI 125 MG/2 ML VIAL IV SCH ×2 (23:14→23:25)
[2019-10-24] MEDS: diphenhydrAMINE 25 MG CAP PO SCH (23:14)
[2019-10-24] MEDS: HEPARIN SODIUM,PORCINE 5,000 UNIT/ML 1 ML VIAL SQ SCH (23:15)
[2019-10-24] MEDS: DICLOFENAC SODIUM GEL 100 GM TUBE TOPICAL SCH ×2 (23:21→23:22)
[2019-10-24] MEDS: FAMOTIDINE 20 MG TAB PO SCH (23:22)
[2019-10-25] MEDS: ALPRAZolam 0.25 MG TAB PO PRN ×2 (00:33→08:11)
[2019-10-25] MEDS: SODIUM CHLORIDE 0.9% 1,000 ML IV SCH (01:11)
[2019-10-25] MEDS: methylPREDNISolone SOD SUCCI 125 MG/2 ML VIAL IV SCH ×3 (06:18→17:08)
[2019-10-25] MEDS: LEVOTHYROXINE 112 MCG TAB PO SCH (06:19)
[2019-10-25 06:55] LABS: Glucose,Whole Blood 168 mg/dL (75-99)
[2019-10-25] MEDS: SYMBICORT 160-4.5 MCG INHALER INHALATION SCH ×2 (06:59→19:26)
[2019-10-25] MEDS: IPRATROPIUM-ALBUTEROL 3 ML NEB INHALATION SCH ×4 (06:59→19:26)
--- NOTE | 2019-10-25 07:30 | P.PN ---
Subjective This is a pleasant 74 years old female with past medical history of COPD and she follows with Dr. Ricketts as an outpatient, coronary artery disease, heart failure, CVA/TIA, fibromyalgia, GERD, hyperlipidemia, hypertension, osteoarthritis, hypothyroidism status post fusion surgery, restless leg syndrome, cerebral aneurysms 2, hiatahernia, gait difficulty. Presents because of breathing difficulty and chest tightness associated with cough and yellowish phlegm for a few days duration but no chest pain, associated also with nausea and vomiting each time she eats since yesterday patient was found to have COPD acute exacerbation and possible left pneumonia, she was already started on steroids and antibiotics. Also she was started on normal saline and 100 mL per hour., Which is stopped now. Vitas looks stable and patient is afebrile. Blood pressure 107/65, saturating 98% on 3 L of oxygen. Influenza is negative, flaps review. Review of systems CONSTITUTIONAL: No fever, no malaise, no fatigue. HEENT: No recent visual problems or hearing problems. Denied any sore throat. CARDIOVASCULAR: no palpitations, no syncope. PULMONARY: no hemoptysis. GASTROINTESTINAL: No diarrhea, no nausea, no vomiting, no abdominal pain. Normoactive bowel sounds. NEUROLOGICAL: No headaches, no weakness, no numbness. HEMATOLOGICAL: Denies any bleeding or petechiae. GENITOURINARY: Denies any burning micturition, frequency, or urgency. MUSCULOSKELETAL/RHEUMATOLOGICAL: Denies any joint pain, swelling, or any muscle pain. ENDOCRINE: Denies any polyuria or polydipsia. Active Medications Generic Name Dose Route Start Last Admin Trade Name Freq PRN Reason Stop Dose Admin Acetaminophen 500 mg 10/24/19 16:11 Tylenol Tab PO Q6HR PRN Fever and/ or Mild Pain Hydrocodone Bitart/Acetaminophen 1 each 10/24/19 16:00 10/24/19 23:08 [place] 10 PO 1 each TID MARICARMEN Administration Hydrocodone Bitart/Acetaminophen 1 each 10/24/19 14:16 [place] 10 PO HS PRN Pain Albuterol/Ipratropium 3 ml 10/24/19 20:00 10/25/19 06:59 Duoneb 0.5 Mg-3 Mg/3 Ml Soln INHALATION 3 ml RT-QID MARICARMEN Administration Albuterol/Ipratropium 3 ml 10/24/19 19:09 Duoneb 0.5 Mg-3 Mg/3 Ml Soln INHALATION RT-Q2H PRN Shortness Of Breath Or Wheezing Alprazolam 0.25 mg 10/24/19 16:11 10/25/19 00:33 Xanax PO 0.25 mg TID PRN Administration Anxiety Atorvastatin Calcium 10 mg 10/24/19 21:00 10/24/19 23:13 Lipitor PO 10 mg HS MARICARMEN Administration Azithromycin 500 mg 10/25/19 09:00 Zithromax PO DAILY [facility] Budesonide/Formoterol Fumarate 2 puff 10/24/19 20:00 10/25/19 06:59 Symbicort 160-4.5 Mcg Inhaler INHALATION 2 puff RT-BID [facility]ICARM[facility] Administration Diclofenac Sodium 2 gm 10/24/19 18:00 10/24/19 23:22 Voltaren Gel TOPICAL Not Given QID [facility] Diphenhydramine HCl 50 mg 10/24/19 21:00 10/24/19 23:14 Benadryl PO 50 mg HS [facility] Administration Dipyridamole/Aspirin 1 each 10/24/19 21:00 10/24/19 23:13 Aggrenox PO 1 each BID [facility] Administration Escitalopram Oxalate 10 mg 10/25/19 09:00 Lexapro PO DAILY [facility] Famotidine 20 mg 10/24/19 21:00 10/24/19 23:22 Pepcid PO Not Given BID [facility] Fentanyl 1 patch 10/25/19 09:00 Duragesic 12mcg/Hr Patch TRANSDERM Q72H [facility] Furosemide 20 mg 10/24/19 16:00 10/24/19 20:04 Lasix PO Not Given BID@0900,1600 [facility] Heparin Sodium (Porcine) 5,000 unit 10/24/19 21:00 10/24/19 23:15 Heparin SQ 5,000 unit Q12HR [facility] Administration Ceftriaxone Sodium 1 gm/ 50 mls @ 100 mls/hr 10/25/19 09:00 Sodium Chloride IVPB Q24HR [facility] Insulin Aspart 0 unit 10/24/19 17:30 10/24/19 23:44 Novolog SQ 3 unit ACHS [facility]ICARM[facility] Administration Protocol Levothyroxine Sodium 112 mcg 10/25/19 06:30 10/25/19 06:19 Synthroid PO 112 mcg 0630 [facility] Administration Magnesium Oxide 400 mg 12/09/19 09:00 Mag-Ox PO DAILY [facility] Melatonin 5 mg 10/24/19 21:00 10/24/19 23:13 Melatonin PO 5 mg HS [facility] Administration Methylprednisolone Sodium Succinate 60 mg 10/24/19 18:00 10/25/19 06:18 Solu-Medrol IV 60 mg Q6HR [facility]ICARM[facility] Administration Nitroglycerin 0.4 mg 10/24/19 14:16 Nitrostat SUBLINGUAL Q5M PRN Chest Pain Roflumilast [ 500 mcg 10/25/19 09:00 Daliresp] 500 Mcg PO DAILY [facility] Ondansetron HCl 4 mg 10/24/19 14:16 10/24/19 20:44 Zofran PO 4 mg Q8HR PRN Administration Nausea And Vomiting Pantoprazole Sodium 40 mg 10/24/19 21:00 10/24/19 23:19 Protonix IVP 40 mg BID MAR[facility] Administration Potassium Chloride 10 meq 10/25/19 09:00 K-Dur 10 PO DAILY [facility] Pregabalin 150 mg 10/24/19 16:00 10/24/19 23:13 Lyrica PO 150 mg TID [facility] Administration Ropinirole HCl 3 mg 10/24/19 16:00 10/24/19 23:13 Requip PO 3 mg TID [facility] Administration Objective - Vital Signs Vital signs: Vital Signs Temp 97.3 F L 10/25/19 05:06 Pulse 84 10/25/19 07:13 Resp 20 10/25/19 05:06 BP 107/65 10/25/19 05:06 Pulse Ox 98 10/25/19 05:06 Intake & Output 10/24/19 10/25/19 10/25/19 18:59 06:59 18:59 Intake Total 400 Output Total 200 Balance 200 Weight 82.554 kg 90 kg Intake: Oral 400 Output: Urine 200 Other: Voiding Method Incontinent # Voids 0 - Exam GENERAL: The patient is alert and oriented x3, not in any acute distress. Well developed, well nourished. HEENT: Pupils are round and equally reacting to light. EOMI. No scleral icterus. No conjunctival pallor. Normocephalic, atraumatic. No pharyngeal erythema. No thyromegaly. CARDIOVASCULAR: S1 and S2 present. No murmurs, rubs, or gallops. -PULMONARY: Chest is clear to auscultation, no wheezing or crackles. Decreased breath sounds especially in the left lung basal area, with scattered wheezing ABDOMEN: Soft, nontender, nondistended, normoactive bowel sounds. No palpable organomegaly. MUSCULOSKELETAL: No joint swelling or deformity. EXTREMITIES: No cyanosis, clubbing, or pedal edema. NEUROLOGICAL: Gross neurological examination did not reveal any focal deficits. SKIN: No rashes. no petechiae. - Labs CBC & Chem 7: 10/24/19 12:55 10/24/19 12:55 Labs: Abnormal Lab Results - Last 24 Hours (Table) 10/24/19 10/24/19 10/24/19 Range/Units 12:55 12:55 20:58 Plt Count 148 L (150-450) k/uL Lymphocytes # 0.8 L (1.0-4.8) k/uL Carbon Dioxide 31 H (22-30) mmol/L Glucose 108 H (74-99) mg/dL POC Glucose (mg/dL) 218 H (75-99) mg/dL 10/25/19 Range/Units 06:52 Plt Count (150-450) k/uL Lymphocytes # (1.0-4.8) k/uL Carbon Dioxide (22-30) mmol/L Glucose (74-99) mg/dL POC Glucose (mg/dL) 168 H (75-99) mg/dL Assessment and Plan Assessment: Possible left side, community acquired pneumonia Acute COPD exacerbation Hypertension Fibromyalgia Hyperlipidemia History of CVA/TIA History of cerebral aneurysm 2 hiatal hernia History of gait difficulty Hypothyroidism Primary osteoarthritis Restless leg syndrome Chronic neck pain status post fusion surgery about 6 years ago Plan: This is a pleasant 74 years old female who presents because of COPD exacerbation and pneumonia. Continue with Zithromax and ceftriaxone, continue with Solu- Medrol, patient is on a Protonix IV 40 mg twice daily. Fluid was stopped. Also continue on oral Lasix. Pain management.Labs and medication were reviewed.. Continue same treatment. Continue with symptomatic treatment. Resume home medication. Monitor lytes and vitals. DVT and GI prophylaxis. Further gisel mmendations of the clinical course of the patient DVT prophylaxis: Subcutaneous heparin GI Prophylaxis: Protonix PT/OT: Pending Prognosis is guarded
[2019-10-25] MEDS: PREGABALIN 75 MG CAP PO SCH ×3 (08:11→20:27)
[2019-10-25] MEDS: HYDROcodone/APAP 10-325MG 1 EACH TAB PO SCH ×3 (08:11→20:28)
[2019-10-25] MEDS: AZITHROMYCIN 500 MG TAB PO SCH (08:12)
[2019-10-25] MEDS: MAGNESIUM OXIDE 400 MG TAB PO SCH (08:12)
[2019-10-25] MEDS: INSULIN ASPART (NovoLOG) 100 UNIT/ML VIAL SQ SCH ×4 (08:12→20:27)
[2019-10-25] MEDS: ESCITALOPRAM 10 MG TAB PO SCH (08:12)
[2019-10-25] MEDS: PANTOPRAZOLE 40 MG TABLET PO SCH ×2 (08:12→15:52)
[2019-10-25] MEDS: POTASSIUM CHLORIDE ER 10 MEQ TAB.ER.PRT PO SCH (08:12)
[2019-10-25] MEDS: FAMOTIDINE 20 MG TAB PO SCH (08:12)
[2019-10-25] MEDS: FUROSEMIDE 20 MG TAB PO SCH ×2 (08:12→15:53)
[2019-10-25] MEDS: HEPARIN SODIUM,PORCINE 5,000 UNIT/ML 1 ML VIAL SQ SCH ×2 (08:13→20:21)
[2019-10-25] MEDS: DICLOFENAC SODIUM GEL 100 GM TUBE TOPICAL SCH ×4 (08:13→20:22)
[2019-10-25 09:09] LABS: Basophils % (A) 0 %; Eosinophils % (A) 0 %; HCT 36.7 % (34.0-46.0); HGB 11.5 gm/dL (11.4-16.0); Hypochromasia Slight; Lymphocytes # (A) 0.3 k/uL (1.0-4.8); Lymphocytes % (A) 6 %; MCH 28.4 pg (25.0-35.0); MCHC 31.2 g/dL (31.0-37.0); MCV 90.9 fL (80.0-100.0); Mean Platelet Volume 8.8; Monocytes # (A) 0.1 k/uL (0-1.0); Monocytes % (A) 3 %; Neutrophils # (A) 4.6 k/uL (1.3-7.7); Neutrophils % (A) 92 %; Platelet Count 133 k/uL (150-450); RBC 4.04 m/uL (3.80-5.40); RDW 14.6 % (11.5-15.5)
[2019-10-25 09:11] LABS: African American GFR (CKD) >90 (>60 ml/min/1.73 sqM); Anion Gap 9 mmol/L; Blood Urea Nitrogen 14 mg/dL (7-17); Calcium 8.8 mg/dL (8.4-10.2); Carbon Dioxide 29 mmol/L (22-30); Chloride 105 mmol/L (98-107); Glucose 193 mg/dL (74-99); Non-African American GFR(CKD) 81 (>60 ml/min/1.73 sqM); Potassium 4.1 mmol/L (3.5-5.1); Sodium 143 mmol/L (137-145)
[2019-10-25] MEDS: DIPYRIDAMOLE-ASPIRIN 200-25 MG 1 EACH CPMP.12HR PO SCH ×2 (10:00→20:22)
[2019-10-25] MEDS: ONDANSETRON 4 MG TAB PO PRN (10:00)
[2019-10-25] MEDS: NITROGLYCERIN SL TABS 0.4 MG TAB SUBLINGUAL PRN (10:21)
[2019-10-25 11:58] LABS: Glucose,Whole Blood 174 mg/dL (75-99)
[2019-10-25 16:42] LABS: Glucose,Whole Blood 200 mg/dL (75-99)
--- NOTE | 2019-10-25 17:22 | CONS ---
CONSULTATION PULMONARY/CRITICAL CARE CONSULTATION: DATE OF CONSULTATION: October 25, 2019 HISTORY OF PRESENT ILLNESS: A 74-year-old female well known to me. She has a history of COPD and CHF. The patient apparently comes to the emergency room complaining of shortness of breath. The patient also has been having cough for 2 or 3 days prior to admission. Things progressed and she decided to come to the emergency room to be evaluated. The cough was productive of yellow phlegm. In addition, she had chills and sweats, but no fever. She also admitted to some chest tightness and certainly some difficulty breathing with chest congestion. She was concerned about pneumonia, which is why she came into the hospital to be evaluated. She was admitted to the hospital through the emergency room with a diagnosis of COPD exacerbation. She is feeling a bit better. She was almost a bit tearful today when we went to see her in the room. She was wearing nasal O2. Currently, her medications include Zocor, Aggrenox, Lyrica, Requip, Synthroid, Mag-Ox, fentanyl patch, [place], nitroglycerin, Symbicort, DuoNeb, Lasix, [place], melatonin, Roflumilast, calcium with vitamin D3, Voltaren, famotidine, Zofran, potassium gluconate, and Benadryl. She is also on omeprazole. ALLERGIES: MANY AND INCLUDE CLINDAMYCIN, NYSTATIN, SULFA ANTIBIOTICS AND TRIMETHOPRIM. SHE ALSO APPARENTLY COULD NOT TOLERATE ACRYLATE, ALBUTEROL AND OXYCODONE. PAST MEDICAL HISTORY: Includes CAD, angina, CHF, COPD, CVA, fibromyalgia, GERD, hyperlipidemia, hypertension, myocardial infarction, DJD, pneumonia, and hypothyroidism. She also has a history of chronic hypoxemic respiratory failure requiring O2 at . She also has a history of right-sided diaphragm paralysis, pulmonary hypertension, Klebsiella pneumoniae pneumonia, and valvular heart disease with moderate mitral stenosis and severe mitral regurgitation. She also has chronic back and neck pain, restless legs syndrome, cerebral aneurysm, hiatal hernia, UTIs, and urinary incontinence. SURGICAL HISTORY: Includes adenoidectomy, appendectomy, back surgery, cholecystectomy, heart catheterization, hysterectomy, joint replacement, tonsillectomy, and tubal ligation. Additional surgeries are noted under the surgical section of the evaluation by the ER physician. SOCIAL HISTORY: Positive for previous heavy tobacco use. She has not smoke currently. She denies any illicit drug use or alcohol use. FAMILY HISTORY: Positive for mother who is at age 65. She did have a prior history of cerebrovascular accident. Her father from massive [place] at age 65. REVIEW OF SYSTEMS: CONSTITUTIONAL: Chills without fever. NEUROLOGIC negative. HEENT negative. CARDIOVASCULAR: Chest tightness. PULMONARY: Shortness of breath, cough, chest congestion, wheezing and yellow phlegm production. GI negative. negative. RHEUMATOLOGIC negative. IMMUNOLOGIC negative. ENDOCRINOLOGIC negative. DERMATOLOGIC negative. PHYSICAL EXAMINATION: VITAL SIGNS: Current vital signs are reviewed. Temperature is 97.7. Heart rate 90, respiratory rate 15, blood pressure 101/68, mean 79, 2 L saturation 98%. Appears to be lying flat in bed. Does not appear to have any audible wheezing, conversational dyspnea or use of accessory muscles. HEENT examination is grossly unremarkable. Nasal O2 in place. NECK: Supple. Full range of motion. No adenopathy or thyromegaly. Neck veins are flat. CARDIOVASCULAR examination reveals regular rhythm and rate. S1, S2 normal. No S3, S4, or murmur. LUNGS: Some mild expiratory wheezes. Breath sounds are diminished. No rhonchi or crackles. Slight prolongation noted. ABDOMEN: Soft. Bowel sounds are heard. EXTREMITIES are intact. No cyanosis, clubbing, or edema. SKIN: Without rash. NEUROLOGIC: Examination is nonfocal. IMAGING: A chest x-ray done yesterday in the emergency room shows some cardiomegaly and some minimal infiltrate of the left lung base. LABS: Reviewed. White count 5, hemoglobin 11.5, hematocrit 36.7, platelet count 133,000. Sodium 143, potassium 4.1, chloride 105, CO2 29, anion gap 9. BUN and creatinine were 14 and 0.74. Troponins are less than 0.012. Calcium 8.8. Influenza studies were negative. Microbiology is currently negative. MEDICATIONS: Reviewed. From the pulmonary standpoint, she is on Zithromax, Symbicort, ceftriaxone, updrafts with albuterol and Atrovent, and Solu-Medrol. These medications are very appropriate given her current situation. ASSESSMENT: 1. Chronic obstructive pulmonary disease exacerbation complicated by purulent tracheobronchitis and possible bronchopneumonia left lower lobe. 2. Previous history of tobacco use. 3. Hyperlipidemia. 4. Hypothyroidism. 5. Coronary artery disease. 6. Angina pectoris. 7. Cerebrovascular accident. 8. Fibromyalgia. 9. Gastroesophageal reflux disease. 10.Hyperlipidemia. 11.Hypertension. 12.History of myocardial infarction. 13.Degenerative joint disease. 14.History of pneumonia. 15.Restless legs syndrome. 16.Valvular heart disease. 17.Multiple other medical problems and comorbidities. PLAN: The patient is currently on Solu-Medrol. She also remains on Symbicort. She is on albuterol and Atrovent updrafts. In addition, she is on Zithromax and ceftriaxone. All these medications are appropriate. She looked pretty stable today. We will continue to follow. Prognosis is guarded. MMODL / IJN: [id number] /
[2019-10-25 20:16] LABS: Glucose,Whole Blood 172 mg/dL (75-99)
[2019-10-25] MEDS: MELATONIN 5 MG TABLET PO SCH (20:21)
[2019-10-25] MEDS: ATORVASTATIN 10 MG TAB PO SCH (20:21)
[2019-10-25] MEDS: diphenhydrAMINE 25 MG CAP PO SCH (20:21)
[2019-10-26] MEDS: methylPREDNISolone SOD SUCCI 125 MG/2 ML VIAL IV SCH ×5 (00:34→23:08)
[2019-10-26] MEDS: ALPRAZolam 0.25 MG TAB PO PRN ×2 (05:46→22:37)
[2019-10-26] MEDS: HYDROcodone/APAP 10-325MG 1 EACH TAB PO SCH ×3 (05:46→22:35)
[2019-10-26] MEDS: LEVOTHYROXINE 112 MCG TAB PO SCH (05:53)
[2019-10-26] MEDS: SYMBICORT 160-4.5 MCG INHALER INHALATION SCH ×2 (07:09→22:39)
[2019-10-26] MEDS: IPRATROPIUM-ALBUTEROL 3 ML NEB INHALATION SCH ×4 (07:09→22:39)
[2019-10-26 07:22] LABS: Glucose,Whole Blood 178 mg/dL (75-99)
[2019-10-26] MEDS: DICLOFENAC SODIUM GEL 100 GM TUBE TOPICAL SCH (08:00)
[2019-10-26] MEDS ORDERED: DICLOFENAC SODIUM GEL 100 GM TUBE TOPICAL PRN (08:01)
[2019-10-26] MEDS: AZITHROMYCIN 500 MG TAB PO SCH (08:10)
[2019-10-26] MEDS: POTASSIUM CHLORIDE ER 10 MEQ TAB.ER.PRT PO SCH (08:11)
[2019-10-26] MEDS: FUROSEMIDE 20 MG TAB PO SCH ×2 (08:11→15:58)
[2019-10-26] MEDS: PANTOPRAZOLE 40 MG TABLET PO SCH ×2 (08:11→17:20)
[2019-10-26] MEDS: ESCITALOPRAM 10 MG TAB PO SCH (08:11)
[2019-10-26] MEDS: INSULIN ASPART (NovoLOG) 100 UNIT/ML VIAL SQ SCH ×4 (08:11→20:41)
[2019-10-26] MEDS: PREGABALIN 75 MG CAP PO SCH ×3 (08:11→22:37)
[2019-10-26] MEDS: HEPARIN SODIUM,PORCINE 5,000 UNIT/ML 1 ML VIAL SQ SCH ×2 (08:11→20:40)
[2019-10-26] MEDS: MAGNESIUM OXIDE 400 MG TAB PO SCH (08:11)
[2019-10-26] MEDS: DIPYRIDAMOLE-ASPIRIN 200-25 MG 1 EACH CPMP.12HR PO SCH ×2 (08:18→20:59)
[2019-10-26 09:10] LABS: Potassium 4.2 mmol/L (3.5-5.1)
[2019-10-26 11:46] LABS: Glucose,Whole Blood 128 mg/dL (75-99)
--- NOTE | 2019-10-26 13:06 | P.PN ---
Subjective Progress Note Date: 10/26/19 Principal diagnosis: Acute exacerbation of COPD comfortably purulent tracheobronchitis and possible left lower lung pneumonia On 10/26/2019 patient seen in follow-up on medical surgical floor. She states her breathing is improving, she sits up in the chair today, breathing easier, she is on 3 L of oxygen with a pulse ox of 94%, no fever or chills, lung sounds reveal some scattered crackles, no major wheezing, no major congestion, but cultures have shown no growth, today's labs have been reviewed, electrolytes within normal limits, B1 is 23 creatinine 0.85. She remains on a combination of Zithromax and Rocephin, nebulized bronchodilators, and oral Lasix. Objective - Vital Signs Vital signs: Vital Signs Temp 97.5 F L 10/26/19 04:59 Pulse 76 10/26/19 11:30 Resp 20 10/26/19 04:59 BP 108/66 10/26/19 04:59 Pulse Ox 94 L 10/26/19 07:09 Intake & Output 10/25/19 10/26/19 10/26/19 18:59 06:59 18:59 Intake Total 200 650 500 Output Total 250 850 Balance -50 -200 500 Intake: Oral 200 650 500 Output: Urine 250 850 Other: Voiding Method Incontinent Incontinent Incontinent # Voids 0 0 - Exam GENERAL EXAM: Alert, pleasant, 74-year-old white female, on 3 L of oxygen with a pulse ox of 94% comfortable in no apparent distress. HEAD: Normocephalic/atraumatic. EYES: Normal reaction of pupils, equal size. Conjunctiva pink, sclera white. NOSE: Clear with pink turbinates. THROAT: No erythema or exudates. NECK: No masses, no JVD, no thyroid enlargement, no adenopathy. CHEST: No chest wall deformity. Symmetrical expansion. LUNGS: Equal air entry with diffuse scattered crackles, but no wheeze, rhonchi or dullness. CVS: Regular rate and rhythm, normal S1 and S2, no gallops, no murmurs, no rubs ABDOMEN: Soft, nontender. No hepatosplenomegaly, normal bowel sounds, no guarding or rigidity. EXTREMITIES: No clubbing, no edema, no cyanosis, 2+ pulses and upper and lower extremities. MUSCULOSKELETAL: Muscle strength and tone normal. SPINE: No scoliosis or deformity SKIN: No rashes CENTRAL NERVOUS SYSTEM: Alert and oriented -3. No focal deficits, tone is normal in all 4 extremities. PSYCHIATRIC: Alert and oriented -3. Appropriate affect. Intact judgment and insight. - Labs CBC & Chem 7: 10/25/19 08:17 10/26/19 08:39 Labs: Abnormal Lab Results - Last 24 Hours (Table) 10/25/19 10/25/19 10/26/19 Range/Units 16:41 20:15 07:06 BUN (7-17) mg/dL Glucose (74-99) mg/dL POC Glucose (mg/dL) 200 H 172 H 178 H (75-99) mg/dL 10/26/19 10/26/19 Range/Units 08:39 11:31 BUN 23 H (7-17) mg/dL Glucose 217 H (74-99) mg/dL POC Glucose (mg/dL) 128 H (75-99) mg/dL Microbiology - Last 24 Hours (Table) 10/24/19 12:55 Blood Culture - Preliminary Blood No Growth after 24 hours Assessment and Plan Plan: Assessment: #1. Acute exacerbation of chronic obstructive pulmonary disease and complicated by a possibility of bronchopneumonia in the left lower lobe #2. Previous history of tobacco use #3. History of hyperlipidemia #4. Hypothyroidism #5. Coronary artery disease #6. Angina pectoris #7. History of CVA #8. Fibromyalgia #9. GERD/reflux #10. Hypertension #11. History of myocardial infarctions #12. History of previous pneumonia #13. Restless leg syndrome #14. Valvular heart disease Plan: Continue current medical treatments, continue Zithromax and Rocephin, nebulized bronchodilators, oral Lasix. Patient is improving, no acute distress, she sits up in the chair, no major wheezing or congestion, no fever or chills, will continue current inpatient treatment, will follow. Follow-up chest x-ray in the morning I performed a history & physical examination of the patient and discussed their management with my nurse practitioner, Rhonda Go. I reviewed the nurse practitioner's note and agree with the documented findings and plan of care. Lung sounds are positive for scattered rales. The findings and the impression was discussed with the patient. I attest to the documentation by the nurse practitioner. Time with Patient: Less than 30
[2019-10-26 13:39] LABS: Basophils % (A) 0 %; Eosinophils # (A) 0.1 k/uL (0-0.7); Eosinophils % (A) 0 %; HCT 38.6 % (34.0-46.0); HGB 11.9 gm/dL (11.4-16.0); Hypochromasia Marked; Lymphocytes # (A) 0.3 k/uL (1.0-4.8); Lymphocytes % (A) 3 %; MCH 28.8 pg (25.0-35.0); MCHC 30.9 g/dL (31.0-37.0); MCV 93.4 fL (80.0-100.0); Mean Platelet Volume 11.3; Monocytes # (A) 0.2 k/uL (0-1.0); Monocytes % (A) 2 %; Neutrophils # (A) 10.4 k/uL (1.3-7.7); Neutrophils % (A) 95 %; Platelet Count 152 k/uL (150-450); RBC 4.13 m/uL (3.80-5.40); RDW 14.4 % (11.5-15.5); WBC 10.9 k/uL (3.8-10.6)
[2019-10-26 16:38] LABS: Glucose,Whole Blood 202 mg/dL (75-99)
[2019-10-26 20:27] LABS: Glucose,Whole Blood 158 mg/dL (75-99)
[2019-10-26] MEDS: MELATONIN 5 MG TABLET PO SCH (20:39)
[2019-10-26] MEDS: diphenhydrAMINE 25 MG CAP PO SCH (20:39)
[2019-10-26] MEDS: ATORVASTATIN 10 MG TAB PO SCH (20:40)
--- NOTE | 2019-10-26 23:45 | P.PN ---
Progress Note - Text Progress Note Date: 10/26/19 Interval history: This is a 74-year-old patient who follows with Dr. Ulrich. Chronic stable me dical conditions include congestive heart failure, hyperlipidemia, hypertension, restless leg syndrome, hypothyroid, home oxygen, secondary pulmonary hypertension, COPD. . Admitted with-COPD exacerbation and left lower lobe pneumonia. Today-breathing is improving. Slight cough. Not much sputum. Appetite is improving. Sitting upon a chair. Review of systems: Was done for constitutional, cardiovascular, GI, pulmonary. relevant finding as above Active Medications Acetaminophen (Tylenol Tab) 500 mg PO Q6HR PRN PRN Reason: Fever and/ or Mild Pain Hydrocodone Bitart/Acetaminophen ([place] 10) 1 each PO TID [facility] Last Admin: 10/26/19 22:35 Dose: 1 each Documented by: Hydrocodone Bitart/Acetaminophen ([place] 10) 1 each PO HS PRN PRN Reason: Pain Albuterol/Ipratropium (Duoneb 0.5 Mg-3 Mg/3 Ml Soln) 3 ml INHALATION RT-QID [facility] Last Admin: 10/26/19 22:39 Dose: Not Given Documented by: Albuterol/Ipratropium (Duoneb 0.5 Mg-3 Mg/3 Ml Soln) 3 ml INHALATION RT-Q2H PRN PRN Reason: Shortness Of Breath Or Wheezing Alprazolam (Xanax) 0.25 mg PO TID PRN PRN Reason: Anxiety Last Admin: 10/26/19 22:37 Dose: 0.25 mg Documented by: Atorvastatin Calcium (Lipitor) [address] [facility] Last Admin: 10/26/19 20:40 Dose: 10 mg Documented by: Azithromycin (Zithromax) 500 mg PO DAILY [facility] Last Admin: 10/26/19 08:10 Dose: 500 mg Documented by: Budesonide/Formoterol Fumarate (Symbicort 160-4.5 Mcg Inhaler) 2 puff INHALATION RT-BID [facility] Last Admin: 10/26/19 22:39 Dose: Not Given Documented by: Diclofenac Sodium (Voltaren Gel) 2 gm TOPICAL QID PRN PRN Reason: Mild Pain Diphenhydramine HCl (Benadryl) 50 mg PO HS [facility] Last Admin: 10/26/19 20:39 Dose: 50 mg Documented by: Dipyridamole/Aspirin (Aggrenox) 1 each PO BID [facility] Last Admin: 10/26/19 20:59 Dose: 1 each Documented by: Escitalopram Oxalate (Lexapro) 10 mg PO DAILY [facility] Last Admin: 10/26/19 08:11 Dose: 10 mg Documented by: Fentanyl (Duragesic 12mcg/Hr Patch) 1 patch TRANSDERM Q72H [facility] Last Admin: 10/25/19 08:12 Dose: 1 patch Documented by: Furosemide (Lasix) 20 mg PO BID@0900,1600 [facility] Last Admin: 10/26/19 15:58 Dose: 20 mg Documented by: Heparin Sodium (Porcine) (Heparin) 5,000 unit SQ Q12HR [facility] Last Admin: 10/26/19 20:40 Dose: 5,000 unit Documented by: Ceftriaxone Sodium 1 gm/ (Sodium Chloride) 50 mls @ 100 mls/hr IVPB Q24HR [facility] Last Admin: 10/26/19 08:11 Dose: 100 mls/hr Documented by: Insulin Aspart (Novolog) 0 unit SQ ACHS [facility]; Protocol Last Admin: 10/26/19 20:41 Dose: 1 unit Documented by: Levothyroxine Sodium (Synthroid) 112 mcg PO 0630 [facility] Last Admin: 10/26/19 05:53 Dose: 112 mcg Documented by: Magnesium Oxide (Mag-Ox) 400 mg PO DAILY [facility] Last Admin: 10/26/19 08:11 Dose: 400 mg Documented by: Melatonin (Melatonin) 5 mg PO HS [facility] Last Admin: 10/26/19 20:39 Dose: 5 mg Documented by: Methylprednisolone Sodium Succinate (Solu-Medrol) 60 mg IV Q6HR [facility] Last Admin: 10/26/19 23:08 Dose: 60 mg Documented by: Nitroglycerin (Nitrostat) 0.4 mg SUBLINGUAL Q5M PRN PRN Reason: Chest Pain Last Admin: 10/25/19 10:21 Dose: 0.4 mg Documented by: Roflumilast [ (Daliresp] 500 Mcg) 500 mcg PO DAILY [facility] Last Admin: 10/26/19 08:12 Dose: Not Given Documented by: Ondansetron HCl (Zofran) 4 mg PO Q8HR PRN PRN Reason: Nausea And Vomiting Last Admin: 10/25/19 10:00 Dose: 4 mg Documented by: Pantoprazole Sodium (Protonix) 40 mg PO AC-BID [facility] Last Admin: 10/26/19 17:20 Dose: 40 mg Documented by: Potassium Chloride (K-Dur 10) 10 meq PO DAILY [facility] Last Admin: 10/26/19 08:11 Dose: 10 meq Documented by: Pregabalin (Lyrica) 150 mg PO TID [facility] Last Admin: 10/26/19 22:37 Dose: 150 mg Documented by: Ropinirole HCl (Requip) 3 mg PO TID [facility] Last Admin: 10/26/19 22:37 Dose: 3 mg Documented by: Physical examination: VITAL SIGNS: 98.2, 106, 16, 110/65, 99% on 3 L GENERAL: Sitting upon a chair, comfortable EYES: Pupils equal. Conjunctiva normal. HEENT: External appearance of nose and ears normal, oral cavity grossly normal. NECK: JVD not raised; masses not palpable. HEART: First and second heart sounds are normal; no edema. LUNGS: Respiratory rate normal; decreased breath sounds. ABDOMEN: Soft, no tenderness, no guarding or rigidity, liver spleen not palpable, no masses palpable. PSYCH: Alert and oriented x3; mood and affect anxiousl. INVESTIGATIONS, reviewed in the clinical context: White count 10.9 hemoglobin 11.9 platelets 150 to percussion 4.2 creatinine 0.85 Assessment: -Acute COPD exacerbation in an ex-smoker, POA improving -Left lower lobe pneumonia suspect gram-negative, POA, improving -Chronic fibromyalgia -GERD -Hyperlipidemia -Essential hypertension -Hypothyroid -Chronic hypoxic respiratory failure due to liters of oxygen -Chronic right diaphragm paralysis -Moderate mitral stenosis nonrheumatic -Severe mitral regurgitation nonrheumatic -Primary, severe osteoarthritis -Chronic pain syndrome -Restless leg syndrome -Chronic urinary stress incontinence -Secondary pulmonary hypertension -Colonic diverticulosis, asymptomatic -Chronic gastritis Plan: Improving. Patient is on ceftriaxone, bronchodilators, IV Solu-Medrol. Appetite is improving. We'll switch to oral steroids in the morning. Hopefully discharge tomorrow.
[2019-10-27] MEDS: NITROGLYCERIN SL TABS 0.4 MG TAB SUBLINGUAL PRN ×2 (02:36→03:15)
[2019-10-27 04:09] LABS: Basophils % (A) 0 %; Eosinophils % (A) 0 %; HCT 33.3 % (34.0-46.0); HGB 10.5 gm/dL (11.4-16.0); Lymphocytes # (A) 0.3 k/uL (1.0-4.8); Lymphocytes % (A) 4 %; MCH 28.1 pg (25.0-35.0); MCHC 31.5 g/dL (31.0-37.0); MCV 89.2 fL (80.0-100.0); Monocytes # (A) 0.2 k/uL (0-1.0); Monocytes % (A) 3 %; Neutrophils # (A) 7.1 k/uL (1.3-7.7); Neutrophils % (A) 93 %; Platelet Count 132 k/uL (150-450); RBC 3.74 m/uL (3.80-5.40); RDW 14.7 % (11.5-15.5); WBC 7.6 k/uL (3.8-10.6)
[2019-10-27 04:25] LABS: Calcium 8.6 mg/dL (8.4-10.2); Potassium 4.4 mmol/L (3.5-5.1)
[2019-10-27] MEDS: LEVOTHYROXINE 112 MCG TAB PO SCH (05:48)
[2019-10-27 07:21] LABS: Glucose,Whole Blood 206 mg/dL (75-99)
[2019-10-27] MEDS: SYMBICORT 160-4.5 MCG INHALER INHALATION SCH (07:29)
[2019-10-27] MEDS: IPRATROPIUM-ALBUTEROL 3 ML NEB INHALATION SCH ×4 (07:29→11:11)
[2019-10-27] MEDS: INSULIN ASPART (NovoLOG) 100 UNIT/ML VIAL SQ SCH ×2 (08:18→12:35)
[2019-10-27] MEDS: PREGABALIN 75 MG CAP PO SCH (08:18)
[2019-10-27] MEDS: HEPARIN SODIUM,PORCINE 5,000 UNIT/ML 1 ML VIAL SQ SCH (08:18)
[2019-10-27] MEDS: PANTOPRAZOLE 40 MG TABLET PO SCH (08:19)
[2019-10-27] MEDS: MAGNESIUM OXIDE 400 MG TAB PO SCH (08:19)
[2019-10-27] MEDS: AZITHROMYCIN 500 MG TAB PO SCH (08:19)
[2019-10-27] MEDS: DIPYRIDAMOLE-ASPIRIN 200-25 MG 1 EACH CPMP.12HR PO SCH (08:19)
[2019-10-27] MEDS: POTASSIUM CHLORIDE ER 10 MEQ TAB.ER.PRT PO SCH (08:19)
[2019-10-27] MEDS: FUROSEMIDE 20 MG TAB PO SCH (08:19)
[2019-10-27] MEDS: ESCITALOPRAM 10 MG TAB PO SCH (08:19)
[2019-10-27] MEDS: HYDROcodone/APAP 10-325MG 1 EACH TAB PO SCH (08:19)
[2019-10-27] MEDS ORDERED: predniSONE 20 MG TAB PO SCH (09:00)
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
[2019-10-27 11:56] LABS: Glucose,Whole Blood 124 mg/dL (75-99)
[2019-10-27 13:57] VITALS: BP 107/62; PULSE 89; RESP 20; TEMP 97.9
--- NOTE | 2019-10-27 15:00 | P.PN ---
Subjective Progress Note Date: 10/27/19 Principal diagnosis: Acute exacerbation of COPD comfortably purulent tracheobronchitis and possible left lower lung pneumonia On 10/26/2019 patient seen in follow-up on medical surgical floor. She states her breathing is improving, she sits up in the chair today, breathing easier, she is on 3 L of oxygen with a pulse ox of 94%, no fever or chills, lung sounds reveal some scattered crackles, no major wheezing, no major congestion, but cultures have shown no growth, today's labs have been reviewed, electrolytes within normal limits, B1 is 23 creatinine 0.85. She remains on a combination of Zithromax and Rocephin, nebulized bronchodilators, and oral Lasix. On 10/27/2019 patient seen in follow-up on medical surgical floor. Patient is doing much better since admission, breathing is easier, 3 L of oxygen her pulse ox of 90%, no fever or chills, sounds are clear on today's exam, no rhonchi, no wheezing. Cultures have been negative, this admission. Oral Lasix, patient has had no issues overnight, patient is being discharged home today, his had no major cough or congestion, no wheezing. His labs have been reviewed, showing white blood cell count of 7.6, hemoglobin of 10.5, sodium of 137, potassium is 4.4, chloride is 99, CO2 34, B1 of 29, creatinine 0.89. Troponin is negative 1. Objective - Vital Signs Vital signs: Vital Signs Temp 97.9 F 10/27/19 12:44 Pulse 89 10/27/19 12:44 Resp 20 10/27/19 12:44 BP 107/62 10/27/19 12:44 Pulse Ox 98 10/27/19 12:44 Intake & Output 10/26/19 10/27/19 10/27/19 18:59 06:59 18:59 Intake Total 2100 860 Output Total 400 Balance 1700 860 Weight 80.1 kg Intake: Oral 2100 860 Output: Urine 400 Other: Voiding Method Incontinent Bedside Commode # Voids 2 4 4 - Exam GENERAL EXAM: Alert, pleasant, 74-year-old white female, on 3 L of oxygen with a pulse ox of 94% comfortable in no apparent distress. HEAD: Normocephalic/atraumatic. EYES: Normal reaction of pupils, equal size. Conjunctiva pink, sclera white. NOSE: Clear with pink turbinates. THROAT: No erythema or exudates. NECK: No masses, no JVD, no thyroid enlargement, no adenopathy. CHEST: No chest wall deformity. Symmetrical expansion. LUNGS: Equal air entry with no wheezes, no rhonchi, no rales CVS: Regular rate and rhythm, normal S1 and S2, no gallops, no murmurs, no rubs ABDOMEN: Soft, nontender. No hepatosplenomegaly, normal bowel sounds, no guarding or rigidity. EXTREMITIES: No clubbing, no edema, no cyanosis, 2+ pulses and upper and lower extremities. MUSCULOSKELETAL: Muscle strength and tone normal. SPINE: No scoliosis or deformity SKIN: No rashes CENTRAL NERVOUS SYSTEM: Alert and oriented -3. No focal deficits, tone is normal in all 4 extremities. PSYCHIATRIC: Alert and oriented -3. Appropriate affect. Intact judgment and insight. - Labs CBC & Chem 7: 10/27/19 03:44 10/27/19 03:44 Labs: Abnormal Lab Results - Last 24 Hours (Table) 10/26/19 10/26/19 10/27/19 Range/Units 16:35 20:26 03:44 RBC 3.74 L (3.80-5.40) m/uL Hgb 10.5 L (11.4-16.0) gm/dL Hct 33.3 L (34.0-46.0) % Plt Count 132 L (150-450) k/uL Lymphocytes # 0.3 L (1.0-4.8) k/uL Carbon Dioxide (22-30) mmol/L BUN (7-17) mg/dL Glucose (74-99) mg/dL POC Glucose (mg/dL) 202 H 158 H (75-99) mg/dL 10/27/19 10/27/19 10/27/19 Range/Units 03:44 07:09 11:52 RBC (3.80-5.40) m/uL Hgb (11.4-16.0) gm/dL Hct (34.0-46.0) % Plt Count (150-450) k/uL Lymphocytes # (1.0-4.8) k/uL Carbon Dioxide 34 H (22-30) mmol/L BUN 29 H (7-17) mg/dL Glucose 141 H (74-99) mg/dL POC Glucose (mg/dL) 206 H 124 H (75-99) mg/dL Microbiology - Last 24 Hours (Table) 10/24/19 12:55 Blood Culture - Preliminary Blood No Growth after 48 hours Assessment and Plan Plan: Assessment: #1. Acute exacerbation of chronic obstructive pulmonary disease and complicated by a possibility of bronchopneumonia in the left lower lobe #2. Previous history of tobacco use #3. History of hyperlipidemia #4. Hypothyroidism #5. Coronary artery disease #6. Angina pectoris #7. History of CVA #8. Fibromyalgia #9. GERD/reflux #10. Hypertension #11. History of myocardial infarctions #12. History of previous pneumonia #13. Restless leg syndrome #14. Valvular heart disease Plan: Patient is stable, no acute issues overnight, vital signs are stable, no major cough or congestion, no wheezing, patient has responded well to inpatient treatments, she is educated with a combination of Rocephin and Zithromax, IV steroids, oral Lasix, and breathing treatments, she improved, and she is being discharged home today. She will need a follow-up with Dr. Faustin in the office in one to 2 weeks. I performed a history & physical examination of the patient and discussed their management with my nurse practitioner, Rhonda Go. I reviewed the nurse practitioner's note and agree with the documented findings and plan of care. Lung sounds are positive for scattered rales. The findings and the impression was discussed with the patient. I attest to the documentation by the nurse practitioner. Time with Patient: Less than 30
--- NOTE | 2019-10-27 21:43 | XR ---
EXAMINATION TYPE: XR chest 2V DATE OF EXAM: 10/27/2019 COMPARISON: 10/24/2019 HISTORY: Chest tightness. Difficulty breathing. Short of breath TECHNIQUE: 2 views FINDINGS: Heart is enlarged. There is mild pulmonary congestion. There are small pleural effusions. T here is right shoulder prosthesis. Bony thorax is intact. IMPRESSION: There is evidence for some minimal heart failure that is unchanged compared to last exam.
--- NOTE | 2019-11-01 00:03 | P.DS ---
Providers Date of admission: 10/26/19 11:51 Expected date of discharge: 10/27/19 Attending physician: Tom Sequeira Consults: 10/24/19 14:14 Consult Physician Routine Consulting Provider: Jan Faustin Consult Reason/Comments: COPD exacerbation Do you want consulting provider notified?: Yes 10/27/19 03:33 Consult Physician Routine Consulting Provider: Rodney Gutierrez Consult Reason/Comments: chest pain Do you want consulting provider notified?: Yes, Notify in am Primary care physician: Ajay Ulrich [facility] Course: Hospital course: This is a 74-year-old patient who follows with Dr. Ulrich. Chronic stable medical conditions include congestive heart failure, hyperlipidemia, hypertension, restless leg syndrome, hypothyroid, home oxygen, secondary pulmonary hypertension, COPD. . Admitted with-COPD exacerbation and left lower lobe pneumonia. Doing better. Much improved.. Consultation: Dr. [facility]ustin [facility] Physical examination: VITAL SIGNS: 97.9, 89, 20, 107/62, 98% on 3 L GENERAL: Sitting upon a chair, comfortable EYES: Pupils equal. Conjunctiva normal. HEENT: External appearance of nose and ears normal, oral cavity grossly normal. NECK: JVD not raised; masses not palpable. HEART: First and second heart sounds are normal; no edema. LUNGS: Respiratory rate normal; decreased breath sounds. ABDOMEN: Soft, no tenderness, no guarding or rigidity, liver spleen not palpable, no masses palpable. PSYCH: Alert and oriented x3; mood and affect anxiousl. INVESTIGATIONS, reviewed in the clinical context: White count 7.6 hemoglobin 10.5 creatinine 0.89 Blood cultures were negative Assessment: -Acute COPD exacerbation in an ex-smoker, POA improved -Left lower lobe pneumonia suspect gram-negative, POA, improved -Chronic fibromyalgia -GERD -Hyperlipidemia -Essential hypertension -Hypothyroid -Chronic hypoxic respiratory failure due to liters of oxygen -Chronic right diaphragm paralysis -Moderate mitral stenosis nonrheumatic -Severe mitral regurgitation nonrheumatic -Primary, severe osteoarthritis -Chronic pain syndrome -Restless leg syndrome -Chronic urinary stress incontinence -Secondary pulmonary hypertension -Colonic diverticulosis, asymptomatic -Chronic gastritis Disposition: Home Patient Condition at Discharge: Stable Plan - Discharge Summary New Discharge Prescriptions: New Cefuroxime Axetil [Ceftin] 500 mg PO BID 3 Days #6 tab Ipratropium-Albuterol Nebulize [Duoneb 0.5 mg-3 mg/3 ml Soln] 3 ml INHALATION RT-QID ampul.neb Potassium Chloride ER [K-Dur 10] 10 meq PO DAILY tab.er.prt Furosemide [Lasix] 20 mg PO BID@0900,1600 tab Pregabalin [Lyrica] 150 mg PO TID cap Melatonin 3 mg PO HS #30 tablet predniSONE 0 mg PO DIRECTED #10 tab Budesonide-Formot 160-4.5 Mcg [Symbicort 160-4.5 Mcg Inhaler] 2 puff INHALATION RT-BID puff Diclofenac Sodium Gel [Voltaren Gel] 2 gm TOPICAL QID PRN tube PRN Reason: Mild Pain Continue Simvastatin [Zocor] 20 mg PO HS rOPINIRole HCL [Requip] 3 mg PO TID Aspirin/Dipyridamole [Aggrenox 25MG -200MG] 1 cap PO BID Levothyroxine Sodium [Synthroid] 112 mcg PO DAILY Magnesium Oxide 400 mg PO DAILY fentaNYL 12MCG/HR PATCH [Duragesic 12MCG/HR] 1 patch TRANSDERM Q72H HYDROcodone/APAP 10-325MG [[place] 10-325] 1 tab PO TID Roflumilast [Daliresp] 500 mcg PO DAILY HYDROcodone/APAP 10-325MG [[place] 10-325] 1 tab PO HS PRN PRN Reason: Pain Ondansetron [Zofran] 4 mg PO Q8HR PRN PRN Reason: Nausea And Vomiting Escitalopram [Lexapro] 10 mg PO DAILY Omeprazole 40 mg PO DAILY Discontinued Famotidine [Pepcid] 20 mg PO BID diphenhydrAMINE HCL [Benadryl] 25 mg PO HS PRN PRN Reason: Allergy Symptoms Discharge Medication List Simvastatin [Zocor] 20 mg PO HS 11/10/14 [History] Aspirin/Dipyridamole [Aggrenox 25MG -200MG] 1 cap PO BID 01/16/17 [History] rOPINIRole HCL [Requip] 3 mg PO TID 01/16/17 [History] Levothyroxine Sodium [Synthroid] 112 mcg PO DAILY 06/04/17 [History] Magnesium Oxide 400 mg PO DAILY 12/31/17 [History] fentaNYL 12MCG/HR PATCH [Duragesic 12MCG/HR] 1 patch TRANSDERM Q72H 12/31/17 [History] HYDROcodone/APAP 10-325MG [[place] 10-325] 1 tab PO TID 05/06/18 [History] HYDROcodone/APAP 10-325MG [[place] 10-325] 1 tab PO HS PRN 02/25/19 [History] Roflumilast [Daliresp] 500 mcg PO DAILY 02/25/19 [History] Ondansetron [Zofran] 4 mg PO Q8HR PRN 07/19/19 [History] Escitalopram [Lexapro] 10 mg PO DAILY 10/24/19 [History] Omeprazole 40 mg PO DAILY 10/24/19 [History] Budesonide-Formot 160-4.5 Mcg [Symbicort 160-4.5 Mcg Inhaler] 2 puff INHALATION RT-BID puff 10/27/19 [Rx] Cefuroxime Axetil [Ceftin] 500 mg PO BID 3 Days #6 tab 10/27/19 [Rx] Diclofenac Sodium Gel [Voltaren Gel] 2 gm TOPICAL QID PRN tube 10/27/19 [Rx] Furosemide [Lasix] 20 mg PO BID@0900,1600 tab 10/27/19 [Rx] Ipratropium-Albuterol Nebulize [Duoneb 0.5 mg-3 mg/3 ml Soln] 3 ml INHALATION RT-QID ampul.neb 10/27/19 [Rx] Melatonin 3 mg PO HS #30 tablet 10/27/19 [Rx] Potassium Chloride ER [K-Dur 10] 10 meq PO DAILY tab.er.prt 10/27/19 [Rx] Pregabalin [Lyrica] 150 mg PO TID cap 10/27/19 [Rx] predniSONE 0 mg PO DIRECTED #10 tab 10/27/19 [Rx] Follow up Appointment(s)/Referral(s): Vinh Soto DO [Doctor of Osteopathic Medicine] - 11/03/19 2:15 pm Ajay Ulrich DO [Primary Care Provider] - 11/01/19 1:30 pm [facility] Visiting Nurse, [NON-STAFF] - Patient Instructions/Handouts: Heart Failure (DC), COPD (Chronic Obstructive Pulmonary Disease) (DC), Pneumonia (DC) Activity/Diet/Wound Care/Special Instructions: Continue home 02 at 3-4L. Activity as tolerated. Diet as tolerated. Home care setup. Discharge Disposition: HOME SELF-CARE
== END 2019-10-27 13:23 | disposition home health service (06) | DRG 190 ==
LOC: EC 11:15 → 4MS4W 14:22 → OBSVTOIN 10-26 11:51
PROVIDERS: ADMIT Hospitalist; ATTEND Hospitalist
DX: J44.1 Chronic obstructive pulmonary disease with (acute) exacerbation (principal); J15.6 Pneumonia due to other Gram-negative bacteria; J96.11 Chronic respiratory failure with hypoxia; J44.0 Chronic obstructive pulmonary disease with (acute) lower respiratory infection; I67.1 Cerebral aneurysm, nonruptured; I27.29 Other secondary pulmonary hypertension; I11.0 Hypertensive heart disease with heart failure; I50.9 Heart failure, unspecified; J98.6 Disorders of diaphragm; I34.2 Nonrheumatic mitral (valve) stenosis; E66.9 Obesity, unspecified; E78.5 Hyperlipidemia, unspecified; E89.0 Postprocedural hypothyroidism; F40.240 Claustrophobia; G25.81 Restless legs syndrome; G89.4 Chronic pain syndrome; I25.119 Atherosclerotic heart disease of native coronary artery with unspecified angina pectoris; I25.2 Old myocardial infarction; K21.9 Gastro-esophageal reflux disease without esophagitis; K29.50 Unspecified chronic gastritis without bleeding; K44.9 Diaphragmatic hernia without obstruction or gangrene; K57.30 Diverticulosis of large intestine without perforation or abscess without bleeding; M19.91 Primary osteoarthritis, unspecified site; M79.7 Fibromyalgia; N39.3 Stress incontinence (female) (male); M47.9 Spondylosis, unspecified; M54.2 Cervicalgia; M54.9 Dorsalgia, unspecified; I69.992 Facial weakness following unspecified cerebrovascular disease; R26.9 Unspecified abnormalities of gait and mobility; Z68.31 Body mass index [BMI] 31.0-31.9, adult; Z99.81 Dependence on supplemental oxygen; Z79.51 Long term (current) use of inhaled steroids; Z79.890 Hormone replacement therapy; Z79.899 Other long term (current) drug therapy; Z79.82 Long term (current) use of aspirin; Z88.1 Allergy status to other antibiotic agents; Z88.5 Allergy status to narcotic agent; Z88.2 Allergy status to sulfonamides; Z88.8 Allergy status to other drugs, medicaments and biological substances; Z98.1 Arthrodesis status; Z96.651 Presence of right artificial knee joint; Z96.611 Presence of right artificial shoulder joint; Z90.710 Acquired absence of both cervix and uterus; Z90.49 Acquired absence of other specified parts of digestive tract; Z87.891 Personal history of nicotine dependence; Z87.01 Personal history of pneumonia (recurrent); Z87.440 Personal history of urinary (tract) infections; Z98.42 Cataract extraction status, left eye; Z98.41 Cataract extraction status, right eye; Z96.1 Presence of intraocular lens; Z98.51 Tubal ligation status; Z82.49 Family history of ischemic heart disease and other diseases of the circulatory system; Z82.3 Family history of stroke
CPT/HCPCS: 36415; 71046; 80048; 80053; 82550; 83735; 83880; 84484; 85025; 85379; 85610; 85730; 87040; 87502; 93005; 94640; 94760; 96365; 96375; 99291

== ENCOUNTER → 2020-01-11 | Outpatient (CLI) | payer MEDICARE ==
[2020-01-11 13:28] LABS: Anisocytosis Slight; HCT 37.3 % (34.0-46.0); HGB 11.7 gm/dL (11.4-16.0); Hypochromasia Slight; MCH 27.1 pg (25.0-35.0); MCHC 31.3 g/dL (31.0-37.0); MCV 86.5 fL (80.0-100.0); Mean Platelet Volume 9.3; Platelet Count 149 k/uL (150-450); RBC 4.31 m/uL (3.80-5.40); WBC 5.9 k/uL (3.8-10.6)
[2020-01-11 13:38] LABS: Prothrombin Time 10.1 sec (9.0-12.0)
[2020-01-11 18:54] LABS: African American GFR (CKD) 64.7 (60.0-200.0); Albumin 4.5 g/dL (3.80-4.90); Anion Gap 8.5 mmol/L (4.00-12.00); Carbon Dioxide 29.5 mmol/L (21.6-31.8); Globulin 1.5 g/dL (1.6-3.3); Non-African American GFR(CKD) 55.8 (60.0-200.0); Potassium 4.6 mmol/L (3.5-5.5); Total Bilirubin 0.5 mg/dL (0.3-1.2)
== END | disposition home or self-care (01) ==
LOC: LABWHC1 12:38
PROVIDERS: ATTEND Internal Medicine Interventional Cardiology
DX: R07.2 Precordial pain (principal); I34.0 Nonrheumatic mitral (valve) insufficiency; R06.09 Other forms of dyspnea
CPT/HCPCS: 36415; 80053; 85027; 85610

== ENCOUNTER 2020-01-21 11:03 | Inpatient (IN) | payer MEDICARE ==
[2020-01-21] MEDS ORDERED: methylPREDNISolone SOD SUCCI 125 MG/2 ML VIAL IV STA (11:28)
[2020-01-21] MEDS ORDERED: IPRATROPIUM-ALBUTEROL 3 ML NEB INHALATION STA (11:28)
[2020-01-21 11:43] LABS: Basophils % (A) 1 %; Eosinophils % (A) 1 %; HCT 37.5 % (34.0-46.0); HGB 11.3 gm/dL (11.4-16.0); Hypochromasia Slight; Lymphocytes # (A) 0.6 k/uL (1.0-4.8); Lymphocytes % (A) 14 %; MCH 26.2 pg (25.0-35.0); MCHC 30.1 g/dL (31.0-37.0); MCV 86.8 fL (80.0-100.0); Monocytes # (A) 0.3 k/uL (0-1.0); Monocytes % (A) 7 %; Neutrophils # (A) 3.7 k/uL (1.3-7.7); Neutrophils % (A) 77 %; Platelet Count 151 k/uL (150-450); RBC 4.32 m/uL (3.80-5.40); RDW 15.8 % (11.5-15.5); WBC 4.8 k/uL (3.8-10.6)
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
[2020-01-21 12:04] LABS: INR 1.1 (<1.2); Partial Thromboplastin Time 22.1 sec (22.0-30.0); Prothrombin Time 10.9 sec (9.0-12.0)
--- NOTE | 2020-01-21 12:11 | XR ---
EXAMINATION TYPE: XR chest 2V DATE OF EXAM: 01/21/2020 COMPARISON: 12/28/2018 TECHNIQUE: PA and lateral views submitted. HISTORY: Shortness of breath FINDINGS: Postsurgical change right shoulder and arthropathy left shoulder. Diffuse osteopenia. Heart size mild ly prominent and there is a coarsened interstitium with by basilar subsegmental consolidation. Degene rative change of the spine. IMPRESSION: 1. Correlate for COPD with chronic interstitial lung disease. Superimposed mild venous congestion or interstitial pneumonitis in the differential diagnosis.
[2020-01-21 12:14] LABS: Albumin 3.6 g/dL (3.5-5.0); Calcium 8.4 mg/dL (8.4-10.2); Magnesium 2.2 mg/dL (1.6-2.3); Total Bilirubin 0.8 mg/dL (0.2-1.3)
[2020-01-21] MEDS ORDERED: IPRATROPIUM-ALBUTEROL 3 ML NEB INHALATION PRN (13:22)
[2020-01-21] MEDS ORDERED: ONDANSETRON 4 MG/2 ML VIAL IVP STA (13:22)
[2020-01-21] MEDS ORDERED: HYDROcodone/APAP 10-325MG 1 EACH TAB PO PRN (13:23)
[2020-01-21] MEDS ORDERED: SODIUM CHLORIDE 0.9% 500 ML 500 ML IV ONE (13:46)
[2020-01-21] MEDS: IPRATROPIUM-ALBUTEROL 3 ML NEB INHALATION SCH ×2 (16:24→20:25)
[2020-01-21] MEDS ORDERED: ONDANSETRON ODT 4 MG TAB PO PRN (16:24)
[2020-01-21] MEDS ORDERED: DICLOFENAC SODIUM GEL 100 GM TUBE TOPICAL PRN (16:24)
[2020-01-21] MEDS: AZITHROMYCIN 500 MG TAB PO SCH (16:36)
[2020-01-21] MEDS: HYDROcodone/APAP 10-325MG 1 EACH TAB PO SCH ×2 (16:36→20:30)
[2020-01-21] MEDS: FUROSEMIDE 10 MG TAB PO SCH (16:36)
[2020-01-21] MEDS: PANTOPRAZOLE 40 MG TABLET PO SCH (17:51)
[2020-01-21] MEDS: methylPREDNISolone SOD SUCCI 125 MG/2 ML VIAL IV SCH ×2 (17:52→23:02)
[2020-01-21] MEDS: PREGABALIN 75 MG CAP PO SCH (20:30)
[2020-01-21] MEDS: FAMOTIDINE 20 MG TAB PO SCH (20:30)
[2020-01-21] MEDS: DIPYRIDAMOLE-ASPIRIN 200-25 MG 1 EACH CPMP.12HR PO SCH (20:30)
[2020-01-21] MEDS: MELATONIN 5 MG TABLET PO SCH (20:30)
[2020-01-21] MEDS: ATORVASTATIN 10 MG TAB PO SCH (20:30)
[2020-01-21] MEDS: diphenhydrAMINE 25 MG CAP PO SCH (20:30)
[2020-01-21] MEDS ORDERED: LACTULOSE 20 GM/30 ML CUP PO ONE (22:22)
[2020-01-21] MEDS ORDERED: ONDANSETRON 4 MG/2 ML VIAL IVP PRN (22:22)
[2020-01-21] MEDS: LACTATED RINGERS 1,000 ML IV SCH (23:02)
[2020-01-22 00:31] LABS: Appearance,Urine Cloudy (Clear); Bacteria,Urine Rare /hpf; Bilirubin,Urine Negative (Negative); Blood,Urine Negative (Negative); Color,Urine Yellow; Glucose,Urine (UA) Negative (Negative); Hyaline Casts,Urine 17 /lpf (0-2); Ketones,Urine Negative (Negative); Leukocyte Esterase,Urine Negative (Negative); Mucus,Urine Many /hpf; Nitrite,Urine Negative (Negative); PH, Urine 5.5 (5.0-8.0); Protein,Urine Trace (Negative); RBC,Urine <1 /hpf (0-5); Specific Gravity,Urine 1.025 (1.001-1.035); Squamous Epithelial Cell,Urine 7 /hpf (0-4); Urobilinogen,Urine <2.0 mg/dL (<2.0); WBC,Urine 3 /hpf (0-5)
[2020-01-22] MEDS: methylPREDNISolone SOD SUCCI 125 MG/2 ML VIAL IV SCH ×2 (05:27→12:56)
[2020-01-22] MEDS: LEVOTHYROXINE 112 MCG TAB PO SCH (05:27)
[2020-01-22] MEDS: IPRATROPIUM-ALBUTEROL 3 ML NEB INHALATION SCH ×4 (07:54→21:04)
[2020-01-22] MEDS: PREGABALIN 75 MG CAP PO SCH ×3 (08:02→21:29)
[2020-01-22] MEDS: DIPYRIDAMOLE-ASPIRIN 200-25 MG 1 EACH CPMP.12HR PO SCH ×2 (08:02→21:30)
[2020-01-22] MEDS: FAMOTIDINE 20 MG TAB PO SCH ×2 (08:02→21:29)
[2020-01-22] MEDS: CALCIUM CARB-VIT D 500MG-200UN 1 EACH TAB PO SCH (08:02)
[2020-01-22] MEDS: FUROSEMIDE 10 MG TAB PO SCH ×2 (08:02→17:24)
[2020-01-22] MEDS: PANTOPRAZOLE 40 MG TABLET PO SCH ×2 (08:02→17:26)
[2020-01-22] MEDS: MAGNESIUM OXIDE 400 MG TAB PO SCH (08:03)
[2020-01-22] MEDS: POTASSIUM CHLORIDE ER 10 MEQ TAB.ER.PRT PO SCH (08:03)
[2020-01-22] MEDS: HYDROcodone/APAP 10-325MG 1 EACH TAB PO SCH ×3 (08:04→21:29)
[2020-01-22] MEDS: LACTATED RINGERS 1,000 ML IV SCH ×3 (08:05→21:32)
[2020-01-22] MEDS: NITROGLYCERIN SL TABS 0.4 MG TAB SUBLINGUAL PRN ×3 (08:24→08:44)
[2020-01-22] MEDS: ESCITALOPRAM 10 MG TAB PO SCH (08:57)
[2020-01-22] MEDS: Roflumilast [Daliresp] 250 MCG PO SCH (08:58)
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
[2020-01-22] MEDS: AZITHROMYCIN 500 MG TAB PO SCH (17:24)
[2020-01-22] MEDS: ENOXAPARIN 40 MG/0.4 ML SYRINGE SQ SCH (17:26)
[2020-01-22] MEDS: methylPREDNISolone SOD SUCCI 40 MG/ML 1 ML VIAL IV SCH ×2 (17:26→23:38)
[2020-01-22] MEDS: PSYLLIUM HUSK 100% 6 GM PACKET PO SCH (17:27)
[2020-01-22] MEDS: diphenhydrAMINE 25 MG CAP PO SCH (21:29)
[2020-01-22] MEDS: ATORVASTATIN 10 MG TAB PO SCH (21:29)
[2020-01-22] MEDS: MELATONIN 5 MG TABLET PO SCH (21:29)
[2020-01-23] MEDS: LEVOTHYROXINE 112 MCG TAB PO SCH (06:11)
[2020-01-23] MEDS: LACTATED RINGERS 1,000 ML IV SCH ×2 (06:12→14:36)
[2020-01-23] MEDS: DIPYRIDAMOLE-ASPIRIN 200-25 MG 1 EACH CPMP.12HR PO SCH ×2 (07:48→20:41)
[2020-01-23] MEDS: ESCITALOPRAM 10 MG TAB PO SCH (07:48)
[2020-01-23] MEDS: CALCIUM CARB-VIT D 500MG-200UN 1 EACH TAB PO SCH (07:48)
[2020-01-23] MEDS: PANTOPRAZOLE 40 MG TABLET PO SCH ×2 (07:48→15:50)
[2020-01-23] MEDS: FAMOTIDINE 20 MG TAB PO SCH ×2 (07:48→20:41)
[2020-01-23] MEDS: FUROSEMIDE 10 MG TAB PO SCH ×2 (07:49→15:49)
[2020-01-23] MEDS: ENOXAPARIN 40 MG/0.4 ML SYRINGE SQ SCH (07:49)
[2020-01-23] MEDS: methylPREDNISolone SOD SUCCI 40 MG/ML 1 ML VIAL IV SCH ×2 (07:49→15:49)
[2020-01-23] MEDS: POTASSIUM CHLORIDE ER 10 MEQ TAB.ER.PRT PO SCH (07:49)
[2020-01-23] MEDS: MAGNESIUM OXIDE 400 MG TAB PO SCH (07:49)
[2020-01-23] MEDS: PSYLLIUM HUSK 100% 6 GM PACKET PO SCH (07:49)
[2020-01-23] MEDS: PREGABALIN 75 MG CAP PO SCH ×3 (07:50→22:06)
[2020-01-23] MEDS: Roflumilast [Daliresp] 250 MCG PO SCH (07:50)
[2020-01-23] MEDS: HYDROcodone/APAP 10-325MG 1 EACH TAB PO SCH ×3 (07:51→22:06)
[2020-01-23] MEDS: IPRATROPIUM-ALBUTEROL 3 ML NEB INHALATION SCH ×4 (08:16→19:52)
[2020-01-23] MEDS: diphenhydrAMINE 25 MG CAP PO PRN (10:23)
--- NOTE | 2020-01-23 14:03 | P.PN ---
Subjective Progress Note Date: 01/23/20 72-year-old female patient with known history of COPD has been maintained on DuoNeb neb last treatment [id number] along with oxygen at 2 L/m nasal cannula, The patient came into the hospital because of worsening shortness of breath a few days duration. She also felt tightness in her chest and congestion and worsening shortness of breath above and beyond her baseline. She is known to have advanced COPD and she's been utilizing oxygen. She also had Symbicort as maintenance which she was unable to take because of cost and lack of insurance coverage for that medication. She was having some mild nausea. No abdominal pain. On and off emesis which has been followed up by Dr. Saldana and she was supposed to have a scope done to evaluate her upper GI tract. No swelling in lower extremities. She is currently on a combination of bronchodilators and steroids. Influenza screen was negative. Chest x-ray shows chronic COPD. Note that the patient has a baseline FEV1 of 1.13 L which is 50% of predicted. She has chronic hypoxic respiratory failure on oxygen between 2 and 3 L per minute nasal cannula. Previous CAT scan of the chest showed some atelectatic changes in the mid and the lower lung chan bilaterally. No lymphadenopathy. No tumors. She has a moderate-sized hiatal hernia and she has some chronic scarring/atelectasis in lung bases bilaterally. The patient also is known to have multiple medical problems and comorbidities. 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 She also has chronic degenerative arthritis and she has undergone a right shoulder and the right knee replacement and previous history of cervical spine fusion. She has chronic back pain and restless leg syndrome. No significant leukocytosis. The rest of the blood work essentially within normal limits. Cardiac enzymes have been negative. Influenza screen is negative. On today's evaluation of 01/23/2020 MO the patient is feeling slightly better compared to yesterday. Less congested and wheezy compared to yesterday. She is still producing good amount of urine output. She is on lactated Ringer at the rate of 125 mL an hour. No fever or chills. No chest pain. No palpitation. Remains on bronchodilators and systemic steroids. Objective - Vital Signs Vital signs: Vital Signs Temp 97.4 F L 01/23/20 11:40 Pulse 84 01/23/20 11:40 Resp 16 01/23/20 11:40 BP 94/53 01/23/20 11:40 Pulse Ox 96 01/23/20 11:40 Intake & Output 01/22/20 01/23/20 01/23/20 17:59 06:59 18:59 Intake Total 1960 Output Total Balance 1960 Weight Intake: Intake, IV Titration 1000 Amount Lactated Ringers 1,000 ml 1000 @ 125 mls/hr IV .Q8H COUNTS INCLUDE 234 BEDS AT THE [facility] Rx#:[id number] Oral 960 Output: Stool Other: Voiding Method # Voids 4 - Exam Gen. appearance the patient is calm comfortable and mild degree of respiratory distress, a bit anxious Head exam was generally normal. There was no scleral icterus or corneal arcus. Mucous membranes were moist. Neck was supple and without jugular venous distension, thyromegaly, or carotid bruits. Carotids were easily palpable bilaterally. There was no adenopathy. Lungs sounds are diminished bilaterally along with marked diminished breath sounds and diffuse expiratory wheezes heard throughout the lung chan bilaterally. Exhalation phases especially prolonged Cardiac exam revealed the PMI to be normally situated and sized. The rhythm was regular and no extrasystoles were noted during several minutes of auscultation. The first and second heart sounds were normal and physiologic splitting of the second heart sound was noted. There were grade 2/6 systolic ejection murmurs along the left lower sternal border, rubs, clicks, or gallops. Abdominal exam revealed normal bowel sounds. The abdomen was soft, non-tender, and without masses, organomegaly, or appreciable enlargement of the abdominal aorta. Examination of the extremities revealed easily palpable radial, femoral and pedal pulses. There was no cyanosis, clubbing or edema. Muscular skeletal exam shows normal strength and tone. The patient has had a right shoulder replacement scars in place and the patient has also had a right knee replacement the scar is in place. No scoliosis. No deformities. Examination of the skin revealed no evidence of significant rashes, suspicious appearing nevi or other concerning lesions. Neurologically the patient has some right facial weakness otherwise motor function is equal and symmetrical in all 4 extremities and the patient is awake and alert 3. Psychiatric the patient has normal mood and affect and judgment and insight. - Labs CBC & Chem 7: 03/06/20 11:22 01/21/20 11:22 Labs: Microbiology - Last 24 Hours (Table) 01/21/20 11:55 Blood Culture - Preliminary Blood No Growth after 24 hours Assessment and Plan Plan: 1 acute COPD exacerbation , no evidence of pneumonia 2 valvular heart disease with moderate mitral stenosis and severe mitral regurgitation with a component of heart failure as evident on chest x-ray on admission. The patient is a preserved LV function with an ejection fraction of 60-65% (Moderate mitral stenosis nonrheumatic, Severe mitral regurgitation nonrheumatic), -Secondary pulmonary hypertension 3 advanced oxygen-dependent COPD maintained on DuoNeb nebulized treatment [id number], the patient's baseline FEV1 is in order of 1.13 L which is 50% of predicted based on previous pulmonary function testing. 4 CVA with recurrent TIAs and the residual right facial weakness 5 hypertension 6 hyperlipidemia 7 hypothyroidism 8 coronary artery disease 9 fibromyalgia 10 chronic pain 11 GERD 12 Hypothyroid 13 Chronic hypoxic respiratory failure currently on 2 L per minute nasal cannula 14 Chronic right diaphragm paralysis 15 Primary, severe osteoarthritis 16 Chronic pain syndrome 17 Restless leg syndrome 18 Chronic urinary stress incontinence 19 Colonic diverticulosis, asymptomatic Plan Continue same treatment. IV fluids to KVO. We'll continue to follow.
[2020-01-23] MEDS: AZITHROMYCIN 500 MG TAB PO SCH (15:48)
[2020-01-23] MEDS: MELATONIN 5 MG TABLET PO SCH (20:41)
[2020-01-23] MEDS: ATORVASTATIN 10 MG TAB PO SCH (20:41)
[2020-01-23] MEDS: diphenhydrAMINE 25 MG CAP PO SCH (20:41)
--- NOTE | 2020-01-23 21:07 | P.PN ---
Progress Note - Text Progress Note Date: 01/23/20 Chief Complaint: Short of breath History of presenting complaint: This is a 74-year-old patient who follows with Dr. Ulrich. Chronic stable medical conditions include congestive heart failure, hyperlipidemia, hypertension, restless leg syndrome, hypothyroid, home oxygen, secondary pulmonary hypertension, Patient presents with short of breath and wheezing slight cough. Symptoms started to 3 days ago. No sputum no fever or chills. Intermittent chest pressure no radiation. Appetite went down. Not had a bowel movement for last 4 days tired and rundown. Pain is localized to his central chest. No radiation. No dizziness no lightheadedness. Pain is intermittent. Admitted with-COPD exacerbation. Today-feeling a bit better. Did tolerate some diet. Less wheezing. Slight cough. No fever no chills. Overall looks better. Review of systems: Was done for constitutional, cardiovascular, GI, pulmonary. relevant finding as above Active Medications Hydrocodone Bitart/Acetaminophen ([place] 10) 1 each PO HS PRN PRN Reason: Pain Hydrocodone Bitart/Acetaminophen ([place] 10) 1 each PO TID [facility] Last Admin: 01/23/20 15:48 Dose: 1 each Documented by: Albuterol/Ipratropium (Duoneb 0.5 Mg-3 Mg/3 Ml Soln) 3 ml INHALATION RT-Q4H PRN PRN Reason: Shortness Of Breath Or Wheezing Albuterol/Ipratropium (Duoneb 0.5 Mg-3 Mg/3 Ml Soln) 3 ml INHALATION RT-QID [facility] Last Admin: 01/23/20 19:52 Dose: 3 ml Documented by: Atorvastatin Calcium (Lipitor) 10 mg PO [facility] Last Admin: 01/23/20 20:41 Dose: 10 mg Documented by: Azithromycin (Zithromax) 500 mg PO Q24H [facility] Last Admin: 01/23/20 15:48 Dose: 500 mg Documented by: Calcium Carbonate (Oscal 500+D) 1 each PO DAILY [facility] Last Admin: 01/23/20 07:48 Dose: 1 each Documented by: Diclofenac Sodium (Voltaren Gel) 2 gm TOPICAL QID PRN PRN Reason: Mild Pain Diphenhydramine HCl (Benadryl) 50 mg PO [facility] Last Admin: 01/23/20 20:41 Dose: 50 mg Documented by: Diphenhydramine HCl (Benadryl) 25 mg PO Q8HR PRN PRN Reason: Itching Last Admin: 01/23/20 10:23 Dose: 25 mg Documented by: Dipyridamole/Aspirin (Aggrenox) 1 each PO BID [facility] Last Admin: 01/23/20 20:41 Dose: 1 each Documented by: Enoxaparin Sodium (Lovenox) 40 mg SQ DAILY [facility] Last Admin: 01/23/20 07:49 Dose: 40 mg Documented by: Escitalopram Oxalate (Lexapro) 10 mg PO DAILY [facility] Last Admin: 01/23/20 07:48 Dose: 10 mg Documented by: Famotidine (Pepcid) 20 mg PO BID [facility] Last Admin: 01/23/20 20:41 Dose: 20 mg Documented by: Fentanyl (Duragesic 12mcg/Hr Patch) 1 patch TRANSDERM Q72H [facility] Last Admin: 01/22/20 08:04 Dose: 1 patch Documented by: Furosemide (Lasix) 10 mg PO BID@0900,1600 [facility] Last Admin: 01/23/20 15:49 Dose: 10 mg Documented by: Lactated Ringer's (Lactated Ringers) 1,000 mls @ 125 mls/hr IV .Q8H [facility] Last Admin: 01/23/20 14:36 Dose: 125 mls/hr Documented by: Levothyroxine Sodium (Synthroid) 112 mcg PO DAILY@0630 [facility] Last Admin: 01/23/20 06:11 Dose: 112 mcg Documented by: Magnesium Oxide (Mag-Ox) 400 mg PO DAILY [facility] Last Admin: 01/23/20 07:49 Dose: 400 mg Documented by: Melatonin (Melatonin) 10 mg PO HS [facility] Last Admin: 01/23/20 20:41 Dose: 10 mg Documented by: Methylprednisolone Sodium Succinate (Solu-Medrol) 40 mg IV Q8HR [facility] Last Admin: 01/23/20 15:49 Dose: 40 mg Documented by: Nitroglycerin (Nitrostat) 0.4 mg SUBLINGUAL Q5M PRN PRN Reason: Chest Pain Last Admin: 01/22/20 08:44 Dose: 0.4 mg Documented by: Roflumilast [ (Daliresp] 250 Mcg) 250 mcg PO DAILY [facility] Last Admin: 01/23/20 07:50 Dose: Not Given Documented by: Ondansetron HCl (Zofran Odt) 4 mg PO Q8H PRN PRN Reason: Nausea Ondansetron HCl (Zofran) 4 mg IVP Q6HR PRN PRN Reason: Nausea And Vomiting Pantoprazole Sodium (Protonix) 40 mg PO AC-BID [facility] Last Admin: 01/23/20 15:50 Dose: 40 mg Documented by: Potassium Chloride (K-Dur 10) 10 meq PO DAILY [facility] Last Admin: 01/23/20 07:49 Dose: 10 meq Documented by: Pregabalin (Lyrica) 150 mg PO TID [facility] Last Admin: 01/23/20 15:49 Dose: 150 mg Documented by: Psyllium Hydrophilic Mucilloid (Metamucil) 6 gm PO DAILY [facility] Last Admin: 01/23/20 07:49 Dose: 6 gm Documented by: Ropinirole HCl (Requip) 3 mg PO TID [facility] Last Admin: 01/23/20 15:48 Dose: 3 mg Documented by: Physical examination: VITAL SIGNS: 97.4, 84, 16, 94/53, 96% on room air GENERAL: Laying in bed, awake EYES: Pupils equal. Conjunctiva normal. HEENT: External appearance of nose and ears normal, oral cavity grossly normal. NECK: JVD not raised; masses not palpable. HEART: First and second heart sounds are normal; no edema. LUNGS: Respiratory rate increased decreased breath sounds. ABDOMEN: Soft, no tenderness, no guarding or rigidity, liver spleen not palpable, no masses palpable. PSYCH: Alert and oriented x3; mood and affect anxious. INVESTIGATIONS, reviewed in the clinical context: White count 4.8 hemoglobin 11.3 platelets 151 potassium 4 creatinine 0.79 Troponin I 3 negative EKG tracing personally reviewed by me-no sinus rhythm Chest x-ray film personally reviewed by me-chronic interstitial changes Assessment: -Acute COPD exacerbation in an [id number] -Chronic fibromyalgia -GERD -Hyperlipidemia -Essential hypertension -Hypothyroid -Chronic hypoxic respiratory failure due to liters of oxygen -Chronic right diaphragm paralysis -Moderate mitral stenosis nonrheumatic -Severe mitral regurgitation nonrheumatic -Primary, severe osteoarthritis -Chronic pain syndrome -Restless leg syndrome -Chronic urinary stress incontinence -Secondary pulmonary hypertension -Colonic diverticulosis, asymptomatic Plan: Doing better. Continue with bronchodilator steroids. Cut back on steroids. Patient states she had a bowel movement yesterday
[2020-01-24] MEDS: methylPREDNISolone SOD SUCCI 40 MG/ML 1 ML VIAL IV SCH ×2 (00:15→08:49)
[2020-01-24] MEDS: HYDROcodone/APAP 10-325MG 1 EACH TAB PO SCH (05:54)
[2020-01-24] MEDS: LEVOTHYROXINE 112 MCG TAB PO SCH (05:54)
[2020-01-24] MEDS: IPRATROPIUM-ALBUTEROL 3 ML NEB INHALATION SCH ×2 (07:37→10:50)
[2020-01-24] MEDS: Roflumilast [Daliresp] 250 MCG PO SCH (07:40)
[2020-01-24] MEDS: diphenhydrAMINE 25 MG CAP PO PRN (08:48)
[2020-01-24] MEDS: ENOXAPARIN 40 MG/0.4 ML SYRINGE SQ SCH (08:48)
[2020-01-24] MEDS: PSYLLIUM HUSK 100% 6 GM PACKET PO SCH (08:48)
[2020-01-24] MEDS: PREGABALIN 75 MG CAP PO SCH (08:49)
[2020-01-24] MEDS: DIPYRIDAMOLE-ASPIRIN 200-25 MG 1 EACH CPMP.12HR PO SCH (08:49)
[2020-01-24] MEDS: ESCITALOPRAM 10 MG TAB PO SCH (08:49)
[2020-01-24] MEDS: POTASSIUM CHLORIDE ER 10 MEQ TAB.ER.PRT PO SCH (08:49)
[2020-01-24] MEDS: PANTOPRAZOLE 40 MG TABLET PO SCH (08:49)
[2020-01-24] MEDS: FAMOTIDINE 20 MG TAB PO SCH (08:49)
[2020-01-24] MEDS: CALCIUM CARB-VIT D 500MG-200UN 1 EACH TAB PO SCH (08:50)
[2020-01-24] MEDS: MAGNESIUM OXIDE 400 MG TAB PO SCH (08:50)
[2020-01-24] MEDS: FUROSEMIDE 10 MG TAB PO SCH (08:50)
--- NOTE | 2020-01-24 10:28 | CDI ---
Documentation Clarification Form Date: 01/24/2020 10:12:41 AM From: Nila SimsPAOLA jose, CCDS Admit Date: 01/21/2020 01:23:00 PM Patient Name: Jessica Scanlon Visit Number: [id number] Discharge Date: ATTENTION: The Clinical Documentation Specialists (CDI) and [facility] Coding Staff appreciate your assistance in clarifying documentation. Please respond to the clarification below the line at the bottom and electronically sign. The CDI & [facility] Coding staff will review the response and follow-up if needed. Please note: Queries are made part of the Legal Health Record. If you have any questions, please contact the author of this message via ITS. Dr. Christy Saez: Per the 01/21 Pulmonary Consult, heart failure is documented: "Valvular heart disease with moderate mitral stenosis and severe mitral regurgitation with a component of heart failure as evident on chest x-ray on admission. The patient has a preserved LV function with an ejection fraction of 60-65%." Per the 01/21 Cardiology Consult: "Most recent echocardiogram obtained in 2018 reveals preserved LV systolic function with ejection fraction 55-60%, mild aortic stenosis with a mean gradient of 10 mmHg, mild to moderate mitral stenosis with a mean radiant of 80 mmHg and mild mitral regurgitation." History/Risk Factors: COPD, Valvular heart disease with mitral stenosis & regurgitation, Secondary pulmonary hypertension, Chronic respiratory failure on home O2, CVA w/recurrent TIAs & residual right facial weakness, Hypertension, Hypothyroidism, CAD & former smoker. Clinical Indicators: Presented to the ED on 01/20 with SOB & cough, diagnosed with acute exacerbation of COPD. VS 01/20: P 67, R 18, BP 108/65, PO 100 on 3Lnc LAB 01/20: CO2 34^, BUN 18^, Glucose 118^, BNP 821. RAD: CXR 01/20: Correlate for COPD with chronic interstitial lung disease. Superimposed mild venous congestion or interstitial pneumonitis in the differential diagnosis. Echocardiogram Results: Most recent 2018 noted above. Treatment: Home meds include po Lasix 10 mg BID, Symbicort INH. 01/20: INH Albuterol, IV Solumedrol, IV fluid bolus 500 mls @ 999 mls/hr, po Lasix 10 mg BID (Home dose). In your professional opinion, can you please clarify the acuity and type of CHF if known? Heart Failure is ruled out Heart Failure, please specify the acuity & type: ischemic Unable to Determine Other, please specify (Last Revision: February 2018) MTDD
[2020-01-24 12:00] VITALS: BP 109/60; PULSE 80; RESP 16; TEMP 96.9
[2020-01-24] MEDS ORDERED: predniSONE 20 MG TAB PO ONE (12:00)
--- NOTE | 2020-01-24 17:35 | P.DS ---
Providers Date of admission: 01/21/20 13:23 Expected date of discharge: 01/24/20 Attending physician: Tom Sequeira Consults: 01/21/20 13:23 Consult Physician Routine Consulting Provider: Jan Faustin Consult Reason/Comments: COPD Do you want consulting provider notified?: Yes 01/22/20 08:52 Consult Physician Stat Consulting Provider: Christy Saez Consult Reason/Comments: Chest pain / chest tightness Do you want consulting provider notified?: Already Contacted Primary care physician: Ajay Ulrich [place] [facility] Course: Chief Complaint: Short of breath History of presenting complaint: This is a 74-year-old patient who follows with Dr. Ulrich. Chronic stable medical conditions include congestive heart failure, hyperlipidemia, hypertension, restless leg syndrome, hypothyroid, home oxygen, secondary pulmonary hypertension, Patient presents with short of breath and wheezing slight cough. Symptoms started to 3 days ago. No sputum no fever or chills. Intermittent chest pressure no radiation. Appetite went down. Not had a bowel movement for last 4 days tired and rundown. Pain is localized to his central chest. No radiation. No dizziness no lightheadedness. Pain is intermittent. Admitted with-COPD exacerbation. Today-. Breathing much improved. Sitting up in a chair. Tolerating a diet. Discharge planning discussed. Consultation: Dr. Grant from pulmonary Dr. Saez from cardiology Physical examination: VITAL SIGNS: 96.9, 80, 16, blood pressure 109/60, 99% on 3 L GENERAL: Sitting over a chair, comfortable EYES: Pupils equal. Conjunctiva normal. HEENT: External appearance of nose and ears normal, oral cavity grossly normal. NECK: JVD not raised; masses not palpable. HEART: First and second heart sounds are normal; no edema. LUNGS: Respiratory rate normal, decreased breath sounds. ABDOMEN: Soft, no tenderness, no guarding or rigidity, liver spleen not palpable, no masses palpable. PSYCH: Alert and oriented x3; mood and affect normal INVESTIGATIONS, reviewed in the clinical context: White count 4.8 hemoglobin 11.3 platelets 151 potassium 4 creatinine 0.79 Troponin I 3 negative EKG tracing personally reviewed by me-no sinus rhythm Chest x-ray film personally reviewed by me-chronic interstitial changes Assessment: -Acute COPD exacerbation in an ex-smoker, POA -Chronic fibromyalgia -GERD -Hyperlipidemia -Essential hypertension -Hypothyroid -Chronic hypoxic respiratory failure due to liters of oxygen -Chronic right diaphragm paralysis -Moderate mitral stenosis nonrheumatic -Severe mitral regurgitation nonrheumatic -Primary, severe osteoarthritis -Chronic pain syndrome -Restless leg syndrome -Chronic urinary stress incontinence -Secondary pulmonary hypertension -Colonic diverticulosis, asymptomatic Disposition: Home Patient Condition at Discharge: Stable Plan - Discharge Summary Discharge Rx Participant: No New Discharge Prescriptions: New Ipratropium-Albuterol Nebulize [Duoneb 0.5 mg-3 mg/3 ml Soln] 3 ml INHALATION TID #90 ml Psyllium Husk 100% [Metamucil Packet] 6 gm PO DAILY #30 packet predniSONE 10 mg PO DAILY #30 tab Continue Simvastatin [Zocor] 20 mg PO HS rOPINIRole HCL [Requip] 3 mg PO TID Aspirin/Dipyridamole [Aggrenox 25MG -200MG] 1 cap PO BID Levothyroxine Sodium [Synthroid] 112 mcg PO DAILY Magnesium Oxide 400 mg PO DAILY fentaNYL 12MCG/HR PATCH [Duragesic 12MCG/HR] 1 patch TRANSDERM Q72H HYDROcodone/APAP 10-325MG [[place] 10-325] 1 tab PO TID HYDROcodone/APAP 10-325MG [[place] 10-325] 1 tab PO HS PRN PRN Reason: Pain Escitalopram [Lexapro] 10 mg PO DAILY Omeprazole 40 mg PO BID Diclofenac Sodium Gel [Voltaren Gel] 2 gm TOPICAL QID PRN tube PRN Reason: Mild Pain Famotidine 20 mg PO BID Calc 1200/D 1000iu 1 tab PO DAILY Budesonide/Formoterol Fumarate [Symbicort 160-4.5 Mcg Inhaler] 1 puff INHALATION RT-TID Furosemide [Lasix] 10 mg PO BID@0900,1600 Melatonin 10 mg PO HS Nitroglycerin Sl Tabs [Nitrostat] 0.4 mg SUBLINGUAL Q5M PRN PRN Reason: Chest Pain Potassium Gluconate 99 mg PO DAILY Pregabalin [Lyrica] 150 mg PO TID Roflumilast [Daliresp] 250 mcg PO DAILY Ondansetron Odt [Zofran ODT] 4 mg PO Q8H PRN PRN Reason: Nausea Discontinued diphenhydrAMINE [Benadryl] 50 mg PO HS Discharge Medication List Simvastatin [Zocor] 20 mg PO HS 11/10/14 [History] Aspirin/Dipyridamole [Aggrenox 25MG -200MG] 1 cap PO BID 01/16/17 [History] rOPINIRole HCL [Requip] 3 mg PO TID 01/16/17 [History] Levothyroxine Sodium [Synthroid] 112 mcg PO DAILY 06/04/17 [History] Magnesium Oxide 400 mg PO DAILY 12/31/17 [History] fentaNYL 12MCG/HR PATCH [Duragesic 12MCG/HR] 1 patch TRANSDERM Q72H 12/31/17 [History] HYDROcodone/APAP 10-325MG [[place] 10-325] 1 tab PO TID 05/06/18 [History] HYDROcodone/APAP 10-325MG [[place] 10-325] 1 tab PO HS PRN 02/25/19 [History] Escitalopram [Lexapro] 10 mg PO DAILY 10/24/19 [History] Omeprazole 40 mg PO BID 10/24/19 [History] Diclofenac Sodium Gel [Voltaren Gel] 2 gm TOPICAL QID PRN tube 10/27/19 [Rx] Famotidine 20 mg PO BID 01/17/20 [History] Budesonide/Formoterol Fumarate [Symbicort 160-4.5 Mcg Inhaler] 1 puff INHALATION RT-TID 01/21/20 [History] Calc 1200/D 1000iu 1 tab PO DAILY 01/21/20 [History] Furosemide [Lasix] 10 mg PO BID@0900,1600 01/21/20 [History] Melatonin 10 mg PO HS 01/21/20 [History] Nitroglycerin Sl Tabs [Nitrostat] 0.4 mg SUBLINGUAL Q5M PRN 01/21/20 [History] Ondansetron Odt [Zofran ODT] 4 mg PO Q8H PRN 01/21/20 [History] Potassium Gluconate 99 mg PO DAILY 01/21/20 [History] Pregabalin [Lyrica] 150 mg PO TID 01/21/20 [History] Roflumilast [Daliresp] 250 mcg PO DAILY 01/21/20 [History] Ipratropium-Albuterol Nebulize [Duoneb 0.5 mg-3 mg/3 ml Soln] 3 ml INHALATION TID #90 ml 01/24/20 [Rx] Psyllium Husk 100% [Metamucil Packet] 6 gm PO DAILY #30 packet 01/24/20 [Rx] predniSONE 10 mg PO DAILY #30 tab 01/24/20 [Rx] Follow up Appointment(s)/Referral(s): Ajay Ulrich DO [Primary Care Provider] - 01/31/20 10:45 am Patient Instructions/Handouts: Albuterol (By breathing), Prednisone (By mouth), Laxative, Bulk-forming (By mouth), COPD (Chronic Obstructive Pulmonary Disease) (DC) Activity/Diet/Wound Care/Special Instructions: Diet as tolerated Activity as tolerated Discharge Disposition: HOME SELF-CARE
== END 2020-01-24 13:30 | disposition home or self-care (01) | DRG 191 ==
LOC: EC 11:03 → 5NMEDONC 13:23
PROVIDERS: ADMIT Hospitalist; ATTEND Hospitalist
DX: J44.1 Chronic obstructive pulmonary disease with (acute) exacerbation (principal); J96.11 Chronic respiratory failure with hypoxia; G25.81 Restless legs syndrome; E78.5 Hyperlipidemia, unspecified; I25.10 Atherosclerotic heart disease of native coronary artery without angina pectoris; M19.90 Unspecified osteoarthritis, unspecified site; Z96.611 Presence of right artificial shoulder joint; Z96.651 Presence of right artificial knee joint; K21.9 Gastro-esophageal reflux disease without esophagitis; F32.9 Major depressive disorder, single episode, unspecified; I11.0 Hypertensive heart disease with heart failure; E89.0 Postprocedural hypothyroidism; G89.4 Chronic pain syndrome; I27.29 Other secondary pulmonary hypertension; I50.9 Heart failure, unspecified; N39.3 Stress incontinence (female) (male); K57.30 Diverticulosis of large intestine without perforation or abscess without bleeding; I34.0 Nonrheumatic mitral (valve) insufficiency; I50.89 Other heart failure; K44.9 Diaphragmatic hernia without obstruction or gangrene; M79.7 Fibromyalgia; Z87.440 Personal history of urinary (tract) infections; Z98.1 Arthrodesis status; Z82.49 Family history of ischemic heart disease and other diseases of the circulatory system; Z80.49 Family history of malignant neoplasm of other genital organs; I25.2 Old myocardial infarction; Z90.49 Acquired absence of other specified parts of digestive tract; Z90.89 Acquired absence of other organs; Z90.710 Acquired absence of both cervix and uterus; Z87.891 Personal history of nicotine dependence; Z98.51 Tubal ligation status; Z86.2 Personal history of diseases of the blood and blood-forming organs and certain disorders involving the immune mechanism; Z98.890 Other specified postprocedural states; Z98.42 Cataract extraction status, left eye; Z98.41 Cataract extraction status, right eye; Z99.81 Dependence on supplemental oxygen; Z87.01 Personal history of pneumonia (recurrent); Z79.890 Hormone replacement therapy; Z79.51 Long term (current) use of inhaled steroids; Z79.899 Other long term (current) drug therapy; Z88.1 Allergy status to other antibiotic agents; Z88.5 Allergy status to narcotic agent; Z88.2 Allergy status to sulfonamides; Z88.8 Allergy status to other drugs, medicaments and biological substances; I69.398 Other sequelae of cerebral infarction
CPT/HCPCS: 36415; 71046; 80053; 81001; 83605; 83735; 83880; 84484; 85025; 85610; 85730; 87040; 87502; 93005; 94640; 94760; 96361; 96374; 96375; 99285

== ENCOUNTER 2020-07-26 09:58 | Observation (INO) | payer MEDICARE ==
[2020-07-26] MEDS ORDERED: ONDANSETRON 4 MG/2 ML VIAL IVP STA ×2 (10:33→15:14)
[2020-07-26] MEDS ORDERED: MORPHINE SULFATE 2 MG/ML SYRINGE IVP STA (10:33)
[2020-07-26] MEDS ORDERED: SODIUM CHLORIDE 0.9% 500 ML 500 ML IV STA (10:33)
[2020-07-26] MEDS ORDERED: FAMOTIDINE 20 MG/2 ML VIAL IV STA (10:35)
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
[2020-07-26 11:35] LABS: Anisocytosis Slight; Basophils % (A) 1 %; Eosinophils % (A) 1 %; HCT 40.4 % (34.0-46.0); HGB 11.8 gm/dL (11.4-16.0); Hypochromasia Marked; Lymphocytes % (A) 15 %; MCH 23.7 pg (25.0-35.0); MCHC 29.3 g/dL (31.0-37.0); MCV 80.7 fL (80.0-100.0); Mean Platelet Volume 7.5; Monocytes # (A) 0.4 k/uL (0-1.0); Monocytes % (A) 6 %; Neutrophils # (A) 4.9 k/uL (1.3-7.7); Neutrophils % (A) 76 %; Platelet Count 139 k/uL (150-450); RDW 16.6 % (11.5-15.5); WBC 6.5 k/uL (3.8-10.6)
[2020-07-26 11:49] LABS: ALT 9 U/L (4-34); AST 19 U/L (14-36); African American GFR (CKD) >90 (>60 ml/min/1.73 sqM); Albumin 3.7 g/dL (3.5-5.0); Alkaline Phosphatase 84 U/L (38-126); Anion Gap 6 mmol/L; Blood Urea Nitrogen 14 mg/dL (7-17); Calcium 8.7 mg/dL (8.4-10.2); Carbon Dioxide 32 mmol/L (22-30); Chloride 105 mmol/L (98-107); Glucose 102 mg/dL (74-99); Magnesium 2.2 mg/dL (1.6-2.3); Non-African American GFR(CKD) 89 (>60 ml/min/1.73 sqM); Potassium 4.2 mmol/L (3.5-5.1); Sodium 143 mmol/L (137-145); Total Bilirubin 0.9 mg/dL (0.2-1.3); Total Protein 6.1 g/dL (6.3-8.2)
[2020-07-26 12:04] LABS: INR 1.1 (<1.2); Partial Thromboplastin Time 23.9 sec (22.0-30.0); Prothrombin Time 11.6 sec (9.0-12.0)
--- NOTE | 2020-07-26 12:32 | XR ---
EXAMINATION TYPE: XR Hip RT and AP Pelvis DATE OF EXAM: 07/26/2020 COMPARISON: CT abdomen pelvis 07/19/2019 HISTORY: Right hip pain status post fall TECHNIQUE: A single AP view of the pelvis is obtained. Two views of the right hip are obtained. FINDINGS: There is redemonstrated right proximal femoral and intertrochanteric femoral head and neck surgical fixation hardware. No evidence of hardware fracture or significant loosening. There is no a cute fracture/dislocation evident in the pelvis. The hip and sacroiliac joints appear grossly symmet kadeem with degenerative change. Degenerative changes of the lumbar spine. Decreased osseous mineralizat ion. The overlying soft tissue appears unremarkable. IMPRESSION: Postsurgical fixation changes of the right femur with no evidence of hardware failure. T here is no acute fracture or dislocation in the pelvis or right hip.
--- NOTE | 2020-07-26 12:35 | XR ---
EXAMINATION TYPE: XR chest 2V DATE OF EXAM: 07/26/2020 CLINICAL HISTORY: Weakness. Pain after fall. TECHNIQUE: Frontal and lateral views of the chest are obtained. COMPARISON: 01/21/2020 chest regressed FINDINGS: Incompletely visualized right shoulder arthroplasty. Cardiomegaly. Mediastinal silhouette normal. Pulmonary vasculature normal. Chronic interstitial coarsening redemonstrated. There is no foc al air space opacity, pleural effusion, or pneumothorax seen. Osseous demineralization. No evidence o f displaced rib fracture. IMPRESSION: No acute cardiopulmonary process.
[2020-07-26 13:44] LABS: Appearance,Urine Cloudy (Clear); Bilirubin,Urine Negative (Negative); Blood,Urine Negative (Negative); Color,Urine Yellow; Glucose,Urine (UA) Negative (Negative); Ketones,Urine 2+ (Negative); Leukocyte Esterase,Urine Negative (Negative); Mucus,Urine Many /hpf; Nitrite,Urine Negative (Negative); PH, Urine 6.5 (5.0-8.0); Protein,Urine Trace (Negative); RBC,Urine 1 /hpf (0-5); Specific Gravity,Urine 1.026 (1.001-1.035); Squamous Epithelial Cell,Urine 1 /hpf (0-4); WBC,Urine 2 /hpf (0-5)
--- NOTE | 2020-07-26 14:34 | CT ---
EXAMINATION TYPE: CT abdomen pelvis w con DATE OF EXAM: 07/26/2020 COMPARISON: 07/19/2019 HISTORY: Abd pain CT DLP: 1281.2 mGycm Automated exposure control for dose reduction was used. CONTRAST: CT scan of the abdomen pelvis is performed with IV Contrast, patient injected with 100 mL of Isovue 3 00. FINDINGS- LUNG BASES-the heart is enlarged. Subsegmental changes involving the lung bases suggestive of atelect asis. Hiatal hernia seen with postsurgical changes involving the stomach.. LIVER/GB-there is low attenuation involving the liver suggestive of fatty infiltration. Mild central biliary dilation likely secondary to postcholecystectomy changes.. PANCREAS-there is mild prominence of the pancreatic head. MRI is recommended to exclude mass. SPLEEN- No gross abnormality is seen. ADRENALS-stable bilateral indeterminate adrenal nodules. KIDNEYS/BLADDER-no hydronephrosis or nephrolithiasis. Bilateral renal cysts are noted. There are 2 pu nctate 2 mm calculi involving the right kidney with no obstruction.. BOWEL-bowel gas pattern nonspecific. Changes of diverticulosis of the colon. LYMPH NODES- No greater than 1cm abdominal or pelvic lymph nodes areappreciated. OSSEOUS STRUCTURES-postsurgical change involving the right hip. Scoliosis and severe degenerative jarvis nge of the spine.. OTHER- atherosclerotic change of the aorta. No evidence of aneurysm. Postsurgical change involving t he anterior abdominal wall. IMPRESSION- 1. Postsurgical changes are seen. There are stable bilateral adrenal masses unchanged from the prior exam. 2. Hepatic steatosis. 3. There is an enhancing splenic lesion . Measures 1.7 cm and appears new from the prior exam. Recomm end follow-up MRI. 4. There is fullness to the pancreatic head and uncinate process. Recommend MRI to exclude pancreatic mass. 5. Diverticulosis with no CT evidence of diverticulitis. #6 nonobstructing right renal calculi
[2020-07-26] MEDS ORDERED: MORPHINE SULFATE 4 MG/ML SYRINGE IVP STA (15:14)
[2020-07-26] MEDS ORDERED: MORPHINE SULFATE 4 MG/ML SYRINGE IV PRN ×2 (15:15→21:35)
[2020-07-26] MEDS ORDERED: NALOXONE 0.4 MG/ML 1 ML VIAL IV PRN (15:15)
[2020-07-26] MEDS ORDERED: ONDANSETRON 4 MG/2 ML VIAL IVP PRN ×2 (15:15→20:29)
[2020-07-26] MEDS: SODIUM CHLORIDE 0.9% 1,000 ML IV SCH ×2 (15:34→20:31)
[2020-07-26] MEDS: PANTOPRAZOLE 40 MG TABLET PO SCH (18:08)
[2020-07-26] MEDS ORDERED: HYDROcodone/APAP 10-325MG 1 EACH TAB PO PRN (20:51)
[2020-07-26] MEDS: HYDROcodone/APAP 10-325MG 1 EACH TAB PO SCH (21:41)
[2020-07-26] MEDS: PREGABALIN 75 MG CAP PO SCH (21:41)
[2020-07-26] MEDS: FAMOTIDINE 20 MG TAB PO SCH (21:41)
[2020-07-26] MEDS: DIPYRIDAMOLE-ASPIRIN 200-25 MG 1 EACH CPMP.12HR PO SCH (21:42)
[2020-07-26] MEDS ORDERED: MELATONIN 3 MG TABLET PO SCH (21:45)
[2020-07-27 06:14] VITALS: RESP 22
[2020-07-27] MEDS: NITROGLYCERIN SL TABS 0.4 MG TAB SUBLINGUAL PRN ×2 (06:14→06:21)
[2020-07-27 06:23] VITALS: BP 96/58; PULSE 86
[2020-07-27 06:25] VITALS: TEMP 98.1
[2020-07-27] MEDS ORDERED: LEVOTHYROXINE 112 MCG TAB PO SCH (06:30)
[2020-07-27] MEDS: PANTOPRAZOLE 40 MG TABLET PO SCH ×2 (08:03→15:49)
[2020-07-27] MEDS: FAMOTIDINE 20 MG TAB PO SCH (08:03)
[2020-07-27] MEDS: PREGABALIN 75 MG CAP PO SCH ×2 (08:03→15:50)
[2020-07-27] MEDS: DIPYRIDAMOLE-ASPIRIN 200-25 MG 1 EACH CPMP.12HR PO SCH (08:05)
[2020-07-27] MEDS: HYDROcodone/APAP 10-325MG 1 EACH TAB PO SCH ×2 (08:06→15:49)
[2020-07-27] MEDS ORDERED: NON FORMULARY DRUG (Potassium Gluconate [Potassium Gluconate] 99 MG) PO SCH (09:00)
[2020-07-27] MEDS ORDERED: DULoxetine HCL 30 MG CAPSULE.DR PO SCH (09:00)
[2020-07-27] MEDS ORDERED: ONDANSETRON ODT 4 MG TAB PO PRN (09:29)
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
--- NOTE | 2020-07-27 12:46 | MR ---
EXAMINATION TYPE: MR pancreas wo/w con DATE OF EXAM: 07/27/2020 COMPARISON: CT dated 07/26/2020 HISTORY: Abdominal pain, weakness, pancreatic mass CONTRAST: Standard multiplanar, multisequence MRI departmental protocol utilizing 6.5 mL intravenous Gadavist g adolinium contrast. FINDINGS: Is evidence of hepatic steatosis. No hepatic lesions are seen. Cholecystectomy changes identified. Ex trahepatic biliary ductal prominence measuring 1.1 cm. No evidence of pancreatic mass. Pancreatic duct is of normal caliber. No pancreatic inflammation. There is an enhancing lesion within the periphery of the spleen near its lower pole measuring 2.2 cm which is nonspecific and may reflect hemangioma. Lesion of other etiology not excluded. Right adrenal nodule measuring 1.9 cm is likely secondary to adenoma. Left adrenal nodule measuring 1 .3 cm. Sliding-type hiatal hernia noted. Bilateral renal cysts noted the largest within the lower pole measures 4.4 cm. No solid renal lesions . Atheromatous change of the abdominal aorta. IMPRESSION: 1.There is an enhancing lesion within the periphery of the spleen near its lower pole measuring 2.2 c m which is nonspecific and may reflect hemangioma. Lesion of other etiology not excluded. 2. No evidence for pancreatic mass.
[2020-07-27] MEDS ORDERED: DICYCLOMINE 10 MG CAP PO PRN (14:37)
[2020-07-27] MEDS ORDERED: ATORVASTATIN 10 MG TAB PO SCH (21:00)
[2020-07-27] MEDS ORDERED: FAMOTIDINE 20 MG TAB PO SCH (21:00)
--- NOTE | 2020-07-28 08:49 | P.DS ---
Providers Date of admission: 07/26/20 15:11 Expected date of discharge: 07/27/20 Attending physician: Adele Murray Consults: 07/26/20 15:16 Consult Physician Routine Consulting Provider: Gavino Leonard Reason/Comments: Abd pain; Pancreatic/splenic lesion Do you want consulting provider notified?: Yes Primary care physician: Ajay Serg [facility] Course: Final diagnosis -Epigastric abdominal pain and burning sensation: Most probably peptic ulcer disease -Incidental finding of splenic mass and a pancreatic mass CA-19-9 was done which was within normal limits so possibly of pancreatic cancer is low -Coronary artery disease -COPD and chronic hypercapnic respiratory failure without any acute exacerbation at this time -CVA in the past -Gastroesophageal reflux disease -Hyperlipidemia -Hypertension -Hypothyroidism Discharge disposition Patient is being discharged in a stable condition with guarded prognosis to home. Patient will follow-up with Dr. Ulrich in the outpatient setting upon discharge. Patient also instructed to follow-up with GI Dr. Leonard along with oncology in the outpatient setting. Patient also instructed to continue Proton ix daily. Total time taken is greater than 35 minutes. History of present illness This is a 74-year-old female who was recently admitted with epigastric burning sensation along with severe pain with nausea and vomiting and was being closely monitored. Patient states the pain and discomfort has been progressing over the last few days not allowing her to eat or drink anything. Patient underwent a CT in the ER of the abdomen showing an incidental finding of a lesion or mass in the splenic area with pancreatic head lesion and patient underwent an MRI showing a hemangioma. CA 19 was negative. Patient had a brief episode of chest pain that was mostly epigastric and burning sensation and an EKG and troponins were done and were negative. Patient states that her abdominal discomfort has resolved and is requesting a Pepsi and a regular diet. GI was consulted and patient will be following up with them in the outpatient setting. A referral for oncology was also placed and patient is to follow-up in the outpatient setting. Patient is eager to go home and would like to go home today. Currently no reports of chest pain, shortness of breath, or palpitations. Patient is afebrile. No reports of nausea or vomiting and patient is tolerating diet. Patient will be discharged home today. On exam vital signs are stable. Temp is 98.1F, pulse is 86, respirations are 22, blood pressure is 112/72, oxygen saturation is 99% on 2 L via nasal cannula. Cardio S1, S2 are muffled. Respiratory system shows diminished breath sounds at the bases with no wheezing or rhonchi noted. Abdomen is soft and nontender. Nervous system shows no focal deficits. Please refer to medication reconciliation sheet for a list of medications. Patient Condition at Discharge: Good Plan - Discharge Summary Discharge Rx Participant: No New Discharge Prescriptions: New Pantoprazole [Protonix] 40 mg PO DAILY 30 Days #30 tablet.dr Continue Simvastatin [Zocor] 20 mg PO HS rOPINIRole HCL [Requip] 3 mg PO TID Aspirin/Dipyridamole [Aggrenox 25MG -200MG] 1 cap PO BID Levothyroxine Sodium [Synthroid] 112 mcg PO DAILY fentaNYL 12MCG/HR PATCH [Duragesic 12MCG/HR] 1 patch TRANSDERM Q72H HYDROcodone/APAP 10-325MG [[place] 10-325] 1 tab PO TID HYDROcodone/APAP 10-325MG [[place] 10-325] 1 tab PO HS PRN PRN Reason: Pain Calc 1200/D 1000iu 1 tab PO DAILY Budesonide/Formoterol Fumarate [Symbicort 160-4.5 Mcg Inhaler] 1 puff INHALATION RT-TID Nitroglycerin Sl Tabs [Nitrostat] 0.4 mg SUBLINGUAL Q5M PRN PRN Reason: Chest Pain Potassium Gluconate 99 mg PO DAILY Pregabalin [Lyrica] 150 mg PO TID Ondansetron Odt [Zofran ODT] 4 mg PO Q8H PRN PRN Reason: Nausea Lubiprostone [Amitiza] 24 mcg PO DAILY Famotidine [Pepcid] 20 mg PO BID DULoxetine HCL [Cymbalta] 30 mg PO DAILY Discharge Medication List Simvastatin [Zocor] 20 mg PO HS 11/10/14 [History] Aspirin/Dipyridamole [Aggrenox 25MG -200MG] 1 cap PO BID 01/16/17 [History] rOPINIRole HCL [Requip] 3 mg PO TID 01/16/17 [History] Levothyroxine Sodium [Synthroid] 112 mcg PO DAILY 06/04/17 [History] fentaNYL 12MCG/HR PATCH [Duragesic 12MCG/HR] 1 patch TRANSDERM Q72H 12/31/17 [History] HYDROcodone/APAP 10-325MG [[place] 10-325] 1 tab PO TID 05/06/18 [History] HYDROcodone/APAP 10-325MG [[place] 10-325] 1 tab PO HS PRN 02/25/19 [History] Budesonide/Formoterol Fumarate [Symbicort 160-4.5 Mcg Inhaler] 1 puff INHALATION RT-TID 01/21/20 [History] Calc 1200/D 1000iu 1 tab PO DAILY 01/21/20 [History] Nitroglycerin Sl Tabs [Nitrostat] 0.4 mg SUBLINGUAL Q5M PRN 01/21/20 [History] Ondansetron Odt [Zofran ODT] 4 mg PO Q8H PRN 01/21/20 [History] Potassium Gluconate 99 mg PO DAILY 01/21/20 [History] Pregabalin [Lyrica] 150 mg PO TID 01/21/20 [History] DULoxetine HCL [Cymbalta] 30 mg PO DAILY 07/26/20 [History] Famotidine [Pepcid] 20 mg PO BID 07/26/20 [History] Lubiprostone [Amitiza] 24 mcg PO DAILY 07/26/20 [History] Pantoprazole [Protonix] 40 mg PO DAILY 30 Days #30 tablet. 07/27/20 [Rx] Follow up Appointment(s)/Referral(s): Ezequiel Israel MD [STAFF PHYSICIAN] - 2 Weeks (DOCTOR'S OFFICE WILL CALL YOU WITH DATE/TIME FOR YOUR APPOINTMENT.) Ajay Ulrich DO [Primary Care Provider] - 1-2 days (PLEASE CALL TO MAKE YOUR APPOINTMENT, OFFICE CLOSED FOR THE DAY AT THIS TIME.) Gavino Leonard MD [STAFF PHYSICIAN] - 2 Weeks (PLEASE CALL FOR APPOINTMENT, OFFICE CLOSED FOR THE DAY AT THIS TIME.) Patient Instructions/Handouts: Heart Failure (DC), Peptic Ulcer (DC) Activity/Diet/Wound Care/Special Instructions: Activity Limited until follow-up Follow-up with primary care provider upon discharge Follow-up with GI in the outpatient setting Follow-up with oncology in the outpatient setting Continue current diet Continue with Protonix daily Discharge Disposition: HOME WITH HOME HEALTH SERVICES
[2020-07-28] MEDS ORDERED: NON FORMULARY DRUG (Lubiprostone [Amitiza] 24 MCG Capsule) PO SCH (09:00)
== END 2020-07-27 17:47 | disposition home health service (06) ==
LOC: EC 09:58 → 6NMEDSUR 15:11
PROVIDERS: ADMIT Internal Medicine; ATTEND Internal Medicine
DX: D73.9 Disease of spleen, unspecified (principal); K86.9 Disease of pancreas, unspecified; R10.13 Epigastric pain; M25.551 Pain in right hip; W08.XXXA Fall from other furniture, initial encounter; R53.1 Weakness; I25.10 Atherosclerotic heart disease of native coronary artery without angina pectoris; I11.0 Hypertensive heart disease with heart failure; I50.9 Heart failure, unspecified; J96.12 Chronic respiratory failure with hypercapnia; E78.5 Hyperlipidemia, unspecified; E03.9 Hypothyroidism, unspecified; K21.9 Gastro-esophageal reflux disease without esophagitis; J44.9 Chronic obstructive pulmonary disease, unspecified; M79.7 Fibromyalgia; I25.2 Old myocardial infarction; M19.90 Unspecified osteoarthritis, unspecified site; Z87.01 Personal history of pneumonia (recurrent); Z99.81 Dependence on supplemental oxygen; I69.392 Facial weakness following cerebral infarction; I69.398 Other sequelae of cerebral infarction; I34.0 Nonrheumatic mitral (valve) insufficiency; G89.29 Other chronic pain; M54.2 Cervicalgia; M54.9 Dorsalgia, unspecified; G25.81 Restless legs syndrome; K44.9 Diaphragmatic hernia without obstruction or gangrene; I67.1 Cerebral aneurysm, nonruptured; Z90.49 Acquired absence of other specified parts of digestive tract; Z96.611 Presence of right artificial shoulder joint; Z96.651 Presence of right artificial knee joint; Z98.42 Cataract extraction status, left eye; Z98.41 Cataract extraction status, right eye; Z98.1 Arthrodesis status; Z87.440 Personal history of urinary (tract) infections; R32 Unspecified urinary incontinence; F40.240 Claustrophobia; F32.9 Major depressive disorder, single episode, unspecified; Z82.3 Family history of stroke; Z82.49 Family history of ischemic heart disease and other diseases of the circulatory system; Z80.49 Family history of malignant neoplasm of other genital organs; Z79.82 Long term (current) use of aspirin; Z79.890 Hormone replacement therapy; Z79.891 Long term (current) use of opiate analgesic; Z79.51 Long term (current) use of inhaled steroids; Z79.899 Other long term (current) drug therapy; Z88.1 Allergy status to other antibiotic agents; Z88.5 Allergy status to narcotic agent; Z88.2 Allergy status to sulfonamides; Z88.8 Allergy status to other drugs, medicaments and biological substances
CPT/HCPCS: 96376 ×3; 96361 ×3; 96374; 96375; 99285; 36415; 93005 ×2; 97162; 97166; 80053; 83605; 83690; 83735; 84484; 85025; 85610; 85730; 81001; 86301; 73502; 71046; 74177; 74183; G0378 ×2; J2270 ×3; J2405; A9585; Q9967

== ENCOUNTER → 2020-09-12 | Outpatient (CLI) | payer MEDICARE ==
--- NOTE | 2020-09-14 05:36 | MR ---
EXAMINATION TYPE: MR abdomen wo/w con DATE OF EXAM: 09/12/2020 COMPARISON: 07/27/2020 HISTORY: Pancreatic mass CONTRAST: Standard multiplanar, multisequence MRI departmental protocol utilizing 7.5 mL intravenous Gadavist g adolinium contrast. Liver shows no evidence of a solid mass. There is 5 mm cyst in the posterior and anterior right lobe of the liver. The bile ducts are not dilated. Gallbladder appears absent. There is mild ectasia of th e common bile duct that measures 14 mm. Spleen is intact. There is good visualization of the pancreas which has normal size and contour. Pancreatic duct appears normal. I see no evidence of pancreatic m ass. Spleen has normal size. There is 2 cm rounded high signal lesion in the posterior aspect of the spleen on the T2 images. This enhances in a delayed fashion with contrast and could be a hemangioma. There is no ascites. There is no evidence of pleural effusion. There is gastric bariatric surgery. There is 2 cm mass on the left adrenal gland unchanged compared to CT scan of December 19, 2016 and th erefore benign. Kidneys show no hydronephrosis. There are bilateral multiple renal cortical cysts patel t measure up to 4 cm. There is no evidence of solid renal mass. There is no sign of retroperitoneal a denopathy. IMPRESSION: No evidence of pancreatic mass. Enhancing posterior splenic mass likely hemangioma and unchanged comp ared to recent MR scan.
== END | disposition home or self-care (01) ==
LOC: RADMRIMAIN 15:01
PROVIDERS: ATTEND Family Medicine
DX: R16.1 Splenomegaly, not elsewhere classified (principal); K86.89 Other specified diseases of pancreas
CPT/HCPCS: 74183; A9585

== ENCOUNTER 2021-05-01 11:24 | Observation (INO) | payer MEDICARE ==
[2021-05-01] MEDS ORDERED: ASPIRIN 81 MG PO STA (12:06)
[2021-05-01] MEDS ORDERED: NITROGLYCERIN OINT 1 INCH/GM PACKET TOPICAL STA (12:06)
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
[2021-05-01 12:36] LABS: Basophils % (A) 0 %; Eosinophils % (A) 0 %; HCT 41.4 % (34.0-46.0); HGB 12.9 gm/dL (11.4-16.0); Lymphocytes # (A) 0.7 k/uL (1.0-4.8); Lymphocytes % (A) 12 %; MCH 28.5 pg (25.0-35.0); MCHC 31.2 g/dL (31.0-37.0); MCV 91.3 fL (80.0-100.0); Mean Platelet Volume 9.6; Monocytes # (A) 0.2 k/uL (0-1.0); Monocytes % (A) 4 %; Neutrophils # (A) 4.9 k/uL (1.3-7.7); Neutrophils % (A) 83 %; Platelet Count 113 k/uL (150-450); RBC 4.53 m/uL (3.80-5.40); RDW 15.5 % (11.5-15.5); WBC 5.9 k/uL (3.8-10.6)
[2021-05-01 12:53] LABS: ALT 12 U/L (4-34); AST 24 U/L (14-36); African American GFR (CKD) >90 (>60 ml/min/1.73 sqM); Albumin 3.9 g/dL (3.5-5.0); Alkaline Phosphatase 115 U/L (38-126); Anion Gap 6 mmol/L; Blood Urea Nitrogen 8 mg/dL (7-17); Calcium 8.9 mg/dL (8.4-10.2); Carbon Dioxide 39 mmol/L (22-30); Chloride 96 mmol/L (98-107); Glucose 119 mg/dL (74-99); Magnesium 1.8 mg/dL (1.6-2.3); Non-African American GFR(CKD) 89 (>60 ml/min/1.73 sqM); Potassium 4.1 mmol/L (3.5-5.1); Sodium 141 mmol/L (137-145); Total Bilirubin 0.7 mg/dL (0.2-1.3); Total Protein 6.5 g/dL (6.3-8.2)
--- NOTE | 2021-05-01 12:53 | XR ---
EXAMINATION TYPE: XR chest 2V DATE OF EXAM: 05/01/2021 COMPARISON: 10/04/2020 TECHNIQUE: PA and lateral views submitted. HISTORY: Chest pain FINDINGS: Surgical change right shoulder. Diffuse interstitial pattern with bilateral lower lobe infiltrate and small effusion. No pneumothorax. Heart size prominent. IMPRESSION: 1. Diffuse interstitial pattern with bilateral infiltrate and small effusion. Correlate for CHF other james consider pneumonia.
[2021-05-01 13:02] LABS: Partial Thromboplastin Time 25.1 sec (22.0-30.0); Prothrombin Time 10.9 sec (9.0-12.0)
[2021-05-01 13:08] LABS: D-Dimer 0.61 mg/L FEU (<0.60)
[2021-05-01] MEDS ORDERED: ASPIRIN 325 MG TAB PO STA (14:26)
[2021-05-01] MEDS ORDERED: FUROSEMIDE 10 MG/ML 4 ML VIAL IV SCH (14:30)
[2021-05-01] MEDS ORDERED: DOCUSATE 100 MG CAP PO PRN (15:34)
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
[2021-05-01] MEDS: PREGABALIN 75 MG CAP PO SCH ×2 (19:12→20:31)
[2021-05-01] MEDS: NITROGLYCERIN OINT 1 INCH/GM PACKET TOPICAL SCH ×2 (19:14→20:32)
[2021-05-01] MEDS: ATORVASTATIN 10 MG TAB PO SCH (20:31)
[2021-05-01] MEDS: HYDROcodone/APAP 10-325MG 1 EACH TAB PO SCH (20:31)
[2021-05-02] MEDS: HYDROcodone/APAP 10-325MG 1 EACH TAB PO SCH (00:38)
[2021-05-02] MEDS: HYDROcodone/APAP 10-325MG 1 EACH TAB PO PRN ×3 (03:58→20:33)
[2021-05-02] MEDS: LEVOTHYROXINE 112 MCG TAB PO SCH (05:16)
[2021-05-02] MEDS: IPRATROPIUM-ALBUTEROL 3 ML NEB INHALATION PRN ×3 (07:10→15:14)
[2021-05-02] MEDS ORDERED: FUROSEMIDE 10 MG/ML 4 ML VIAL IV SCH (08:00)
[2021-05-02] MEDS: ASPIRIN 81 MG PO SCH (08:51)
[2021-05-02] MEDS: ISOSORBIDE MONONITRATE ER 30 MG TAB.ER.24H PO SCH (08:51)
[2021-05-02] MEDS: PREGABALIN 75 MG CAP PO SCH ×3 (08:52→20:23)
[2021-05-02] MEDS: PANTOPRAZOLE 40 MG TABLET PO SCH (08:52)
[2021-05-02] MEDS: FUROSEMIDE 20 MG TAB PO SCH ×2 (08:53→15:40)
[2021-05-02] MEDS ORDERED: ASPIRIN 325 MG TAB PO SCH (09:00)
--- NOTE | 2021-05-02 09:21 | CONS ---
CONSULTATION ATTENDING PHYSICIAN: Dr. Ulrich. HISTORY OF PRESENT ILLNESS: Mrs. Scanlon is a 75-year-old female who used to follow with Dr. Vasquez and follows with Dr. Faustin for chronic obstructive lung disease, on home oxygen, who presented with symptoms of chest discomfort. The discomfort occurred at rest and has been lasting for multiple hours and worse with deep breathing and coughing. She has chronic dyspnea on exertion, occasional peripheral edema. No clear PND. No orthopnea. She feels lightheaded occasionally but had no palpitation. No syncope. No clear PND or orthopnea. She has underwent a cardiac catheterization in 2018 and at that time there was no evidence of significant obstructive disease. Her systolic function was normal. The patient has a cough, nonproductive, but she feels the discomfort is worse when she takes a deep breath, cough, or there is palpation on the chest. She had an echocardiogram performed last time in April of 2018 and at that time she had a normal left ventricular systolic function, mild aortic stenosis and mild mitral stenosis with mild tricuspid and mitral regurgitation. Her coronary risk factors are remarkable for remote history of smoking. She is non-diabetic. She has hyperlipidemia. MEDICATION: Include Colace, DuoNeb, Protonix, Requip, simvastatin 20 mg daily, Lyrica, Duragesic, Benadryl, Synthroid, [place], and Lasix 20 mg twice a day. REVIEW OF SYSTEMS: RESPIRATORY SYSTEM: She has chronic obstructive lung disease with cough and use of home oxygen. Her activity is limited. She follows with Dr. Faustin in that regard. GI SYSTEM: No recent GI bleeding. No peptic ulcer disease. SYSTEM: No dysuria or hematuria. NERVOUS SYSTEM: No history of seizure. She has a history of TIA. PHYSICAL EXAMINATION: GENERAL: She is a 75-year-old female, alert, oriented, no apparent distress. Appears older than stated age. VITAL SIGNS: Blood pressure running in the low 100s with a heart rate in the 80s. HEAD: Normocephalic. Eyes sclerae anicteric. NECK: Good carotid upstroke. No bruit. No jugular venous distention. LUNGS: With decreased air exchange. No wheezes. HEART: Regular rate and rhythm S1, S2. No S3 with systolic murmur at the base, ejection type, no diastolic murmur, no rub. ABDOMEN: Soft and nontender. Positive bowel sounds. No organomegaly. EXTREMITIES: No edema. Intact pulses. LAB DATA: Lab data revealed troponin less than 0.012. NT proBNP of 1600. BUN and creatinine of 8 and 0.63. Hemoglobin 12.9, D-dimer of 0.61. Her EKG revealed a sinus mechanism, normal axis and intervals. No acute changes. Her chest x-ray revealed bilateral diffuse infiltrate. IMPRESSION: 1. Symptoms of chest discomfort, atypical for ischemic heart disease, probably noncardiac in etiology, appears to be musculoskeletal in etiology. 2. Chronic obstructive lung disease. 3. Chronic dyspnea on exertion. No clear evidence to suggest congestive heart failure by physical examination. 4. History of hyperlipidemia. 5. History of arthritis. RECOMMENDATION: From the cardiac standpoint, I see no evidence to suggest active ischemic heart disease. I will add to her regimen oral nitrate at this point. I would recommend conservative treatment in view of her lung status. She will have an echocardiogram with Doppler. If there is no significant changes, then I believe that we should be able to continue on the present therapy and follow up as an outpatient. Thank you for this consult. We will follow with you. MMODL / IJN: [id number] /
[2021-05-02 12:53] VITALS: BMI 25.7
[2021-05-02 13:13] LABS: African American GFR (CKD) 104.1 (60.0-200.0); Anion Gap 8.8 mmol/L (4.00-12.00); BUN/Creat Ratio 16.67 Ratio (12.00-20.00); Calcium 8.3 mg/dL (8.7-10.3); Carbon Dioxide 37.2 mmol/L (21.6-31.8); Non-African American GFR(CKD) 89.8 (60.0-200.0); Potassium 3.7 mmol/L (3.5-5.5)
--- NOTE | 2021-05-02 13:56 | ECHOF ---
Referral Reason:Heart Failure MEASUREMENTS -------- HEIGHT: 162.6 cm WEIGHT: 68.0 kg BP: RVIDd: 2.7 cm (< 3.3) IVSd: 0.9 cm (0.6 - 1.1) LVIDd: 3.9 cm (3.9 - 5.3) LVPWd: 1.4 cm (0.6 - 1.1) IVSs: 1.5 cm LVIDs: 2.7 cm LVPWs: 1.1 cm LA Diam: 4.2 cm (2.7 - 3.8) LAESV Index (A-L): 40.79 ml/m Ao Diam: 2.4 cm (2.0 - 3.7) AV Cusp: 1.5 cm (1.5 - 2.6) LA Diam: 5.1 cm (2.7 - 3.8) MV EXCURSION: 9.024 mm (> 18.000) MV EF SLOPE: 36 mm/s (70 - 150) EPSS: 0.9 cm MV E Obey: 1.54 m/s MV DecT: 318 ms MV A Boey: 1.63 m/s MV E/A Ratio: 0.95 AV maxP.71 mmHg AV maxP.71 mmHg AV meanP.78 mmHg FINDINGS -------- Sinus rhythm. This was a technically adequate study. LV size, wall thickness and systolic function are normal, with an EF greater than 55%. The left augustin tricular size is normal. The right ventricle is normal in size. LA is severely dilated >40 ml/m2 The right atrial size is normal. There is mild aortic valve sclerosis. Peak/mean gradient across the Aortic Valve is 12.71mmHg / 6.7 8mmHg. Moderate mitral annular calcification present. Moderate mitral regurgitation is present. The pea k and mean MV gradients are 13.17mmHg 6.04mmHg as measured by doppler. [id number] mitral sten osis. The tricuspid valve appears structurally normal. Mild tricuspid regurgitation present. Right vent ricular systolic pressure is normal at < 35 mmHg. There is no pulmonic regurgitation present. The aortic root size is normal. There is no pericardial effusion. CONCLUSIONS -------- 1. LV size, wall thickness and systolic function are normal, with an EF greater than 55%. 2. The left ventricular size is normal. 3. LA is severely dilated >40 ml/m2 4. There is mild aortic valve sclerosis. 5. Peak/mean gradient across the Aortic Valve is 12.71mmHg / 6.78mmHg. 6. Moderate mitral annular calcification present. 7. Moderate mitral regurgitation is present. 8. The peak and mean MV gradients are 13.17mmHg 6.04mmHg as measured by doppler. 9. [id number] mitral stenosis. 10. Mild tricuspid regurgitation present. 11. There is no pericardial effusion. WOOD HACKER: Marnie Alonso RDCS
--- NOTE | 2021-05-02 14:32 | P.PN ---
Subjective Progress Note Date: 05/02/21 This is a pleasant 75-year-old female came in with complaints of chest discomfort which started today patient is a poor historian patient just pain is tightness has been going on for 2 days constant. Patient had a chest x-ray which has diffuse infiltrate. Patient does complaining of cough without any sputum production. Patient is a sick-looking elderly female looks older than her stated age. Patient is also complaining of some shortness of breath does have history of COPD. Patient has a BNP of only 1200. Patient had a normal ejection fraction the past 05/02/2021 Patient is seen in follow-up this morning continues to be dyspneic with exertion and was maintained on IV Lasix and being closely monitored. Patient being transitioned to oral Lasix today and will continue to observe for another 24 hours as she continues to be dyspneic. Patient is having musculoskeletal pain of the chest with a slight cough. Sodium is 143 with a potassium of 3.7 current creatinine is 0.6. Troponins have been negative. Patient underwent 2-D echo showing systolic function normal with an EF rater than 55% with some mild to moderate mitral stenosis, moderate mitral regurgitation along with mild tricus pid regurgitation present. Review of systems: Constitutional: No reports of fatigue, fever, or chills Cardiovascular: reports of chest wall pain, denies palpitations Respiratory: reports of shortness of breath and cough GI: No reports of nausea, vomiting, or diarrhea : No reports of dysuria or retention Neurovascular: No reports of weakness or numbness All medications have been reviewed Objective - Vital Signs Vital signs: Vital Signs Temp 98.1 F 05/02/21 07:00 Pulse 81 05/02/21 07:20 Resp 19 05/02/21 07:00 BP 103/66 05/02/21 08:50 Pulse Ox 98 05/02/21 07:00 Intake & Output 05/01/21 05/02/21 05/02/21 18:59 06:59 18:59 Output Total 1000 Balance -1000 Weight 68.039 kg Output: Urine 1000 Other: Voiding Method Diaper Diaper Incontinent Incontinent External Catheter External Catheter # Voids 2 1 - Exam GENERAL: The patient is alert and oriented x3, not in any acute distress. thin built elderly female HEENT: Pupils are round and equally reacting to light. EOMI. No scleral icterus. No conjunctival pallor. Normocephalic, atraumatic. No pharyngeal erythema. No thyromegaly. CARDIOVASCULAR: S1 and S2 present. No murmurs, rubs, or gallops. PULMONARY: Diminished breath sounds bilaterally with some scattered crackles noted ABDOMEN: Soft, nontender, nondistended, normoactive bowel sounds. No palpable organomegaly. MUSCULOSKELETAL: No joint swelling or deformity. EXTREMITIES: No cyanosis, clubbing, or pedal edema. NEUROLOGICAL: Gross neurological examination did not reveal any focal deficits. SKIN: No rashes. - Labs CBC & Chem 7: 05/01/21 12:23 05/02/21 04:45 Labs: Abnormal Lab Results - Last 24 Hours (Table) 05/01/21 05/01/21 05/01/21 Range/Units 12:23 12:23 12:23 Plt Count 113 L (150-450) k/uL Lymphocytes # 0.7 L (1.0-4.8) k/uL D-Dimer 0.61 H (<0.60) mg/L FEU Chloride 96 L (98-107) mmol/L Carbon Dioxide 39 H (22-30) mmol/L Glucose 119 H (74-99) mg/dL Assessment and Plan Assessment: -chest pain: Ruled out acute coronary syndromes. Patient continues to have some pleuritic chest pain with some mild cough. Cardiology following and patient underwent 2-D echo as mentioned previously with an EF of greater than 55% -Possible congestive heart failure chronic diastolic dysfunction with acute exacerbation patient was started on IV Lasix and will transition to oral Lasix. -coronary artery disease -Gastroesophageal reflux disease -COPD without any acute exacerbation patient was a former smoker. -Hypothyroidism -History of rheumatoid arthritis -history of CVA/TIA -myocardial infarction history in the past -Restless leg syndrome -Severe multi-joint primary osteoarthritis Plan: Patient underwent 2-D echo showing LV function normal with an EF of greater than 55% and being followed by cardiology. Patient was continued on IV Lasix and will transition to oral Lasix and monitor for another 24 hours as she continues to be dyspneic with minimal exertion along with occasional cough. Patient is afebrile and labs within normal limits. Increase activity as tolerated. Possible discharge in 24 hours.
[2021-05-02] MEDS: ATORVASTATIN 10 MG TAB PO SCH (20:22)
[2021-05-03] MEDS: HYDROcodone/APAP 10-325MG 1 EACH TAB PO PRN ×2 (01:12→13:08)
[2021-05-03] MEDS: LEVOTHYROXINE 112 MCG TAB PO SCH (05:32)
[2021-05-03 08:19] VITALS: BP 150/74; RESP 16; TEMP 97.7
[2021-05-03] MEDS: IPRATROPIUM-ALBUTEROL 3 ML NEB INHALATION PRN ×2 (08:24→11:22)
[2021-05-03] MEDS: ISOSORBIDE MONONITRATE ER 30 MG TAB.ER.24H PO SCH (09:20)
[2021-05-03] MEDS: FUROSEMIDE 20 MG TAB PO SCH (09:20)
[2021-05-03] MEDS: PANTOPRAZOLE 40 MG TABLET PO SCH (09:20)
[2021-05-03] MEDS: PREGABALIN 75 MG CAP PO SCH (09:20)
[2021-05-03] MEDS: ASPIRIN 81 MG PO SCH (09:20)
--- NOTE | 2021-05-03 11:20 | P.PN ---
Subjective Progress Note Date: 05/03/21 HISTORY OF PRESENT ILLNESS: Patient examined this morning to bedside. Patient denies any further episodes of chest discomfort. She reports mild shortness of breath which she states is her baseline secondary to her COPD. Echocardiogram completed revealed ejection fraction 55%, moderate mitral regurgitation, [id number] mitral stenosis, and mild tricuspid regurgitation. Vital signs are stable. PHYSICAL EXAM: VITAL SIGNS: Reviewed. GENERAL: Well-developed in no acute distress. NECK: Supple. No JVD or thyromegaly LUNGS: Respirations even and unlabored. Lungs diminished bilaterally. HEART: Regular rate and rhythm. S1 and S2 heard. Systolic murmur noted. EXTREMITIES: Normal range of motion. No clubbing or cyanosis. Peripheral pulses intact. No lower extremity edema ASSESSMENT: Chest pain COPD Chronic dyspnea on exertion Hyperlipidemia Arthritis PLAN: Continue current cardiac medications Patient is stable for discharge from a cardiac standpoint We will sign off. Please reconsult if needed Nurse practitioner note has been reviewed by physician. Signing provider agrees with the documented findings, assessment, and plan of care. Objective - Vital Signs Vital signs: Vital Signs Temp 97.7 F 05/03/21 07:00 Pulse 72 05/03/21 08:35 Resp 16 05/03/21 08:00 BP 150/74 05/03/21 07:00 Pulse Ox 96 05/03/21 01:05 Intake & Output 05/02/21 05/03/21 05/03/21 18:59 06:59 18:59 Intake Total 100 Output Total 250 150 Balance -250 -150 100 Weight 68.039 kg Intake: Oral 100 Output: Urine 250 150 Other: Voiding Method Diaper Diaper Diaper Incontinent Incontinent Incontinent External Catheter External Catheter External Catheter # Voids 1 1 - Labs CBC & Chem 7: 05/01/21 12:23 05/02/21 04:45 Labs: Abnormal Lab Results - Last 24 Hours (Table) 05/02/21 Range/Units 04:45 Carbon Dioxide 37.2 H (21.6-31.8) mmol/L Calcium 8.3 L (8.7-10.3) mg/dL
[2021-05-03 11:33] VITALS: PULSE 72
--- NOTE | 2021-05-04 09:18 | P.DS ---
Providers Date of admission: 05/01/21 15:04 Expected date of discharge: 05/04/21 Attending physician: Adele Murray Consults: 05/01/21 14:26 Consult Physician Routine Consulting Provider: Christy Saez Consult Reason/Comments: cp, dyspnea, eval for chf Do you want consulting provider notified?: Yes Primary care physician: Ajay Ulrich Hospital Course: Final diagnosis -chest pain: Ruled out acute coronary syndromes -Possible congestive heart failure chronic diastolic dysfunction with acute exacerbation with an EF on echo of greater than 55% -coronary artery disease -Gastroesophageal reflux disease -COPD without any acute exacerbation patient was a former smoker. -Hypothyroidism -History of rheumatoid arthritis -history of CVA/TIA -myocardial infarction history in the past -Restless leg syndrome -Severe multi-joint primary osteoarthritis Discharge disposition Patient is being discharged in a stable condition with guarded prognosis to home. Patient will follow-up with Dr. Ulrich in the outpatient setting upon discharge. Patient is to also follow up with pulmonary along with cardiology in 2 weeks. Total time taken is greater than 35 minutes. Hospital course This is a pleasant 75-year-old female came in with complaints of chest discomfort which started today patient is a poor historian patient just pain is tightness has been going on for 2 days constant. Patient had a chest x-ray which has diffuse infiltrate. Patient does complaining of cough without any sputum production. Patient is a sick-looking elderly female looks older than her stated age. Patient is also complaining of some shortness of breath does have history of COPD. Patient has a BNP of only 1200. Patient had a normal ejection fraction the past 05/02/2021 Patient is seen in follow-up this morning continues to be dyspneic with exertion and was maintained on IV Lasix and being closely monitored. Patient being transitioned to oral Lasix today and will continue to observe for another 24 hours as she continues to be dyspneic. Patient is having musculoskeletal pain of the chest with a slight cough. Sodium is 143 with a potassium of 3.7 current creatinine is 0.6. Troponins have been negative. Patient underwent 2-D echo showing systolic function normal with an EF rater than 55% with some mild to moderate mitral stenosis, moderate mitral regurgitation along with mild tricuspid regurgitation present. 05/03/2021 Patient is seen in follow-up stating her shortness of breath is back to baseline and denies any worsening shortness of breath. Patient normally wears 4 L of oxygen in the outpatient setting and has not required any more. Patient states she had an episode of nausea with no vomiting shortly after eating breakfast and contributed it to drinking the chocolate milk as she states she normally does not drink milk as a agitates her belly. Patient was seen and evaluated by cardiology and will follow as needed outpatient. Patient also instructed to follow-up with primary care provider upon discharge along with pulmonary Dr. Faustin her security incident response specialist. She was maintained on oral Lasix and will continue with current dose and Imdur was added. Currently patient denies any chest pain, shortness of breath, or palpitations. Patient is afebrile. No reports of nausea or vomiting and patient is tolerating diet. She will be discharged home today. She may benefit from visiting nurses in the home care setting. Patient was established with them previously. On exam vital signs are stable. Cardio S1, S2 are muffled. Respiratory system shows diminished breath sounds at the bases with no wheezing or rhonchi noted. Abdomen is soft and nontender. Nervous system shows no focal deficits. Please refer to medication reconciliation sheet for a list of medications. Patient Condition at Discharge: Stable Plan - Discharge Summary Discharge Rx Participant: No New Discharge Prescriptions: New Isosorbide Mononitrate ER [Imdur] 30 mg PO DAILY 30 Days #30 tab.er.24h Aspirin 81 mg PO DAILY 30 Days #30 chew Continue Simvastatin [Zocor] 20 mg PO HS rOPINIRole HCL [Requip] 3 mg PO TID Levothyroxine Sodium [Synthroid] 112 mcg PO DAILY fentaNYL 12MCG/HR PATCH [Duragesic 12MCG/HR] 1 patch TRANSDERM Q72H HYDROcodone/APAP 10-325MG [Lutz 10-325] 1 tab PO QID Pregabalin [Lyrica] 150 mg PO TID diphenhydrAMINE [Benadryl] 50 mg PO HS PRN PRN Reason: Insomnia Furosemide [Lasix] 20 mg PO BID Pantoprazole [Protonix] 40 mg PO DAILY Ipratropium-Albuterol Nebulize [Duoneb 0.5 mg-3 mg/3 ml Soln] 3 ml INHALATION RT-QID PRN PRN Reason: Shortness Of Breath Docusate [Colace] 100 - 200 mg PO DAILY PRN PRN Reason: Constipation Discharge Medication List Simvastatin [Zocor] 20 mg PO HS 11/10/14 [History] rOPINIRole HCL [Requip] 3 mg PO TID 01/16/17 [History] Levothyroxine Sodium [Synthroid] 112 mcg PO DAILY 06/04/17 [History] fentaNYL 12MCG/HR PATCH [Duragesic 12MCG/HR] 1 patch TRANSDERM Q72H 12/31/17 [History] HYDROcodone/APAP 10-325MG [Lutz 10-325] 1 tab PO QID 05/06/18 [History] Pregabalin [Lyrica] 150 mg PO TID 01/21/20 [History] diphenhydrAMINE [Benadryl] 50 mg PO HS PRN 12/18/20 [History] Docusate [Colace] 100 - 200 mg PO DAILY PRN 05/01/21 [History] Furosemide [Lasix] 20 mg PO BID 05/01/21 [History] Ipratropium-Albuterol Nebulize [Duoneb 0.5 mg-3 mg/3 ml Soln] 3 ml INHALATION RT-QID PRN 05/01/21 [History] Pantoprazole [Protonix] 40 mg PO DAILY 05/01/21 [History] Aspirin 81 mg PO DAILY 30 Days #30 chew 05/03/21 [Rx] Isosorbide Mononitrate ER [Imdur] 30 mg PO DAILY 30 Days #30 tab.er.24h 05/03/21 [Rx] Follow up Appointment(s)/Referral(s): Issac Villanueva DO [STAFF PHYSICIAN] - 05/17/21 3:00 pm Ajay Ulrich DO [Primary Care Provider] - 1-2 days (Office will call patient with appointment time) Patient Instructions/Handouts: Chest Pain (DC), Heart Healthy Diet (DC) Discharge Disposition: HOME SELF-CARE
== END 2021-05-03 13:55 | disposition home or self-care (01) ==
LOC: EC 11:24 → 1SOBS 15:04 → 6NMEDSUR 16:13
PROVIDERS: ADMIT Internal Medicine; ATTEND Internal Medicine
DX: R07.89 Other chest pain (principal); J44.9 Chronic obstructive pulmonary disease, unspecified; R91.8 Other nonspecific abnormal finding of lung field; I25.10 Atherosclerotic heart disease of native coronary artery without angina pectoris; I08.3 Combined rheumatic disorders of mitral, aortic and tricuspid valves; E78.5 Hyperlipidemia, unspecified; I25.2 Old myocardial infarction; K21.9 Gastro-esophageal reflux disease without esophagitis; M06.9 Rheumatoid arthritis, unspecified; M19.91 Primary osteoarthritis, unspecified site; M79.7 Fibromyalgia; G25.81 Restless legs syndrome; G89.29 Other chronic pain; M54.2 Cervicalgia; M54.9 Dorsalgia, unspecified; K57.90 Diverticulosis of intestine, part unspecified, without perforation or abscess without bleeding; I67.1 Cerebral aneurysm, nonruptured; Z99.81 Dependence on supplemental oxygen; F32.9 Major depressive disorder, single episode, unspecified; I69.992 Facial weakness following unspecified cerebrovascular disease; I69.998 Other sequelae following unspecified cerebrovascular disease; J98.6 Disorders of diaphragm; I95.9 Hypotension, unspecified; F40.240 Claustrophobia; Z20.822 Contact with and (suspected) exposure to COVID-19; Z79.890 Hormone replacement therapy; Z79.891 Long term (current) use of opiate analgesic; Z79.51 Long term (current) use of inhaled steroids; Z79.899 Other long term (current) drug therapy; Z88.1 Allergy status to other antibiotic agents; Z88.5 Allergy status to narcotic agent; Z88.2 Allergy status to sulfonamides; Z88.8 Allergy status to other drugs, medicaments and biological substances; Z86.73 Personal history of transient ischemic attack (TIA), and cerebral infarction without residual deficits; Z87.891 Personal history of nicotine dependence; Z87.01 Personal history of pneumonia (recurrent); Z90.49 Acquired absence of other specified parts of digestive tract; Z90.710 Acquired absence of both cervix and uterus; Z98.51 Tubal ligation status; Z98.1 Arthrodesis status; E89.0 Postprocedural hypothyroidism; Z96.611 Presence of right artificial shoulder joint; Z96.651 Presence of right artificial knee joint; Z87.81 Personal history of (healed) traumatic fracture; Z98.42 Cataract extraction status, left eye; Z98.41 Cataract extraction status, right eye; Z80.49 Family history of malignant neoplasm of other genital organs
CPT/HCPCS: 96374; 99285; 36415; 94640 ×4; 93005; 93306; 85379; 83880; 80053; 80048; 83735; 84484; 85025; 85610; 85730; 87635; 71046; G0378 ×4; J1940

== ENCOUNTER 2021-07-20 09:25 | Day surgery (SDC) | payer MEDICARE ==
[2021-07-18 13:34] VITALS: BMI 30.4
[~2021-07-20 09:25] MED LIST: LACTATED RINGERS 1,000 ML IV SCH
[2021-07-20 09:45] VITALS: TEMP 98.5
[2021-07-20] MEDS ORDERED: LIDOCAINE 1% (10MG/ML) FOR IV START SQ ONE (09:49)
[2021-07-20 09:50] VITALS: RESP 16
[2021-07-20] MEDS ORDERED: LIDOCAINE 1% INJ 10MG/ML (20 ML MDV) ONE (10:08)
[2021-07-20] MEDS ORDERED: PROPOFOL 10 MG/ML 20 ML VIAL IV ONE (10:08)
[2021-07-20 10:51] VITALS: BP 107/70; PULSE 74
--- NOTE | 2021-07-20 10:53 | P.PCN ---
Date of Procedure: 07/20/21 Procedure(s) Performed: BRIEF HISTORY: Patient is a 75-year-old, pleasant, female epigastric pain and long-standing history of GERD of several years duration. Recently was noted to have mild anemia. She is hence scheduled for an upper endoscopy to evaluate further. PROCEDURE PERFORMED: Esophagogastroduodenoscopy with biopsy. PREOPERATIVE DIAGNOSIS: Chronic epigastric pain/long-standing history of GERD. IV sedation per anesthesia. PROCEDURE: After informed consent was obtained, the patient was brought into the endoscopy unit. IV sedation was administered by Anesthesia under continuous monitoring. Initially the Olympus GIF-140 video endoscope was inserted into the mouth. Esophagus intubated without any difficulty. It was gradually advanced into the stomach and duodenum and carefully examined. The bulb and the second part of the duodenum appeared normal. The scope at this time was withdrawn to the stomach, adequately insufflated with air, and upon careful examination, mucosa of the antrum, had gastritis and a 5 mm antral polyp that was biopsied. The cause of the body, cardia and the fundus appeared normal. The scope was then withdrawn into the esophagus. There was a moderate size hiatal hernia measuring 5 cm in size which was partly sliding and partly esophageal in nature. The GE junction was located at 36 cm from the incisors. The GE junction appeared slightly irregular with circumferential erythema consistent with LA grade a reflux esophagitis. The esophagus appeared normal. There were no erosions or ulcerations seen and the patient tolerated the procedure well. IMPRESSION: 1. Moderate size mixed type paraesophageal/hiatal hernia. 2. 5-6 mm gastric antral polyp status post biopsy 3, irregular GE junction with LA grade a reflux esophagitis. RECOMMENDATIONS: The findings of this examination were discussed with the patient as well as a family. She was advised to follow with the biopsy results. She will continue with Protonix 40 mg daily and continue to follow antireflux measures. .
== END 2021-07-20 11:11 | disposition home or self-care (01) ==
LOC: ORWHC2ENDO 09:25
PROVIDERS: ATTEND Internal Medicine Gastroenterology
DX: K31.7 Polyp of stomach and duodenum (principal); K29.00 Acute gastritis without bleeding; K44.9 Diaphragmatic hernia without obstruction or gangrene; G89.29 Other chronic pain; D64.9 Anemia, unspecified; K21.00 Gastro-esophageal reflux disease with esophagitis, without bleeding; I25.10 Atherosclerotic heart disease of native coronary artery without angina pectoris; I11.0 Hypertensive heart disease with heart failure; I50.9 Heart failure, unspecified; E78.5 Hyperlipidemia, unspecified; J44.9 Chronic obstructive pulmonary disease, unspecified; Z99.81 Dependence on supplemental oxygen; I69.392 Facial weakness following cerebral infarction; I69.398 Other sequelae of cerebral infarction; G25.81 Restless legs syndrome; M79.7 Fibromyalgia; K21.9 Gastro-esophageal reflux disease without esophagitis; I25.2 Old myocardial infarction; Z79.82 Long term (current) use of aspirin; Z79.899 Other long term (current) drug therapy; Z79.890 Hormone replacement therapy
CPT/HCPCS: 88305; 43239; J2001; J2704

== ENCOUNTER 2021-09-08 10:53 | Inpatient (IN) | payer MEDICARE ==
[2021-09-08] MEDS ORDERED: ONDANSETRON 4 MG/2 ML VIAL IVP STA ×2 (11:17→14:49)
[2021-09-08] MEDS ORDERED: SODIUM CHLORIDE 0.9% 1,000 ML IV STA (11:17)
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
[2021-09-08 11:42] LABS: Basophils % (A) 0 %; Eosinophils # (A) 0.1 k/uL (0-0.7); Eosinophils % (A) 1 %; HCT 42.3 % (34.0-46.0); HGB 13.7 gm/dL (11.4-16.0); Lymphocytes # (A) 0.9 k/uL (1.0-4.8); Lymphocytes % (A) 13 %; MCH 32.1 pg (25.0-35.0); MCHC 32.3 g/dL (31.0-37.0); MCV 99.6 fL (80.0-100.0); Macrocytosis Slight; Monocytes # (A) 0.3 k/uL (0-1.0); Monocytes % (A) 5 %; Neutrophils # (A) 5.3 k/uL (1.3-7.7); Neutrophils % (A) 79 %; Platelet Count 124 k/uL (150-450); RBC 4.25 m/uL (3.80-5.40); WBC 6.6 k/uL (3.8-10.6)
--- NOTE | 2021-09-08 11:49 | XR ---
EXAMINATION TYPE: XR chest 2V DATE OF EXAM: 09/08/2021 COMPARISON: 05/01/2021 HISTORY: Shortness of breath TECHNIQUE: Frontal and lateral views of the chest are obtained. FINDINGS: Scattered senescent parenchymal changes noted. Hyperinflation compatible with COPD. No evidence for infiltrate. No evidence for atelectasis. Cardiomegaly with pulmonary venous congestion and small left-sided effusion. Correlate for early feat ures of interstitial edema. Mediastinal structures are stable and grossly unremarkable. No evidence for hilar prominence. Degenerative changes dorsal spine. IMPRESSION: 1. Cardiomegaly with pulmonary venous congestion and small left-sided effusion. Correlate for early f eatures of interstitial edema.
[2021-09-08 11:50] LABS: ALT 15 U/L (4-34); AST 23 U/L (14-36); African American GFR (CKD) >90 (>60 ml/min/1.73 sqM); Albumin 3.7 g/dL (3.5-5.0); Alkaline Phosphatase 98 U/L (38-126); Anion Gap 5 mmol/L; Blood Urea Nitrogen 11 mg/dL (7-17); Calcium 8.8 mg/dL (8.4-10.2); Carbon Dioxide 35 mmol/L (22-30); Chloride 100 mmol/L (98-107); Glucose 96 mg/dL (74-99); Non-African American GFR(CKD) 84 (>60 ml/min/1.73 sqM); Potassium 3.8 mmol/L (3.5-5.1); Sodium 140 mmol/L (137-145); Total Bilirubin 1.5 mg/dL (0.2-1.3); Total Protein 6.5 g/dL (6.3-8.2)
[2021-09-08 11:56] LABS: INR 1.2 (<1.2); Partial Thromboplastin Time 24.7 sec (22.0-30.0)
[2021-09-08 12:40] LABS: Appearance,Urine Clear (Clear); Bilirubin,Urine Negative (Negative); Blood,Urine Negative (Negative); Color,Urine Yellow; Glucose,Urine (UA) Negative (Negative); Ketones,Urine 2+ (Negative); Leukocyte Esterase,Urine Negative (Negative); Nitrite,Urine Negative (Negative); PH, Urine 6.5 (5.0-8.0); Protein,Urine Trace (Negative); Specific Gravity,Urine 1.023 (1.001-1.035)
[2021-09-08] MEDS ORDERED: SODIUM CHLORIDE 0.9% 1,000 ML IV ONE (13:58)
[2021-09-08] MEDS ORDERED: HYDROmorphone 0.5 MG/0.5 ML SYRINGE IVP STA (14:49)
--- NOTE | 2021-09-08 16:14 | CT ---
EXAMINATION TYPE: CT abdomen pelvis w con DATE OF EXAM: 09/08/2021 COMPARISON: CT abdomen/pelvis 07/26/2020 HISTORY: Patient poor historian, generalized weakness CT DLP: 1170.7 mGycm. Automated Exposure Control for Dose Reduction was Utilized. TECHNIQUE: Multiple contiguous axial CT images of the abdomen and pelvis were obtained from the lung bases through the pubic symphysis with IV Contrast, patient injected with 100 mL of Isovue 300. 2-D s agittal and coronal reformatted images were obtained. FINDINGS: Bibasilar atelectasis and/or scarring. Liver surface diffuse decreased attenuation likely fatty infil tration. Spleen contains a unchanged small hepatic hypodensity inferiorly and unchanged focal enhanci ng lesion along the posterior margin measuring 2.5 cm. This appears unremarkable. Unchanged bilateral adrenal nodules measuring 2 cm on the right and 1.5 cm on the left. Gallbladder is absent. No definite intrahepatic or extrahepatic biliary ductal dilatation. Kidneys are symmetric in size without hydronephrosis. Unchanged renal cysts bilaterally largest measu ring 2.5 cm on the right and 5.5 cm on the left. Unchanged nonobstructing right renal calculus measur ing 3 mm. Urinary bladder appears unremarkable. Uterus is absent. No adnexal masses. No free fluid Surgical changes of the stomach with small hiatal hernia. Visualized bowel is of normal caliber witho ut evidence of obstruction. No significant mesenteric inflammation. Scattered distal colonic divertic ulosis. Appendix is not discretely visualized. No free air. Severe atherosclerotic calcifications of the abdominal aorta and bilateral iliac arteries without ane urysm. No intra-abdominal or retroperitoneal lymphadenopathy. Prior hernia repair within the anterior abdominal wall. Subcutaneous soft tissues appear unremarkable. Surgical changes of the right hip. Mu ltilevel degenerative changes of the lumbar spine most pronounced at L3-4 where there is moderate spi nal canal stenosis and moderate to severe right neural foraminal narrowing secondary to disc bulge an d facet arthropathy. IMPRESSION: 1. No acute intraabdominal process. 2. Unchanged nonspecific splenic lesions. 3. Unchanged adrenal nodules. 4. Degenerative changes of the lumbar spine most pronounced at L3-4 causing moderate spinal canal kunal nosis and moderate to severe right neural foraminal narrowing.
[2021-09-08] MEDS ORDERED: NALOXONE 0.4 MG/ML 1 ML VIAL IV PRN (18:01)
--- NOTE | 2021-09-08 18:03 | CT ---
EXAMINATION TYPE: CT brain wo con DATE OF EXAM: 09/08/2021 COMPARISON: CT head 05/15/2018 HISTORY: Weakness, drowsy. CT DLP: 1109.4 mGycm. Automated Exposure Control for Dose Reduction was Utilized. TECHNIQUE: Multiple contiguous axial CT images of the head were performed from the skull base through the vertex without the administration of intravenous contrast. 2-D sagittal and coronal reformats we re obtained. FINDINGS: Similar bifrontal atrophy. No acute intracranial hemorrhage, mass effect, or midline shift. The ventr icles and sulci are within normal limits in size. Burleson-white differentiation is preserved. No CT evid ence of acute large vessel territorial ischemia. Unchanged chronic lacunar infarcts within the right parietal white matter. Calvarium appears intact. The globes are intact and the visualized sinuses are clear. IMPRESSION: No acute intracranial process.
[2021-09-08] MEDS: SODIUM CHLORIDE 0.9% 1,000 ML IV SCH (19:50)
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
[2021-09-08] MEDS: FAMOTIDINE 20 MG TAB PO SCH (20:26)
[2021-09-08] MEDS: PREGABALIN 75 MG CAP PO SCH (20:26)
[2021-09-08] MEDS: ONDANSETRON 4 MG/2 ML VIAL IVP PRN (20:26)
[2021-09-08] MEDS: HEPARIN SODIUM,PORCINE/PF 5,000 UNIT/0.5 ML SYRINGE SQ SCH (20:26)
[2021-09-08] MEDS: HYDROmorphone 0.5 MG/0.5 ML SYRINGE IVP PRN (20:36)
[2021-09-09] MEDS: PANTOPRAZOLE 40 MG/10 ML VIAL IVP SCH ×4 (01:14→20:57)
[2021-09-09] MEDS: HYDROmorphone 0.5 MG/0.5 ML SYRINGE IVP PRN ×6 (01:36→20:59)
[2021-09-09] MEDS: ONDANSETRON 4 MG/2 ML VIAL IVP PRN ×3 (05:17→21:00)
[2021-09-09] MEDS: LEVOTHYROXINE 112 MCG TAB PO SCH (06:19)
[2021-09-09] MEDS: HEPARIN SODIUM,PORCINE/PF 5,000 UNIT/0.5 ML SYRINGE SQ SCH ×2 (08:08→20:58)
[2021-09-09] MEDS: ASPIRIN 81 MG PO SCH (08:09)
[2021-09-09] MEDS: FAMOTIDINE 20 MG TAB PO SCH (08:09)
[2021-09-09] MEDS: DULoxetine HCL 30 MG CAPSULE.DR PO SCH (08:09)
[2021-09-09] MEDS: ISOSORBIDE MONONITRATE ER 30 MG TAB.ER.24H PO SCH (08:09)
[2021-09-09] MEDS: PREGABALIN 75 MG CAP PO SCH ×2 (08:09→20:57)
[2021-09-09 09:42] LABS: Basophils # (A) 0.04 X 10*3/uL (0.00-0.10); Basophils % (A) 0.5 %; Eosinophils # (A) 0.01 X 10*3/uL (0.04-0.35); Eosinophils % (A) 0.1 %; HCT 40.6 % (37.2-46.3); HGB 12.9 g/dL (12.0-15.0); Lymphocytes # (A) 0.94 X 10*3/uL (0.90-5.00); Lymphocytes % (A) 11.6 %; MCH 32.3 pg (27.0-32.0); MCHC 31.8 g/dL (32.0-37.0); MCV 101.5 fL (80.0-97.0); Mean Platelet Volume 11.9 fL (9.5-12.2); Monocytes % (A) 7.4 %; Neutrophils # (A) 6.45 X 10*3/uL (1.80-7.70); Platelet Count 117 X 10*3/uL (140-440); RDW 14.9 % (11.5-14.5); WBC 8.07 X 10*3/uL (4.50-10.00)
[2021-09-09 12:54] LABS: African American GFR (CKD) 104.5 (60.0-200.0); Albumin 3.7 g/dL (3.8-4.9); Albumin/Globulin Ratio 1.95 (1.60-3.17); Anion Gap 13.6 mmol/L (4.00-12.00); BUN/Creat Ratio 21.11 Ratio (12.00-20.00); Bilirubin, Conjugated 0.36 mg/dL (0.20-0.40); Bilirubin,Unconjugated 0.79 mg/dL (0.20-1.00); Blood Urea Nitrogen 12.5 mg/dL (9.0-27.0); Calcium 8.6 mg/dL (8.7-10.3); Carbon Dioxide 27.1 mmol/L (21.6-31.8); Globulin 1.9 g/dL (1.6-3.3); Non-African American GFR(CKD) 90.2 (60.0-200.0); Potassium 3.6 mmol/L (3.5-5.5); Total Bilirubin 1.2 mg/dL (0.30-1.20); Total Protein 5.6 g/dL (6.2-8.2)
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
[2021-09-09] MEDS: SUCRALFATE 1 GM TAB PO SCH (16:15)
[2021-09-09] MEDS: SODIUM CHLORIDE 0.9% 1,000 ML IV SCH ×2 (18:59→20:58)
[2021-09-09] MEDS ORDERED: MAG HYDROX/AL HYDROX/SIMETH 30 ML, HYOSCYAMINE ELIXIR 10 ML, LIDOCAINE VISCOUS 2% 10 ML PO PRN ×3 (20:41)
--- NOTE | 2021-09-09 20:43 | P.PN ---
Subjective This is a pleasant 75 years old female with past medical history of Coronary Artery Disease , Heart Failure, COPD, CVA/ with right hemiparesis, Fibromyalgia, GERD, Hyperlipidemia Osteoarthritis, Rheumatoid Arthritis , hypothyroidism, multiple TIA, chronic neck and back pain status post cervical spine fusion, patient cannot bend her neck and this is chronic. She presents because of continuous vomiting for the last 3-4 days, patient states that she cannot keep anything down associated with some tightness in her chest rather than total chest pain, central, non-radiating. No abdominal pain. She had diarrhea about 2 days ago but it was stopped probably because she was unable to eat and drink well. She denies any dysuria. 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 santos Smoking, alcohol or illicit drugs. She has chronic neck pain status post surgical spine fusion she cannot bend her neck. No headache. No new weakness or numbness she chronically had right sided weakness including arm leg. Baseline she can walk using her walker but no new weakness reported by patient. Patient is hemodynamically stable. Labs including CBC, BMP, liver enzymes, troponin are unremarkable. Urinalysis shows ketonuria most likely from dehydration Coronavirus not detected. CT of the brain showing no acute process. CT of the abdomen and pelvis: Showing no acute intracranial process, bilateral basilar atelectasis. Injection spleen and adrenal nodule, degenerative changes. Basically is remarkable for patient's presentation. Chest x-ray: Cardiomegaly with pulmonary venous congestion of the small left pleural effusion. Correlate for early features of interstitial edema 09/09/2021 Patient with no vomiting since yesterday afternoon. However patient is not capable of tolerating diet well. She still have mild chest pain. Patient hemodynamically stable. Labs showing stable CBC, platelet is 117. BMP is unremarkable. Creatinine 0.6. Liver enzymes not elevated. Continue with Protonix IV daily and Carafate has been added. We will discontinue Pepcid. Add GI cocktail when necessary I discussed the case with Dr. Mckinney looks like the patient had recent EGD done last month for anemia and long-standing history of GERD for several years duration and the result showing moderate-sized mixed type paraesophageal/hiatal hernia. 5-6 mm gastric antral polyp status post biopsy. Irregular GE junction with LA grade a reflux esophagitis Most likely patient's symptoms is from esophagitis therefore we will switch her Protonix to 40 mg twice a day and add GI cocktail Case was discussed also with agricultural equipment sales engineer team. Her pain is non-cardiac in origin Objective - Vital Signs Vital signs: Vital Signs Temp 98.3 F 09/09/21 15:00 Pulse 85 09/09/21 15:00 Resp 18 09/09/21 15:00 BP 94/60 09/09/21 15:00 Pulse Ox 96 09/09/21 15:00 Intake & Output 09/08/21 09/09/21 09/09/21 18:59 06:59 18:59 Intake Total 1445 Output Total 750 Balance 695 Weight 76.204 kg 76.204 kg Intake: Intake, IV Titration 1125 Amount Sodium Chloride 0.9% 1, 1125 000 ml @ 75 mls/hr IV . [id number] [facility] Rx#:[id number] Oral 320 Output: Urine 750 Other: Voiding Method Bedpan Bedpan # Voids 5 # Bowel Movements 0 - Labs CBC & Chem 7: 09/09/21 07:09 09/09/21 07:09 Labs: Abnormal Lab Results - Last 24 Hours (Table) 09/09/21 09/09/21 Range/Units 07:09 07:09 RBC 4.00 L (4.10-5.20) X 10*6/uL MCV 101.5 H (80.0-97.0) fL MCH 32.3 H (27.0-32.0) pg MCHC 31.8 L (32.0-37.0) g/dL RDW 14.9 H (11.5-14.5) % Plt Count 117 L (140-440) X 10*3/uL Eosinophils # 0.01 L (0.04-0.35) X 10*3/uL Anion Gap 13.60 H (4.00-12.00) mmol/L BUN/Creatinine Ratio 21.11 H (12.00-20.00) Ratio Glucose 65 L (70-110) mg/dL Calcium 8.6 L (8.7-10.3) mg/dL Total Protein 5.6 L (6.2-8.2) g/dL Albumin 3.7 L (3.8-4.9) g/dL Assessment and Plan Assessment: Intractable nausea and vomiting with mild chest pain most likely related to her recent diagnosis of reflux esophagitis Dehydration secondary to above Paraesophageal/hiatal hernia History of CVA with right-sided hemiparesis COPD, no acute exacerbation with a chronic hypoxic respiratory failure and 2 L oxygen via nasal cannula History of fibromyalgia History of GERD Hyperlipidemia History of coronary artery disease History of tonic heart failure History of osteoarthritis History of rheumatoid arthritis Hypothyroidism History of multiple TIA History of chronic neck and back pain. History of cervical spine fusion and chronic neck pain. Plan: This is a pleasant 75 years old female who presents with persistent nausea vomiting. Secondary to esophagitis. Continue with IV hydration Increase Protonix to 40 mg twice a day and add Carafate. GI cocktail when necessary Surgery and cardiology input is appreciated. Labs and medication were reviewed.. Continue same treatment. Continue with symptomatic treatment. Resume home medication. Monitor lytes and vitals. DVT and GI prophylaxis. Further recommendations depends on the clinical course of the patient DVT prophylaxis: Subcutaneous heparin GI Prophylaxis: Ppi
[2021-09-09] MEDS: diphenhydrAMINE 25 MG CAP PO PRN (23:19)
[2021-09-10] MEDS: HYDROmorphone 0.5 MG/0.5 ML SYRINGE IVP PRN ×5 (04:15→21:36)
[2021-09-10] MEDS: LEVOTHYROXINE 112 MCG TAB PO SCH (05:43)
[2021-09-10] MEDS: SUCRALFATE 1 GM TAB PO SCH ×3 (07:35→17:57)
[2021-09-10] MEDS: PREGABALIN 75 MG CAP PO SCH ×2 (07:35→21:06)
[2021-09-10] MEDS: DULoxetine HCL 30 MG CAPSULE.DR PO SCH (07:35)
[2021-09-10] MEDS: HEPARIN SODIUM,PORCINE/PF 5,000 UNIT/0.5 ML SYRINGE SQ SCH ×2 (07:35→21:05)
[2021-09-10] MEDS: ASPIRIN 81 MG PO SCH (07:35)
[2021-09-10] MEDS: ISOSORBIDE MONONITRATE ER 30 MG TAB.ER.24H PO SCH (07:35)
[2021-09-10] MEDS: SODIUM CHLORIDE 0.9% 1,000 ML IV SCH (07:36)
[2021-09-10] MEDS: PANTOPRAZOLE 40 MG/10 ML VIAL IVP SCH ×2 (07:36→21:36)
[2021-09-10] MEDS: ONDANSETRON 4 MG/2 ML VIAL IVP PRN ×2 (07:43→23:19)
--- NOTE | 2021-09-10 10:31 | P.PN ---
Subjective Progress Note Date: 09/10/21 HISTORY OF PRESENT ILLNESS: This is a 75-year-old female patient with a past medical history significant for history of stroke in the past as well as hypertension and dyslipidemia who requested to see on the observation unit for further evaluation of chest discomfort. The patient presented to the hospital mainly for about a week history of being nauseated as well as vomiting excessively. Her oral intake was decreased significantly. She stated for the last couple of days she has been experiencing discomfort mainly in the lower chest and epigastric area. The discomfort was not radiating to her chest or arms or neck or shoulders or back. No associated symptoms of sweating or dizziness or lightheadedness or any feeling of heart racing or fluttering or presyncope or syncope. We requested to see the patient for further evaluation of chest discomfort. On examination she does have severe epigastric tenderness. Currently the patient is in process to be seen by the surgical team for the possible need of endoscopy to rule out any gastrointestinal etiology for her chest discomfort. Please note that the patient underwent a heart catheterization in 2018 and that revealed normal coronaries. She underwent also an echocardiogram in 2018 and that revealed normal LV function was mild aortic stenosis and mild mitral stenosis. Currently she is chest pain-free. The troponin at first set came in to be unremarkable. The EKG did not show any significant ST or T-wave abnormalities. 09/10/2021 Patient examined this morning at the bedside. Patient reports generalized abdominal pain and nausea this morning. She denies chest pain or pressure. She has been evaluated by surgery with no plans for intervention at this time. Troponin negative x 2. PHYSICAL EXAM: VITAL SIGNS: Reviewed. GENERAL: Well-developed in no acute distress. NECK: Supple. No JVD or thyromegaly LUNGS: Respirations even and unlabored. Lungs essentially clear to auscultation bilaterally. HEART: Regular rate and rhythm. S1 and S2 heard. Systolic murmur. EXTREMITIES: Normal range of motion. No clubbing or cyanosis. Peripheral pulses intact. No lower extremity edema ASSESSMENT: Abdominal pain, with recent EGD showing reflux esophagitis Intractable nausea and vomiting Hypertension Hyperlipidemia History of TIA PLAN: An acute coronary event has been ruled out Obtain 2D echo to assess cardiac structure and function Patient is currently stable from a cardiac standpoint. She may follow up outpatient with Dr. Saez Nurse practitioner note has been reviewed by physician. Signing provider agrees with the documented findings, assessment, and plan of care. Objective - Vital Signs Vital signs: Vital Signs Temp 98.0 F 09/10/21 07:00 Pulse 97 09/10/21 07:00 Resp 16 09/10/21 07:00 BP 128/74 09/10/21 07:00 Pulse Ox 96 09/10/21 07:00 Intake & Output 09/09/21 09/10/21 09/10/21 18:59 06:59 18:59 Other: Voiding Method Bedpan Bedpan Bedpan # Voids 5 6 # Bowel Movements 0 - Labs CBC & Chem 7: 09/09/21 07:09 09/09/21 07:09 Labs: Abnormal Lab Results - Last 24 Hours (Table) 09/09/21 Range/Units 07:09 Anion Gap 13.60 H (4.00-12.00) mmol/L BUN/Creatinine Ratio 21.11 H (12.00-20.00) Ratio Glucose 65 L (70-110) mg/dL Calcium 8.6 L (8.7-10.3) mg/dL Total Protein 5.6 L (6.2-8.2) g/dL Albumin 3.7 L (3.8-4.9) g/dL
--- NOTE | 2021-09-10 12:00 | ECHOF ---
Referral Reason:lv function MEASUREMENTS -------- HEIGHT: 167.6 cm WEIGHT: 76.2 kg BP: 108/64 RVIDd: 3.5 cm (< 3.3) IVSd: 1.2 cm (0.6 - 1.1) LVIDd: 3.4 cm (3.9 - 5.3) LVPWd: 1.2 cm (0.6 - 1.1) IVSs: 1.5 cm LVIDs: 2.4 cm LVPWs: 1.3 cm LAESV Index (A-L): 50.07 ml/m Ao Diam: 2.8 cm (2.0 - 3.7) AV Cusp: 1.2 cm (1.5 - 2.6) MV E Obey: 2.35 m/s MV DecT: 214 ms MV A Obey: 2.18 m/s MV E/A Ratio: 1.08 RAP: 5.00 mmHg RVSP: 58.63 mmHg FINDINGS -------- Sinus rhythm. This was a technically difficult study with suboptimal apical views. Patient could not turn on her side due to recent broken ribs. The left ventricular size is normal. There is borderline concentric left ventricular hypertrophy. Overall left ventricular systolic function is normal with, an EF between 55 - 60 %. Increased Lap Grade II Diastolic Dysfunction. The right ventricle is mildly enlarged. LA is severely dilated >40 ml/m2 The right atrial size is normal. 5.0mg of Lumason was utilized for enhancement of images Interatrial and interventricular septum intact. The aortic valve is trileaflet and appears structurally normal. There is no evidence of aortic regu rgitation. There is no evidence of aortic stenosis. [id number] mitral regurgitation is present. The peak and mean MV gradients are 24.56mmHg 15. 38mmHg as measured by doppler. Moderate mitral stenosis. Moderate tricuspid regurgitation present. There is moderate pulmonary hypertension. The right augustin tricular systolic pressure, as measured by Doppler, is 58.63mmHg. There is no pulmonic regurgitation present. The aortic root size is normal. IVC Not well visulized. There is no pericardial effusion. CONCLUSIONS -------- 1. The left ventricular size is normal. 2. There is borderline concentric left ventricular hypertrophy. 3. Overall left ventricular systolic function is normal with, an EF between 55 - 60 %. 4. The right ventricle is mildly enlarged. 5. LA is severely dilated >40 ml/m2 6. [id number] mitral regurgitation is present. 7. The peak and mean MV gradients are 24.56mmHg 15.38mmHg as measured by doppler. 8. Moderate mitral stenosis. 9. Moderate tricuspid regurgitation present. 10. There is moderate pulmonary hypertension. 11. The right ventricular systolic pressure, as measured by Doppler, is 58.63mmHg. WILLOW MACHINE OPERATOR: Vanita Bo RDCS
--- NOTE | 2021-09-10 12:43 | XR ---
EXAMINATION TYPE: XR chest 2V DATE OF EXAM: 09/10/2021 COMPARISON: Chest x-ray 09/08/2021 HISTORY: Dyspnea TECHNIQUE: Frontal and lateral views of the chest are obtained. FINDINGS: Bilateral airspace disease has developed in the interval. The heart is enlarged. There is no evident pneumothorax. Some blunting the costophrenic angles as questioned. There are overlying anival ds. Postoperative changes noted right shoulder, overlying artifacts noted. The interstitium is increa sed. IMPRESSION: Correlate for congestive heart failure, there may be small effusions. Pneumonia not excl uded. Pulmonary edema is thought to have progressed compared to prior exam.
[2021-09-10] MEDS ORDERED: LORATADINE 10 MG TAB PO PRN (14:03)
[2021-09-10] MEDS ORDERED: FUROSEMIDE 10 MG/ML 2 ML VIAL IV ONE (14:30)
[2021-09-10] MEDS ORDERED: ATORVASTATIN 10 MG TAB PO SCH (21:00)
[2021-09-10] MEDS: diphenhydrAMINE 25 MG CAP PO PRN (21:06)
--- NOTE | 2021-09-10 22:46 | P.PN ---
Subjective Progress Note Date: 09/10/21 This is a pleasant 75 years old female with past medical history of Coronary Artery Disease , Heart Failure, COPD, CVA/ with right hemiparesis, Fibromyalgia, GERD, Hyperlipidemia Osteoarthritis, Rheumatoid Arthritis , hypothyroidism, multiple TIA, chronic neck and back pain status post cervical spine fusion, patient cannot bend her neck and this is chronic. She presents because of continuous vomiting for the last 3-4 days, patient states that she cannot keep anything down associated with some tightness in her chest rather than total chest pain, central, non-radiating. No abdominal pain. She had diarrhea about 2 days ago but it was stopped probably because she was unable to eat and drink well. She denies any dysuria. She is on 2 L oxygen in at home for her COPD, her lipstick molder is Dr. santos Smoking, alcohol or illicit drugs. She has chronic neck pain status post surgical spine fusion she cannot bend her neck. No headache. No new weakness or numbness she chronically had right sided weakness including arm leg. Baseline she can walk using her walker but no new weakness reported by patient. Patient is hemodynamically stable. Labs including CBC, BMP, liver enzymes, troponin are unremarkable. Urinalysis shows ketonuria most likely from dehydration Coronavirus not detected. CT of the brain showing no acute process. CT of the abdomen and pelvis: Showing no acute intracranial process, bilateral basilar atelectasis. Injection spleen and adrenal nodule, degenerative changes. Basically is remarkable for patient's presentation. Chest x-ray: Cardiomegaly with pulmonary venous congestion of the small left pleural effusion. Correlate for early features of interstitial edema 09/09/2021 Patient with no vomiting since yesterday afternoon. However patient is not capable of tolerating diet well. She still have mild chest pain. Patient hemodynamically stable. Labs showing stable CBC, platelet is 117. BMP is unremarkable. Creatinine 0.6. Liver enzymes not elevated. Continue with Protonix IV daily and Carafate has been added. We will discontinue Pepcid. Add GI cocktail when necessary I discussed the case with Dr. Stahl looks like the patient had recent EGD done last month for anemia and long-standing history of GERD for several years duration and the result showing moderate-sized mixed type paraesophageal/hiatal hernia. 5-6 mm gastric antral polyp status post biopsy. Irregular GE junction with LA grade a reflux esophagitis Most likely patient's symptoms is from esophagitis therefore we will switch her Protonix to 40 mg twice a day and add GI cocktail Case was discussed also with lan specialist team. Her pain is non-cardiac in origin 09/10/2021 Patient is sitting in the bed, she reports dyspnea at rest, on 6 L of cannula. She only wears 2- 3 L of nasal cannula at home for history of COPD. She does follow Dr. Santos in the office. Repeat chest x-ray this morning shows correlate for congestive heart failure, there may be small effusions. Pneumonia not excluded. Pulmonary edema started to progress compared to prior exam. Patient had a BNP done that was 1460. Echocardiogram revealed an EF of 55-60% with borderline concentric left ventricular hypertrophy as well as moderate pulmonary hypertension, moderate tricuspid regurgitation, moderate mitral stenosis, mild to moderate mitral regurgitation, and a severely dilated left atrium. Patient was cleared by cardiology to follow-up in the office. We did resume patient's Lasix today we gave her a dose of IV 20 mg 1 and we will resume her home dose of 20 mg twice a day tomorrow. Titrate O2 as needed. Patient denies any nausea, vomiting, diarrhea today. Speech evaluation today, cont on diet with thin liquids, suspect esophageal nature for dysphagia however patient refused a complete evaluation. ROS Constitutional: Denied any fatigue denied any fever. Cardio vascular: denied any chest pain, palpitations Gastrointestinal denied any nausea vomiting Pulmonary: Reports dyspnea at rest : Reports dysuria, burning with urination Neurologic denied any new focal deficits All inpatient medications were reviewed and appropriate changes in these medications as dictated in the interval history and assessment and plan. PHYSICAL EXAMINATION: GENERAL: The patient is alert and oriented x3, mild dyspnea on exertion. Well developed, well nourished. HEENT: Pupils are round and equally reacting to light. EOMI. No scleral icterus. No conjunctival pallor. Normocephalic, atraumatic. No pharyngeal erythema. No thyromegaly. CARDIOVASCULAR: S1 and S2 present. No murmurs, rubs, or gallops. PULMONARY: Chest is clear to auscultation, no wheezing or crackles. Lungs are diminished. ABDOMEN: Soft, nontender, nondistended, normoactive bowel sounds. No palpable organomegaly. MUSCULOSKELETAL: No joint swelling or deformity. EXTREMITIES: No cyanosis, clubbing, there is +1 pedal and lower extremity edema. NEUROLOGICAL: Gross neurological examination did not reveal any focal deficits. SKIN: No rashes. Assessment and plan Assessment: Intractable nausea and vomiting with mild chest pain most likely related to her recent diagnosis of reflux esophagitis Dehydration secondary to above Paraesophageal/hiatal hernia History of CVA with right-sided hemiparesis COPD, no acute exacerbation with a chronic hypoxic respiratory failure wears 2L NC at home Chronic congestive heart failure, diastolic with mild acute exacerbation, resume Lasix discontinue IV fluids EF 55 to 60% Moderate pulmonary hypertension History of fibromyalgia History of GERD Hyperlipidemia History of coronary artery disease History of osteoarthritis History of rheumatoid arthritis Hypothyroidism History of multiple TIA History of chronic neck and back pain. History of cervical spine fusion and chronic neck pain. Plan: This is a pleasant 75 years old female who presents with persistent nausea vomiting secondary to esophagitis, improving Increase Protonix to 40 mg twice a day and add Carafate. GI cocktail when necessary Discontinue fluids, resume Lasix Wean oxygen as tolerated to home dose of 2 L nasal cannula PT OT consultation is pending Surgery and cardiology input is appreciated. DVT prophylaxis: Subcutaneous heparin GI Prophylaxis: Ppi Wean oxygen, resume lasix, check UA Objective - Vital Signs Vital signs: Vital Signs Temp 98.0 F 09/10/21 07:00 Pulse 97 09/10/21 07:00 Resp 16 09/10/21 07:00 BP 128/74 09/10/21 07:00 Pulse Ox 96 09/10/21 07:00 Intake & Output 09/09/21 09/10/21 09/10/21 18:59 06:59 18:59 Other: Voiding Method Bedpan Bedpan Bedpan # Voids 5 6 2 # Bowel Movements 0 - Labs CBC & Chem 7: 09/09/21 07:09 09/09/21 07:09 Assessment and Plan Time with Patient: Greater than 30
[2021-09-11] MEDS: HYDROmorphone 0.5 MG/0.5 ML SYRINGE IVP PRN ×5 (00:28→16:03)
[2021-09-11 00:37] LABS: Amorphous Sediment,Urine Occasional /hpf; Appearance,Urine Cloudy (Clear); Bilirubin,Urine 1+ (Negative); Blood,Urine Small (Negative); Color,Urine Yellow; Glucose,Urine (UA) Negative (Negative); Hyaline Casts,Urine 6 /lpf (0-2); Ketones,Urine 2+ (Negative); Leukocyte Esterase,Urine Large (Negative); Mucus,Urine Rare /hpf; Nitrite,Urine Negative (Negative); Protein,Urine 1+ (Negative); RBC,Urine 3 /hpf (0-5); Specific Gravity,Urine 1.022 (1.001-1.035); Squamous Epithelial Cell,Urine 10 /hpf (0-4); WBC,Urine 139 /hpf (0-5)
[2021-09-11] MEDS ORDERED: PHENAZOPYRIDINE 100 MG TAB PO PRN (02:00)
[2021-09-11] MEDS: LEVOTHYROXINE 112 MCG TAB PO SCH (05:44)
[2021-09-11 08:20] VITALS: RESP 16
[2021-09-11] MEDS: SUCRALFATE 1 GM TAB PO SCH ×2 (08:40→16:03)
[2021-09-11] MEDS: ASPIRIN 81 MG PO SCH (08:40)
[2021-09-11] MEDS: ISOSORBIDE MONONITRATE ER 30 MG TAB.ER.24H PO SCH (08:40)
[2021-09-11] MEDS: PREGABALIN 75 MG CAP PO SCH (08:41)
[2021-09-11] MEDS: PANTOPRAZOLE 40 MG/10 ML VIAL IVP SCH (08:41)
[2021-09-11] MEDS: HEPARIN SODIUM,PORCINE/PF 5,000 UNIT/0.5 ML SYRINGE SQ SCH (08:41)
[2021-09-11] MEDS: DULoxetine HCL 30 MG CAPSULE.DR PO SCH (08:42)
[2021-09-11] MEDS: ONDANSETRON 4 MG/2 ML VIAL IVP PRN (08:50)
[2021-09-11] MEDS ORDERED: FOLIC ACID 1 MG TAB PO SCH (09:00)
[2021-09-11] MEDS ORDERED: FUROSEMIDE 20 MG TAB PO SCH (09:00)
[2021-09-11 09:05] VITALS: BP 107/66; PULSE 97; TEMP 98.8
[2021-09-11 09:29] LABS: Basophils # (A) 0.02 X 10*3/uL (0.00-0.10); Basophils % (A) 0.3 %; Eosinophils # (A) 0.04 X 10*3/uL (0.04-0.35); Eosinophils % (A) 0.5 %; HCT 40.2 % (37.2-46.3); HGB 12.6 g/dL (12.0-15.0); Lymphocytes # (A) 0.69 X 10*3/uL (0.90-5.00); Lymphocytes % (A) 9.5 %; MCH 31.3 pg (27.0-32.0); MCHC 31.3 g/dL (32.0-37.0); Mean Platelet Volume 12.2 fL (9.5-12.2); Monocytes # (A) 0.52 X 10*3/uL (0.20-1.00); Monocytes % (A) 7.1 %; Neutrophils # (A) 5.99 X 10*3/uL (1.80-7.70); Neutrophils % (A) 82.3 %; Platelet Count 129 X 10*3/uL (140-440); RBC 4.02 X 10*6/uL (4.10-5.20); RDW 14.7 % (11.5-14.5); WBC 7.28 X 10*3/uL (4.50-10.00)
[2021-09-11 10:34] LABS: African American GFR (CKD) 108.1 (60.0-200.0); Anion Gap 12.2 mmol/L (4.00-12.00); BUN/Creat Ratio 14.88 Ratio (12.00-20.00); Blood Urea Nitrogen 7.8 mg/dL (9.0-27.0); Calcium 8.5 mg/dL (8.7-10.3); Carbon Dioxide 33.7 mmol/L (21.6-31.8); Non-African American GFR(CKD) 93.3 (60.0-200.0); Potassium 3.3 mmol/L (3.5-5.5)
[2021-09-11] MEDS ORDERED: Potassium Replacement Protocol 1 EACH MISC MISCELLANE PRN (14:55)
[2021-09-11] MEDS: POTASSIUM CHLORIDE ER 20 MEQ TAB.ER PO SCH ×2 (16:03→16:40)
--- NOTE | 2021-09-12 15:47 | P.PN ---
Subjective Progress Note Date: 09/11/21 Final diagnoses Intractable nausea and vomiting with mild chest pain most likely related to her recent diagnosis of reflux esophagitis Dehydration secondary to above Paraesophageal/hiatal hernia History of CVA with right-sided hemiparesis COPD, no acute exacerbation with a chronic hypoxic respiratory failure wears 2L NC at home Chronic congestive heart failure, diastolic with mild acute exacerbation, resume Lasix EF 55 to 60% Moderate pulmonary hypertension UTI, culture negative, treated with small course of IV antibiotics and oral abx on discharge. History of fibromyalgia History of GERD Hyperlipidemia History of coronary artery disease History of osteoarthritis History of rheumatoid arthritis Hypothyroidism History of multiple TIA History of chronic neck and back pain. History of cervical spine fusion and chronic neck pain Discharge disposition After speaking with patient's over the phone and confirmed with the patient and the social work administrator and pillowcase turner, patient will return home with home care [facility] as well as in-house PT. Patient has been agreeable to this plan and feels he can manage her care at home. This medication reconciliation was completed and patient is given prescription for 4 days of antibiotics for UTI as well as 2 days of Pyridium. She is also given a prescription for Carafate as well as Maalox and a GI cocktail as needed for the esophagitis. She will follow up with her PCP in 2-3 days. Hospital course This is a pleasant 75 years old female with past medical history of Coronary Artery Disease , Heart Failure, COPD, CVA/ with right hemiparesis, Fibromyalgia, GERD, Hyperlipidemia Osteoarthritis, Rheumatoid Arthritis , hypothyroidism, multiple TIA, chronic neck and back pain status post cervical spine fusion, patient cannot bend her neck and this is chronic. She presents to the [facility] because of continuous vomiting for the last 3-4 days, patient states that she cannot keep anything down associated with some tightness in her chest rather than total chest pain, central, non-radiating. She does also admit to an episode of diarrhea 2 days ago that had stopped spontaneously. She denied any blood in the stool. She is on 2 L oxygen at home for her COPD, her pulmo nologist is Dr. santos She has chronic neck pain status post surgical spine fusion she cannot bend her neck. No headache. No new weakness or numbness she chronically had right sided weakness including arm leg. Baseline she can walk using her walker but no new weakness reported by patient. Chest x-ray initially [facility] showed cardiomegaly with pulmonary venous congestion and small left-sided effusion. Correlate for early features of interstitial edema. Lasix was held on admission due to blood pressures of 97/61 and decreased appetite. We did resume Lasix on discharge. Abdominal pelvis CT showed no acute intra-abdominal process. Unchanged nonspecific splenic lesions. Unchanged adrenal nodules. Degenerative changes of the lumbar spine most pronounced at L3 to 4 causing moderate spinal canal stenosis and moderate to severe right neural foraminal narrowing. Patient did have a consultation with Dr. Stahl, she had an EGD with Dr. Brenda kramer that showed reflux esophagitis. Recommendations include Carafate for esophagitis, with no surgical intervention planned. We also discharge patient on a hyoscyamine elixir, Maalox, and Xylocaine Viscous as needed. Speech therapy completed an evaluation did recommend thin liquids, and there was no restrictions. This was technically an incomplete assessment as patient was unable to fully cooperate. Speech Pathologist suggested patients swallowing issues may be esophageal in nature. Cardiology evaluated the patient and ruled out an acute coronary event, a 2-D echo was ordered which revealed an ejection fraction of 55-60% with moderate pulmonary hypertension. Initially patient had no complains of dysuria however 2 days into her admission she did complain of some dysuria and burning with urination. We did recheck an urinalysis and was positive for UA was cloudy, small blood, large leukocyte esterase and 130s and PACs with hyaline casts. It was negative for nitrates. We did treat patient with 2 days of IV Rocephin and discharged her on 4 more days of oral abx. Labs on discharge include an unremarkable blood count panel, sodium level 143 BUN 7.8, creatinine 0.5. Her potassium level was 3.3, we replaced, and prescribed 20 meq daily of potassium on DC. 09/11/2021 Patient is evaluated today resting in the bed. She is still complaining of some pain to her left anterior rib cage chest wall due to a remote fracture. She states that this makes it hard for her to participate PT OT. She does live at home with her . PT evaluation today recommended home with home care or subacute rehab. Vital signs are stable today, her temp is 98.8, blood pressure 107/66, she is 99% on 3 L nasal cannula which she wears at home. She has remained afebrile. Patient was cleared by cardiology for discharge. We did check a repeat chest x-ray prior to discharge which showed a correlation for congestive heart failure with small effusions. However we did check a BNP the previous day which was 1460 and patient responded well with a dose of IV Lasix and resume home dose of oral Lasix. She was able to ambulate on her home dose of 3 L nasal cannula without desaturating. Patient feels she is at her baseline would like to return home with her . We did discuss the possibility of palliative care in the future. Please see medication reconciliation for list of current medications. Thank you for allowing us to participate in the care of this patient. Objective - Vital Signs Vital signs: Vital Signs Temp 98.8 F 09/11/21 09:02 Pulse 97 09/11/21 09:02 Resp 16 09/11/21 09:02 BP 107/66 09/11/21 09:02 Pulse Ox 96 09/11/21 09:02 Intake & Output 09/10/21 09/11/21 09/11/21 18:59 06:59 18:59 Intake Total 250 90 Balance 250 90 Intake: Oral 250 90 Other: Voiding Method Bedpan External Catheter # Voids 2 1 - Labs CBC & Chem 7: 09/11/21 06:26 09/11/21 06:26 Labs: Abnormal Lab Results - Last 24 Hours (Table) 09/10/21 09/11/21 09/11/21 Range/Units Unknown 06:26 06:26 RBC 4.02 L (4.10-5.20) X 10*6/uL MCV 100.0 H (80.0-97.0) fL MCHC 31.3 L (32.0-37.0) g/dL RDW 14.7 H (11.5-14.5) % Plt Count 129 L (140-440) X 10*3/uL Lymphocytes # 0.69 L (0.90-5.00) X 10*3/uL Potassium 3.3 L (3.5-5.5) mmol/L Carbon Dioxide 33.7 H (21.6-31.8) mmol/L Anion Gap 12.20 H (4.00-12.00) mmol/L BUN 7.8 L (9.0-27.0) mg/dL Creatinine 0.5 L (0.6-1.5) mg/dL Plasma Lactic Acid Andrews (0.7-2.0) mmol/L Calcium 8.5 L (8.7-10.3) mg/dL Urine Appearance Cloudy H (Clear) Urine Protein 1+ H (Negative) Urine Ketones 2+ H (Negative) Urine Blood Small H (Negative) Urine Bilirubin 1+ H (Negative) Ur Leukocyte Esterase Large H (Negative) Urine WBC 139 H (0-5) /hpf Ur Squamous Epith Cells 10 H (0-4) /hpf Amorphous Sediment Occasional H (None) /hpf Hyaline Casts 6 H (0-2) /lpf Urine Mucus Rare H (None) /hpf 09/11/21 Range/Units 06:26 RBC (4.10-5.20) X 10*6/uL MCV (80.0-97.0) fL MCHC (32.0-37.0) g/dL RDW (11.5-14.5) % Plt Count (140-440) X 10*3/uL Lymphocytes # (0.90-5.00) X 10*3/uL Potassium (3.5-5.5) mmol/L Carbon Dioxide (21.6-31.8) mmol/L Anion Gap (4.00-12.00) mmol/L BUN (9.0-27.0) mg/dL Creatinine (0.6-1.5) mg/dL Plasma Lactic Acid Andrews 0.6 L (0.7-2.0) mmol/L Calcium (8.7-10.3) mg/dL Urine Appearance (Clear) Urine Protein (Negative) Urine Ketones (Negative) Urine Blood (Negative) Urine Bilirubin (Negative) Ur Leukocyte Esterase (Negative) Urine WBC (0-5) /hpf Ur Squamous Epith Cells (0-4) /hpf Amorphous Sediment (None) /hpf Hyaline Casts (0-2) /lpf Urine Mucus (None) /hpf Microbiology - Last 24 Hours (Table) 09/10/21 Unknown Urine Culture - Preliminary Urine,Voided Assessment and Plan Time with Patient: Greater than 30
== END 2021-09-11 17:05 | disposition home health service (06) | DRG 392 ==
LOC: EC 10:53 → 6NMEDSUR 18:20 → OBSVTOIN 09-11 09:46
PROVIDERS: ADMIT Internal Medicine; ATTEND Internal Medicine
DX: K21.00 Gastro-esophageal reflux disease with esophagitis, without bleeding (principal); I50.32 Chronic diastolic (congestive) heart failure; J96.11 Chronic respiratory failure with hypoxia; N39.0 Urinary tract infection, site not specified; I69.351 Hemiplegia and hemiparesis following cerebral infarction affecting right dominant side; Z20.822 Contact with and (suspected) exposure to COVID-19; I11.0 Hypertensive heart disease with heart failure; R11.2 Nausea with vomiting, unspecified; I25.10 Atherosclerotic heart disease of native coronary artery without angina pectoris; J44.9 Chronic obstructive pulmonary disease, unspecified; E27.8 Other specified disorders of adrenal gland; E78.5 Hyperlipidemia, unspecified; E86.0 Dehydration; E89.0 Postprocedural hypothyroidism; F40.240 Claustrophobia; G25.81 Restless legs syndrome; G89.29 Other chronic pain; I08.1 Rheumatic disorders of both mitral and tricuspid valves; I25.2 Old myocardial infarction; I27.20 Pulmonary hypertension, unspecified; K44.9 Diaphragmatic hernia without obstruction or gangrene; M06.9 Rheumatoid arthritis, unspecified; M48.061 Spinal stenosis, lumbar region without neurogenic claudication; R07.89 Other chest pain; M54.2 Cervicalgia; M47.816 Spondylosis without myelopathy or radiculopathy, lumbar region; J98.6 Disorders of diaphragm; M19.90 Unspecified osteoarthritis, unspecified site; M79.7 Fibromyalgia; R13.10 Dysphagia, unspecified; Z79.82 Long term (current) use of aspirin; Z79.890 Hormone replacement therapy; Z79.899 Other long term (current) drug therapy; Z87.891 Personal history of nicotine dependence; Z90.49 Acquired absence of other specified parts of digestive tract; Z90.710 Acquired absence of both cervix and uterus; Z96.611 Presence of right artificial shoulder joint; Z96.651 Presence of right artificial knee joint; Z98.1 Arthrodesis status; Z88.1 Allergy status to other antibiotic agents; Z88.5 Allergy status to narcotic agent; Z88.8 Allergy status to other drugs, medicaments and biological substances; Z87.19 Personal history of other diseases of the digestive system; Z86.79 Personal history of other diseases of the circulatory system; Z98.51 Tubal ligation status; Z98.42 Cataract extraction status, left eye; Z98.41 Cataract extraction status, right eye; Z99.81 Dependence on supplemental oxygen
CPT/HCPCS: 36415; 70450; 71046; 74177; 80048; 80053; 80076; 81001; 81003; 83605; 83735; 83880; 84484; 85025; 85610; 85730; 87086; 87635; 93005; 93306; 96361; 96374; 96375; 96376; 99285

== ENCOUNTER → 2022-03-01 | Outpatient (CLI) | payer MEDICARE ==
[2022-03-01 20:10] LABS: ALT 15 U/L (8-44); AST 17 U/L (13-35); African American GFR (CKD) 74.3 (60.0-200.0); Albumin 4.2 g/dL (3.8-4.9); Albumin/Globulin Ratio 1.96 (1.60-3.17); Alkaline Phosphatase 87 U/L (41-126); BUN/Creat Ratio 20.63 Ratio (12.00-20.00); Blood Urea Nitrogen 18.2 mg/dL (9.0-27.0); Calcium 9.1 mg/dL (8.7-10.3); Carbon Dioxide 25.9 mmol/L (20.0-27.5); Chloride 97 mmol/L (96-109); Chol/HDL Ratio 1.69 Ratio; Globulin 2.2 g/dL (1.6-3.3); Glucose 94 mg/dL (70-110); LDL Cholesterol,Calculated 56.8 mg/dL (0.0-131.0); Non-African American GFR(CKD) 64.1 (60.0-200.0); Potassium 3.3 mmol/L (3.5-5.5); Sodium 139 mmol/L (135-145); Total Protein 6.4 g/dL (6.2-8.2); VLDL Calculation 10.34 mg/dL (5.00-40.00)
== END | disposition home or self-care (01) ==
LOC: LABMAIN 10:48
PROVIDERS: ATTEND Nurse Practitioner Adult Health
DX: I10 Essential (primary) hypertension (principal); E78.2 Mixed hyperlipidemia; R06.02 Shortness of breath
CPT/HCPCS: 80053; 80061; 83880

== ENCOUNTER → 2022-03-28 | Outpatient (CLI) | payer MEDICARE ==
--- NOTE | 2022-03-28 15:53 | CONS ---
CONSULTATION DATE OF SERVICE: 03/28/2022 This 76-year-old lady has been evaluated in [facility] for significant excessive daytime sleepiness and possible obstructive sleep apnea-hypopnea syndrome. HISTORY OF PRESENT ILLNESS/SLEEP-WAKE EVALUATION: Patient's usual sleep schedule is from 9 or 10 p.m. until 9 or 10 a.m. Sometimes she has problems with falling asleep. She has a TV set in the bedroom. She usually sleeps on the back position. She wakes up from sleep at least 10 times and she goes out of bed 25 times with episodes of nocturia. In the morning she wakes up tired, falling asleep during the day. She has problems with memory, depression, claustrophobia, worries about her sleep. Chandler Sleepiness Scale is in extremely high range at 22. No clear history of hypnagogic hallucinations, sleep paralysis or cataplexy. PAST MEDICAL HISTORY: Positive for TIA, coronary artery disease, status post 2 heart attacks, CHF, COPD, hypothyroidism, hyperlipidemia, restless leg symptoms. PAST SURGICAL HISTORY: Tonsillectomy, adenoidectomy, appendectomy, tubal ligation, partial hysterectomy, hemorrhoidectomy, right elbow surgery, 3 back surgeries, thyroidectomy, cholecystectomy, hemorrhoidectomy, right shoulder replacement, right hip replacement, neck fusion, bilateral cataract surgery. MEDICATIONS: 1. Hydrocodone/acetaminophen. 2. Levothyroxine 112 mcg once a day. 3. Ropinirole 3 mg up to 3 times a day. 4. Pregabalin 75 mg twice a day. 5. Pantoprazole 40 mg once a day. 6. Famotidine 20 mg twice a day. 7. Isosorbide 30 mg once a day. 8. Furosemide 20 mg twice a day. 9. Simvastatin 20 mg once a day. 10.Nitroglycerin as needed. 11.Aspirin 81 mg once a day. 12.Patient is on oxygen 24 hours a day at 3 L/minute. SOCIAL HISTORY: Positive for smoking in the past; quit about 7 years ago. Alcohol consumption: None at the present time. REVIEW OF SYSTEMS: Multiple awakenings from sleep, extreme sleepiness during the day. No fevers. No double vision. No recent chest pain. No shortness of breath. No abdominal pain. No bleeding episodes. No blood in the urine. No seizure episodes. PHYSICAL EXAMINATION: GENERAL: Pleasant lady without distress, falling asleep while in the waiting area. VITAL SIGNS: BP 104/69, HR 108, RR 18, height 5 feet 0 inches, weight 166.4, body mass index 32.4, temperature 97.5, oxygen saturation at room air 97%. HEENT: PERRLA, EOMI, evaluation of oropharynx showed tongue protrudes midline. Extremely low position of soft palate; Mallampati IV. NECK: Supple, no JVD. Thyroid is not palpable. LUNGS: Clear to percussion and to auscultation. Good air exchange. No wheezing or rhonchi. HEART: S1, S2 regular. No murmurs, gallops, or rubs. ABDOMEN: Obese. EXTREMITIES: One plus bilateral ankle edema. WARE CARRIER: Awake, alert, and oriented X3. Cranial nerves 2 to 7 intact. There is no fasciculation or atrophy. noted. No focal deficits observed. IMPRESSION: 1. Multiple awakenings from sleep, extremely low position of soft palate, extreme sleepiness during the day, Chandler Sleepiness Scale of 22; obstructive sleep apnea- hypopnea syndrome. 2. Differential diagnosis should include hypersomnia if sleep study is negative for obstructive sleep apnea-hypopnea syndrome. 3. Chronic obstructive pulmonary disease, on 3 L/minute oxygen supplement 24 hours per day. 4. Obesity; body mass index 32.4. 5. History of restless leg symptoms. 6. Status post thyroidectomy, on thyroid replacement therapy. 7. History of transient ischemic attack. 8. Coronary artery disease, status post two heart attacks. 9. Congestive heart failure. 10.Hyperlipidemia. 11.Status post tonsillectomy and adenoidectomy. 12.Status post appendectomy. 13.Status post partial hysterectomy. 14.Status post hemorrhoidectomy. 15.Status post three back surgeries. 16.Status post cholecystectomy. 17.Status post bilateral surgery for cataract implants. 18.Status post right hip replacement. PLAN: 1. Polysomnography for evaluation of patient's breathing during sleep. 2. CPAP/BiPAP titration if sleep study confirms obstructive sleep apnea-hypopnea syndrome. 3. Preferable position during sleep on the side. 4. No driving if patient feels any sleepiness. 5. I will see patient for follow up visit to explain results of testing and following plan. Thank you very much for referring this patient for consultation. Sincerely, Alphonse Cohn MD, PhD, FAASM Diplomat of [place] [employer] Sleep Medicine Board of [place] [employer] of [employer] [facility] [place] [id number] / HOLLY: [id number] /
== END ==
LOC: SLEEP 13:20
PROVIDERS: ATTEND Internal Medicine
DX: G47.33 Obstructive sleep apnea (adult) (pediatric) (principal); J44.9 Chronic obstructive pulmonary disease, unspecified; E66.9 Obesity, unspecified; Z68.32 Body mass index [BMI] 32.0-32.9, adult; G25.81 Restless legs syndrome; Z86.73 Personal history of transient ischemic attack (TIA), and cerebral infarction without residual deficits; I25.10 Atherosclerotic heart disease of native coronary artery without angina pectoris; I50.9 Heart failure, unspecified; Z90.89 Acquired absence of other organs; Z79.890 Hormone replacement therapy; E78.5 Hyperlipidemia, unspecified; Z90.09 Acquired absence of other part of head and neck; Z90.49 Acquired absence of other specified parts of digestive tract; Z98.890 Other specified postprocedural states; Z96.651 Presence of right artificial knee joint; Z98.41 Cataract extraction status, right eye; Z98.42 Cataract extraction status, left eye; Z88.1 Allergy status to other antibiotic agents; Z88.2 Allergy status to sulfonamides; Z88.5 Allergy status to narcotic agent; Z88.8 Allergy status to other drugs, medicaments and biological substances; Z87.891 Personal history of nicotine dependence; Z79.82 Long term (current) use of aspirin
CPT/HCPCS: 99211

== ENCOUNTER → 2022-05-07 | Outpatient (CLI) | payer MEDICARE ==
--- NOTE | 2022-05-07 16:08 | XR ---
EXAMINATION TYPE: XR chest 2V DATE OF EXAM: 05/07/2022 COMPARISON: Chest x-ray 08/11/2021, CT 09/08/2021 HISTORY: [id number], abnormal chest x-ray TECHNIQUE: Frontal and lateral views of the chest are obtained. FINDINGS: There is improvement in aeration compared to prior exam. Right hemidiaphragm is elevated. No evident pneumothorax. Cardiac mediastinal silhouette is stable. Postop changes noted to be right s houlder. Prominent lung volume with flattening the hemidiaphragms may be indicative of underlying KEELER POLYGRAPH OPERATOR D. Surgical clips are present in the upper abdomen. There is a hiatal hernia present. Possible basila r atelectatic change or scarring is noted on the right. IMPRESSION: Possible basilar atelectasis or scarring, postop changes are noted to the right hemidiap hragm.
== END | disposition home or self-care (01) ==
LOC: RADXRMAIN 13:54
PROVIDERS: ATTEND Family Medicine
DX: R09.89 Other specified symptoms and signs involving the circulatory and respiratory systems (principal)
CPT/HCPCS: 71046

== ENCOUNTER → 2022-06-10 | Outpatient (CLI) | payer MEDICARE ==
[2022-06-10 17:49] LABS: ALT 5 U/L (8-44); AST 26 U/L (13-35); African American GFR (CKD) 83.6 (60.0-200.0); Albumin 3.8 g/dL (3.8-4.9); Albumin/Globulin Ratio 1.27 (1.60-3.17); Alkaline Phosphatase 96 U/L (41-126); Blood Urea Nitrogen 12.8 mg/dL (9.0-27.0); Calcium 9.1 mg/dL (8.7-10.3); Carbon Dioxide 27.3 mmol/L (20.0-27.5); Chloride 101 mmol/L (96-109); Chol/HDL Ratio 1.96 Ratio; Glucose 102 mg/dL (70-110); LDL Cholesterol,Calculated 46.8 mg/dL (0.0-131.0); Non-African American GFR(CKD) 72.1 (60.0-200.0); Potassium 3.9 mmol/L (3.5-5.5); Sodium 139 mmol/L (135-145); Total Protein 6.8 g/dL (6.2-8.2)
== END | disposition home or self-care (01) ==
LOC: LABWHC1 12:15
PROVIDERS: ATTEND Internal Medicine Interventional Cardiology
DX: I50.32 Chronic diastolic (congestive) heart failure (principal); E78.2 Mixed hyperlipidemia
CPT/HCPCS: 36415; 80053; 80061; 83880

== ENCOUNTER 2022-11-12 01:15 | Inpatient (IN) | payer MEDICARE ==
[2022-11-12 01:53] LABS: Basophils % (A) 0 %; Eosinophils # (A) 0.1 k/uL (0-0.7); Eosinophils % (A) 1 %; HCT 33.1 % (34.0-46.0); HGB 10.3 gm/dL (11.4-16.0); Hypochromasia Moderate; Lymphocytes # (A) 1.2 k/uL (1.0-4.8); Lymphocytes % (A) 15 %; MCH 27.8 pg (25.0-35.0); MCHC 31.2 g/dL (31.0-37.0); MCV 89.3 fL (80.0-100.0); Mean Platelet Volume 9.4; Monocytes # (A) 0.5 k/uL (0-1.0); Monocytes % (A) 6 %; Neutrophils # (A) 6.2 k/uL (1.3-7.7); Neutrophils % (A) 77 %; Platelet Count 174 k/uL (150-450); RBC 3.71 m/uL (3.80-5.40); RDW 15.3 % (11.5-15.5); WBC 8.1 k/uL (3.8-10.6)
[2022-11-12 02:04] LABS: Albumin 3.5 g/dL (3.5-5.0); Calcium 7.9 mg/dL (8.4-10.2); Total Bilirubin 0.6 mg/dL (0.2-1.3); Total Protein 6.1 g/dL (6.3-8.2)
--- NOTE | 2022-11-12 02:05 | XR ---
EXAMINATION TYPE: XR chest 2V DATE OF EXAM: 11/12/2022 COMPARISON: 05/07/2022 HISTORY: Chest pain TECHNIQUE: 2 views FINDINGS: Heart is enlarged. There is pulmonary interstitial and airspace edema. There is right shoul silvestre prosthesis. There is mild blunting of the costophrenic angles. Bony thorax appears intact. IMPRESSION: Congestive heart failure with pulmonary edema and pleural fluid which is new compared to old exam.
[2022-11-12 02:37] LABS: Potassium 2.6 mmol/L (3.5-5.1)
[2022-11-12] MEDS ORDERED: HEPARIN SODIUM 1,000 UN/ML (10ML VL) IV PRN (02:46)
[2022-11-12] MEDS ORDERED: HEPARIN SODIUM 1,000 UN/ML (10ML VL) IV ONE (02:46)
[2022-11-12] MEDS ORDERED: HEPARIN SOD,PORK IN 0.45% NACL 25,000 UNIT in 0.45% NACL 1 250ML.BAG IV SCH (03:00)
--- NOTE | 2022-11-12 03:18 | CT ---
EXAMINATION TYPE: CT angio chest DATE OF EXAM: 11/12/2022 COMPARISON: 07/19/2019 HISTORY: Elevated ddimer CT DLP: 412.6 mGycm Automated exposure control for dose reduction was used. CONTRAST: Performed with IV Contrast, patient injected with 80 mL of Isovue 370. There are Three-D postprocessed images. Heart is enlarged. No pericardial effusion. There is small bilateral pleural effusions. There is bila teral lower lobe pulmonary infiltrates and atelectasis. There is patchy interstitial groundglass dens ity throughout the lungs. No mediastinal adenopathy. Exam limited by artifact from the right shoulder surgery. Thoracic aorta is intact. No aneurysm. No dissection. There is no evidence of filling defect in the pulmonary arteries. There is osteoarthritis in the left shoulder joint. No evidence of thoracic aortic aneurysm. Ascending aorta measures 3 cm. There is calcified pleural plaque at the lung bases. There is hiatal hernia. Thoracic spine shows no compression fracture. IMPRESSION: No evidence of pulmonary embolism. Cardiomegaly and interstitial edema which is increased compared to the old exam. There are small pleu ral effusions which are new compared to old exam. This is consistent with some congestive heart failu re. There is bilateral lower lobe pulmonary infiltrates and atelectasis which are unchanged.
[2022-11-12] MEDS: POTASSIUM CHLORIDE 10 MEQ in WATER FOR INJECTION 1 100ML.BAG IVPB SCH ×4 (03:21→09:35)
[2022-11-12] MEDS ORDERED: FUROSEMIDE 10 MG/ML 4 ML VIAL IV STA (03:54)
[2022-11-12] MEDS ORDERED: NALOXONE 0.4 MG/ML 1 ML VIAL IV PRN (03:58)
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
[2022-11-12] MEDS ORDERED: IPRATROPIUM-ALBUTEROL 3 ML NEB INHALATION STA (05:35)
[2022-11-12] MEDS ORDERED: POTASSIUM CHLORIDE 20 MEQ in WATER FOR INJECTION 1 100ML.BAG IVPB STA (09:32)
[2022-11-12] MEDS: METOPROLOL TARTRATE 12.5 MG TAB PO SCH ×2 (10:07→22:45)
[2022-11-12] MEDS ORDERED: hydrOXYzine HCL 25 MG TAB PO PRN (10:56)
--- NOTE | 2022-11-12 11:43 | CONS ---
CONSULTATION HISTORY OF PRESENT ILLNESS: This is a 77-year-old elderly lady with a known history of chronic systolic heart failure and also some mitral valve disease. She came to the hospital with complaints of increasing shortness of breath and weakness. She also had a mild troponin elevation. She also had significant hypokalemia. I was asked to see her in view of her congestive heart failure and troponin elevation. At the time of my evaluation, she is more comfortable. EKG actually revealed a sinus mechanism with PACs even though the computer called it atrial fibrillation. In view of her elevated D-dimer, she underwent a CT angiogram as well in early hours today, and this revealed no evidence of any pulmonary embolism. There were some small pleural effusions and bilateral pulmonary infiltrates and atelectasis. Her laboratory data revealed her BNP was over 2600, and initial troponin was 0.229. Her potassium level was 2.6, and she is receiving supplements. MEDICATIONS AT HOME: Include: 1. Atarax. 2. Zocor 20 mg daily. 3. Lyrica. 4. Levothyroxine 112 mcg daily. 5. Imdur 30 mg daily. 6. Lasix 20 mg b.i.d. 7. Aspirin 81 mg daily. 8. She also takes [place]. ALLERGIES: She is allergic to: 1. Clindamycin. 2. Nystatin. 3. Sulfa. 4. Albuterol. 5. Oxycodone. PHYSICAL EXAMINATION: VITAL SIGNS: Blood pressure is 122/80. Pulse rate is about 90 per minute, sinus with PACs. HEENT: Unremarkable. Fundus was not examined by me. NECK: Supple. There is JVD of 1 cm. No carotid bruit. HEART: Reveals S1 and S2 with a short systolic murmur at the base and a holosystolic murmur at the apex. LUNGS: Reveal bilateral fine basal rales. ABDOMEN: Soft and nontender. EXTREMITIES: Lower extremities reveal diminished pulses. CENTRAL NERVOUS SYSTEM: Grossly no focal deficits. IMPRESSION: 1. Exacerbation of congestive heart failure. 2. Probable mitral regurgitation. 3. Hypertension. 4. Hypercholesterolemia. 5. Hypokalemia. RECOMMENDATIONS: I am recommending we continue the IV Lasix for now, offer potassium supplements, place her on subcutaneous heparin, check echocardiogram, and then make further recommendations. The patient does have elevated troponin, initial draw. We will repeat it, and I will also add metoprolol tartrate 12.5 mg t.i.d. Resume her Synthroid. Recheck a BMP later on today. The patient appears to be in congestive heart failure. I will give Lasix 40 mg q.8 hours for 3 doses and check a BMP in the morning. Discussed my thoughts in detail with the patient. We will check echocardiogram. MMODL / IJN: [id number] /
[2022-11-12] MEDS: ASPIRIN 81 MG PO SCH (11:49)
[2022-11-12] MEDS: PANTOPRAZOLE 40 MG TABLET PO SCH (11:49)
[2022-11-12] MEDS: FUROSEMIDE 10 MG/ML 4 ML VIAL IV SCH (11:54)
[2022-11-12] MEDS: ALBUTEROL HFA INHALER INHALATION PRN (11:59)
[2022-11-12] MEDS: ALPRAZolam 0.25 MG TAB PO PRN ×2 (12:50→22:58)
[2022-11-12] MEDS: PREGABALIN 75 MG CAP PO SCH ×2 (16:16→22:43)
[2022-11-12] MEDS: HEPARIN SODIUM,PORCINE/PF 5,000 UNIT/0.5 ML SYRINGE SQ SCH (22:09)
[2022-11-12 22:33] LABS: HCT 32.9 % (34.0-46.0); HGB 10.4 gm/dL (11.4-16.0); Hypochromasia Moderate; MCH 28.3 pg (25.0-35.0); MCHC 31.7 g/dL (31.0-37.0); MCV 89.2 fL (80.0-100.0); Mean Platelet Volume 9.2; Platelet Count 163 k/uL (150-450); RBC 3.69 m/uL (3.80-5.40); RDW 15.2 % (11.5-15.5); WBC 11.6 k/uL (3.8-10.6)
[2022-11-12] MEDS: ATORVASTATIN 10 MG TAB PO SCH (22:43)
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
[2022-11-13] MEDS: FUROSEMIDE 10 MG/ML 4 ML VIAL IV SCH ×4 (00:53→22:51)
[2022-11-13] MEDS: PANTOPRAZOLE 40 MG TABLET PO SCH (06:10)
[2022-11-13] MEDS: LEVOTHYROXINE 112 MCG TAB PO SCH (06:10)
[2022-11-13 08:52] LABS: Basophils % (A) 0 %; Eosinophils # (A) 0.2 k/uL (0-0.7); Eosinophils % (A) 3 %; HGB 10.4 gm/dL (11.4-16.0); Hypochromasia Moderate; Lymphocytes # (A) 0.8 k/uL (1.0-4.8); Lymphocytes % (A) 11 %; MCH 28.1 pg (25.0-35.0); MCHC 31.4 g/dL (31.0-37.0); MCV 89.5 fL (80.0-100.0); Mean Platelet Volume 9.6; Monocytes # (A) 0.5 k/uL (0-1.0); Monocytes % (A) 7 %; Neutrophils # (A) 5.3 k/uL (1.3-7.7); Neutrophils % (A) 78 %; Platelet Count 134 k/uL (150-450); RBC 3.69 m/uL (3.80-5.40); RDW 15.6 % (11.5-15.5); WBC 6.8 k/uL (3.8-10.6)
[2022-11-13 09:10] LABS: Calcium 6.7 mg/dL (8.4-10.2); Potassium 3.3 mmol/L (3.5-5.1)
[2022-11-13] MEDS: POTASSIUM CHLORIDE ER 10 MEQ TAB.ER.PRT PO SCH (09:32)
[2022-11-13] MEDS: DULoxetine HCL 60 MG CAPSULE.DR PO SCH (09:32)
[2022-11-13] MEDS: HEPARIN SODIUM,PORCINE/PF 5,000 UNIT/0.5 ML SYRINGE SQ SCH ×2 (09:32→20:51)
[2022-11-13] MEDS: ISOSORBIDE MONONITRATE ER 30 MG TAB.ER.24H PO SCH (09:33)
[2022-11-13] MEDS: ASPIRIN 81 MG PO SCH (09:33)
[2022-11-13] MEDS: METOPROLOL TARTRATE 12.5 MG TAB PO SCH ×2 (09:33→20:52)
[2022-11-13] MEDS: PREGABALIN 75 MG CAP PO SCH ×3 (09:33→20:52)
--- NOTE | 2022-11-13 11:03 | CA ---
Transthoracic Echo Report Name: Jessica Scanlon Age: 77 Gender: F : 1945 Exam Date: 11/13/2022 08:48 Exam Location: [place] [facility] Ht (in): 63 Wt (lb): 154 Ordering Physician: Rosa Velasco MD ([id number]) Attending/Referring Phys: Supply Aide Marnie Alonso RDCS Procedure CPT: Indications: heaart Cardiac Hx: Technical Quality: Contrast 1: Total Dose (mL): Contrast 2: Total Dose (mL): MEASUREMENTS (Male / Female) Normal Values 2D ECHO LV Diastolic Diameter PLAX 4.3 cm 4.2 - 5.9 / 3.9 - 5.3 cm LV Systolic Diameter PLAX 2.9 cm IVS Diastolic Thickness 0.9 cm 0.6 - 1.0 / 0.6 - 0.9 cm LVPW Diastolic Thickness 1.4 cm 0.6 - 1.0 / 0.6 - 0.9 cm LV Relative Wall Thickness 0.5 RV Internal Dim ED PLAX 2.8 cm LA Systolic Diameter LX 4.9 cm 3.0 - 4.0 / 2.7 - 3.8 cm LA Volume 95.3 cm??? 18 - 58 / 22 - 52 cm??? M-MODE Aortic Root Diameter MM 2.5 cm LA Systolic Diameter MM 4.9 cm LA Ao Ratio MM 1.9 AV Cusp Separation MM 1.4 cm DOPPLER MV Peak Velocity 263.9 cm/s MV Peak Gradient 27.9 mmHg MV Mean Velocity 158.1 cm/s MV Mean Gradient 10.9 mmHg MV Velocity Time Integral 54.0 cm MV Area PHT 2.3 cm??? Mitral E Point Velocity 69.3 cm/s Mitral A Point Velocity 124.0 cm/s Mitral E to A Ratio 0.6 MV Deceleration Time 323.0 ms MV E' Velocity 4.5 cm/s Mitral E to MV E' Ratio 15.5 TR Peak Velocity 367.3 cm/s TR Peak Gradient 54.0 mmHg Right Ventricular Systolic Press 58.2 mmHg FINDINGS Left Ventricle Mild increased posterior wall thickness. Left ventricular cavity size normal. Left ventricular ejection fraction is estimated at 55 -60 %. Right Ventricle Normal right ventricular size and function. Moderate to severe pulmonary hypertension. Right ventricular systolic pressure estimated at 58 mm hg. Right Atrium Normal right atrial size. Left Atrium Severely increased left atrial diameter. Severely increased left atrial volume. Mildly increased left atrial area. Mitral Valve Moderate mitral stenosis with a peak gradient of 28mmHg and a mean gradient of 11mmhg and peak velocity of 26.5 peak velocity. Moderate to Severe mitral regurgitation.severe mitral annular calcification. Aortic Valve Trileaflet aortic valve.aortic valve sclerosis. Tricuspid Valve Structurally normal tricuspid valve. Mild tricuspid regurgitation. Pulmonic Valve Structurally normal pulmonic valve. Pericardium Normal pericardium. Aorta Normal size aortic root and proximal ascending aorta. CONCLUSIONS 1. Normal left ventricle size and systolic function 2. Severe mitral annulus calcification with moderate to severe mitral regurgitation 3. Mild tricuspid regurgitation with moderate to severe pulmonic hypertension Previewed by: Dr. Christy Saez MD (Electronically Signed) Final Date: 13 November 2022 11:02
[2022-11-13] MEDS: ONDANSETRON 4 MG/2 ML VIAL IVP PRN (11:05)
[2022-11-13] MEDS ORDERED: POTASSIUM CHLORIDE ER 20 MEQ TAB.ER PO SCH (13:00)
[2022-11-13] MEDS: POTASSIUM CHLORIDE ER 20 MEQ TAB.ER PO SCH ×2 (13:17→16:19)
--- NOTE | 2022-11-13 18:30 | PN ---
PROGRESS NOTE Ms. Scanlon is feeling somewhat better today breathing james, but she also developed a bout of nausea and received Zofran. She remains in sinus rhythm. Her shortness of breath is improved with IV Lasix. Echo revealed [id number] mitral regurgitation with moderate pulmonary hypertension and also some mitral stenosis with calcification. I am recommending we will continue current medical regimen for now and then make further recommendations. She received Zofran for nausea, and hopefully, she will feel better. Laboratory data from today suggest that her creatinine is 0.8, potassium is 3.3. We will supplement this. MMODL / IJN: [id number] /
[2022-11-13] MEDS: ATORVASTATIN 10 MG TAB PO SCH (20:52)
[2022-11-13] MEDS: ALPRAZolam 0.25 MG TAB PO PRN (21:07)
--- NOTE | 2022-11-13 23:16 | XR ---
EXAMINATION TYPE: XR chest 1V portable DATE OF EXAM: 11/13/2022 COMPARISON: 11/12/2022 HISTORY: Short of breath TECHNIQUE: Single view FINDINGS: There is pulmonary interstitial and airspace edema. There is slight blunting of the costoph renic angles. Heart is borderline enlarged. There is right shoulder prosthesis. IMPRESSION: There is some pulmonary edema which is improved compared to yesterday and consistent with resolving congestive heart failure.
[2022-11-14] MEDS ORDERED: QUEtiapine 25 MG TAB PO STA (01:28)
[2022-11-14] MEDS: HEPARIN SODIUM,PORCINE/PF 5,000 UNIT/0.5 ML SYRINGE SQ SCH ×2 (08:12→21:13)
[2022-11-14] MEDS: FUROSEMIDE 10 MG/ML 4 ML VIAL IV SCH ×3 (08:13→22:53)
[2022-11-14 09:46] LABS: Basophils % (A) 0 %; Eosinophils # (A) 0.1 k/uL (0-0.7); Eosinophils % (A) 1 %; HCT 33.9 % (34.0-46.0); HGB 10.7 gm/dL (11.4-16.0); Hypochromasia Moderate; Lymphocytes # (A) 0.7 k/uL (1.0-4.8); Lymphocytes % (A) 10 %; MCH 28.1 pg (25.0-35.0); MCHC 31.7 g/dL (31.0-37.0); MCV 88.9 fL (80.0-100.0); Mean Platelet Volume 9.6; Monocytes # (A) 0.4 k/uL (0-1.0); Monocytes % (A) 6 %; Neutrophils # (A) 5.7 k/uL (1.3-7.7); Neutrophils % (A) 82 %; Platelet Count 147 k/uL (150-450); RBC 3.81 m/uL (3.80-5.40); RDW 14.8 % (11.5-15.5); WBC 6.9 k/uL (3.8-10.6)
[2022-11-14 10:11] LABS: Calcium 7.1 mg/dL (8.4-10.2); Potassium 3.5 mmol/L (3.5-5.1)
[2022-11-14] MEDS: DULoxetine HCL 60 MG CAPSULE.DR PO SCH (11:56)
[2022-11-14] MEDS: ISOSORBIDE MONONITRATE ER 30 MG TAB.ER.24H PO SCH (11:57)
[2022-11-14] MEDS: LEVOTHYROXINE 112 MCG TAB PO SCH (11:57)
[2022-11-14] MEDS: POTASSIUM CHLORIDE 20 MEQ in WATER FOR INJECTION 1 100ML.BAG IVPB ONE ×2 (11:57→12:42)
[2022-11-14] MEDS: POTASSIUM CHLORIDE ER 10 MEQ TAB.ER.PRT PO SCH (11:57)
[2022-11-14] MEDS: PREGABALIN 75 MG CAP PO SCH ×3 (11:57→21:13)
[2022-11-14] MEDS: METOPROLOL TARTRATE 12.5 MG TAB PO SCH ×2 (11:57→21:13)
[2022-11-14] MEDS: PANTOPRAZOLE 40 MG TABLET PO SCH (11:57)
[2022-11-14] MEDS: ASPIRIN 81 MG PO SCH (11:57)
[2022-11-14] MEDS: ONDANSETRON 4 MG/2 ML VIAL IVP PRN ×2 (12:35→22:27)
[2022-11-14] MEDS: ATORVASTATIN 10 MG TAB PO SCH (21:13)
[2022-11-14] MEDS ORDERED: HYDROcodone/APAP 10-325MG 1 EACH TAB PO ONE (22:39)
--- NOTE | 2022-11-15 00:19 | P.PN ---
Subjective Progress Note Date: 11/13/22 Patient is a 77-year-old female with a known history of chronic CHF with systolic dysfunction, COPD, , fibromyalgia, history of [place], rheumatoid arthritis, hypothyroidism, chronic hypoxic respiratory failure on home oxygen 3 L via nasal cannula, chronic right-sided diaphragmatic paralysis history and right facial weakness,/TIA, depression and prior history of smoking and other multiple medical problems presents to ER with complaints of shortness of breath and generalized weakness. Patient also felt pain across the upper chest and has been present constantly for the past few days. Patient states that he waited to come to ER because she did not want to catch COVID. Patient has been having worsening symptoms for the past 1 week. Patient does have mild leg swelling. Overall she feels very weak. Denies any fever or chills. No cough or sputum production. No nausea vomiting abdominal pain or diarrhea. Denies any recent illnesses. Chest x-ray showed congestive heart failure with pulmonary edema and pleural fluid which is new compared to old exam. Laboratory pressure WBC 8.1 hemoglobin 10.3 and platelets 174 D-dimer is 1.6 Sodium 143 potassium 2.6 chloride 103 bicarb is 34 BUN 27 creatinine 1.04 Blood sugar is 133 calcium 7.9 Troponin 0.229 and 0.147 and proBNP 2610 Influenza A, B and RSV and COVID-19 PCR not detected. EKG read as atrial fibrillation but likely PACs as per cardiology. 11/13/2022 Patient is lying in the bed. Awake alert and oriented. Requiring oxygen at 4 L via nasal cannula. No complaints of chest pain. Shortness of breath is improving. Patient is being continued on IV Lasix 40 mg q. 8 hourly. Leg swelling is improving. Patient has been afebrile. No cough or sputum production. Tolerating oral diet. No headache or dizziness or lightheadedness. Chest x-ray today showed there is there is some pulmonary edema which improved compared to yesterday. And consistent with resolving congestive heart failure. Laboratory data showed WBC 6.8 hemoglobin 10.4 and platelets 134 Sodium 139 potassium 3.3 chloride 96 bicarb is 39 BUN 18 and creatinine 0.8 and blood sugar 131 and calcium 6.7. 2D echocardiogram showed normal left ventricular size and systolic function. Severe mitral annulus calcification with moderate to severe mitral regurgitation. Mild tricuspid regurgitation with moderate to severe pulmonary hypertension. Current medications reviewed. Objective - Vital Signs Vital signs: Vital Signs Temp 98.2 F 11/13/22 20:00 Pulse 101 H 11/13/22 20:00 Resp 18 11/13/22 20:00 BP 109/65 11/13/22 20:00 Pulse Ox 97 11/13/22 20:00 FiO2 Intake & Output 11/13/22 11/13/22 11/14/22 06:59 18:59 06:59 Intake Total 10 550 Output Total 400 Balance -390 550 Weight 70.3 kg Intake: IV 10 40 Invasive Line 1 10 20 Invasive Line 2 20 Oral 510 Output: Urine 400 Other: Voiding Method Bedside Commode Bedside Commode Diaper Diaper # Voids 2 # Bowel Movements 1 1 - Exam PHYSICAL EXAMINATION: Patient is lying in the bed comfortably, no acute distress, awake alert and oriented.. HEENT: Normocephalic. Neck is supple. Pupils reactive. Nostrils clear. Oral cavity is moist. Neck reveals no JVD, carotid bruits, or thyromegaly. CHEST EXAMINATION: Trachea is central. Symmetrical expansion. Bibasilar diminished sounds. Mild crackles.. CARDIAC: Normal S1, S2 with no gallops. Systolic murmur present. ABDOMEN: Soft. Bowel sounds present. Nontender. No organomegaly. No abdominal bruits. Extremities: Trace bilateral pedal edema. No clubbing or cyanosis Neurologically awake, alert, oriented x3 with well-coordinated movements. No gross focal deficits noted Skin: No rash or skin lesions. Psychiatric: Coperative. Nonsuicidal, Musculoskeletal: No joint swelling or deformity. - Labs CBC & Chem 7: 11/14/22 08:48 11/14/22 08:48 Labs: Abnormal Lab Results - Last 24 Hours (Table) 11/12/22 11/13/22 11/13/22 Range/Units 22:24 07:52 07:52 WBC 11.6 H (3.8-10.6) k/uL RBC 3.69 L 3.69 L (3.80-5.40) m/uL Hgb 10.4 L 10.4 L (11.4-16.0) gm/dL Hct 32.9 L 33.0 L (34.0-46.0) % RDW 15.6 H (11.5-15.5) % Plt Count 134 L (150-450) k/uL Lymphocytes # 0.8 L (1.0-4.8) k/uL Potassium 3.3 L (3.5-5.1) mmol/L Chloride 96 L (98-107) mmol/L Carbon Dioxide 39 H (22-30) mmol/L BUN 18 H (7-17) mg/dL Glucose 131 H (74-99) mg/dL Calcium 6.7 L (8.4-10.2) mg/dL Assessment and Plan Assessment: Shortness of breath likely secondary to acute on chronic CHF with likely diastolic dysfunction. Previous TTE showed normal ejection fraction. Mild to moderate MR. Moderate MS and moderate pulmonary hypertension. 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 Patient will be continued on telemetry monitoring. Follow-up serial EKG and trend troponins. Patient was started heparin drip due to elevated troponin level. Continue with IV Lasix 40 mg every 8 hourly and monitor renal function. 2D echocardiogram report reviewed. Current home medications and follow-up closely. Cardiology is on board. Time with Patient: Greater than 30
--- NOTE | 2022-11-15 00:25 | P.PN ---
Subjective Progress Note Date: 11/14/22 Patient is a 77-year-old female with a known history of chronic CHF with systolic dysfunction, COPD, , fibromyalgia, history of [place], rheumatoid arthritis, hypothyroidism, chronic hypoxic respiratory failure on home oxygen 3 L via nasal cannula, chronic right-sided diaphragmatic paralysis history and right facial weakness,/TIA, depression and prior history of smoking and other multiple medical problems presents to ER with complaints of shortness of breath and generalized weakness. Patient also felt pain across the upper chest and has been present constantly for the past few days. Patient states that he waited to come to ER because she did not want to catch COVID. Patient has been having worsening symptoms for the past 1 week. Patient does have mild leg swelling. Overall she feels very weak. Denies any fever or chills. No cough or sputum production. No nausea vomiting abdominal pain or diarrhea. Denies any recent illnesses. Chest x-ray showed congestive heart failure with pulmonary edema and pleural fluid which is new compared to old exam. Laboratory pressure WBC 8.1 hemoglobin 10.3 and platelets 174 D-dimer is 1.6 Sodium 143 potassium 2.6 chloride 103 bicarb is 34 BUN 27 creatinine 1.04 Blood sugar is 133 calcium 7.9 Troponin 0.229 and 0.147 and proBNP 2610 Influenza A, B and RSV and COVID-19 PCR not detected. EKG read as atrial fibrillation but likely PACs as per cardiology. 11/13/2022 Patient is lying in the bed. Awake alert and oriented. Requiring oxygen at 4 L via nasal cannula. No complaints of chest pain. Shortness of breath is improving. Patient is being continued on IV Lasix 40 mg q. 8 hourly. Leg swelling is improving. Patient has been afebrile. No cough or sputum production. Tolerating oral diet. No headache or dizziness or lightheadedness. Chest x-ray today showed there is there is some pulmonary edema which improved compared to yesterday. And consistent with resolving congestive heart failure. Laboratory data showed WBC 6.8 hemoglobin 10.4 and platelets 134 Sodium 139 potassium 3.3 chloride 96 bicarb is 39 BUN 18 and creatinine 0.8 and blood sugar 131 and calcium 6.7. 2D echocardiogram showed normal left ventricular size and systolic function. Severe mitral annulus calcification with moderate to severe mitral regurgitation. Mild tricuspid regurgitation with moderate to severe pulmonary hypertension. 11/14/2022 Patient is currently resting in the bed. Seems to be lethargic and weak today. Patient is requiring 4 L oxygen via nasal cannula. Otherwise laboratory data showed increased bicarb level to 45. Patient may require BiPAP. Pulmonary was consulted for evaluation. Patient remains on Lasix 40 mg every 8 hourly. Cardiology is on board. Laboratory data showed WBC 6.9 hemoglobin 10.7 platelets 147 sodium 138 potassium 3.5 chloride 91 bicarb 25 BUN 16 and creatinine 0.83. Calcium 7.1. Current medications reviewed. Objective - Vital Signs Vital signs: Vital Signs Temp 98 F 11/14/22 19:38 Pulse 86 11/14/22 19:38 Resp 18 11/14/22 19:38 BP 99/64 11/14/22 19:38 Pulse Ox 92 L 11/14/22 19:38 FiO2 Intake & Output 11/14/22 11/14/22 11/15/22 06:59 18:59 06:59 Intake Total 236 Output Total 600 Balance -364 Weight 69 kg Intake: Oral 236 Output: Urine 600 Other: Voiding Method Diaper Diaper Diaper External Catheter External Catheter External Catheter # Voids 1 - Exam PHYSICAL EXAMINATION: Patient is lying in the bed comfortably, no acute distress, awake alert and oriented.. Patient is lethargic and weak. HEENT: Normocephalic. Neck is supple. Pupils reactive. Nostrils clear. Oral cavity is moist. Neck reveals no JVD, carotid bruits, or thyromegaly. CHEST EXAMINATION: Trachea is central. Symmetrical expansion. Bibasilar diminished sounds. Mild crackles.. CARDIAC: Normal S1, S2 with no gallops. Systolic murmur present. ABDOMEN: Soft. Bowel sounds present. Nontender. No organomegaly. No abdominal bruits. Extremities: Trace bilateral pedal edema. No clubbing or cyanosis Neurologically awake, alert, oriented x3 with well-coordinated movements. No gross focal deficits noted Skin: No rash or skin lesions. Psychiatric: Coperative. Nonsuicidal, Musculoskeletal: No joint swelling or deformity. - Labs CBC & Chem 7: 11/14/22 08:48 11/14/22 08:48 Labs: Abnormal Lab Results - Last 24 Hours (Table) 11/14/22 11/14/22 Range/Units 08:48 08:48 Hgb 10.7 L (11.4-16.0) gm/dL Hct 33.9 L (34.0-46.0) % Plt Count 147 L (150-450) k/uL Lymphocytes # 0.7 L (1.0-4.8) k/uL Chloride 91 L (98-107) mmol/L Carbon Dioxide 45 H* (22-30) mmol/L Glucose 100 H (74-99) mg/dL Calcium 7.1 L (8.4-10.2) mg/dL Assessment and Plan Assessment: Shortness of breath likely secondary to acute on chronic CHF with likely diastolic dysfunction. Previous TTE showed normal ejection fraction. Hypoxic and hypercapnic respiratory failure.On 4 L oxygen currently. Mild to moderate MR. Moderate MS and moderate pulmonary hypertension. 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 Patient will be continued on telemetry monitoring. Patient was started heparin drip due to elevated troponin level. Dced now Continue with IV Lasix 40 mg every 8 hourly and monitor renal function. 2D echocardiogram report reviewed. Current home medications and follow-up closely. Cardiology is on board. Time with Patient: Greater than 30
--- NOTE | 2022-11-15 01:43 | PN ---
PROGRESS NOTE SUBJECTIVE: Ms. Scanlon is in a sinus rhythm. She was confused. She had some CO2 retention, but she is feeling somewhat better today. Denies chest pain. Her shortness of breath has improved. 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 OBJECTIVE: VITAL SIGNS: Stable. NECK: JVD is evident. HEART: S1, S2 heard normal with a systolic murmur at the apex and bases. LUNGS: Reveal bilateral improved air entry. ABDOMEN: Soft, nontender. LOWER EXTREMITIES: Reveal diminished pulses. CENTRAL NERVOUS SYSTEM: Normal. I am recommending that we seek pulmonary evaluation because of her CO2 retention situation and hypercapnia. We will also supplement her potassium. Her nausea has improved. MMODL / IJN: [id number] /
[2022-11-15] MEDS: LEVOTHYROXINE 112 MCG TAB PO SCH (05:12)
[2022-11-15] MEDS: PANTOPRAZOLE 40 MG TABLET PO SCH (05:12)
[2022-11-15 08:02] LABS: Basophils % (A) 0 %; Eosinophils # (A) 0.1 k/uL (0-0.7); Eosinophils % (A) 1 %; HCT 36.1 % (34.0-46.0); HGB 11.4 gm/dL (11.4-16.0); Hypochromasia Moderate; Lymphocytes # (A) 0.8 k/uL (1.0-4.8); Lymphocytes % (A) 11 %; MCH 27.9 pg (25.0-35.0); MCHC 31.6 g/dL (31.0-37.0); MCV 88.2 fL (80.0-100.0); Mean Platelet Volume 9.4; Monocytes # (A) 0.4 k/uL (0-1.0); Monocytes % (A) 6 %; Neutrophils # (A) 5.5 k/uL (1.3-7.7); Neutrophils % (A) 80 %; Platelet Count 145 k/uL (150-450); RBC 4.09 m/uL (3.80-5.40); RDW 14.5 % (11.5-15.5); WBC 6.9 k/uL (3.8-10.6)
[2022-11-15] MEDS: FUROSEMIDE 10 MG/ML 4 ML VIAL IV SCH (08:03)
[2022-11-15] MEDS: POTASSIUM CHLORIDE ER 10 MEQ TAB.ER.PRT PO SCH (08:03)
[2022-11-15] MEDS: ASPIRIN 81 MG PO SCH (08:03)
[2022-11-15] MEDS: PREGABALIN 75 MG CAP PO SCH ×3 (08:03→20:10)
[2022-11-15] MEDS: ISOSORBIDE MONONITRATE ER 30 MG TAB.ER.24H PO SCH (08:03)
[2022-11-15] MEDS: METOPROLOL TARTRATE 12.5 MG TAB PO SCH ×2 (08:03→20:10)
[2022-11-15] MEDS: HEPARIN SODIUM,PORCINE/PF 5,000 UNIT/0.5 ML SYRINGE SQ SCH ×2 (08:04→20:10)
[2022-11-15] MEDS: DULoxetine HCL 60 MG CAPSULE.DR PO SCH (08:04)
[2022-11-15] MEDS: ALBUTEROL HFA INHALER INHALATION PRN ×3 (08:14→19:54)
[2022-11-15 08:39] LABS: Calcium 7.8 mg/dL (8.4-10.2); Potassium 3.5 mmol/L (3.5-5.1)
[2022-11-15] MEDS ORDERED: POTASSIUM CHLORIDE ER 10 MEQ TAB.ER.PRT PO SCH (12:00)
[2022-11-15] MEDS: HYDROcodone/APAP 5-325MG 1 EACH TAB PO PRN ×2 (12:00→20:09)
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
[2022-11-15] MEDS: ATORVASTATIN 10 MG TAB PO SCH (20:10)
[2022-11-15] MEDS: acetaZOLAMIDE 250 MG TAB PO SCH (20:10)
--- NOTE | 2022-11-15 20:58 | PN ---
PROGRESS NOTE SUBJECTIVE: Ms. Scanlon is complaining of nausea. She seems a bit dehydrated. I noted that her CO2 content has gone up. She probably has some contraction alkalosis. We will discontinue Lasix, give her some Diamox, and hydrate her cautiously. JVD is not evident today. OBJECTIVE: VITAL SIGNS: Stable. NECK: JVD is not evident. HEART: S1 and S2 with ejection systolic murmur at the base, holosystolic murmur at the apex. LUNGS: Clear. ABDOMEN: Soft EXTREMITIES: Lower extremities reveal diminished pulses. CENTRAL NERVOUS SYSTEM: Normal. PLAN: To continue current medications, but switch her to oral Lasix and also place her on Diamox and see how she does. Prognosis remains guarded. This lady has mixed mitral valve disease with regurgitation, but maintaining sinus rhythm. Her congestive heart failure seems to have resolved. MMODL / IJN: [id number] /
--- NOTE | 2022-11-16 06:45 | P.PN ---
Subjective Progress Note Date: 11/16/22 Principal diagnosis: Heart failure with preserved ejection fraction The patient is a 77-year-old female patient with a past medical history significant for heart failure with preserved ejection fraction as well as valvular heart disease with known moderate to severe mitral regurgitation was admitted to the hospital with heart failure related to heart failure with preserved ejection fraction. November [id number] The patient was seen and evaluated this morning. She is overall feeling better. She seems to be euvolemic on examination was only diminished breathing sounds bilaterally and no lower extremities edema noted. Currently she is on Lasix by mouth. From a cardiac vascular standpoint of view, the patient potentially can be discharged home in the next 12-24 hours. Continue the current medical regimen. Objective - Vital Signs Vital signs: Vital Signs Temp 97.8 F 11/16/22 04:00 Pulse 82 11/16/22 04:00 Resp 22 11/16/22 04:00 BP 105/63 11/16/22 04:00 Pulse Ox 99 11/16/22 04:00 FiO2 Intake & Output 11/15/22 11/15/22 11/16/22 06:59 18:59 06:59 Intake Total 394 Output Total 400 Balance 394 -400 Weight 69 kg Intake: IV 40 Invasive Line 1 20 Invasive Line 2 20 Oral 354 Output: Urine 400 Other: Voiding Method Diaper Diaper Diaper External Catheter External Catheter External Catheter # Voids 1 - Constitutional General appearance: Present: no acute distress - Respiratory Respiratory: bilateral: diminished - Cardiovascular Rhythm: regular Abnormal Heart Sounds: Present: systolic murmur - Labs CBC & Chem 7: 11/15/22 07:19 11/15/22 07:19 Labs: Abnormal Lab Results - Last 24 Hours (Table) 11/15/22 11/15/22 Range/Units 07:19 07:19 Plt Count 145 L (150-450) k/uL Lymphocytes # 0.8 L (1.0-4.8) k/uL Chloride 88 L (98-107) mmol/L Carbon Dioxide 46 H* (22-30) mmol/L BUN 23 H (7-17) mg/dL Glucose 125 H (74-99) mg/dL Calcium 7.8 L (8.4-10.2) mg/dL Assessment and Plan Assessment: Assessment Heart failure exacerbation secondary to heart failure with preserved ejection fraction Moderate to severe mitral regurgitation Plan Continue the current medical regimen The patient can be discharged home in the next 12-24 hours
[2022-11-16] MEDS: LEVOTHYROXINE 112 MCG TAB PO SCH (07:50)
[2022-11-16] MEDS: PANTOPRAZOLE 40 MG TABLET PO SCH (07:51)
[2022-11-16] MEDS: ALBUTEROL HFA INHALER INHALATION PRN ×4 (08:16→19:03)
[2022-11-16 08:55] LABS: Calcium 8.4 mg/dL (8.4-10.2); Potassium 3.4 mmol/L (3.5-5.1)
[2022-11-16 08:57] LABS: Basophils % (A) 1 %; Eosinophils # (A) 0.1 k/uL (0-0.7); Eosinophils % (A) 2 %; Hypochromasia Marked; Lymphocytes # (A) 0.8 k/uL (1.0-4.8); Lymphocytes % (A) 12 %; MCH 28.2 pg (25.0-35.0); MCHC 31.5 g/dL (31.0-37.0); MCV 89.4 fL (80.0-100.0); Mean Platelet Volume 9.5; Monocytes # (A) 0.5 k/uL (0-1.0); Monocytes % (A) 7 %; Neutrophils # (A) 5.4 k/uL (1.3-7.7); Neutrophils % (A) 77 %; Platelet Count 170 k/uL (150-450); RBC 4.25 m/uL (3.80-5.40); RDW 14.2 % (11.5-15.5)
[2022-11-16] MEDS: DULoxetine HCL 60 MG CAPSULE.DR PO SCH (09:06)
[2022-11-16] MEDS: HEPARIN SODIUM,PORCINE/PF 5,000 UNIT/0.5 ML SYRINGE SQ SCH ×2 (09:06→20:46)
[2022-11-16] MEDS: POTASSIUM CHLORIDE ER 10 MEQ TAB.ER.PRT PO SCH (09:06)
[2022-11-16] MEDS: acetaZOLAMIDE 250 MG TAB PO SCH ×3 (09:07→21:43)
[2022-11-16] MEDS: FUROSEMIDE 40 MG TAB PO SCH (09:07)
[2022-11-16] MEDS: PREGABALIN 75 MG CAP PO SCH ×3 (09:07→20:48)
[2022-11-16] MEDS: ISOSORBIDE MONONITRATE ER 30 MG TAB.ER.24H PO SCH (09:07)
[2022-11-16] MEDS: ASPIRIN 81 MG PO SCH (09:07)
[2022-11-16] MEDS: METOPROLOL TARTRATE 12.5 MG TAB PO SCH ×3 (09:10→21:43)
[2022-11-16] MEDS ORDERED: POTASSIUM CHLORIDE ER 20 MEQ TAB.ER PO STA (09:43)
[2022-11-16] MEDS: HYDROcodone/APAP 5-325MG 1 EACH TAB PO PRN ×2 (12:18→20:46)
--- NOTE | 2022-11-16 12:47 | P.PN ---
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 Patient also felt pain across the upper chest and has been present constantly for the past few days. Patient states that he waited to come to ER because she did not want to catch COVID. Patient has been having worsening symptoms for the past 1 week. Patient does have mild leg swelling. Overall she feels very weak. Denies any fever or chills. No cough or sputum production. No nausea vomiting abdominal pain or diarrhea. Denies any recent illnesses. Chest x-ray showed congestive heart failure with pulmonary edema and pleural fluid which is new compared to old exam. Laboratory pressure WBC 8.1 hemoglobin 10.3 and platelets 174 D-dimer is 1.6 Sodium 143 potassium 2.6 chloride 103 bicarb is 34 BUN 27 creatinine 1.04 Blood sugar is 133 calcium 7.9 Troponin 0.229 and 0.147 and proBNP 2610 Influenza A, B and RSV and COVID-19 PCR not detected. EKG read as atrial fibrillation but likely PACs as per cardiology. 11/13/2022 Patient is lying in the bed. Awake alert and oriented. Requiring oxygen at 4 L via nasal cannula. No complaints of chest pain. Shortness of breath is improving. Patient is being continued on IV Lasix 40 mg q. 8 hourly. Leg swelling is improving. Patient has been afebrile. No cough or sputum production. Tolerating oral diet. No headache or dizziness or lightheadedness. Chest x-ray today showed there is there is some pulmonary edema which improved compared to yesterday. And consistent with resolving congestive heart failure. Laboratory data showed WBC 6.8 hemoglobin 10.4 and platelets 134 Sodium 139 potassium 3.3 chloride 96 bicarb is 39 BUN 18 and creatinine 0.8 and blood sugar 131 and calcium 6.7. 2D echocardiogram showed normal left ventricular size and systolic function. Severe mitral annulus calcification with moderate to severe mitral regurgitation. Mild tricuspid regurgitation with moderate to severe pulmonary hypertension. 11/14/2022 Patient is currently resting in the bed. Seems to be lethargic and weak today. Patient is requiring 4 L oxygen via nasal cannula. Otherwise laboratory data showed increased bicarb level to 45. Patient may require BiPAP. Pulmonary was consulted for evaluation. Patient remains on Lasix 40 mg every 8 hourly. Cardiology is on board. Laboratory data showed WBC 6.9 hemoglobin 10.7 platelets 147 sodium 138 potassium 3.5 chloride 91 bicarb 25 BUN 16 and creatinine 0.83. Calcium 7.1. 11/15/2022 Patient is currently sitting in the chair. Awake alert and seems to be slightly confused. Wants to be discharged home. No complaints of chest pain. Shortness of breath is much improved and leg swelling as well. No fever no chills. Patient does have cough without any sputum production. No nausea vomiting or abdominal pain. Patient did have minimal oral intake today. Laboratory data showed sodium 138 potassium 3.5 chloride 88 bicarb is 46 BUN 23 and creatinine 0.94 and calcium 7.8. Patient is being current on Lasix 40 mg IV every 8 which is being changed to 40 mg p.o. daily. Also continued on duo nebs Diamox was added. Cardiology and pulmonary is on board. Current medications reviewed. Objective - Vital Signs Vital signs: Vital Signs Temp 97.9 F 11/15/22 15:21 Pulse 84 11/15/22 15:21 Resp 18 11/15/22 15:21 BP 101/67 11/15/22 15:21 Pulse Ox 99 11/15/22 20:00 FiO2 Intake & Output 11/15/22 11/15/22 11/16/22 06:59 18:59 06:59 Intake Total 394 Balance 394 Weight 69 kg Intake: IV 40 Invasive Line 1 20 Invasive Line 2 20 Oral 354 Other: Voiding Method Diaper Diaper External Catheter External Catheter # Voids 1 - Exam PHYSICAL EXAMINATION: Patient is lying in the bed comfortably, no acute distress, awake alert and oriented.. Patient is lethargic and weak. HEENT: Normocephalic. Neck is supple. Pupils reactive. Nostrils clear. Oral cavity is moist. Neck reveals no JVD, carotid bruits, or thyromegaly. CHEST EXAMINATION: Trachea is central. Symmetrical expansion. Bibasilar diminished sounds. Mild crackles.. CARDIAC: Normal S1, S2 with no gallops. Systolic murmur present. ABDOMEN: Soft. Bowel sounds present. Nontender. No organomegaly. No abdominal bruits. Extremities: Trace bilateral pedal edema. No clubbing or cyanosis Neurologically awake, alert, oriented x3 with well-coordinated movements. No gross focal deficits noted Skin: No rash or skin lesions. Psychiatric: Coperative. Nonsuicidal, Musculoskeletal: No joint swelling or deformity. - Labs CBC & Chem 7: 11/16/22 08:07 11/16/22 08:07 Labs: Abnormal Lab Results - Last 24 Hours (Table) 11/15/22 11/15/22 Range/Units 07:19 07:19 Plt Count 145 L (150-450) k/uL Lymphocytes # 0.8 L (1.0-4.8) k/uL Chloride 88 L (98-107) mmol/L Carbon Dioxide 46 H* (22-30) mmol/L BUN 23 H (7-17) mg/dL Glucose 125 H (74-99) mg/dL Calcium 7.8 L (8.4-10.2) mg/dL Assessment and Plan Assessment: Shortness of breath likely secondary to acute on chronic CHF with likely d iastolic dysfunction. Previous TTE showed normal ejection fraction. Hypoxic and hypercapnic respiratory failure.On 4 L oxygen currently. Mild to moderate MR. Moderate MS and moderate pulmonary hypertension. 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 Changed to 40 mg p.o. daily. Diamox was added. Patient will be continued on telemetry monitoring. Patient was started heparin drip due to elevated troponin level. Dced now Continue with oxygen supplementation and titrate down.. 2D echocardiogram report reviewed. Current home medications and follow-up closely. Cardiology and pulmonary is on board. Prognosis guarded. Time with Patient: Greater than 30
--- NOTE | 2022-11-16 13:05 | P.PN ---
Subjective Progress Note Date: 11/16/22 77-year-old female who presented to the emergency department on November 12, at about 1:15 in the morning, complaining of shortness of breath, and chest pain. Apparently she been having symptoms for several days prior to admission. She apparently did not want to come to the emergency room initially, because she was afraid that she might get ill in the hospital. Because symptoms were progressing, and not getting any better, she decided to come in to be evaluated. The patient denied any fever or chills. There was no cough or phlegm production. She denied any abdominal pain, nausea, vomiting, or diarrhea. No genitourinary complaints. Recent blood work shows a white count of 6.9, hemoglobin 11.4, hematocrit 36.1, and a platelet count of 145,000. Sodium 138, potassium 3.5, chlorides 88, CO2 46, BUN 23, and creatinine 0.94. Troponin initially was 0.147. The patient's initial N-terminal proBNP was 2610. The patient tested negative for influenza, RSV, and coronavirus. Chest x-ray was co nsistent with CHF. A CT angiogram was negative for pulmonary embolus some, and confirmed the diagnosis of CHF. Follow-up chest x-ray shows improvement. The patient is seen today 11/16/2022 in follow-up on the selective care unit. She is currently resting comfortably in bed. Awake and alert in no acute distress. Maintaining O2 saturations in the 90s on 4 L/m per nasal cannula. White count 7.0. Hemoglobin 12.0. Sodium 138. Potassium 3.4. Bicarb 43. BUN 19. Creatinine 0.98. Glucose 105. She is continued on oral diuretics, Diamox. Heparin for DVT prophylaxis. No extra I know. The patient is incontinent. Objective - Vital Signs Vital signs: Vital Signs Temp 97.8 F 11/16/22 04:00 Pulse 74 11/16/22 12:14 Resp 16 11/16/22 12:14 BP 112/61 11/16/22 12:14 Pulse Ox 99 11/16/22 12:14 FiO2 Intake & Output 11/15/22 11/16/22 11/16/22 18:59 06:59 18:59 Intake Total 394 Output Total 400 Balance 394 -400 Intake: IV 40 Invasive Line 1 20 Invasive Line 2 20 Oral 354 Output: Urine 400 Other: Voiding Method Diaper Diaper Diaper External Catheter External Catheter External Catheter - Exam A pleasant 77-year-old female. No acute distress, oriented 3. Currently on 4 L of oxygen. No obvious respiratory distress. HEENT examination is grossly unremarkable. Neck supple. Full range of motion. No adenopathy thyromegaly or neck vein distention. Cardiovascular examination reveals regular rhythm rate. S1-S2 normal. No S3 or S4. No discernible murmur noted. Heart sounds are distant. Lungs reveal bilateral crackles. No wheezes. No rhonchi. Saturations are 99% on 4 L. Abdomen soft bowel sounds are heard. No masses or tenderness. Extremities are intact. No cyanosis or clubbing. Trace edema is noted. Legs are much improved according to the patient. Skin is without rash or lesion. Neurologic examination is brief but nonfocal. - Labs CBC & Chem 7: 11/16/22 08:07 11/16/22 08:07 Labs: Abnormal Lab Results - Last 24 Hours (Table) 11/16/22 11/16/22 Range/Units 08:07 08:07 Lymphocytes # 0.8 L (1.0-4.8) k/uL Potassium 3.4 L (3.5-5.1) mmol/L Chloride 90 L (98-107) mmol/L Carbon Dioxide 43 H* (22-30) mmol/L BUN 19 H (7-17) mg/dL Glucose 105 H (74-99) mg/dL Assessment and Plan Assessment: Acute on chronic hypoxemic respiratory failure secondary to acute diastolic con gestive heart failure with moderate to severe mitral regurgitation Moderate to severe pulmonary hypertension History of CAD, status post myocardial infarction. History of COPD. History of CVA. History of fibromyalgia. History of GERD. Hyperlipidemia. Hypothyroidism. History of rheumatoid arthritis. Chronic hypoxemic respiratory failure. Multiple other medical problems and comorbidities. Plan: The patient was seen and evaluated Currently stable and on 4 L nasal cannula Titrate the FiO2 as tolerated Continue the current treatment plan We will continue to follow I have personally seen and examined the patient, performed the documentation and the assessment and plan as written. Number of minutes spent on the visit: 10.
--- NOTE | 2022-11-16 15:36 | P.PN ---
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 Patient also felt pain across the upper chest and has been present constantly for the past few days. Patient states that he waited to come to ER because she did not want to catch COVID. Patient has been having worsening symptoms for the past 1 week. Patient does have mild leg swelling. Overall she feels very weak. Denies any fever or chills. No cough or sputum production. No nausea vomiting abdominal pain or diarrhea. Denies any recent illnesses. Chest x-ray showed congestive heart failure with pulmonary edema and pleural fluid which is new compared to old exam. Laboratory pressure WBC 8.1 hemoglobin 10.3 and platelets 174 D-dimer is 1.6 Sodium 143 potassium 2.6 chloride 103 bicarb is 34 BUN 27 creatinine 1.04 Blood sugar is 133 calcium 7.9 Troponin 0.229 and 0.147 and proBNP 2610 Influenza A, B and RSV and COVID-19 PCR not detected. EKG read as atrial fibrillation but likely PACs as per cardiology. 11/13/2022 Patient is lying in the bed. Awake alert and oriented. Requiring oxygen at 4 L via nasal cannula. No complaints of chest pain. Shortness of breath is improving. Patient is being continued on IV Lasix 40 mg q. 8 hourly. Leg swelling is improving. Patient has been afebrile. No cough or sputum production. Tolerating oral diet. No headache or dizziness or lightheadedness. Chest x-ray today showed there is there is some pulmonary edema which improved compared to yesterday. And consistent with resolving congestive heart failure. Laboratory data showed WBC 6.8 hemoglobin 10.4 and platelets 134 Sodium 139 potassium 3.3 chloride 96 bicarb is 39 BUN 18 and creatinine 0.8 and blood sugar 131 and calcium 6.7. 2D echocardiogram showed normal left ventricular size and systolic function. Severe mitral annulus calcification with moderate to severe mitral regurgitation. Mild tricuspid regurgitation with moderate to severe pulmonary hypertension. 11/14/2022 Patient is currently resting in the bed. Seems to be lethargic and weak today. Patient is requiring 4 L oxygen via nasal cannula. Otherwise laboratory data showed increased bicarb level to 45. Patient may require BiPAP. Pulmonary was consulted for evaluation. Patient remains on Lasix 40 mg every 8 hourly. Cardiology is on board. Laboratory data showed WBC 6.9 hemoglobin 10.7 platelets 147 sodium 138 potassium 3.5 chloride 91 bicarb 25 BUN 16 and creatinine 0.83. Calcium 7.1. 11/15/2022 Patient is currently sitting in the chair. Awake alert and seems to be slightly confused. Wants to be discharged home. No complaints of chest pain. Shortness of breath is much improved and leg swelling as well. No fever no chills. Patient does have cough without any sputum production. No nausea vomiting or abdominal pain. Patient did have minimal oral intake today. Laboratory data showed sodium 138 potassium 3.5 chloride 88 bicarb is 46 BUN 23 and creatinine 0.94 and calcium 7.8. Patient is being current on Lasix 40 mg IV every 8 which is being changed to 40 mg p.o. daily. Also continued on duo nebs Diamox was added. Cardiology and pulmonary is on board. 11/16/2022 Patient is monitored on stepdown unit today. Cardiology following and patient has been transitioned to oral lasix. Negative 1.1 L off in the last 24 hours. Patient is quite fatigued today, states she has little energy and no appetite. Labs today show normal white count, hemoglobin 12.0. Sodium 138, potassium 3.4, carbon dioxide 43, Kidney function stable, glucose stable. Continues on oxygen support at 4L with ox saturation of 99%, oxygen can be titrated. Encourage patient up in chairs for meals. Review of Systems Constitutional: Reports fatigue denied any fever. Cardio vascular: denied any chest pain, palpitations Gastrointestinal: denied any nausea, vomiting, diarrhea Pulmonary: Denied any shortness of breath cough Neurologic denied any new focal deficits All inpatient medications were reviewed and appropriate changes in these medications as dictated in the interval history and assessment and plan. PHYSICAL EXAMINATION: GENERAL: The patient is alert and oriented x1-2, not in any acute distress. Well developed, well nourished. Fatigued, drowsy. on 4L nasal cannula. HEENT: Pupils are round and equally reacting to light. EOMI. No scleral icterus. No conjunctival pallor. Normocephalic, atraumatic. No pharyngeal erythema. No thyromegaly. CARDIOVASCULAR: S1 and S2 present. No murmurs, rubs, or gallops. PULMONARY: Chest is clear to auscultation, no wheezing or crackles. ABDOMEN: Soft, nontender, nondistended, normoactive bowel sounds. No palpable organomegaly. MUSCULOSKELETAL: No joint swelling or deformity. EXTREMITIES: No cyanosis, clubbing, or pedal edema. NEUROLOGICAL: Gross neurological examination did not reveal any focal deficits. SKIN: No rashes. Assessment and plan Assessment Shortness of breath likely secondary to acute on chronic CHF with diastolic dysfunction. Previous TTE showed normal ejection fraction. Hypoxic and hypercapnic respiratory failure on 4 L oxygen currently. Mild to moderate MR. Moderate MS and moderate pulmonary hypertension. Severe hypokalemia 2.6 on admission, improving. Elevated troponin level probably demand mismatch/type II [place] History of CVA/TIA with right facial weakness Fibromyalgia History of [place] GERD Hyperlipidemia Neurologist Hypothyroidism Depression Prior history of smoking DVT prophylaxis with heparin subcu GI prophylaxis: Protonix Plan: Continues on oral lasix, oral diamox BID Patient will be continued on telemetry monitoring. Continue with oxygen supplementation and titrate down as tolerated Cardiology and pulmonary is on board. Discussed plan of care with family and patient at bedside. She is quite fatigued today and states, "I don't think I'm going to make it out of here." For now she would like to remain full code and will follow up with patient and family tomorrow. Encourage patient to be up in chairs for meals. Repeat BMP tomorrow. PT/OT has been consulted Prognosis remains guarded. The impression and plan of care has been dictated by Katie Aguilar, Nurse Practitioner as directed. Dr. Trevor MD I have performed a history and physical examination and medical decision making of this patient, discussed the same with the dictator, and agree with the dictators assessment and plan as written, documented as a scribe. Based on total visit time, I have performed more than 50% of this visit. Objective - Vital Signs Vital signs: Vital Signs Temp 97.8 F 11/16/22 04:00 Pulse 75 11/16/22 08:55 Resp 15 11/16/22 08:55 BP 113/58 11/16/22 08:54 Pulse Ox 97 11/16/22 08:54 FiO2 Intake & Output 11/15/22 11/16/22 11/16/22 18:59 06:59 18:59 Intake Total 394 Output Total 400 Balance 394 -400 Intake: IV 40 Invasive Line 1 20 Invasive Line 2 20 Oral 354 Output: Urine 400 Other: Voiding Method Diaper Diaper Diaper External Catheter External Catheter External Catheter - Labs CBC & Chem 7: 11/16/22 08:07 11/16/22 08:07 Labs: Abnormal Lab Results - Last 24 Hours (Table) 11/16/22 11/16/22 Range/Units 08:07 08:07 Lymphocytes # 0.8 L (1.0-4.8) k/uL Potassium 3.4 L (3.5-5.1) mmol/L Chloride 90 L (98-107) mmol/L Carbon Dioxide 43 H* (22-30) mmol/L BUN 19 H (7-17) mg/dL Glucose 105 H (74-99) mg/dL Assessment and Plan Time with Patient: Less than 30
[2022-11-16] MEDS: ATORVASTATIN 10 MG TAB PO SCH (20:47)
[2022-11-16 23:42] LABS: Calcium 8.8 mg/dL (8.4-10.2); Magnesium 2.3 mg/dL (1.6-2.3); Potassium 4.3 mmol/L (3.5-5.1)
[2022-11-17] MEDS: PANTOPRAZOLE 40 MG TABLET PO SCH (06:29)
[2022-11-17] MEDS: LEVOTHYROXINE 112 MCG TAB PO SCH (06:29)
[2022-11-17] MEDS: ALBUTEROL HFA INHALER INHALATION PRN ×3 (07:25→16:12)
[2022-11-17] MEDS: POTASSIUM CHLORIDE ER 10 MEQ TAB.ER.PRT PO SCH (08:27)
[2022-11-17] MEDS: acetaZOLAMIDE 250 MG TAB PO SCH ×2 (08:27→19:36)
[2022-11-17] MEDS: FUROSEMIDE 40 MG TAB PO SCH (08:27)
[2022-11-17] MEDS: DULoxetine HCL 60 MG CAPSULE.DR PO SCH (08:27)
[2022-11-17] MEDS: ISOSORBIDE MONONITRATE ER 30 MG TAB.ER.24H PO SCH (08:27)
[2022-11-17] MEDS: METOPROLOL TARTRATE 12.5 MG TAB PO SCH ×2 (08:27→19:36)
[2022-11-17] MEDS: HEPARIN SODIUM,PORCINE/PF 5,000 UNIT/0.5 ML SYRINGE SQ SCH ×2 (08:27→19:35)
[2022-11-17] MEDS: ASPIRIN 81 MG PO SCH (08:27)
[2022-11-17] MEDS: PREGABALIN 75 MG CAP PO SCH ×3 (08:28→19:30)
--- NOTE | 2022-11-17 09:07 | P.PN ---
Subjective Progress Note Date: 11/17/22 Principal diagnosis: Heart failure with preserved ejection fraction The patient is a 77-year-old female patient with a past medical history significant for heart failure with preserved ejection fraction as well as valvular heart disease with known moderate to severe mitral regurgitation was admitted to the hospital with heart failure related to heart failure with preserved ejection fraction. November [id number] The patient was seen and evaluated this morning. She is overall feeling better. She seems to be euvolemic on examination was only diminished breathing sounds bilaterally and no lower extremities edema noted. Currently she is on Lasix by mouth. From a cardiac vascular standpoint of view, the patient potentially can be discharged home in the next 12-24 hours. Continue the current medical regimen. 11/17/2022 The patient was seen this morning. She seems to be stable from a perivascular standpoint overview. She is asymptomatic at this point. She is you point on examination. From the cardiac vascular standpoint of view, the patient potentially can be discharged home in the next 24 hour. Meanwhile continue the current medical regimen including the current dose of Lasix. Objective - Vital Signs Vital signs: Vital Signs Temp 97.5 F L 11/17/22 00:00 Pulse 79 11/17/22 08:25 Resp 16 11/17/22 08:25 BP 106/63 11/17/22 08:25 Pulse Ox 99 11/17/22 08:25 FiO2 Intake & Output 11/16/22 11/17/22 11/17/22 18:59 06:59 18:59 Output Total 700 950 Balance -700 -950 Weight 69.5 kg Output: Urine 250 Stool 700 700 Other: Voiding Method Diaper Diaper Diaper External Catheter External Catheter External Catheter # Voids 1 - Constitutional General appearance: Present: no acute distress - Respiratory Respiratory: bilateral: diminished - Cardiovascular Heart sounds: normal: S1, S2 Abnormal Heart Sounds: Present: systolic murmur - Labs CBC & Chem 7: 11/16/22 08:07 11/16/22 22:26 Labs: Abnormal Lab Results - Last 24 Hours (Table) 11/16/22 11/16/22 Range/Units 08:07 22:26 Potassium 3.4 L (3.5-5.1) mmol/L Chloride 90 L 93 L (98-107) mmol/L Carbon Dioxide 43 H* 40 H (22-30) mmol/L BUN 19 H 23 H (7-17) mg/dL Creatinine 1.26 H (0.52-1.04) mg/dL Glucose 105 H (74-99) mg/dL Assessment and Plan Assessment: Assessment Heart failure exacerbation secondary to heart failure with preserved ejection fraction Moderate to severe mitral regurgitation Plan Continue the current medical regimen The patient can be discharged home in the next 12-24 hours
--- NOTE | 2022-11-17 11:47 | P.PN ---
Subjective Progress Note Date: 11/17/22 77-year-old female who presented to the emergency department on November 12, at about 1:15 in the morning, complaining of shortness of breath, and chest pain. Apparently she been having symptoms for several days prior to admission. She apparently did not want to come to the emergency room initially, because she was afraid that she might get ill in the hospital. Because symptoms were progressing, and not getting any better, she decided to come in to be evaluated. The patient denied any fever or chills. There was no cough or phlegm production. She denied any abdominal pain, nausea, vomiting, or diarrhea. No genitourinary complaints. Recent blood work shows a white count of 6.9, hemoglobin 11.4, hematocrit 36.1, and a platelet count of 145,000. Sodium 138, potassium 3.5, chlorides 88, CO2 46, BUN 23, and creatinine 0.94. Troponin initially was 0.147. The patient's initial N-terminal proBNP was 2610. The patient tested negative for influenza, RSV, and coronavirus. Chest x-ray was co nsistent with CHF. A CT angiogram was negative for pulmonary embolus some, and confirmed the diagnosis of CHF. Follow-up chest x-ray shows improvement. The patient is seen today 11/16/2022 in follow-up on the selective care unit. She is currently resting comfortably in bed. Awake and alert in no acute distress. Maintaining O2 saturations in the 90s on 4 L/m per nasal cannula. White count 7.0. Hemoglobin 12.0. Sodium 138. Potassium 3.4. Bicarb 43. BUN 19. Creatinine 0.98. Glucose 105. She is continued on oral diuretics, Diamox. Heparin for DVT prophylaxis. No extra I know. The patient is incontinent. The patient is seen today 11/17/2022 in follow-up on the selective care unit. She is sitting up in a chair at the bedside. Awake and alert in no acute distress. Maintaining O2 saturations in the 90s on 4 L/m per nasal cannula. She is continued on bronchodilators. Lasix. Diamox. Heparin for DVT prophylaxis. She is hoping to go home. Objective - Vital Signs Vital signs: Vital Signs Temp 97.5 F L 11/17/22 00:00 Pulse 79 11/17/22 08:25 Resp 16 01/01/23 08:25 BP 106/63 11/17/22 08:25 Pulse Ox 99 11/17/22 08:25 FiO2 Intake & Output 11/16/22 11/17/22 11/17/22 18:59 06:59 18:59 Output Total 700 950 Balance -700 -950 Weight 69.5 kg Output: Urine 250 Stool 700 700 Other: Voiding Method Diaper Diaper Diaper External Catheter External Catheter External Catheter # Voids 1 - Exam A pleasant 77-year-old female. Alert, oriented 3. Currently on 4 L of oxygen. No obvious respiratory distress. HEENT examination is grossly unremarkable. Neck supple. Full range of motion. No adenopathy thyromegaly or neck vein distention. Cardiovascular examination reveals regular rhythm rate. S1-S2 normal. No S3 or S4. No discernible murmur noted. Heart sounds are distant. Lungs reveal bilateral crackles. No wheezes. No rhonchi. Saturations are 99% on 4 L. Abdomen soft bowel sounds are heard. No masses or tenderness. Extremities are intact. No cyanosis or clubbing. Trace edema is noted. Legs are much improved according to the patient. Skin is without rash or lesion. Neurologic examination is brief but nonfocal. - Labs CBC & Chem 7: 11/16/22 08:07 11/16/22 22:26 Labs: Abnormal Lab Results - Last 24 Hours (Table) 11/16/22 Range/Units 22:26 Chloride 93 L (98-107) mmol/L Carbon Dioxide 40 H (22-30) mmol/L BUN 23 H (7-17) mg/dL Creatinine 1.26 H (0.52-1.04) mg/dL Assessment and Plan Assessment: Acute on chronic hypoxemic respiratory failure secondary to acute diastolic congestive heart failure with moderate to severe mitral regurgitation Moderate to severe pulmonary hypertension History of CAD, status post myocardial infarction. History of COPD. History of CVA. History of fibromyalgia. History of GERD. Hyperlipidemia. Hypothyroidism. History of rheumatoid arthritis. Chronic hypoxemic respiratory failure. Multiple other medical problems and comorbidities. Plan: The patient was seen and evaluated Currently stable Wears oxygen at home Cleared For discharge from the pulmonary standpoint Follow-up in the office in 1 week I have personally seen and examined the patient, performed the documentation and the assessment and plan as written. Number of minutes spent on the visit: 10.
[2022-11-17 12:16] LABS: Calcium 8.9 mg/dL (8.4-10.2); Potassium 4.6 mmol/L (3.5-5.1)
--- NOTE | 2022-11-17 14:05 | P.PN ---
Subjective Progress Note Date: 11/17/22 Patient is a 77-year-old female with a known history of chronic CHF with systolic dysfunction, COPD, , fibromyalgia, history of [place], rheumatoid arthritis, hypothyroidism, chronic hypoxic respiratory failure on home oxygen 3 L via nasal cannula, chronic right-sided diaphragmatic paralysis history and right facial weakness,/TIA, depression and prior history of smoking and other multiple medical problems presents to ER with complaints of shortness of breath and generalized weakness. Patient also felt pain across the upper chest and has been present constantly for the past few days. Patient states that he waited to come to ER because she did not want to catch COVID. Patient has been having worsening symptoms for the past 1 week. Patient does have mild leg swelling. Overall she feels very weak. Denies any fever or chills. No cough or sputum production. No nausea vomiting abdominal pain or diarrhea. Denies any recent illnesses. Chest x-ray showed congestive heart failure with pulmonary edema and pleural fluid which is new compared to old exam. Laboratory pressure WBC 8.1 hemoglobin 10.3 and platelets 174 D-dimer is 1.6 Sodium 143 potassium 2.6 chloride 103 bicarb is 34 BUN 27 creatinine 1.04 Blood sugar is 133 calcium 7.9 Troponin 0.229 and 0.147 and proBNP 2610 Influenza A, B and RSV and COVID-19 PCR not detected. EKG read as atrial fibrillation but likely PACs as per cardiology. 11/13/2022 Patient is lying in the bed. Awake alert and oriented. Requiring oxygen at 4 L via nasal cannula. No complaints of chest pain. Shortness of breath is improving. Patient is being continued on IV Lasix 40 mg q. 8 hourly. Leg swelling is improving. Patient has been afebrile. No cough or sputum production. Tolerating oral diet. No headache or dizziness or lightheadedness. Chest x-ray today showed there is there is some pulmonary edema which improved compared to yesterday. And consistent with resolving congestive heart failure. Laboratory data showed WBC 6.8 hemoglobin 10.4 and platelets 134 Sodium 139 potassium 3.3 chloride 96 bicarb is 39 BUN 18 and creatinine 0.8 and blood sugar 131 and calcium 6.7. 2D echocardiogram showed normal left ventricular size and systolic function. Severe mitral annulus calcification with moderate to severe mitral regurgitation. Mild tricuspid regurgitation with moderate to severe pulmonary hypertension. 11/14/2022 Patient is currently resting in the bed. Seems to be lethargic and weak today. Patient is requiring 4 L oxygen via nasal cannula. Otherwise laboratory data showed increased bicarb level to 45. Patient may require BiPAP. Pulmonary was consulted for evaluation. Patient remains on Lasix 40 mg every 8 hourly. Cardiology is on board. Laboratory data showed WBC 6.9 hemoglobin 10.7 platelets 147 sodium 138 potassium 3.5 chloride 91 bicarb 25 BUN 16 and creatinine 0.83. Calcium 7.1. 11/15/2022 Patient is currently sitting in the chair. Awake alert and seems to be slightly confused. Wants to be discharged home. No complaints of chest pain. Shortness of breath is much improved and leg swelling as well. No fever no chills. Patient does have cough without any sputum production. No nausea vomiting or abdominal pain. Patient did have minimal oral intake today. Laboratory data showed sodium 138 potassium 3.5 chloride 88 bicarb is 46 BUN 23 and creatinine 0.94 and calcium 7.8. Patient is being current on Lasix 40 mg IV every 8 which is being changed to 40 mg p.o. daily. Also continued on duo nebs Diamox was added. Cardiology and pulmonary is on board. 11/16/2022 Patient is monitored on stepdown unit today. Cardiology following and patient has been transitioned to oral lasix. Negative 1.1 L off in the last 24 hours. Patient is quite fatigued today, states she has little energy and no appetite. Labs today show normal white count, hemoglobin 12.0. Sodium 138, potassium 3.4, carbon dioxide 43, Kidney function stable, glucose stable. Continues on oxygen support at 4L with ox saturation of 99%, oxygen can be titrated. Encourage patient up in chairs for meals. 11/17/2022 Patient is monitored on stepdown unit. Continues on 4L nasal cannula which she wears chronically at home. Creatinine today 1.33. She has been transitioned to oral lasix, however has had poor oral intake not eating and drinking well. She is asking for discharge home. Pending PT/OT evaluation and also social work for dc planning. Review of Systems Constitutional: Reports fatigue denied any fever. Cardio vascular: denied any chest pain, palpitations Gastrointestinal: denied any nausea, vomiting, diarrhea Pulmonary: Denied any shortness of breath cough Neurologic denied any new focal deficits All inpatient medications were reviewed and appropriate changes in these medications as dictated in the interval history and assessment and plan. PHYSICAL EXAMINATION: GENERAL: The patient is alert and oriented x3, not in any acute distress. Well developed, well nourished. Fatigued, on 4L nasal cannula. HEENT: Pupils are round and equally reacting to light. EOMI. No scleral icterus. No conjunctival pallor. Normocephalic, atraumatic. No pharyngeal erythema. No thyromegaly. CARDIOVASCULAR: S1 and S2 present. No murmurs, rubs, or gallops. PULMONARY: Chest is clear to auscultation, no wheezing or crackles. ABDOMEN: Soft, nontender, nondistended, normoactive bowel sounds. No palpable organomegaly. MUSCULOSKELETAL: No joint swelling or deformity. EXTREMITIES: No cyanosis, clubbing, or pedal edema. NEUROLOGICAL: Gross neurological examination did not reveal any focal deficits. SKIN: No rashes. Assessment and plan Assessment Shortness of breath likely secondary to acute on chronic CHF with diastolic dysf unction. Previous TTE showed normal ejection fraction. Hypoxic and hypercapnic respiratory failure on 4 L oxygen currently. Mild to moderate MR. Moderate MS and moderate pulmonary hypertension. Severe hypokalemia 2.6 on admission, improving. Elevated troponin level probably demand mismatch/type II [place] Chronic respiratory failures secondary to COPD on 4L nasal cannula at home History of CVA/TIA with right facial weakness Fibromyalgia History of [place] GERD Hyperlipidemia Hypothyroidism Depression Prior history of smoking DVT prophylaxis with heparin subcu GI prophylaxis: Protonix Plan: Continues on oral lasix, oral diamox BID On home oxygen dose at 4L Cleared by pulmonary to follow up in 1 week Cardiology following Has been transitioned to oral lasix Encourage patient to increase oral intake Pending PT/OT consultation and social work for discharge planning Likely D/C in the next 24 hours The impression and plan of care has been dictated by Katie Aguilar Nurse Practitioner as directed. Dr. Trevor MD I have performed a history and physical examination and medical decision making of this patient, discussed the same with the dictator, and agree with the dictators assessment and plan as written, documented as a scribe. Based on total visit time, I have performed more than 50% of this visit. Objective - Vital Signs Vital signs: Vital Signs Temp 97.5 F L 11/17/22 00:00 Pulse 81 11/17/22 11:53 Resp 14 11/17/22 11:53 BP 92/55 11/17/22 11:53 Pulse Ox 97 11/17/22 11:53 FiO2 Intake & Output 11/16/22 11/17/22 11/17/22 18:59 06:59 18:59 Output Total 700 950 Balance -700 -950 Weight 69.5 kg Output: Urine 250 Stool 700 700 Other: Voiding Method Diaper Diaper Diaper External Catheter External Catheter External Catheter # Voids 1 - Labs CBC & Chem 7: 11/16/22 08:07 11/17/22 11:35 Labs: Abnormal Lab Results - Last 24 Hours (Table) 11/16/22 11/17/22 Range/Units 22:26 11:35 Chloride 93 L 92 L (98-107) mmol/L Carbon Dioxide 40 H 39 H (22-30) mmol/L BUN 23 H 26 H (7-17) mg/dL Creatinine 1.26 H 1.33 H (0.52-1.04) mg/dL Glucose 134 H (74-99) mg/dL Assessment and Plan Time with Patient: Less than 30
[2022-11-17] MEDS: ATORVASTATIN 10 MG TAB PO SCH (19:36)
[2022-11-17] MEDS: HYDROcodone/APAP 5-325MG 1 EACH TAB PO PRN (19:36)
[2022-11-18] MEDS: ALPRAZolam 0.25 MG TAB PO PRN (00:01)
[2022-11-18] MEDS: LEVOTHYROXINE 112 MCG TAB PO SCH (06:37)
[2022-11-18] MEDS: PANTOPRAZOLE 40 MG TABLET PO SCH (06:37)
[2022-11-18] MEDS: HYDROcodone/APAP 5-325MG 1 EACH TAB PO PRN (06:40)
--- NOTE | 2022-11-18 07:20 | P.PN ---
Subjective Principal diagnosis: Heart failure with preserved ejection fraction The patient is a 77-year-old female patient with a past medical history significant for heart failure with preserved ejection fraction as well as valvular heart disease with known moderate to severe mitral regurgitation was admitted to the hospital with heart failure related to heart failure with preserved ejection fraction. November [id number] The patient was seen and evaluated this morning. She is overall feeling better. She seems to be euvolemic on examination was only diminished breathing sounds bilaterally and no lower extremities edema noted. Currently she is on Lasix by mouth. From a cardiac vascular standpoint of view, the patient potentially can be discharged home in the next 12-24 hours. Continue the current medical regimen. 11/17/2022 The patient was seen this morning. She seems to be stable from a perivascular standpoint overview. She is asymptomatic at this point. She is you point on examination. From the cardiac vascular standpoint of view, the patient potentially can be discharged home in the next 24 hour. Meanwhile continue the current medical regimen including the current dose of Lasix. 11/19/2022 The patient was seen and evaluated this morning. She is feeling better. Currently she is asymptomatic. The pressure has been soft and for that reason was dictated dose of isosorbide mononitrate. Continue the current dose of Lasix by mouth. We'll follow-up with the patient on when necessary case Objective - Vital Signs Vital signs: Vital Signs Temp 97.0 F L 11/18/22 03:45 Pulse 57 L 11/18/22 03:45 Resp 20 11/18/22 03:45 BP 98/54 11/18/22 03:45 Pulse Ox 96 11/18/22 03:45 FiO2 Intake & Output 11/17/22 11/18/22 11/18/22 18:59 06:59 18:59 Intake Total 360 Output Total 500 Balance 360 -500 Intake: Oral 360 Output: Urine 500 Other: Voiding Method Diaper Diaper External Catheter External Catheter # Voids 1 - Constitutional General appearance: Present: no acute distress - Respiratory Respiratory: bilateral: CTA - Cardiovascular Heart sounds: normal: S1, S2 - Labs CBC & Chem 7: 11/16/22 08:07 11/17/22 11:35 Labs: Abnormal Lab Results - Last 24 Hours (Table) 11/17/22 Range/Units 11:35 Chloride 92 L (98-107) mmol/L Carbon Dioxide 39 H (22-30) mmol/L BUN 26 H (7-17) mg/dL Creatinine 1.33 H (0.52-1.04) mg/dL Glucose 134 H (74-99) mg/dL Assessment and Plan Assessment: Assessment Heart failure exacerbation secondary to heart failure with preserved ejection fraction Moderate to severe mitral regurgitation Plan Continue the current medical regimen The patient can be discharged home. We'll follow-up with the patient on when necessary case
[2022-11-18 08:23] LABS: Calcium 8.7 mg/dL (8.4-10.2); Potassium 3.7 mmol/L (3.5-5.1)
[2022-11-18] MEDS ORDERED: ISOSORBIDE MONONITRATE ER 15 MG TAB PO SCH (09:00)
[2022-11-18] MEDS: acetaZOLAMIDE 250 MG TAB PO SCH (09:10)
[2022-11-18] MEDS: HEPARIN SODIUM,PORCINE/PF 5,000 UNIT/0.5 ML SYRINGE SQ SCH (09:10)
[2022-11-18] MEDS: PREGABALIN 75 MG CAP PO SCH (09:10)
[2022-11-18] MEDS: ASPIRIN 81 MG PO SCH (09:10)
[2022-11-18] MEDS: FUROSEMIDE 40 MG TAB PO SCH (09:10)
[2022-11-18] MEDS: DULoxetine HCL 60 MG CAPSULE.DR PO SCH (09:10)
[2022-11-18] MEDS: METOPROLOL TARTRATE 12.5 MG TAB PO SCH (09:11)
[2022-11-18] MEDS: POTASSIUM CHLORIDE ER 10 MEQ TAB.ER.PRT PO SCH (09:11)
[2022-11-18 09:29] VITALS: BP 103/60; RESP 16; TEMP 97
[2022-11-18 10:52] VITALS: PULSE 81
--- NOTE | 2022-11-20 12:18 | P.DS ---
Providers Date of admission: 11/12/22 03:59 Expected date of discharge: 11/18/22 Attending physician: Nora Negron Consults: 11/12/22 03:58 Consult Physician Routine Consulting Provider: [facility] Consult Reason/Comments: CHF exas, elevated troponin Do you want consulting provider notified?: Yes, Notify in am 11/14/22 11:15 Consult Physician Routine Consulting Provider: Vinh Soto Consult Reason/Comments: hypercapnia Do you want consulting provider notified?: Yes Primary care physician: Ajay Ulrich Hospital Course: Final diagnosis Shortness of breath likely secondary to acute on chronic CHF with diastolic dysfunction. Previous TTE showed normal ejection fraction. Hypoxic and hypercapnic respiratory failure on 4 L oxygen currently. Mild to moderate MR. Moderate MS and moderate pulmonary hypertension. Severe hypokalemia 2.6 on admission, improving. Elevated troponin level probably demand mismatch/type II VT Chronic respiratory failures secondary to COPD on 4L nasal cannula at home History of CVA/TIA with right facial weakness Fibromyalgia History of VT GERD Hyperlipidemia Hypothyroidism Depression Prior history of smoking DVT prophylaxis with heparin subcu GI prophylaxis Discharge disposition Patient is being discharged in a stable condition with guarded prognosis to home. Patient will follow-up with Dr. Ulrich in the outpatient setting upon discharge. Patient is to follow-up with cardiology and pulmonary patient as scheduled. Recommend close monitoring of electrolytes and kidney functions. Total time taken is greater than 35 minutes. Hospital course This is a 77-year-old female who was recently admitted with increasing shortness of breath and weakness and having some chest pain and progressive symptoms over the last week although afraid to come to the ER and fear of getting Covid. Patient was diuresed and followed by cardiology continued on oxygen and she chronically wears 2 L outpatient. 2-D echo was performed and cardiology recommending outpatient follow-up. Patient reports to feeling better and wants to go home. Recommend continue with Diamox and close outpatient follow-up with repeat labs. Please refer to consultation dictations for further HPI. Currently no reports of chest pain, worsening shortness of breath, or palpitations. Patient is afebrile. No reports of nausea or vomiting and patient is tolerating diet. Patient will be discharged home today. Guarded prognosis Physical exam: Gen: This is a 77 rolled female who is awake, alert and oriented 3, thin built, elderly appearing female HEENT: Head is atraumatic, normocephalic. Pupils equal, round. Sclerae is anicteric. NECK: Supple. No JVD. No lymphadenopathy. No thyromegaly. LUNGS: Diminished breath sounds bilaterally with some scattered rhonchi noted. No intercostal retractions. HEART: S1, S2 are muffled ABDOMEN: Soft. Bowel sounds are present. No masses. No tenderness. EXTREMITIES: No pedal edema. No calf tenderness. NEUROLOGICAL: Patient is awake, alert and oriented x3. Cranial nerves 2 through 12 are grossly intact. Please refer to medication reconciliation sheet for a list of medications. The impression and plan of care has been dictated by Jaymie Oseguera, Nurse Practitioner as directed. Dr. Jamil MD I have performed a history and examination and MDM of this patient, discussed the same with the dictator, and agree with the dictator's assessment and plan as written ,documented as a scribe. Based on total visit time, I have performed more than 50% of the visit. Patient Condition at Discharge: Stable Plan - Discharge Summary Discharge Rx Participant: No New Discharge Prescriptions: New acetaZOLAMIDE [Diamox] 125 mg PO BID 30 Days #30 tab Isosorbide Mononitrate ER [Imdur] 15 mg PO DAILY 30 Days #30 tab Metoprolol Tartrate [Lopressor] 12.5 mg PO BID 30 Days #60 tab Furosemide [Lasix] 40 mg PO DAILY 30 Days #30 tab Continue Simvastatin [Zocor] 20 mg PO HS rOPINIRole HCL [Requip] 3 mg PO TID Levothyroxine Sodium [Synthroid] 112 mcg PO AC-BRKFST Pregabalin [Lyrica] 75 mg PO TID DULoxetine HCL [Cymbalta] 60 mg PO DAILY tiZANidine [Zanaflex] 2 mg PO BID Potassium Chloride ER [K-Dur 10] 10 meq PO DAILY hydrOXYzine HCL [Atarax] 25 mg PO Q8H PRN PRN Reason: Anxiety Ipratropium-Albuterol Nebulize [Duoneb 0.5 mg-3 mg/3 ml Soln] 3 ml INHALATION RT-QID Pantoprazole [Protonix] 40 mg PO DAILY Aspirin 81 mg PO DAILY 30 Days #30 chew Diclofenac Sodium Gel [Voltaren Gel] 1 gm TOPICAL BID PRN PRN Reason: neck,shoulder,painful areas Albuterol Inhaler [Ventolin Hfa Inhaler] 2 puff INHALATION RT-QID PRN PRN Reason: Shortness Of Breath Changed HYDROcodone/APAP 10-325MG [Hauula 10-325] 1 tab PO BID PRN #0 PRN Reason: Pain Discontinued Furosemide [Lasix] 20 mg PO BID Isosorbide Mononitrate ER [Imdur] 30 mg PO DAILY 30 Days #30 tab.er.24h Discharge Medication List Simvastatin [Zocor] 20 mg PO HS 11/10/14 [History] rOPINIRole HCL [Requip] 3 mg PO TID 01/16/17 [History] Levothyroxine Sodium [Synthroid] 112 mcg PO AC-BRKFST 06/04/17 [History] Pantoprazole [Protonix] 40 mg PO DAILY 05/01/21 [History] Aspirin 81 mg PO DAILY 30 Days #30 chew 05/03/21 [Rx] DULoxetine HCL [Cymbalta] 60 mg PO DAILY 09/08/21 [History] Pregabalin [Lyrica] 75 mg PO TID 09/08/21 [History] Albuterol Inhaler [Ventolin Hfa Inhaler] 2 puff INHALATION RT-QID PRN 11/12/22 [History] Diclofenac Sodium Gel [Voltaren Gel] 1 gm TOPICAL BID PRN 11/12/22 [History] Ipratropium-Albuterol Nebulize [Duoneb 0.5 mg-3 mg/3 ml Soln] 3 ml INHALATION RT-QID 11/12/22 [History] Potassium Chloride ER [K-Dur 10] 10 meq PO DAILY 11/12/22 [History] hydrOXYzine HCL [Atarax] 25 mg PO Q8H PRN 11/12/22 [History] tiZANidine [Zanaflex] 2 mg PO BID 11/12/22 [History] Furosemide [Lasix] 40 mg PO DAILY 30 Days #30 tab 11/18/22 [Rx] HYDROcodone/APAP 10-325MG [Hauula 10-325] 1 tab PO BID PRN #0 11/18/22 [Rx] Isosorbide Mononitrate ER [Imdur] 15 mg PO DAILY 30 Days #30 tab 11/18/22 [Rx] Metoprolol Tartrate [Lopressor] 12.5 mg PO BID 30 Days #60 tab 11/18/22 [Rx] acetaZOLAMIDE [Diamox] 125 mg PO BID 30 Days #30 tab 11/18/22 [Rx] Follow up Appointment(s)/Referral(s): Rosa Velasco MD [STAFF PHYSICIAN] - 1 Week (Office closed at time of discharge. Ensure office is aware that this is an appointment following a hospital stay.) Vinh Soto DO [Doctor of Osteopathic Medicine] - 1 Week (Office closed at time of discharge. Ensure office is aware that this is an appointment following a hospital stay.) Ajay Ulrich DO [Primary Care Provider] - 1-2 days (Office closed at time of discharge. Ensure office is aware that this is an appointment following a hospital stay.) Ambulatory/Diagnostic Orders: Basic Metabolic Panel [LAB.AMB] Time Frame: 3 Days, Location: None Selected Patient Instructions/Handouts: Heart Failure (DC) Activity/Diet/Wound Care/Special Instructions: Activity Limited until follow-up Follow-up with primary care provider on discharge Follow-up with cardiology and pulmonary outpatient Recommend repeat labs Continue heart healthy chopped diet Discharge Disposition: HOME SELF-CARE
== END 2022-11-18 14:28 | disposition home or self-care (01) | DRG 280 ==
LOC: EC 01:15 → 3SCARD 03:59
PROVIDERS: ADMIT Hospitalist; ATTEND Hospitalist
DX: I11.0 Hypertensive heart disease with heart failure (principal); I21.A1 Myocardial infarction type 2; I50.43 Acute on chronic combined systolic (congestive) and diastolic (congestive) heart failure; J96.22 Acute and chronic respiratory failure with hypercapnia; J96.21 Acute and chronic respiratory failure with hypoxia; E87.4 Mixed disorder of acid-base balance; J98.11 Atelectasis; E78.00 Pure hypercholesterolemia, unspecified; E86.0 Dehydration; E87.6 Hypokalemia; E89.0 Postprocedural hypothyroidism; F32.A Depression, unspecified; Z87.891 Personal history of nicotine dependence; F40.240 Claustrophobia; G25.81 Restless legs syndrome; I05.2 Rheumatic mitral stenosis with insufficiency; I25.10 Atherosclerotic heart disease of native coronary artery without angina pectoris; I25.2 Old myocardial infarction; I27.20 Pulmonary hypertension, unspecified; I48.91 Unspecified atrial fibrillation; J44.9 Chronic obstructive pulmonary disease, unspecified; K21.9 Gastro-esophageal reflux disease without esophagitis; M06.9 Rheumatoid arthritis, unspecified; Z99.81 Dependence on supplemental oxygen; G89.29 Other chronic pain; M79.7 Fibromyalgia; I49.1 Atrial premature depolarization; R32 Unspecified urinary incontinence; Z20.822 Contact with and (suspected) exposure to COVID-19; Z79.82 Long term (current) use of aspirin; Z79.890 Hormone replacement therapy; Z79.899 Other long term (current) drug therapy; Z80.49 Family history of malignant neoplasm of other genital organs; Z86.73 Personal history of transient ischemic attack (TIA), and cerebral infarction without residual deficits; Z96.611 Presence of right artificial shoulder joint; Z96.651 Presence of right artificial knee joint; Z98.1 Arthrodesis status; Z87.01 Personal history of pneumonia (recurrent); Z88.1 Allergy status to other antibiotic agents; Z88.5 Allergy status to narcotic agent; Z88.2 Allergy status to sulfonamides; Z88.8 Allergy status to other drugs, medicaments and biological substances; Z28.82 Immunization not carried out because of caregiver refusal
CPT/HCPCS: 36415; 71045; 71046; 71275; 80048; 80053; 83735; 83880; 84132; 84484; 85025; 85027; 85379; 85730; 87636; 93005; 93306; 94640; 94760; 96361; 96365; 96366; 96375; 96376; 99285

== ENCOUNTER 2023-02-26 13:42 | Emergency (ER) | payer MEDICARE ==
[2023-02-26] MEDS ORDERED: SODIUM CHLORIDE 0.9% 1,000 ML IV STA (15:58)
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
[2023-02-26 16:34] LABS: Anisocytosis Slight; Basophils % (A) 0 %; Eosinophils # (A) 0.1 k/uL (0-0.7); Eosinophils % (A) 2 %; HCT 37.5 % (34.0-46.0); HGB 11.5 gm/dL (11.4-16.0); Hypochromasia Moderate; Lymphocytes # (A) 1.4 k/uL (1.0-4.8); Lymphocytes % (A) 26 %; MCH 26.1 pg (25.0-35.0); MCHC 30.7 g/dL (31.0-37.0); MCV 85.1 fL (80.0-100.0); Mean Platelet Volume 9.2; Monocytes # (A) 0.4 k/uL (0-1.0); Monocytes % (A) 6 %; Neutrophils # (A) 3.4 k/uL (1.3-7.7); Neutrophils % (A) 62 %; Platelet Count 136 k/uL (150-450); RBC 4.41 m/uL (3.80-5.40); RDW 17.5 % (11.5-15.5); WBC 5.5 k/uL (3.8-10.6)
--- NOTE | 2023-02-26 16:35 | XR ---
EXAMINATION TYPE: XR chest 1V portable DATE OF EXAM: 02/26/2023 4:26 PM COMPARISON: Chest radiographs from 11/13/2022. TECHNIQUE: XR chest 1V portable Frontal view of the chest. CLINICAL INDICATION:Female, 77 years old with history of cp; FINDINGS: Lungs/Pleura: There is no evidence of pleural effusion, focal consolidation, or pneumothorax. Pulmonary vascularity: Unremarkable. Heart/mediastinum: Cardiomediastinal silhouette is unremarkable. Atherosclerotic calcifications are seen in the aorta. Musculoskeletal: No acute osseous pathology. Right shoulder arthroplasty changes. Hardware appears in tact. Fixation hardware in the lower cervical spine. IMPRESSION: Small left pleural effusion which appears new from prior.
[2023-02-26 16:44] LABS: Prothrombin Time 10.5 sec (9.0-12.0)
[2023-02-26 16:45] LABS: Partial Thromboplastin Time 24.5 sec (22.0-30.0)
[2023-02-26 16:51] LABS: Albumin 3.4 g/dL (3.5-5.0); Calcium 8.2 mg/dL (8.4-10.2); Magnesium 2.4 mg/dL (1.6-2.3); Phosphorus 4.5 mg/dL (2.5-4.5); Total Bilirubin 0.6 mg/dL (0.2-1.3); Total Protein 6.2 g/dL (6.3-8.2)
[2023-02-26 19:02] VITALS: RESP 16
[2023-02-26 20:07] VITALS: BP 116/69; PULSE 82; TEMP 98.3
== END 2023-02-26 20:50 | disposition home or self-care (01) ==
LOC: EC 13:42
DX: R53.1 Weakness (principal); F32.A Depression, unspecified; Z79.899 Other long term (current) drug therapy; Z88.1 Allergy status to other antibiotic agents; Z88.2 Allergy status to sulfonamides; Z88.5 Allergy status to narcotic agent; Z88.8 Allergy status to other drugs, medicaments and biological substances; Z86.73 Personal history of transient ischemic attack (TIA), and cerebral infarction without residual deficits; Z87.891 Personal history of nicotine dependence
CPT/HCPCS: 36415; 71045; 80053; 83605; 83735; 83880; 84100; 84484; 85025; 85610; 85730; 93005; 96360; 99285

== ENCOUNTER 2023-03-11 12:44 | Inpatient (IN) | payer MEDICARE ==
[2023-03-11 13:24] LABS: Anisocytosis Slight; Basophils % (A) 0 %; Eosinophils % (A) 0 %; HCT 43.3 % (34.0-46.0); HGB 13.5 gm/dL (11.4-16.0); Hypochromasia Slight; Lymphocytes # (A) 0.8 k/uL (1.0-4.8); Lymphocytes % (A) 12 %; MCH 25.8 pg (25.0-35.0); MCHC 31.1 g/dL (31.0-37.0); MCV 82.9 fL (80.0-100.0); Mean Platelet Volume 7.9; Monocytes # (A) 0.3 k/uL (0-1.0); Monocytes % (A) 4 %; Neutrophils # (A) 5.4 k/uL (1.3-7.7); Neutrophils % (A) 81 %; Platelet Count 151 k/uL (150-450); RBC 5.22 m/uL (3.80-5.40); RDW 18.1 % (11.5-15.5); WBC 6.7 k/uL (3.8-10.6)
[2023-03-11 13:46] LABS: Albumin 3.7 g/dL (3.5-5.0); Calcium 8.8 mg/dL (8.4-10.2); Potassium 4.3 mmol/L (3.5-5.1); Total Bilirubin 0.9 mg/dL (0.2-1.3); Total Protein 6.6 g/dL (6.3-8.2)
[2023-03-11] MEDS ORDERED: SODIUM CHLORIDE 0.9% 1,000 ML IV ONE (13:51)
[2023-03-11] MEDS ORDERED: ONDANSETRON 4 MG/2 ML VIAL IVP STA (13:51)
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
[2023-03-11 15:07] LABS: Appearance,Urine Clear (Clear); Bilirubin,Urine 1+ (Negative); Blood,Urine Negative (Negative); Color,Urine Yellow; Glucose,Urine (UA) 4+ (Negative); Leukocyte Esterase,Urine Negative (Negative); Nitrite,Urine Negative (Negative); PH, Urine 5.5 (5.0-8.0); Protein,Urine Trace (Negative); Specific Gravity,Urine 1.025 (1.001-1.035)
--- NOTE | 2023-03-11 15:28 | XR ---
EXAMINATION TYPE: XR chest 2V DATE OF EXAM: 03/11/2023 COMPARISON: NONE TECHNIQUE: PA and lateral views submitted. HISTORY: WEAKNESS AND PAIN. FINDINGS: Post surgical changes right shoulder and cervical spine. Diffuse osteopenia. There is blunting of vamshi ateral costophrenic angles with basilar subsegmental consolidation but no overt failure. Heart size n ormal. Suspect a hiatal hernia. No pneumothorax. Hypertrophic and degenerative changes spine. Surgica l clips in the right upper quadrant. IMPRESSION: 1. Bilateral lower lobe infiltrate and small effusion.
[2023-03-11 15:32] LABS: Ketones,Urine 2+ (Negative)
[2023-03-11] MEDS ORDERED: METOCLOPRAMIDE 5 MG/ML 2 ML VIAL IVP STA (16:07)
[2023-03-11] MEDS ORDERED: AZITHROMYCIN 500 MG in SODIUM CHLORIDE 0.9% 250 ML IVPB STA (16:11)
[2023-03-11] MEDS ORDERED: ALBUTEROL NEBULIZED 2.5 MG/3 ML INHALATION PRN (16:11)
[2023-03-11] MEDS ORDERED: PNEUMONIA PROTOCOL UTILIZED 1 EACH MISC PO PRN (16:11)
[2023-03-11] MEDS ORDERED: tiZANidine 4 MG TAB PO PRN (18:31)
[2023-03-11] MEDS: FUROSEMIDE 20 MG TAB PO SCH (19:57)
[2023-03-11] MEDS: ATORVASTATIN 10 MG TAB PO SCH (19:57)
[2023-03-11] MEDS: DOCUSATE 100 MG CAP PO SCH (19:57)
[2023-03-11] MEDS: PREGABALIN 75 MG CAP PO SCH (19:57)
[2023-03-11] MEDS ORDERED: ACETAMINOPHEN TAB 325 MG TAB PO PRN (20:07)
[2023-03-11] MEDS: ONDANSETRON 4 MG/2 ML VIAL IVP PRN (20:11)
[2023-03-11] MEDS: HYDROcodone/APAP 10-325MG 1 EACH TAB PO PRN (20:47)
[2023-03-12] MEDS: HYDROcodone/APAP 10-325MG 1 EACH TAB PO PRN ×4 (03:50→21:10)
[2023-03-12] MEDS: ONDANSETRON 4 MG/2 ML VIAL IVP PRN (06:47)
[2023-03-12] MEDS ORDERED: IPRATROPIUM-ALBUTEROL 3 ML NEB INHALATION PRN (07:17)
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
[2023-03-12] MEDS ORDERED: IPRATROPIUM-ALBUTEROL 3 ML NEB INHALATION SCH (08:00)
[2023-03-12] MEDS: SYMBICORT 160-4.5 MCG INHALER INHALATION SCH ×2 (08:07→22:04)
[2023-03-12] MEDS: ALBUTEROL HFA INHALER INHALATION SCH ×4 (08:11→22:04)
[2023-03-12] MEDS: TIOTROPIUM 2.5 MCG INHALER INHALATION SCH (08:11)
--- NOTE | 2023-03-12 08:44 | CT ---
EXAMINATION TYPE: CT chest angio for PE DATE OF EXAM: 03/12/2023 COMPARISON: CTA chest November 12, 2022 HISTORY: SOB, COVID positive CT DLP: 329.4 mGycm. Automated Exposure Control for Dose Reduction was Utilized. CONTRAST: CTA scan of the thorax is performed with IV Contrast, patient injected with 100 mL of Isovue 300, pul monary embolism protocol. MIP Images are created on CT scanner and reviewed. FINDINGS: LUNGS: Mild/moderate bibasilar linear scarring and/or atelectasis is redemonstrated. There is some de pendent atelectasis in the bilateral lower lobes. There is mild focal linear scarring in the left mid lung laterally redemonstrated.. No suspicious focal consolidation or groundglass opacity. There is no significant pleural effusion or pneumothorax seen. The tracheobronchial tree is patent. Surgery o verlying the right hemidiaphragm with linear density is once again visualized. MEDIASTINUM: There is satisfactory enhancement of the pulmonary artery and its branches, there is no CT evidence for pulmonary embolism. Enlarged main pulmonary artery of 3.5 cm is consistent with unde rlying pulmonary artery hypertension. There are no greater than 1 cm hilar or mediastinal lymph nodes . No cardiomegaly or pericardial effusion is seen. Moderate left atrial dilatation is noted. Martinez ry artery calcification is again seen. OTHER: Surgical changes near gastroesophageal junction is redemonstrated. Debris filled distal esopha haydee just above suture is noted axial image 100. Cholecystectomy clips are again seen. Metallic hardwa re of right shoulder surgery is partially imaged causing streak artifact similar to prior. IMPRESSION: 1. No CT evidence for acute pulmonary embolism. 2. Mild to moderate bibasilar linear scarring and/or atelectasis redemonstrated. Focal mild left mid lung linear scarring. No suspicious acute pulmonary process.
[2023-03-12] MEDS: methylPREDNISolone SOD SUCCI 40 MG/ML 1 ML VIAL IV SCH ×2 (09:32→15:51)
[2023-03-12] MEDS: LEVOTHYROXINE 112 MCG TAB PO SCH (09:32)
[2023-03-12] MEDS: ASPIRIN 81 MG PO SCH (09:33)
[2023-03-12] MEDS: METOPROLOL TARTRATE 12.5 MG TAB PO SCH (09:33)
[2023-03-12] MEDS: ENOXAPARIN 40 MG/0.4 ML SYRINGE SQ SCH (09:33)
[2023-03-12] MEDS: DULoxetine HCL 60 MG CAPSULE.DR PO SCH (09:33)
[2023-03-12] MEDS: DOCUSATE 100 MG CAP PO SCH ×2 (09:33→21:04)
[2023-03-12] MEDS: PANTOPRAZOLE 40 MG TABLET PO SCH (09:33)
[2023-03-12] MEDS: PREGABALIN 75 MG CAP PO SCH ×3 (09:33→21:04)
[2023-03-12] MEDS: FUROSEMIDE 20 MG TAB PO SCH (09:33)
[2023-03-12] MEDS: AZITHROMYCIN 500 MG TAB PO SCH (09:33)
[2023-03-12] MEDS: BACITRACIN ZINC 500 UNIT/GM OINT 28.4 GM TUBE TOPICAL SCH (15:51)
[2023-03-12] MEDS: SODIUM CHLORIDE 0.9% 1,000 ML IV SCH ×2 (15:52→23:31)
--- NOTE | 2023-03-12 15:58 | XR ---
EXAMINATION TYPE: XR chest 1V portable DATE OF EXAM: 03/12/2023 COMPARISON: 03/11/2023 HISTORY: Cough TECHNIQUE: Single frontal view of the chest is obtained. FINDINGS: Retrocardiac density is stable from prior exam. There is elevation of the right hemidiaphr agm with bilateral subsegmental consolidation. Prosthetic right shoulder. Suspect underlying COPD. Th ere is diffuse osteopenia. No overt failure or pneumothorax. Surgical clips right upper quadrant comp atible with prior cholecystectomy. Pleural hyperdensity along the diaphragmatic surface may be relate d to patient's history of prior surgery. Correlate for prior diaphragmatic hernia. IMPRESSION: 1. 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 2. Basilar areas of subsegmental consolidation noted which atelectasis is favored over pneumonia rai elate clinically.
[2023-03-12 19:57] VITALS: RESP 16
[2023-03-12] MEDS: ATORVASTATIN 10 MG TAB PO SCH (21:04)
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
--- NOTE | 2023-03-12 22:24 | HP ---
HISTORY AND PHYSICAL CHIEF COMPLAINTS: Nausea, vomiting, diarrhea as well as pneumonia. HISTORY OF PRESENT ILLNESS: This 77-year-old woman with a past medical history of multiple medical issues including COPD, CHF, was not feeling well for the past several days. The patient had incessant nausea, vomiting, diarrhea. The patient was dehydrated. The patient came to [facility], found to have bilateral pneumonia, admitted for further evaluation and treatment. There is no history of any rigors or chills at this time. PAST MEDICAL HISTORY: Reviewed include COPD, CHF, rest of the history and rest of the chart is also reviewed. HOME MEDICATIONS: Reviewed include Zanaflex, dose and rest of the chart is also reviewed. ALLERGIES: Reviewed include oxycodone, rest of the allergies reviewed. FAMILY HISTORY: History of uterine cancer. SOCIAL HISTORY: Previous history of smoking. REVIEW OF SYSTEMS: A 14-point review is negative except as mentioned earlier. PHYSICAL EXAMINATION: VITAL SIGNS: Pulse is 94, blood pressure 122/72, and respirations 20. HEENT: Conjunctivae normal. Oral mucosa moist. NECK: No jugular venous distention. CARDIOVASCULAR: S1, S2 muffled. RESPIRATIONS: Bilateral scattered rhonchi and crackles. Expiratory wheezing also present. ABDOMEN: Soft, nontender. LEGS: No edema, no swelling. NERVOUS SYSTEM: Diffusely weak. SKIN: No ulcer, rash, bleeding. JOINTS: No active deforming arthropathy. LABORATORY DATA: Reviewed, D-dimer 0.78 and COVID-19 is positive. ASSESSMENT: 1. Acute bilateral pneumonia, possibly secondary to COVID-19 infection and acute COVID- 19 infection. 2. History of chronic obstructive pulmonary disease. 3. Congestive heart failure. 4. Cerebrovascular accident, transient ischemic attack. 5. Multiple medical issues. RECOMMENDATIONS AND DISCUSSION: This 77-year-old woman presented with multiple complex medical issues, we will monitor the patient closely, intensive bronchodilators, empiric antibiotics initiated. I would also recommend infectious disease and pulmonary consultations as well. The patient might be a candidate for remdesivir. The patient has taken 2 initial shots and booster as well, however, prognosis extremely guarded. Further recommendations to follow. Recommended respiratory isolation. See orders for further details. I would also recommend Lovenox as well. MMODL / IJN: [id number] /
[2023-03-13] MEDS: BACITRACIN ZINC 500 UNIT/GM OINT 28.4 GM TUBE TOPICAL SCH (00:06)
[2023-03-13] MEDS: methylPREDNISolone SOD SUCCI 40 MG/ML 1 ML VIAL IV SCH ×2 (00:06→08:59)
[2023-03-13] MEDS: HYDROcodone/APAP 10-325MG 1 EACH TAB PO PRN (06:09)
[2023-03-13 07:24] VITALS: BP 107/68; PULSE 69; TEMP 98.6
[2023-03-13] MEDS: ALBUTEROL HFA INHALER INHALATION SCH ×2 (07:50→11:01)
[2023-03-13] MEDS: TIOTROPIUM 2.5 MCG INHALER INHALATION SCH (07:50)
[2023-03-13] MEDS: SYMBICORT 160-4.5 MCG INHALER INHALATION SCH (07:50)
[2023-03-13] MEDS: DOCUSATE 100 MG CAP PO SCH (08:59)
[2023-03-13] MEDS: ASPIRIN 81 MG PO SCH (08:59)
[2023-03-13] MEDS: METOPROLOL TARTRATE 12.5 MG TAB PO SCH (08:59)
[2023-03-13] MEDS: ENOXAPARIN 40 MG/0.4 ML SYRINGE SQ SCH (08:59)
[2023-03-13] MEDS: PANTOPRAZOLE 40 MG TABLET PO SCH (08:59)
[2023-03-13] MEDS: DULoxetine HCL 60 MG CAPSULE.DR PO SCH (08:59)
[2023-03-13] MEDS: AZITHROMYCIN 500 MG TAB PO SCH (09:00)
[2023-03-13] MEDS: PREGABALIN 75 MG CAP PO SCH (09:00)
[2023-03-13] MEDS: LEVOTHYROXINE 112 MCG TAB PO SCH (09:00)
[2023-03-13] MEDS ORDERED: FUROSEMIDE 20 MG TAB PO SCH (09:00)
[2023-03-13] MEDS: ONDANSETRON 4 MG/2 ML VIAL IVP PRN (09:06)
--- NOTE | 2023-03-13 13:14 | P.PN ---
Subjective Progress Note Date: 03/13/23 I am seeing this patient in new consultation today 03/12/2023 on the general medical floor for suspected bilateral pneumonia. Patient is a 77-year-old with past medical history of severe COPD with an FEV1 50% of predicted, chronic oxygen dependence on 4 L nasal cannula, congestive heart failure, previous myocardial infarction, mitral valve regurgitation, hyperlipidemia, hypertension, CVA, right hemidiaphragm, pulmonary hypertension, hypothyroidism, coronary artery disease, restless leg syndrome, fibromyalgia, ex-smoker. Patient reports recent COVID-19 infection diagnosed approximately 3 weeks ago with two home test. She has been vaccinated and boosted for COVID-19 with Levanta brand. Since then, she has been experiencing shortness of breath, generalized aches, subjective fever, and some nausea and vomiting for the past 4 days. She denies any cough or chest pain. She denies any significant abdominal pain, diarrhea, constipation, bloody bowel movements, hematemesis. [facility] her symptoms. Patient is currently sitting up in bed, on 4 L nasal cannula, in no acute distress. Chest x-ray on arrival showed a right hemidiaphragm, some chronic left basilar atelectasis or scarring, and a small left-sided effusion. Cannot rule out developing infiltrates. She was positive for COVID-19 again on arrival. Patient's CBC and CMP on arrival were essentially within normal limits. LFTs and pancreatic enzymes within normal limits. Patient's d-dimer is elevated at 0.78. Will follow-up with chest CTA. Patient is currently on a combination of azithromycin and Rocephin for empiric antibiotic coverage. Afebrile. Vital signs are stable. The patient is seen today 03/13/2023 in follow-up on the regular medical floor. She is currently sitting up in a chair. Awake and alert in no acute distress. Denies any worsening shortness of breath, cough or congestion. Currently on [address] angiogram revealed no evidence of pulmonary embolism. There was mild bibasilar lineal scarring/atelectasis. Known history of right hemidiaphragm elevation. Blood cultures reveal no growth to date. Pro- calcitonin was 0.05. She is continued on Symbicort, IV Solu-Medrol, albuterol HFA. Antibiotics in the form of ceftriaxone and azithromycin. Lovenox for DVT prophylaxis. Objective - Vital Signs Vital signs: Vital Signs Temp 98.6 F 03/13/23 06:45 Pulse 69 03/13/23 06:45 Resp 16 03/13/23 06:45 BP 107/68 03/13/23 06:45 Pulse Ox 98 03/13/23 07:55 FiO2 Intake & Output 03/12/23 03/13/23 03/13/23 18:59 06:59 18:59 Output Total 350 1300 Balance -350 -1300 Output: Urine 350 1300 Other: Voiding Method External Catheter External Catheter - Exam GENERAL EXAM: Alert, pleasant 77-year-old female, up in a chair at the bedside, on 4 L nasal cannula, comfortable in no apparent distress. HEAD: Normocephalic. EYES: Normal reaction of pupils, equal size. NOSE: Clear with pink turbinates. THROAT: No erythema or exudates. NECK: No masses, no JVD. CHEST: No chest wall deformity. LUNGS: Equal air entry with no crackles, wheeze, rhonchi or dullness. CVS: S1 and S2 normal with no audible murmur, regular rhythm. ABDOMEN: No hepatosplenomegaly, normal bowel sounds, no guarding or rigidity. SPINE: No scoliosis or deformity SKIN: No rashes CENTRAL NERVOUS SYSTEM: No focal deficits, tone is normal in all 4 extremities. EXTREMITIES: There is no peripheral edema. No clubbing, no cyanosis. Peripheral pulses are intact. - Labs CBC & Chem 7: 03/11/23 13:11 03/11/23 13:11 Labs: Microbiology - Last 24 Hours (Table) 03/11/23 13:10 Blood Culture - Preliminary Blood 03/11/23 13:05 Blood Culture - Preliminary Blood Assessment and Plan Assessment: Acute exacerbation of patient's moderate to severe COPD possibly related to superimposed community acquired pneumonia. Patient was positive for COVID-19 reportedly 3 weeks ago, diagnosed with home test 2. Patient is still positive for COVID-19 on this admission. Patient's symptoms reportedly improved, and then progressively worsened. Pro-calcitonin normal at 0.05. Antibiotics discontinued. Chronic hypoxic respiratory failure, normally maintained on 4 L nasal cannula at home Possible acute gastroenteritis Coronary artery disease with previous myocardial infarction Primary hypertension Hyperlipidemia Chronic diastolic heart failure Mitral valve regurgitation History of CVA Right hemidiaphragm Pulmonary hypertension Restless leg syndrome Fibromyalgia Ex-smoker Plan: The patient was seen and evaluated Medications reviewed Stable and back to her baseline Has home oxygen at 4 L Discontinue antibiotics Progress tone and within normal limits Continue her home pulmonary medications Follow-up in the office in 1 week I have personally seen and examined the patient, performed the documentation and the assessment and plan as written. Number of minutes spent on the visit: 10.
--- NOTE | 2023-03-15 07:51 | P.DS ---
Providers Date of admission: 03/11/23 16:11 Expected date of discharge: 03/13/23 Attending physician: Nora Negron Consults: 03/11/23 16:11 Consult Physician Routine Consulting Provider: Jan Faustin Consult Reason/Comments: Bilateral pneumonia Do you want consulting provider notified?: Yes 03/12/23 13:13 Consult Physician Routine Consulting Provider: Linden Hermosillo Consult Reason/Comments: pneumonia, covid Do you want consulting provider notified?: Yes Primary care physician: Ajay Ulrich Hospital Course: Final diagnosis Acute bilateral pneumonia, possibly secondary to COVID-19 infection and acute Covid 19 infection History of chronic obstructive pulmonary disease, stable Acute on chronic hypoxic respiratory failure, secondary to above, chronically wears 4 L outpatient Congestive heart failure history CVA/TIA history Discharge disposition Patient is being discharged in a stable condition with guarded prognosis to home. Patient will follow-up with Dr. Ulrich in the outpatient setting upon discharge. Patient is to continue with steroid taper on discharge and outpatient follow-up with pulmonary as scheduled. Total time taken is greater than 35 minutes. Hospital course This is a 77-year-old female who was recently admitted with increased cough and shortness of breath being monitored closely for possible acute bilateral pneumonia secondary to COVID-19 infection. Patient chronically wears oxygen outpatient with a past medical history of COPD and was evaluated by pulmonary and infectious disease. Patient was continued on steroids and will continue taper and recommend outpatient follow-up with pulmonary on discharge. Patient has been cleared by consultations. Please refer to consultation notes for further HPI. Patient reports feeling improved and like to go home. Currently no reports of chest pain, shortness of breath, or palpitations. Patient is afebrile. No reports of nausea or vomiting and patient is tolerating diet. Patient will be discharged home today. Guarded prognosis. Physical exam: Gen: This is a 77-year-old female who is awake, alert and oriented 3, thin built, elderly appearing HEENT: Head is atraumatic, normocephalic. Pupils equal, round. Sclerae is anicteric. NECK: Supple. No JVD. No lymphadenopathy. No thyromegaly. LUNGS: Diminished breath sounds bilaterally with some scattered rhonchi. No intercostal retractions. HEART: S1, S2 are muffled ABDOMEN: Soft. Bowel sounds are present. No masses. No tenderness. EXTREMITIES: No pedal edema. No calf tenderness. NEUROLOGICAL: Patient is awake, alert and oriented x3. Cranial nerves 2 through 12 are grossly intact. Please refer to medication reconciliation sheet for a list of medications. The impression and plan of care has been dictated by Jaymie Oseguera, Nurse Practitioner as directed. Dr. Jamil MD I have performed a history and examination and MDM of this patient, discussed the same with the dictator, and agree with the dictator's assessment and plan as written ,documented as a scribe. Based on total visit time, I have performed more than 50% of the visit. Patient Condition at Discharge: Fair Plan - Discharge Summary Discharge Rx Participant: Yes New Discharge Prescriptions: New Bacitracin Zinc Oint 1 applic TOPICAL TID #1 each methylPREDNISolone Dose Pack [Medrol Dose Pack] 4 mg PO DIRECTED #1 packet Tiotropium 2.5 Mcg/Puff [Spiriva Respimat 2.5 Mcg] 2 puff INHALATION RT-DAILY 30 Days #1 each Acetaminophen Tab [Tylenol] 650 mg PO Q6HR PRN tab PRN Reason: Fever and/ or Mild Pain Multivitamins, Thera [Multivitamin] 1 tab PO DAILY #30 tablet Budesonide-Formot 160-4.5 Mcg [Symbicort 160-4.5 Mcg Inhaler] 2 puff INHALATION RT-BID 30 Days #1 each Albuterol Inhaler [Ventolin Hfa Inhaler] 2 puff INHALATION RT-QID 30 Days #1 each Continue Simvastatin [Zocor] 20 mg PO HS rOPINIRole HCL [Requip] 3 mg PO TID Levothyroxine Sodium [Synthroid] 112 mcg PO AC-BRKFST Pregabalin [Lyrica] 75 mg PO TID tiZANidine [Zanaflex] 2 mg PO BID Potassium Chloride ER [K-Dur 10] 10 meq PO DAILY Ipratropium-Albuterol Nebulize [Duoneb 0.5 mg-3 mg/3 ml Soln] 3 ml INHALATION RT-QID Docusate Sodium [Dok] 100 mg PO BID acetaZOLAMIDE [Diamox] 125 mg PO BID DULoxetine HCL [Cymbalta] 60 mg PO DAILY Diclofenac Sodium Gel [Voltaren Gel] 1 gm TOPICAL BID PRN PRN Reason: Pain Pantoprazole [Protonix] 40 mg PO DAILY Aspirin 81 mg PO DAILY 30 Days #30 chew Metoprolol Tartrate [Lopressor] 12.5 mg PO DAILY HYDROcodone/APAP 10-325MG [Callands 10-325] 1 tab PO QID Ondansetron [Zofran] 4 mg PO Q8HR PRN PRN Reason: Nausea Changed Furosemide [Lasix] 20 mg PO DAILY #0 Discharge Medication List Simvastatin [Zocor] 20 mg PO HS 11/10/14 [History] rOPINIRole HCL [Requip] 3 mg PO TID 01/16/17 [History] Levothyroxine Sodium [Synthroid] 112 mcg PO AC-BRKFST 06/04/17 [History] Pantoprazole [Protonix] 40 mg PO DAILY 05/01/21 [History] Aspirin 81 mg PO DAILY 30 Days #30 chew 05/03/21 [Rx] Pregabalin [Lyrica] 75 mg PO TID 09/08/21 [History] Ipratropium-Albuterol Nebulize [Duoneb 0.5 mg-3 mg/3 ml Soln] 3 ml INHALATION RT-QID 11/12/22 [History] Potassium Chloride ER [K-Dur 10] 10 meq PO DAILY 11/12/22 [History] tiZANidine [Zanaflex] 2 mg PO BID 11/12/22 [History] Docusate Sodium [Dok] 100 mg PO BID 01/17/23 [History] HYDROcodone/APAP 10-325MG [Callands 10-325] 1 tab PO QID 01/17/23 [History] Metoprolol Tartrate [Lopressor] 12.5 mg PO DAILY 01/17/23 [History] Ondansetron [Zofran] 4 mg PO Q8HR PRN 01/17/23 [History] DULoxetine HCL [Cymbalta] 60 mg PO DAILY 02/26/23 [History] acetaZOLAMIDE [Diamox] 125 mg PO BID 02/26/23 [History] Diclofenac Sodium Gel [Voltaren Gel] 1 gm TOPICAL BID PRN 03/11/23 [History] Acetaminophen Tab [Tylenol] 650 mg PO Q6HR PRN tab 03/13/23 [Rx] Albuterol Inhaler [Ventolin Hfa Inhaler] 2 puff INHALATION RT-QID 30 Days #1 each 03/13/23 [Rx] Bacitracin Zinc Oint 1 applic TOPICAL TID #1 each 03/13/23 [Rx] Budesonide-Formot 160-4.5 Mcg [Symbicort 160-4.5 Mcg Inhaler] 2 puff INHALATION RT-BID 30 Days #1 each 03/13/23 [Rx] Furosemide [Lasix] 20 mg PO DAILY #0 03/13/23 [Rx] Multivitamins, Thera [Multivitamin] 1 tab PO DAILY #30 tablet 03/13/23 [Rx] Tiotropium 2.5 Mcg/Puff [Spiriva Respimat 2.5 Mcg] 2 puff INHALATION RT-DAILY 30 Days #1 each 03/13/23 [Rx] methylPREDNISolone Dose Pack [Medrol Dose Pack] 4 mg PO DIRECTED #1 packet 03/13/23 [Rx] Follow up Appointment(s)/Referral(s): Jan Faustin MD [STAFF PHYSICIAN] - 1 Week (Office closed for lunch, please call and make an appointment) Ajay Ulrich DO [Primary Care Provider] - 03/20/23 11:45 am [facility] Visiting Nurse, [NON-STAFF] - As Needed Patient Instructions/Handouts: Pneumonia (DC) Activity/Diet/Wound Care/Special Instructions: Activity Limited until follow-up Follow-up with primary care provider on discharge follow-up outpatient with pulmonary in the next 1-2 weeks Encourage fluids and rest Monitor for fevers or worsening shortness of breath Continue inhalers as prescribed Continue with isolation precautions Discharge Disposition: HOME WITH HOME HEALTH SERVICES
== END 2023-03-13 13:09 | disposition home health service (06) | DRG 177 ==
LOC: EC 12:44 → 4SSUR 16:11
PROVIDERS: ADMIT Hospitalist; ATTEND Hospitalist
DX: U07.1 COVID-19 (principal); J12.82 Pneumonia due to coronavirus disease 2019; J96.21 Acute and chronic respiratory failure with hypoxia; A08.39 Other viral enteritis; I50.32 Chronic diastolic (congestive) heart failure; J44.1 Chronic obstructive pulmonary disease with (acute) exacerbation; I27.20 Pulmonary hypertension, unspecified; J98.6 Disorders of diaphragm; I11.0 Hypertensive heart disease with heart failure; I69.392 Facial weakness following cerebral infarction; I69.398 Other sequelae of cerebral infarction; E86.0 Dehydration; E89.0 Postprocedural hypothyroidism; I34.0 Nonrheumatic mitral (valve) insufficiency; G25.81 Restless legs syndrome; F32.A Depression, unspecified; I25.10 Atherosclerotic heart disease of native coronary artery without angina pectoris; E78.5 Hyperlipidemia, unspecified; I25.2 Old myocardial infarction; M79.7 Fibromyalgia; K57.90 Diverticulosis of intestine, part unspecified, without perforation or abscess without bleeding; Z99.81 Dependence on supplemental oxygen; Z79.82 Long term (current) use of aspirin; Z79.891 Long term (current) use of opiate analgesic; Z79.890 Hormone replacement therapy; Z79.899 Other long term (current) drug therapy; Z87.891 Personal history of nicotine dependence; Z96.611 Presence of right artificial shoulder joint; Z96.651 Presence of right artificial knee joint; Z98.1 Arthrodesis status; Z88.1 Allergy status to other antibiotic agents; Z88.5 Allergy status to narcotic agent; Z88.2 Allergy status to sulfonamides; Z88.8 Allergy status to other drugs, medicaments and biological substances
CPT/HCPCS: 36415; 71045; 71046; 71275; 80053; 81003; 82150; 83615; 83690; 83735; 84145; 85025; 85379; 87449; 87636; 94640; 94760; 96365; 96375; 99285

== ENCOUNTER → 2023-07-18 | Outpatient (CLI) | payer MEDICARE | END | disposition home or self-care (01) | LOC: LABWHC1 11:01 | PROVIDERS: ATTEND Emergency Medicine | DX: E87.6 Hypokalemia (principal) | CPT/HCPCS: 36415; 83735; 84132 ==

== ENCOUNTER 2024-02-18 23:02 | Emergency (ER) | payer MEDICARE ==
[2024-02-18 23:10] VITALS: TEMP 99.7
[2024-02-19] MEDS: ACETAMINOPHEN TAB 500 MG TAB PO STA (00:20)
[2024-02-19] MEDS: HYDROcodone/APAP 10-325MG 1 EACH TAB PO ONE (01:16)
[2024-02-19 01:21] VITALS: RESP 18
--- NOTE | 2024-02-19 01:31 | CT ---
EXAM: CT Head Without Intravenous Contrast CLINICAL HISTORY: ITS.REASON CT Reason: s/p fall (+) LOC on baby asa TECHNIQUE: Axial computed tomography images of the head/brain without intravenous contrast. CTDI is 45.3 mGy and DLP is 1051 mGy-cm. This CT exam was performed using one or more of the following dose reduction techniques: automated exposure control, adjustment of the mA and/or kV according to patient size, and/or use of iterative reconstruction technique. COMPARISON: CT Head dated 09/08/21 FINDINGS: Brain: Mild volume loss with prominent ventricles and sulci. Mild periventricular matter hypoattenuation likely reflects chronic small vessel disease. No hemorrhage. Ventricles: See above. Bones/joints: Unremarkable. No acute fracture. Soft tissues: Unremarkable. Sinuses: Unremarkable as visualized. No acute sinusitis. Mastoid air cells: Unremarkable as visualized. No mastoid effusion. Orbits: Bilateral intraocular lens implants. IMPRESSION: No acute findings in the head/brain. EXAM: CT Cervical Spine Without Intravenous Contrast CLINICAL HISTORY: ITS.REASON CT Reason: s/p fall (+) LOC on baby asa TECHNIQUE: Axial computed tomography images of the cervical spine without intravenous contrast. CTDI is 10.1 mGy and DLP is 320.3 mGy-cm. This CT exam was performed using one or more of the following dose reduction techniques: automated exposure control, adjustment of the mA and/or kV according to patient size, and/or use of iterative reconstruction technique. COMPARISON: CT Cervical Spine dated 03/14/2014 CT C-spine, MRI C-spine dated 08/29/2018, X-ray C-spine dated 06/23/2018 FINDINGS: Vertebrae: See below. Discs/spinal canal/neural foramina: Postoperative changes similar to the priors. C3-C5 anterior cervical discectomy and fusion plates and screws. Anterior fusion hardware at C6-C7. Posterior fusion and laminectomies from C5-C7. Hardware and alignment similar to the 2018 studies. No spinal canal stenosis. Other bones/joints: Right shoulder prosthesis on the cut off saw set up operator image. Soft tissues: Unremarkable. Lung apices: Mild linear atelectasis/scarring in the upper lobes. IMPRESSION: 1. No evidence of acute fracture or malalignment. 2. Anterior and posterior cervical fusion hardware and alignment similar to the 2018 studies.
--- NOTE | 2024-02-19 01:40 | XR ---
EXAM: XR Chest, 2 Views CLINICAL HISTORY: ITS.REASON XR Reason: s/p fall pain TECHNIQUE: Frontal and lateral views of the chest. COMPARISON: XR Chest dated 10/24/23 FINDINGS: Lungs: Mild patchy atelectasis/airspace disease in the left mid to lower lung. Low lung volumes. Pleural space: Unremarkable. No pneumothorax. Heart: Mild cardiomegaly and central vascular congestion. Mediastinum: Unremarkable. Normal mediastinal contour. Bones/joints: Right reverse total shoulder arthroplasty. No acute fracture. IMPRESSION: 1. Mild cardiomegaly and central vascular congestion. 2. Mild patchy atelectasis/airspace disease in the left mid to lower lung.
--- NOTE | 2024-02-19 01:43 | XR ---
EXAM: XR Right Shoulder Complete, 2 or More Views CLINICAL HISTORY: ITS.REASON XR Reason: s/p fall pain TECHNIQUE: Two or more views of the right shoulder. COMPARISON: No relevant prior studies available. FINDINGS: Bones/joints: Right reverse total shoulder arthroplasty. Right lower lateral rib fracture deformities, age indeterminate. No dislocation. Soft tissues: Unremarkable. IMPRESSION: 1. No evidence of acute fracture or dislocation. 2. Right reverse total shoulder arthroplasty. 3. Right lower lateral rib fracture deformities, age indeterminate.
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
[2024-02-19 03:11] VITALS: BP 100/60; PULSE 74
== END 2024-02-19 02:38 | disposition home or self-care (01) ==
LOC: EC 23:02
DX: S22.31XA Fracture of one rib, right side, initial encounter for closed fracture (principal); Z87.891 Personal history of nicotine dependence; Z88.2 Allergy status to sulfonamides; Z88.1 Allergy status to other antibiotic agents; Z88.8 Allergy status to other drugs, medicaments and biological substances; Z91.09 Other allergy status, other than to drugs and biological substances; W18.09XA Striking against other object with subsequent fall, initial encounter
CPT/HCPCS: 70450; 71046; 72125; 99285

== ENCOUNTER 2024-02-24 06:09 | Day surgery (SDC) | payer MEDICARE ==
[~2024-02-24 06:09] MED LIST changes: +ALPRAZolam 0.25 MG TAB PO PRN; +ALPRAZolam 0.5 MG TAB PO PRN; +HEPARIN SODIUM,PORCINE (1 ML) 2,500 UNIT in SODIUM CHLORIDE 0.9% 250 ML IRRIGATION PRN; +HEPARIN SODIUM,PORCINE 10,000 UNIT in SODIUM CHLORIDE 0.9% 1,000 ML IRRIGATION PRN; -LACTATED RINGERS 1,000 ML IV SCH; +NITROGLYCERIN SL TABS 0.4 MG TAB SUBLINGUAL PRN
[2024-02-24] MEDS: SODIUM CHLORIDE 0.9% 500 ML 500 ML IV ONE (06:44)
[2024-02-24] MEDS ORDERED: ATORVASTATIN 80 MG TAB PO ONE (07:00)
[2024-02-24] MEDS ORDERED: ASPIRIN 325 MG TAB PO ONE (07:00)
[2024-02-24 07:03] VITALS: RESP 16; TEMP 98.5
[2024-02-24] MEDS ORDERED: fentaNYL (PF) 50 MCG/ML 2 ML AMP ONE (07:27)
[2024-02-24] MEDS: BENZOCAINE SPRAY 1 CAN TOPICAL ONE (07:35)
[2024-02-24] MEDS: MIDAZOLAM 2 MG/2 ML VIAL IVP ONE (07:37)
[2024-02-24] MEDS: fentaNYL (PF) 50 MCG/ML 2 ML AMP IVP ONE (07:37)
--- NOTE | 2024-02-24 07:59 | P.PCN ---
Date of Procedure: 02/24/24 Description of Procedure: Indication: Mitral regurgitation Procedure Description: After explaining the procedure to the patient, it's risk and complications, blood pressure, heart rate and O2 saturation were monitored. The throat was sprayed with Cetacaine. Patient received 2 mg intravenous Versed, 50 mcg intravenous fentanyl. The probe was introduced into the esophagus without difficulty. Images were obtained. Following that, the probe was removed. There was no immediate complication. Findings: Left atrial size is dilated, left atrial appendage is normal. Left ventricular size and systolic function are normal. The aortic valve is a tricuspid valve with fibrocalcific changes and preserved opening. Moderate mitral annulus calcification was noted. The tricuspid valve is normal. Pulmonic valve is normal. Descending thoracic aorta appears to be normal. No pericardial effusion was noted. Contrast bubble study revealed no shunting across the interatrial septum. Doppler: Pulse wave and color Doppler were obtained, and revealed severe mitral regurgitation with mild to moderate tricuspid regurgitation. The peak gradient across the mitral valve was 17 mmHg with a mean of 8 mmHg. Pressure half-time was 105. There was no shunting by color Doppler study. Conclusion: 1. Dilated left atrium with normal appearance of the left atrial appendage 2. Normal ventricle size and systolic function 3. Mitral annulus calcification with severe mitral regurgitation and moderate mitral stenosis 4. Mild to moderate tricuspid regurgitation 5. No shunting across the interatrial septum
[2024-02-24] MEDS ORDERED: SODIUM CHLORIDE 0.9% 1,000 ML IV SCH (08:00)
[2024-02-24] MEDS ORDERED: ISOSORBIDE MONONITRATE ER 15 MG TAB PO SCH (09:00)
[2024-02-24] MEDS ORDERED: METOPROLOL SUCCINATE (ER) 25 MG TAB.ER.24H PO SCH (09:00)
[2024-02-24] MEDS ORDERED: POTASSIUM CHLORIDE ER 10 MEQ TAB.ER.PRT PO SCH (09:00)
[2024-02-24] MEDS ORDERED: SPIRONOLACTONE 25 MG TAB PO SCH (09:00)
[2024-02-24] MEDS ORDERED: ROPINIROLE HCL 3 MG PO SCH (09:00)
[2024-02-24] MEDS ORDERED: BUMETANIDE 1 MG TAB PO SCH (09:00)
[2024-02-24] MEDS ORDERED: PREGABALIN 75 MG CAP PO SCH (09:00)
[2024-02-24] MEDS ORDERED: PANTOPRAZOLE 40 MG TABLET PO SCH (09:00)
[2024-02-24] MEDS ORDERED: NON FORMULARY DRUG (Empagliflozin [Jardiance] 10 MG Tablet) PO SCH (09:00)
[2024-02-24 09:47] VITALS: BP 103/58; PULSE 90
[2024-02-24] MEDS ORDERED: NON FORMULARY DRUG (Simvastatin [Zocor] 20 MG Tablet) PO SCH (21:00)
[2024-02-25] MEDS ORDERED: ASPIRIN 81 MG PO SCH (09:00)
== END 2024-02-24 09:32 | disposition home or self-care (01) ==
LOC: CATHCVL 06:09
PROVIDERS: ATTEND Internal Medicine Interventional Cardiology
DX: I08.1 Rheumatic disorders of both mitral and tricuspid valves (principal); I25.10 Atherosclerotic heart disease of native coronary artery without angina pectoris; I11.0 Hypertensive heart disease with heart failure; I50.32 Chronic diastolic (congestive) heart failure; E78.5 Hyperlipidemia, unspecified; J44.9 Chronic obstructive pulmonary disease, unspecified; Z79.51 Long term (current) use of inhaled steroids; Z79.899 Other long term (current) drug therapy
CPT/HCPCS: 93312; 93320; 93325; J2250; J3010

== ENCOUNTER 2024-10-30 01:07 | Inpatient (IN) | payer MEDICARE ==
[2024-10-30] MEDS: IPRATROPIUM-ALBUTEROL 3 ML NEB INHALATION STA ×2 (01:10→01:12)
[2024-10-30] MEDS: SODIUM CHLORIDE 0.9% 500 ML 250 ML IV STA (01:15)
[2024-10-30] MEDS: methylPREDNISolone SOD SUCCI 125 MG/2 ML VIAL IV STA (01:24)
[2024-10-30] MEDS: LORazepam 2 MG/ML INJ IV STA ×4 (01:25→02:23)
[2024-10-30] MEDS: MAGNESIUM SULFATE-D5W PMX 1 GM in DEXTROSE/WATER 1 100ML.BAG IVPB STA (01:25)
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
--- NOTE | 2024-10-30 01:50 | XR ---
EXAMINATION TYPE: XR chest 1V portable DATE OF EXAM: 10/30/2024 COMPARISON: Chest x-ray 03/06/2024 CLINICAL INDICATION: Female, 79 years old with history of genny; TECHNIQUE: Single frontal view of the chest is obtained. FINDINGS: Surgical change right shoulder is partially imaged. There is surgical change right clavicl e now present. Persistent mild cardiomegaly with increased opacities seen bilaterally. Osseous struct ures are demineralized. IMPRESSION: Mild cardiomegaly with suspected moderate bilateral edema. Correlate for CHF exacerbatio n/fluid overload state. [facility], , 10/30/2024 1:48 AM
[2024-10-30 01:56] LABS: VBG PH 7.27 (7.31-7.41)
[2024-10-30 01:58] LABS: Anisocytosis Moderate; Basophils # (A) 0.1 k/uL (0-0.2); Basophils % (A) 1 %; Eosinophils # (A) 0.1 k/uL (0-0.7); Eosinophils % (A) 1 %; HCT 29.5 % (34.0-46.0); HGB 8.4 gm/dL (11.4-16.0); Hypochromasia Marked; Lymphocytes # (A) 0.7 k/uL (1.0-4.8); Lymphocytes % (A) 8 %; MCH 21.7 pg (25.0-35.0); MCHC 28.5 g/dL (31.0-37.0); MCV 76.2 fL (80.0-100.0); Mean Platelet Volume 7.6; Microcytosis Moderate; Monocytes # (A) 0.4 k/uL (0-1.0); Monocytes % (A) 4 %; Neutrophils # (A) 8.1 k/uL (1.3-7.7); Neutrophils % (A) 86 %; Platelet Count 172 k/uL (150-450); Poikilocytosis Slight; RBC 3.87 m/uL (3.80-5.40); RDW 20.6 % (11.5-15.5); WBC 9.5 k/uL (3.8-10.6)
[2024-10-30] MEDS: FUROSEMIDE 10 MG/ML 4 ML VIAL IV STA (02:00)
[2024-10-30 02:04] LABS: INR 1.2 (<1.2); Partial Thromboplastin Time 25.9 sec (22.0-30.0); Prothrombin Time 12.4 sec (10.0-12.5)
[2024-10-30 02:39] LABS: ALT 36 U/L (4-34); AST 33 U/L (14-36); African American GFR (CKD) >90 (>60 ml/min/1.73 sqM); Albumin 3.9 g/dL (3.5-5.0); Alkaline Phosphatase 113 U/L (38-126); Anion Gap 6 mmol/L; Blood Urea Nitrogen 15 mg/dL (7-17); Calcium 8.5 mg/dL (8.4-10.2); Carbon Dioxide 27 mmol/L (22-30); Chloride 106 mmol/L (98-107); Glucose 162 mg/dL (74-99); Non-African American GFR(CKD) 78 (>60 ml/min/1.73 sqM); Potassium 3.9 mmol/L (3.5-5.1); Sodium 139 mmol/L (137-145); Total Bilirubin 1.1 mg/dL (0.2-1.3); Total Protein 6.4 g/dL (6.3-8.2)
[2024-10-30 02:47] LABS: NT-Pro-B-Type Natriuretic Pept 8220 pg/mL
[2024-10-30] MEDS: SODIUM CHLORIDE 0.9% 1,000 ML IV STA (03:19)
[2024-10-30] MEDS ORDERED: NALOXONE 0.4 MG/ML 1 ML VIAL IV PRN (03:26)
[2024-10-30 03:29] LABS: Appearance,Urine Clear (Clear); Bilirubin,Urine Negative (Negative); Blood,Urine Negative (Negative); Color,Urine Colorless; Glucose,Urine (UA) Negative (Negative); Ketones,Urine Negative (Negative); Leukocyte Esterase,Urine Negative (Negative); Nitrite,Urine Negative (Negative); PH, Urine 5.5 (5.0-8.0); Protein,Urine Negative (Negative); Specific Gravity,Urine 1.008 (1.001-1.035); Urobilinogen,Urine <2.0 mg/dL (<2.0)
[2024-10-30 03:45] LABS: Allen Test Performed? Yes
[2024-10-30 04:09] LABS: ABG PCO2 72 mmHg (35-45); ABG PH 7.21 (7.35-7.45)
[2024-10-30 04:10] LABS: ABG Base Excess 0.1 mmol/L; ABG HCO3 29 mmol/L (21-25); ABG Oxygen Saturation 93.9 % (94-97); ABG PO2 82 mmHg (83-108); ABG TCO2 31 mmol/L (19-24)
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
[2024-10-30] MEDS: IPRATROPIUM-ALBUTEROL 3 ML NEB INHALATION SCH (08:22)
[2024-10-30] MEDS: BUDESONIDE 1 MG/2 ML NEBU INHALATION SCH (08:22)
[2024-10-30] MEDS: FORMOTEROL FUMARATE 20 MCG/2 ML NEBU INHALATION SCH (08:23)
[2024-10-30] MEDS: methylPREDNISolone SOD SUCCI 40 MG/ML 1 ML VIAL IV SCH (08:39)
[2024-10-30] MEDS: FUROSEMIDE 10 MG/ML 4 ML VIAL IV SCH (08:39)
[2024-10-30] MEDS: HEPARIN SODIUM,PORCINE 5,000 UNIT/ML 1 ML VIAL SQ SCH (08:39)
[2024-10-30] MEDS: HALOPERIDOL LACTATE 5 MG/ML 1 ML VIAL IVP PRN (09:54)
[2024-10-30] MEDS: METOPROLOL SUCCINATE (ER) 25 MG TAB.ER.24H PO SCH (10:17)
[2024-10-30] MEDS: ASPIRIN 81 MG PO SCH (10:17)
[2024-10-30] MEDS: ISOSORBIDE MONONITRATE ER 30 MG TAB.ER.24H PO SCH (10:17)
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
[2024-10-30 12:09] LABS: Glucose,Whole Blood 159 mg/dL (70-110)
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
[2024-10-30] MEDS: PREGABALIN 75 MG CAP PO SCH (16:31)
[2024-10-30] MEDS: HYDROcodone/APAP 5-325MG 1 EACH TAB PO PRN (18:28)
[2024-10-30] MEDS ORDERED: NON FORMULARY DRUG (Simvastatin [Zocor] 20 MG Tablet) PO SCH (21:00)
[2024-10-30] MEDS: SENNOSIDES 8.6 MG TAB PO SCH (21:44)
[2024-10-30] MEDS: ATORVASTATIN 20 MG TAB PO SCH (21:44)
[2024-10-30] MEDS: methocarbamoL 500 MG TAB PO SCH (21:45)
[2024-10-30] MEDS: LACTATED RINGERS 500 ML IV ONE (21:52)
[2024-10-31 03:02] LABS: Anisocytosis Moderate; Basophils % (A) 0 %; Eosinophils % (A) 0 %; HCT 25.2 % (34.0-46.0); HGB 7.2 gm/dL (11.4-16.0); Hypochromasia Marked; Lymphocytes # (A) 0.3 k/uL (1.0-4.8); Lymphocytes % (A) 4 %; MCH 21.6 pg (25.0-35.0); MCHC 28.8 g/dL (31.0-37.0); MCV 75.1 fL (80.0-100.0); Mean Platelet Volume 7.6; Microcytosis Moderate; Monocytes # (A) 0.2 k/uL (0-1.0); Monocytes % (A) 2 %; Neutrophils % (A) 93 %; Platelet Count 157 k/uL (150-450); Poikilocytosis Slight; RBC 3.35 m/uL (3.80-5.40); RDW 20.8 % (11.5-15.5); WBC 7.5 k/uL (3.8-10.6)
[2024-10-31 03:13] LABS: ALT 30 U/L (4-34); AST 28 U/L (14-36); African American GFR (CKD) 69 (>60 ml/min/1.73 sqM); Albumin 3.4 g/dL (3.5-5.0); Alkaline Phosphatase 92 U/L (38-126); Anion Gap 1 mmol/L; Blood Urea Nitrogen 18 mg/dL (7-17); Calcium 8.3 mg/dL (8.4-10.2); Carbon Dioxide 37 mmol/L (22-30); Chloride 100 mmol/L (98-107); Glucose 112 mg/dL (74-99); Non-African American GFR(CKD) 60 (>60 ml/min/1.73 sqM); Potassium 3.7 mmol/L (3.5-5.1); Sodium 138 mmol/L (137-145); Total Protein 5.7 g/dL (6.3-8.2)
[2024-10-31] MEDS ORDERED: Potassium Replacement Protocol 1 EACH MISC MISCELLANE PRN (08:02)
[2024-10-31] MEDS: LEVOTHYROXINE 112 MCG TAB PO SCH (08:08)
[2024-10-31] MEDS: DULoxetine HCL 60 MG CAPSULE.DR PO SCH (08:10)
[2024-10-31] MEDS: FAMOTIDINE 20 MG TAB PO SCH (08:10)
[2024-10-31] MEDS: DAPAGLIFLOZIN PROPANEDIOL 5 MG TABLET PO SCH (08:10)
[2024-10-31] MEDS: PANTOPRAZOLE 40 MG TABLET PO SCH (08:12)
[2024-10-31] MEDS: SPIRONOLACTONE 25 MG TAB PO SCH (08:12)
[2024-10-31] MEDS: METOPROLOL SUCCINATE (ER) 50 MG TAB.ER.24H PO SCH (08:14)
[2024-10-31] MEDS: ISOSORBIDE MONONITRATE ER 30 MG TAB.ER.24H PO SCH (08:14)
[2024-10-31] MEDS ORDERED: ASPIRIN 81 MG PO SCH (09:00)
[2024-10-31] MEDS: POTASSIUM CHLORIDE 10 MEQ in WATER FOR INJECTION 1 100ML.BAG IVPB SCH (09:10)
--- NOTE | 2024-10-31 10:50 | P.PN ---
Subjective Progress Note Date: 10/31/24 Principal diagnosis: Respiratory failure. Pulmonary consult dated October 30, 2024. 79-year-old female with a history of COPD, CHF, chronic hypoxemic respiratory failure, valvular heart disease, hypertension, hyperlipidemia, and hypothyroidism, among other medical problems, who presents to the emergency department on October 30, at 1:00 in the morning complaining of difficulty breathing. She apparently has had difficulty breathing for a number of days, which has been progressive. EMS was called, they placed her on CPAP, and brought her in for further evaluation. In the emergency department, she was placed on BiPAP, given Ativan. When she received the Ativan, she became very agitated and delirious. Currently, the patient is seen in the emergency department, ER trauma bay #2. She is on BiPAP 14/6 and 70%. She is getting saline at 50 cc an hour. Blood gases show pO2 of 82, pCO2 of 72, pH is 7.21. The patient is quite agitated. She cannot provide any history. White count is 9.5, hemoglobin 8.4, hematocrit 29.5, platelet count 172,000. Coagulation studi es were normal. Sodium 139, potassium 3.9, chlorides 106, CO2 27, BUN 15, creatinine 0.74. The patient's lactic acid was 2.7. Troponin was less than 0.012. N-terminal proBNP was 8220. Urine was negative. Viral studies were negative. Chest x-ray was consistent with cardiomegaly, and CHF. Progress note dated October 31, 2024. 79-year-old female who we saw in the emergency department yesterday, for respiratory failure. Yesterday, she was on BiPAP, with settings of 14/6, and 70%. Today she is doing much better, and she is seen today on nasal O2 at 6 L. She is seen today in room 256. She is not receiving any IV fluids. The patient is stable could be considered for possible transfer to the general medical floor. White count 7.5, hemoglobin 7.2, hematocrit 25.2, platelet count normal. Sodium 138, potassium 3.7, chlorides 100, CO2 37, BUN 18, creatinine 0.93. Glucose is 112. Albumin is 3.4. Objective - Vital Signs Vital signs: Vital Signs Temp 98.2 F 10/31/24 08:00 Pulse 93 10/31/24 10:00 Resp 13 10/31/24 10:00 BP 92/58 10/31/24 10:00 Pulse Ox 98 10/31/24 10:00 FiO2 50 10/31/24 04:00 Intake & Output 10/30/24 10/31/24 10/31/24 18:59 06:59 18:59 Intake Total 500 100 Output Total 2345 1095 525 Balance -2345 -595 -425 Weight 56.9 kg Intake: Intake, IV Titration 500 100 Amount Lactated Ringers 500 ml @ 500 999 mls/hr IV .Q31M ONE Rx#:[id number] Potassium Chloride 10 meq 100 In Water For Injection 1 100ml.bag @ 100 mls/hr IVPB Q1H [facility] Rx#: [id number] Output: Urine 2345 1095 525 Female - External 350 Other: Voiding Method Indwelling Catheter Indwelling Catheter Indwelling Catheter # Voids 2 - Exam No acute distress, awake and alert, no respiratory distress, currently on nasal O2. HEENT examination is grossly unremarkable. Neck supple. Full range of motion. No adenopathy thyromegaly or neck vein distention. Cardiovascular examination reveals regular rhythm rate. S1-S2 normal. No S3 or S4. Heart sounds are distant. Lungs scattered rhonchi and crackles. No wheezes. Breath sounds are equal bilaterally. Abdomen soft without bowel sounds or masses. Extremities are intact. No cyanosis clubbing or edema. Skin is without rash or lesion. Neurologic examination is brief but nonfocal. - Labs CBC & Chem 7: 10/31/24 02:36 10/31/24 02:36 Labs: Abnormal Lab Results - Last 24 Hours (Table) 10/30/24 10/31/24 10/31/24 Range/Units 12:08 02:36 02:36 RBC 3.35 L (3.80-5.40) m/uL Hgb 7.2 L (11.4-16.0) gm/dL Hct 25.2 L (34.0-46.0) % MCV 75.1 L (80.0-100.0) fL MCH 21.6 L (25.0-35.0) pg MCHC 28.8 L (31.0-37.0) g/dL RDW 20.8 H (11.5-15.5) % Lymphocytes # 0.3 L (1.0-4.8) k/uL Carbon Dioxide 37 H (22-30) mmol/L BUN 18 H (7-17) mg/dL Glucose 112 H (74-99) mg/dL POC Glucose (mg/dL) 159 H (70-110) mg/dL Calcium 8.3 L (8.4-10.2) mg/dL Total Protein 5.7 L (6.3-8.2) g/dL Albumin 3.4 L (3.5-5.0) g/dL Assessment and Plan Assessment: Acute hypoxemic and hypercapnic respiratory failure, secondary to an acute exacerbation of CHF. History of chronic hypoxemic respiratory failure. History of hypertension. History of COPD. History of hyperlipidemia. History of hypothyroidism. Previous history of CVA. History of valvular heart disease. History of restless leg syndrome. Prior history of tobacco use. Plan: Plan dated October 30, 2024. The patient is seen in the emergency department, ER trauma bay #2. The patient remains on BiPAP, at 14/6 and 70%. She is on saline at 50 cc an hour. She is quite agitated. The patient may need to come to the intensive care unit for further monitoring and management. Blood gases show pO2 of 82, pCO2 of 72, and a pH of 7.21. The patient is poorly responsive. Labs, x-rays, and all medications are reviewed. Prognosis is guarded. We will continue to follow the patient, make recommendations along the way. Plan dated October 31, 2024. The patient was seen in the emergency department yesterday. Today she is seen in the intensive care unit, room 256. She was admitted with a diagnosis of acute Evoxac respiratory failure secondary to CHF. Today she is on 6 L. Yest erday she was on BiPAP. She is not receiving any IV fluids. Labs, x-rays, and all medications are reviewed. The patient could be transferred out of the intensive care unit. She has no specific complaints today. She is awake and alert. Is not short of breath, coughing, wheezing, producing any phlegm. She also denies chest pain or pressure. Time with Patient: Less than 30
[2024-10-31] MEDS: LACTATED RINGERS 500 ML IV ONE (13:12)
[2024-10-31 13:34] LABS: % Iron Saturation 3.16 (12.00-45.00); Ferritin 54.5 ng/mL (10.0-291.0)
--- NOTE | 2024-10-31 20:22 | P.PN ---
Subjective Progress Note Date: 10/31/24 81-year-old pleasant female well-known to me from her multiple hospitalizations at both hospitals came in with complaints of shortness of breath and hypoxemia patient is presently on BiPAP patient is found to have congestive heart failure with pulmonary edema on the chest x-ray BNP of 8500. Patient does have a history of congestive heart failure chronic diastolic function patient has valvular heart disease severe mitral regurgitation needing mitral valve replacement. Patient has an ABG which showed hypercapnic respiratory failure patient does have history of COPD as well does not smoke anywhere and uses around 2 to 3 L of oxygen at home patient has elevated lactate because of which patient is receiving fluids which I will discontinue at this time. She was agitated and delirious received the Ativan we will discontinue Ativan we will use Haldol as needed for agitation patient does have restless leg as well for which we will use Requip part of the reason why she is agitated. Patient has respiratory acidosis and metabolic acidosis. 10/31/2024 Patient is evaluated in follow-up in the ICU. Patient will be downgraded to the medical floor when a bed becomes available. She has been taken off of BiPAP did not wear overnight and currently down to 3 L of nasal cannula and saturating well. She reports improvement in shortness of breath not having any chest pain at this time. She continues on IV Lasix 40 mg every 12 hours. Additionally she remains on IV Solu-Medrol 40 mg every 12 hours. PHYSICAL EXAMINATION: GENERAL: The patient is alert and oriented x3, not in any acute distress. Thin built female HEENT: Pupils are round and equally reacting to light. EOMI. No scleral icterus. No conjunctival pallor. Normocephalic, atraumatic. No pharyngeal erythema. No thyromegaly. CARDIOVASCULAR: S1 and S2 present. No murmurs, rubs, or gallops. PULMONARY: Fairly good air entry to bilateral lung chan crackles bilateral lung chan no wheezing was appreciated ABDOMEN: Soft, nontender, nondistended, normoactive bowel sounds. No palpable organomegaly. MUSCULOSKELETAL: No joint swelling or deformity. EXTREMITIES: No cyanosis, clubbing, or pedal edema. NEUROLOGICAL: Gross neurological examination did not reveal any focal deficits. SKIN: No rashes. Assessment and plan -Acute on chronic hypoxic as well as hypercapnic respiratory failure: Secondary to congestive heart failure exacerbation and COPD exacerbation. -Congestive heart failure chronic diastolic function with acute exacerbation patient uses 20 mg of Lasix twice a day at home patient restarted on 40 mg IV twice daily with input and output monitoring. Aldactone -COPD with acute exacerbation systemic steroids no evidence of pneumonia at this time -Severe mitral regurgitation will need valve replacement but may not be a candidate because of her respiratory status and chronic respiratory failure requiring 3 L of oxygen -Hypertension -Sinus tachycardia patient is tachycardic as she did not receive her metoprolol today which will be started -CVA TIA in the past -Hyperlipidemia -Hypothyroidism -Progressive disease DVT prophylaxis: Subcutaneous Lovenox The impression and plan of care has been dictated by Katie Aguilar, Nurse Practitioner as directed. Dr. Trevor MD I have performed a history and physical examination and medical decision making of this patient, discussed the same with the dictator, and agree with the dictators assessment and plan as written, documented as a scribe. Based on total visit time, I have performed more than 50% of this visit. Objective - Vital Signs Vital signs: Vital Signs Temp 98.2 F 10/31/24 08:00 Pulse 93 10/31/24 09:10 Resp 14 10/31/24 09:00 BP 99/58 10/31/24 09:00 Pulse Ox 100 10/31/24 09:10 FiO2 50 10/31/24 04:00 Intake & Output 10/30/24 10/31/24 10/31/24 18:59 06:59 18:59 Intake Total 500 Output Total 2345 1095 325 Balance -2345 -595 -325 Weight 56.9 kg Intake: Intake, IV Titration 500 Amount Lactated Ringers 500 ml @ 500 999 mls/hr IV .Q31M ONE Rx#:[id number] Output: Urine 2345 1095 325 Female - External 350 Other: Voiding Method Indwelling Catheter Indwelling Catheter # Voids 2 - Labs CBC & Chem 7: 10/31/24 02:36 10/31/24 02:36 Labs: Abnormal Lab Results - Last 24 Hours (Table) 10/30/24 10/30/24 10/31/24 Range/Units 08:57 12:08 02:36 RBC 3.35 L (3.80-5.40) m/uL Hgb 7.2 L (11.4-16.0) gm/dL Hct 25.2 L (34.0-46.0) % MCV 75.1 L (80.0-100.0) fL MCH 21.6 L (25.0-35.0) pg MCHC 28.8 L (31.0-37.0) g/dL RDW 20.8 H (11.5-15.5) % Lymphocytes # 0.3 L (1.0-4.8) k/uL Carbon Dioxide (22-30) mmol/L BUN (7-17) mg/dL Glucose (74-99) mg/dL POC Glucose (mg/dL) 159 H (70-110) mg/dL Plasma Lactic Acid Andrews 2.5 H* (0.7-2.0) mmol/L Calcium (8.4-10.2) mg/dL Total Protein (6.3-8.2) g/dL Albumin (3.5-5.0) g/dL 10/31/24 Range/Units 02:36 RBC (3.80-5.40) m/uL Hgb (11.4-16.0) gm/dL Hct (34.0-46.0) % MCV (80.0-100.0) fL MCH (25.0-35.0) pg MCHC (31.0-37.0) g/dL RDW (11.5-15.5) % Lymphocytes # (1.0-4.8) k/uL Carbon Dioxide 37 H (22-30) mmol/L BUN 18 H (7-17) mg/dL Glucose 112 H (74-99) mg/dL POC Glucose (mg/dL) (70-110) mg/dL Plasma Lactic Acid Andrews (0.7-2.0) mmol/L Calcium 8.3 L (8.4-10.2) mg/dL Total Protein 5.7 L (6.3-8.2) g/dL Albumin 3.4 L (3.5-5.0) g/dL Assessment and Plan Time with Patient: Less than 30
[2024-11-01] MEDS: ALPRAZolam 0.25 MG TAB PO PRN (02:44)
[2024-11-01 08:48] LABS: Basophils # (A) 0.01 X 10*3/uL (0.00-0.10); Basophils % (A) 0.1 %; Eosinophils # (A) 0 X 10*3/uL (0.04-0.35); Eosinophils % (A) 0 %; HCT 26.7 % (37.2-46.3); HGB 7.1 g/dL (12.0-15.0); Lymphocytes # (A) 0.33 X 10*3/uL (0.90-5.00); Lymphocytes % (A) 4.6 %; MCH 20.7 pg (27.0-32.0); MCHC 26.6 g/dL (32.0-37.0); MCV 77.8 FL (80.0-97.0); Mean Platelet Volume 11.7 FL (9.5-12.2); Monocytes # (A) 0.17 X 10*3/uL (0.20-1.00); Monocytes % (A) 2.4 %; NRBC Per 100 WBC 0.03 X 10*3/uL (0.00-0.01); Neutrophils # (A) 6.67 X 10*3/uL (1.80-7.70); Neutrophils % (A) 92.3 %; Platelet Count 175 X 10*3/uL (140-440); RBC 3.43 X 10*6/uL (4.10-5.20); RDW 21.8 % (11.5-14.5); WBC 7.22 X 10*3/uL (4.50-10.00)
[2024-11-01] MEDS: FAMOTIDINE 20 MG TAB PO SCH (09:09)
[2024-11-01 09:37] LABS: BUN/Creat Ratio 20.18 Ratio (12.00-20.00); Blood Urea Nitrogen 22.2 mg/dL (9.0-27.0); Calcium 8.1 mg/dL (8.7-10.3); Carbon Dioxide 33.1 mmol/L (21.6-31.8); Chloride 94 mmol/L (96-109); Glucose 167 mg/dL (70-110); Potassium 3.9 mmol/L (3.5-5.5); Sodium 140 mmol/L (135-145)
[2024-11-01] MEDS: SODIUM FERRIC GLUCONAT-SUCROSE 125 MG in SODIUM CHLORIDE 0.9% 100 ML IVPB SCH (13:18)
[2024-11-01] MEDS ORDERED: ZINC OXIDE PASTE (Z-GUARD) 1 APPLIC TOPICAL PRN (17:21)
--- NOTE | 2024-11-01 19:11 | P.PN ---
Subjective Progress Note Date: 11/01/24 On 11/01/2024, the patient is being seen for a follow-up. The patient is in the hospital for an acute hypoxic/hypercapnic respiratory failure secondary to COPD/CHF exacerbation. The patient also has history of hypertension, hyperlipidemia and hypothyroidism along with his other medical problems. Upon a rrival to the hospital, the patient was placed on a BiPAP as the patient was found to have an acute on top of chronic hypercapnic respiratory failure and respiratory acidosis. proBNP level was in the 8000 range and the viral screen was negative and the chest x-ray was consistent with cardiomegaly and CHF. The patient was further stabilized and was taken off the BiPAP and the patient is currently on oxygen at 3 L/min nasal cannula. She is feeling better. She is less short of breath. She is covered with DuoNeb nebulized treatments [id number], she is also on a combination of Perforomist and Pulmicort updrafts twice a day, the patient is on IV Solu-Medrol 40 mg every 12 hours. She is on Aldactone 12.5 mg p.o. daily and Lasix 40 mg IV every 12 hours. The fluid balance over the past 24 hours has been -2.9 L -535 cc. The patient was also seen by cardiology. Most recent echocardiogram done on 11/13/2022 showed a normal LV function and the patient had severe mitral annular calcification with moderate to severe mitral regurgitation and moderate to severe pulmonary hypertension. Objective - Vital Signs Vital signs: Vital Signs Temp 98.2 F 11/01/24 12:50 Pulse 84 11/01/24 15:37 Resp 17 11/01/24 12:50 BP 101/61 11/01/24 12:50 Pulse Ox 100 11/01/24 12:50 FiO2 50 10/31/24 04:00 Intake & Output 11/01/24 11/01/24 11/02/24 06:59 18:59 06:59 Intake Total 720 Output Total 400 350 Balance -400 370 Intake: Oral 720 Output: Urine 400 350 Other: Voiding Method External Catheter External Catheter # Voids 2 - Exam No acute distress, awake and alert, no respiratory distress, currently on 3 L nasal cannula HEENT examination is grossly unremarkable. Neck supple. Full range of motion. No adenopathy thyromegaly or neck vein distention. Cardiovascular examination reveals regular rhythm rate. S1-S2 normal. No S3 or S4. Heart sounds are distant. Lungs scattered rhonchi and crackles. No wheezes. Breath sounds are equal bilaterally. Abdomen soft without bowel sounds or masses. Extremities are intact. No cyanosis clubbing or edema. Skin is without rash or lesion. Neurologic examination is brief but nonfocal. - Labs CBC & Chem 7: 11/01/24 05:19 11/01/24 05:19 Labs: Abnormal Lab Results - Last 24 Hours (Table) 11/01/24 11/01/24 Range/Units 05:19 05:19 RBC 3.43 L (4.10-5.20) X 10*6/uL Hgb 7.1 L (12.0-15.0) g/dL Hct 26.7 L (37.2-46.3) % MCV 77.8 L (80.0-97.0) FL MCH 20.7 L (27.0-32.0) pg MCHC 26.6 L (32.0-37.0) g/dL RDW 21.8 H (11.5-14.5) % Lymphocytes # 0.33 L (0.90-5.00) X 10*3/uL Monocytes # 0.17 L (0.20-1.00) X 10*3/uL Eosinophils # 0 L (0.04-0.35) X 10*3/uL NRBC/100 WBC Diff 0.03 H (0.00-0.01) X 10*3/uL Chloride 94 L (96-109) mmol/L Carbon Dioxide 33.1 H (21.6-31.8) mmol/L Anion Gap 12.90 H (4.00-12.00) mmol/L Est GFR (CKD-EPI) 51 L (>=60) BUN/Creatinine Ratio 20.18 H (12.00-20.00) Ratio Glucose 167 H (70-110) mg/dL Calcium 8.1 L (8.7-10.3) mg/dL Assessment and Plan Plan: Acute hypoxemic and hypercapnic respiratory failure, secondary to exacerbation of COPD/CHF. The patient had an acute on top of chronic respiratory acidosis at time admission, stabilized with BiPAP and the patient is currently on 3 L of oxygen by nasal cannula. No signs of any CO2 narcosis. The patient is being treated with a combination of bronchodilators, steroids and the patient is also on diuretics utilizing Lasix and Aldactone. Chronic hypoxemic respiratory failure. History of hypertension. History of COPD. CHF with valvular heart disease with moderate-severe mitral regurgitation History of hyperlipidemia. History of hypothyroidism. Previous history of CVA. History of restless leg syndrome. Prior history of tobacco use. Plan: Clinically improving and the patient is currently on 3 days of oxygen by nasal cannula Continue bronchodilators with DuoNeb Continue Perforomist and Pulmicort updrafts twice a day Continue IV Solu-Medrol 40 mg every 12 hours Continue Lasix 40 mg every 12 hours Continue Aldactone 12.5 mg p.o. daily Maintain negative fluid balance Monitor electrolytes Repeat echocardiogram Will continue to follow
--- NOTE | 2024-11-01 22:55 | P.PN ---
Subjective Progress Note Date: 11/01/24 81-year-old pleasant female well-known to me from her multiple hospitalizations at both hospitals came in with complaints of shortness of breath and hypoxemia patient is presently on BiPAP patient is found to have congestive heart failure with pulmonary edema on the chest x-ray BNP of 8500. Patient does have a history of congestive heart failure chronic diastolic function patient has valvular heart disease severe mitral regurgitation needing mitral valve replacement. Patient has an ABG which showed hypercapnic respiratory failure patient does have history of COPD as well does not smoke anywhere and uses around 2 to 3 L of oxygen at home patient has elevated lactate because of which patient is receiving fluids which I will discontinue at this time. She was agitated and delirious received the Ativan we will discontinue Ativan we will use Haldol as needed for agitation patient does have restless leg as well for which we will use Requip part of the reason why she is agitated. Patient has respiratory acidosis and metabolic acidosis. 10/31/2024 Patient is evaluated in follow-up in the ICU. Patient will be downgraded to the medical floor when a bed becomes available. She has been taken off of BiPAP did not wear overnight and currently down to 3 L of nasal cannula and saturating well. She reports improvement in shortness of breath not having any chest pain at this time. She continues on IV Lasix 40 mg every 12 hours. Additionally she remains on IV Solu-Medrol 40 mg every 12 hours. 11/01/2024 Patient has been downgraded from the intensive care unit currently evaluated the medical surgical floor. She is sitting up in the chair has no acute complaints overnight. Patient is been weaned down to 3 L of nasal cannula and has not required the BiPAP overnight. She does report continued shortness of breath although much improved since admission. Patient is continued on IV Lasix 40 mg every 12 hours. She is also continued on IV Solu-Medrol at this time. Iron studies were completed due to a hemoglobin of 7.1 iron levels 13 TIBC 412% saturation of 3.16 transferrin 294 and ferritin level is low normal at 54.5 patient likely has underlying iron deficiency and will be started on iron transfusions. Patient states that her primary provider was working on getting her started on iron transfusions on an outpatient basis. Review of Systems Constitutional: Denied any fatigue denied any fever. Cardio vascular: denied any chest pain, palpitations Gastrointestinal: denied any nausea, vomiting, diarrhea Pulmonary: Denied any shortness of breath cough Neurologic denied any new focal deficits All inpatient medications were reviewed and appropriate changes in these medications as dictated in the interval history and assessment and plan. PHYSICAL EXAMINATION: GENERAL: The patient is alert and oriented x3, not in any acute distress. Thin built female HEENT: Pupils are round and equally reacting to light. EOMI. No scleral icterus. No conjunctival pallor. Normocephalic, atraumatic. No pharyngeal erythema. No thyromegaly. CARDIOVASCULAR: S1 and S2 present. No murmurs, rubs, or gallops. PULMONARY: Fairly good air entry to bilateral lung chan crackles bilateral lung chan no wheezing was appreciated ABDOMEN: Soft, nontender, nondistended, normoactive bowel sounds. No palpable organomegaly. MUSCULOSKELETAL: No joint swelling or deformity. EXTREMITIES: No cyanosis, clubbing, or pedal edema. NEUROLOGICAL: Gross neurological examination did not reveal any focal deficits. SKIN: No rashes. Assessment and plan -Acute on chronic hypoxic as well as hypercapnic respiratory failure: Secondary to congestive heart failure exacerbation and COPD exacerbation. -Congestive heart failure chronic diastolic function with acute exacerbation patient uses 20 mg of Lasix twice a day at home patient restarted on 40 mg IV twice daily with input and output monitoring. Aldactone -COPD with acute exacerbation systemic steroids no evidence of pneumonia at this time -Severe mitral regurgitation will need valve replacement but may not be a candidate because of her respiratory status and chronic respiratory failure requiring 3 L of oxygen -Iron deficiency anemia patient was started on IV Ferrlecit x 3 days -Hypertension -Sinus tachycardia improved patient was resumed on her oral metoprolol. -CVA TIA in the past -Hyperlipidemia -Hypothyroidism -Progressive disease DVT prophylaxis: Subcutaneous Lovenox The impression and plan of care has been dictated by Katie Aguilar Nurse Practitioner as directed. Dr. Trevor MD I have performed a history and physical examination and medical decision making of this patient, discussed the same with the dictator, and agree with the dictators assessment and plan as written, documented as a scribe. Based on total visit time, I have performed more than 50% of this visit. Objective - Vital Signs Vital signs: Vital Signs Temp 97.9 F 11/01/24 19:03 Pulse 84 11/01/24 21:39 Resp 18 11/01/24 19:03 BP 97/53 11/01/24 19:03 Pulse Ox 96 11/01/24 19:03 FiO2 50 10/31/24 04:00 Intake & Output 11/01/24 11/01/24 11/02/24 06:59 18:59 06:59 Intake Total 720 222 Output Total 400 350 Balance -400 370 222 Intake: Oral 720 222 Output: Urine 400 350 Other: Voiding Method External Catheter External Catheter # Voids 2 - Labs CBC & Chem 7: 11/01/24 05:19 11/01/24 05:19 Labs: Abnormal Lab Results - Last 24 Hours (Table) 11/01/24 11/01/24 Range/Units 05:19 05:19 RBC 3.43 L (4.10-5.20) X 10*6/uL Hgb 7.1 L (12.0-15.0) g/dL Hct 26.7 L (37.2-46.3) % MCV 77.8 L (80.0-97.0) FL MCH 20.7 L (27.0-32.0) pg MCHC 26.6 L (32.0-37.0) g/dL RDW 21.8 H (11.5-14.5) % Lymphocytes # 0.33 L (0.90-5.00) X 10*3/uL Monocytes # 0.17 L (0.20-1.00) X 10*3/uL Eosinophils # 0 L (0.04-0.35) X 10*3/uL NRBC/100 WBC Diff 0.03 H (0.00-0.01) X 10*3/uL Chloride 94 L (96-109) mmol/L Carbon Dioxide 33.1 H (21.6-31.8) mmol/L Anion Gap 12.90 H (4.00-12.00) mmol/L Est GFR (CKD-EPI) 51 L (>=60) BUN/Creatinine Ratio 20.18 H (12.00-20.00) Ratio Glucose 167 H (70-110) mg/dL Calcium 8.1 L (8.7-10.3) mg/dL Assessment and Plan Time with Patient: Less than 30
[2024-11-02 09:04] LABS: BUN/Creat Ratio 19.11 Ratio (12.00-20.00); Blood Urea Nitrogen 17.2 mg/dL (9.0-27.0); Calcium 7.9 mg/dL (8.7-10.3); Carbon Dioxide 37.6 mmol/L (21.6-31.8); Chloride 92 mmol/L (96-109); Glucose 179 mg/dL (70-110); Potassium 3.6 mmol/L (3.5-5.5); Sodium 141 mmol/L (135-145)
--- NOTE | 2024-11-02 11:23 | CA ---
Transthoracic Echo Report Name: Jessica Scanlon Age: 79 Gender: F : 1945 Exam Date: 11/02/2024 09:38 Exam Location: [facility] Ht (in): 64 Wt (lb): 125 Ordering Physician: Heidi Grant MD Attending/Referring Phys: Nuclear Monitoring Technician Kimberly Vazquez RDCS Procedure CPT: Indications: mitral regurgitation Cardiac Hx: Technical Quality: Fair Contrast 1: Total Dose (mL): Contrast 2: Total Dose (mL): MEASUREMENTS (Male / Female) Normal Values 2D ECHO LV Diastolic Diameter PLAX 3.6 cm 4.2 - 5.9 / 3.9 - 5.3 cm LV Systolic Diameter PLAX 2.4 cm IVS Diastolic Thickness 1.2 cm 0.6 - 1.0 / 0.6 - 0.9 cm LVPW Diastolic Thickness 1.0 cm 0.6 - 1.0 / 0.6 - 0.9 cm LV Relative Wall Thickness 0.6 RV Internal Dim ED PLAX 2.3 cm LVOT Diameter 1.8 cm LA Systolic Diameter LX 5.6 cm 3.0 - 4.0 / 2.7 - 3.8 cm LV Diastolic Volume MOD BP 39.2 cm??? 67 - 155 / 56 - 104 cm??? LV Systolic Volume MOD BP 10.3 cm??? 22 - 58 / 19 - 49 cm??? LV Ejection Fraction MOD BP 73.7 % >= 55 % LV Cardiac Index MOD BP 1785.8 cm???/min???m??? LV Diastolic Volume MOD 4C 47.8 cm??? LV Systolic Volume MOD 4C 8.8 cm??? LV Ejection Fraction MOD 4C 81.6 % LV Cardiac Index MOD 4C 2414.2 cm???/min???m??? LV Diastolic Length 4C 6.6 cm LV Systolic Length 4C 5.4 cm LV Diastolic Volume MOD 2C 32.3 cm??? LV Systolic Volume MOD 2C 12.7 cm??? LV Ejection Fraction MOD 2C 60.5 % LV Cardiac Index MOD 2C 1207.1 cm???/min???m??? LV Diastolic Length 2C 6.5 cm LV Systolic Length 2C 5.3 cm M-MODE Aortic Root Diameter MM 3.2 cm LA Systolic Diameter MM 6.0 cm LA Ao Ratio MM 1.9 AV Cusp Separation MM 1.4 cm DOPPLER AV Peak Velocity 104.2 cm/s AV Peak Gradient 4.3 mmHg AV Mean Velocity 137.5 cm/s AV Mean Gradient 8.7 mmHg AV Velocity Time Integral 40.0 cm LVOT Peak Velocity 123.4 cm/s LVOT Peak Gradient 6.1 mmHg LVOT Velocity Time Integral 29.3 cm LVOT Stroke Volume 77.0 cm??? LVOT Stroke Volume Index 48.1 ml/m??? LVOT Cardiac Index 4762.7 cm???/min???m??? AV Area Cont Eq vti 1.9 cm??? AV Area Cont Eq pk 3.1 cm??? MV Peak Velocity 237.2 cm/s MV Peak Gradient 22.5 mmHg MV Mean Velocity 156.5 cm/s MV Mean Gradient 11.4 mmHg MV Velocity Time Integral 53.4 cm Mitral E Point Velocity 216.5 cm/s Mitral A Point Velocity 188.5 cm/s Mitral E to A Ratio 1.1 MV Deceleration Time 271.0 ms TR Peak Velocity 398.3 cm/s TR Peak Gradient 63.5 mmHg Right Ventricular Systolic Press 73.6 mmHg FINDINGS Left Ventricle Left ventricular ejection fraction is estimated at 60-65 %. Mildly increased septal wall thickness. Mildly increased posterior wall thickness. Normal left ventricular systolic function with no obvious regional wall motion abnormalities. Left ventricular cavity size normal. Right Ventricle Normal right ventricular size and function. Severe pulmonary hypertension. Right Atrium Mild right atrial dilatation. Left Atrium Severely increased left atrial diameter. Mitral Valve Severe mitral stenosis, Mean PG 11 mmHg. Severe mitral regurgitation. Mitral valve thickened. Mitral annular calcification. Aortic Valve Trileaflet aortic valve. Trace to mild aortic regurgitation. Diffuse thickening (sclerosis) of the aortic valve cusps without reduced excursion. Tricuspid Valve Structurally normal tricuspid valve. Moderate tricuspid regurgitation. No tricuspid stenosis. Pulmonic Valve Trace pulmonic regurgitation. No pulmonic stenosis. Pericardium No pericardial or pleural effusion. Aorta Normal size aortic root and proximal ascending aorta. CONCLUSIONS Normal LV function Severe mitral regurgitation Mild aortic regurgitation Moderate tricuspid regurgitation Severe pulmonary hypertension Previewed by: Dr. Rodney Gutierrez MD (Electronically Signed) Final Date: 02 November 2024 11:22
--- NOTE | 2024-11-02 12:48 | XR ---
EXAMINATION TYPE: XR chest 2V DATE OF EXAM: 11/02/2024 12:39 PM COMPARISON: None CLINICAL INDICATION: Female, 79 years old with history of shortness of breath; TECHNIQUE: XR chest 2V Frontal and lateral views of the chest. FINDINGS: Lungs/Pleura: Airspace opacities projecting the right lower lung medially. There is no evidence of pl eural effusion, focal consolidation, or pneumothorax. Pulmonary vascularity: Unremarkable. Heart/mediastinum: Cardiomediastinal silhouette is unremarkable. Musculoskeletal: No acute osseous pathology. Fixation hardware in the right clavicle with arthroplast y changes right shoulder. Other findings: None IMPRESSION: Right basilar airspace opacities correlate for pneumonia. [facility], , 11/02/2024 12:45 PM
--- NOTE | 2024-11-02 14:44 | P.PN ---
Subjective Progress Note Date: 11/02/24 81-year-old pleasant female well-known to me from her multiple hospitalizations at both hospitals came in with complaints of shortness of breath and hypoxemia patient is presently on BiPAP patient is found to have congestive heart failure with pulmonary edema on the chest x-ray BNP of 8500. Patient does have a history of congestive heart failure chronic diastolic function patient has valvular heart disease severe mitral regurgitation needing mitral valve replacement. Patient has an ABG which showed hypercapnic respiratory failure patient does have history of COPD as well does not smoke anywhere and uses around 2 to 3 L of oxygen at home patient has elevated lactate because of which patient is receiving fluids which I will discontinue at this time. She was agitated and delirious received the Ativan we will discontinue Ativan we will use Haldol as needed for agitation patient does have restless leg as well for which we will use Requip part of the reason why she is agitated. Patient has respiratory acidosis and metabolic acidosis. 10/31/2024 Patient is evaluated in follow-up in the ICU. Patient will be downgraded to the medical floor when a bed becomes available. She has been taken off of BiPAP did not wear overnight and currently down to 3 L of nasal cannula and saturating well. She reports improvement in shortness of breath not having any chest pain at this time. She continues on IV Lasix 40 mg every 12 hours. Additionally she remains on IV Solu-Medrol 40 mg every 12 hours. 11/01/2024 Patient has been downgraded from the intensive care unit currently evaluated the medical surgical floor. She is sitting up in the chair has no acute complaints overnight. Patient is been weaned down to 3 L of nasal cannula and has not required the BiPAP overnight. She does report continued shortness of breath although much improved since admission. Patient is continued on IV Lasix 40 mg every 12 hours. She is also continued on IV Solu-Medrol at this time. Iron studies were completed due to a hemoglobin of 7.1 iron levels 13 TIBC 412% saturation of 3.16 transferrin 294 and ferritin level is low normal at 54.5 patient likely has underlying iron deficiency and will be started on iron transfusions. Patient states that her primary provider was working on getting her started on iron transfusions on an outpatient basis. 11/02/2024 Patient evaluated in follow up on the medical floor. Echocardiogram completed EF 60-65%. Severe mitral regurgitation, mild aortic regurgitation, moderate tricuspid regurgitation, severe pulmonary hypertension. Patient continues on IV iron infusion. Feels more short of breath today. Chest xray showing right basilar airspace opacity concerning for pneumonia. Review of Systems Constitutional: Denied any fatigue denied any fever. Cardio vascular: denied any chest pain, palpitations Gastrointestinal: denied any nausea, vomiting, diarrhea Pulmonary: Reports shortness of breath cough Neurologic denied any new focal deficits All inpatient medications were reviewed and appropriate changes in these medications as dictated in the interval history and assessment and plan. PHYSICAL EXAMINATION: GENERAL: The patient is alert and oriented x3, not in any acute distress. Thin built female HEENT: Pupils are round and equally reacting to light. EOMI. No scleral icterus. No conjunctival pallor. Normocephalic, atraumatic. No pharyngeal erythema. No thyromegaly. CARDIOVASCULAR: S1 and S2 present. No murmurs, rubs, or gallops. PULMONARY: Fairly good air entry to bilateral lung chan crackles bilateral lung chan no wheezing was appreciated ABDOMEN: Soft, nontender, nondistended, normoactive bowel sounds. No palpable organomegaly. MUSCULOSKELETAL: No joint swelling or deformity. EXTREMITIES: No cyanosis, clubbing, or pedal edema. NEUROLOGICAL: Gross neurological examination did not reveal any focal deficits. SKIN: No rashes. Assessment and plan -Acute on chronic hypoxic as well as hypercapnic respiratory failure: Secondary to congestive heart failure exacerbation and COPD exacerbation. -Congestive heart failure chronic diastolic function with acute exacerbation patient uses 20 mg of Lasix twice a day at home patient transitioned to oral lasix, Aldactone -COPD with acute exacerbation systemic steroids no evidence of pneumonia at this time -Severe mitral regurgitation will need valve replacement but may not be a candidate because of her respiratory status and chronic respiratory failure requiring 3 L of oxygen -Iron deficiency anemia patient was started on IV Ferrlecit x 3 days -Hypertension -Sinus tachycardia improved patient was resumed on her oral metoprolol. -CVA TIA in the past -Hyperlipidemia -Hypothyroidism -Progressive disease DVT prophylaxis: Subcutaneous Lovenox GI prophylaxis: Protonix Full Code The impression and plan of care has been dictated by Katie Aguilar, Nurse Practitioner as directed. Dr. Trevor MD I have performed a history and physical examination and medical decision making of this patient, discussed the same with the dictator, and agree with the dictators assessment and plan as written, documented as a scribe. Based on total visit time, I have performed more than 50% of this visit. Objective - Vital Signs Vital signs: Vital Signs Temp 98.0 F 11/02/24 11:52 Pulse 92 11/02/24 12:11 Resp 16 11/02/24 11:52 BP 93/53 11/02/24 11:52 Pulse Ox 97 11/02/24 11:52 FiO2 50 10/31/24 04:00 Intake & Output 11/01/24 11/02/24 11/02/24 18:59 06:59 18:59 Intake Total 720 222 Output Total 350 550 750 Balance 370 -328 -750 Intake: Oral 720 222 Output: Urine 350 550 750 Other: Voiding Method External Catheter External Catheter External Catheter # Voids 2 1 - Labs CBC & Chem 7: 11/01/24 05:19 11/02/24 04:46 Labs: Abnormal Lab Results - Last 24 Hours (Table) 11/02/24 Range/Units 04:46 Chloride 92 L (96-109) mmol/L Carbon Dioxide 37.6 H (21.6-31.8) mmol/L Glucose 179 H (70-110) mg/dL Calcium 7.9 L (8.7-10.3) mg/dL Assessment and Plan Time with Patient: Less than 30
[2024-11-02] MEDS: IPRATROPIUM-ALBUTEROL 3 ML NEB INHALATION SCH (15:49)
--- NOTE | 2024-11-02 19:50 | P.PN ---
Subjective Progress Note Date: 11/02/24 On 11/01/2024, the patient is being seen for a follow-up. The patient is in the hospital for an acute hypoxic/hypercapnic respiratory failure secondary to COPD/CHF exacerbation. The patient also has history of hypertension, hyperlipidemia and hypothyroidism along with his other medical problems. Upon a rrival to the hospital, the patient was placed on a BiPAP as the patient was found to have an acute on top of chronic hypercapnic respiratory failure and respiratory acidosis. proBNP level was in the 8000 range and the viral screen was negative and the chest x-ray was consistent with cardiomegaly and CHF. The patient was further stabilized and was taken off the BiPAP and the patient is currently on oxygen at 3 L/min nasal cannula. She is feeling better. She is less short of breath. She is covered with DuoNeb nebulized treatments [id number], she is also on a combination of Perforomist and Pulmicort updrafts twice a day, the patient is on IV Solu-Medrol 40 mg every 12 hours. She is on Aldactone 12.5 mg p.o. daily and Lasix 40 mg IV every 12 hours. The fluid balance over the past 24 hours has been -2.9 L -535 cc. The patient was also seen by cardiology. Most recent echocardiogram done on 11/13/2022 showed a normal LV function and the patient had severe mitral annular calcification with moderate to severe mitral regurgitation and moderate to severe pulmonary hypertension. On 11/02/2024, the patient is being seen for a follow-up. The patient is an acute COPD/CHF exacerbation. She is currently off the BiPAP and the patient is currently on oxygen at 3 L/min nasal cannula. No new complaints for now. She reports improvement. She remains on DuoNeb nebulized treatments [id number], Perforomist and Pulmicort nebulized treatments twice a day, Lasix 40 mg in the morning and 20 mg in the evening and Aldactone 12.5 mg p.o. daily. She is also on prednisone 40 mg p.o. daily as part of a burst taper. She is on IV iron and the patient's hemoglobin is at 7.1 with a white cell count of 7.2 and a platelet count of 175. Electrolytes are all stable. BUN is 17 with a creatinine of 0.9. Procalcitonin level is at 0.15. Repeat chest x-ray from today is consistent with CHF with increased pulm vascular markings and possibly some right basilar atelectasis/infiltrates. Findings are essentially stable on today's chest x-ray. Echocardiogram was also completed and the patient was found to have a preserved LV function with an ejection fraction of 60 to 65%. The patient also has severe mitral regurgitation, moderate tricuspid regurgitation, severe pulm hypertension. Objective - Vital Signs Vital signs: Vital Signs Temp 98.9 F 11/02/24 19:47 Pulse 99 11/02/24 19:47 Resp 16 11/02/24 19:47 BP 97/57 11/02/24 19:47 Pulse Ox 97 11/02/24 19:47 FiO2 50 10/31/24 04:00 Intake & Output 11/02/24 11/02/24 11/03/24 06:59 18:59 06:59 Intake Total 222 Output Total 550 1050 Balance -328 -1050 Intake: Oral 222 Output: Urine 550 1050 Other: Voiding Method External Catheter External Catheter # Voids 1 - Exam No acute distress, awake and alert, no respiratory distress, currently on 3 L n jacques cannula HEENT examination is grossly unremarkable. Neck supple. Full range of motion. No adenopathy thyromegaly or neck vein distention. Cardiovascular examination reveals regular rhythm rate. S1-S2 normal. No S3 or S4. Heart sounds are distant. Lungs scattered rhonchi and crackles. No wheezes. Breath sounds are equal bilaterally. Abdomen soft without bowel sounds or masses. Extremities are intact. No cyanosis clubbing or edema. Skin is without rash or lesion. Neurologic examination is brief but nonfocal. - Labs CBC & Chem 7: 11/01/24 05:19 11/02/24 04:46 Labs: Abnormal Lab Results - Last 24 Hours (Table) 11/02/24 Range/Units 04:46 Chloride 92 L (96-109) mmol/L Carbon Dioxide 37.6 H (21.6-31.8) mmol/L Glucose 179 H (70-110) mg/dL Calcium 7.9 L (8.7-10.3) mg/dL Assessment and Plan Plan: Acute hypoxemic and hypercapnic respiratory failure, secondary to exacerbation of COPD/CHF. The patient had an acute on top of chronic respiratory acidosis at time admission, stabilized with BiPAP and the patient is currently on 3 L of oxygen by nasal cannula. No signs of any CO2 narcosis. The patient is being treated with a combination of bronchodilators, steroids and the patient is also on diuretics utilizing Lasix and Aldactone. The patient remains on 3 days of oxygen by nasal cannula. Chest x-ray findings are still showing pulm vascular congestion and right basilar infiltrate/atelectasis. Chronic hypoxemic respiratory failure. History of hypertension. History of COPD. CHF with valvular heart disease with severe mitral regurgitation, moderate tricuspid regurgitation and severe pulm hypertension on echocardiogram that was done on 11/02/2024 History of hyperlipidemia. History of hypothyroidism. Previous history of CVA. History of restless leg syndrome. Prior history of tobacco use. Plan: Clinically improving Maintain treated O2 nasal cannula Continue bronchodilators with DuoNeb Continue Perforomist and Pulmicort updrafts twice a day Prednisone burst taper Continue Lasix and the patient has been switched to oral Lasix Continue Aldactone 12.5 mg p.o. daily Maintain negative fluid balance Monitor electrolytes Repeat echocardiogram was noted Will continue to follow
[2024-11-02] MEDS: FUROSEMIDE 20 MG TAB PO SCH (20:48)
--- NOTE | 2024-11-03 08:31 | XR ---
EXAMINATION TYPE: XR chest 1V portable DATE OF EXAM: 11/03/2024 8:14 AM COMPARISON: Chest radiographs from 11/02/2024 CLINICAL INDICATION: Female, 79 years old with history of increased oxygen demands; TECHNIQUE: XR chest 1V portable Frontal view of the chest. FINDINGS: Lungs/Pleura: There is no evidence of pleural effusion, focal consolidation, or pneumothorax. Pulmonary vascularity: Pulmonary vascular congestion. Heart/mediastinum: Cardiomediastinal silhouette is enlarged. Musculoskeletal: No acute osseous pathology. Right shoulder arthroplasty appears intact. Right clavic le fixation hardware is intact. IMPRESSION: Cardiomegaly and mild pulmonary vascular congestion. Correlate with BNP for congestive heart failure. [facility], , 11/03/2024 8:29 AM
[2024-11-03] MEDS: FUROSEMIDE 40 MG TAB PO SCH (08:38)
[2024-11-03] MEDS: predniSONE 20 MG TAB PO SCH (08:38)
[2024-11-03 08:40] LABS: ABG Base Excess 23.2 mmol/L; ABG Oxygen Saturation 94.7 % (94-97); ABG PCO2 66 mmHg (35-45); ABG PH 7.48 (7.35-7.45); ABG PO2 66 mmHg (83-108); ABG TCO2 51 mmol/L (19-24); Allen Test Performed? Yes
[2024-11-03 08:50] LABS: ABG HCO3 49 mmol/L (21-25)
[2024-11-03 08:57] LABS: Basophils # (A) 0.02 X 10*3/uL (0.00-0.10); Basophils % (A) 0.1 %; Eosinophils # (A) 0.03 X 10*3/uL (0.04-0.35); Eosinophils % (A) 0.2 %; HCT 28.8 % (37.2-46.3); Lymphocytes # (A) 0.75 X 10*3/uL (0.90-5.00); Lymphocytes % (A) 3.9 %; MCH 21.3 pg (27.0-32.0); MCHC 27.8 g/dL (32.0-37.0); MCV 76.6 FL (80.0-97.0); Mean Platelet Volume 11.7 FL (9.5-12.2); Monocytes # (A) 1.44 X 10*3/uL (0.20-1.00); Monocytes % (A) 7.5 %; NRBC Per 100 WBC 0.05 X 10*3/uL (0.00-0.01); Neutrophils # (A) 16.81 X 10*3/uL (1.80-7.70); Neutrophils % (A) 87.3 %; Platelet Count 175 X 10*3/uL (140-440); RBC 3.76 X 10*6/uL (4.10-5.20); RDW 21.7 % (11.5-14.5); WBC 19.25 X 10*3/uL (4.50-10.00)
[2024-11-03 09:23] LABS: Blood Urea Nitrogen 14.8 mg/dL (9.0-27.0); Calcium 7.9 mg/dL (8.7-10.3); Carbon Dioxide 41.7 mmol/L (21.6-31.8); Chloride 87 mmol/L (96-109); Glucose 120 mg/dL (70-110); Potassium 3.4 mmol/L (3.5-5.5); Sodium 139 mmol/L (135-145)
[2024-11-03] MEDS ORDERED: Potassium Replacement Protocol 1 EACH MISC MISCELLANE PRN (12:39)
[2024-11-03] MEDS ORDERED: Magnesium Replacement Protocol 1 EACH MISC MISCELLANE PRN (12:39)
[2024-11-03] MEDS: PIPERACILLIN-TAZOBACTAM 3.375 GM in SODIUM CHLORIDE 0.9% 100 ML IVPB SCH (13:26)
[2024-11-03] MEDS: LACTULOSE 20 GM/30 ML CUP PO SCH (13:26)
[2024-11-03] MEDS: POTASSIUM CHLORIDE ER 10 MEQ TAB.ER.PRT PO SCH (13:26)
[2024-11-03] MEDS: FUROSEMIDE 10 MG/ML 2 ML VIAL IV STA (14:27)
--- NOTE | 2024-11-03 20:57 | P.PN ---
Subjective Progress Note Date: 11/03/24 On 11/01/2024, the patient is being seen for a follow-up. The patient is in the hospital for an acute hypoxic/hypercapnic respiratory failure secondary to COPD/CHF exacerbation. The patient also has history of hypertension, hyperlipidemia and hypothyroidism along with his other medical problems. Upon a rrival to the hospital, the patient was placed on a BiPAP as the patient was found to have an acute on top of chronic hypercapnic respiratory failure and respiratory acidosis. proBNP level was in the 8000 range and the viral screen was negative and the chest x-ray was consistent with cardiomegaly and CHF. The patient was further stabilized and was taken off the BiPAP and the patient is currently on oxygen at 3 L/min nasal cannula. She is feeling better. She is less short of breath. She is covered with DuoNeb nebulized treatments [id number], she is also on a combination of Perforomist and Pulmicort updrafts twice a day, the patient is on IV Solu-Medrol 40 mg every 12 hours. She is on Aldactone 12.5 mg p.o. daily and Lasix 40 mg IV every 12 hours. The fluid balance over the past 24 hours has been -2.9 L -535 cc. The patient was also seen by cardiology. Most recent echocardiogram done on 11/13/2022 showed a normal LV function and the patient had severe mitral annular calcification with moderate to severe mitral regurgitation and moderate to severe pulmonary hypertension. On 11/02/2024, the patient is being seen for a follow-up. The patient is an acute COPD/CHF exacerbation. She is currently off the BiPAP and the patient is currently on oxygen at 3 L/min nasal cannula. No new complaints for now. She reports improvement. She remains on DuoNeb nebulized treatments [id number], Perforomist and Pulmicort nebulized treatments twice a day, Lasix 40 mg in the morning and 20 mg in the evening and Aldactone 12.5 mg p.o. daily. She is also on prednisone 40 mg p.o. daily as part of a burst taper. She is on IV iron and the patient's hemoglobin is at 7.1 with a white cell count of 7.2 and a platelet count of 175. Electrolytes are all stable. BUN is 17 with a creatinine of 0.9. Procalcitonin level is at 0.15. Repeat chest x-ray from today is consistent with CHF with increased pulm vascular markings and possibly some right basilar atelectasis/infiltrates. Findings are essentially stable on today's chest x-ray. Echocardiogram was also completed and the patient was found to have a preserved LV function with an ejection fraction of 60 to 65%. The patient also has severe mitral regurgitation, moderate tricuspid regurgitation, severe pulm hypertension. On 11/03/2024, the patient is being seen for a follow-up. Earlier in the morning, the patient was found to be having some increased shortness of breath. Based on that, the patient was given a blood gas that showed compensated hypoxic and hypercapnic respiratory failure. The patient's pH was at 7.48 with a pCO2 of 66 and pO2 of 66. A follow-up chest x-ray was done and it showed cardiomegal y and pulmonary vascular congestion consistent with CHF. Nevertheless, the patient's white cell count was noted to be elevated at 19.2 with a hemoglobin of 8 and platelet of 175. Serum bicarb is at 41. Sodium levels at 139 and a potassium level is at 3.4. The procalcitonin level is at 0.15. The patient remains on DuoNeb of chest, Perforomist and Pulmicort nebulized treatments twice a day and the patient is also on Lasix 40 mg in the morning and 20 mg in the evening. She remains on IV Zosyn and a prednisone burst taper starting with 40 mg p.o. daily. She remains on Aldactone 25 mg p.o. daily. She is also on metoprolol XL 50 mg p.o. daily. The overall fluid balance over the past 24 ho urs is -1.8 L. Echocardiogram shows a preserved LV function, severe MR, severe pulmonary pretension. Objective - Vital Signs Vital signs: Vital Signs Temp 98.1 F 11/03/24 19:48 Pulse 92 11/03/24 19:48 Resp 16 11/03/24 19:48 BP 100/64 11/03/24 19:48 Pulse Ox 92 L 11/03/24 19:48 FiO2 40 11/03/24 13:40 Intake & Output 11/03/24 11/03/24 11/04/24 06:59 18:59 06:59 Intake Total 1160 Output Total 800 700 Balance -800 460 Intake: Intake, IV Titration 200 Amount Piperacillin-Tazobactam 3 100 .375 gm In Sodium Chloride 0.9% 100 ml @ 25 mls/hr IVPB Q8H [facility] Rx#: [id number] Sodium Ferric Gluconat- 100 Sucrose 125 mg In Sodium Chloride 0.9% 100 ml @ 100 mls/hr IVPB DAILY [facility] Rx#:[id number] Oral 960 Output: Urine 800 700 Other: Voiding Method External Catheter External Catheter - Exam No acute distress, awake and alert, no respiratory distress, currently on 3 L nasal cannula HEENT examination is grossly unremarkable. Neck supple. Full range of motion. No adenopathy thyromegaly or neck vein distention. Cardiovascular examination reveals regular rhythm rate. S1-S2 normal. No S3 or S4. Heart sounds are distant. Lungs scattered rhonchi and crackles. No wheezes. Breath sounds are equal bilaterally. Abdomen soft without bowel sounds or masses. Extremities are intact. No cyanosis clubbing or edema. Skin is without rash or lesion. Neurologic examination is brief but nonfocal. - Labs CBC & Chem 7: 11/03/24 05:38 11/03/24 05:38 Labs: Abnormal Lab Results - Last 24 Hours (Table) 11/03/24 11/03/24 11/03/24 Range/Units 05:38 05:38 08:33 WBC 19.25 H (4.50-10.00) X 10*3/uL RBC 3.76 L (4.10-5.20) X 10*6/uL Hgb 8.0 L (12.0-15.0) g/dL Hct 28.8 L (37.2-46.3) % MCV 76.6 L (80.0-97.0) FL MCH 21.3 L (27.0-32.0) pg MCHC 27.8 L (32.0-37.0) g/dL RDW 21.7 H (11.5-14.5) % Immature Gran # 0.20 H (0.00-0.04) X 10*3/uL Neutrophils # 16.81 H (1.80-7.70) X 10*3/uL Lymphocytes # 0.75 L (0.90-5.00) X 10*3/uL Monocytes # 1.44 H (0.20-1.00) X 10*3/uL Eosinophils # 0.03 L (0.04-0.35) X 10*3/uL NRBC/100 WBC Diff 0.05 H (0.00-0.01) X 10*3/uL ABG pH 7.48 H (7.35-7.45) ABG pCO2 66 H (35-45) mmHg ABG pO2 66 L (83-108) mmHg ABG HCO3 49 H* (21-25) mmol/L ABG Total CO2 51 H (19-24) mmol/L Hemoglobin 7.8 L (11.4-16.0) gm/dL Potassium 3.4 L (3.5-5.5) mmol/L Chloride 87 L (96-109) mmol/L Carbon Dioxide 41.7 A* (21.6-31.8) mmol/L Glucose 120 H (70-110) mg/dL Calcium 7.9 L (8.7-10.3) mg/dL C-Reactive Protein (<1.0) mg/dL 11/03/24 Range/Units 12:53 WBC (4.50-10.00) X 10*3/uL RBC (4.10-5.20) X 10*6/uL Hgb (12.0-15.0) g/dL Hct (37.2-46.3) % MCV (80.0-97.0) FL MCH (27.0-32.0) pg MCHC (32.0-37.0) g/dL RDW (11.5-14.5) % Immature Gran # (0.00-0.04) X 10*3/uL Neutrophils # (1.80-7.70) X 10*3/uL Lymphocytes # (0.90-5.00) X 10*3/uL Monocytes # (0.20-1.00) X 10*3/uL Eosinophils # (0.04-0.35) X 10*3/uL NRBC/100 WBC Diff (0.00-0.01) X 10*3/uL ABG pH (7.35-7.45) ABG pCO2 (35-45) mmHg ABG pO2 (83-108) mmHg ABG HCO3 (21-25) mmol/L ABG Total CO2 (19-24) mmol/L Hemoglobin (11.4-16.0) gm/dL Potassium (3.5-5.5) mmol/L Chloride (96-109) mmol/L Carbon Dioxide (21.6-31.8) mmol/L Glucose (70-110) mg/dL Calcium (8.7-10.3) mg/dL C-Reactive Protein 17.6 H (<1.0) mg/dL Assessment and Plan Plan: Acute hypoxemic and hypercapnic respiratory failure, secondary to exacerbation of COPD/CHF. Recent blood gases shows metabolic alkalosis and chronic hypoxic and hypercapnic respiratory failure. The patient is being treated with a combination of bronchodilators, steroids and the patient is also on diuretics utilizing Lasix and Aldactone. The patient has developed significant metabolic alkalosis. The patient utilizing BiPAP on and off. Chest x-ray is consistent with CHF. Of concern is the leukocytosis and the patient is on IV Zosyn on an empiric basis. Procalcitonin level is not elevated. b Chronic hypoxemic respiratory failure. History of hypertension. History of COPD. CHF with valvular heart disease with severe mitral regurgitation, moderate tricuspid regurgitation and severe pulm hypertension on echocardiogram that was done on 11/02/2024 Metabolic alkalosis, likely secondary to diuretics. The patient is negative fluid balance History of hyperlipidemia. History of hypothyroidism. Previous history of CVA. History of restless leg syndrome. Prior history of tobacco use. Plan: Utilize BiPAP on and off during the day, otherwise while off the BiPAP the patient is on 3 L Maintain treated O2 nasal cannula Continue bronchodilators with DuoNeb Continue Perforomist and Pulmicort updrafts twice a day Prednisone burst taper, currently on 40 mg Continue Lasix a 40 mg the morning and 20 mg the evening Continue Aldactone 12.5 mg p.o. daily Diamox 500 mg IV every 12 hours x 2 doses Maintain negative fluid balance Monitor electrolytes Repeat echocardiogram was noted Will continue to follow
--- NOTE | 2024-11-04 08:25 | PN ---
PROGRESS NOTE DATE OF SERVICE: 11/03/2024 SUBJECTIVE: This is a 79-year-old woman, who was admitted with COPD acute exacerbation as well as CHF acute exacerbation. The patient also had apparent pneumonia also. The patient is rather confused. The patient also had multiple abnormalities. White count is also elevated today. PAST MEDICAL HISTORY: Reviewed. REVIEW OF SYSTEMS: A 14-point review of systems is negative except as mentioned earlier. CURRENT MEDICATIONS: Reviewed. PHYSICAL EXAMINATION: VITAL SIGNS: Pulse is 78, blood pressure 130/69, respirations 19. HEENT: Conjunctivae normal. CARDIAC: S1, S2. RESPIRATIONS: A few scattered rhonchi and crackles. ABDOMEN: Soft. NERVOUS SYSTEM: Nonfocal. LABORATORY DATA: Reviewed. WBC 19.25. ASSESSMENT: 1. Chronic obstructive pulmonary disease acute exacerbation. 2. Possible bilateral pneumonia, consider gram-negative. 3. Hypokalemia. 4. History of congestive heart failure. 5. Hypertension. 6. Multiple complex medical issues. 7. Dysphagia. RECOMMENDATION AND DISCUSSION: In this 79-year-old woman, who presented with multiple complex medical issues, we will monitor the patient closely. Continue the current medications, continue symptomatic treatment. Otherwise, recommend a course of antibiotics, the possibility of aspiration need to be considered. Otherwise, I would also recommend to continue with bronchodilators, steroids also. Prognosis guarded. Further recommendations to follow. We will obtain a sputum culture and blood cultures. MMODL / IJN: [id number] /
[2024-11-04 10:15] LABS: ALT 17 U/L (8-44); AST 18 U/L (13-35); Albumin 3.4 g/dL (3.8-4.9); Albumin/Globulin Ratio 1.55 Ratio (1.60-3.17); Alkaline Phosphatase 87 U/L (41-126); Blood Urea Nitrogen 18.1 mg/dL (9.0-27.0); Calcium 7.8 mg/dL (8.7-10.3); Carbon Dioxide 40.3 mmol/L (21.6-31.8); Chloride 88 mmol/L (96-109); Globulin 2.2 g/dL (1.6-3.3); Glucose 96 mg/dL (70-110); Potassium 3.1 mmol/L (3.5-5.5); Sodium 141 mmol/L (135-145); Total Bilirubin 0.6 mg/dL (0.3-1.2); Total Protein 5.6 g/dL (6.2-8.2)
[2024-11-04 11:19] LABS: HCT 29.7 % (37.2-46.3); HGB 7.9 g/dL (12.0-15.0); MCH 21.1 pg (27.0-32.0); MCHC 26.6 g/dL (32.0-37.0); MCV 79.4 FL (80.0-97.0); NRBC Per 100 WBC 0.02 X 10*3/uL (0.00-0.01); Platelet Count 184 X 10*3/uL (140-440); RBC 3.74 X 10*6/uL (4.10-5.20); RDW 22.3 % (11.5-14.5); WBC 12.76 X 10*3/uL (4.50-10.00)
[2024-11-04 11:20] LABS: Basophils # (M) 0 X 10*3/uL (0.00-0.10); Elliptocytes 2+ (None Seen); Eosinophils # (M) 0 X 10*3/uL (0.04-0.35); Hypochromasia (M) 2+ (None Seen); Microcytosis (M) 2+ (None Seen); Monocytes # (M) 0.51 X 10*3/uL (0.20-1.00); Neutrophils # (M) 10.85 X 10*3/uL (1.80-7.70); Neutrophils % (M) 85 %
--- NOTE | 2024-11-04 12:18 | XR ---
EXAMINATION TYPE: XR chest 1V portable DATE OF EXAM: 11/04/2024 11:10 AM COMPARISON: Chest radiographs from 11/03/2024 CLINICAL INDICATION: Female, 79 years old with history of elevated CO2; [facility] TECHNIQUE: XR chest 1V portable Frontal view of the chest. FINDINGS: Lungs/Pleura: There is no evidence of pleural effusion, focal consolidation, or pneumothorax. Pulmonary vascularity: Pulmonary vascular congestion. Heart/mediastinum: Cardiomediastinal silhouette is enlarged. Musculoskeletal: No acute osseous pathology. Fixation hardware of the cervical spine right clavicle a nd arthroplasty of the right shoulder. Other findings: None: IMPRESSION: Cardiomegaly and mild pulmonary vascular congestion. Correlate with BNP for congestive heart failure. [facility], , 11/04/2024 12:15 PM
[2024-11-04] MEDS: SODIUM CHLORIDE 0.9% 500 ML 250 ML IV STA (12:47)
[2024-11-04] MEDS: methylPREDNISolone SOD SUCCI 125 MG/2 ML VIAL IV SCH (15:09)
--- NOTE | 2024-11-04 20:50 | P.PN ---
Subjective Progress Note Date: 11/04/24 On 11/01/2024, the patient is being seen for a follow-up. The patient is in the hospital for an acute hypoxic/hypercapnic respiratory failure secondary to COPD/CHF exacerbation. The patient also has history of hypertension, hyperlipidemia and hypothyroidism along with his other medical problems. Upon a rrival to the hospital, the patient was placed on a BiPAP as the patient was found to have an acute on top of chronic hypercapnic respiratory failure and respiratory acidosis. proBNP level was in the 8000 range and the viral screen was negative and the chest x-ray was consistent with cardiomegaly and CHF. The patient was further stabilized and was taken off the BiPAP and the patient is currently on oxygen at 3 L/min nasal cannula. She is feeling better. She is less short of breath. She is covered with DuoNeb nebulized treatments [id number], she is also on a combination of Perforomist and Pulmicort updrafts twice a day, the patient is on IV Solu-Medrol 40 mg every 12 hours. She is on Aldactone 12.5 mg p.o. daily and Lasix 40 mg IV every 12 hours. The fluid balance over the past 24 hours has been -2.9 L -535 cc. The patient was also seen by cardiology. Most recent echocardiogram done on 11/13/2022 showed a normal LV function and the patient had severe mitral annular calcification with moderate to severe mitral regurgitation and moderate to severe pulmonary hypertension. On 11/02/2024, the patient is being seen for a follow-up. The patient is an acute COPD/CHF exacerbation. She is currently off the BiPAP and the patient is currently on oxygen at 3 L/min nasal cannula. No new complaints for now. She reports improvement. She remains on DuoNeb nebulized treatments [id number], Perforomist and Pulmicort nebulized treatments twice a day, Lasix 40 mg in the morning and 20 mg in the evening and Aldactone 12.5 mg p.o. daily. She is also on prednisone 40 mg p.o. daily as part of a burst taper. She is on IV iron and the patient's hemoglobin is at 7.1 with a white cell count of 7.2 and a platelet count of 175. Electrolytes are all stable. BUN is 17 with a creatinine of 0.9. Procalcitonin level is at 0.15. Repeat chest x-ray from today is consistent with CHF with increased pulm vascular markings and possibly some right basilar atelectasis/infiltrates. Findings are essentially stable on today's chest x-ray. Echocardiogram was also completed and the patient was found to have a preserved LV function with an ejection fraction of 60 to 65%. The patient also has severe mitral regurgitation, moderate tricuspid regurgitation, severe pulm hypertension. On 11/03/2024, the patient is being seen for a follow-up. Earlier in the morning, the patient was found to be having some increased shortness of breath. Based on that, the patient was given a blood gas that showed compensated hypoxic and hypercapnic respiratory failure. The patient's pH was at 7.48 with a pCO2 of 66 and pO2 of 66. A follow-up chest x-ray was done and it showed cardiomegal y and pulmonary vascular congestion consistent with CHF. Nevertheless, the patient's white cell count was noted to be elevated at 19.2 with a hemoglobin of 8 and platelet of 175. Serum bicarb is at 41. Sodium levels at 139 and a potassium level is at 3.4. The procalcitonin level is at 0.15. The patient remains on DuoNeb of chest, Perforomist and Pulmicort nebulized treatments twice a day and the patient is also on Lasix 40 mg in the morning and 20 mg in the evening. She remains on IV Zosyn and a prednisone burst taper starting with 40 mg p.o. daily. She remains on Aldactone 25 mg p.o. daily. She is also on metoprolol XL 50 mg p.o. daily. The overall fluid balance over the past 24 ho urs is -1.8 L. Echocardiogram shows a preserved LV function, severe MR, severe pulmonary pretension. On 11/04/2024, the patient is lethargic and weak. Denies having any shortness of breath at rest. She remains on 3 Suboxone by nasal cannula and the patient on and off is using the BiPAP during the day. Her previous blood gas showed a compensated respiratory acidosis, likely chronic. The patient has significant metabolic alkalosis and the patient was given Diamox. Serum bicarb is at 40. H emoglobin is at 7.9. She is still on oral Lasix and she is producing good urine output and the patient remains in negative fluid balance. She is taking Lasix 40 mg in the morning and 20 mg in the evening. She remains on IV Zosyn. She is also on Aldactone. White cell count is 1.7. Hemoglobin 7.9. Sodium is at 141, bicarb is at 40, BUN is at 18 with a creatinine of 1.0. Objective - Vital Signs Vital signs: Vital Signs Temp 98.7 F 11/04/24 19:32 Pulse 103 H 11/04/24 19:55 Resp 16 11/04/24 19:55 BP 107/64 11/04/24 19:55 Pulse Ox 98 11/04/24 19:32 FiO2 40 11/04/24 12:43 Intake & Output 11/04/24 11/04/24 11/05/24 06:59 18:59 06:59 Intake Total 125 720 Output Total 200 900 Balance -75 -180 Intake: Intake, IV Titration 125 Amount Piperacillin-Tazobactam 3 125 .375 gm In Sodium Chloride 0.9% 100 ml @ 25 mls/hr IVPB Q8H [facility] Rx#: [id number] Oral 720 Output: Urine 200 900 Other: Voiding Method External Catheter External Catheter # Bowel Movements 1 - Exam No acute distress, awake and alert, no respiratory distress, currently on 3 L nasal cannula HEENT examination is grossly unremarkable. Neck supple. Full range of motion. No adenopathy thyromegaly or neck vein distention. Cardiovascular examination reveals regular rhythm rate. S1-S2 normal. No S3 or S4. Heart sounds are distant. Lungs scattered rhonchi and crackles. No wheezes. Breath sounds are equal bilaterally. Abdomen soft without bowel sounds or masses. Extremities are intact. No cyanosis clubbing or edema. Skin is without rash or lesion. Neurologic examination is brief but nonfocal. - Labs CBC & Chem 7: 11/04/24 04:46 11/04/24 04:46 Labs: Abnormal Lab Results - Last 24 Hours (Table) 11/04/24 11/04/24 Range/Units 04:46 04:46 WBC 12.76 H (4.50-10.00) X 10*3/uL RBC 3.74 L (4.10-5.20) X 10*6/uL Hgb 7.9 L (12.0-15.0) g/dL Hct 29.7 L (37.2-46.3) % MCV 79.4 L (80.0-97.0) FL MCH 21.1 L (27.0-32.0) pg MCHC 26.6 L (32.0-37.0) g/dL RDW 22.3 H (11.5-14.5) % Neutrophils # (Manual) 10.85 H (1.80-7.70) X 10*3/uL Eosinophils # (Manual) 0 L (0.04-0.35) X 10*3/uL NRBC/100 WBC Diff 0.02 H (0.00-0.01) X 10*3/uL Hypochromasia (manual) 2+ A (None Seen) Microcytosis (manual) 2+ A (None Seen) Elliptocytes 2+ A (None Seen) Potassium 3.1 L (3.5-5.5) mmol/L Chloride 88 L (96-109) mmol/L Carbon Dioxide 40.3 A* (21.6-31.8) mmol/L Anion Gap 12.70 H (4.00-12.00) mmol/L Est GFR (CKD-EPI) 58 L (>=60) Calcium 7.8 L (8.7-10.3) mg/dL Total Protein 5.6 L (6.2-8.2) g/dL Albumin 3.4 L (3.8-4.9) g/dL Albumin/Globulin Ratio 1.55 L (1.60-3.17) Ratio Assessment and Plan Plan: Acute hypoxemic and hypercapnic respiratory failure, secondary to exacerbation of COPD/CHF. Recent blood gases shows metabolic alkalosis and chronic hypoxic and hypercapnic respiratory failure. The patient is being treated with a combination of bronchodilators, steroids and the patient is also on diuretics utilizing Lasix and Aldactone. The patient has developed significant metabolic alkalosis. The patient utilizing BiPAP on and off. Chest x-ray is consistent with CHF. Of concern is the leukocytosis and the patient is on IV Zosyn on an empiric basis. Procalcitonin level is not elevated. Noted the white cell count is also improving. The patient remains on oxygen at 3 L/min nasal cannula. Chronic hypoxemic respiratory failure. History of hypertension. History of COPD. CHF with valvular heart disease with severe mitral regurgitation, moderate tricuspid regurgitation and severe pulm hypertension on echocardiogram that was done on 11/02/2024 Metabolic alkalosis, likely secondary to diuretics. The patient is negative fluid balance History of hyperlipidemia. History of hypothyroidism. Previous history of CVA. History of restless leg syndrome. Prior history of tobacco use. Plan: Continue same treatment Utilize BiPAP on and off during the day, otherwise while off the BiPAP the patient is on 3 L, will continue BiPAP overnight at the same setting Maintain treated O2 nasal cannula Continue bronchodilators with DuoNeb Continue Perforomist and Pulmicort updrafts twice a day Prednisone burst taper, currently on 40 mg Continue Lasix a 40 mg the morning and 20 mg the evening Continue Aldactone 12.5 mg p.o. daily Diamox 500 mg IV every 12 hours x 2 additional doses Repeat electrolytes in the morning Maintain negative fluid balance Monitor electrolytes Will continue to follow
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
--- NOTE | 2024-11-05 10:18 | CT ---
EXAMINATION TYPE: CT chest abdomen wo con DATE OF EXAM: 11/04/2024 5:35 PM COMPARISON: 11/12/2022 CLINICAL INDICATION: Female, 79 years old with history of possible pna, Possible PNA. TECHNIQUE: CT imaging performed with sagittal coronal reformats. Unenhanced CT of the chest ,abdomen is performed. The lack of intravenous contrast limits evaluation of the solid and hollow viscera. CT DLP: 871 mGycm, Automated exposure control for dose reduction was used. Oral contrast: FINDINGS: CT Chest: LUNGS: Patchy density right lower lobe infiltrate with air bronchograms seen compatible with underlyi ng pneumonia or aspiration pneumonia. There are scattered groundglass infiltrates noted bilaterally l ikely postinflammatory in nature. Calcified pleural plaques seen. 1.3 cm right perihilar pulmonary no dule. MEDIASTINUM: Thoracic aorta is of normal caliber. The heart is enlarged. No evidence for mediastin al mass or adenopathy. Coronary artery calcifications and stents noted. Fixed hiatal hernia. HILAR STRUCTURES: No evidence for mass. No hilar adenopathy is appreciated. OTHER: No significant abnormality. CONTRAST CT ABDOMEN LIVER/GB: The gallbladder surgically absent. No space occupying hepatic lesion. Biliary tree is of no rmal caliber. PANCREAS: No inflammation. No distinct mass. SPLEEN: No splenic enlargement. No lesion seen. ADRENALS: No nodule. No thickening. KIDNEYS/BLADDER: No hydronephrosis. No nephrolithiasis. Bilateral simple renal cysts noted. BOWEL: Visualized bowel loops are of normal caliber. LYMPH NODES: No greater than 1cm abdominal or pelvic lymph nodes areappreciated. AORTA: No significant abnormality. OSSEOUS STRUCTURES: No significant abnormality is seen. OTHER: No significant additional abnormality is seen. IMPRESSION: 1. Right lower lobe infiltrate. [facility], , 11/05/2024 10:15 AM
[2024-11-05 10:42] LABS: Basophils # (A) 0.01 X 10*3/uL (0.00-0.10); Basophils % (A) 0.1 %; Eosinophils # (A) 0 X 10*3/uL (0.04-0.35); Eosinophils % (A) 0 %; HCT 30.2 % (37.2-46.3); HGB 7.9 g/dL (12.0-15.0); Lymphocytes # (A) 0.24 X 10*3/uL (0.90-5.00); Lymphocytes % (A) 3.1 %; MCHC 26.2 g/dL (32.0-37.0); MCV 80.1 FL (80.0-97.0); Mean Platelet Volume 11.5 FL (9.5-12.2); Monocytes # (A) 0.15 X 10*3/uL (0.20-1.00); NRBC Per 100 WBC 0.02 X 10*3/uL (0.00-0.01); Neutrophils # (A) 7.15 X 10*3/uL (1.80-7.70); Neutrophils % (A) 93.8 %; Platelet Count 214 X 10*3/uL (140-440); RBC 3.77 X 10*6/uL (4.10-5.20); WBC 7.63 X 10*3/uL (4.50-10.00)
[2024-11-05 10:57] LABS: ALT 15 U/L (8-44); AST 13 U/L (13-35); Albumin 3.6 g/dL (3.8-4.9); Albumin/Globulin Ratio 1.44 Ratio (1.60-3.17); Alkaline Phosphatase 84 U/L (41-126); Blood Urea Nitrogen 18.7 mg/dL (9.0-27.0); Calcium 8.1 mg/dL (8.7-10.3); Carbon Dioxide 35.6 mmol/L (21.6-31.8); Chloride 92 mmol/L (96-109); Globulin 2.5 g/dL (1.6-3.3); Glucose 195 mg/dL (70-110); Potassium 3.2 mmol/L (3.5-5.5); Sodium 140 mmol/L (135-145); Total Bilirubin 0.5 mg/dL (0.3-1.2); Total Protein 6.1 g/dL (6.2-8.2)
--- NOTE | 2024-11-05 11:10 | PN ---
PROGRESS NOTE DATE OF SERVICE: 11/04/2024 SUBJECTIVE: This 79-year-old woman was admitted with COPD exacerbation, has taken a turn for the worse. The patient had severe acute respiratory failure, respiratory alkalosis as well as change in mental status. The patient was also probably developing pneumonia, which is bilateral. The patient also had some hypertension, indicated some sepsis also. PAST MEDICAL HISTORY: Reviewed. REVIEW OF SYSTEMS: A 14-point review of systems is negative except as mentioned earlier. CURRENT MEDICATIONS: Reviewed. PHYSICAL EXAMINATION: VITAL SIGNS: Pulse is 89, blood pressure n, respirations 17. HEENT: Conjunctivae are normal. CARDIAC: S1, S2. RESPIRATIONS: A few scattered rhonchi. ABDOMEN: Soft. NERVOUS SYSTEM: Nonfocal. LABORATORY DATA: WBC 12.76, hemoglobin 7.9, and sed rate is 30. ABGs noted. CO2 is elevated. CRP 17.6. ASSESSMENT: 1. Chronic obstructive pulmonary disease, acute exacerbation, with bilateral pneumonia. Consider gram-negative pneumonia with possible sepsis and hypotension. Severe sepsis, not present on admission. 2. Hypokalemia. 3. History of congestive heart failure. 4. Hypertension. 5. Multiple complex medical issues. 6. Dysphagia. 7. FULL CODE. RECOMMENDATIONS: Continue supplement potassium. Continue the antibiotics. Infectious disease evaluation. Closely follow with Pulmonary. I would also recommend to continue with some IV steroids as well. Prognosis is guarded. Further recommendations to follow. MMODL / IJN: [id number] / EMELINA
--- NOTE | 2024-11-05 11:44 | XR ---
EXAMINATION TYPE: XR chest 1V portable DATE OF EXAM: 11/05/2024 9:26 AM COMPARISON: Chest radiographs from 11/04/2024 CLINICAL INDICATION: Female, 79 years old with history of pneumonia; [facility] TECHNIQUE: XR chest 1V portable Frontal view of the chest. FINDINGS: Lungs/Pleura: Right lower lobe airspace opacities. There is no evidence of pleural effusion, focal co nsolidation, or pneumothorax. Pulmonary vascularity: Unremarkable. Heart/mediastinum: Cardiomediastinal silhouette is unremarkable. Musculoskeletal: No acute osseous pathology. Stable right clavicle and right shoulder surgical change s with hardware. Other findings: None IMPRESSION: Right lower lobe airspace opacities. [facility], , 11/05/2024 11:42 AM
[2024-11-05] MEDS: POTASSIUM CHLORIDE ER 20 MEQ TAB.ER PO SCH (12:05)
[2024-11-05 13:26] VITALS: BMI 21.5
--- NOTE | 2024-11-05 15:48 | P.PN ---
Subjective Progress Note Date: 11/05/24 On 11/01/2024, the patient is being seen for a follow-up. The patient is in the hospital for an acute hypoxic/hypercapnic respiratory failure secondary to COPD/CHF exacerbation. The patient also has history of hypertension, hyperlipidemia and hypothyroidism along with his other medical problems. Upon a rrival to the hospital, the patient was placed on a BiPAP as the patient was found to have an acute on top of chronic hypercapnic respiratory failure and respiratory acidosis. proBNP level was in the 8000 range and the viral screen was negative and the chest x-ray was consistent with cardiomegaly and CHF. The patient was further stabilized and was taken off the BiPAP and the patient is currently on oxygen at 3 L/min nasal cannula. She is feeling better. She is less short of breath. She is covered with DuoNeb nebulized treatments [id number], she is also on a combination of Perforomist and Pulmicort updrafts twice a day, the patient is on IV Solu-Medrol 40 mg every 12 hours. She is on Aldactone 12.5 mg p.o. daily and Lasix 40 mg IV every 12 hours. The fluid balance over the past 24 hours has been -2.9 L -535 cc. The patient was also seen by cardiology. Most recent echocardiogram done on 11/13/2022 showed a normal LV function and the patient had severe mitral annular calcification with moderate to severe mitral regurgitation and moderate to severe pulmonary hypertension. On 11/02/2024, the patient is being seen for a follow-up. The patient is an acute COPD/CHF exacerbation. She is currently off the BiPAP and the patient is currently on oxygen at 3 L/min nasal cannula. No new complaints for now. She reports improvement. She remains on DuoNeb nebulized treatments [id number], Perforomist and Pulmicort nebulized treatments twice a day, Lasix 40 mg in the morning and 20 mg in the evening and Aldactone 12.5 mg p.o. daily. She is also on prednisone 40 mg p.o. daily as part of a burst taper. She is on IV iron and the patient's hemoglobin is at 7.1 with a white cell count of 7.2 and a platelet count of 175. Electrolytes are all stable. BUN is 17 with a creatinine of 0.9. Procalcitonin level is at 0.15. Repeat chest x-ray from today is consistent with CHF with increased pulm vascular markings and possibly some right basilar atelectasis/infiltrates. Findings are essentially stable on today's chest x-ray. Echocardiogram was also completed and the patient was found to have a preserved LV function with an ejection fraction of 60 to 65%. The patient also has severe mitral regurgitation, moderate tricuspid regurgitation, severe pulm hypertension. On 11/03/2024, the patient is being seen for a follow-up. Earlier in the morning, the patient was found to be having some increased shortness of breath. Based on that, the patient was given a blood gas that showed compensated hypoxic and hypercapnic respiratory failure. The patient's pH was at 7.48 with a pCO2 of 66 and pO2 of 66. A follow-up chest x-ray was done and it showed cardiomegal y and pulmonary vascular congestion consistent with CHF. Nevertheless, the patient's white cell count was noted to be elevated at 19.2 with a hemoglobin of 8 and platelet of 175. Serum bicarb is at 41. Sodium levels at 139 and a potassium level is at 3.4. The procalcitonin level is at 0.15. The patient remains on DuoNeb of chest, Perforomist and Pulmicort nebulized treatments twice a day and the patient is also on Lasix 40 mg in the morning and 20 mg in the evening. She remains on IV Zosyn and a prednisone burst taper starting with 40 mg p.o. daily. She remains on Aldactone 25 mg p.o. daily. She is also on metoprolol XL 50 mg p.o. daily. The overall fluid balance over the past 24 ho urs is -1.8 L. Echocardiogram shows a preserved LV function, severe MR, severe pulmonary pretension. On 11/04/2024, the patient is lethargic and weak. Denies having any shortness of breath at rest. She remains on 3 Suboxone by nasal cannula and the patient on and off is using the BiPAP during the day. Her previous blood gas showed a compensated respiratory acidosis, likely chronic. The patient has significant metabolic alkalosis and the patient was given Diamox. Serum bicarb is at 40. H emoglobin is at 7.9. She is still on oral Lasix and she is producing good urine output and the patient remains in negative fluid balance. She is taking Lasix 40 mg in the morning and 20 mg in the evening. She remains on IV Zosyn. She is also on Aldactone. White cell count is 1.7. Hemoglobin 7.9. Sodium is at 141, bicarb is at 40, BUN is at 18 with a creatinine of 1.0. On 11/05/2024, the patient is off the BiPAP. She was able to utilize the BiPAP overnight for a brief period of time. She is currently on 3 Suboxone by nasal cannula. She still being diuresed with IV Lasix and she was also given Diamox. The patient is doing well. She is calm and comfortable. No dyspnea at rest. No fever or chills. She remains on empiric antibiotic coverage with IV Zosyn. She remains on Lasix and Aldactone. She is receiving Lasix 40 mg in the morning and 20 mg in the evening orally and she is also on Aldactone 12.5 mg p.o. daily. Fluid balance is -630 cc over the past 24 hours. The white cell count 7.6 with a hemoglobin 7.9 and platelet count of 214. Serum bicarb is at 35 and a sodium level is 140 with a potassium level of 3.2. BUN is 18 with a creatinine of 1.1. Objective - Vital Signs Vital signs: Vital Signs Temp 98.2 F 11/05/24 07:58 Pulse 86 11/05/24 10:08 Resp 19 11/05/24 07:58 BP 100/63 11/05/24 07:58 Pulse Ox 100 11/05/24 07:58 FiO2 40 11/04/24 23:24 Intake & Output 11/04/24 11/05/24 11/05/24 18:59 06:59 18:59 Intake Total 720 240 Output Total 900 450 Balance -180 -450 240 Intake: Oral 720 240 Output: Urine 900 450 Other: Voiding Method External Catheter External Catheter - Exam No acute distress, awake and alert, no respiratory distress, currently on 3 L nasal cannula HEENT examination is grossly unremarkable. Neck supple. Full range of motion. No adenopathy thyromegaly or neck vein distention. Cardiovascular examination reveals regular rhythm rate. S1-S2 normal. No S3 or S4. Heart sounds are distant. Lungs scattered rhonchi and crackles. No wheezes. Breath sounds are equal bilaterally. Abdomen soft without bowel sounds or masses. Extremities are intact. No cyanosis clubbing or edema. Skin is without rash or lesion. Neurologic examination is brief but nonfocal. - Labs CBC & Chem 7: 11/05/24 06:05 11/05/24 06:05 Labs: Abnormal Lab Results - Last 24 Hours (Table) 11/05/24 11/05/24 Range/Units 06:05 06:05 RBC 3.77 L (4.10-5.20) X 10*6/uL Hgb 7.9 L (12.0-15.0) g/dL Hct 30.2 L (37.2-46.3) % MCH 21.0 L (27.0-32.0) pg MCHC 26.2 L (32.0-37.0) g/dL RDW 23.0 H (11.5-14.5) % Immature Gran # 0.08 H (0.00-0.04) X 10*3/uL Lymphocytes # 0.24 L (0.90-5.00) X 10*3/uL Monocytes # 0.15 L (0.20-1.00) X 10*3/uL Eosinophils # 0 L (0.04-0.35) X 10*3/uL NRBC/100 WBC Diff 0.02 H (0.00-0.01) X 10*3/uL Potassium 3.2 L (3.5-5.5) mmol/L Chloride 92 L (96-109) mmol/L Carbon Dioxide 35.6 H (21.6-31.8) mmol/L Anion Gap 12.40 H (4.00-12.00) mmol/L Est GFR (CKD-EPI) 51 L (>=60) Glucose 195 H (70-110) mg/dL Calcium 8.1 L (8.7-10.3) mg/dL Total Protein 6.1 L (6.2-8.2) g/dL Albumin 3.6 L (3.8-4.9) g/dL Albumin/Globulin Ratio 1.44 L (1.60-3.17) Ratio Microbiology - Last 24 Hours (Table) 11/03/24 12:53 Blood Culture - Preliminary Blood Assessment and Plan Plan: Acute hypoxemic and hypercapnic respiratory failure, secondary to exacerbation of COPD/CHF. Recent blood gases shows metabolic alkalosis and chronic hypoxic and hypercapnic respiratory failure. The patient is being treated with a combination of bronchodilators, steroids and the patient is also on diuretics utilizing Lasix and Aldactone. The patient has developed significant metabolic alkalosis. The patient utilizing BiPAP on and off. Chest x-ray is consistent with CHF. Of concern is the leukocytosis and the patient is on IV Zosyn on an empiric basis. Procalcitonin level is not elevated. Noted the white cell co unt is also improving. The patient remains on oxygen at 3 L/min nasal cannula. Chronic hypoxemic respiratory failure. Metabolic alkalosis secondary to diuresis History of hypertension. History of COPD. CHF with valvular heart disease with severe mitral regurgitation, moderate tricuspid regurgitation and severe pulm hypertension on echocardiogram that was done on 11/02/2024 Metabolic alkalosis, likely secondary to diuretics. The patient is negative fluid balance History of hyperlipidemia. History of hypothyroidism. Previous history of CVA. History of restless leg syndrome. Prior history of tobacco use. Plan: Continue same treatment Continue oral Lasix and Aldactone Negative fluid balance Off BiPAP the patient is on 3 L, nasal cannula Maintain treated O2 nasal cannula Continue bronchodilators with DuoNeb Continue Perforomist and Pulmicort updrafts twice a day Prednisone burst taper, currently on 40 mg Continue Lasix a 40 mg the morning and 20 mg the evening Continue Aldactone 12.5 mg p.o. daily Diamox was given and will monitor the serum bicarb level Repeat electrolytes in the morning Maintain negative fluid balance Monitor electrolytes Will continue to follow
[2024-11-05] MEDS: valACYclovir HCL 1,000 MG TABLET PO SCH (20:53)
--- NOTE | 2024-11-06 03:19 | PN ---
PROGRESS NOTE DATE OF SERVICE: 11/05/2024 SUBJECTIVE: This is a 79-year-old woman, who was admitted with COPD exacerbation, also had bilateral pneumonia and possible sepsis, change in mental status. The patient had acute respiratory failure. The patient underwent a CT scan of the abdomen, which showed right lower lobe infiltrate. Otherwise, the patient is on IV antibiotics and with BiPAP, sensorium appears to be improving and multiple consultants are following the patient closely. PAST MEDICAL HISTORY: Reviewed. REVIEW OF SYSTEMS: A 14-point review of systems is negative except as mentioned earlier. CURRENT MEDICATIONS: Reviewed. PHYSICAL EXAMINATION: VITAL SIGNS: Pulse is 98, blood pressure 130/72, respirations 18. HEENT: Conjunctivae normal. CARDIAC: S1, S2. RESPIRATIONS: A few scattered rhonchi and crackles. ABDOMEN: Soft. NERVOUS SYSTEM: Nonfocal. LABORATORY DATA: Reviewed. CO2 of 72. ASSESSMENT: 1. Chronic obstructive pulmonary disease acute exacerbation with acute bilateral pneumonia, possibly gram-negative with sepsis and hypotension with severe sepsis not present on admission. 2. Hypokalemia. 3. Acute hypoxic respiratory failure, on BiPAP. 4. History of congestive heart failure. 5. Hypertension. 6. Multiple complex medical issues. 7. Dysphagia. 8. FULL CODE. RECOMMENDATIONS: Recommend to continue current management and continue symptomatic treatment. Otherwise, repeat labs. Continue with BiPAP. PT, OT evaluation. The patient might require ECF rehab. Follow closely with multiple consultants. Guarded prognosis. Further recommendations to follow. MMODL / IJN: [id number] /
[2024-11-06 06:01] LABS: African American GFR (CKD) 54 (>60 ml/min/1.73 sqM); Anion Gap 2 mmol/L; Blood Urea Nitrogen 21 mg/dL (7-17); Calcium 8.6 mg/dL (8.4-10.2); Carbon Dioxide 37 mmol/L (22-30); Chloride 98 mmol/L (98-107); Glucose 136 mg/dL (74-99); Non-African American GFR(CKD) 47 (>60 ml/min/1.73 sqM); Potassium 3.3 mmol/L (3.5-5.1); Sodium 137 mmol/L (137-145)
[2024-11-06 10:44] LABS: Basophils # (A) 0.01 X 10*3/uL (0.00-0.10); Basophils % (A) 0.1 %; Eosinophils # (A) 0 X 10*3/uL (0.04-0.35); Eosinophils % (A) 0 %; HCT 31.6 % (37.2-46.3); HGB 8.1 g/dL (12.0-15.0); Lymphocytes % (A) 1.5 %; MCH 21.3 pg (27.0-32.0); MCHC 25.6 g/dL (32.0-37.0); MCV 82.9 FL (80.0-97.0); Mean Platelet Volume 11.4 FL (9.5-12.2); Monocytes # (A) 0.38 X 10*3/uL (0.20-1.00); Monocytes % (A) 2.9 %; NRBC Per 100 WBC 0.02 X 10*3/uL (0.00-0.01); Neutrophils # (A) 12.38 X 10*3/uL (1.80-7.70); Neutrophils % (A) 94.8 %; Platelet Count 228 X 10*3/uL (140-440); RBC 3.81 X 10*6/uL (4.10-5.20); RDW 23.9 % (11.5-14.5); WBC 13.06 X 10*3/uL (4.50-10.00)
--- NOTE | 2024-11-06 14:32 | P.PN ---
Subjective Progress Note Date: 11/06/24 On 11/01/2024, the patient is being seen for a follow-up. The patient is in the hospital for an acute hypoxic/hypercapnic respiratory failure secondary to COPD/CHF exacerbation. The patient also has history of hypertension, hyperlipidemia and hypothyroidism along with his other medical problems. Upon a rrival to the hospital, the patient was placed on a BiPAP as the patient was found to have an acute on top of chronic hypercapnic respiratory failure and respiratory acidosis. proBNP level was in the 8000 range and the viral screen was negative and the chest x-ray was consistent with cardiomegaly and CHF. The patient was further stabilized and was taken off the BiPAP and the patient is currently on oxygen at 3 L/min nasal cannula. She is feeling better. She is less short of breath. She is covered with DuoNeb nebulized treatments [id number], she is also on a combination of Perforomist and Pulmicort updrafts twice a day, the patient is on IV Solu-Medrol 40 mg every 12 hours. She is on Aldactone 12.5 mg p.o. daily and Lasix 40 mg IV every 12 hours. The fluid balance over the past 24 hours has been -2.9 L -535 cc. The patient was also seen by cardiology. Most recent echocardiogram done on 11/13/2022 showed a normal LV function and the patient had severe mitral annular calcification with moderate to severe mitral regurgitation and moderate to severe pulmonary hypertension. On 11/02/2024, the patient is being seen for a follow-up. The patient is an acute COPD/CHF exacerbation. She is currently off the BiPAP and the patient is currently on oxygen at 3 L/min nasal cannula. No new complaints for now. She reports improvement. She remains on DuoNeb nebulized treatments [id number], Perforomist and Pulmicort nebulized treatments twice a day, Lasix 40 mg in the morning and 20 mg in the evening and Aldactone 12.5 mg p.o. daily. She is also on prednisone 40 mg p.o. daily as part of a burst taper. She is on IV iron and the patient's hemoglobin is at 7.1 with a white cell count of 7.2 and a platelet count of 175. Electrolytes are all stable. BUN is 17 with a creatinine of 0.9. Procalcitonin level is at 0.15. Repeat chest x-ray from today is consistent with CHF with increased pulm vascular markings and possibly some right basilar atelectasis/infiltrates. Findings are essentially stable on today's chest x-ray. Echocardiogram was also completed and the patient was found to have a preserved LV function with an ejection fraction of 60 to 65%. The patient also has severe mitral regurgitation, moderate tricuspid regurgitation, severe pulm hypertension. On 11/03/2024, the patient is being seen for a follow-up. Earlier in the morning, the patient was found to be having some increased shortness of breath. Based on that, the patient was given a blood gas that showed compensated hypoxic and hypercapnic respiratory failure. The patient's pH was at 7.48 with a pCO2 of 66 and pO2 of 66. A follow-up chest x-ray was done and it showed cardiomegal y and pulmonary vascular congestion consistent with CHF. Nevertheless, the patient's white cell count was noted to be elevated at 19.2 with a hemoglobin of 8 and platelet of 175. Serum bicarb is at 41. Sodium levels at 139 and a potassium level is at 3.4. The procalcitonin level is at 0.15. The patient remains on DuoNeb of chest, Perforomist and Pulmicort nebulized treatments twice a day and the patient is also on Lasix 40 mg in the morning and 20 mg in the evening. She remains on IV Zosyn and a prednisone burst taper starting with 40 mg p.o. daily. She remains on Aldactone 25 mg p.o. daily. She is also on metoprolol XL 50 mg p.o. daily. The overall fluid balance over the past 24 ho urs is -1.8 L. Echocardiogram shows a preserved LV function, severe MR, severe pulmonary pretension. On 11/04/2024, the patient is lethargic and weak. Denies having any shortness of breath at rest. She remains on 3 Suboxone by nasal cannula and the patient on and off is using the BiPAP during the day. Her previous blood gas showed a compensated respiratory acidosis, likely chronic. The patient has significant metabolic alkalosis and the patient was given Diamox. Serum bicarb is at 40. H emoglobin is at 7.9. She is still on oral Lasix and she is producing good urine output and the patient remains in negative fluid balance. She is taking Lasix 40 mg in the morning and 20 mg in the evening. She remains on IV Zosyn. She is also on Aldactone. White cell count is 1.7. Hemoglobin 7.9. Sodium is at 141, bicarb is at 40, BUN is at 18 with a creatinine of 1.0. On 11/05/2024, the patient is off the BiPAP. She was able to utilize the BiPAP overnight for a brief period of time. She is currently on 3 Suboxone by nasal cannula. She still being diuresed with IV Lasix and she was also given Diamox. The patient is doing well. She is calm and comfortable. No dyspnea at rest. No fever or chills. She remains on empiric antibiotic coverage with IV Zosyn. She remains on Lasix and Aldactone. She is receiving Lasix 40 mg in the morning and 20 mg in the evening orally and she is also on Aldactone 12.5 mg p.o. daily. Fluid balance is -630 cc over the past 24 hours. The white cell count 7.6 with a hemoglobin 7.9 and platelet count of 214. Serum bicarb is at 35 and a sodium level is 140 with a potassium level of 3.2. BUN is 18 with a creatinine of 1.1. On 11/06/2024, the patient remains on 3 days of oxygen by nasal cannula. She remains in a negative fluid balance as the patient is receiving Lasix and Aldactone. The fluid balance is -630 cc over the past 24 hours. Serum bicarb level is down to 37 and the patient received few doses of Diamox. Sodium is at 137. Potassium level needs to be replaced at 3.3. The white cell count is at 13 with a hemoglobin 8.1 and a platelet count of 228. No other significant issues or complaints. She is weak and debilitated. She has valvular heart disease with considerable degree of mitral regurgitation. Not utilizing BiPAP for now. No dyspnea at rest. Objective - Vital Signs Vital signs: Vital Signs Temp 97.7 F 11/06/24 07:16 Pulse 83 11/06/24 07:59 Resp 16 11/06/24 07:16 BP 103/55 11/06/24 07:16 Pulse Ox 95 11/06/24 07:16 FiO2 40 11/04/24 23:24 Intake & Output 11/05/24 11/06/24 11/06/24 18:59 06:59 18:59 Intake Total 1440 540 Output Total 1000 Balance 440 540 Weight 56.9 kg Intake: Oral 1440 540 Output: Urine 1000 Other: Voiding Method External Catheter External Catheter # Voids 1 - Exam No acute distress, awake and alert, no respiratory distress, currently on 3 L nasal cannula HEENT examination is grossly unremarkable. Neck supple. Full range of motion. No adenopathy thyromegaly or neck vein distention. Cardiovascular examination reveals regular rhythm rate. S1-S2 normal. No S3 or S4. Heart sounds are distant. Lungs scattered rhonchi and crackles. No wheezes. Breath sounds are equal bilaterally. Abdomen soft without bowel sounds or masses. Extremities are intact. No cyanosis clubbing or edema. Skin is without rash or lesion. Neurologic examination is brief but nonfocal. - Labs CBC & Chem 7: 11/06/24 05:05 11/06/24 05:05 Labs: Abnormal Lab Results - Last 24 Hours (Table) 11/06/24 11/06/24 Range/Units 05:05 05:05 WBC 13.06 H (4.50-10.00) X 10*3/uL RBC 3.81 L (4.10-5.20) X 10*6/uL Hgb 8.1 L (12.0-15.0) g/dL Hct 31.6 L (37.2-46.3) % MCH 21.3 L (27.0-32.0) pg MCHC 25.6 L (32.0-37.0) g/dL RDW 23.9 H (11.5-14.5) % Immature Gran # 0.09 H (0.00-0.04) X 10*3/uL Neutrophils # 12.38 H (1.80-7.70) X 10*3/uL Lymphocytes # 0.20 L (0.90-5.00) X 10*3/uL Eosinophils # 0 L (0.04-0.35) X 10*3/uL NRBC/100 WBC Diff 0.02 H (0.00-0.01) X 10*3/uL Potassium 3.3 L (3.5-5.1) mmol/L Carbon Dioxide 37 H (22-30) mmol/L BUN 21 H (7-17) mg/dL Creatinine 1.13 H (0.52-1.04) mg/dL Glucose 136 H (74-99) mg/dL Microbiology - Last 24 Hours (Table) 11/03/24 12:53 Blood Culture - Preliminary Blood Assessment and Plan Plan: Acute hypoxemic and hypercapnic respiratory failure, secondary to exacerbation of COPD/CHF. Recent blood gases shows metabolic alkalosis and chronic hypoxic and hypercapnic respiratory failure. The patient is being treated with a combination of bronchodilators, steroids and the patient is also on diuretics utilizing Lasix and Aldactone. The patient has developed significant metabolic alkalosis. The patient utilizing BiPAP on and off. Chest x-ray is consistent with CHF. Of concern is the leukocytosis and the patient is on IV Zosyn on an empiric basis. Procalcitonin level is not elevated. Noted the white cell c ount is also improving. The patient remains on oxygen at 3 L/min nasal cannula. Chronic hypoxemic respiratory failure. Metabolic alkalosis secondary to diuresis History of hypertension. History of COPD. CHF with valvular heart disease with severe mitral regurgitation, moderate tricuspid regurgitation and severe pulm hypertension on echocardiogram that was done on 11/02/2024 Metabolic alkalosis, likely secondary to diuretics. The patient is negative fluid balance History of hyperlipidemia. History of hypothyroidism. Previous history of CVA. History of restless leg syndrome. Prior history of tobacco use. Plan: Clinically stable Oxygenation stable and she remains on 3 L O2 nasal cannula Continue same treatment Continue oral Lasix and Aldactone, remains in negative fluid balance Serum bicarb level is dropped down to 37 Off BiPAP the patient is on 3 L, nasal cannula Maintain treated O2 nasal cannula Continue bronchodilators with DuoNeb Continue Perforomist and Pulmicort updrafts twice a day Prednisone burst taper, currently on 40 mg Continue Lasix a 40 mg the morning and 20 mg the evening Continue Aldactone 12.5 mg p.o. daily Diamox was given and will monitor the serum bicarb level Repeat electrolytes in the morning Maintain negative fluid balance Monitor electrolytes Will continue to follow
--- NOTE | 2024-11-06 14:38 | P.PN ---
Subjective Progress Note Date: 11/05/24 Principal diagnosis: Reason for follow-up is leukocytosis and pneumonia Patient is a 79-year-old female with a past medical history significant for COPD CVA TIA hypertension hyperlipidemia osteoarthritis presenting to the hospital for evaluation of increasing shortness of breath patient did have a normal white count admission subsequent did have a jump in the white count with the patient was started on Zosyn ID was consulted for further management. On today's evaluation that is 11/05/2024, the patient continues to be afebrile, the patient is on 3 L current oxygen and breathing comfortably, the Pt denies having any chest pain or any worsening cough, the patient denies having any abdominal pain no vomiting or any diarrhea has been reported by the nursing staff Patient white normalized to 7.63, CT chest abdominal with right lower lobe infiltrate, blood cultures has been negative Objective - Vital Signs Vital signs: Vital Signs Temp 98.2 F 11/05/24 07:58 Pulse 86 11/05/24 10:08 Resp 19 11/05/24 07:58 BP 100/63 11/05/24 07:58 Pulse Ox 100 11/05/24 07:58 FiO2 40 11/04/24 23:24 Intake & Output 11/04/24 11/05/24 11/05/24 18:59 06:59 18:59 Intake Total 720 240 Output Total 900 450 Balance -180 -450 240 Intake: Oral 720 240 Output: Urine 900 450 Other: Voiding Method External Catheter External Catheter - Exam GENERAL DESCRIPTION: An elderly female lying in bed in no distress RESPIRATORY SYSTEM: Unlabored breathing , decreased breath sounds at bases HEART: S1 S2 regular rate and rhythm , ABDOMEN: Soft , no tenderness EXTREMITIES: No edema feet - Labs CBC & Chem 7: 11/06/24 05:05 11/06/24 05:05 Labs: Abnormal Lab Results - Last 24 Hours (Table) 11/05/24 11/05/24 Range/Units 06:05 06:05 RBC 3.77 L (4.10-5.20) X 10*6/uL Hgb 7.9 L (12.0-15.0) g/dL Hct 30.2 L (37.2-46.3) % MCH 21.0 L (27.0-32.0) pg MCHC 26.2 L (32.0-37.0) g/dL RDW 23.0 H (11.5-14.5) % Immature Gran # 0.08 H (0.00-0.04) X 10*3/uL Lymphocytes # 0.24 L (0.90-5.00) X 10*3/uL Monocytes # 0.15 L (0.20-1.00) X 10*3/uL Eosinophils # 0 L (0.04-0.35) X 10*3/uL NRBC/100 WBC Diff 0.02 H (0.00-0.01) X 10*3/uL Potassium 3.2 L (3.5-5.5) mmol/L Chloride 92 L (96-109) mmol/L Carbon Dioxide 35.6 H (21.6-31.8) mmol/L Anion Gap 12.40 H (4.00-12.00) mmol/L Est GFR (CKD-EPI) 51 L (>=60) Glucose 195 H (70-110) mg/dL Calcium 8.1 L (8.7-10.3) mg/dL Total Protein 6.1 L (6.2-8.2) g/dL Albumin 3.6 L (3.8-4.9) g/dL Albumin/Globulin Ratio 1.44 L (1.60-3.17) Ratio Microbiology - Last 24 Hours (Table) 11/03/24 12:53 Blood Culture - Preliminary Blood Assessment and Plan (1) Leukocytosis Current Visit: Yes Status: Acute Code(s): D72.829 - ELEVATED WHITE BLOOD CELL COUNT, UNSPECIFIED SNOMED Code(s): 361686432 (2) Allergy to multiple antibiotics Current Visit: Yes Status: Acute Code(s): Z88.1 - ALLERGY STATUS TO OTHER ANTIBIOTIC AGENTS SNOMED Code(s): 411724801 Plan: 1patient initially presented to the hospital with increasing shortness of breath and cough which is likely multifactorial possibly related to COPD exacerbation tracheobronchitis/CHF patient was noticed to have increasing white count which could be related to the steroids however the white count did came down after the patient started on Zosyn and possible component of pneumonia not entirely excluded. 2patient with multiple antibiotic ALLERGIES that would limit the number of antibiotic safe to use. 3patient did have CT of the chest abdominal pelvis suggestive of right lower infiltrate concerning for possible pneumonia ng. 4patient white count has normalized continue with Zosyn will transition to oral antibiotic on discharge Dictation was produced using [employer] dictation software. please excuse any grammatical, word or spelling errors. Time with Patient: Less than 30
--- NOTE | 2024-11-06 14:39 | P.PN ---
Subjective Progress Note Date: 11/06/24 Principal diagnosis: Reason for follow-up is leukocytosis and pneumonia Patient is a 79-year-old female with a past medical history significant for COPD CVA TIA hypertension hyperlipidemia osteoarthritis presenting to the hospital for evaluation of increasing shortness of breath patient did have a normal white count admission subsequent did have a jump in the white count with the patient was started on Zosyn ID was consulted for further management. On today's evaluation that is 11/06/2024, patient did not have any fever and denies any chills, patient is breathing comfortably on 3 L current oxygen, patient with no chest pain did have mild cough patient did not have any abdominal pain nausea vomiting or any loose stools. Patient white count is up to 13.06 today Objective - Vital Signs Vital signs: Vital Signs Temp 97.0 F L 11/06/24 11:53 Pulse 83 11/06/24 11:56 Resp 16 11/06/24 11:53 BP 95/60 11/06/24 11:53 Pulse Ox 100 11/06/24 11:53 FiO2 40 11/04/24 23:24 Intake & Output 11/05/24 11/06/24 11/06/24 18:59 06:59 18:59 Intake Total 1440 540 Output Total 1000 Balance 440 540 Weight 56.9 kg Intake: Oral 1440 540 Output: Urine 1000 Other: Voiding Method External Catheter External Catheter # Voids 1 - Exam GENERAL DESCRIPTION: An elderly female lying in bed in no distress RESPIRATORY SYSTEM: Unlabored breathing , decreased breath sounds at bases HEART: S1 S2 regular rate and rhythm , ABDOMEN: Soft , no tenderness EXTREMITIES: No edema feet - Labs CBC & Chem 7: 11/06/24 05:05 11/06/24 05:05 Labs: Abnormal Lab Results - Last 24 Hours (Table) 11/06/24 11/06/24 Range/Units 05:05 05:05 WBC 13.06 H (4.50-10.00) X 10*3/uL RBC 3.81 L (4.10-5.20) X 10*6/uL Hgb 8.1 L (12.0-15.0) g/dL Hct 31.6 L (37.2-46.3) % MCH 21.3 L (27.0-32.0) pg MCHC 25.6 L (32.0-37.0) g/dL RDW 23.9 H (11.5-14.5) % Immature Gran # 0.09 H (0.00-0.04) X 10*3/uL Neutrophils # 12.38 H (1.80-7.70) X 10*3/uL Lymphocytes # 0.20 L (0.90-5.00) X 10*3/uL Eosinophils # 0 L (0.04-0.35) X 10*3/uL NRBC/100 WBC Diff 0.02 H (0.00-0.01) X 10*3/uL Potassium 3.3 L (3.5-5.1) mmol/L Carbon Dioxide 37 H (22-30) mmol/L BUN 21 H (7-17) mg/dL Creatinine 1.13 H (0.52-1.04) mg/dL Glucose 136 H (74-99) mg/dL Microbiology - Last 24 Hours (Table) 11/03/24 12:53 Blood Culture - Preliminary Blood Assessment and Plan (1) Leukocytosis Current Visit: Yes Status: Acute Code(s): D72.829 - ELEVATED WHITE BLOOD CELL COUNT, UNSPECIFIED SNOMED Code(s): 017199103 (2) Allergy to multiple antibiotics Current Visit: Yes Status: Acute Code(s): Z88.1 - ALLERGY STATUS TO OTHER ANTIBIOTIC AGENTS SNOMED Code(s): 708083036 Plan: 1patient initially presented to the hospital with increasing shortness of breath and cough which is likely multifactorial possibly related to COPD exacerbation tracheobronchitis/CHF patient was noticed to have increasing white count which could be related to the steroids however the white count did came down after the patient started on Zosyn and possible component of pneumonia not entirely excluded. 2patient with multiple antibiotic ALLERGIES that would limit the number of antibiotic safe to use. 3patient did have CT of the chest abdominal pelvis suggestive of right lower infiltrate concerning for possible pneumonia ng. 4patient white count has normalized yesterday but is slightly up today questionably medication related as no evidence of any worsening infection continue Zosyn Dictation was produced using [employer] dictation software. please excuse any grammatical, word or spelling errors. Time with Patient: Less than 30
[2024-11-06] MEDS: HYDROcodone/APAP 5-325MG 1 EACH TAB PO PRN (17:16)
[2024-11-06] MEDS: POTASSIUM CHLORIDE ER 20 MEQ TAB.ER PO SCH (20:23)
--- NOTE | 2024-11-07 11:55 | P.PN ---
Subjective Progress Note Date: 11/06/24 The patient is in the hospital for an acute hypoxic/hypercapnic respiratory failure secondary to COPD/CHF exacerbation. The patient also has history of hypertension, hyperlipidemia and hypothyroidism along with his other medical problems. Upon arrival to the hospital, the patient was placed on a BiPAP as the patient was found to have an acute on top of chronic hypercapnic respiratory failure and respiratory acidosis. proBNP level was in the 8000 range and the viral screen was negative and the chest x-ray was consistent with cardiomegaly and CHF. The patient was further stabilized and was taken off the BiPAP and the patient is currently on oxygen at 3 L/min nasal cannula. She is feeling better. She is less short of breath. She is covered with DuoNeb nebulized treatments [id number], she is also on a combination of Perforomist and Pulmicort updrafts twice a day, the patient is on IV Solu-Medrol 40 mg every 12 hours. She is on Aldactone 12.5 mg p.o. daily and Lasix 40 mg IV every 12 hours. The fluid balance over the past 24 hours has been -2.9 L -535 cc. The patient was also seen by cardiology. Most recent echocardiogram done on 11/13/2022 showed a normal LV function and the patient had severe mitral annular calcification with moderate to severe mitral regurgitation and moderate to severe pulmonary hypertension. Objective - Vital Signs Vital signs: Vital Signs Temp 97.0 F L 11/06/24 11:53 Pulse 83 11/06/24 11:56 Resp 16 11/06/24 11:53 BP 95/60 11/06/24 11:53 Pulse Ox 100 11/06/24 11:53 FiO2 40 11/04/24 23:24 Intake & Output 11/05/24 11/06/24 11/06/24 18:59 06:59 18:59 Intake Total 1440 540 Output Total 1000 Balance 440 540 Weight 56.9 kg Intake: Oral 1440 540 Output: Urine 1000 Other: Voiding Method External Catheter External Catheter # Voids 1 - Exam No acute distress, awake and alert, no respiratory distress, currently on 3 L nasal cannula HEENT examination is grossly unremarkable. Neck supple. Full range of motion. No adenopathy thyromegaly or neck vein distention. Cardiovascular examination reveals regular rhythm rate. S1-S2 normal. No S3 or S4. Heart sounds are distant. Lungs scattered rhonchi and crackles. No wheezes. Breath sounds are equal bilaterally. Abdomen soft without bowel sounds or masses. Extremities are intact. No cyanosis clubbing or edema. Neurologic examination is brief but nonfocal. - Labs CBC & Chem 7: 11/06/24 05:05 11/06/24 05:05 Labs: Abnormal Lab Results - Last 24 Hours (Table) 11/06/24 11/06/24 Range/Units 05:05 05:05 WBC 13.06 H (4.50-10.00) X 10*3/uL RBC 3.81 L (4.10-5.20) X 10*6/uL Hgb 8.1 L (12.0-15.0) g/dL Hct 31.6 L (37.2-46.3) % MCH 21.3 L (27.0-32.0) pg MCHC 25.6 L (32.0-37.0) g/dL RDW 23.9 H (11.5-14.5) % Immature Gran # 0.09 H (0.00-0.04) X 10*3/uL Neutrophils # 12.38 H (1.80-7.70) X 10*3/uL Lymphocytes # 0.20 L (0.90-5.00) X 10*3/uL Eosinophils # 0 L (0.04-0.35) X 10*3/uL NRBC/100 WBC Diff 0.02 H (0.00-0.01) X 10*3/uL Potassium 3.3 L (3.5-5.1) mmol/L Carbon Dioxide 37 H (22-30) mmol/L BUN 21 H (7-17) mg/dL Creatinine 1.13 H (0.52-1.04) mg/dL Glucose 136 H (74-99) mg/dL Microbiology - Last 24 Hours (Table) 11/03/24 12:53 Blood Culture - Preliminary Blood Assessment and Plan Assessment: Acute on chronic hypoxemic and hypercapnic respiratory failure, secondary to exacerbation of COPD/CHF. Recent blood gases shows metabolic alkalosis and ch ronic hypoxic and hypercapnic respiratory failure. The patient is being treated with a combination of bronchodilators, steroids and the patient is also on diuretics utilizing Lasix and Aldactone. The patient has developed significant metabolic alkalosis. The patient utilizing BiPAP on and off. Chest x-ray is consistent with CHF. Of concern is the leukocytosis and the patient is on IV Zosyn on an empiric basis. Procalcitonin level is not elevated. Noted the white cell count is also improving. The patient remains on oxygen at 3 L/min nasal cannula. Metabolic alkalosis secondary to diuresis Hypertension. COPD. CHF with valvular heart disease with severe mitral regurgitation, moderate tricuspid regurgitation and severe pulm hypertension on echocardiogram that was done on 11/02/2024 Hyperlipidemia. Hypothyroidism. Previous history of CVA. Restless leg syndrome Prior history of tobacco use. DVT prophylaxis; SCDs/subcu heparin CODE STATUS; full code
--- NOTE | 2024-11-07 13:00 | P.PN ---
Subjective Progress Note Date: 11/07/24 On 11/01/2024, the patient is being seen for a follow-up. The patient is in the hospital for an acute hypoxic/hypercapnic respiratory failure secondary to COPD/CHF exacerbation. The patient also has history of hypertension, hyperlipidemia and hypothyroidism along with his other medical problems. Upon a rrival to the hospital, the patient was placed on a BiPAP as the patient was found to have an acute on top of chronic hypercapnic respiratory failure and respiratory acidosis. proBNP level was in the 8000 range and the viral screen was negative and the chest x-ray was consistent with cardiomegaly and CHF. The patient was further stabilized and was taken off the BiPAP and the patient is currently on oxygen at 3 L/min nasal cannula. She is feeling better. She is less short of breath. She is covered with DuoNeb nebulized treatments [id number], she is also on a combination of Perforomist and Pulmicort updrafts twice a day, the patient is on IV Solu-Medrol 40 mg every 12 hours. She is on Aldactone 12.5 mg p.o. daily and Lasix 40 mg IV every 12 hours. The fluid balance over the past 24 hours has been -2.9 L -535 cc. The patient was also seen by cardiology. Most recent echocardiogram done on 11/13/2022 showed a normal LV function and the patient had severe mitral annular calcification with moderate to severe mitral regurgitation and moderate to severe pulmonary hypertension. On 11/02/2024, the patient is being seen for a follow-up. The patient is an acute COPD/CHF exacerbation. She is currently off the BiPAP and the patient is currently on oxygen at 3 L/min nasal cannula. No new complaints for now. She reports improvement. She remains on DuoNeb nebulized treatments [id number], Perforomist and Pulmicort nebulized treatments twice a day, Lasix 40 mg in the morning and 20 mg in the evening and Aldactone 12.5 mg p.o. daily. She is also on prednisone 40 mg p.o. daily as part of a burst taper. She is on IV iron and the patient's hemoglobin is at 7.1 with a white cell count of 7.2 and a platelet count of 175. Electrolytes are all stable. BUN is 17 with a creatinine of 0.9. Procalcitonin level is at 0.15. Repeat chest x-ray from today is consistent with CHF with increased pulm vascular markings and possibly some right basilar atelectasis/infiltrates. Findings are essentially stable on today's chest x-ray. Echocardiogram was also completed and the patient was found to have a preserved LV function with an ejection fraction of 60 to 65%. The patient also has severe mitral regurgitation, moderate tricuspid regurgitation, severe pulm hypertension. On 11/03/2024, the patient is being seen for a follow-up. Earlier in the morning, the patient was found to be having some increased shortness of breath. Based on that, the patient was given a blood gas that showed compensated hypoxic and hypercapnic respiratory failure. The patient's pH was at 7.48 with a pCO2 of 66 and pO2 of 66. A follow-up chest x-ray was done and it showed cardiomegal y and pulmonary vascular congestion consistent with CHF. Nevertheless, the patient's white cell count was noted to be elevated at 19.2 with a hemoglobin of 8 and platelet of 175. Serum bicarb is at 41. Sodium levels at 139 and a potassium level is at 3.4. The procalcitonin level is at 0.15. The patient remains on DuoNeb of chest, Perforomist and Pulmicort nebulized treatments twice a day and the patient is also on Lasix 40 mg in the morning and 20 mg in the evening. She remains on IV Zosyn and a prednisone burst taper starting with 40 mg p.o. daily. She remains on Aldactone 25 mg p.o. daily. She is also on metoprolol XL 50 mg p.o. daily. The overall fluid balance over the past 24 ho urs is -1.8 L. Echocardiogram shows a preserved LV function, severe MR, severe pulmonary pretension. On 11/04/2024, the patient is lethargic and weak. Denies having any shortness of breath at rest. She remains on 3 Suboxone by nasal cannula and the patient on and off is using the BiPAP during the day. Her previous blood gas showed a compensated respiratory acidosis, likely chronic. The patient has significant metabolic alkalosis and the patient was given Diamox. Serum bicarb is at 40. H emoglobin is at 7.9. She is still on oral Lasix and she is producing good urine output and the patient remains in negative fluid balance. She is taking Lasix 40 mg in the morning and 20 mg in the evening. She remains on IV Zosyn. She is also on Aldactone. White cell count is 1.7. Hemoglobin 7.9. Sodium is at 141, bicarb is at 40, BUN is at 18 with a creatinine of 1.0. On 11/05/2024, the patient is off the BiPAP. She was able to utilize the BiPAP overnight for a brief period of time. She is currently on 3 Suboxone by nasal cannula. She still being diuresed with IV Lasix and she was also given Diamox. The patient is doing well. She is calm and comfortable. No dyspnea at rest. No fever or chills. She remains on empiric antibiotic coverage with IV Zosyn. She remains on Lasix and Aldactone. She is receiving Lasix 40 mg in the morning and 20 mg in the evening orally and she is also on Aldactone 12.5 mg p.o. daily. Fluid balance is -630 cc over the past 24 hours. The white cell count 7.6 with a hemoglobin 7.9 and platelet count of 214. Serum bicarb is at 35 and a sodium level is 140 with a potassium level of 3.2. BUN is 18 with a creatinine of 1.1. On 11/06/2024, the patient remains on 3 days of oxygen by nasal cannula. She remains in a negative fluid balance as the patient is receiving Lasix and Aldactone. The fluid balance is -630 cc over the past 24 hours. Serum bicarb level is down to 37 and the patient received few doses of Diamox. Sodium is at 137. Potassium level needs to be replaced at 3.3. The white cell count is at 13 with a hemoglobin 8.1 and a platelet count of 228. No other significant issues or complaints. She is weak and debilitated. She has valvular heart disease with considerable degree of mitral regurgitation. Not utilizing BiPAP for now. No dyspnea at rest. On 11/07/2024, the patient is stable on 3 days of oxygen by nasal cannula. Denies having any significant shortness of breath. No altered mentation. No chest pain. Labs were noted from yesterday. No new labs are available from today. Medications remain unchanged. The patient remains on Lasix 40 mg in the morning and 20 in the evening. Remains on Aldactone. Remains on IV Solu- Medrol. Remains on IV Zosyn. Remains on metoprolol 50 mg p.o. daily. Objective - Vital Signs Vital signs: Vital Signs Temp 97.4 F L 11/07/24 07:19 Pulse 92 11/07/24 07:51 Resp 12 11/07/24 07:19 BP 97/61 11/07/24 07:19 Pulse Ox 100 11/07/24 07:19 FiO2 40 11/04/24 23:24 Intake & Output 11/06/24 11/07/24 11/07/24 18:59 06:59 18:59 Intake Total 200 400 Balance 200 400 Intake: Intake, IV Titration 200 Amount Piperacillin-Tazobactam 3 100 .375 gm In Sodium Chloride 0.9% 100 ml @ 25 mls/hr IVPB Q8H [facility] Rx#: [id number] Sodium Ferric Gluconat- 100 Sucrose 125 mg In Sodium Chloride 0.9% 100 ml @ 100 mls/hr IVPB DAILY [facility] Rx#:[id number] Oral 400 Other: Voiding Method External Catheter External Catheter # Voids 2 - Exam No acute distress, awake and alert, no respiratory distress, currently on 3 L nasal cannula HEENT examination is grossly unremarkable. Neck supple. Full range of motion. No adenopathy thyromegaly or neck vein distention. Cardiovascular examination reveals regular rhythm rate. S1-S2 normal. No S3 or S4. Heart sounds are distant. Lungs scattered rhonchi and crackles. No wheezes. Breath sounds are equal bilaterally. Abdomen soft without bowel sounds or masses. Extremities are intact. No cyanosis clubbing or edema. Skin is without rash or lesion. Neurologic examination is brief but nonfocal. - Labs CBC & Chem 7: 11/06/24 05:05 11/06/24 05:05 Labs: Abnormal Lab Results - Last 24 Hours (Table) 11/06/24 Range/Units 05:05 WBC 13.06 H (4.50-10.00) X 10*3/uL RBC 3.81 L (4.10-5.20) X 10*6/uL Hgb 8.1 L (12.0-15.0) g/dL Hct 31.6 L (37.2-46.3) % MCH 21.3 L (27.0-32.0) pg MCHC 25.6 L (32.0-37.0) g/dL RDW 23.9 H (11.5-14.5) % Immature Gran # 0.09 H (0.00-0.04) X 10*3/uL Neutrophils # 12.38 H (1.80-7.70) X 10*3/uL Lymphocytes # 0.20 L (0.90-5.00) X 10*3/uL Eosinophils # 0 L (0.04-0.35) X 10*3/uL NRBC/100 WBC Diff 0.02 H (0.00-0.01) X 10*3/uL Microbiology - Last 24 Hours (Table) 11/03/24 12:53 Blood Culture - Preliminary Blood Assessment and Plan Plan: Acute hypoxemic and hypercapnic respiratory failure, secondary to exacerbation of COPD/CHF. Recent blood gases shows metabolic alkalosis and chronic hypoxic and hypercapnic respiratory failure. The patient is being treated with a combination of bronchodilators, steroids and the patient is also on diuretics utilizing Lasix and Aldactone. The patient has developed significant metabolic alkalosis. The patient utilizing BiPAP on and off. Chest x-ray is consistent with CHF. Of concern is the leukocytosis and the patient is on IV Zosyn on an empiric basis. Procalcitonin level is not elevated. Noted the white cell count is also improving. The patient remains on oxygen at 3 L/min nasal cannula . Chronic hypoxemic respiratory failure. Metabolic alkalosis secondary to diuresis History of hypertension. History of COPD. CHF with valvular heart disease with severe mitral regurgitation, moderate tricuspid regurgitation and severe pulm hypertension on echocardiogram that was done on 11/02/2024 Metabolic alkalosis, likely secondary to diuretics. The patient is negative fluid balance History of hyperlipidemia. History of hypothyroidism. Previous history of CVA. History of restless leg syndrome. Prior history of tobacco use. Plan: Clinically stable Oxygenation stable and she remains on 3 L O2 nasal cannula Continue oral Lasix and Aldactone, remains in negative fluid balance Serum bicarb level is dropped down to 37 Off BiPAP the patient is on 3 L, nasal cannula Continue bronchodilators with DuoNeb Continue Perforomist and Pulmicort updrafts twice a day Prednisone burst taper, currently on 40 mg, to be started today Continue Lasix a 40 mg the morning and 20 mg the evening Continue Aldactone 12.5 mg p.o. daily Diamox was given and will monitor the serum bicarb level Maintain negative fluid balance
[2024-11-07 13:37] LABS: Anisocytosis Moderate; Basophils % (A) 0 %; Eosinophils % (A) 0 %; HCT 31.1 % (34.0-46.0); Hypochromasia Marked; Lymphocytes # (A) 0.4 k/uL (1.0-4.8); Lymphocytes % (A) 5 %; MCH 22.9 pg (25.0-35.0); MCHC 28.1 g/dL (31.0-37.0); Mean Platelet Volume 8.3; Microcytosis Slight; Monocytes # (A) 0.3 k/uL (0-1.0); Monocytes % (A) 4 %; Neutrophils # (A) 6.3 k/uL (1.3-7.7); Neutrophils % (A) 90 %; Platelet Count 242 k/uL (150-450); RBC 3.81 m/uL (3.80-5.40); RDW 22.8 % (11.5-15.5)
[2024-11-07 13:54] LABS: HGB 8.7 gm/dL (11.4-16.0); MCV 81.5 fL (80.0-100.0)
--- NOTE | 2024-11-07 16:54 | P.PN ---
Subjective Progress Note Date: 11/07/24 The patient is in the hospital for an acute hypoxic/hypercapnic respiratory failure secondary to COPD/CHF exacerbation. The patient also has history of hypertension, hyperlipidemia and hypothyroidism along with his other medical problems. Upon arrival to the hospital, the patient was placed on a BiPAP as the patient was found to have an acute on top of chronic hypercapnic respiratory failure and respiratory acidosis. proBNP level was in the 8000 range and the viral screen was negative and the chest x-ray was consistent with cardiomegaly and CHF. The patient was further stabilized and was taken off the BiPAP and the patient is currently on oxygen at 3 L/min nasal cannula. She is feeling better. She is less short of breath. She is covered with DuoNeb nebulized treatments [id number], she is also on a combination of Perforomist and Pulmicort updrafts twice a day, the patient is on IV Solu-Medrol 40 mg every 12 hours. She is on Aldactone 12.5 mg p.o. daily and Lasix 40 mg IV every 12 hours. The fluid balance over the past 24 hours has been -2.9 L -535 cc. The patient was also seen by cardiology. Most recent echocardiogram done on 11/13/2022 showed a normal LV function and the patient had severe mitral annular calcification with moderate to severe mitral regurgitation and moderate to severe pulmonary hypertension. 11/07/2024 -- the patient is stable on 3 days of oxygen by nasal cannula. Denies having any significant shortness of breath. No altered mentation. No chest pain. Labs were noted from yesterday. No new labs are available from today. Medications remain unchanged. The patient remains on Lasix 40 mg in the morning and 20 in the evening. Remains on Aldactone. Remains on IV Solu-Medrol. Remains on IV Zosyn. Remains on metoprolol 50 mg p.o. daily. Oxygenation stable and she remains on 3 L O2 nasal cannula Off BiPAP the patient is on 3 L, nasal cannula Continue bronchodilators with DuoNeb Continue Perforomist and Pulmicort updrafts twice a day Prednisone burst taper, currently on 40 mg, to be started today per pulm recom mendation Continue Lasix a 40 mg the morning and 20 mg the evening; Aldactone 12.5 mg p.o. daily Objective - Vital Signs Vital signs: Vital Signs Temp 97.4 F L 12/22/24 07:19 Pulse 93 11/07/24 11:50 Resp 12 11/07/24 07:19 BP 97/61 11/07/24 07:19 Pulse Ox 100 11/07/24 07:19 FiO2 40 11/04/24 23:24 Intake & Output 11/06/24 11/07/24 11/07/24 18:59 06:59 18:59 Intake Total 200 400 Balance 200 400 Intake: Intake, IV Titration 200 Amount Piperacillin-Tazobactam 3 100 .375 gm In Sodium Chloride 0.9% 100 ml @ 25 mls/hr IVPB Q8H [facility] Rx#: [id number] Sodium Ferric Gluconat- 100 Sucrose 125 mg In Sodium Chloride 0.9% 100 ml @ 100 mls/hr IVPB DAILY [facility] Rx#:[id number] Oral 400 Other: Voiding Method External Catheter External Catheter Diaper Incontinent External Catheter # Voids 2 - Exam No acute distress, awake and alert, no respiratory distress, currently on 3 L nasal cannula HEENT examination is grossly unremarkable. Neck supple. Full range of motion. No adenopathy thyromegaly or neck vein distention. Cardiovascular examination reveals regular rhythm rate. S1-S2 normal. No S3 or S4. Heart sounds are distant. Lungs scattered rhonchi and crackles. No wheezes. Breath sounds are equal bilaterally. Abdomen soft without bowel sounds or masses. Extremities are intact. No cyanosis clubbing or edema. Neurologic examination is brief but nonfocal. - Labs CBC & Chem 7: 11/07/24 13:20 11/06/24 05:05 Labs: Microbiology - Last 24 Hours (Table) 11/03/24 12:53 Blood Culture - Preliminary Blood Assessment and Plan Assessment: Acute on chronic hypoxemic and hypercapnic respiratory failure, secondary to exacerbation of COPD/CHF. Recent blood gases shows metabolic alkalosis and chronic hypoxic and hypercapnic respiratory failure. The patient is being treated with a combination of bronchodilators, steroids and the patient is also on diuretics utilizing Lasix and Aldactone. The patient has developed si gnificant metabolic alkalosis. The patient utilizing BiPAP on and off. Chest x-ray is consistent with CHF. Of concern is the leukocytosis and the patient is on IV Zosyn on an empiric basis. Procalcitonin level is not elevated. Noted the white cell count is also improving. The patient remains on oxygen at 3 L/min nasal cannula. Metabolic alkalosis secondary to diuresis Hypertension. COPD. CHF with valvular heart disease with severe mitral regurgitation, moderate tricuspid regurgitation and severe pulm hypertension on echocardiogram that was done on 11/02/2024 Hyperlipidemia. Hypothyroidism. Previous history of CVA. Restless leg syndrome Prior history of tobacco use. DVT prophylaxis; SCDs/subcu heparin CODE STATUS; full code
[2024-11-08] MEDS: POTASSIUM CHLORIDE ER 20 MEQ TAB.ER PO SCH (00:53)
--- NOTE | 2024-11-08 08:15 | P.PN ---
Subjective Progress Note Date: 11/07/24 Principal diagnosis: Reason for follow-up is leukocytosis and pneumonia Patient is a 79-year-old female with a past medical history significant for COPD CVA TIA hypertension hyperlipidemia osteoarthritis presenting to the hospital for evaluation of increasing shortness of breath patient did have a normal white count admission subsequent did have a jump in the white count with the patient was started on Zosyn ID was consulted for further management. On today's evaluation that is 11/07/2024, Patient is afebrile patient is currently on 3 L nasal cannula oxygen and denies having any shortness of breath, the patient denies any chest pain or any worsening cough, the patient denies any nausea vomiting did not have any abdominal pain and no diarrhea. Patient white count normalized to 7000, creatinine is 1.13 blood culture negative sputum not collected Objective - Vital Signs Vital signs: Vital Signs Temp 98.5 F 11/07/24 20:00 Pulse 88 11/07/24 20:01 Resp 12 11/07/24 20:00 BP 86/53 11/07/24 20:00 Pulse Ox 96 11/07/24 20:00 FiO2 40 11/04/24 23:24 Intake & Output 11/07/24 11/07/24 11/08/24 06:59 18:59 06:59 Intake Total 400 340 Balance 400 340 Intake: Intake, IV Titration 100 Amount Piperacillin-Tazobactam 3 100 .375 gm In Sodium Chloride 0.9% 100 ml @ 25 mls/hr IVPB Q8H [facility] Rx#: [id number] Oral 400 240 Other: Voiding Method Diaper Diaper Diaper Incontinent Incontinent Incontinent External Catheter # Voids 3 - Exam GENERAL DESCRIPTION: An elderly female lying in bed in no distress RESPIRATORY SYSTEM: Unlabored breathing , decreased breath sounds at bases HEART: S1 S2 regular rate and rhythm , ABDOMEN: Soft , no tenderness EXTREMITIES: No edema feet - Labs CBC & Chem 7: 11/07/24 13:20 11/06/24 05:05 Labs: Abnormal Lab Results - Last 24 Hours (Table) 11/07/24 Range/Units 13:20 Hgb 8.7 L D (11.4-16.0) gm/dL Hct 31.1 L (34.0-46.0) % MCH 22.9 L (25.0-35.0) pg MCHC 28.1 L (31.0-37.0) g/dL RDW 22.8 H (11.5-15.5) % Lymphocytes # 0.4 L (1.0-4.8) k/uL Microbiology - Last 24 Hours (Table) 11/03/24 12:53 Blood Culture - Preliminary Blood Assessment and Plan (1) Leukocytosis Current Visit: Yes Status: Acute Code(s): D72.829 - ELEVATED WHITE BLOOD CELL COUNT, UNSPECIFIED SNOMED Code(s): 147504500 (2) Allergy to multiple antibiotics Current Visit: Yes Status: Acute Code(s): Z88.1 - ALLERGY STATUS TO OTHER ANTIBIOTIC AGENTS SNOMED Code(s): 824141944 Plan: 1patient initially presented to the hospital with increasing shortness of breath and cough which is likely multifactorial possibly related to COPD exacerbation tracheobronchitis/CHF patient was noticed to have increasing white count which could be related to the steroids however the white count did came down after the patient started on Zosyn and possible component of pneumonia not entirely excluded. 2patient with multiple antibiotic ALLERGIES that would limit the number of antibiotic safe to use. 3patient did have CT of the chest abdominal pelvis suggestive of right lower infiltrate concerning for possible pneumonia. 4patient white count has normalized, sputum has not been collected we will continue Zosyn while inpatient transition to oral antibiotics on discharge Dictation was produced using [employer] dictation software. please excuse any grammatical, word or spelling errors. Time with Patient: Less than 30
[2024-11-08] MEDS: predniSONE 20 MG TAB PO SCH (09:18)
[2024-11-08 11:02] LABS: Basophils # (A) 0.01 X 10*3/uL (0.00-0.10); Basophils % (A) 0.1 %; Eosinophils # (A) 0.01 X 10*3/uL (0.04-0.35); Eosinophils % (A) 0.1 %; HCT 33.9 % (37.2-46.3); HGB 8.6 g/dL (12.0-15.0); Lymphocytes # (A) 0.82 X 10*3/uL (0.90-5.00); Lymphocytes % (A) 5.3 %; MCH 21.4 pg (27.0-32.0); MCHC 25.4 g/dL (32.0-37.0); MCV 84.3 FL (80.0-97.0); Mean Platelet Volume 11.9 FL (9.5-12.2); Monocytes # (A) 1.04 X 10*3/uL (0.20-1.00); Monocytes % (A) 6.7 %; NRBC Per 100 WBC 0.05 X 10*3/uL (0.00-0.01); Neutrophils # (A) 13.41 X 10*3/uL (1.80-7.70); Neutrophils % (A) 86.8 %; Platelet Count 208 X 10*3/uL (140-440); RBC 4.02 X 10*6/uL (4.10-5.20); RDW 25.5 % (11.5-14.5); WBC 15.45 X 10*3/uL (4.50-10.00)
[2024-11-08 11:29] LABS: Calcium 8.5 mg/dL (8.7-10.3); Chloride 100 mmol/L (96-109); Glucose 91 mg/dL (70-110); Potassium 4.1 mmol/L (3.5-5.5); Sodium 142 mmol/L (135-145)
--- NOTE | 2024-11-08 11:39 | P.PN ---
Subjective Progress Note Date: 11/08/24 Patient is a 68-year-old male with past medical history significant for coronary artery disease status post PCI/stenting and CABG. Patient's original CABG was over 20 years ago, more recently had a two-vessel redo off-pump CABG May,. Also, he has severe ischemic cardiomyopathy with ejection fraction of 20 to 25%, recurrent right-sided pleural effusion requiring frequent thoracentesis, hypertension, hyperlipidemia, A-fib, left carotid artery stenosis, chronic oxygen dependence on 4 L/min nasal cannula while at home, COPD, former tobacco dependence. He is known to have recurrent right-sided pleural effusion, requiring multiple previous thoracentesis. Most recently drained September 25, 2024. Was total of 1.7 L of fluid was removed. Previously sent for fluid analysis, this has been a transudative effusion in the past. Fluid cytology previously negative for malignant cells. He is not familiar with his home medications. States he is not on any Lasix or Bumex at this time. Aldactone is listed in his home medications. Patient's most recent echocardiogram done September, showing a severely reduced left ventricular ejection fraction of 20 to 25%, as well as, moderate to severe mitral regurgitation. He is on a combination of Entresto, Farxiga, metoprolol, among other things. He is chronically anticoagulated on Eliquis. Patient presented to emergency department yesterday afternoon complaining mostly of extreme shortness of breath. Over the last 2 to 3 days he has had a productive cough with copious amounts of yellow to green sputum. Does report history of COPD. No longer smokes. Denies any fevers, chills, chest pain, hemoptysis. Unrelated, he is complaining of some lumbar level back pain, which he states is chronic. No weakness in the lower extremities or saddle anesthesia or loss of bowel or bladder control. Chest x-ray done on admission showing cardiomegaly, pulmonary vascular congestion, and a large right-sided pleural effusion. CBC: WBC count 7.2, hemoglobin 12.1, hematocrit 38.9, platelets 148. CMP is unremarkable. Electrolytes WDL. Glucose 106. LFTs unremarkable. Troponins 0.013, 0.017, and 0.019. NT proBNP elevated at 3070. EKG: Normal sinus rhythm, rate 80 bpm, chronic T wave inversions in 1, aVL, V5 V6; 2, aVF. Negative for influenza, RSV, COVID. Patient is currently being evaluated on the cardiac observation unit. He is tachypneic. Speaking in short phrases. He is on 3 L/min nasal cannula. He did receive 1 dose of Lasix earlier. On 11/06/2024, the patient continues to have shortness of breath. Limited improvement postthoracentesis. A total of 1.5 L of pleural fluid was aspirated and the pleural fluid was a exudate based on protein criteria. He is currently on room air oxygen. He remains on Lasix 40 mg every 12 hours. Fluid balance is negative. Labs from today shows a BUN of 34 with a creatinine of 2.3. Sodium levels at 135. He remains on anticoagulation and anticoagulation was resumed 5 mg p.o. twice a day. He remains on bronchodilators. Remains on steroids. He remains on Entresto and Aldactone. Remains on Farxiga. On 11/07/2024, the patient is experiencing an acute kidney injury and nephrology has been consulted on the case. Is resting comfortably in bed and is currently on 2 L with a pulse ox of 97%. He is still producing urine output and the patient is nonoliguric. The patient was seen by nephrology. Diuretics have been discontinued. He is Aldactone has been discontinued. Farxiga has been discontinued. He is receiving normal saline at rate of 50 cc an hour. Blood work from today shows a BUN of 60 with a creatinine of 3.8 and sodium levels at 132. No other issues otherwise for now. No chest pain. Continues to have some mild shortness of breath. The patient is seen today November 08, 2024 in follow-up on the regular medical floor. She is currently resting comfortably in bed. Maintaining good O2 saturations in the 90s on 2 L/min per nasal cannula. She is afebrile. Hemodynamically stable. Awake and alert in no acute distress. She is feeling back to her baseline. No worsening shortness of breath, cough or congestion. Sodium 134. Potassium 5.0. Bicarb 23. BUN 61. Creatinine 2.4. Glucose 118. Sputum culture revealed no growth. She is on DuoNeb and elations, Symbicort, Solu-Medrol. Anticoagulated with Eliquis. Diuretics and Entresto remain on ho ld due to renal failure per nephrology. Objective - Vital Signs Vital signs: Vital Signs Temp 97.7 F 11/08/24 07:09 Pulse 88 11/08/24 07:46 Resp 18 11/08/24 07:09 BP 85/50 11/08/24 07:09 Pulse Ox 95 11/08/24 07:09 FiO2 40 11/04/24 23:24 Intake & Output 11/07/24 11/08/24 11/08/24 18:59 06:59 18:59 Intake Total 340 540 Balance 340 540 Intake: Intake, IV Titration 100 Amount Piperacillin-Tazobactam 3 100 .375 gm In Sodium Chloride 0.9% 100 ml @ 25 mls/hr IVPB Q8H [facility] Rx#: [id number] Oral 240 540 Other: Voiding Method Diaper Diaper Incontinent Incontinent External Catheter # Voids 3 - Exam GENERAL EXAM: Alert, pleasant 79-year-old female, on 2 L nasal cannula, comfort able in no apparent distress. HEAD: Normocephalic. EYES: Normal reaction of pupils, equal size. NOSE: Clear with pink turbinates. THROAT: No erythema or exudates. NECK: No masses, no JVD. CHEST: No chest wall deformity. LUNGS: Equal air entry with no crackles, wheeze, rhonchi or dullness. CVS: S1 and S2 normal with no audible murmur, regular rhythm. ABDOMEN: No hepatosplenomegaly, normal bowel sounds, no guarding or rigidity. SPINE: No scoliosis or deformity SKIN: No rashes CENTRAL NERVOUS SYSTEM: No focal deficits, tone is normal in all 4 extremities. EXTREMITIES: There is no peripheral edema. No clubbing, no cyanosis. Peripheral pulses are intact. - Labs CBC & Chem 7: 11/08/24 07:18 11/08/24 07:18 Labs: Abnormal Lab Results - Last 24 Hours (Table) 11/07/24 11/08/24 11/08/24 Range/Units 13:20 07:18 07:18 WBC 15.45 H (4.50-10.00) X 10*3/uL RBC 4.02 L (4.10-5.20) X 10*6/uL Hgb 8.7 L D 8.6 L (11.4-16.0) gm/dL Hct 31.1 L 33.9 L (34.0-46.0) % MCH 22.9 L 21.4 L (25.0-35.0) pg MCHC 28.1 L 25.4 L (31.0-37.0) g/dL RDW 22.8 H 25.5 H (11.5-15.5) % Immature Gran # 0.16 H (0.00-0.04) X 10*3/uL Neutrophils # 13.41 H (1.80-7.70) X 10*3/uL Lymphocytes # 0.4 L 0.82 L (1.0-4.8) k/uL Monocytes # 1.04 H (0.20-1.00) X 10*3/uL Eosinophils # 0.01 L (0.04-0.35) X 10*3/uL NRBC/100 WBC Diff 0.05 H (0.00-0.01) X 10*3/uL Carbon Dioxide 34.0 H (21.6-31.8) mmol/L Est GFR (CKD-EPI) 58 L (>=60) BUN/Creatinine Ratio 21.00 H (12.00-20.00) Ratio Calcium 8.5 L (8.7-10.3) mg/dL Assessment and Plan Assessment: Acute dyspnea, secondary to a combination of acute systolic congestive heart failure, recurrent right pleural effusion, and acute COPD exacerbation, Chest x- ray done on admission showing cardiomegaly, pulmonary vascular congestion, and a large right-sided pleural effusion. NT proBNP 3070 Recurrent large right-sided pleural effusion. Status post thoracentesis November 05, 2024 a total of 1.5 L was removed. Fluid cytology previously negative for malignant cells. This admission cytology pending Coronary artery disease, with previous PCI/stenting and CABG over 20 years ago, subsequent two-vessel redo off-pump CABG May, Ischemic cardiomyopathy, most recent available echocardiogram from September, estimating a severely reduced left ventricular ejection fraction of 20 to 25%, as well as, monitor severe mitral regurgitation Acute kidney injury, likely secondary to diuretics and cardiorenal factors. History of paroxysmal atrial fibrillation, currently sinus mechanism, anticoagulated on Eliquis History of hypertension History of hyperlipidemia History of left internal carotid artery stenosis, 50-79% Chronic anemia Former tobacco dependence Severe COPD , FEV1 43% of predicted Chronic hypoxemic respiratory failure, normally maintained on 4 L/min nasal cannula Obstructive sleep apnea Chronic back pain with history of back surgery Plan: The patient was seen and evaluated Labs and medications reviewed Continued on DuoNeb inhalations, Symbicort Transition to oral steroids Stable and on 2 L nasal cannula Anticoagulated with with Eliquis Diuretics and Entresto remain on hold Home once cleared by nephrology This patient was seen independently by the pulmonary nurse practitioner addressing pulmonary issues I have personally seen and examined the patient, performed the documentation and the assessment and plan as written. Number of minutes spent on the visit: 25 Dictation was produced using [employer] dictation software. Please excuse any grammatical, word or spelling errors.
--- NOTE | 2024-11-08 12:19 | P.PN ---
Subjective Progress Note Date: 11/08/24 The patient is seen today November 08, 2024 in follow-up on the regular medical floor. She is currently resting comfortably in bed. Maintaining good O2 saturations in the 90s on 2 L/min per nasal cannula. She is afebrile. Hemodynamically stable. Awake and alert in no acute distress. She is feeling b ack to her baseline. No worsening shortness of breath, cough or congestion. Sodium 134. Potassium 5.0. Bicarb 23. BUN 61. Creatinine 2.4. Glucose 118. Sputum culture revealed no growth. She is on DuoNeb and elations, Symbicort, Solu-Medrol. Anticoagulated with Eliquis. Diuretics and Entresto remain on hold due to renal failure per nephrology. Objective - Vital Signs Vital signs: Vital Signs Temp 97.7 F 11/08/24 07:09 Pulse 80 11/08/24 11:43 Resp 18 11/08/24 07:09 BP 85/50 11/08/24 07:09 Pulse Ox 95 11/08/24 07:09 FiO2 40 11/04/24 23:24 Intake & Output 11/07/24 11/08/24 11/08/24 18:59 06:59 18:59 Intake Total 340 540 Balance 340 540 Intake: Intake, IV Titration 100 Amount Piperacillin-Tazobactam 3 100 .375 gm In Sodium Chloride 0.9% 100 ml @ 25 mls/hr IVPB Q8H [facility] Rx#: [id number] Oral 240 540 Other: Voiding Method Diaper Diaper Diaper Incontinent Incontinent Incontinent External Catheter # Voids 3 - Exam GENERAL EXAM: Alert, pleasant 79-year-old female, on 3 L nasal cannula, comfortable in no apparent distress. HEAD: Normocephalic. EYES: Normal reaction of pupils, equal size. NOSE: Clear with pink turbinates. THROAT: No erythema or exudates. NECK: No masses, no JVD. CHEST: No chest wall deformity. LUNGS: Equal air entry with no crackles, wheeze, rhonchi or dullness. CVS: S1 and S2 normal with no audible murmur, regular rhythm. ABDOMEN: No hepatosplenomegaly, normal bowel sounds, no guarding or rigidity. SPINE: No scoliosis or deformity SKIN: No rashes CENTRAL NERVOUS SYSTEM: No focal deficits, tone is normal in all 4 extremities. EXTREMITIES: There is no peripheral edema. No clubbing, no cyanosis. Peripheral pulses are intact. - Labs CBC & Chem 7: 11/08/24 07:18 11/08/24 07:18 Labs: Abnormal Lab Results - Last 24 Hours (Table) 11/07/24 11/08/24 11/08/24 Range/Units 13:20 07:18 07:18 WBC 15.45 H (4.50-10.00) X 10*3/uL RBC 4.02 L (4.10-5.20) X 10*6/uL Hgb 8.7 L D 8.6 L (11.4-16.0) gm/dL Hct 31.1 L 33.9 L (34.0-46.0) % MCH 22.9 L 21.4 L (25.0-35.0) pg MCHC 28.1 L 25.4 L (31.0-37.0) g/dL RDW 22.8 H 25.5 H (11.5-15.5) % Immature Gran # 0.16 H (0.00-0.04) X 10*3/uL Neutrophils # 13.41 H (1.80-7.70) X 10*3/uL Lymphocytes # 0.4 L 0.82 L (1.0-4.8) k/uL Monocytes # 1.04 H (0.20-1.00) X 10*3/uL Eosinophils # 0.01 L (0.04-0.35) X 10*3/uL NRBC/100 WBC Diff 0.05 H (0.00-0.01) X 10*3/uL Carbon Dioxide 34.0 H (21.6-31.8) mmol/L Est GFR (CKD-EPI) 58 L (>=60) BUN/Creatinine Ratio 21.00 H (12.00-20.00) Ratio Calcium 8.5 L (8.7-10.3) mg/dL Assessment and Plan Assessment: Acute hypoxemic and hypercapnic respiratory failure, secondary to exacerbation of chronic obstructive pulmonary disease and diastolic chronic congestive heart failure. The patient remains on oxygen at 3 L/min nasal cannula. Chronic hypoxemic respiratory failure Metabolic alkalosis secondary to diuresis History of hypertension History of COPD CHF with valvular heart disease with severe mitral regurgitation, moderate tricuspid regurgitation and severe pulm hypertension on echocardiogram that was done on 11/02/2024 Metabolic alkalosis, likely secondary to diuretics. The patient is negative fluid balance History of hyperlipidemia History of hypothyroidism Previous history of CVA History of restless leg syndrome Prior history of tobacco use Plan: The patient was seen and evaluated Labs and medications reviewed Remains stable and on 3 L nasal cannula She does have home oxygen Continue bronchodilators, steroids Plan is for home with home care at discharge This patient was seen independently by the pulmonary nurse practitioner addressing pulmonary issues I have personally seen and examined the patient, performed the documentation and the assessment and plan as written. Number of minutes spent on the visit: 25 Dictation was produced using [employer] dictation software. Please excuse any grammatical, word or spelling errors.
--- NOTE | 2024-11-08 14:27 | XR ---
EXAMINATION TYPE: XR chest 1V portable DATE OF EXAM: 11/08/2024 COMPARISON: 11/05/2024 CLINICAL INDICATION: Female, 79 years old with history of pneumonia; , TECHNIQUE: XR chest 1V portable views of the chest. FINDINGS: Postsurgical change right shoulder and clavicle. Arthropathy of the left shoulder with diffuse osteop enia. Degenerative changes spine. Large area of consolidation right lower lobe could be on the basis of pneumonia. Follow the resolution to exclude other etiologies. Neoplasm. Heart is enlarged and ther e is an elevated right hemidiaphragm. Underlying COPD coarsened interstitium may reflect chronic lung disease, interstitial pneumonitis or mild venous congestion. IMPRESSION: 1. Increasing right lower lobe consolidation compatible with pneumonia. 2. Stable interstitial lung markings may reflect chronic lung disease. Mild superimposed interstitial pneumonitis or venous congestion in the differential diagnosis [facility], , 11/08/2024 2:25 PM
--- NOTE | 2024-11-08 21:37 | PN ---
PROGRESS NOTE DATE OF SERVICE: 11/08/2024 SUBJECTIVE: This is a 79-year-old woman, who was admitted with COPD acute exacerbation as well as aspiration pneumonia gram-negative, is improving significantly. No chest pain. No palpitations. The patient is refusing ECF rehab at this time. OBJECTIVE: VITAL SIGNS: Pulse 97, blood pressure 93/59, respirations 18. CHEST: Scattered rhonchi and crackles. ABDOMEN: Soft. NERVOUS SYSTEM: Nonfocal. LABORATORY DATA: WBC 15.45. Rest of the labs are noted. ASSESSMENT: 1. Chronic obstructive pulmonary disease acute exacerbation with acute bilateral pneumonia, possibly gram-negative with sepsis, hypotension. Severe sepsis present on admission. 2. Hypokalemia. 3. Acute hypoxic respiratory failure, on BiPAP. 4. History of congestive heart failure. 5. Hypertension. 6. Multiple complex medical issues. 7. Dysphagia. 8. FULL CODE. RECOMMENDATIONS: Recommend to continue current management and continue symptomatic treatment. Otherwise, at this time, I recommend bronchodilators and antibiotics as mentioned earlier. Rehab has been recommended to her, but the patient was not willing. Closely follow with Pulmonary. Further recommendations to follow. I had a detailed discussion with the at the bedside. MMODL / IJN: [id number] /
[2024-11-09 06:54] LABS: Anisocytosis Moderate; Basophils % (A) 0 %; Eosinophils % (A) 0 %; HCT 30.9 % (34.0-46.0); HGB 8.7 gm/dL (11.4-16.0); Hypochromasia Marked; Lymphocytes # (A) 0.6 k/uL (1.0-4.8); Lymphocytes % (A) 4 %; MCH 22.8 pg (25.0-35.0); MCV 81.2 fL (80.0-100.0); Mean Platelet Volume 8.3; Microcytosis Slight; Monocytes # (A) 0.5 k/uL (0-1.0); Monocytes % (A) 3 %; Neutrophils # (A) 12.9 k/uL (1.3-7.7); Neutrophils % (A) 92 %; Platelet Count 164 k/uL (150-450); Poikilocytosis Slight; RBC 3.81 m/uL (3.80-5.40); RDW 23.5 % (11.5-15.5); WBC 14.1 k/uL (3.8-10.6)
[2024-11-09 08:22] VITALS: BP 94/60; RESP 20; TEMP 97.7
[2024-11-09 08:50] VITALS: PULSE 92
--- NOTE | 2024-11-09 09:32 | P.PN ---
Subjective Progress Note Date: 11/08/24 Principal diagnosis: Reason for follow-up is leukocytosis and pneumonia Patient is a 79-year-old female with a past medical history significant for COPD CVA TIA hypertension hyperlipidemia osteoarthritis presenting to the hospital for evaluation of increasing shortness of breath patient did have a normal white count admission subsequent did have a jump in the white count with the patient was started on Zosyn ID was consulted for further management. On today's evaluation that is 11/08/2024, patient has been afebrile, patient is breathing comfortably and is currently on 2 L nasal oxygen patient denies having any worsening cough no chest pain, patient denies nausea vomiting or diarrhea and no abdominal pain. Patient white count slightly up to 15.45 today, creatinine is 1.0 blood culture has been negative Objective - Vital Signs Vital signs: Vital Signs Temp 97.7 F 11/08/24 07:09 Pulse 80 11/08/24 11:43 Resp 18 11/08/24 07:09 BP 85/50 11/08/24 07:09 Pulse Ox 95 11/08/24 07:09 FiO2 40 11/04/24 23:24 Intake & Output 11/07/24 11/08/24 11/08/24 18:59 06:59 18:59 Intake Total 340 540 Balance 340 540 Intake: Intake, IV Titration 100 Amount Piperacillin-Tazobactam 3 100 .375 gm In Sodium Chloride 0.9% 100 ml @ 25 mls/hr IVPB Q8H [facility] Rx#: [id number] Oral 240 540 Other: Voiding Method Diaper Diaper Diaper Incontinent Incontinent Incontinent External Catheter # Voids 3 - Exam GENERAL DESCRIPTION: An elderly female lying in bed in no distress RESPIRATORY SYSTEM: Unlabored breathing , decreased breath sounds at bases HEART: S1 S2 regular rate and rhythm , ABDOMEN: Soft , no tenderness EXTREMITIES: No edema feet - Labs CBC & Chem 7: 11/09/24 06:21 11/08/24 07:18 Labs: Abnormal Lab Results - Last 24 Hours (Table) 11/07/24 11/08/24 11/08/24 Range/Units 13:20 07:18 07:18 WBC 15.45 H (4.50-10.00) X 10*3/uL RBC 4.02 L (4.10-5.20) X 10*6/uL Hgb 8.7 L D 8.6 L (11.4-16.0) gm/dL Hct 31.1 L 33.9 L (34.0-46.0) % MCH 22.9 L 21.4 L (25.0-35.0) pg MCHC 28.1 L 25.4 L (31.0-37.0) g/dL RDW 22.8 H 25.5 H (11.5-15.5) % Immature Gran # 0.16 H (0.00-0.04) X 10*3/uL Neutrophils # 13.41 H (1.80-7.70) X 10*3/uL Lymphocytes # 0.4 L 0.82 L (1.0-4.8) k/uL Monocytes # 1.04 H (0.20-1.00) X 10*3/uL Eosinophils # 0.01 L (0.04-0.35) X 10*3/uL NRBC/100 WBC Diff 0.05 H (0.00-0.01) X 10*3/uL Carbon Dioxide 34.0 H (21.6-31.8) mmol/L Est GFR (CKD-EPI) 58 L (>=60) BUN/Creatinine Ratio 21.00 H (12.00-20.00) Ratio Calcium 8.5 L (8.7-10.3) mg/dL Assessment and Plan (1) Leukocytosis Current Visit: Yes Status: Acute Code(s): D72.829 - ELEVATED WHITE BLOOD CELL COUNT, UNSPECIFIED SNOMED Code(s): 796128991 (2) Allergy to multiple antibiotics Current Visit: Yes Status: Acute Code(s): Z88.1 - ALLERGY STATUS TO OTHER ANTIBIOTIC AGENTS SNOMED Code(s): 478516432 Plan: 1patient initially presented to the hospital with increasing shortness of breath and cough which is likely multifactorial possibly related to COPD exacerbation tracheobronchitis/CHF patient was noticed to have increasing white count which could be related to the steroids however the white count did came down after the patient started on Zosyn and possible component of pneumonia not entirely excluded. 2patient with multiple antibiotic ALLERGIES that would limit the number of antibiotic safe to use. 3patient did have CT of the chest abdominal pelvis suggestive of right lower infiltrate concerning for possible pneumonia. 4patient white count normalized yesterday slightly up today questionably medication related, patient currently being treated with Zosyn while inpatient transition to oral Avelox on discharge Dictation was produced using [employer] dictation software. please excuse any grammatical, word or spelling errors. Time with Patient: Less than 30
--- NOTE | 2024-11-09 10:28 | P.DS ---
Providers Date of admission: 10/30/24 03:27 Expected date of discharge: 11/09/24 Attending physician: Nora Negron Consults: 10/30/24 03:26 Consult Physician Routine Consulting Provider: [facility] Consult Reason/Comments: chf Do you want consulting provider notified?: Yes Consult Physician Stat Consulting Provider: Vinh Soto Consult Reason/Comments: bipap, copd/chf, hypoxic resp failure Do you want consulting provider notified?: Already Contacted 11/04/24 15:03 Consult Physician Routine Consulting Provider: Linden Hermosillo Consult Reason/Comments: possible pna Do you want consulting provider notified?: Yes Primary care physician: Stated None Hospital Course: Final diagnosis Acute on chronic hypoxemic and hypercapnic respiratory failure, secondary to exacerbation of COPD/CHF. Metabolic alkalosis secondary to diuresis Hypertension. COPD. Acute exacerbation Acute on chronic CHF with valvular heart disease with severe mitral regurgitation, moderate tricuspid regurgitation and severe pulm hypertension on echocardiogram that was done on 11/02/2024. Diastolic dysfunction with preserved EF Hyperlipidemia. Hypothyroidism. Previous history of CVA. Restless leg syndrome Prior history of tobacco use. DVT prophylaxis CODE STATUS; full code Discharge disposition Patient is being discharged in a stable condition with guarded prognosis to home with home care. Patient will follow-up with Dr. Ulrich in the outpatient setting upon discharge. Patient is to continue with current medications as prescribed and outpatient follow-up with pulmonary as scheduled. Total time taken is greater than 35 minutes. Hospital course This is a 79-year-old female who was recently admitted with worsening shortness of breath with acute on chronic hypoxic respiratory failure secondary to CHF as well as COPD exacerbation. Patient with significant past medical history of congestive heart failure with preserved EF along with severe COPD and chronic hy poxic respiratory failure wears oxygen outpatient. Patient was also being treated and seen by infectious disease and he has been continued on antibiotics. Patient will continue oral antibiotics along with a prednisone taper on discharge. Patient was evaluated by physical therapy recommending rehab and also attending recommending rehab for recurrent falls with progressive weakness and continued ongoing debility although patient is adamant she is returning home. Home care is being arranged and she will be going home with her spouse. Lengthy discussion was had regarding high readmission rate and overall guarded prognosis and he reports possibly looking into long-term if she continues to worsen. Patient has been cleared by consultations for discharge home. Please refer to other consultation notes for further HPI. Currently no reports of chest pain, shortness of breath, or palpitations. Patient is afebrile. No reports of nausea or vomiting and patient is tolerating diet. Patient will be discharged home with home care today. Again high risk for readmissions given significant comorbidities Physical exam: Gen: This is a 79-year-old female who is awake, alert and oriented x 3, well- developed, thin, cachectic, elderly appearing, ill-appearing HEENT: Head is atraumatic, normocephalic. Pupils equal, round. Sclerae is anicteric. NECK: Supple. No JVD. No lymphadenopathy. No thyromegaly. LUNGS: Diminished breath sounds bilaterally with some scattered rhonchi rhonchi. No intercostal retractions. HEART: Regular rate and rhythm. No murmur. ABDOMEN: Soft. Bowel sounds are present. No masses. No tenderness. EXTREMITIES: No pedal edema. No calf tenderness. Thin with significant muscle wasting noted NEUROLOGICAL: Patient is awake, alert and oriented x3. Cranial nerves 2 through 12 are grossly intact. Diffusely weak Please refer to medication reconciliation sheet for a list of medications. The impression and plan of care has been dictated by Jaymie Oseguera, Nurse Practitioner as directed. Dr. Jamil MD I have performed a history and examination and MDM of this patient, discussed the same with the dictator, and agree with the dictator's assessment and plan as written ,documented as a scribe. Based on total visit time, I have performed more than 50% of the visit. Patient Condition at Discharge: Fair Plan - Discharge Summary Discharge Rx Participant: Yes New Discharge Prescriptions: New Furosemide [Lasix] 20 mg PO HS #30 tab predniSONE See Taper PO DIRECTED #30 tab Amoxic-Pot Clav 875-125Mg [Augmentin 875-125] 1 tab PO Q12HR 7 Days #14 tab Ipratropium-Albuterol Nebulize [Duoneb 0.5 mg-3 mg/3 ml Soln] 3 ml INHALATION RT-QID #100 each Furosemide [Lasix] 40 mg PO DAILY #30 tab valACYclovir HCL [Valtrex] 1,000 mg PO BID 7 Days #14 tab Continue Simvastatin [Zocor] 20 mg PO HS rOPINIRole HCL [Requip] 3 mg PO TID Levothyroxine Sodium [Synthroid] 112 mcg PO DAILY Pregabalin [Lyrica] 75 mg PO TID Potassium Chloride ER [K-Dur 10] 10 meq PO DAILY Furosemide [Lasix] 20 mg PO BID Aspirin 81 mg PO DAILY Isosorbide Mononitrate [Isosorbide Mononitrate ER] 30 mg PO DAILY Pantoprazole [Protonix] 40 mg PO DAILY HYDROcodone/APAP 5-325MG [[place] 5-325] 1 tab PO QID Albuterol Inhaler [Ventolin Hfa Inhaler] 2 puff INHALATION RT-Q6H PRN PRN Reason: Shortness Of Breath Empagliflozin [Jardiance] 10 mg PO DAILY Spironolactone 12.5 mg PO DAILY DULoxetine HCL [Cymbalta] 60 mg PO DAILY Ibuprofen [Motrin] 600 mg PO Q8HR PRN PRN Reason: Pain methocarbamoL [Robaxin] 500 mg PO BID Metoprolol Succinate (ER) [Toprol XL] 50 mg PO DAILY Sennosides [Senokot] 17.2 mg PO HS Changed Famotidine 20 mg PO DAILY #0 Discharge Medication List Simvastatin [Zocor] 20 mg PO HS 11/10/14 [History] rOPINIRole HCL [Requip] 3 mg PO TID 01/16/17 [History] Levothyroxine Sodium [Synthroid] 112 mcg PO DAILY 06/04/17 [History] Pantoprazole [Protonix] 40 mg PO DAILY 05/01/21 [History] Pregabalin [Lyrica] 75 mg PO TID 09/08/21 [History] Potassium Chloride ER [K-Dur 10] 10 meq PO DAILY 11/12/22 [History] Aspirin 81 mg PO DAILY 04/23/23 [History] Furosemide [Lasix] 20 mg PO BID 04/23/23 [History] Albuterol Inhaler [Ventolin Hfa Inhaler] 2 puff INHALATION RT-Q6H PRN 02/20/24 [History] Empagliflozin [Jardiance] 10 mg PO DAILY 02/20/24 [History] HYDROcodone/APAP 5-325MG [[place] 5-325] 1 tab PO QID 02/20/24 [History] Isosorbide Mononitrate [Isosorbide Mononitrate ER] 30 mg PO DAILY 02/20/24 [History] Spironolactone 12.5 mg PO DAILY 02/20/24 [History] DULoxetine HCL [Cymbalta] 60 mg PO DAILY 10/30/24 [History] Ibuprofen [Motrin] 600 mg PO Q8HR PRN 10/30/24 [History] Metoprolol Succinate (ER) [Toprol XL] 50 mg PO DAILY 10/30/24 [History] Sennosides [Senokot] 17.2 mg PO HS 10/30/24 [History] methocarbamoL [Robaxin] 500 mg PO BID 10/30/24 [History] Amoxic-Pot Clav 875-125Mg [Augmentin 875-125] 1 tab PO Q12HR 7 Days #14 tab 11/09/24 [Rx] Famotidine 20 mg PO DAILY #0 11/09/24 [Rx] Furosemide [Lasix] 20 mg PO HS #30 tab 11/09/24 [Rx] Furosemide [Lasix] 40 mg PO DAILY #30 tab 11/09/24 [Rx] Ipratropium-Albuterol Nebulize [Duoneb 0.5 mg-3 mg/3 ml Soln] 3 ml INHALATION RT-QID #100 each 11/09/24 [Rx] predniSONE See Taper PO DIRECTED #30 tab 11/09/24 [Rx] valACYclovir HCL [Valtrex] 1,000 mg PO BID 7 Days #14 tab 11/09/24 [Rx] Follow up Appointment(s)/Referral(s): Jan Faustin MD [STAFF PHYSICIAN] - 11/24/24 2:00 pm Ajay Ulrich DO [STAFF PHYSICIAN] - 12/08/24 9:15 am [facility] [NON-STAFF] - As Needed ([facility] will call patient after discharge to schedule services) Activity/Diet/Wound Care/Special Instructions: Activity limited until follow-up Continue taking medications as prescribed Continue with antibiotics and finish the course Continue prednisone taper Follow-up with pulmonary outpatient Follow-up with primary care provider on discharge Discharge Disposition: HOME WITH HOME HEALTH SERVICES
--- NOTE | 2024-11-09 10:40 | P.PN ---
Subjective Progress Note Date: 11/09/24 The patient is seen today November 08, 2024 in follow-up on the regular medical floor. She is currently resting comfortably in bed. Maintaining good O2 saturations in the 90s on 2 L/min per nasal cannula. She is afebrile. Hemodynamically stable. Awake and alert in no acute distress. She is feeling b ack to her baseline. No worsening shortness of breath, cough or congestion. Sodium 134. Potassium 5.0. Bicarb 23. BUN 61. Creatinine 2.4. Glucose 118. Sputum culture revealed no growth. She is on DuoNeb and elations, Symbicort, Solu-Medrol. Anticoagulated with Eliquis. Diuretics and Entresto remain on hold due to renal failure per nephrology. The patient is seen today November 09, 2024 in follow-up on the regular medical floor. She is awake and alert in no acute distress. Maintaining good O2 saturations in the 90s on 2 L/min per nasal cannula. She denies any worsening shortness of breath, cough or congestion. She remains on Zosyn. Heparin for DVT prophylaxis. Remains on oral diuretics. Continued on bronchodilators and a prednisone taper. Chest x-ray continues to show some right lower lobe consolidation, some of which is chronic in nature. Blood culture revealed no gr owth. White count 14.1. Hemoglobin 8.7. Platelets 164. Objective - Vital Signs Vital signs: Vital Signs Temp 97.7 F 11/09/24 07:46 Pulse 92 11/09/24 08:49 Resp 20 11/09/24 07:46 BP 94/60 11/09/24 07:46 Pulse Ox 97 11/09/24 07:46 FiO2 40 11/04/24 23:24 Intake & Output 11/08/24 11/09/24 11/09/24 18:59 06:59 18:59 Intake Total 440 Balance 440 Weight 56.9 kg Intake: Intake, IV Titration 200 Amount Piperacillin-Tazobactam 3 200 .375 gm In Sodium Chloride 0.9% 100 ml @ 25 mls/hr IVPB Q8H [facility] Rx#: [id number] Oral 240 Other: Voiding Method Diaper Diaper Diaper Incontinent Incontinent Incontinent - Exam GENERAL EXAM: Alert, pleasant 79-year-old female, resting comfortably in bed, on 3 L nasal cannula, in no apparent distress. HEAD: Normocephalic. EYES: Normal reaction of pupils, equal size. NOSE: Clear with pink turbinates. THROAT: No erythema or exudates. NECK: No masses, no JVD. CHEST: No chest wall deformity. LUNGS: Equal air entry with faint crackles in the right lung base. CVS: S1 and S2 normal with no audible murmur, regular rhythm. ABDOMEN: No hepatosplenomegaly, normal bowel sounds, no guarding or rigidity. SPINE: No scoliosis or deformity SKIN: No rashes CENTRAL NERVOUS SYSTEM: No focal deficits, tone is normal in all 4 extremities. EXTREMITIES: There is no peripheral edema. No clubbing, no cyanosis. Peripheral pulses are intact. - Labs CBC & Chem 7: 11/09/24 06:21 11/08/24 07:18 Labs: Abnormal Lab Results - Last 24 Hours (Table) 11/08/24 11/08/24 11/09/24 Range/Units 07:18 07:18 06:21 WBC 15.45 H 14.1 H (4.50-10.00) X 10*3/uL RBC 4.02 L (4.10-5.20) X 10*6/uL Hgb 8.6 L 8.7 L (12.0-15.0) g/dL Hct 33.9 L 30.9 L (37.2-46.3) % MCH 21.4 L 22.8 L (27.0-32.0) pg MCHC 25.4 L 28.0 L (32.0-37.0) g/dL RDW 25.5 H 23.5 H (11.5-14.5) % Immature Gran # 0.16 H (0.00-0.04) X 10*3/uL Neutrophils # 13.41 H 12.9 H (1.80-7.70) X 10*3/uL Lymphocytes # 0.82 L 0.6 L (0.90-5.00) X 10*3/uL Monocytes # 1.04 H (0.20-1.00) X 10*3/uL Eosinophils # 0.01 L (0.04-0.35) X 10*3/uL NRBC/100 WBC Diff 0.05 H (0.00-0.01) X 10*3/uL Carbon Dioxide 34.0 H (21.6-31.8) mmol/L Est GFR (CKD-EPI) 58 L (>=60) BUN/Creatinine Ratio 21.00 H (12.00-20.00) Ratio Calcium 8.5 L (8.7-10.3) mg/dL Microbiology - Last 24 Hours (Table) 11/03/24 12:53 Blood Culture - Final Blood Assessment and Plan Assessment: Acute hypoxemic and hypercapnic respiratory failure, secondary to exacerbation of chronic obstructive pulmonary disease and diastolic chronic congestive heart failure. The patient remains on oxygen at 3 L/min nasal cannula. Chronic hypoxemic respiratory failure Metabolic alkalosis secondary to diuresis History of hypertension History of COPD CHF with valvular heart disease with severe mitral regurgitation, moderate tricuspid regurgitation and severe pulm hypertension on echocardiogram that was done on 11/02/2024 Metabolic alkalosis, likely secondary to diuretics. The patient is negative fluid balance History of hyperlipidemia History of hypothyroidism Previous history of CVA History of restless leg syndrome Prior history of tobacco use Plan: The patient was seen and evaluated Labs and medications reviewed Cleared for discharge Continue her home oxygen, pulmonary medications Complete a prednisone taper Antibiotics per ID service Follow-up in our office in 1 week This patient was seen independently by the pulmonary nurse practitioner addressing pulmonary issues I have personally seen and examined the patient, performed the documentation and the assessment and plan as written. Number of minutes spent on the visit: 23 Dictation was produced using [employer] dictation software. Please excuse any grammatical, word or spelling errors.
--- NOTE | 2024-11-10 13:01 | P.PN ---
Subjective Progress Note Date: 11/09/24 Principal diagnosis: Reason for follow-up is leukocytosis and pneumonia Patient is a 79-year-old female with a past medical history significant for COPD CVA TIA hypertension hyperlipidemia osteoarthritis presenting to the hospital for evaluation of increasing shortness of breath patient did have a normal white count admission subsequent did have a jump in the white count with the patient was started on Zosyn ID was consulted for further management. On today's evaluation that is 11/09/2024, Patient is afebrile this morning patient denies having any chest pain shortness of breath and cough is decreased in intensity, the patient is currently on room air, patient denies any abdominal pain no diarrhea no nausea no vomiting, feeling better wants to go home. Patient white count is down to 14.1, creat is 1.0 blood culture negative sputum not collected Objective - Vital Signs Vital signs: Vital Signs Temp 97.7 F 11/09/24 07:46 Pulse 92 11/09/24 08:49 Resp 20 11/09/24 07:46 BP 94/60 11/09/24 07:46 Pulse Ox 97 11/09/24 07:46 FiO2 40 11/04/24 23:24 Intake & Output 11/08/24 11/09/24 11/09/24 18:59 06:59 18:59 Intake Total 440 Balance 440 Weight 56.9 kg Intake: Intake, IV Titration 200 Amount Piperacillin-Tazobactam 3 200 .375 gm In Sodium Chloride 0.9% 100 ml @ 25 mls/hr IVPB Q8H [facility] Rx#: [id number] Oral 240 Other: Voiding Method Diaper Diaper Diaper Incontinent Incontinent Incontinent - Exam GENERAL DESCRIPTION: An elderly female lying in bed in no distress RESPIRATORY SYSTEM: Unlabored breathing , decreased breath sounds at bases HEART: S1 S2 regular rate and rhythm , ABDOMEN: Soft , no tenderness EXTREMITIES: No edema feet - Labs CBC & Chem 7: 11/09/24 06:21 11/08/24 07:18 Labs: Abnormal Lab Results - Last 24 Hours (Table) 11/09/24 Range/Units 06:21 WBC 14.1 H (3.8-10.6) k/uL Hgb 8.7 L (11.4-16.0) gm/dL Hct 30.9 L (34.0-46.0) % MCH 22.8 L (25.0-35.0) pg MCHC 28.0 L (31.0-37.0) g/dL RDW 23.5 H (11.5-15.5) % Neutrophils # 12.9 H (1.3-7.7) k/uL Lymphocytes # 0.6 L (1.0-4.8) k/uL Microbiology - Last 24 Hours (Table) 11/03/24 12:53 Blood Culture - Final Blood Assessment and Plan (1) Leukocytosis Status: Acute Code(s): D72.829 - ELEVATED WHITE BLOOD CELL COUNT, UNSPECIFIED SNOMED Code(s): 254567817 (2) Allergy to multiple antibiotics Status: Acute Code(s): Z88.1 - ALLERGY STATUS TO OTHER ANTIBIOTIC AGENTS SNOMED Code(s): 875391348 Plan: 1patient initially presented to the hospital with increasing shortness of breath and cough which is likely multifactorial possibly related to COPD exacerbation tracheobronchitis/CHF patient was noticed to have increasing white count which could be related to the steroids however the white count did came down after the patient started on Zosyn and possible component of pneumonia. 2patient with multiple antibiotic ALLERGIES that would limit the number of antibiotic safe to use. 3patient did have CT of the chest abdominal pelvis suggestive of right lower infiltrate concerning for possible pneumonia. 4patient has shown clinical improvement she will finish therapy with oral Ave lox 400 mg daily for 5 days discussed with [facility] for admitting team working on discharge Dictation was produced using [employer] dictation software. please excuse any grammatical, word or spelling errors. Time with Patient: Less than 30
== END 2024-11-09 12:26 | disposition home health service (06) | DRG 291 ==
LOC: EC 01:07 → 2SICU 03:27 → 5NMEDONC 10-31 12:48
PROVIDERS: ADMIT Hospitalist; ATTEND Hospitalist
PROC: 5A09557 Assistance with Respiratory Ventilation, Greater than 96 Consecutive Hours, Continuous Positive Airway Pressure (ICD-10-PCS; principal; 2024-10-30)
DX: I11.0 Hypertensive heart disease with heart failure (principal); A41.9 Sepsis, unspecified organism; I50.33 Acute on chronic diastolic (congestive) heart failure; J96.21 Acute and chronic respiratory failure with hypoxia; J96.22 Acute and chronic respiratory failure with hypercapnia; J18.9 Pneumonia, unspecified organism; R65.20 Severe sepsis without septic shock; J15.69 Pneumonia due to other Gram-negative bacteria; J69.0 Pneumonitis due to inhalation of food and vomit; J44.1 Chronic obstructive pulmonary disease with (acute) exacerbation; J44.0 Chronic obstructive pulmonary disease with (acute) lower respiratory infection; E87.4 Mixed disorder of acid-base balance; N17.9 Acute kidney failure, unspecified; Z11.52 Encounter for screening for COVID-19; D50.9 Iron deficiency anemia, unspecified; E78.5 Hyperlipidemia, unspecified; I27.20 Pulmonary hypertension, unspecified; F40.240 Claustrophobia; I08.1 Rheumatic disorders of both mitral and tricuspid valves; G25.81 Restless legs syndrome; R13.10 Dysphagia, unspecified; E87.6 Hypokalemia; G47.33 Obstructive sleep apnea (adult) (pediatric); E03.9 Hypothyroidism, unspecified; G89.29 Other chronic pain; I25.10 Atherosclerotic heart disease of native coronary artery without angina pectoris; I25.2 Old myocardial infarction; I25.5 Ischemic cardiomyopathy; I48.0 Paroxysmal atrial fibrillation; T50.2X5A Adverse effect of carbonic-anhydrase inhibitors, benzothiadiazides and other diuretics, initial encounter; I65.22 Occlusion and stenosis of left carotid artery; Z79.01 Long term (current) use of anticoagulants; Z79.51 Long term (current) use of inhaled steroids; Z79.82 Long term (current) use of aspirin; Z79.84 Long term (current) use of oral hypoglycemic drugs; Z79.890 Hormone replacement therapy; Z79.899 Other long term (current) drug therapy; Z80.8 Family history of malignant neoplasm of other organs or systems; Z86.73 Personal history of transient ischemic attack (TIA), and cerebral infarction without residual deficits; Z87.891 Personal history of nicotine dependence; Z88.1 Allergy status to other antibiotic agents; Z90.710 Acquired absence of both cervix and uterus; Z95.1 Presence of aortocoronary bypass graft; Z95.2 Presence of prosthetic heart valve; Z95.5 Presence of coronary angioplasty implant and graft; Z96.611 Presence of right artificial shoulder joint; Z82.5 Family history of asthma and other chronic lower respiratory diseases; Z80.49 Family history of malignant neoplasm of other genital organs; Z96.651 Presence of right artificial knee joint; Z98.1 Arthrodesis status; Z99.81 Dependence on supplemental oxygen; Z88.8 Allergy status to other drugs, medicaments and biological substances; Z88.2 Allergy status to sulfonamides; Z88.5 Allergy status to narcotic agent; Z98.42 Cataract extraction status, left eye; Z98.41 Cataract extraction status, right eye; Z87.19 Personal history of other diseases of the digestive system
CPT/HCPCS: 36415; 36600; 71045; 71046; 71250; 74150; 80048; 80053; 81003; 82728; 82803; 82805; 83540; 83550; 83605; 83735; 83880; 84132; 84145; 84484; 85025; 85610; 85652; 85730; 86140; 87040; 87636; 93005; 93306; 94640; 94660; 94760; 96361; 96365; 96372; 96375; 96376; 99291

== ENCOUNTER 2024-11-15 03:28 | Emergency (ER) | payer MEDICARE ==
[2024-11-15 03:35] VITALS: TEMP 98.4
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
[2024-11-15] MEDS: HYDROcodone/APAP 5-325MG 1 EACH TAB PO STA (04:54)
[2024-11-15 05:09] LABS: Anisocytosis Marked; Basophils % (A) 0 %; Eosinophils # (A) 0.1 k/uL (0-0.7); Eosinophils % (A) 1 %; HCT 34.6 % (34.0-46.0); HGB 10.3 gm/dL (11.4-16.0); Hypochromasia Marked; Lymphocytes # (A) 0.6 k/uL (1.0-4.8); Lymphocytes % (A) 5 %; MCH 24.7 pg (25.0-35.0); MCHC 29.7 g/dL (31.0-37.0); Macrocytosis Slight; Mean Platelet Volume 9.2; Microcytosis Moderate; Monocytes # (A) 0.5 k/uL (0-1.0); Monocytes % (A) 4 %; Neutrophils # (A) 11.3 k/uL (1.3-7.7); Neutrophils % (A) 90 %; Platelet Count 157 k/uL (150-450); RBC 4.17 m/uL (3.80-5.40); WBC 12.6 k/uL (3.8-10.6)
--- NOTE | 2024-11-15 05:09 | XR ---
EXAM: XR Chest, 2 Views CLINICAL HISTORY: ITS.REASON XR Reason: difficulty breathing TECHNIQUE: Frontal and lateral views of the chest. COMPARISON: X-ray dated 03/11/2023 FINDINGS: Lungs: Confluent airspace opacities are seen within the right lower lobe. The lungs are hyperinflated with flattening of the diaphragms. Pleural space: Unremarkable. No pneumothorax. Heart: Mild the cardiac silhouette. Mediastinum: Unremarkable. Normal mediastinal contour. Bones/joints: Post changes are seen to the right shoulder. Degenerative changes are seen in the spine. No acute fracture. IMPRESSION: Right lower lobe pneumonia.
[2024-11-15 05:24] LABS: ALT 13 U/L (4-34); AST 36 U/L (14-36); African American GFR (CKD) 75 (>60 ml/min/1.73 sqM); Albumin 3.5 g/dL (3.5-5.0); Alkaline Phosphatase 59 U/L (38-126); Anion Gap 6 mmol/L; Blood Urea Nitrogen 13 mg/dL (7-17); Calcium 8.7 mg/dL (8.4-10.2); Carbon Dioxide 27 mmol/L (22-30); Chloride 103 mmol/L (98-107); Glucose 91 mg/dL (74-99); Non-African American GFR(CKD) 65 (>60 ml/min/1.73 sqM); Partial Thromboplastin Time 25.3 sec (22.0-30.0); Potassium 4.8 mmol/L (3.5-5.1); Prothrombin Time 11.4 sec (10.0-12.5); Sodium 136 mmol/L (137-145); Total Bilirubin 1.2 mg/dL (0.2-1.3); Total Protein 6.1 g/dL (6.3-8.2)
[2024-11-15 05:30] LABS: NT-Pro-B-Type Natriuretic Pept 1430 pg/mL
[2024-11-15 05:35] LABS: RDW 27.8 % (11.5-15.5)
[2024-11-15 06:18] VITALS: BP 117/62; PULSE 97; RESP 16
== END 2024-11-15 06:15 | disposition home or self-care (01) ==
LOC: EC 03:28
DX: J44.9 Chronic obstructive pulmonary disease, unspecified (principal); I11.0 Hypertensive heart disease with heart failure; I50.9 Heart failure, unspecified; Z88.1 Allergy status to other antibiotic agents; Z88.2 Allergy status to sulfonamides; Z88.5 Allergy status to narcotic agent; Z88.8 Allergy status to other drugs, medicaments and biological substances; Z79.82 Long term (current) use of aspirin; Z79.899 Other long term (current) drug therapy; Z87.891 Personal history of nicotine dependence; Z86.73 Personal history of transient ischemic attack (TIA), and cerebral infarction without residual deficits
CPT/HCPCS: 36415; 71046; 80053; 83605; 83880; 84484; 85025; 85610; 85730; 93005; 99285